=== PATIENT | male | born 1940 | race Caucasian/White ===

== ENCOUNTER 2020-04-22 06:26 | Outpatient (REF) | payer MEDICARE, MEDICAID, SELFPAY ==
[2020-04-22 07:23] LABS: MANUAL DIFF FLAG NO
[2020-04-22 07:26] LABS: Basophils Percent Auto 0.5 % (0-2); Eosinophils Absolute Auto 0.3 X10*3/uL (0.0-0.4); Hematocrit 44.7 % (42-52); Hemoglobin 14.6 g/dl (14.0-18.0); Imm Gran Abs Auto 0.03 X10*3/uL (0.00-0.03); Imm Gran Pct Auto 0.4 % (0.0-0.4); Lymphocytes Absolute Auto 2.4 X10*3/uL (1.2-4.9); Lymphocytes Percent Auto 31.2 % (20-40); Mean Corpuscular HGB Conc 32.7 g/dl (31.0-36.0); Mean Corpuscular Hemoglobin 31.3 pg (27.0-33.0); Mean Corpuscular Volume 95.7 fL (80-98); Mean Platelet Volume 10.3 fL (9.4-12.4); Monocytes Absolute Auto 0.7 X10*3/uL (0.1-1.2); Monocytes Percent Auto 9.5 % (2-11); Neutrophils Absolute Auto 4.3 X10*3/uL (2.0-8.3); Neutrophils Percent Auto 54.4 % (45-73); Platelet Count 259 X10*3/uL (160-400); Red Blood Count 4.67 X10*6/uL (4.60-5.80); Red Cell Distribution Width 13.2 % (11.0-16.0); White Blood Count 7.8 X10*3/uL (4.8-10.8)
[2020-04-22 07:51] LABS: Alanine Aminotransferase 35 U/L (0-40); Albumin Level 4.1 g/dL (3.5-5.0); Alkaline Phosphatase 65 U/L (39-117); Anion Gap 14 (12-20); Aspartate Amino Transferase 19 U/L (5-37); Bilirubin Total 0.2 mg/dL (0.0-1.0); Blood Urea Nitrogen 15 mg/dL (9-16); Carbon Dioxide 27 mmol/L (22-29); Chloride 102 mmol/L (96-108); Cholesterol 149 mg/dL; Estimated Glomerular Filt Rate > 60; Glucose Fasting 139 mg/dL (60-99); HDL Cholesterol 32 mg/dL; LDL Cholesterol Calculated 81 mg/dl; Potassium 4.7 mmol/l (3.3-5.1); Sodium 138 mmol/L (135-145); Total Protein 6.7 g/dL (6.5-8.0); Triglycerides 184 mg/dL
[2020-04-22 08:03] LABS: Estimated Average Glucose 200 mg/dL; Hemoglobin A1c % 8.6 %
== END 2020-04-22 06:27 | disposition home or self-care (01) ==
LOC: HO.LAB 06:26
PROVIDERS: Visit Provider Internal Medicine Medical Oncology
DX: E78.5 Hyperlipidemia, unspecified (principal); E11.9 Type 2 diabetes mellitus without complications
CPT/HCPCS: 36415; 80053; 80061; 83036; 85025

== ENCOUNTER 2020-07-15 07:16 | Outpatient (REF) | payer MEDICARE, MEDICAID, SELFPAY ==
[2020-07-15 07:41] LABS: MANUAL DIFF FLAG NO
[2020-07-15 07:53] LABS: Estimated Average Glucose 189 mg/dL; Hemoglobin A1c % 8.2 %
[2020-07-15 07:56] LABS: Basophils Percent Auto 0.5 % (0-2); Eosinophils Absolute Auto 0.3 X10*3/uL (0.0-0.4); Eosinophils Percent Auto 3.9 % (0-4); Hematocrit 44.5 % (42-52); Hemoglobin 14.6 g/dl (14.0-18.0); Imm Gran Abs Auto 0.02 X10*3/uL (0.00-0.03); Imm Gran Pct Auto 0.3 % (0.0-0.4); Lymphocytes Absolute Auto 2.6 X10*3/uL (1.2-4.9); Lymphocytes Percent Auto 32.3 % (20-40); Mean Corpuscular HGB Conc 32.8 g/dl (31.0-36.0); Mean Corpuscular Hemoglobin 30.7 pg (27.0-33.0); Mean Corpuscular Volume 93.5 fL (80-98); Mean Platelet Volume 10.1 fL (9.4-12.4); Monocytes Absolute Auto 0.8 X10*3/uL (0.1-1.2); Monocytes Percent Auto 9.5 % (2-11); Neutrophils Absolute Auto 4.3 X10*3/uL (2.0-8.3); Neutrophils Percent Auto 53.5 % (45-73); Platelet Count 285 X10*3/uL (160-400); Red Blood Count 4.76 X10*6/uL (4.60-5.80); Red Cell Distribution Width 13.3 % (11.0-16.0)
[2020-07-15 08:20] LABS: Alanine Aminotransferase 30 U/L (0-40); Albumin Level 4.1 g/dL (3.5-5.0); Alkaline Phosphatase 73 U/L (39-117); Anion Gap 14 (12-20); Aspartate Amino Transferase 22 U/L (5-37); Bilirubin Total 0.7 mg/dL (0.0-1.0); Blood Urea Nitrogen 14 mg/dL (9-16); Calcium 8.8 mg/dL (8.4-10.2); Carbon Dioxide 30 mmol/L (22-29); Chloride 101 mmol/L (96-108); Cholesterol 149 mg/dL; Estimated Glomerular Filt Rate > 60; Glucose Fasting 136 mg/dL (60-99); HDL Cholesterol 35 mg/dL; LDL Cholesterol Calculated 89 mg/dl; Potassium 4.6 mmol/L (3.3-5.1); Sodium 140 mmol/L (135-145); Total Protein 6.7 g/dL (6.5-8.0); Triglycerides 125 mg/dL
== END 2020-07-15 07:17 | disposition home or self-care (01) ==
LOC: HO.LAB 07:16
PROVIDERS: Visit Provider Internal Medicine Medical Oncology
DX: E78.5 Hyperlipidemia, unspecified (principal); I10 Essential (primary) hypertension; E11.9 Type 2 diabetes mellitus without complications
CPT/HCPCS: 36415; 80053; 80061; 83036; 85025

== ENCOUNTER 2020-10-14 05:55 | Outpatient (REF) | payer MEDICARE, MEDICAID, SELFPAY ==
[2020-10-14 06:59] LABS: MANUAL DIFF FLAG NO
[2020-10-14 07:05] LABS: Basophils Percent Auto 0.5 % (0-2); Eosinophils Absolute Auto 0.3 X10*3/uL (0.0-0.4); Eosinophils Percent Auto 3.6 % (0-4); Hematocrit 46.3 % (42-52); Imm Gran Abs Auto 0.03 X10*3/uL (0.00-0.03); Imm Gran Pct Auto 0.3 % (0.0-0.4); Lymphocytes Absolute Auto 2.4 X10*3/uL (1.2-4.9); Lymphocytes Percent Auto 28.1 % (20-40); Mean Corpuscular HGB Conc 32.4 g/dl (31.0-36.0); Mean Corpuscular Hemoglobin 30.2 pg (27.0-33.0); Mean Corpuscular Volume 93.3 fL (80-98); Mean Platelet Volume 10.4 fL (9.4-12.4); Monocytes Absolute Auto 0.8 X10*3/uL (0.1-1.2); Monocytes Percent Auto 8.9 % (2-11); Neutrophils Percent Auto 58.6 % (45-73); Platelet Count 249 X10*3/uL (160-400); Red Blood Count 4.96 X10*6/uL (4.60-5.80); Red Cell Distribution Width 13.7 % (11.0-16.0); White Blood Count 8.6 X10*3/uL (4.8-10.8)
[2020-10-14 07:23] LABS: Alanine Aminotransferase 31 U/L (0-40); Albumin Level 4.5 g/dL (3.5-5.0); Alkaline Phosphatase 81 U/L (39-117); Anion Gap 13 (12-20); Aspartate Amino Transferase 20 U/L (5-37); Bilirubin Total 0.5 mg/dL (0.0-1.0); Blood Urea Nitrogen 15 mg/dL (9-16); Calcium 9.3 mg/dL (8.4-10.2); Carbon Dioxide 29 mmol/L (22-29); Chloride 102 mmol/L (96-108); Cholesterol 181 mg/dL; Estimated Glomerular Filt Rate > 60; Glucose Fasting 143 mg/dL (60-99); HDL Cholesterol 37 mg/dL; LDL Cholesterol Calculated 117 mg/dl; Potassium 4.5 mmol/L (3.3-5.1); Sodium 139 mmol/L (135-145); Total Protein 7.1 g/dL (6.5-8.0); Triglycerides 138 mg/dL
[2020-10-14 07:33] LABS: Creatinine Urine 93.02 mg/dL; Microalbum/Creatinine Ratio Ur 374.1 ug/mg cr
[2020-10-14 08:19] LABS: Estimated Average Glucose 180 mg/dL; Hemoglobin A1c % 7.9 %
== END 2020-10-14 05:56 | disposition home or self-care (01) ==
LOC: HO.LAB 05:55
PROVIDERS: PCP Internal Medicine Medical Oncology; Visit Provider Internal Medicine Medical Oncology
DX: E11.9 Type 2 diabetes mellitus without complications (principal); E78.5 Hyperlipidemia, unspecified; I10 Essential (primary) hypertension
CPT/HCPCS: 36415; 80053; 80061; 82043; 83036; 85025

== ENCOUNTER 2021-01-13 06:06 | Outpatient (REF) | payer MEDICARE, MEDICAID, SELFPAY ==
[2021-01-13 06:40] LABS: MANUAL DIFF FLAG NO
[2021-01-13 06:51] LABS: Estimated Average Glucose 192 mg/dL; Hemoglobin A1c % 8.3 %
[2021-01-13 06:53] LABS: Basophils Percent Auto 0.4 % (0-2); Eosinophils Absolute Auto 0.4 X10*3/uL (0.0-0.4); Eosinophils Percent Auto 4.5 % (0-4); Hematocrit 43.3 % (42-52); Hemoglobin 14.2 g/dl (14.0-18.0); Imm Gran Abs Auto 0.06 X10*3/uL (0.00-0.03); Imm Gran Pct Auto 0.7 % (0.0-0.4); Lymphocytes Absolute Auto 2.6 X10*3/uL (1.2-4.9); Lymphocytes Percent Auto 28.4 % (20-40); Mean Corpuscular HGB Conc 32.8 g/dl (31.0-36.0); Mean Corpuscular Volume 94.5 fL (80-98); Mean Platelet Volume 10.2 fL (9.4-12.4); Monocytes Absolute Auto 0.9 X10*3/uL (0.1-1.2); Monocytes Percent Auto 9.4 % (2-11); Neutrophils Absolute Auto 5.2 X10*3/uL (2.0-8.3); Neutrophils Percent Auto 56.6 % (45-73); Platelet Count 252 X10*3/uL (160-400); Red Blood Count 4.58 X10*6/uL (4.60-5.80); Red Cell Distribution Width 13.9 % (11.0-16.0); White Blood Count 9.1 X10*3/uL (4.8-10.8)
[2021-01-13 06:58] LABS: Alanine Aminotransferase 38 U/L (0-40); Albumin Level 4.4 g/dL (3.5-5.0); Alkaline Phosphatase 70 U/L (39-117); Anion Gap 14 (12-20); Aspartate Amino Transferase 20 U/L (5-37); Bilirubin Total 0.3 mg/dL (0.0-1.0); Blood Urea Nitrogen 19 mg/dL (9-16); Calcium 9.5 mg/dL (8.4-10.2); Carbon Dioxide 27 mmol/L (22-29); Chloride 104 mmol/L (96-108); Cholesterol 182 mg/dL; Estimated Glomerular Filt Rate > 60; Glucose Fasting 191 mg/dL (60-99); HDL Cholesterol 38 mg/dL; LDL Cholesterol Calculated 105 mg/dl; Potassium 4.9 mmol/L (3.3-5.1); Sodium 140 mmol/L (135-145); Triglycerides 197 mg/dL
[2021-01-13 09:33] LABS: Creatinine Urine 97.21 mg/dL; Microalbum/Creatinine Ratio Ur 347.7 ug/mg cr
== END 2021-01-13 06:07 | disposition home or self-care (01) ==
LOC: HO.LAB 06:06
PROVIDERS: PCP Internal Medicine Medical Oncology; Visit Provider Internal Medicine Medical Oncology
DX: E78.5 Hyperlipidemia, unspecified (principal); E11.9 Type 2 diabetes mellitus without complications; I10 Essential (primary) hypertension
CPT/HCPCS: 36415; 80053; 80061; 82043; 83036; 85025

== ENCOUNTER 2021-03-10 07:41 | Outpatient (REF) | payer MEDICARE, MEDICAID, SELFPAY ==
[2021-03-10 08:03] LABS: MANUAL DIFF FLAG NO
[2021-03-10 08:17] LABS: Basophils Percent Auto 0.4 % (0-2); Eosinophils Absolute Auto 0.4 X10*3/uL (0.0-0.4); Eosinophils Percent Auto 3.9 % (0-4); Hematocrit 42.4 % (42-52); Hemoglobin 14.2 g/dl (14.0-18.0); Imm Gran Abs Auto 0.04 X10*3/uL (0.00-0.03); Imm Gran Pct Auto 0.4 % (0.0-0.4); Lymphocytes Absolute Auto 2.7 X10*3/uL (1.2-4.9); Lymphocytes Percent Auto 27.8 % (20-40); Mean Corpuscular HGB Conc 33.5 g/dl (31.0-36.0); Mean Corpuscular Hemoglobin 31.4 pg (27.0-33.0); Mean Corpuscular Volume 93.8 fL (80-98); Mean Platelet Volume 9.9 fL (9.4-12.4); Monocytes Absolute Auto 0.9 X10*3/uL (0.1-1.2); Monocytes Percent Auto 9.1 % (2-11); Neutrophils Absolute Auto 5.6 X10*3/uL (2.0-8.3); Neutrophils Percent Auto 58.4 % (45-73); Platelet Count 238 X10*3/uL (160-400); Red Blood Count 4.52 X10*6/uL (4.60-5.80); Red Cell Distribution Width 13.4 % (11.0-16.0); White Blood Count 9.6 X10*3/uL (4.8-10.8)
[2021-03-10 08:29] LABS: Estimated Average Glucose 192 mg/dL; Hemoglobin A1c % 8.3 %
[2021-03-10 08:47] LABS: Alanine Aminotransferase 29 U/L (0-40); Albumin Level 4.3 g/dL (3.5-5.0); Alkaline Phosphatase 76 U/L (39-117); Anion Gap 14 (12-20); Aspartate Amino Transferase 18 U/L (5-37); Bilirubin Total 0.6 mg/dL (0.0-1.0); Blood Urea Nitrogen 14 mg/dL (9-16); Calcium 9.3 mg/dL (8.4-10.2); Carbon Dioxide 28 mmol/L (22-29); Chloride 103 mmol/L (96-108); Estimated Glomerular Filt Rate > 60; Glucose Random 197 mg/dL (60-115); Potassium 4.9 mmol/L (3.3-5.1); Sodium 140 mmol/L (135-145); Total Protein 6.9 g/dL (6.5-8.0)
[2021-03-10 10:05] LABS: Prostate Specific Antigen 1.37 ng/mL (<0.05-4.0)
== END 2021-03-10 07:42 | disposition home or self-care (01) ==
LOC: HO.LAB 07:41
PROVIDERS: PCP Internal Medicine Medical Oncology; Visit Provider Internal Medicine Medical Oncology
DX: Z12.5 Encounter for screening for malignant neoplasm of prostate (principal); E11.9 Type 2 diabetes mellitus without complications; I10 Essential (primary) hypertension; N40.0 Benign prostatic hyperplasia without lower urinary tract symptoms; E78.5 Hyperlipidemia, unspecified
CPT/HCPCS: 36415; 80053; 83036; 84153; 85025

== ENCOUNTER 2021-06-17 06:54 | Outpatient (REF) | payer MEDICARE, MEDICAID, SELFPAY ==
[2021-06-17 07:05] LABS: MANUAL DIFF FLAG NO
[2021-06-17 07:10] LABS: Basophils Percent Auto 0.3 % (0-2); Eosinophils Absolute Auto 0.5 X10*3/uL (0.0-0.4); Eosinophils Percent Auto 5.2 % (0-4); Hematocrit 46.1 % (42.0-52.0); Hemoglobin 15.1 g/dl (14.0-18.0); Imm Gran Abs Auto 0.03 X10*3/uL (0.00-0.03); Imm Gran Pct Auto 0.3 % (0.0-0.4); Lymphocytes Absolute Auto 2.9 X10*3/uL (1.2-4.9); Lymphocytes Percent Auto 30.7 % (20-40); Mean Corpuscular HGB Conc 32.8 g/dl (31.0-36.0); Mean Corpuscular Hemoglobin 31.1 pg (27.0-33.0); Mean Corpuscular Volume 94.9 fL (80.0-98.0); Mean Platelet Volume 9.7 fL (9.4-12.4); Monocytes Absolute Auto 0.9 X10*3/uL (0.1-1.2); Monocytes Percent Auto 9.2 % (2-11); Neutrophils Percent Auto 54.3 % (45-73); Platelet Count 260 X10*3/uL (160-400); Red Blood Count 4.86 X10*6/uL (4.60-5.80); Red Cell Distribution Width 13.9 % (11.0-16.0); White Blood Count 9.3 X10*3/uL (4.8-10.8)
[2021-06-17 07:20] LABS: Estimated Average Glucose 180 mg/dL; Hemoglobin A1c % 7.9 %
[2021-06-17 07:33] LABS: Alanine Aminotransferase 25 U/L (0-40); Albumin Level 4.3 g/dL (3.5-5.0); Alkaline Phosphatase 72 U/L (39-117); Anion Gap 12 (12-20); Aspartate Amino Transferase 19 U/L (5-37); Bilirubin Total 0.4 mg/dL (0.0-1.0); Blood Urea Nitrogen 17 mg/dL (9-16); Calcium 9.6 mg/dL (8.4-10.2); Carbon Dioxide 28 mmol/L (22-29); Chloride 105 mmol/L (96-108); Cholesterol 185 mg/dL; Estimated Glomerular Filt Rate > 60; Glucose Fasting 162 mg/dL (60-99); HDL Cholesterol 32 mg/dL; LDL Cholesterol Calculated 93 mg/dl; Potassium 4.9 mmol/L (3.3-5.1); Sodium 140 mmol/L (135-145); Total Protein 7.1 g/dL (6.5-8.0); Triglycerides 303 mg/dL
== END 2021-06-17 06:55 | disposition home or self-care (01) ==
LOC: HO.LAB 06:54
PROVIDERS: PCP Internal Medicine Medical Oncology; Visit Provider Internal Medicine Medical Oncology
DX: E11.9 Type 2 diabetes mellitus without complications (principal); I10 Essential (primary) hypertension
CPT/HCPCS: 36415; 80053; 80061; 83036; 85025

== ENCOUNTER 2021-09-24 06:38 | Outpatient (REF) | payer MEDICARE, MEDICAID, SELFPAY ==
[2021-09-24 07:44] LABS: Blood Urea Nitrogen 18 mg/dL (9-16); Estimated Glomerular Filt Rate > 60
== END 2021-09-24 06:39 | disposition home or self-care (01) ==
LOC: HO.LAB 06:38
PROVIDERS: PCP Internal Medicine Medical Oncology; Visit Provider Surgery
DX: I73.9 Peripheral vascular disease, unspecified (principal)
CPT/HCPCS: 36415; 82565; 84520

== ENCOUNTER 2021-10-08 09:02 | Outpatient (REF) | payer MEDICARE, MEDICAID, SELFPAY ==
--- NOTE | ~2021-10-08 | CT_ITS ---
STUDY PERFORMED: CT ANGIOGRAM ABDOMEN, PELVIS AND LOWER EXTREMITY RUNOFF WITH CONTRAST HISTORY: Atherosclerosis of [place] arteries. DESCRIPTION: Routine abdominal aorta and lower extremity runoff CTA protocol with contrast was performed. 100 mL of Omnipaque 350 was administered. 3D POSTPROCESSING: Multiple 3-D angiographic images were processed from the initial data set by the [facility] under concurrent physician supervision. This CT examination was performed using dose optimization techniques as appropriate, variously including the following: *Automated exposure control *Adjustment of mA and/or kV according to patient size (this includes techniques or standardized protocols for targeted exams where dose is matched to indication/reason for exam; i.e. extremities or head) *Use of iterative reconstruction technique DLP: 407 mGy-cm. COMPARISON: CT abdomen and pelvis 07/15/2017, ultrasound abdomen 07/08/2017. FINDINGS: VASCULAR: ABDOMINAL AORTA: Calcific and noncalcific atherosclerotic changes with one area of mild narrowing just above the level of the DOC with moderate noncalcified plaque/thrombus filling the lumen on the right. No aortic aneurysm. No dissection. RIGHT LOWER EXTREMITY: - Common Iliac Artery: Atherosclerotic changes without stenosis. - Internal Iliac Artery: Origin stenosis. - External Iliac Artery: Wfyz-[id number]-qaqrvlca stenosis. - Common Femoral Artery: No stenosis. - Profunda Femoral Artery: Patent. - Superficial Femoral Artery: Multiple areas of severe stenoses in the mid SFA at and above the level of the adductor canal. - Popliteal Artery: No stenosis. - Tibioperoneal Trunk: Patent - Posterior Tibial Artery: Patent. - Peroneal Artery: Patent. - Anterior Tibial Artery: Patent. LEFT LOWER EXTREMITY: - Common Iliac Artery: Atherosclerotic changes without significant stenosis. - Internal Iliac Artery: Origin stenosis. - External Iliac Artery: Uuhy-ui-wdslpdfb disease. - Common Femoral Artery: No stenosis. - Profunda Femoral Artery: Patent. - Superficial Femoral Artery: Severe disease/occlusion of the adductor canal. - Popliteal Artery: Patent. - Tibioperoneal Trunk: Patent - Posterior Tibial Artery: Patent. - Peroneal Artery: Patent. - Anterior Tibial Artery: Patent. CELIOMESENTERIC ARTERIES: All patent with some mild ostial disease involving the SMA and DOC. RENAL ARTERIES: Single renal arteries bilaterally are patent. NONVASCULAR: Lung Bases: The visualized lung bases are unremarkable. There is reflux of IV contrast into the IVC. Liver, Gallbladder and Biliary Tree: The visualized liver is most likely enlarged although the entire liver is not included on the study. There is decreased attenuation consistent with hepatic steatosis. The gallbladder has small high-density layering densities consistent with gallstones seen on prior imaging studies better. The gallbladder is otherwise unremarkable with no evidence of gallbladder wall thickening, or obvious pericholecystic inflammatory changes. Pancreas: Unremarkable. Spleen: Unremarkable. Adrenal Glands: Unremarkable. Kidneys and Ureters: The kidneys are normal in size, shape, and attenuation. Bilateral Bosniak class I renal cysts are present which need no further imaging or follow up. No hydronephrosis, hydroureter, or calculi seen. No perinephric stranding. Bladder: Unremarkable. Gastrointestinal Tract: The small and large bowel are unremarkable. The appendix is not seen but there is no evidence of appendicitis. Abdominal Wall: Small inguinal hernias are seen containing only fat. Lymph Nodes: No retroperitoneal lymphadenopathy. Pelvic Viscera: There is BPH. Seminal vesicles appear normal. Osseous Structures: Degenerative changes are present in the spine. No bony destructive lesions. CT/CT angio abd aorta runoff IMPRESSION: 1. Mddx-cq-emcuolej atherosclerotic changes in the aorta. 2. Right runoff with mild iliac disease and multiple tight stenoses in the SFA with good 3-vessel peripheral runoff. 3. Left runoff with mild iliac disease and severe mid SFA stenoses/occlusive disease with good 3-vessel runoff. 4. Nonvascular findings significant for enlarged fatty liver and BPH among other findings described above.
[2021-10-08] MEDS: iohexoL 350 MG/ML 100 ML INFUS..BTL IV (10:40)
== END 2021-10-08 09:03 | disposition home or self-care (01) ==
LOC: HO.CT 09:02
PROVIDERS: PCP Internal Medicine Medical Oncology; Visit Provider Physician Assistant
DX: I70.213 Atherosclerosis of native arteries of extremities with intermittent claudication, bilateral legs (principal)
CPT/HCPCS: 75635; Q9967

== ENCOUNTER 2021-12-08 05:58 | Outpatient (REF) | payer MEDICARE, MEDICAID, SELFPAY ==
[2021-12-08 06:03] LABS: MANUAL DIFF FLAG NO
[2021-12-08 08:05] LABS: Basophils Percent Auto 0.3 % (0-2); Eosinophils Absolute Auto 0.4 X10*3/uL (0.0-0.4); Eosinophils Percent Auto 4.2 % (0-4); Hematocrit 43.8 % (42.0-52.0); Hemoglobin 14.2 g/dl (14.0-18.0); Imm Gran Abs Auto 0.04 X10*3/uL (0.00-0.03); Imm Gran Pct Auto 0.4 % (0.0-0.4); Lymphocytes Percent Auto 30.3 % (20-40); Mean Corpuscular HGB Conc 32.4 g/dl (31.0-36.0); Mean Corpuscular Hemoglobin 30.5 pg (27.0-33.0); Mean Corpuscular Volume 94.2 fL (80.0-98.0); Mean Platelet Volume 10.3 fL (9.4-12.4); Monocytes Absolute Auto 0.9 X10*3/uL (0.1-1.2); Monocytes Percent Auto 9.4 % (2-11); Neutrophils Absolute Auto 5.5 x10*3/uL (2.0-8.3); Neutrophils Percent Auto 55.4 % (45-73); Platelet Count 305 X10*3/uL (160-400); Red Blood Count 4.65 X10*6/uL (4.60-5.80); Red Cell Distribution Width 13.7 % (11.0-16.0); White Blood Count 9.9 X10*3/uL (4.8-10.8)
[2021-12-08 08:34] LABS: Alanine Aminotransferase 40 U/L (0-40); Albumin Level 4.4 g/dL (3.5-5.0); Alkaline Phosphatase 81 U/L (39-117); Anion Gap 14 (12-20); Aspartate Amino Transferase 27 U/L (5-37); Bilirubin Total 0.4 mg/dL (0.0-1.0); Blood Urea Nitrogen 17 mg/dL (9-16); Calcium 9.2 mg/dL (8.4-10.2); Carbon Dioxide 26 mmol/L (22-29); Chloride 102 mmol/L (96-108); Cholesterol 108 mg/dL; Estimated Glomerular Filt Rate > 60; Glucose Fasting 164 mg/dL (60-99); HDL Cholesterol 36 mg/dL; LDL Cholesterol Calculated 46 mg/dl; Potassium 5.3 mmol/L (3.3-5.1); Sodium 137 mmol/L (135-145); Total Protein 7.1 g/dL (6.5-8.0); Triglycerides 133 mg/dL
== END 2021-12-08 05:59 | disposition home or self-care (01) ==
LOC: HO.LAB 05:58
PROVIDERS: PCP Internal Medicine Medical Oncology; Visit Provider Internal Medicine Medical Oncology
DX: I10 Essential (primary) hypertension (principal); E11.9 Type 2 diabetes mellitus without complications; R91.1 Solitary pulmonary nodule; J44.9 Chronic obstructive pulmonary disease, unspecified; E78.5 Hyperlipidemia, unspecified
CPT/HCPCS: 36415; 80053; 80061; 82550; 85025

== ENCOUNTER 2021-12-22 06:22 | Outpatient (REF) | payer MEDICARE, MEDICAID, SELFPAY ==
[2021-12-22 08:00] LABS: Estimated Average Glucose 206 mg/dL; Hemoglobin A1c % 8.8 %
[2021-12-22 08:46] LABS: Prostate Specific Antigen 0.74 ng/mL (<0.05-4.0)
== END 2021-12-22 06:23 | disposition home or self-care (01) ==
LOC: HO.LAB 06:22
PROVIDERS: PCP Internal Medicine Medical Oncology; Visit Provider Internal Medicine Medical Oncology
DX: Z12.5 Encounter for screening for malignant neoplasm of prostate (principal); E11.9 Type 2 diabetes mellitus without complications; N40.0 Benign prostatic hyperplasia without lower urinary tract symptoms; E78.5 Hyperlipidemia, unspecified
CPT/HCPCS: 36415; 83036; 84153

== ENCOUNTER 2022-02-10 08:05 | Outpatient (REF) | payer MEDICARE, MEDICAID, SELFPAY ==
--- NOTE | ~2022-02-10 | US_ITS ---
EXAMINATION: US RETROPERITONEAL LIMITED (RENAL ONLY) CLINICAL INFORMATION: Kidney cyst. COMPARISON: CTA 10/08/2021. TECHNIQUE: Real-time imaging of the kidneys. FINDINGS: RIGHT KIDNEY: 11.7 x 4.9 x 5.2 cm (SAG x AP x TRV). The kidney is normal in size, contour, and echogenicity. Renal cortical thickness is normal. No renal calculi or hydronephrosis. Multiple anechoic right renal cysts are present the largest measuring 1.3 cm in the upper pole of the right kidney. LEFT KIDNEY: 11.9 x 4.9 x 5.0 cm (SAG x AP x TRV). The kidney is normal in size, contour, and echogenicity. Renal cortical thickness is normal. There is mild left hydronephrosis. Several calculi are seen, the largest 2.4 cm in the left mid kidney with a 7 mm left lower pole calculus. There is a 5.8 cm anechoic cyst exophytic from the lateral cortex of left mid kidney. US/US renal BI IMPRESSION: Mild left hydronephrosis with left-sided renal calculi up to 2.4 cm. Bilateral simple renal cysts for which no imaging follow-up is recommended.
== END 2022-02-10 08:06 | disposition home or self-care (01) ==
LOC: HO.US 08:05
PROVIDERS: Visit Provider Internal Medicine Medical Oncology
DX: N28.1 Cyst of kidney, acquired (principal); N28.89 Other specified disorders of kidney and ureter
CPT/HCPCS: 76775

== ENCOUNTER → 2022-02-17 11:56 | Outpatient (BNVA) | payer MEDICARE, MEDICAID, SELFPAY | PROVIDERS: PCP Internal Medicine Medical Oncology; Visit Provider Urology | DX: N20.0 Calculus of kidney (principal); N40.0 Benign prostatic hyperplasia without lower urinary tract symptoms | CPT/HCPCS: Q3014 ==

== ENCOUNTER 2022-03-23 06:41 | Outpatient (REF) | payer MEDICARE, MEDICAID, SELFPAY ==
[2022-03-23 06:56] LABS: MANUAL DIFF FLAG NO
[2022-03-23 07:57] LABS: Basophils Absolute Auto 0.1 X10*3/uL (0.0-0.2); Basophils Percent Auto 0.5 % (0-2); Eosinophils Absolute Auto 0.4 X10*3/uL (0.0-0.4); Eosinophils Percent Auto 4.5 % (0-4); Hematocrit 43.7 % (42.0-52.0); Hemoglobin 14.3 g/dl (14.0-18.0); Imm Gran Abs Auto 0.04 X10*3/uL (0.00-0.03); Imm Gran Pct Auto 0.4 % (0.0-0.4); Lymphocytes Absolute Auto 3.1 X10*3/uL (1.2-4.9); Lymphocytes Percent Auto 32.4 % (20-40); Mean Corpuscular HGB Conc 32.7 g/dl (31.0-36.0); Mean Corpuscular Volume 94.8 fL (80.0-98.0); Mean Platelet Volume 9.9 fL (9.4-12.4); Monocytes Absolute Auto 0.9 X10*3/uL (0.1-1.2); Monocytes Percent Auto 9.4 % (2-11); Neutrophils Percent Auto 52.8 % (45-73); Platelet Count 299 X10*3/uL (160-400); Red Blood Count 4.61 X10*6/uL (4.60-5.80); Red Cell Distribution Width 14.2 % (11.0-16.0); White Blood Count 9.5 X10*3/uL (4.8-10.8)
[2022-03-23 08:21] LABS: Alanine Aminotransferase 20 U/L (0-40); Albumin Level 4.4 g/dL (3.5-5.0); Alkaline Phosphatase 80 U/L (39-117); Anion Gap 16 (12-20); Aspartate Amino Transferase 15 U/L (5-37); Bilirubin Total 0.3 mg/dL (0.0-1.0); Blood Urea Nitrogen 15 mg/dL (9-16); Calcium 9.4 mg/dL (8.4-10.2); Carbon Dioxide 26 mmol/L (22-29); Chloride 104 mmol/L (96-108); Cholesterol 171 mg/dL; Estimated Glomerular Filt Rate > 60; Glucose Fasting 122 mg/dL (60-99); HDL Cholesterol 34 mg/dL; LDL Cholesterol Calculated 94 mg/dl; Potassium 4.4 mmol/L (3.3-5.1); Sodium 142 mmol/L (135-145); Triglycerides 215 mg/dL
[2022-03-23 08:40] LABS: Prostate Specific Antigen 0.77 ng/mL (<0.05-4.0)
[2022-03-23 08:54] LABS: Estimated Average Glucose 180 mg/dL; Hemoglobin A1c % 7.9 %
== END 2022-03-23 06:42 | disposition home or self-care (01) ==
LOC: HO.LAB 06:41
PROVIDERS: PCP Internal Medicine Medical Oncology; Visit Provider Internal Medicine Medical Oncology
DX: Z12.5 Encounter for screening for malignant neoplasm of prostate (principal); I10 Essential (primary) hypertension; E11.9 Type 2 diabetes mellitus without complications; J44.9 Chronic obstructive pulmonary disease, unspecified; N40.0 Benign prostatic hyperplasia without lower urinary tract symptoms; E78.5 Hyperlipidemia, unspecified
CPT/HCPCS: 36415; 80053; 80061; 83036; 84153; 85025

== ENCOUNTER 2022-06-05 13:36 | Outpatient (REF) | payer MEDICARE, MEDICAID, SELFPAY ==
--- NOTE | ~2022-06-05 | CT_ITS ---
EXAMINATION: CT KIDNEY STONE CLINICAL INFORMATION: Calculus of kidney. COMPARISON: Ultrasound abdomen 02/10/2022 and CTA 09/28/2021. TECHNIQUE: 5 mm thin axial and 2 mm thin sagittal and coronal reconstruction images of brain were obtained. DLP: 281 mGy-cm. This CT examination was performed using dose optimization technique as appropriate, variously including the following: Automated exposure control Adjustment of MA and/or KV according to patient size(this includes techniques or standardized protocols for targeted exams where dose is matched to indication/reason for exam; extremities or head. Use of iterative reconstruction techniques. FINDINGS: The lung bases are clear. Heart size is normal. The liver is mildly enlarged in size measuring 17 cm. It has normal contour and density. No focal lesions or intrahepatic ductal dilatation seen. The gallbladder is contracted with hyperdense material within question stone versus sludge on axial image 30/3. The spleen is unremarkable. The pancreas is unremarkable. Bilateral adrenal glands are symmetrical and normal. Both kidneys are normal size, shape and position. There is an exophytic 3.6 x 2.7 x 5.7 cm exophytic cyst along the lateral cortex of left kidney. Several of radiopaque calculi seen in lower pole left kidney with the largest measuring 8mm. There is a large partially obstructive 2.7 x 2.0 cm calculi left renal pelvis with mild hydronephrosis. No renal calculi seen in the right kidney. There is no right-sided hydronephrosis. There is bilateral perinephric stranding. The abdominal aorta appears atherosclerotic and nondilated. There is a left common iliac stent in place. No abnormal size lymph nodes seen. There is scattered stool and gas seen throughout the colon without distention. The small bowel loops are normal caliber. Appendix is not seen. No free air or free fluid seen. The abdominal wall is unremarkable. The prostate gland is normal size. The bladder is unremarkable. No abnormal-sized mediastinal or hilar lymph nodes seen. Bone windows reveal moderate ventral spondylosis. No aggressive lytic or sclerotic process seen. CT/CT kidney stone IMPRESSION: Multiple radiopaque left renal urolith. Mild partially obstructive hydronephrosis. The right kidney is unremarkable. There is a left common iliac stent. Mild hepatomegaly. Suspect small gallstone or debris.
== END 2022-06-05 13:37 | disposition home or self-care (01) ==
LOC: HO.CT 13:36
PROVIDERS: PCP Internal Medicine Medical Oncology; Visit Provider Urology
DX: N20.0 Calculus of kidney (principal)
CPT/HCPCS: 74176

== ENCOUNTER 2022-06-24 07:49 | Outpatient (REF) | payer MEDICARE, MEDICAID, SELFPAY ==
[2022-06-24 08:05] LABS: MANUAL DIFF FLAG NO
[2022-06-24 08:30] LABS: Hematocrit 44.4 % (42.0-52.0); Hemoglobin 14.6 g/dl (14.0-18.0); Imm Gran Pct Auto 0.3 % (0.0-0.4); Mean Corpuscular HGB Conc 32.9 g/dl (31.0-36.0); Mean Corpuscular Hemoglobin 30.8 pg (27.0-33.0); Mean Corpuscular Volume 93.7 fL (80.0-98.0); Mean Platelet Volume 10.1 fL (9.4-12.4); Neutrophils Percent Auto 53.9 % (45-73); Platelet Count 282 X10*3/uL (160-400); Red Blood Count 4.74 X10*6/uL (4.60-5.80); Red Cell Distribution Width 13.8 % (11.0-16.0)
[2022-06-24 08:31] LABS: Basophils Absolute Auto 0.1 X10*3/uL (0.0-0.2); Basophils Percent Auto 0.6 % (0-2); Eosinophils Absolute Auto 0.4 X10*3/uL (0.0-0.4); Eosinophils Percent Auto 4.7 % (0-4); Imm Gran Abs Auto 0.03 X10*3/uL (0.00-0.03); Lymphocytes Absolute Auto 2.9 X10*3/uL (1.2-4.9); Lymphocytes Percent Auto 32.3 % (20-40); Monocytes Absolute Auto 0.7 X10*3/uL (0.1-1.2); Monocytes Percent Auto 8.2 % (2-11); Neutrophils Absolute Auto 4.9 x10*3/uL (2.0-8.3)
[2022-06-24 09:00] LABS: Estimated Average Glucose 174 mg/dL; Hemoglobin A1c % 7.7 %
[2022-06-24 09:08] LABS: Alanine Aminotransferase 21 U/L (0-40); Albumin Level 4.4 g/dL (3.5-5.0); Alkaline Phosphatase 88 U/L (39-117); Anion Gap 15 (12-20); Aspartate Amino Transferase 18 U/L (5-37); Bilirubin Total 0.4 mg/dL (0.0-1.0); Blood Urea Nitrogen 19 mg/dL (9-16); Calcium 9.7 mg/dL (8.4-10.2); Carbon Dioxide 25 mmol/L (22-29); Chloride 105 mmol/L (96-108); Cholesterol 168 mg/dL; Estimated Glomerular Filt Rate > 60; Glucose Fasting 113 mg/dL (60-99); HDL Cholesterol 35 mg/dL; LDL Cholesterol Calculated 101 mg/dl; Potassium 4.9 mmol/L (3.3-5.1); Sodium 140 mmol/L (135-145); Triglycerides 161 mg/dL
[2022-06-24 09:30] LABS: Prostate Specific Antigen 0.81 ng/mL (<0.05-4.0)
[2022-06-24 09:56] LABS: Creatinine Urine 82.41 mg/dL
== END 2022-06-24 07:50 | disposition home or self-care (01) ==
LOC: HO.LAB 07:49
PROVIDERS: PCP Internal Medicine Medical Oncology; Visit Provider Internal Medicine Medical Oncology
DX: Z12.5 Encounter for screening for malignant neoplasm of prostate (principal); J44.9 Chronic obstructive pulmonary disease, unspecified; E11.9 Type 2 diabetes mellitus without complications; I10 Essential (primary) hypertension
CPT/HCPCS: 36415; 80053; 80061; 82043; 83036; 84153; 85025

== ENCOUNTER → 2022-08-18 10:56 | Outpatient (BNVA) | payer MEDICARE, MEDICAID, SELFPAY | PROVIDERS: PCP Internal Medicine Medical Oncology; Visit Provider Urology | DX: N20.0 Calculus of kidney (principal) | CPT/HCPCS: 99212 ==

== ENCOUNTER 2022-09-16 06:43 | Outpatient (REF) | payer MEDICARE, MEDICAID, SELFPAY ==
[2022-09-16 06:51] LABS: MANUAL DIFF FLAG NO
[2022-09-16 07:11] LABS: Basophils Absolute Auto 0.1 X10*3/uL (0.0-0.2); Basophils Percent Auto 0.5 % (0-2); Eosinophils Absolute Auto 0.4 X10*3/uL (0.0-0.4); Eosinophils Percent Auto 3.9 % (0-4); Hemoglobin 14.6 g/dl (14.0-18.0); Imm Gran Abs Auto 0.03 X10*3/uL (0.00-0.03); Imm Gran Pct Auto 0.3 % (0.0-0.4); Lymphocytes Absolute Auto 3.4 X10*3/uL (1.2-4.9); Lymphocytes Percent Auto 32.6 % (20-40); Mean Corpuscular HGB Conc 32.4 g/dl (31.0-36.0); Mean Corpuscular Hemoglobin 30.9 pg (27.0-33.0); Mean Corpuscular Volume 95.3 fL (80.0-98.0); Mean Platelet Volume 10.2 fL (9.4-12.4); Monocytes Percent Auto 9.3 % (2-11); Neutrophils Absolute Auto 5.5 x10*3/uL (2.0-8.3); Neutrophils Percent Auto 53.4 % (45-73); Platelet Count 293 X10*3/uL (160-400); Red Blood Count 4.72 X10*6/uL (4.60-5.80); Red Cell Distribution Width 13.8 % (11.0-16.0); White Blood Count 10.3 X10*3/uL (4.8-10.8)
[2022-09-16 07:26] LABS: Estimated Average Glucose 183 mg/dL
[2022-09-16 07:48] LABS: Alanine Aminotransferase 22 U/L (0-40); Albumin Level 4.3 g/dL (3.5-5.0); Alkaline Phosphatase 77 U/L (39-117); Anion Gap 17 (12-20); Aspartate Amino Transferase 15 U/L (5-37); Bilirubin Total 0.5 mg/dL (0.0-1.0); Blood Urea Nitrogen 23 mg/dL (9-16); Calcium 9.4 mg/dL (8.4-10.2); Carbon Dioxide 25 mmol/L (22-29); Chloride 103 mmol/L (96-108); Cholesterol 186 mg/dL; Estimated Glomerular Filt Rate > 60; Glucose Fasting 190 mg/dL (60-99); HDL Cholesterol 36 mg/dL; LDL Cholesterol Calculated 113 mg/dl; Potassium 5.1 mmol/L (3.3-5.1); Sodium 140 mmol/L (135-145); Total Protein 6.7 g/dL (6.5-8.0); Triglycerides 186 mg/dL
== END 2022-09-16 06:44 | disposition home or self-care (01) ==
LOC: HO.LAB 06:43
PROVIDERS: PCP Internal Medicine Medical Oncology; Visit Provider Internal Medicine Medical Oncology
DX: Z00.00 Encounter for general adult medical examination without abnormal findings (principal); E11.9 Type 2 diabetes mellitus without complications; I10 Essential (primary) hypertension; E78.5 Hyperlipidemia, unspecified
CPT/HCPCS: 36415; 80053; 80061; 83036; 85025

== ENCOUNTER → 2022-09-28 08:39 | Day surgery (SDC) | payer MEDICARE, MEDICAID, SELFPAY ==
[2022-09-24 10:58] VITALS: BMI 21.1
--- NOTE | 2022-09-25 10:10 | P.CONAN_ITS ---
Documented by User: Edel Mitchell NP 09/25/22 10:47 HPI - Anesthesia Eval Consult details Narrative: 82yo M Left Cystoscopy, Ureteroroscopy, Retro, Laserwith stent,flexible scope PCP eval 08/2022 - stable Vascular eval 08/2022 - PAD with LE stents. Plavix on hold d/t hematuria r/t reanal stones. Vascular provider aware. Rec's treating stones so can resume Plavix. PMFSH Active Problems Active Problems: All Active Problems (Updated 09/24/22 @ 11:00 by Charo Zhang RN) Nephrolithiasis (Acute) Staghorn calculus (Acute) Enlarged prostate (Acute) Past Medical History Medical History COPD (chronic obstructive pulmonary disease) Diabetes mellitus, type II Elevated cholesterol Enlarged prostate Hearing loss History of kidney stones HTN (hypertension) Peripheral arterial disease Renal cysts, acquired, bilateral Rotator cuff impingement syndrome TIA (transient ischemic attack) Surgical History Surgical History History of left-sided carotid endarterectomy History of surgery Hx of cataract surgery Hx of lithotripsy Social History Social History (Updated 09/28/22 @ 11:39 by Mariela Overton MD) Are you a primary career development manager to a significant other at home: No Do you presently have visiting nurse or other home services: No Patient Tobacco Use Status: Current everyday Tobacco user Tobacco use type: Cigarette Cigarettes Per Day: 30 Smoked in Last 30 Days: Yes Use of substances other than those prescribed or required for medical reasons: No Have you been hit, kicked, punched, or otherwise hurt by someone within the past year? If so, by whom?: No Are you DNR?: No Advance Directives: No Advance Directives Information Provided: Yes (brochure mailed) Advance Directives on File: No Recently lost weight without trying: No Eating poorly because of decreased appetite: No Nutrition Risks: Surgical patient >75years Poor oral hygiene: No (upper & lower denture) Meds Allergies Allergy/AdvReac Type Severity Reaction Status Date / Time No Known Allergies Allergy Verified 09/28/22 09:42 [No Known Allergies*] Home Medications Medication Instructions Recorded Confirmed Last Taken Type glyburide 5 mg tablet 5 mg PO BID 02/17/22 09/24/22 Unknown History metformin 500 mg tablet 500 mg PO BID 02/17/22 09/24/22 Unknown History aspirin 81 mg tablet,delayed 81 mg PO DAILY 09/24/22 09/24/22 09/27/22 History release Exam Exam Date and Time: September 25, 2022 1010 Height,Weight and Vital Signs: Height 5 ft 5 in Weight 57.606 kg Pertinent Lab Results Pertinent Lab Results: Laboratory Tests 09/16/22 09/16/22 06:51 06:51 WBC 10.3 Hgb 14.6 Hct 45.0 Plt Count 293 Sodium 140 Potassium 5.1 Chloride 103 Carbon Dioxide 25 BUN 23 H Creatinine 1.04 Assessment and Plan Assessment Anesthesia Assessment: Chart Reviewed Documented by User: Mariela Overton MD 09/28/22 11:56 HPI - Anesthesia Eval Consult details Narrative: 82yo M Left Cystoscopy, Ureteroroscopy, Retro, Laserwith stent,flexible scope PCP eval 08/2022 - stable Vascular eval 08/2022 - PAD with LE stents. Plavix on hold d/t hematuria r/t reanal stones. Vascular provider aware. Rec's treating stones so can resume Plavix. Spoke with PCP, patient's BP has been 130-140's systolic. Agrees with plan for anxiolytic PMFSH Active Problems Active Problems: All Active Problems (Updated 09/24/22 @ 11:00 by Charo Zhang RN) Nephrolithiasis (Acute) Staghorn calculus (Acute) Enlarged prostate (Acute) Treated for HTN many years ago- patient states over 20yrs. [place] [facility] SBP 194. Symptoms of TIA. 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 States no issues with BP since. BP in PCPs offuce reportedly high( per patient- does not know numbers) but repeat by PCP 140/70. Will give some anxiolytic and see if BP improves. Past Medical History Medical History COPD (chronic obstructive pulmonary disease) Diabetes mellitus, type II Elevated cholesterol Enlarged prostate Hearing loss History of kidney stones HTN (hypertension) Peripheral arterial disease Renal cysts, acquired, bilateral Rotator cuff impingement syndrome TIA (transient ischemic attack) Family History Family history of problems with anesthesia: Yes (Father arrested twice srini-op. Was resuscitated but patient a little worried ) Surgical History Surgical History History of left-sided carotid endarterectomy History of surgery Hx of cataract surgery Hx of lithotripsy History of Problems with Anesthesia: No Social History Social History (Updated 09/28/22 @ 11:39 by Mariela Overton MD) Are you a primary career development manager to a significant other at home: No Do you presently have visiting nurse or other home services: No Patient Tobacco Use Status: Current everyday Tobacco user Tobacco use type: Cigarette Cigarettes Per Day: 30 Smoked in Last 30 Days: Yes Use of substances other than those prescribed or required for medical reasons: No Have you been hit, kicked, punched, or otherwise hurt by someone within the past year? If so, by whom?: No Are you DNR?: No Advance Directives: No Advance Directives Information Provided: Yes (brochure mailed) Advance Directives on File: No Recently lost weight without trying: No Eating poorly because of decreased appetite: No Nutrition Risks: Surgical patient >75years Poor oral hygiene: No (upper & lower denture) Meds Allergies Allergy/AdvReac Type Severity Reaction Status Date / Time No Known Allergies Allergy Verified 09/28/22 09:42 [No Known Allergies*] Home Medications Medication Instructions Recorded Confirmed Last Taken Type glyburide 5 mg tablet 5 mg PO BID 02/17/22 09/24/22 Unknown History metformin 500 mg tablet 500 mg PO BID 02/17/22 09/24/22 Unknown History aspirin 81 mg tablet,delayed 81 mg PO DAILY 09/24/22 09/24/22 09/27/22 History release Exam Height,Weight and Vital Signs: Height 5 ft 5 in Weight 57.606 kg Vital Signs Temp Pulse Resp BP Pulse Ox O2 Del Method 09/28/22 10:57 72 17 09/28/22 10:02 97.6 F 73 17 196/78 H 98 Room Air BP left 170/60 BP RUE as high as 214/78 Pertinent Lab Results Pertinent Lab Results: Laboratory Tests 09/16/22 09/16/22 06:51 06:51 WBC 10.3 Hgb 14.6 Hct 45.0 Plt Count 293 Sodium 140 Potassium 5.1 Chloride 103 Carbon Dioxide 25 BUN 23 H Creatinine 1.04 Lab Results 09/28/22 Range/Units 10:51 POC Glucose 154 H (60-115) mg/dL Narrative Narrative: Post small dose of versed BP 140-150/50-60s. Patient calmer Airway Mallampati Class: II TM Dist: >3cm Neck ROM: Full Denture: Upper and Lower Loose/Missing/Broken Teeth: Yes (No teeth in) Heart: RRR Lungs: CTAB. S/p respiratory treatment Assessment and Plan Assessment Anesthesia Assessment: Anesthesia Plan Discussed Final Anesthetic Review Family History of Problems with Anesthesia: Yes (Father arrested twice srini-op. Was resuscitated but patient a little worried ) History of Problems with Anesthesia: No NPO: Yes ASA Class: IV Final Preanesthetic Review: No Changes in Pt Med Stat, Meds/Allgs Chart Reviewed, Consent Obtained/Reviewed and Anes Risks/Benef Reviewed Patient Risk: High Procedure Risk: Low Assessment/Block/Sedation in SS: Assess/Block/Sedation-SS Anesthetic Plan Anesthetic Plan: GA Disposition: Standard PACU Documented by User: Юлия Beard MD 09/28/22 11:56 PMFSH Past Medical History Medical History COPD (chronic obstructive pulmonary disease) Diabetes mellitus, type II Elevated cholesterol Enlarged prostate Hearing loss History of kidney stones HTN (hypertension) Peripheral arterial disease Renal cysts, acquired, bilateral Rotator cuff impingement syndrome TIA (transient ischemic attack) Surgical History Surgical History History of left-sided carotid endarterectomy History of surgery Hx of cataract surgery Hx of lithotripsy Social History Social History (Updated 09/28/22 @ 11:39 by Mariela Overton MD) Are you a primary career development manager to a significant other at home: No Do you presently have visiting nurse or other home services: No Patient Tobacco Use Status: Current everyday Tobacco user Tobacco use type: Cigarette Cigarettes Per Day: 30 Smoked in Last 30 Days: Yes Use of substances other than those prescribed or required for medical reasons: No Have you been hit, kicked, punched, or otherwise hurt by someone within the past year? If so, by whom?: No Are you DNR?: No Advance Directives: No Advance Directives Information Provided: Yes (brochure mailed) Advance Directives on File: No Recently lost weight without trying: No Eating poorly because of decreased appetite: No Nutrition Risks: Surgical patient >75years Poor oral hygiene: No (upper & lower denture) Meds Allergies Allergy/AdvReac Type Severity Reaction Status Date / Time No Known Allergies Allergy Verified 09/28/22 09:42 [No Known Allergies*] Home Medications Medication Instructions Recorded Confirmed Last Taken Type glyburide 5 mg tablet 5 mg PO BID 02/17/22 09/24/22 Unknown History metformin 500 mg tablet 500 mg PO BID 02/17/22 09/24/22 Unknown History aspirin 81 mg tablet,delayed 81 mg PO DAILY 09/24/22 09/24/22 09/27/22 History release Exam Airway Mallampati Class: I
[2022-09-28] VITALS (12 sets, daily range): BP systolic 178–206; BP diastolic 43–84; PULSE 62–75; RESP 16–20; TEMP 36.4–36.6; O2SAT 96–100
--- NOTE | 2022-09-28 | ECG_ITS ---
Test Reason : pre op Blood Pressure : / mmHG Vent. Rate : 069 BPM Atrial Rate : 069 BPM P-R Int : 154 ms QRS Dur : 112 ms QT Int : 410 ms P-R-T Axes : 067 -61 064 degrees QTc Int : 439 ms Normal sinus rhythm Left anterior fascicular block Minimal voltage criteria for LVH, may be normal variant ( [place] product ) Cannot rule out Anterior infarct , age undetermined Abnormal ECG When compared with ECG of 17-SEP-2017 10:51, No significant change was found Referred By: Edel Mitchell Electronically Signed By:BISHNU DE LA CRUZ MD
--- NOTE | ~2022-09-28 | FL_ITS ---
EXAMINATION: XR FLUOROSCOPY WITH IMAGES CLINICAL INFORMATION: Urinary tract calculi. Cystoscopy with retrograde COMPARISON: CT stone study 06/05/2022 TECHNIQUE: Fluoroscopy Supervised By: Dr. Les Alcantar. Fluoroscopy Time: 52 seconds. Cumulative Dose: 10.44 mGy. Images: 2. FINDINGS: There are left urinary tract calculi. Guidewire seen in the left urinary tract. No extravasation of contrast. Final image shows left ureteral stent with proximal end overlying left renal fossa. FL/FL guidance in OR IMPRESSION: Fluoroscopy for urologic procedures.
--- NOTE | 2022-09-28 10:14 | MHC.SHP ---
Pre-Procedural Eval Section A Date of Service: 09/28/22 The patient is an INPATIENT: No Changes since office visit: No Cold of Flu in the past 2 weeks, No New Medical Problems, No Changes in Medication and No Patient answered all questions The History & Physical has been completed within 30 days and I have reviewed it.: No Section B Chief Complaint: Calculus of kidney Details of Present Illness: left staghorn calculus Relevant Family History (Specify if Yes): No Relevant Social History: None Present Medications: see Short Stay Collaborative assessment Medical History: Significant History History of Previous Operations: No relevant previous surgery Allergies: Allergies Allergy/AdvReac Type Severity Reaction Status Date / Time No Known Allergies Allergy Verified 09/28/22 09:42 [No Known Allergies*] Review of Systems Sugical H&P ROS: Negative: Constitution, Cardiovascular, Respiratory, Neurological, Psychiatric, Hem-Onc, Allergic/Immunologic, Gastrointestinal, Genitourinary, Musculoskeletal, Integumentary, Endocrine and Eyes/Ears/Nose/Throat Exam Surgical H&P Exam: Normal: HEENT, Normal: Heart, Normal: Lungs, Normal: Extremities, Normal: Abdomen, Normal: Skin and Normal: Neurological Plan Diagnosis/Plan: Unchanged (left cystocopy laser lithotripsy and stent) I have reviewed the history and physical and performed a pertinent physical examination on my patient. No changes have occurred unless specified. Time Spent With Patient Time: Total time managing care of this patient today ____ minutes.
[2022-09-28] MEDS: Lactated Ringers 1,000 ML 100 ML IVCONT (10:46)
[2022-09-28] MEDS: Albuterol Sulfate (0.083%) 2.5 MG/3 ML VIAL.NEB INHALE (10:56)
[2022-09-28 11:12] LABS: Glucose, Whole Blood 154 mg/dL (60-115)
--- NOTE | 2022-09-28 14:11 | W.PM.OPN ---
Operative Note Operative Note Date of Service: 09/28/22 Narrative: PreOperative Diagnosis: Left staghorn calculus Post Operative Diagnosis: Left staghorn calculus Procedure: - cystoscopy, left retrograde - left dilatation of ureteric orifice under fluoroscopy - left ureteroscopy, laser lithotripsy, stone basketing - 100% longer than typical modified 22 - left stent placement Surgeon: Dr Les Alcantar Anesthesia: General Indications for procedure: Large staghorn calculus, 2.5 cm, left kidney. Elderly status with concurrent cardiac issues. Recommend ureteroscopy with laser lithotripsy. Understands this may take more than 1 treatment due to total stone burden at over 10 cubic cm Procedure: After informed consent was verified patient was brought to the operating placed in supine position. Anesthesia was administered per protocol. Patient was placed in modified dorsal lithotomy position and prepped and draped in a sterile fashion. Safety pause time-out and side of surgery confirmed. Antibiotics confirmed. 22 [place] cystoscope was inserted per urethra. Bladder was normal in its entirety. Both ureteric orifices were in normal position. The left ureteric orifice was cannulated and a retrograde examination was performed. Large filling defect left renal pelvis consistent with large staghorn calculus. A Sensor guidewire was placed up to the level of the renal pelvis under fluoroscopy. The rigid cystoscope was removed and the inner cannula of ureteric access sheath was used under fluoroscopy to dilate the ureteric orifice. The ureteric access sheath was placed and the inner cannula with access wire removed - suction catheter used for access.. The digital flexible ureteral scope was placed. The stone was encountered. Using a holmium laser 365 fiber the stone was broken into small pieces using combination of hammer and dusting technique. Due to the large size the stones took approximately 80 minutes. This is 100% longer than typical. Fragments were also obtained and will be sent for analysis. There were many small fragments left when we made a decision to complete the procedure. At the completion of the stone procedure a Sensor wire was placed back into the renal pelvis. The rigid cystoscope was backloaded over the wire and advanced into the bladder. A 7 [place] by 26 cm double-J stent was placed into the renal pelvis and bladder under a combination of fluoroscopy and direct visualization. The bladder was emptied. The patient tolerated the procedure well and was extubated in the operating room, and transferred in stable condition to the recovery area. Pathology: Stones Drains: Stent as above
[2022-09-28] MEDS: Phenazopyridine HCL 100 MG TABLET PO (15:43)
[2022-09-28] MEDS: traMADoL HCL 50 MG TABLET PO (15:50)
[2022-09-28] MEDS: fentaNYL citrate/PF 100 MCG/2 ML VIAL 25 MCG IVPUSH ×2 (16:30→16:40)
--- NOTE | 2022-09-28 16:48 | PC.NURSE ---
patient in d/c lounge as per report from [facility] patient with flank pain, returned to pacu see md. Alcantar to bedside, see pyridium and tramadol as per orders see discussion with anesthesia for fentanyl and iv juna placed right a/c andfentanyl provided with effect oxybutinin as per md Alcantar provided continuing to monitor
[2022-09-28] MEDS: oxyBUTYnin chloride ER 5 MG TAB.ER.24 PO (17:03)
--- NOTE | 2022-09-28 17:32 | PC.NURSE ---
patient discharging as per md. Alcantar at this time to home.
--- NOTE | 2022-09-28 17:35 | PC.NURSE ---
as discussed with md. Palomo patient ordere for p.o. antiemetic prior to d/c, and patient instructed to and agreed to followup with pcp for hypertension.
[2022-09-28] MEDS: Ondansetron ODT 4 MG TAB.RAPDIS TRANSLINGU (17:39)
[2022-10-06 20:20] LABS: Stone Source KIDNEY STONE
== END ==
PROVIDERS: PCP Internal Medicine Medical Oncology; Visit Provider Urology
PROC: (CPT 52356; principal; 2022-09-28 10:30)
DX: N20.0 Calculus of kidney (principal); E11.9 Type 2 diabetes mellitus without complications
CPT/HCPCS: 52356; 82365; 82947; 88300; 93005; 94640; C1758; C1769; C2617; J0131; J1956; J2250; J3010; Q9967

== ENCOUNTER 2022-09-28 20:26 | Inpatient (IN) | payer MEDICARE, MEDICAID, SELFPAY ==
--- NOTE | ~2022-09-28 | CT_ITS ---
EXAMINATION: CT ABDOMEN AND PELVIS WITHOUT CONTRAST CLINICAL INFORMATION: Status post lithotripsy, stent placement, increased pain left side COMPARISON: 06/05/2022 TECHNIQUE: Multidetector volumetric imaging was performed from the superior aspect of the liver through the pubic symphysis. Sagittal and coronal reformatted images were obtained on the technologist's workstation. This CT examination was performed using dose optimization techniques as appropriate, variously including the following: *Automated exposure control *Adjustment of mA and/or kV according to patient size (this includes techniques or standardized protocols for targeted exams where dose is matched to indication/reason for exam; i.e. extremities or head) *Use of iterative reconstruction technique DLP: 307 mGy-cm FINDINGS: LUNG BASES: The visualized lung bases are unremarkable. LIVER, GALLBLADDER, AND BILIARY TREE: The liver is normal in size, shape, and attenuation. No focal hepatic lesion or biliary ductal dilatation is identified. Cholelithiasis is noted. PANCREAS: No peripancreatic inflammation. Redemonstrated small calcification at the pancreatic head. SPLEEN: Unremarkable. ADRENAL GLANDS: Unremarkable. KIDNEYS AND URETERS: A left-sided ureteral stent is present; the proximal end is in the upper pole calyces, while the distal end is in the bladder. No significant left-sided hydronephrosis. There is extensive calcification throughout the left renal calyces and pelvis, in keeping with sequelae of lithotripsy. No appreciable calculus in the left ureter. Left perinephric stranding is noted. There is an exophytic left renal cyst measuring up to approximately 3.8 cm in the axial plane; no follow-up recommended. No right-sided hydronephrosis or obstructing calculus. A few scattered tiny calculi are present in the right kidney. Small right renal cysts are noted; no follow-up recommended. BLADDER: Partially distended. Left ureteral stent remains in the bladder. Small amount of gas is noted. GASTROINTESTINAL TRACT: No evidence of bowel obstruction or significant wall thickening. No free fluid or free air is seen. ABDOMINAL WALL: Small fat-containing inguinal hernias. LYMPH NODES: Normal. VASCULAR: Moderate atherosclerotic calcifications. Left external iliac artery stent is present, with patency not assessed on this noncontrast exam. PELVIC VISCERA: Prostate gland appears mildly prominent. OSSEOUS STRUCTURES: Multilevel endplate osteophytes noted in the spine. CT/CT abdomen pelvis wo IV con IMPRESSION: 1. Left ureteral stent in place. No significant left-sided hydronephrosis. Extensive calcification throughout the left renal calyces and pelvis, in keeping with sequelae of lithotripsy. 2. Cholelithiasis.
[2022-09-28 20:39] VITALS: BP 175/61; PULSE 88; RESP 18; TEMP 36.7; O2SAT 96; BMI 21.1
--- NOTE | 2022-09-28 20:39 | ED.MALEGU ---
HPI - Male Genitourinary General Chief complaint: Urogenital-Male <TERRY Giordano - Last Filed: 09/28/22 20:43> Stated complaint: had surgery yesterday/ pain w/urination <TERRY Giordano - Last Filed: 09/28/22 20:43> Time Seen by Provider: 09/29/22 01:59 <TERRY Giordano - Last Filed: 09/28/22 20:43> Source: patient <Olayinka Villa MD - Last Filed: 09/29/22 07:06> Mode of arrival: ambulatory <Olayinka Villa MD - Last Filed: 09/29/22 07:06> Limitations: no limitations <Olayinka Villa MD - Last Filed: 09/29/22 07:06> History of Present Illness HPI Narrative: Patient is status post lithotripsy and stent placement for staghorn calculus left kidney earlier yesterday started on Bactrim with complaining of increased pain whenever he urinates with chills no fever no nausea no vomiting no significant abdominal pain or flank pain <Olayinka Villa MD - Last Filed: 09/29/22 07:06> Related Data Home medications: Home Medications Medication Instructions Recorded Confirmed glyburide 5 mg tablet 5 mg PO BID 02/17/22 09/29/22 metformin 500 mg tablet 500 mg PO BID 02/17/22 09/29/22 aspirin 81 mg tablet,delayed 81 mg PO DAILY 09/24/22 09/29/22 release Previous Rx's Medication Instructions Recorded phenazopyridine 100 mg tablet 100 mg PO TID PRN Spasm 4 days #12 09/28/22 (Pyridium) tabs sulfamethoxazole 400 1 tab PO DAILY 5 days #5 tabs 09/28/22 mg-trimethoprim 80 mg tablet (Bactrim) tamsulosin 0.4 mg capsule 0.4 mg PO BEDTIME 14 days #14 caps 09/28/22 tramadol 50 mg tablet 50 mg PO Q6H PRN pain (scale score 09/28/22 1-3) #8 tabs <TERRY Giordano - Last Filed: 09/28/22 20:43> Allergies/Adverse reactions: Allergies Allergy/AdvReac Type Severity Reaction Status Date / Time No Known Allergies Allergy Verified 09/28/22 20:39 [No Known Allergies*] <TERRY Giordano - Last Filed: 09/28/22 20:43> Review of Systems Review of Systems: Yes all other systems are reviewed and are negative <Olayinka Villa MD - Last Filed: 09/29/22 07:06> [facility] Past Medical History Medical History: Medical History COPD (chronic obstructive pulmonary disease) Diabetes mellitus, type II Elevated cholesterol Enlarged prostate Hearing loss History of kidney stones HTN (hypertension) Peripheral arterial disease Renal cysts, acquired, bilateral Rotator cuff impingement syndrome TIA (transient ischemic attack) <TERRY Giordano - Last Filed: 09/28/22 20:43> Surgical History: Surgical History History of left-sided carotid endarterectomy History of surgery Hx of cataract surgery Hx of lithotripsy <TERRY Giordano - Last Filed: 09/28/22 20:43> Social History Social History: Social History Are you a primary personal care attendant to a significant other at home: No Do you presently have visiting nurse or other home services: No Patient Tobacco Use Status: Current everyday Tobacco user Tobacco use type: Cigarette Cigarettes Per Day: 30 Advance Directives: No Advance Directives Information Provided: Yes <TERRY Giordano - Last Filed: 09/28/22 20:43> Physical Exam Vital Signs: Vital Signs: Last Vital Signs Temp 98.4 F 09/29/22 06:37 Pulse 88 09/29/22 06:37 Resp 14 09/29/22 06:37 BP 183/65 H 09/29/22 06:37 Pulse Ox 97 09/29/22 06:37 O2 Del Method Room Air 09/29/22 06:37 BMI result Body Mass Index 21.1 <TERRY Giordano - Last Filed: 09/28/22 20:43> Vital Signs: Last Vital Signs Temp 98.4 F 09/29/22 06:37 Pulse 88 09/29/22 06:37 Resp 14 09/29/22 06:37 BP 183/65 H 09/29/22 06:37 Pulse Ox 97 09/29/22 06:37 O2 Del Method Room Air 09/29/22 06:37 BMI result Body Mass Index 21.1 <Olayinka Villa MD - Last Filed: 09/29/22 07:06> Appearance: Alert. Oriented X3. No acute distress. Eyes: No pallor or icterus ENT: Pharynx normal. Oral Mucosa moist Neck: Normal inspection. Neck supple. CVS: Normal heart rate and rhythm. Pulses normal. Respiratory: No respiratory distress. Equal air entry bilateral, no wheezing/rales/rhonchi Abdomen: Soft and nontender. Bowel sounds are present, no mass palpable, no CVA tenderness Skin: Skin warm and dry. Normal skin color. Normal skin turgor. Extremities: No lower extremity edema. No calf tenderness Neuro: Oriented X 3. No motor deficit. <Olayinka Villa MD - Last Filed: 09/29/22 07:06> Course Course Course Narrative: RME - 82 yo male with left staghorn calculus s/p lithotripsy and left ureteral stent placement today by Dr. Alcantar who presents to the ER for evaluation of severe left sided flank pain and hematuria after the procedure today. He states he can feel kidney stone moving down. He reports severe pain with urination. He was sent home with Bactrim Plan: question ureteral spasm from the stent? will need to d/w Dr. Alcantar. basic labs and UA ordered. <TERRY Giordano - Last Filed: 09/28/22 20:43> Medications Administered Generic Name Dose Route Start Last Admin Trade Name Freq PRN Reason Stop Dose Admin Lactated Ringer's 1,000 mls @ 100 mls/hr 09/29/22 05:15 09/29/22 05:28 Lr IVCONT 100 mls/hr .Q10H NAYAN Administration Discontinued Medications Generic Name Dose Route Start Last Admin Trade Name Freq PRN Reason Stop Dose Admin Sodium Chloride 1,000 mls @ 999 mls/hr 09/29/22 02:25 09/29/22 04:26 Ns IV 09/29/22 03:25 Infused .Q1H1M ONE Infusion Ceftriaxone Sodium 1 gm/ 50 mls @ 100 mls/hr 09/29/22 02:25 09/29/22 03:42 Sodium Chloride IV 09/29/22 02:54 Infused ONCE ONE Infusion Sodium Chloride 1,000 mls @ 999 mls/hr 09/29/22 03:23 09/29/22 03:42 Ns IV 09/29/22 04:23 999 mls/hr .Q1H1M ONE Administration Morphine Sulfate 4 mg 09/29/22 03:59 09/29/22 04:23 Morphine Sulfate 2 Mg/Ml Cartridge IVPUSH 09/29/22 04:00 4 mg ONCE ONE Administration Protocol Ondansetron HCl 4 mg 09/29/22 03:59 09/29/22 04:23 Ondansetron Hcl 4 Mg/2 Ml Vial IVPUSH 09/29/22 04:00 4 mg ONCE ONE Administration Sodium Zirconium Cyclosilicate 10 gm 09/29/22 03:25 09/29/22 03:42 Sodium Zirconium Cyclosilicate 10 Gm Powd.Pack PO 09/29/22 03:26 10 gm ONCE ONE Administration <TERRY Giordano - Last Filed: 09/28/22 20:43> Medications Administered Generic Name Dose Route Start Last Admin Trade Name Freq PRN Reason Stop Dose Admin Lactated Ringer's 1,000 mls @ 100 mls/hr 09/29/22 05:15 09/29/22 05:28 Lr IVCONT 100 mls/hr .Q10H NAYAN Administration Discontinued Medications Generic Name Dose Route Start Last Admin Trade Name Freq PRN Reason Stop Dose Admin Sodium Chloride 1,000 mls @ 999 mls/hr 09/29/22 02:25 09/29/22 04:26 Ns IV 09/29/22 03:25 Infused .Q1H1M ONE Infusion Ceftriaxone Sodium 1 gm/ 50 mls @ 100 mls/hr 09/29/22 02:25 09/29/22 03:42 Sodium Chloride IV 09/29/22 02:54 Infused ONCE ONE Infusion Sodium Chloride 1,000 mls @ 999 mls/hr 09/29/22 03:23 09/29/22 03:42 Ns IV 09/29/22 04:23 999 mls/hr .Q1H1M ONE Administration Morphine Sulfate 4 mg 09/29/22 03:59 09/29/22 04:23 Morphine Sulfate 2 Mg/Ml Cartridge IVPUSH 09/29/22 04:00 4 mg ONCE ONE Administration Protocol Ondansetron HCl 4 mg 09/29/22 03:59 09/29/22 04:23 Ondansetron Hcl 4 Mg/2 Ml Vial IVPUSH 09/29/22 04:00 4 mg ONCE ONE Administration Sodium Zirconium Cyclosilicate 10 gm 09/29/22 03:25 09/29/22 03:42 Sodium Zirconium Cyclosilicate 10 Gm Powd.Pack PO 09/29/22 03:26 10 gm ONCE ONE Administration <Olayinka Villa MD - Last Filed: 09/29/22 07:06> Medical Decision Making Medical Decision Making MDM Narrative: Patient with dysuria CT scan negative for any acute pathology stent in place with leukocytosis and lactic acidosis meeting criteria for sepsis give IV fluids more than 30 cc/kilogram and IV antibiotic Rocephin pending urine culture will admit patient for IV antibiotics and hydration <Olayinka Villa MD - Last Filed: 09/29/22 07:06> Consult Healthcare Provider Management of the patient was discussed with: Hospitalist <Olayinka Villa MD - Last Filed: 09/29/22 07:06> Lab Data MDM Lab Attestation statement: I reviewed the patient's lab results. <Olayinka Villa MD - Last Filed: 09/29/22 07:06> Result Diagrams: 09/28/22 20:53 09/28/22 20:53 <TERRY Giordano - Last Filed: 09/28/22 20:43> Labs: Lab Results 09/28/22 09/28/22 09/28/22 Range/Units 20:53 20:53 22:58 WBC 22.0 H (4.8-10.8) X10*3/uL RBC 4.63 (4.60-5.80) X10*6/uL Hgb 14.4 (14.0-18.0) g/dl Hct 44.4 (42.0-52.0) % MCV 95.9 (80.0-98.0) fL MCH 31.1 (27.0-33.0) pg MCHC 32.4 (31.0-36.0) g/dl RDW 13.9 (11.0-16.0) % Plt Count 289 (160-400) X10*3/uL MPV 10.0 (9.4-12.4) fL Immature Gran % (Auto) 0.6 H (0.0-0.4) % Neut % (Auto) 87.7 H (45-73) % Lymph % (Auto) 3.5 L (20-40) % Meeker % (Auto) 7.9 (2-11) % Eos % (Auto) 0.0 (0-4) % Baso % (Auto) 0.3 (0-2) % Lymph # (Auto) 0.8 L (1.2-4.9) X10*3/uL Meeker # (Auto) 1.7 H (0.1-1.2) X10*3/uL Eos # (Auto) 0.0 (0.0-0.4) X10*3/uL Baso # (Auto) 0.1 (0.0-0.2) X10*3/uL Abs Immat Gran (auto) 0.14 H (0.00-0.03) X10*3/uL Absolute Neuts (auto) 19.3 H (2.0-8.3) x10*3/uL Absolute Nucleated RBC 0.000 (0.0-0.012) X10*3/uL Nucleated RBC % (auto) 0.0 (0.0-0.2) /100WBC Smear Tech's Comments VERIFIED Sodium 136 (135-145) mmol/L Potassium 5.8 H (3.3-5.1) mmol/L Chloride 102 (96-108) mmol/L Carbon Dioxide 17 L (22-29) mmol/L Anion Gap 23 H (12-20) BUN 23 H (9-16) mg/dL Creatinine 1.13 (0.5-1.4) mg/dL Estim Creat Clear Calc 39.6 Estimated GFR > 60 Random Glucose 327 H (60-115) mg/dL Lactic Acid (0.5-2.0) mmol/L Lactic Acid F/U @ 2Hr (0.5-2.0) mmol/L Calcium 9.2 (8.4-10.2) mg/dL Urine Color BROWN Urine Appearance Turbid Urine pH 6.0 (5.0-9.0) Ur Specific Clement[place] 1.025 (1.005-1.025) Urine Protein 100 (2+) H (Neg-Trace) mg/dL Urine Glucose (UA) 500 H (Negative) mg/dL Urine Ketones 15 (Negative) mg/dL Urine Blood Large (3+) H (Negative) Urine Nitrite Positive H (Negative) Ur Leukocyte Esterase Negative (Negative) Urine RBC >20 H (0-2) /HPF Urine WBC 11-20 H (0-5) /HPF Ur Squamous Epith Cells 0-2 (0-2) /HPF Urine Bacteria 2+ (None Seen) Hyaline Casts 0-2 (0-2) /LPF 09/29/22 09/29/22 Range/Units 02:34 04:50 WBC (4.8-10.8) X10*3/uL RBC (4.60-5.80) X10*6/uL Hgb (14.0-18.0) g/dl Hct (42.0-52.0) % MCV (80.0-98.0) fL MCH (27.0-33.0) pg MCHC (31.0-36.0) g/dl RDW (11.0-16.0) % Plt Count (160-400) X10*3/uL MPV (9.4-12.4) fL Immature Gran % (Auto) (0.0-0.4) % Neut % (Auto) (45-73) % Lymph % (Auto) (20-40) % Meeker % (Auto) (2-11) % Eos % (Auto) (0-4) % Baso % (Auto) (0-2) % Lymph # (Auto) (1.2-4.9) X10*3/uL Meeker # (Auto) (0.1-1.2) X10*3/uL Eos # (Auto) (0.0-0.4) X10*3/uL Baso # (Auto) (0.0-0.2) X10*3/uL Abs Immat Gran (auto) (0.00-0.03) X10*3/uL Absolute Neuts (auto) (2.0-8.3) x10*3/uL Absolute Nucleated RBC (0.0-0.012) X10*3/uL Nucleated RBC % (auto) (0.0-0.2) /100WBC Smear Tech's Comments Sodium (135-145) mmol/L Potassium (3.3-5.1) mmol/L Chloride (96-108) mmol/L Carbon Dioxide (22-29) mmol/L Anion Gap (12-20) BUN (9-16) mg/dL Creatinine (0.5-1.4) mg/dL Estim Creat Clear Calc Estimated GFR Random Glucose (60-115) mg/dL Lactic Acid 4.7 H* (0.5-2.0) mmol/L Lactic Acid F/U @ 2Hr 3.9 H* (0.5-2.0) mmol/L Calcium (8.4-10.2) mg/dL Urine Color Urine Appearance Urine pH (5.0-9.0) Ur Specific Clementon (1.005-1.025) Urine Protein (Neg-Trace) mg/dL Urine Glucose (UA) (Negative) mg/dL Urine Ketones (Negative) mg/dL Urine Blood (Negative) Urine Nitrite (Negative) Ur Leukocyte Esterase (Negative) Urine RBC (0-2) /HPF Urine WBC (0-5) /HPF Ur Squamous Epith Cells (0-2) /HPF Urine Bacteria (None Seen) Hyaline Casts (0-2) /LPF <TERRY Giordano - Last Filed: 09/28/22 20:43> Lab Results 09/28/22 09/28/22 09/28/22 Range/Units 20:53 20:53 22:58 WBC 22.0 H (4.8-10.8) X10*3/uL RBC 4.63 (4.60-5.80) X10*6/uL Hgb 14.4 (14.0-18.0) g/dl Hct 44.4 (42.0-52.0) % MCV 95.9 (80.0-98.0) fL MCH 31.1 (27.0-33.0) pg MCHC 32.4 (31.0-36.0) g/dl RDW 13.9 (11.0-16.0) % Plt Count 289 (160-400) X10*3/uL MPV 10.0 (9.4-12.4) fL Immature Gran % (Auto) 0.6 H (0.0-0.4) % Neut % (Auto) 87.7 H (45-73) % Lymph % (Auto) 3.5 L (20-40) % Meeker % (Auto) 7.9 (2-11) % Eos % (Auto) 0.0 (0-4) % Baso % (Auto) 0.3 (0-2) % Lymph # (Auto) 0.8 L (1.2-4.9) X10*3/uL Meeker # (Auto) 1.7 H (0.1-1.2) X10*3/uL Eos # (Auto) 0.0 (0.0-0.4) X10*3/uL Baso # (Auto) 0.1 (0.0-0.2) X10*3/uL Abs Immat Gran (auto) 0.14 H (0.00-0.03) X10*3/uL Absolute Neuts (auto) 19.3 H (2.0-8.3) x10*3/uL Absolute Nucleated RBC 0.000 (0.0-0.012) X10*3/uL Nucleated RBC % (auto) 0.0 (0.0-0.2) /100WBC Smear Tech's Comments VERIFIED Sodium 136 (135-145) mmol/L Potassium 5.8 H (3.3-5.1) mmol/L Chloride 102 (96-108) mmol/L Carbon Dioxide 17 L (22-29) mmol/L Anion Gap 23 H (12-20) BUN 23 H (9-16) mg/dL Creatinine 1.13 (0.5-1.4) mg/dL Estim Creat Clear Calc 39.6 Estimated GFR > 60 Random Glucose 327 H (60-115) mg/dL Lactic Acid (0.5-2.0) mmol/L Lactic Acid F/U @ 2Hr (0.5-2.0) mmol/L Calcium 9.2 (8.4-10.2) mg/dL Urine Color BROWN Urine Appearance Turbid Urine pH 6.0 (5.0-9.0) Ur Specific Clementon 1.025 (1.005-1.025) Urine Protein 100 (2+) H (Neg-Trace) mg/dL Urine Glucose (UA) 500 H (Negative) mg/dL Urine Ketones 15 (Negative) mg/dL Urine Blood Large (3+) H (Negative) Urine Nitrite Positive H (Negative) Ur Leukocyte Esterase Negative (Negative) Urine RBC >20 H (0-2) /HPF Urine WBC 11-20 H (0-5) /HPF Ur Squamous Epith Cells 0-2 (0-2) /HPF Urine Bacteria 2+ (None Seen) Hyaline Casts 0-2 (0-2) /LPF 09/29/22 09/29/22 Range/Units 02:34 04:50 WBC (4.8-10.8) X10*3/uL RBC (4.60-5.80) X10*6/uL Hgb (14.0-18.0) g/dl Hct (42.0-52.0) % MCV (80.0-98.0) fL MCH (27.0-33.0) pg MCHC (31.0-36.0) g/dl RDW (11.0-16.0) % Plt Count (160-400) X10*3/uL MPV (9.4-12.4) fL Immature Gran % (Auto) (0.0-0.4) % Neut % (Auto) (45-73) % Lymph % (Auto) (20-40) % Meeker % (Auto) (2-11) % Eos % (Auto) (0-4) % Baso % (Auto) (0-2) % Lymph # (Auto) (1.2-4.9) X10*3/uL Meeker # (Auto) (0.1-1.2) X10*3/uL Eos # (Auto) (0.0-0.4) X10*3/uL Baso # (Auto) (0.0-0.2) X10*3/uL Abs Immat Gran (auto) (0.00-0.03) X10*3/uL Absolute Neuts (auto) (2.0-8.3) x10*3/uL Absolute Nucleated RBC (0.0-0.012) X10*3/uL Nucleated RBC % (auto) (0.0-0.2) /100WBC Smear Tech's Comments Sodium (135-145) mmol/L Potassium (3.3-5.1) mmol/L Chloride (96-108) mmol/L Carbon Dioxide (22-29) mmol/L Anion Gap (12-20) BUN (9-16) mg/dL Creatinine (0.5-1.4) mg/dL Estim Creat Clear Calc Estimated GFR Random Glucose (60-115) mg/dL Lactic Acid 4.7 H* (0.5-2.0) mmol/L Lactic Acid F/U @ 2Hr 3.9 H* (0.5-2.0) mmol/L Calcium (8.4-10.2) mg/dL Urine Color Urine Appearance Urine pH (5.0-9.0) Ur Specific Clementon (1.005-1.025) Urine Protein (Neg-Trace) mg/dL Urine Glucose (UA) (Negative) mg/dL Urine Ketones (Negative) mg/dL Urine Blood (Negative) Urine Nitrite (Negative) Ur Leukocyte Esterase (Negative) Urine RBC (0-2) /HPF Urine WBC (0-5) /HPF Ur Squamous Epith Cells (0-2) /HPF Urine Bacteria (None Seen) Hyaline Casts (0-2) /LPF <Olayinka Villa MD - Last Filed: 09/29/22 07:06> Radiology Impression Discussion of test interpretation with radiology: I have reviewed the radiologist's reading. <Olayinka Villa MD - Last Filed: 09/29/22 07:06> Radiologist Impression: CT/CT abdomen pelvis wo IV con IMPRESSION: 1.? Left ureteral stent in place. No significant left-sided hydronephrosis. Extensive calcification throughout the left renal calyces and pelvis, in keeping with sequelae of lithotripsy. 2.? Cholelithiasis. ? <Olayinka Villa MD - Last Filed: 09/29/22 07:06> Discharge Plan Discharge Clinical Impression: Acute UTI, Status post cystoscopy with ureteral stent placement, Staghorn calculus, Sepsis <TERRY Giordano - Last Filed: 09/28/22 20:43> Patient Disposition: Admitted As Inpatient <TERRY Giordaon - Last Filed: 09/28/22 20:43>
[2022-09-28 21:11] LABS: Basophils Absolute Auto 0.1 X10*3/uL (0.0-0.2); Basophils Percent Auto 0.3 % (0-2); Hematocrit 44.4 % (42.0-52.0); Hemoglobin 14.4 g/dl (14.0-18.0); Imm Gran Abs Auto 0.14 X10*3/uL (0.00-0.03); Imm Gran Pct Auto 0.6 % (0.0-0.4); Lymphocytes Absolute Auto 0.8 X10*3/uL (1.2-4.9); Lymphocytes Percent Auto 3.5 % (20-40); MANUAL DIFF FLAG SCAN; Mean Corpuscular HGB Conc 32.4 g/dl (31.0-36.0); Mean Corpuscular Hemoglobin 31.1 pg (27.0-33.0); Mean Corpuscular Volume 95.9 fL (80.0-98.0); Monocytes Absolute Auto 1.7 X10*3/uL (0.1-1.2); Monocytes Percent Auto 7.9 % (2-11); Neutrophils Absolute Auto 19.3 x10*3/uL (2.0-8.3); Neutrophils Percent Auto 87.7 % (45-73); Platelet Count 289 X10*3/uL (160-400); Red Blood Count 4.63 X10*6/uL (4.60-5.80); Red Cell Distribution Width 13.9 % (11.0-16.0); SCAN SMEAR FLAG 1
[2022-09-28 21:23] LABS: Anion Gap 23 (12-20); Blood Urea Nitrogen 23 mg/dL (9-16); Calcium 9.2 mg/dL (8.4-10.2); Carbon Dioxide 17 mmol/L (22-29); Chloride 102 mmol/L (96-108); Creatinine Clr Calc Pharmacy 39.6; Estimated Glomerular Filt Rate > 60; Glucose Random 327 mg/dL (60-115); Potassium 5.8 mmol/L (3.3-5.1); Sodium 136 mmol/L (135-145)
[2022-09-28 21:31] LABS: SLIDE REVIEW VERIFIED
[2022-09-28 23:12] LABS: Appearance Urine Turbid; Color Urine BROWN; Glucose Urine UA 500 mg/dL (Negative); Leukocyte Esterase Urine Negative (Negative); Nitrite Urine Positive (Negative); Specific Gravity - Urine 1.025 (1.005-1.025); UMIC TRIGGER UACC YES; Urine Blood Large (3+) (Negative); Urine Ketones 15 mg/dL (Negative); Urine Protein 100 (2+) mg/dL (Neg-Trace)
[2022-09-28 23:17] LABS: Bacteria Urine 2+ (None Seen); Hyaline Casts Urine 0-2 /LPF (0-2); RBC Urine >20 /HPF (0-2); Squamous Epithelial Cell Urine 0-2 /HPF (0-2); UACC Culture Trigger YES
[2022-09-29] VITALS (12 sets, daily range): BP systolic 156–198; BP diastolic 55–75; PULSE 76–91; RESP 14–22; TEMP 36.6–37.2; O2SAT 91–97; BMI 21.5
[2022-09-29] MEDS: 0.9 % Sodium Chloride 1,000 ML 999 ML IV ×2 (02:36→03:42)
[2022-09-29] MEDS: cefTRIAXone sodium 1 GM in 0.9 % Sodium Chloride 50 ML IV (02:57)
[2022-09-29 02:59] LABS: Lactic Acid 4.7 mmol/L (0.5-2.0)
--- NOTE | 2022-09-29 03:25 | ECG_ITS ---
Test Reason : HYPERKALEMIA Blood Pressure : / mmHG Vent. Rate : 097 BPM Atrial Rate : 097 BPM P-R Int : 136 ms QRS Dur : 090 ms QT Int : 384 ms P-R-T Axes : 049 -62 052 degrees QTc Int : 487 ms Poor data quality Normal sinus rhythm Left anterior fascicular block Nonspecific ST and T wave abnormality Prolonged QT Abnormal ECG When compared with ECG of 28-SEP-2022 09:47, Poor data quality in current ECG precludes serial comparison Referred By: Olayinka Villa Electronically Signed By:BISHNU DE LA CRUZ MD
[2022-09-29] MEDS: Sodium Zirconium Cyclosilicate 10 GM POWD.PACK PO (03:42)
[2022-09-29] MEDS: Morphine Sulfate 2 MG/ML CARTRIDGE 4 MG IVPUSH (04:23)
[2022-09-29] MEDS: ondansetron HCL 4 MG/2 ML VIAL IVPUSH (04:23)
[2022-09-29 04:37] LABS: Reflex Lactate? Lactic Acid Added
--- NOTE | 2022-09-29 04:57 | PC.NURSE ---
late entry- this rn assumed care of pt @ 0200 from waiting room . pt son at bedside. iv line placed by this rn. additional blood cultures and LA drawn and sent down to [place]. pt medicated according to jul.
[2022-09-29 05:11] LABS: ~Lactic Acid-LAB USE ONLY 3.9 mmol/L (0.5-2.0)
[2022-09-29] MEDS: Lactated Ringers 1,000 ML 100 ML IVCONT ×2 (05:28→15:31)
[2022-09-29 06:29] LABS: MANUAL DIFF FLAG NO
[2022-09-29 06:38] LABS: Basophils Percent Auto 0.2 % (0-2); Hematocrit 36.8 % (42.0-52.0); Hemoglobin 12.4 g/dl (14.0-18.0); Imm Gran Abs Auto 0.09 X10*3/uL (0.00-0.03); Imm Gran Pct Auto 0.5 % (0.0-0.4); Lymphocytes Percent Auto 5.4 % (20-40); Mean Corpuscular HGB Conc 33.7 g/dl (31.0-36.0); Mean Corpuscular Hemoglobin 31.2 pg (27.0-33.0); Mean Corpuscular Volume 92.7 fL (80.0-98.0); Monocytes Absolute Auto 1.4 X10*3/uL (0.1-1.2); Neutrophils Absolute Auto 15.1 x10*3/uL (2.0-8.3); Neutrophils Percent Auto 85.9 % (45-73); Platelet Count 233 X10*3/uL (160-400); Red Blood Count 3.97 X10*6/uL (4.60-5.80); Red Cell Distribution Width 13.7 % (11.0-16.0); White Blood Count 17.6 X10*3/uL (4.8-10.8)
--- NOTE | 2022-09-29 06:39 | P.HPHOSP_ITS ---
History of Present Illness Date of Service: 09/29/22 Chief Complaint: pain on urination 82-year-old male with past medical history of left staghorn calculus status post ureteral stent placed on 09/28 comes into the hospital several hours post procedure with complaints of severe pain on urination. Patient is also complaining of pain on the left upper quadrant and flank area radiating down to the groin. Patient reports that he had the stent placed for blocking stone, with no complications, but several hours later developed significant pain but he could not tolerate came to the hospital. He denies any fever, no chills, no shortness of breath chest pain, no nausea or vomiting, no lower extremity edema otherwise. On review of operative note from 5 1 patient appears to have a large staghorn calculus in the left kidney, status post cystoscopy, left dilation of the ureteric orifice , left ureteroscopy and left stent placement on arrival to the ED vitals stable with slightly Elevated blood pressure Labs are significant for WBC count of 22, potassium 5.8, lactic acid of 4.7 improved after IV fluids, UA positive for nitrites, WBC, and bacteria patient started on antibiotics and will be admitted for further management Review of Systems Review of Systems: Yes all other systems are reviewed and are negative [facility] Medical History COPD (chronic obstructive pulmonary disease) Diabetes mellitus, type II Elevated cholesterol Enlarged prostate Hearing loss History of kidney stones HTN (hypertension) Peripheral arterial disease Renal cysts, acquired, bilateral Rotator cuff impingement syndrome TIA (transient ischemic attack) Surgical History History of left-sided carotid endarterectomy History of surgery Hx of cataract surgery Hx of lithotripsy Social History Are you a primary personal care aide to a significant other at home: No Do you presently have visiting nurse or other home services: No Patient Tobacco Use Status: Current everyday Tobacco user Tobacco use type: Cigarette Cigarettes Per Day: 30 Advance Directives: No Advance Directives Information Provided: Yes Meds Allergies Allergy/AdvReac Type Severity Reaction Status Date / Time No Known Allergies Allergy Verified 09/28/22 20:39 [No Known Allergies*] Active Medications: Current Medications Acetaminophen (Acetaminophen 325 Mg Tablet) 650 mg PO Q6H PRN PRN Reason: Pain, Mild (Pain Scale 1-3) Docusate Sodium (Docusate Sodium 100 Mg Capsule) 100 mg PO DAILY PRN PRN Reason: Constipation Enoxaparin Sodium (Enoxaparin Sodium 40 Mg/0.4 Ml Syringe) 40 mg SUBCUT Q24H [facility] Lactated Ringer's (Lr) 1,000 mls @ 100 mls/hr IVCONT .Q10H [facility] Last Admin: 09/29/22 05:28 Dose: 100 mls/hr Ceftriaxone Sodium 1 gm/ (Sodium Chloride) 50 mls @ 100 mls/hr IV Q24H [facility] Ondansetron HCl (Ondansetron Hcl 4 Mg/2 Ml Vial) 4 mg IVPUSH Q8H PRN PRN Reason: Nausea and Vomiting Sodium Chloride (0.9 % Sodium Chloride Flush 3 Ml Syringe) 3 ml IVFLUSH QSHIFT [facility] Home Medications Medication Instructions Recorded Confirmed Last Taken Type glyburide 5 mg tablet 5 mg PO BID 02/17/22 09/29/22 Unknown History metformin 500 mg tablet 500 mg PO BID 02/17/22 09/29/22 Unknown History aspirin 81 mg tablet,delayed 81 mg PO DAILY 09/24/22 09/29/22 09/27/22 History release Physical Exam Vital Signs and Narrative: Vital Signs: Last Vital Signs Temp 98.4 F 09/29/22 06:37 Pulse 88 09/29/22 06:37 Resp 14 09/29/22 06:37 BP 183/65 H 09/29/22 06:37 Pulse Ox 97 09/29/22 06:37 O2 Del Method Room Air 09/29/22 06:37 BMI result Body Mass Index 21.1 Const: General: cooperative and no acute distress Orientation/cons ciousness: patient oriented x3 Eyes: General: appearance normal, both eyes and all related structures Resp: Effort & Inspection: normal respiratory effort Auscultation: clear to auscultation bilaterally Cardio: Rate: regular rate Rhythm: regular rhythm GI: Other: suprapubic tenderness Palpation (GI): Soft to palpation Auscultation: normal bowel sounds : Other: left CVA tenderness Skin: General skin exam: no rashes or lesions noted Neuro: General: patient oriented x3 Cognition (Neuro): normal cognition Extrem: General: Yes normal to inspection and Yes no pedal edema Results Labs 09/29/22 06:25 09/28/22 20:53 Labs: Laboratory Results - last 24 hr 09/28/22 09/28/22 09/28/22 20:53 20:53 22:58 MCV 95.9 MCH 31.1 MCHC 32.4 RDW 13.9 Plt Count 289 MPV 10.0 Immature Gran % (Auto) 0.6 H Neut % (Auto) 87.7 H Lymph % (Auto) 3.5 L [place] % (Auto) 7.9 Eos % (Auto) 0.0 Baso % (Auto) 0.3 Lymph # (Auto) 0.8 L [place] # (Auto) 1.7 H Eos # (Auto) 0.0 Baso # (Auto) 0.1 Abs Immat Gran (auto) 0.14 H Absolute Neuts (auto) 19.3 H Absolute Nucleated RBC 0.000 Nucleated RBC % (auto) 0.0 Smear Tech's Comments VERIFIED Anion Gap 23 H Estim Creat Clear Calc 39.6 Estimated GFR > 60 Random Glucose 327 H Lactic Acid Lactic Acid F/U @ 2Hr Calcium 9.2 Urine Color BROWN Urine Appearance Turbid Urine pH 6.0 Ur Specific [place] 1.025 Urine Protein 100 (2+) H Urine Glucose (UA) 500 H Urine Ketones 15 Urine Blood Large (3+) H Urine Nitrite Positive H Ur Leukocyte Esterase Negative Urine RBC >20 H Urine WBC 11-20 H Ur Squamous Epith Cells 0-2 Urine Bacteria 2+ Hyaline Casts 0-2 09/29/22 09/29/22 09/29/22 02:34 04:50 06:25 MCV 92.7 MCH 31.2 MCHC 33.7 RDW 13.7 Plt Count 233 MPV 10.0 Immature Gran % (Auto) 0.5 H Neut % (Auto) 85.9 H Lymph % (Auto) 5.4 L [place] % (Auto) 8.0 Eos % (Auto) 0.0 Baso % (Auto) 0.2 Lymph # (Auto) 1.0 L [place] # (Auto) 1.4 H Eos # (Auto) 0.0 Baso # (Auto) 0.0 Abs Immat Gran (auto) 0.09 H Absolute Neuts (auto) 15.1 H Absolute Nucleated RBC 0.000 Nucleated RBC % (auto) 0.0 Smear Tech's Comments Anion Gap Estim Creat Clear Calc Estimated GFR Random Glucose Lactic Acid 4.7 H* Lactic Acid F/U @ 2Hr 3.9 H* Calcium Urine Color Urine Appearance Urine pH Ur Specific [place] Urine Protein Urine Glucose (UA) Urine Ketones Urine Blood Urine Nitrite Ur Leukocyte Esterase Urine RBC Urine WBC Ur Squamous Epith Cells Urine Bacteria Hyaline Casts Imaging Radiologist's Impressions: Impressions Abdomen/Pelvis CT 09/29/22 02:20 IMPRESSION: 1. Left ureteral stent in place. No significant left-sided hydronephrosis. Extensive calcification throughout the left renal calyces and pelvis, in keeping with sequelae of lithotripsy. 2. Cholelithiasis. Assessment and Plan (1) Acute UTI: Status: Acute (2) Pyelonephritis: Status: Acute (3) Staghorn calculus: Status: Acute (4) Nephrolithiasis: Status: Acute (5) Status post cystoscopy with ureteral stent placement: Status: Acute Plan 82-year-old male with history of staghorn calculus presents to the hospital after stent placement with urinary symptoms found to have acute UTI # acute UTI /pyelo - status post stent placement - likely with pyelonephritis given CVA tenderness as well as positive UA and leukocytosis - will treat with IV antibiotics - follow cultures # nephrolithiasis/ staghorn calculus status post ureteral stent - will consult Urology - continue tamsulosin, # Lactic acidosis - likely secondary to acute infection, no hypoxia, no hypotension - will treat with IV fluids - trend # diabetes - hold oral antihyperglycemics - will add low-dose sliding scale insulin DVT prophylaxis: Lovenox given acute UTI requiring IV antibiotics patient will require minimum 2 night inpatient hospital stay for further management and monitoring Time Spent With Patient Time: Total time managing care of this patient today ____ minutes. Quality Stroke Does the patient have a stroke diagnosis?: No VTE Prior VTE?: No VTE Risk Level:: Medical - moderate - high VTE Device Contraindication: Treatment Not Indicated VTE Drug Contraindication: N/A - Med Ordered
[2022-09-29 06:53] LABS: Reflex Lactate? 2 Y
[2022-09-29 07:09] LABS: Glucose, Whole Blood 226 mg/dL (60-115)
--- NOTE | 2022-09-29 07:17 | PC.NURSE ---
late entry- med rec performed dr rodriguez made aware
[2022-09-29] MEDS: Enoxaparin Sodium 40 MG/0.4 ML SYRINGE SUBCUT (07:18)
[2022-09-29] MEDS: Tamsulosin HCL 0.4 MG CAPSULE PO ×2 (07:18→20:36)
[2022-09-29] MEDS: Insulin Lispro 100 UNIT/ML 3 ML VIAL SUBCUT ×3 (07:19→20:36)
[2022-09-29 07:27] LABS: Anion Gap 11 (12-20); Blood Urea Nitrogen 22 mg/dL (9-16); Creatinine Clr Calc Pharmacy 48.1; Estimated Glomerular Filt Rate > 60; Glucose Random 227 mg/dL (60-115)
--- NOTE | 2022-09-29 07:27 | PC.NURSE ---
Pt on stretcher, airway open and patent, no difficulty/labored breathing. Pt a&ox4, skin normal for ethnicity, warm, and dry. Lung sounds reveal wheezing in both right and left lower lungs. Heart sounds normal. Bowel sounds present all schultz. No edema noted. Pt has 300ml urine in urinal at bedside, urine bright red. Pt complaining of left sided flank pain rated 4/10.
[2022-09-29] MEDS: 0.9 % Sodium Chloride Flush 3 ML SYRINGE IVFLUSH ×3 (07:31→22:53)
[2022-09-29 07:41] LABS: Calcium 7.8 mg/dL (8.4-10.2); Carbon Dioxide 21 mmol/L (22-29); Chloride 109 mmol/L (96-108); Potassium 4.7 mmol/L (3.3-5.1); Sodium 137 mmol/L (135-145)
[2022-09-29 08:01] LABS: Lactic Acid 2.3 mmol/L (0.5-2.0)
[2022-09-29] MEDS: Aspirin Enteric Coated 81 MG TABLET.DR PO (08:53)
[2022-09-29 09:45] LABS: Reflex Lactate? Lactic Acid Added
[2022-09-29 10:20] LABS: ~Lactic Acid-LAB USE ONLY 2.3 mmol/L (0.5-2.0)
--- NOTE | 2022-09-29 11:37 | HO.PM.IMPN ---
Subjective Subjective Date of Service: 09/29/22 Review of Systems Follow up UTI/Pyelo still with LLQ pain no nausea or vomiting Physical Exam Vital Signs: Vital Signs: Last Vital Signs Temp 98.4 F 09/29/22 10:17 Pulse 85 09/29/22 10:17 Resp 14 09/29/22 10:17 BP 156/55 H 09/29/22 10:17 Pulse Ox 93 09/29/22 10:17 O2 Del Method Room Air 09/29/22 10:17 BMI result Body Mass Index 21.1 Appearing in no acute distress lung sounds are clear to auscultation heart regular rate rhythm, clear S1, S2 positive bowel sounds, abdomen is soft, nontender neuro patient is alert x3, no focal deficits Objective Data Active Medications Acetaminophen (Acetaminophen 325 Mg Tablet) 650 mg PO Q6H PRN PRN Reason: Pain, Mild (Pain Scale 1-3) Aspirin (Aspirin Enteric Coated 81 Mg Tablet.Dr) 81 mg PO DAILY [facility] Last Admin: 09/29/22 08:53 Dose: 81 mg Documented By: ALIRIO Docusate Sodium (Docusate Sodium 100 Mg Capsule) 100 mg PO DAILY PRN PRN Reason: Constipation Enoxaparin Sodium (Enoxaparin Sodium 40 Mg/0.4 Ml Syringe) 40 mg SUBCUT Q24H [facility] Last Admin: 09/29/22 07:18 Dose: 40 mg Documented By: ALIRIO Glucose (Glucose Gel 15 Gm Gel..Gram.) 15 gm PO Q15M PRN; Protocol PRN Reason: per Hypoglycemia Standing Ord. Lactated Ringer's (Lr) 1,000 mls @ 100 mls/hr IVCONT .Q10H [facility] Last Admin: 09/29/22 05:28 Dose: 100 mls/hr Documented By: ROBBIE Ceftriaxone Sodium 1 gm/ (Sodium Chloride) 50 mls @ 100 mls/hr IV Q24H [facility] Dextrose (D10) 250 mls @ 750 mls/hr IV Q15M PRN; Protocol PRN Reason: per Hypoglycemia Standing Ord. Insulin Human Lispro (Insulin Lispro 100 Unit/Ml 3 Ml Vial) 0 unit SUBCUT QIDACHS [facility]; Protocol Last Admin: 09/29/22 07:19 Dose: 4 unit Documented By: ALIRIO Ondansetron HCl (Ondansetron Hcl 4 Mg/2 Ml Vial) 4 mg IVPUSH Q8H PRN PRN Reason: Nausea and Vomiting Phenazopyridine HCl (Phenazopyridine Hcl 100 Mg Tablet) 100 mg PO TID PRN PRN Reason: Spasm Sodium Chloride (0.9 % Sodium Chloride Flush 3 Ml Syringe) 3 ml IVFLUSH QSHIFT [facility] Last Admin: 09/29/22 07:31 Dose: 3 ml Documented By: ALIRIO Tamsulosin HCl (Tamsulosin Hcl 0.4 Mg Capsule) 0.4 mg PO BEDTIME [facility] Last Admin: 09/29/22 07:18 Dose: 0.4 mg Documented By: ALIRIO Tramadol HCl (Tramadol Hcl 50 Mg Tablet) 50 mg PO Q6H PRN PRN Reason: pain (scale score 1-3) Labs 09/29/22 06:25 09/29/22 06:25 Labs: Laboratory Results - last 24 hr 09/28/22 09/28/22 09/28/22 20:53 20:53 22:58 MCV 95.9 MCH 31.1 MCHC 32.4 RDW 13.9 Plt Count 289 MPV 10.0 Immature Gran % (Auto) 0.6 H Neut % (Auto) 87.7 H Lymph % (Auto) 3.5 L [place] % (Auto) 7.9 Eos % (Auto) 0.0 Baso % (Auto) 0.3 Lymph # (Auto) 0.8 L [place] # (Auto) 1.7 H Eos # (Auto) 0.0 Baso # (Auto) 0.1 Abs Immat Gran (auto) 0.14 H Absolute Neuts (auto) 19.3 H Absolute Nucleated RBC 0.000 Nucleated RBC % (auto) 0.0 Smear Tech's Comments VERIFIED Anion Gap 23 H Estim Creat Clear Calc 39.6 Estimated GFR > 60 POC Glucose Random Glucose 327 H Lactic Acid Lactic Acid F/U @ 2Hr Lactic Acid F/U @ 4Hr Calcium 9.2 Urine Color BROWN Urine Appearance Turbid Urine pH 6.0 Ur Specific [place] 1.025 Urine Protein 100 (2+) H Urine Glucose (UA) 500 H Urine Ketones 15 Urine Blood Large (3+) H Urine Nitrite Positive H Ur Leukocyte Esterase Negative Urine RBC >20 H Urine WBC 11-20 H Ur Squamous Epith Cells 0-2 Urine Bacteria 2+ Hyaline Casts 0-2 09/29/22 09/29/22 09/29/22 02:34 04:50 06:25 MCV 92.7 MCH 31.2 MCHC 33.7 RDW 13.7 Plt Count 233 MPV 10.0 Immature Gran % (Auto) 0.5 H Neut % (Auto) 85.9 H Lymph % (Auto) 5.4 L [place] % (Auto) 8.0 Eos % (Auto) 0.0 Baso % (Auto) 0.2 Lymph # (Auto) 1.0 L [place] # (Auto) 1.4 H Eos # (Auto) 0.0 Baso # (Auto) 0.0 Abs Immat Gran (auto) 0.09 H Absolute Neuts (auto) 15.1 H Absolute Nucleated RBC 0.000 Nucleated RBC % (auto) 0.0 Smear Tech's Comments Anion Gap Estim Creat Clear Calc Estimated GFR POC Glucose Random Glucose Lactic Acid 4.7 H* Lactic Acid F/U @ 2Hr 3.9 H* Lactic Acid F/U @ 4Hr Calcium Urine Color Urine Appearance Urine pH Ur Specific [place] Urine Protein Urine Glucose (UA) Urine Ketones Urine Blood Urine Nitrite Ur Leukocyte Esterase Urine RBC Urine WBC Ur Squamous Epith Cells Urine Bacteria Hyaline Casts 09/29/22 09/29/22 09/29/22 06:25 07:06 07:13 MCV MCH MCHC RDW Plt Count MPV Immature Gran % (Auto) Neut % (Auto) Lymph % (Auto) [place] % (Auto) Eos % (Auto) Baso % (Auto) Lymph # (Auto) [place] # (Auto) Eos # (Auto) Baso # (Auto) Abs Immat Gran (auto) Absolute Neuts (auto) Absolute Nucleated RBC Nucleated RBC % (auto) Smear Tech's Comments Anion Gap 11 L Estim Creat Clear Calc 48.1 Estimated GFR > 60 POC Glucose 226 H Random Glucose 227 H Lactic Acid 2.3 H* Lactic Acid F/U @ 2Hr Lactic Acid F/U @ 4Hr Calcium 7.8 L D Urine Color Urine Appearance Urine pH Ur Specific [place] Urine Protein Urine Glucose (UA) Urine Ketones Urine Blood Urine Nitrite Ur Leukocyte Esterase Urine RBC Urine WBC Ur Squamous Epith Cells Urine Bacteria Hyaline Casts 09/29/22 09/29/22 07:13 09:52 MCV MCH MCHC RDW Plt Count MPV Immature Gran % (Auto) Neut % (Auto) Lymph % (Auto) [place] % (Auto) Eos % (Auto) Baso % (Auto) Lymph # (Auto) [place] # (Auto) Eos # (Auto) Baso # (Auto) Abs Immat Gran (auto) Absolute Neuts (auto) Absolute Nucleated RBC Nucleated RBC % (auto) Smear Tech's Comments Anion Gap Estim Creat Clear Calc Estimated GFR POC Glucose Random Glucose Lactic Acid Lactic Acid F/U @ 2Hr 2.3 H* Lactic Acid F/U @ 4Hr Cancelled Calcium Urine Color Urine Appearance Urine pH Ur Specific [place] Urine Protein Urine Glucose (UA) Urine Ketones Urine Blood Urine Nitrite Ur Leukocyte Esterase Urine RBC Urine WBC Ur Squamous Epith Cells Urine Bacteria Hyaline Casts Assessment and Plan (1) Status post cystoscopy with ureteral stent placement: Status: Acute Plan 82-year-old male with history of staghorn calculus presents to the hospital after stent placement with urinary symptoms found to have acute UTI Acute UTI /pyelo status post stent placement 09/28/22 likely with pyelonephritis given CVA tenderness? as well as positive UA?and leukocytosis continue Rocephin follow cultures nephrolithiasis/ staghorn calculus status post ureteral stent continue tamsulosin urology rec treating pain from stent spasm Lactic acidosis likely secondary to acute infection,? no hypoxia, no hypotension will treat with IV fluids trend diabetes hold oral antihyperglycemics will add low-dose sliding scale insulin DVT prophylaxis:? Lovenox Attending Dr. Almazan continued hospital stay for further management and monitoring Time Spent With Patient Time: Total time managing care of this patient today ____ minutes. Quality Stroke Does the patient have a stroke diagnosis?: No VTE Prior VTE?: No VTE Risk Level:: Medical - moderate - high VTE Device Contraindication: Treatment Not Indicated VTE Drug Contraindication: N/A - Med Ordered
[2022-09-29 11:59] LABS: Reflex Lactate? 2 Y
[2022-09-29] MEDS: traMADoL HCL 50 MG TABLET PO (12:06)
[2022-09-29 12:55] LABS: ~Lactic Acid-LAB USE ONLY 2.2 mmol/L (0.5-2.0)
[2022-09-29 13:07] LABS: Glucose, Whole Blood 197 mg/dL (60-115)
--- NOTE | 2022-09-29 15:36 | PC.NURSE ---
pt is resting comfortably on stretcher at this time, denies pain, new bag of fluids hung. Pts family member states they would like to have Dr. Flynn come speak with the patient. This RN explained to the patient and family member that the current plan is for admission and then Dr. Flynn will see the patient. Pts blood pressure is also high, kedar texted the hospitalist but no answer at this time
[2022-09-29] MEDS: Morphine Sulfate 2 MG/ML CARTRIDGE IVPUSH (16:18)
--- NOTE | 2022-09-29 16:19 | PC.NURSE ---
assumed care of patient. given PRN morphine for 9/10 pain. patient is able to make needs known. call rios placed within reach
[2022-09-29] MEDS: Ketorolac Tromethamine 15 MG/ML VIAL IVPUSH ×2 (17:34→22:53)
--- NOTE | 2022-09-29 18:22 | PC.NURSE ---
nurse to nurse report called to floor nurse at [phone]
--- NOTE | 2022-09-29 18:47 | PC.NURSE ---
Arrived at the unit at 6;40pm. A&O x 3, no resp distress, lungs clear, dim. No chest pain. No c/o N/V. C/O LLQ Pain, Hematuria. States he has no wounds on his body. hand off to night nurse for admin.
[2022-09-29 20:22] LABS: Glucose, Whole Blood 248 mg/dL (60-115)
[2022-09-30] MEDS: Lactated Ringers 1,000 ML 100 ML IVCONT ×3 (01:43→21:23)
[2022-09-30 03:35] VITALS: BP 170/62; PULSE 77; RESP 18; TEMP 36.6; O2SAT 94
[2022-09-30] MEDS: Ketorolac Tromethamine 15 MG/ML VIAL IVPUSH ×4 (05:20→22:07)
[2022-09-30] MEDS: cefTRIAXone sodium 1 GM in 0.9 % Sodium Chloride 50 ML IV (05:21)
[2022-09-30] MEDS: Enoxaparin Sodium 40 MG/0.4 ML SYRINGE SUBCUT (05:21)
[2022-09-30 07:32] VITALS: BP 177/74; PULSE 78; RESP 18; TEMP 36.9; O2SAT 95
[2022-09-30 07:34] LABS: Glucose, Whole Blood 191 mg/dL (60-115)
[2022-09-30] MEDS: Insulin Lispro 100 UNIT/ML 3 ML VIAL SUBCUT ×3 (08:04→21:22)
[2022-09-30] MEDS: Aspirin Enteric Coated 81 MG TABLET.DR PO (08:04)
--- NOTE | 2022-09-30 09:06 | HO.PM.IMPN ---
Subjective Subjective Date of Service: 09/30/22 Review of Systems Follow up UTI/Pyelo still with LLQ pain hematuria no nausea or vomiting Physical Exam Vital Signs: Vital Signs: Last Vital Signs Temp 98.4 F 09/30/22 07:32 Pulse 78 09/30/22 07:32 Resp 18 09/30/22 07:32 BP 177/74 H 09/30/22 07:32 Pulse Ox 95 09/30/22 07:32 O2 Del Method Room Air 09/30/22 07:32 BMI result Body Mass Index 21.5 Appearing in no acute distress lung sounds are clear to auscultation heart regular rate rhythm, clear S1, S2 positive bowel sounds, abdomen is soft, nontender neuro patient is alert x3, no focal deficits Objective Data Active Medications Acetaminophen (Acetaminophen 325 Mg Tablet) 650 mg PO Q6H PRN PRN Reason: Pain, Mild (Pain Scale 1-3) Aspirin (Aspirin Enteric Coated 81 Mg Tablet.) 81 mg PO DAILY [facility] Last Admin: 09/30/22 08:04 Dose: 81 mg Documented By: THOMAS Docusate Sodium (Docusate Sodium 100 Mg Capsule) 100 mg PO DAILY PRN PRN Reason: Constipation Enoxaparin Sodium (Enoxaparin Sodium 40 Mg/0.4 Ml Syringe) 40 mg SUBCUT Q24H [facility] Last Admin: 09/30/22 05:21 Dose: 40 mg Documented By: KYRA Glucose (Glucose Gel 15 Gm Gel..Gram.) 15 gm PO Q15M PRN; Protocol PRN Reason: per Hypoglycemia Standing Ord. Lactated Ringer's (Lr) 1,000 mls @ 100 mls/hr IVCONT .Q10H [facility] Last Admin: 09/30/22 01:43 Dose: 100 mls/hr Documented By: KYRA Ceftriaxone Sodium 1 gm/ (Sodium Chloride) 50 mls @ 100 mls/hr IV Q24H [facility] Last Infusion: 09/30/22 06:00 Dose: 0 mls/hr Documented By: KYRA Dextrose (D10) 250 mls @ 750 mls/hr IV Q15M PRN; Protocol PRN Reason: per Hypoglycemia Standing Ord. Insulin Human Lispro (Insulin Lispro 100 Unit/Ml 3 Ml Vial) 0 unit SUBCUT QIDACHS [facility]; Protocol Last Admin: 09/30/22 08:04 Dose: 2 unit Documented By: THOMAS Ketorolac Tromethamine (Ketorolac Tromethamine 15 Mg/Ml Vial) 15 mg IVPUSH Q6H [facility] Last Admin: 09/30/22 05:20 Dose: 15 mg Documented By: KYRA Morphine Sulfate (Morphine Sulfate 2 Mg/Ml Cartridge) 2 mg IVPUSH Q4H PRN; Protocol PRN Reason: Pain, Mild (Pain Scale 1-3) Last Admin: 09/29/22 16:18 Dose: 2 mg Documented By: JASPER Ondansetron HCl (Ondansetron Hcl 4 Mg/2 Ml Vial) 4 mg IVPUSH Q8H PRN PRN Reason: Nausea and Vomiting Phenazopyridine HCl (Phenazopyridine Hcl 100 Mg Tablet) 100 mg PO TID PRN PRN Reason: Spasm Sodium Chloride (0.9 % Sodium Chloride Flush 3 Ml Syringe) 3 ml IVFLUSH QSHIFT [facility] Last Admin: 09/30/22 07:39 Dose: Not Given Documented By: THOMAS Non-Admin Reason: IV Running Tamsulosin HCl (Tamsulosin Hcl 0.4 Mg Capsule) 0.4 mg PO BEDTIME [facility] Last Admin: 09/29/22 20:36 Dose: 0.4 mg Documented By: KYRA Tramadol HCl (Tramadol Hcl 50 Mg Tablet) 50 mg PO Q6H PRN PRN Reason: pain (scale score 1-3) Last Admin: 09/29/22 12:06 Dose: 50 mg Documented By: EMILIA Labs 09/29/22 06:25 09/29/22 06:25 Labs: Laboratory Results - last 24 hr 09/29/22 09/29/22 09/29/22 07:13 09:52 12:16 POC Glucose Lactic Acid F/U @ 2Hr 2.3 H* Lactic Acid F/U @ 4Hr Cancelled 2.2 H* 09/29/22 09/29/22 09/30/22 13:04 20:14 07:29 POC Glucose 197 H 248 H 191 H Lactic Acid F/U @ 2Hr Lactic Acid F/U @ 4Hr Microbiology Microbiology Results: Microbiology 09/29/22 04:50 Urine Culture - Final Urine clean catch - Urine porter top 09/29/22 02:34 Blood Culture - Preliminary Blood - Venous No growth after 24 hours. 09/29/22 02:34 Blood Culture - Preliminary Blood - Venous No growth after 24 hours. Assessment and Plan (1) Status post cystoscopy with ureteral stent placement: Status: Acute Plan 82-year-old male with history of staghorn calculus presents to the hospital after stent placement with urinary symptoms found to have acute UTI Acute UTI /pyelo Left flank pain with urination, urology aware status post stent placement 09/28/22 pyelonephritis given CVA tenderness? as well as positive UA?and leukocytosis continue Rocephin follow cultures hematuria s/p stent placement HH stable nephrolithiasis/ staghorn calculus status post ureteral stent continue tamsulosin urology rec treating pain from stent spasm Lactic acidosis secondary to acute infection,? no hypoxia, no hypotension IV fluids diabetes ss, ada diet DVT prophylaxis:? SCD boots due to hematuria Attending Dr. Almazan continued hospital stay for further management and monitoring of hematuria and flank pain Time Spent With Patient Time: Total time managing care of this patient today ____ minutes. Quality Stroke Does the patient have a stroke diagnosis?: No VTE Prior VTE?: No VTE Risk Level:: Medical - moderate - high VTE Device Contraindication: Treatment Not Indicated VTE Drug Contraindication: N/A - Med Ordered
--- NOTE | 2022-09-30 10:45 | P.CNUR_ITS ---
History of Present Illness Consult details Consult date: 09/30/22 Narrative: Consulting complaint left ureteric spasm 82-year-old male Underwent ureteroscopy with laser lithotripsy on Thursday 09/28 Re-presented through emergency room for severe pain on the left side Pain with urination Has been managed with pain medications and this is slowly resolving pain Has indwelling stent Notable labs include WBC 22, lactate 4.7 which improved after hydration Bacteria and nitrites within urine likely from stone debris Has been treated with antibiotics Would suggest transition to oral antibiotics and discharge when pain under control Review of Systems Constitutional: Constitutional: Denies chills and Denies fever(s) Cardiovascular: Cardiovascular: Reports no additional cardiovascular complaints and Denies syncope Respiratory: Respiratory: Denies cough Gastrointestinal: Gastrointestinal: Denies abdominal pain and Denies heartburn Genitourinary: Genitourinary: Reports as per HPI and Denies change in libido Neurologic: Denies syncope Psychiatric: Psychiatric: Denies change in libido Endocrine: Endocrine: Denies change in libido [facility] Past Medical History Medical History COPD (chronic obstructive pulmonary disease) Diabetes mellitus, type II Elevated cholesterol Enlarged prostate Hearing loss History of kidney stones HTN (hypertension) Peripheral arterial disease Renal cysts, acquired, bilateral Rotator cuff impingement syndrome TIA (transient ischemic attack) Surgical History Surgical History History of left-sided carotid endarterectomy History of surgery Hx of cataract surgery Hx of lithotripsy Social History Social History Household Members: None Household Members Other:: 0 Housing: House Are you a primary vp care management to a significant other at home: No Do you presently have visiting nurse or other home services: Yes Patient Tobacco Use Status: Current everyday Tobacco user Tobacco use type: Cigarette Cigarette Packs Per Day: 1 Cigarettes Per Day: 20.0 Years Smoked: 60 e-Cigarette/Vaping Use: Never Used Meds Allergies Allergy/AdvReac Type Severity Reaction Status Date / Time No Known Allergies Allergy Verified 09/28/22 20:39 [No Known Allergies*] Active Medications: Current Medications Acetaminophen (Acetaminophen 325 Mg Tablet) 650 mg PO Q6H PRN PRN Reason: Pain, Mild (Pain Scale 1-3) Aspirin (Aspirin Enteric Coated 81 Mg Tablet.Dr) 81 mg PO DAILY [facility] Last Admin: 09/30/22 08:04 Dose: 81 mg Docusate Sodium (Docusate Sodium 100 Mg Capsule) 100 mg PO DAILY PRN PRN Reason: Constipation Glucose (Glucose Gel 15 Gm Gel..Gram.) 15 gm PO Q15M PRN; Protocol PRN Reason: per Hypoglycemia Standing Ord. Lactated Ringer's (Lr) 1,000 mls @ 100 mls/hr IVCONT .Q10H [facility] Last Admin: 09/30/22 01:43 Dose: 100 mls/hr Ceftriaxone Sodium 1 gm/ (Sodium Chloride) 50 mls @ 100 mls/hr IV Q24H [facility] Last Infusion: 09/30/22 06:00 Dose: Infused Dextrose (D10) 250 mls @ 750 mls/hr IV Q15M PRN; Protocol PRN Reason: per Hypoglycemia Standing Ord. Insulin Human Lispro (Insulin Lispro 100 Unit/Ml 3 Ml Vial) 0 unit SUBCUT QIDACHS [facility]; Protocol Last Admin: 09/30/22 08:04 Dose: 2 unit Ketorolac Tromethamine (Ketorolac Tromethamine 15 Mg/Ml Vial) 15 mg IVPUSH Q6H [facility] Last Admin: 09/30/22 05:20 Dose: 15 mg Morphine Sulfate (Morphine Sulfate 2 Mg/Ml Cartridge) 2 mg IVPUSH Q4H PRN; Protocol PRN Reason: Pain, Mild (Pain Scale 1-3) Last Admin: 09/29/22 16:18 Dose: 2 mg Ondansetron HCl (Ondansetron Hcl 4 Mg/2 Ml Vial) 4 mg IVPUSH Q8H PRN PRN Reason: Nausea and Vomiting Phenazopyridine HCl (Phenazopyridine Hcl 100 Mg Tablet) 100 mg PO TID PRN PRN Reason: Spasm Sodium Chloride (0.9 % Sodium Chloride Flush 3 Ml Syringe) [facility] Admin: 09/30/22 07:39 Dose: Not Given Tamsulosin HCl (Tamsulosin Hcl 0.4 Mg Capsule) 0.4 mg PO BEDTIME [facility] Last Admin: 09/29/22 20:36 Dose: 0.4 mg Tramadol HCl (Tramadol Hcl 50 Mg Tablet) 50 mg PO Q6H PRN PRN Reason: pain (scale score 1-3) Last Admin: 09/29/22 12:06 Dose: 50 mg Home Medications Medication Instructions Recorded Confirmed Last Taken Type glyburide 5 mg tablet 5 mg PO BID 02/17/22 09/29/22 Unknown History metformin 500 mg tablet 500 mg PO BID 02/17/22 09/29/22 Unknown History aspirin 81 mg tablet,delayed 81 mg PO DAILY 09/24/22 09/29/22 09/27/22 History release Physical Exam Vital Signs: Vital Signs: Last Vital Signs Temp 98.4 F 09/30/22 07:32 Pulse 78 09/30/22 07:32 Resp 18 09/30/22 07:32 BP 177/74 H 09/30/22 07:32 Pulse Ox 95 09/30/22 07:32 O2 Del Method Room Air 09/30/22 07:32 BMI result Body Mass Index 21.5 Const: General: cooperative, healthy appearing, comfortable and no acute distress Orientation/consciousness: patient oriented x3 HEENT: Face and sinus: Yes normal facial exam Mouth: moist mucous membranes Neck: Neck: Yes normal visual inspection, Yes full ROM and Yes trachea midline Chest: Chest palpation & inspection: normal inspection of the chest Resp: Effort & Inspection: normal respiratory effort, able to speak in complete sentences and no respiratory distress GI: Inspection: Yes normal to inspection Back/Spine/Pelvis: Cervical Spine: normal cervical lordosis Thoracic/Lumbar Spine: thoracic and lumbar spine normal to inspection Skin: General skin exam: no rashes or lesions noted Neuro: General: patient oriented x3, gait normal, tone normal and moves all extremities Extrem: General: Yes normal to inspection and Yes capillary refill normal Results Labs 09/29/22 06:25 09/29/22 06:25 Labs: Abnormal lab results 09/29/22 09/29/22 09/29/22 Range/Units 12:16 13:04 20:14 POC Glucose 197 H 248 H (60-115) mg/dL Lactic Acid F/U @ 4Hr 2.2 H* (0.5-2.0) mmol/L 09/30/22 Range/Units 07:29 POC Glucose 191 H (60-115) mg/dL Lactic Acid F/U @ 4Hr (0.5-2.0) mmol/L Urine 09/28/22 Range/Units 22:58 Urine Color BROWN Urine Appearance Turbid Urine pH 6.0 (5.0-9.0) Ur Specific [place] 1.025 (1.005-1.025) Urine Protein 100 (2+) H (Neg-Trace) mg/dL Urine Glucose (UA) 500 H (Negative) mg/dL All other labs normal. Assessment and Plan (1) Nephrolithiasis: Status: Acute (2) Status post cystoscopy with ureteral stent placement: Status: Acute Plan Antibiotics for pain management Time Spent With Patient Time: Total time managing care of this patient today ____ minutes. Procedures Date of Service Date of Service: 09/30/22
--- NOTE | 2022-09-30 10:57 | MHC.CM.PN ---
PATIENT LIVES ALONE FULLY INDEPENDENT NO DME OR VNA SERVICES HCP IS SON, ILEANA, AND COPY IS REQUESTED. HE HOPES TO DC HOME WITH NO NEED FOR SERVICES PATIENT STILL WITH PAIN AND SPASMS. IMM 5 IN CHART
[2022-09-30 11:26] LABS: Glucose, Whole Blood 258 mg/dL (60-115)
[2022-09-30 15:21] VITALS: BP 160/62; PULSE 79; RESP 17; TEMP 36.9; O2SAT 93
[2022-09-30] MEDS: ondansetron HCL 4 MG/2 ML VIAL IVPUSH (16:07)
[2022-09-30 16:19] LABS: Glucose, Whole Blood 102 mg/dL (60-115)
--- NOTE | 2022-09-30 17:44 | P.CDIM_ITS ---
PROVIDER RESPONSE TEXT: To clarify, the appropriate diagnosis supported by the clinical indicators: Other (explain): acute infection QUERY TEXT: PHYSICIAN'S DOCUMENTATION REQUEST Date of Query: 09/30/2022 08:40 AM EDT Patient Name: Antolin Perdomo Admit Date: 09/29/2022 Dear Angela Martínez, A review of the medical record indicates additional documentation may be needed. Please review below and update the documentation accordingly. Clinical Indicators: PN: Assessment and plan - Lactic acidosis, likely secondary to acute infection. Will treat with IV fluids. Clarify which of the following accurately represents the acuity of the metabolic acidosis: Acute metabolic acidosis Other Unable to determine Other (explain) Clinically unable to determine (explain) Thank you, Marina Mccoy, CCS, CDIS Use of terms such as suspected, likely, concern for, or probable (associated with a specific diagnosi s that is being evaluated, monitored, or treated as if it exists) are acceptable and can be coded in the inpatient se tting, when documented at the time of discharge. Please use your independent medical judgment in providing your response. THIS QUERY IS PART OF THE PERMANENT MEDICAL RECORD
--- NOTE | 2022-09-30 17:47 | P.CDIM_ITS ---
PROVIDER RESPONSE TEXT: To clarify, the appropriate diagnosis supported by the clinical indicators: Hyperkalemia present on arrival, resolved QUERY TEXT: PHYSICIAN'S DOCUMENTATION REQUEST Date of Query: 09/30/2022 10:11 AM EDT Patient Name: Antolin Perdomo Admit Date: 09/29/2022 Dear Angela Martínez, A review of the medical record indicates additional documentation may be needed. Please review below and update the documentation accordingly. Clinical Indicators: LAB FINDINGS: potassium level 5/1 - 5.8 H Is there a diagnosis that correlates with the above labs: Hyperkalemia present on arrival, resolved Other if known Other (explain) Clinically unable to determine (explain) Thank you, Marina Mccoy, CCS, CDIS Use of terms such as suspected, likely, concern for, or probable (associated with a specific diagnosi s that is being evaluated, monitored, or treated as if it exists) are acceptable and can be coded in the inpatient se tting, when documented at the time of discharge. Please use your independent medical judgment in providing your response. THIS QUERY IS PART OF THE PERMANENT MEDICAL RECORD
[2022-09-30 19:52] VITALS: BP 188/68; PULSE 78; RESP 16; TEMP 37; O2SAT 93
[2022-09-30 20:29] LABS: Glucose, Whole Blood 281 mg/dL (60-115)
[2022-09-30] MEDS: Tamsulosin HCL 0.4 MG CAPSULE PO (21:21)
[2022-09-30] MEDS: Morphine Sulfate 2 MG/ML CARTRIDGE IVPUSH (22:45)
[2022-09-30 22:56] VITALS: BP 168/70
[2022-10-01] VITALS (9 sets, daily range): BP systolic 150–215; BP diastolic 60–89; PULSE 74–91; RESP 16–22; TEMP 36.4–37.2; O2SAT 93–94
[2022-10-01] MEDS: Docusate Sodium 100 MG CAPSULE PO (01:08)
[2022-10-01] MEDS: Ketorolac Tromethamine 15 MG/ML VIAL IVPUSH ×2 (05:04→11:05)
[2022-10-01] MEDS: cefTRIAXone sodium 1 GM in 0.9 % Sodium Chloride 50 ML IV (05:05)
[2022-10-01] MEDS: hydrALAZINE HCl 20 MG/ML VIAL 5 MG IVPUSH (05:05)
[2022-10-01 07:32] LABS: Glucose, Whole Blood 211 mg/dL (60-115)
[2022-10-01] MEDS: traMADoL HCL 50 MG TABLET PO (08:26)
[2022-10-01] MEDS: Phenazopyridine HCL 100 MG TABLET PO (08:27)
[2022-10-01] MEDS: Aspirin Enteric Coated 81 MG TABLET.DR PO (08:27)
[2022-10-01] MEDS: Insulin Lispro 100 UNIT/ML 3 ML VIAL SUBCUT ×2 (08:27→11:51)
[2022-10-01] MEDS: amLODIPine Besylate 5 MG TABLET PO (11:06)
[2022-10-01 11:35] LABS: Glucose, Whole Blood 274 mg/dL (60-115)
--- NOTE | 2022-10-01 12:33 | PM.DS ---
DS: Providers Provider Date of Service: 10/01/22 Date of admission: 09/29/22 05:14 Date of discharge: 10/01/22 Primary care physician: Jemal Bustillos MD Consults: 09/29/22 06:38 Consult to Urology Routine Consulting Provider: Les Alcantar Reason for consultation: UTI, Pyelo ? post Stent placement Has provider been notified: No Attending physician on discharge: Herson Almazan Discharging clinician: Jing Pope DS: Diagnosis Discharge Diagnosis (1) Nephrolithiasis: Status: Acute (2) Status post cystoscopy with ureteral stent placement: Status: Acute DS: Summary Hospital Course Hospital Course: From H&P on day of admission ?82-year-old male with past medical history of left staghorn calculus status post ureteral stent placed on 09/28 comes into the hospital several hours post procedure with complaints of severe pain on urination.? Patient is also complaining of pain on the left upper quadrant and flank area radiating down to the groin.? Patient reports that he had the stent placed for blocking stone, with no complications, but several hours later developed significant pain but he could not tolerate came to the hospital.? He denies any fever, no chills, no shortness of breath chest pain,? no nausea or vomiting, no lower extremity edema otherwise.? On review of operative note from 5 1 patient appears to have a large staghorn calculus in the left kidney, status post cystoscopy, left dilation of the? ureteric orifice , left? ureteroscopy and left stent placement on arrival to the ED vitals stable with slightly Elevated blood pressure Labs are significant for WBC count of? 22, potassium 5.8, lactic acid of 4.7 improved after IV fluids, UA positive for nitrites, WBC, and bacteria patient started on antibiotics and will be admitted for further management UTI. Left flank pain with urination status post stent placement 09/28/22 Was initially treated with IV Rocephin. urine culture returned 10-50 CFU mixed bacterial mayank likely urogential contamination. seen by urology - bacteria and nitrites within urine likely from stone debris. will send home to complete course of ceftin given recent procedure. blood cultures have remained negative hematuria s/p stent placement. resolved nephrolithiasis/ staghorn calculus status post ureteral stent continue tamsulosin urology rec treating pain from stent spasm. prn pyridium Acute Lactic acidosis secondary to acute infection and also likely contributed by baseline metformin. improved with IVF HTN blood pressure elevated. started on norvasc with improvement. recommend outpatient follow up with PCP for close blood pressure monitoring Time Spent with Patient Time attestation: Total time managing care of this patient today ____ minutes. Discharge coordination time: Greater than 30 minutes Quality: Safe Use of Opioids Does Pt have an Active Cancer Diagnosis on the Problem List?: No Quality: Stroke Does the patient have a stroke diagnosis?: No Physical Exam Vital Signs: Vital Signs: Last Vital Signs Temp 97.6 F 10/01/22 11:28 Pulse 74 10/01/22 11:28 Resp 20 10/01/22 11:28 BP 150/60 H 10/01/22 11:28 Pulse Ox 94 10/01/22 11:28 O2 Del Method Room Air 10/01/22 11:28 BMI result Body Mass Index 21.5 Const: General: cooperative, comfortable, alert and awake Nutritional Appearance: average body habitus Orientation/consciousness: patient oriented x3 Resp: Effort & Inspection: normal respiratory effort, no respiratory distress and no use of accessory muscles Cardio: Rate: regular rate GI: Other: left side flank pain during urination only; no CVAT Inspection: No distended Palpation (GI): Soft to palpation Neuro: General: patient oriented x3 and CN's II-XI intact bilaterally Extrem: General: Yes no pedal edema DS: Data Data Completed and Pending Labs on day of discharge: Laboratory Results - last 24 hr 09/30/22 09/30/22 10/01/22 16:09 19:59 07:21 POC Glucose 102 281 H 211 H 10/01/22 11:32 POC Glucose 274 H Preliminary micro results at discharge 09/29/22 02:34 Blood Culture - Preliminary Blood - Venous No growth after 48 hours. 09/29/22 02:34 Blood Culture - Preliminary Blood - Venous No growth after 48 hours. Discharge Plan Discharge Anticipated Discharge Date/Time: 10/01/22 12:15 Patient Disposition: Home, Self-Care Discharge Diagnosis: left flank pain UTI Referrals: Les Alcantar MD [Physician] - 1 Week Jemal Bustillos MD [Primary Care Provider] - 1 Week Discharge Medications: New amlodipine 5 mg Tablet 5 mg PO DAILY 30 Days Qty: 30 0RF Protocol: Hold for SBP< HOLD for SBP < : 90 cefuroxime axetil 250 mg tablet 250 mg PO BID 5 Days Qty: 10 0RF Continued aspirin 81 mg Tablet,Delayed Release (Dr/Ec) 81 mg PO DAILY tramadol 50 mg tablet 50 mg PO Q6H PRN (Reason: pain (scale score 1-3)) Qty: 8 0RF tamsulosin 0.4 mg capsule 0.4 mg PO BEDTIME 14 Days Qty: 14 0RF phenazopyridine [Pyridium] 100 mg tablet 100 mg PO TID PRN (Reason: Spasm) 4 Days Qty: 12 0RF glyburide 5 mg tablet 5 mg PO BID metformin 500 mg tablet 500 mg PO BID Discontinued sulfamethoxazole-trimethoprim [Bactrim] 400-80 mg tablet 1 tab PO DAILY 5 Days Qty: 5 0RF Discharge Orders: Discharge Order (Routine); Ordered 10/01/22 Ordered By: Jing Pope Activity on Discharge: As tolerated Stand Alone Forms: Patient Portal Discharge page Care Plan Goals: resolution of flank pain Health Concerns: left side flank pain - related to recent stent placement elevated blood pressure Plan of Treatment: pyridium prn for spasm related to flank pain call to schedule follow up appointment with urology complete course of antibiotics as prescribed blood pressure has been high - started on Norvasc. call to schedule follow up with PCP for blood pressure monitoring Assessment: see discharge summary
--- NOTE | 2022-10-01 13:18 | MHC.CM.PN ---
PATIENT IS DC HOME - SELF CARE. RN AWARE OF PLAN. IMM / PREVIOUSLY COMPLETED
[2022-10-02 06:56] LABS: Glucose, Whole Blood 246 mg/dL (60-115)
== END 2022-10-01 14:48 | disposition home or self-care (01) | DRG 921 ==
LOC: HO.ED 09-29 01:59 → HO.EDOVER 09-29 05:23 → HO.S3 09-29 18:01
PROVIDERS: Nurse Practitioner Acute Care; Physician Assistant; Admitting Provider Internal Medicine; Emergency Provider Internal Medicine; PCP Internal Medicine Medical Oncology; Visit Provider Physician Assistant Medical
DX: N99.820 Postprocedural hemorrhage of a genitourinary system organ or structure following a genitourinary system procedure (principal); Y84.8 Other medical procedures as the cause of abnormal reaction of the patient, or of later complication, without mention of misadventure at the time of the procedure; J44.9 Chronic obstructive pulmonary disease, unspecified; E87.5 Hyperkalemia; E11.51 Type 2 diabetes mellitus with diabetic peripheral angiopathy without gangrene; Z87.442 Personal history of urinary calculi; F17.210 Nicotine dependence, cigarettes, uncomplicated; Z71.6 Tobacco abuse counseling; Z79.82 Long term (current) use of aspirin; Z79.84 Long term (current) use of oral hypoglycemic drugs; Z79.899 Other long term (current) drug therapy
CPT/HCPCS: 36415; 74176; 80048; 81001; 82947; 83605; 85025; 87040; 87086; 93005; 99285; J0696; J1650; J1885; J2270; J2405

== ENCOUNTER 2022-10-12 06:54 | Day surgery (SDC) | payer MEDICARE, MEDICAID, SELFPAY ==
[2022-10-12] VITALS (8 sets, daily range): BP systolic 134–169; BP diastolic 55–68; PULSE 64–78; RESP 16–20; TEMP 36.1–36.6; O2SAT 93–100; BMI 21.1
--- NOTE | ~2022-10-12 | FL_ITS ---
EXAMINATION: XR FLUOROSCOPY WITH IMAGES CLINICAL INFORMATION: Urinary tract calculi. COMPARISON: CT abdomen and pelvis 09/29/2022 TECHNIQUE: Fluoroscopy Supervised By: Dr. Les Alcantar. Fluoroscopy Time: 19 seconds. Cumulative Dose: 4.04 mGy. Images: 3. FINDINGS: Initial spot image shows contrast left collecting system and left catheter. Subtle filling defects in the collecting system are consistent with the calculi noted on CT. No extravasation of contrast. Final image pelvis shows no ureteral stent. There is an intravascular stent again seen left iliac artery. FL/FL guidance in OR IMPRESSION: Fluoroscopy for urologic procedure.
[2022-10-12 07:32] LABS: Glucose, Whole Blood 143 mg/dL (60-115)
[2022-10-12] MEDS: Lactated Ringers 1,000 ML 50 ML IVCONT (07:34)
--- NOTE | 2022-10-12 08:06 | PC.NURSE ---
Dr. Desai updated that patient stated that he fell from the couch late Wednesday night and hit his head on the corner of the radiator patient states he did not lose conciousness, but he knows it happened between 11:45-12:15. Patient states he did not go to hospital. Denies n/v. Afebrile today. c/o pain to head as 08/07.
--- NOTE | 2022-10-12 08:24 | MHC.SHP ---
Pre-Procedural Eval Section A Date of Service: 10/12/22 The patient is an INPATIENT: No Changes since office visit: No Cold of Flu in the past 2 weeks, No New Medical Problems, No Changes in Medication and No Patient answered all questions The History & Physical has been completed within 30 days and I have reviewed it.: Yes Section B Chief Complaint: Calculus of kidney Details of Present Illness: Left kidney stone. Here for cystoscopy, left stent removal, repeat ureteroscopy with laser lithotripsy Relevant Family History (Specify if Yes): No Relevant Social History: None Present Medications: see Short Stay Collaborative assessment Medical History: No relevant PMH History of Previous Operations: Relevant previous surgery/procedure and date(s) Allergies: Allergies Allergy/AdvReac Type Severity Reaction Status Date / Time No Known Allergies Allergy Verified 10/12/22 08:16 [No Known Allergies*] Review of Systems Sugical H&P ROS: Negative: Constitution, Cardiovascular, Respiratory, Neurological, Psychiatric, Hem-Onc, Allergic/Immunologic, Gastrointestinal, Genitourinary, Musculoskeletal, Integumentary, Endocrine and Eyes/Ears/Nose/Throat Exam Surgical H&P Exam: Normal: HEENT, Normal: Heart, Normal: Lungs, Normal: Extremities, Normal: Abdomen, Normal: Skin and Normal: Neurological Plan Diagnosis/Plan: Unchanged ( repeat left ureteroscopy) I have reviewed the history and physical and performed a pertinent physical examination on my patient. No changes have occurred unless specified. Time Spent With Patient Time: Total time managing care of this patient today ____ minutes.
--- NOTE | 2022-10-12 09:07 | P.CONAN_ITS ---
HPI - Anesthesia Eval Consult details Narrative: for cysto, stent change PMFSH Active Problems Active Problems: All Active Problems (Updated 10/09/22 @ 00:34 by Chelsi Johnston) Status post cystoscopy with ureteral stent placement (Acute) Acute UTI (Acute) Enlarged prostate (Acute) Past Medical History Medical History COPD (chronic obstructive pulmonary disease) Diabetes mellitus, type II Elevated cholesterol Enlarged prostate Hearing loss History of kidney stones HTN (hypertension) Peripheral arterial disease Renal cysts, acquired, bilateral Rotator cuff impingement syndrome TIA (transient ischemic attack) Family History Family history of problems with anesthesia: Yes (Father arrested twice srini-op. Was resuscitated but patient a little worried ) Surgical History Surgical History History of left-sided carotid endarterectomy History of surgery Hx of cataract surgery Hx of lithotripsy History of Problems with Anesthesia: No Social History Social History Household Members: None Household Members Other:: 0 Housing: House Are you a primary laboratory animal care veterinarian to a significant other at home: No Do you presently have visiting nurse or other home services: Yes Patient Tobacco Use Status: Current everyday Tobacco user Tobacco use type: Cigarette Cigarette Packs Per Day: 1 Cigarettes Per Day: 20.0 Years Smoked: 60 e-Cigarette/Vaping Use: Never Used Are you DNR?: No Advance Directives: No Advance Directives Information Provided: Yes Nutrition Risks: No Nutritional Risk service: No Current occupational status: employed Meds Allergies Allergy/AdvReac Type Severity Reaction Status Date / Time No Known Allergies Allergy Verified 10/12/22 08:16 [No Known Allergies*] Active Medications: Current Medications Lactated Ringer's (Lr) 1,000 mls @ 50 mls/hr IVCONT .Q20H [facility] Last Admin: 10/12/22 07:34 Dose: 50 mls/hr Home Medications Medication Instructions Recorded Confirmed Last Taken Type glyburide 5 mg tablet 5 mg PO BID 02/17/22 10/12/22 Unknown History metformin 500 mg tablet 500 mg PO BID 02/17/22 10/12/22 Unknown History aspirin 81 mg tablet,delayed 81 mg PO DAILY 04/10/12/22 09/27/22 History release Exam Exam Date and Time: October 12, 2022 0907 Height,Weight and Vital Signs: Height 5 ft 5 in Weight 57.606 kg Last Vital Signs Temp 97.6 F 10/12/22 07:31 Pulse 78 10/12/22 07:31 Resp 18 10/12/22 07:31 BP 158/68 H 10/12/22 07:31 Pulse Ox 94 10/12/22 07:31 O2 Del Method Room Air 10/12/22 07:31 Pertinent Lab Results Pertinent Lab Results: Laboratory Tests 10/12/22 07:25 POC Glucose 143 H Airway TM Dist: >3cm Neck ROM: Full Denture: Upper and Lower Heart: ok Lungs: ok Assessment and Plan Assessment Anesthesia Assessment: Anesthesia Plan Discussed and Chart Reviewed Final Anesthetic Review Family History of Problems with Anesthesia: Yes (Father arrested twice srini-op. Was resuscitated but patient a little worried ) History of Problems with Anesthesia: No NPO: Yes ASA Class: III Final Preanesthetic Review: No Changes in Pt Med Stat, Meds/Allgs Chart Reviewed, Consent Obtained/Reviewed and Anes Risks/Benef Reviewed Patient Risk: Intermediate Procedure Risk: Low Anesthetic Plan Anesthetic Plan: GA and Agree w/ Assess. and Plan Disposition: Standard PACU
--- NOTE | 2022-10-12 10:20 | P.OP_ITS ---
Operative Note Operative Note Date of Service: 10/12/22 Narrative: PreOperative Diagnosis: Left renal stone with indwelling stent Post Operative Diagnosis: left renal stone with indwelling stent Procedure: - cystoscopy, left retrograde - removal left indwelling stent - left ureteroscopy, laser lithotripsy, stone basketing Surgeon: Dr Les Alcantar Anesthesia: General Indications for procedure: underwent prior ureteroscopy with laser lithotripsy for 2 cm stone. Here for completion procedure. Procedure: After informed consent was verified patient was brought to the operating placed in supine position. Anesthesia was administered per protocol. Patient was placed in modified dorsal lithotomy position and prepped and draped in a sterile fashion. Safety pause time-out and side of surgery confirmed. Antibiotics confirmed. 22 Ukrainian cystoscope was inserted per urethra. Bladder was normal in its entirety. Both ureteric orifices were in normal position. Stent emerging from left ureteric orifice The left ureteric orifice was cannulated and a retrograde examination was performed. A Sensor guidewire was placed up to the level of the renal pelvis under fluoroscopy. The left stent was removed The ureteric access sheath was placed and the inner cannula with access wire removed. The digital flexible ureteral scope was placed. Stone fragments greater than 5 mm were present throughout the lower pole and medium pole of the kidney. The laser was used with a 360mm laser fiber. The stones were fragmented into small size using popcorn technique and power of 1.4 joules. The basket was then used to remove multiple stone fragments for approximately 45 minutes. Irrigation was performed using the 4 Ukrainian open-ended catheter The bladder was emptied. The patient tolerated the procedure well and was extubated in the operating room, and transferred in stable condition to the recovery area. Pathology: stones Drains: none
[2022-10-12] MEDS: Phenazopyridine HCL 100 MG TABLET PO (10:46)
[2022-10-17 22:29] LABS: Stone Source LEFT KIDNEY STONE
== END 2022-10-12 12:20 | disposition home or self-care (01) ==
PROVIDERS: PCP Internal Medicine Medical Oncology; Visit Provider Urology
PROC: (CPT 52353; principal; 2022-10-12 08:40)
DX: N20.0 Calculus of kidney (principal); Z87.442 Personal history of urinary calculi; Z46.6 Encounter for fitting and adjustment of urinary device; Z96.0 Presence of urogenital implants; N40.0 Benign prostatic hyperplasia without lower urinary tract symptoms; N28.1 Cyst of kidney, acquired; J44.9 Chronic obstructive pulmonary disease, unspecified; I10 Essential (primary) hypertension; E78.00 Pure hypercholesterolemia, unspecified; E11.9 Type 2 diabetes mellitus without complications; Z79.82 Long term (current) use of aspirin; Z79.84 Long term (current) use of oral hypoglycemic drugs; Z86.73 Personal history of transient ischemic attack (TIA), and cerebral infarction without residual deficits; F17.210 Nicotine dependence, cigarettes, uncomplicated
CPT/HCPCS: 52353; 82365; 82947; 88300; C1758; C1769; J0131; J1956; J3010; Q9967

== ENCOUNTER 2022-11-18 07:30 | Outpatient (REF) | payer MEDICARE, MEDICAID, SELFPAY | END 2022-11-18 07:31 | disposition home or self-care (01) | LOC: HO.XRAY 07:30 | PROVIDERS: PCP Internal Medicine Medical Oncology; Visit Provider Urology | DX: N40.0 Benign prostatic hyperplasia without lower urinary tract symptoms (principal) | CPT/HCPCS: 74018 ==

== ENCOUNTER → 2022-11-24 09:11 | Outpatient (BNVA) | payer MEDICARE, MEDICAID, SELFPAY | PROVIDERS: Visit Provider Urology | DX: N20.0 Calculus of kidney (principal); N28.1 Cyst of kidney, acquired | CPT/HCPCS: 99212 ==

== ENCOUNTER 2023-02-16 07:13 | Outpatient (REF) | payer MEDICARE, MEDICAID, SELFPAY ==
[2023-02-16 07:22] LABS: MANUAL DIFF FLAG NO
[2023-02-16 08:02] LABS: Estimated Average Glucose 177 mg/dL; Hemoglobin A1c % 7.8 % (<6.0)
[2023-02-16 08:12] LABS: Basophils Percent Auto 0.4 % (0-2); Eosinophils Absolute Auto 0.4 X10*3/uL (0.0-0.4); Eosinophils Percent Auto 3.7 % (0-4); Hematocrit 43.8 % (42.0-52.0); Hemoglobin 14.5 g/dl (14.0-18.0); Imm Gran Abs Auto 0.04 X10*3/uL (0.00-0.03); Imm Gran Pct Auto 0.4 % (0.0-0.4); Lymphocytes Absolute Auto 3.3 X10*3/uL (1.2-4.9); Lymphocytes Percent Auto 33.2 % (20-40); Mean Corpuscular HGB Conc 33.1 g/dl (31.0-36.0); Mean Corpuscular Hemoglobin 31.3 pg (27.0-33.0); Mean Corpuscular Volume 94.4 fL (80.0-98.0); Mean Platelet Volume 10.1 fL (9.4-12.4); Monocytes Percent Auto 9.8 % (2-11); Neutrophils Absolute Auto 5.1 x10*3/uL (2.0-8.3); Neutrophils Percent Auto 52.5 % (45-73); Platelet Count 314 X10*3/uL (160-400); Red Blood Count 4.64 X10*6/uL (4.60-5.80); Red Cell Distribution Width 14.5 % (11.0-16.0); White Blood Count 9.8 X10*3/uL (4.8-10.8)
[2023-02-16 08:18] LABS: Alanine Aminotransferase 29 U/L (0-40); Albumin Level 4.4 g/dL (3.5-5.0); Alkaline Phosphatase 84 U/L (39-117); Anion Gap 13 (12-20); Aspartate Amino Transferase 22 U/L (5-37); Bilirubin Total 0.3 mg/dL (0.0-1.0); Blood Urea Nitrogen 26 mg/dL (9-16); Calcium 9.7 mg/dL (8.4-10.2); Carbon Dioxide 27 mmol/L (22-29); Chloride 104 mmol/L (96-108); Cholesterol 179 mg/dL (<200); Estimated Glomerular Filt Rate > 60; Glucose Fasting 150 mg/dL (60-99); HDL Cholesterol 40 mg/dL (>40); LDL Cholesterol Calculated 101 mg/dL (<100); Potassium 5.1 mmol/L (3.3-5.1); Sodium 139 mmol/L (135-145); Total Protein 7.4 g/dL (6.5-8.0); Triglycerides 193 mg/dL (<150)
== END 2023-02-16 07:14 | disposition home or self-care (01) ==
LOC: HO.LAB 07:13
PROVIDERS: PCP Internal Medicine Medical Oncology; Visit Provider Internal Medicine Medical Oncology
DX: I10 Essential (primary) hypertension (principal); E11.9 Type 2 diabetes mellitus without complications; E78.5 Hyperlipidemia, unspecified
CPT/HCPCS: 36415; 80053; 80061; 83036; 85025

== ENCOUNTER 2023-03-15 07:43 | Outpatient (REF) | payer MEDICARE, MEDICAID, SELFPAY ==
--- NOTE | ~2023-03-15 | US_ITS ---
EXAMINATION: US RETROPERITONEAL LIMITED (RENAL ONLY) CLINICAL INFORMATION: Calculus of kidney. COMPARISON: X-ray abdomen [facility] 11/18/2022. CT abdomen and pelvis without contrast 09/29/2022. Ultrasound retroperitoneal limited (renal only) 02/10/2022 and 08/09/2019. X-ray abdomen [facility] 12/16/2016. TECHNIQUE: Real-time imaging of the kidneys. FINDINGS: RIGHT KIDNEY: 11.8 x 4.4 x 4.6 cm (SAG x AP x TRV). 0.5 cm lower pole calculus. No hydronephrosis. Limited visualization. 2.1 cm upper pole cyst appears simple. There is no indication for followup imaging. Multiple additional smaller renal cysts. Renal cortical thickness is normal. LEFT KIDNEY: 11.6 x 5.2 x 4.9 cm (SAG x AP x TRV). At least 4 renal calculi, largest measured lower pole 0.6 cm. No hydronephrosis. Limited visualization. Renal cortical thickness is normal. 6.3 x 3.1 x 4.8 cm lateral midpole cyst with benign features. There is no indication for followup imaging. US/US renal BI IMPRESSION: Bilateral renal calculi. No hydronephrosis.
== END 2023-03-15 07:44 | disposition home or self-care (01) ==
LOC: HO.US 07:43
PROVIDERS: PCP Internal Medicine Medical Oncology; Visit Provider Urology
DX: N20.0 Calculus of kidney (principal)
CPT/HCPCS: 76775

== ENCOUNTER 2023-03-26 08:36 | Outpatient (AMB) | payer MEDICARE, MEDICAID, SELFPAY ==
--- NOTE | 2023-03-26 08:37 | MHC.OFFVIS ---
Intake Intake Visit Reasons: 4M US(set) Intake Note: Patient is Present for Telephone Follow Up Urology Med: Tamsulosin Antibiotic Allergy: None Blood Thinner: Aspirin Pharamcy: [facility] Allergies No Known Allergies [No Known Allergies*] Allergy (Verified 03/26/23 08:38) HPI HPI Comments History of Present Illness Details Antolin is a pleasant male. He is a patient of Dr. Bustillos. He is seen for the following urologic conditions - renal cysts - lower urinary tract symptoms - nephrolithiasis Telemedicine Evaluation 15 min Consultation Doximity Reddy Video Did not tolerate potassium citrate Switch to vitamin B6 Diabetic Nephrolithiasis Renal imaging with large stones on left side Bilateral cysts CT angiogram with 2 cm stone left renal pelvis - CT 06/22 oz 2 cm stone within left renal pelvis - 03/22 renal ultrasound 4 mm stone bilateral Intervention - 10/20 left USR Composition - 10/20 calcium oxalate monohydrate 80% PFSH Medical History Peripheral arterial disease TIA (transient ischemic attack) COPD (chronic obstructive pulmonary disease) Hearing loss Elevated cholesterol HTN (hypertension) Staghorn calculus Nephrolithiasis Enlarged prostate Diabetes mellitus, type II Renal cysts, acquired, bilateral History of kidney stones Rotator cuff impingement syndrome Surgical History History of left-sided carotid endarterectomy Hx of cataract surgery Hx of lithotripsy History of surgery Social History Household Members: None Household Members Other:: 0 Housing: House Are you a primary career technical education instructor to a significant other at home: No Do you presently have visiting nurse or other home services: Yes Patient Tobacco Use Status: Current everyday Tobacco user Tobacco use type: Cigarette Cigarette Packs Per Day: 1 Cigarettes Per Day: 20.0 Years Smoked: 60 e-Cigarette/Vaping Use: Never Used service: No Current occupational status: employed Review of Systems Const All systems reviewed & are unremarkable except as noted in HPI and below Reports no additional complaints Resp Reports no additional complaints GI Reports no additional complaints Reports as per HPI Musc Reports no additional complaints Physical Exam Telemedicine evaluation Appropriate responses Regular breathing rate and rhythm HEENT Head: Yes normal to inspection Ears: hearing grossly normal bilaterally Eyes General: appearance normal, both eyes and all related structures Neck Neck: Yes normal visual inspection Chest Chest palpation & inspection: normal inspection of the chest Resp Effort & Inspection: normal respiratory effort and able to speak in complete sentences Assessment & Plan Assessment & Plan (1) Calcium oxalate kidney stones: Code(s): N20.0 - Calculus of kidney Plan Change to Vit B6 Orders: Orders US renal BI 6 Months N20.0 - Calculus of kidney Medications: New pyridoxine (vitamin B6) 50 mg PO DAILY 90 tabs 1RF 90 days N20.0 - Calculus of kidney Discontinued potassium citrate ER Discontinued Reason: Doctor's Order 20 mEq (2 x 10 mEq (1,080 mg)) PO BID 360 tabs 1RF 90 days N20.0 - Calculus of kidney Patient Instructions: Imaging studies, laboratory and physical exam results were discussed and reviewed in detail. No major barriers to patient understanding were identified. An opportunity to ask questions regarding the treatment plan was provided. All questions were answered. The patient expressed understanding and agreement with the above treatment plan. The patient is aware they should contact our office by phone for worsening of their current condition or the appearance of new urologic symptoms. Compliance is encouraged with any medications and followup testing that is ordered. It is a privilege to participate in the urologic care of your patient. If you have any questions or concerns regarding treatment for the above conditions, or other urologic issues, please do not hesitate to contact me. The office telephone contact is [phone]. This note is constructed using voice recognition software. While every effort has been made to ensure accuracy contact lens flashing puncher errors may have been included. Yours sincerely, Dr Les Alcantar MD, [facility] - Urology Providers of Expert, Compassionate Care for the Genitourinary System Telehealth Telehealth Location of provider rendering services: practice address Location of patient: address on file Patient Identification confirmed using: Name, : Yes Telehealth method: video Patient verbally consented to treatment: Yes Patient verbally consented to billing insurance company: Yes Patient informed of any privacy concerns related to visit: Yes Coding Level of Care Code Tele Est Pt Level 3 (26607) Diagnoses Calcium oxalate kidney stones N20.0
== END 2023-03-26 09:17 | disposition home or self-care (01) ==
LOC: HO.HUSH 08:36
PROVIDERS: PCP Internal Medicine Medical Oncology; Visit Provider Urology
DX: N20.0 Calculus of kidney (principal)
CPT/HCPCS: 99213

== ENCOUNTER → 2023-03-26 08:36 | Outpatient (BNVA) | payer MEDICARE, MEDICAID, SELFPAY | PROVIDERS: PCP Internal Medicine Medical Oncology; Visit Provider Urology ==

== ENCOUNTER 2023-05-22 15:30 | Inpatient (IN) | payer MEDICARE, MEDICAID, SELFPAY ==
--- NOTE | ~2023-05-22 | XR_ITS ---
EXAMINATION: XR CHEST CLINICAL INFORMATION: Cough. COMPARISON: None available. TECHNIQUE: 2 views of the chest were obtained. FINDINGS: No significant abnormality is noted involving the heart, lungs, mediastinum, bony thorax or soft tissues. XR/XR chest 2V IMPRESSION: Unremarkable chest examination.
[2023-05-22 15:33] VITALS: BP 227/80; PULSE 75; RESP 20; TEMP 36.7; O2SAT 82; BMI 28.4
--- NOTE | 2023-05-22 15:45 | PC.NURSE ---
pt o2 difficult to read as pts hands cold, portable finger monitor reading 82, pt pink and moving good air. brought back to room by Rowan JARAMILLO
[2023-05-22 15:50] VITALS: BP 189/69; PULSE 86; RESP 18; O2SAT 98
--- NOTE | 2023-05-22 15:57 | PC.NURSE ---
patient states he attended a april 02 with [phone] people. patient states he started to feel as if he had a virus and congestion since, patient states he thinks he has a new virus that came out in early March . patient is awake, alert and oriented. patients hands were very cold, warmed with blanket o2 sat is 99% on room air.
--- NOTE | 2023-05-22 17:57 | ECG_ITS ---
Test Reason : DYSPNEA Blood Pressure : / mmHG Vent. Rate : 076 BPM Atrial Rate : 076 BPM P-R Int : 158 ms QRS Dur : 120 ms QT Int : 394 ms P-R-T Axes : 066 -66 052 degrees QTc Int : 443 ms Normal sinus rhythm Right bundle branch block Left anterior fascicular block Bifascicular block Minimal voltage criteria for LVH, may be normal variant ( R in aVL ) Septal infarct , age undetermined Abnormal ECG When compared with ECG of 29-SEP-2022 03:32, Right bundle branch block is now Present Septal infarct is now Present Referred By: Diamond Marx Electronically Signed By:BISHNU DE LA CRUZ MD
--- NOTE | 2023-05-22 18:17 | ED.GENADULT ---
HPI - General Adult General Chief complaint: Dyspnea Stated complaint: sob Time Seen by Provider: 05/22/23 18:09 Source: patient and family Mode of arrival: ambulatory Limitations: no limitations History of Present Illness HPI narrative: 83-year-old male came in with family for a month complaint of shortness of breath, coughing with clear phlegm, sneezing runny nose with clear rhinorrhea, patient had a coughing fit today causing him to have vomiting. No chest pain, no abdominal pain, no diarrhea, no nausea, only vomits when he having coughing fits. No recent travel, no sick contacts. Related Data Home Medications Medication Instructions Recorded Confirmed glyburide 5 mg tablet 5 mg PO BID 02/17/22 10/12/22 metformin 500 mg tablet 500 mg PO BID 02/17/22 10/12/22 aspirin 81 mg tablet,delayed 81 mg PO DAILY 09/24/22 10/12/22 release Previous Rx's Medication Instructions Recorded amlodipine 5 mg tablet 5 mg PO DAILY 30 days #30 tabs 10/01/22 cefuroxime axetil 250 mg tablet 250 mg PO BID 5 days #10 tabs 10/01/22 phenazopyridine 100 mg tablet 100 mg PO TID PRN Spasm 4 days #12 10/19/22 (Pyridium) tabs tamsulosin 0.4 mg capsule 0.4 mg PO BEDTIME 90 days #90 caps 02/02/23 pyridoxine (vitamin B6) 50 mg 50 mg PO DAILY 90 days #90 tabs 03/26/23 tablet Allergies Allergy/AdvReac Type Severity Reaction Status Date / Time No Known Allergies Allergy Verified 03/26/23 08:38 [No Known Allergies*] Review of Systems Review of Systems: All other systems are reviewed and are negative Constitutional: Reports as per HPI and Reports no additional constitutional complaints Eyes: Reports as per HPI and Reports no additional eye complaints Reports system reviewed and no additional complaints, except as documented Cardiovascular: Reports as per HPI and Reports no additional cardiovascular complaints Respiratory: Reports as per HPI and Reports no additional respiratory complaints Gastrointestinal: Reports as per HPI and Reports no additional gastrointestinal complaints Genitourinary: Reports no additional female genitourinary complaints Musculoskeletal: Reports no additional musculoskeletal complaints Skin/Breast: Reports system reviewed and no additional complaints, except as docu Psychiatric: Reports no additional psychiatric complaints Endocrine: Reports no additional endocrine complaints Hematologic/Lymphatic: Reports no additional hematologic/lymphatic complaints Allergic/Immunologic: Reports no additional allergic/immunologic complaints Reports system reviewed and no additional complaints, except as documented and Reports Abnormal speech present [facility] Past Medical History Medical History Peripheral arterial disease TIA (transient ischemic attack) COPD (chronic obstructive pulmonary disease) Hearing loss Elevated cholesterol HTN (hypertension) Staghorn calculus Nephrolithiasis Enlarged prostate Diabetes mellitus, type II Renal cysts, acquired, bilateral History of kidney stones Rotator cuff impingement syndrome Surgical History History of left-sided carotid endarterectomy Hx of cataract surgery Hx of lithotripsy History of surgery Social History Social History Household Members: None Household Members Other:: 0 Housing: House Are you a primary healthcare or medical to a significant other at home: No Do you presently have visiting nurse or other home services: Yes Patient Tobacco Use Status: Current everyday Tobacco user Tobacco use type: Cigarette Cigarette Packs Per Day: 1 Cigarettes Per Day: 20.0 Years Smoked: 60 Smoked in Last 30 Days: Yes e-Cigarette/Vaping Use: Never Used Use of substances other than those prescribed or required for medical reasons: No Advance Directives: Yes Advance Directives on File: Yes Advance Directives Date on File: 09/29/22 service: No Current occupational status: employed Physical Exam ED Vital Signs: Vital Signs - 24 hr 05/22/23 15:33 05/22/23 15:50 05/22/23 19:09 Temperature 98.1 F Pulse Rate 75 86 82 Respiratory Rate 20 18 17 Blood Pressure 227/80 H 189/69 H 197/77 H Pulse Oximetry 82 L 98 97 Oxygen Delivery Method Room Air Room Air Room Air 05/22/23 19:20 05/22/23 19:44 05/22/23 22:20 Temperature Pulse Rate Respiratory Rate 16 Blood Pressure 203/82 H 182/70 H 159/55 H Pulse Oximetry 97 97 Oxygen Delivery Method Room Air Room Air BMI result Body Mass Index 28.4 Vital signs have been reviewed and appear to be correct. Blood pressure elevated. Heart rate normal. Respiratory rate normal. Temperature normal. Oxygen saturation normal. Appearance: Alert. Oriented X3. No acute distress. Head: Normal external exam. Normocephalic. Atraumatic. No Sharpe signs noted. No raccoon eyes noted Eyes: PERRLA. EOMI. Conjunctiva and sclera normal. Eyelids normal. ENT: TM's Normal. Pharynx normal. Uvula midline. Moist mucous membranes. Bilateral frontal/maxillary sinus tenderness with percussion, no nasal discharge. Neck: Normal inspection. Neck supple. FROM. No adenopathy. Thyroid Normal. No meningeal signs. No neck mass noted. CVS: Normal heart rate and rhythm. Heart sound normal. No murmurs noted. Pulses normal throughout. Respiratory: No respiratory distress. Painless inspiration. Breath sounds normal. No wheezes/rales/rhonchi noted. Chest nontender. No accessory muscle usage noted or decreased air movement noted. Abdomen: Soft and nontender. Bowel sounds normal in all 4 quadrants. No distention noted. No organomegaly noted. No visible injury noted. Back: No CVA tenderness. Full range of motion noted. Skin: Skin warm and dry. Normal skin color. Normal skin turgor. No rashes/lesions/lacerations noted. Extremities: No lower extremity edema. Extremities exhibit normal range of motion. Extremities nontender. Neuro: Oriented X 3. Cranial nerve exam: II-XII are grossly intact No motor deficit. No sensory deficit. Reflexes normal. Course Reevaluation(s) Reevaluation #1: [age] year male with on and off cough for over 6 weeks, no chest pain, had nonspecific EKG changes today, 1st troponin was 52 and repeat troponin was doubled to 103, patient still have no chest pain. The case was discussed with Dr. Sifuentes who recommended to start the patient on IV heparin with troponins trend every 6-8 hours. The case discussed with the hospitalist Dr. Mcclellan who accepted the patient to his service Time: 23:36 Medications Administered Discontinued Medications Generic Name Dose Route Start Last Admin Trade Name Freq PRN Reason Stop Dose Admin Amlodipine Besylate 5 mg 05/22/23 19:23 05/22/23 19:29 Amlodipine Besylate 5 Mg Tablet PO 05/22/23 19:24 5 mg ONCE ONE Administration Protocol Aspirin 81 mg 05/22/23 22:59 05/22/23 23:23 Aspirin Enteric Coated 81 [address]Dr KAM 05/22/23 23:00 81 mg ONCE ONE Administration Medical Decision Making Differential Diagnosis Differential Diagnoses: The differential diagnosis associated with the presentation includes (Viral infection, ACS, pneumonia, pneumothorax, electrolyte abnormality, severe anemia.) Admission/Observation Consideration of admission/observation: Escalation of care including admission/observation considered Consult Healthcare Provider Management of the patient was discussed with: Hospitalist (Dr. Mcclellan) and Merchandiser Seasonal (Dr. Sifuentes) Lab Data MDM Lab Attestation statement: I reviewed the patient's lab results. 05/22/23 19:17 05/22/23 19:17 Labs: Lab Results 05/22/23 05/22/23 05/22/23 Range/Units 17:38 19:17 22:12 WBC 8.0 (4.8-10.8) X10*3/uL RBC 4.44 L (4.60-5.80) X10*6/uL Hgb 13.7 L (14.0-18.0) g/dl Hct 41.2 L (42.0-52.0) % MCV 92.8 (80.0-98.0) fL MCH 30.9 (27.0-33.0) pg MCHC 33.3 (31.0-36.0) g/dl RDW 13.8 (11.0-16.0) % Plt Count 286 (160-400) X10*3/uL MPV 9.9 (9.4-12.4) fL Immature Gran % (Auto) 1.2 H (0.0-0.4) % Neut % (Auto) 54.5 (45-73) % Lymph % (Auto) 28.2 (20-40) % [place] % (Auto) 10.5 (2-11) % Eos % (Auto) 5.1 H (0-4) % Baso % (Auto) 0.5 (0-2) % Lymph # (Auto) 2.3 (1.2-4.9) X10*3/uL [place] # (Auto) 0.8 (0.1-1.2) X10*3/uL Eos # (Auto) 0.4 (0.0-0.4) X10*3/uL Baso # (Auto) 0.0 (0.0-0.2) X10*3/uL Abs Immat Gran (auto) 0.10 H (0.00-0.03) X10*3/uL Absolute Neuts (auto) 4.4 (2.0-8.3) x10*3/uL Absolute Nucleated RBC 0.000 (0.0-0.012) X10*3/uL Nucleated RBC % (auto) 0.0 (0.0-0.2) /100WBC Sodium 140 (135-145) mmol/L Potassium 4.9 (3.3-5.1) mmol/L Chloride 106 (96-108) mmol/L Carbon Dioxide 25 (22-29) mmol/L Anion Gap 14 (12-20) BUN 33 H (9-16) mg/dL Creatinine 0.93 (0.5-1.4) mg/dL Estim Creat Clear Calc 55.7 Estimated GFR > 60 Random Glucose 106 (60-115) mg/dL Calcium 9.8 (8.4-10.2) mg/dL Troponin I High Sens 56.0 H 102.7 H* D (<3.5-35.0) ng/L B-Natriuretic Peptide 53 (<100) pg/mL Lipase 36 (8-78) U/L Urine Color Yellow Urine Appearance Clear Urine pH 5.5 (5.0-9.0) Ur Specific [place] 1.020 (1.005-1.025) Urine Protein 30 (1+) H (Neg-Trace) mg/dL Urine Glucose (UA) >=1000 H (Negative) mg/dL Urine Ketones Negative (Negative) mg/dL Urine Blood Negative (Negative) Urine Nitrite Negative (Negative) Ur Leukocyte Esterase Trace H (Negative) Urine RBC 0-2 (0-2) /HPF Urine WBC 6-10 H (0-5) /HPF Ur Squamous Epith Cells 0-2 (0-2) /HPF Urine Bacteria None Seen (None Seen) Hyaline Casts 0-2 (0-2) /LPF Influenza Type A (PCR) NEGATIVE (Negative) Influenza Type B (PCR) NEGATIVE (Negative) RSV RNA Qual (PCR) NEGATIVE (Negative) SARS-CoV-2 RNA (RT-PCR) NEGATIVE (Negative) Independent Interpretation I performed an independent interpretation of an: EKG (Normal sinus rhythm at 76 beats per minutes, RBBB, nonspecific T-wave changes.) and Plain X-Ray (Chest: Unremarkable chest examination) Radiology Impression Discussion of test interpretation with radiology: I have reviewed the radiologist's reading. Chronic Conditions Patient?s care impacted by: Diabetes and Hypertension Critical Care Time Critical Care Time Critical Care Time: Yes Total Critical Care Time: 60 Attestation: I spent 60 minutes providing critical care service to the patient, this including time spent at the bedside to evaluate the patient, reassess the patient, monitoring vital signs, review labs, and radiographic studies, counseling the patient/family, discussing the case with consultants, disposition the patient. Discharge Plan Discharge Clinical Impression: Non-ST elevation [place] (NSTEMI) Patient Disposition: Admitted As Inpatient Prescriptions: No Action phenazopyridine [Pyridium] 100 mg tablet 100 mg PO TID PRN (Reason: Spasm) 4 Days Qty: 12 0RF tamsulosin 0.4 mg capsule 0.4 mg PO BEDTIME 90 Days Qty: 90 1RF aspirin 81 mg Tablet,Delayed Release (Dr/Ec) 81 mg PO DAILY amlodipine 5 mg Tablet 5 mg PO DAILY 30 Days Qty: 30 0RF Protocol: Hold for SBP< HOLD for SBP < : 90 cefuroxime axetil 250 mg tablet 250 mg PO BID 5 Days Qty: 10 0RF glyburide 5 mg tablet 5 mg PO BID metformin 500 mg tablet 500 mg PO BID pyridoxine (vitamin B6) 50 mg tablet 50 mg PO DAILY 90 Days Qty: 90 1RF
[2023-05-22 18:19] LABS: Influenza A PCR NEGATIVE (Negative); Influenza B PCR NEGATIVE (Negative); Resp Syncy Virus RNA Qual PCR NEGATIVE (Negative); SARS COV2 PCR INHOUSE NEGATIVE (Negative)
[2023-05-22 19:09] VITALS: BP 197/77; PULSE 82; RESP 17; O2SAT 97
[2023-05-22 19:20] VITALS: BP 203/82
[2023-05-22 19:22] LABS: MANUAL DIFF FLAG NO
[2023-05-22 19:24] LABS: Appearance Urine Clear; Color Urine Yellow; Glucose Urine UA >=1000 mg/dL (Negative); Leukocyte Esterase Urine Trace (Negative); Nitrite Urine Negative (Negative); PH 5.5 (5.0-9.0); UMIC TRIGGER UACC YES; Urine Blood Negative (Negative); Urine Ketones Negative (Negative); Urine Protein 30 (1+) mg/dL (Neg-Trace)
[2023-05-22 19:27] LABS: Basophils Percent Auto 0.5 % (0-2); Eosinophils Absolute Auto 0.4 X10*3/uL (0.0-0.4); Eosinophils Percent Auto 5.1 % (0-4); Hematocrit 41.2 % (42.0-52.0); Hemoglobin 13.7 g/dl (14.0-18.0); Imm Gran Pct Auto 1.2 % (0.0-0.4); Lymphocytes Absolute Auto 2.3 X10*3/uL (1.2-4.9); Lymphocytes Percent Auto 28.2 % (20-40); Mean Corpuscular HGB Conc 33.3 g/dl (31.0-36.0); Mean Corpuscular Hemoglobin 30.9 pg (27.0-33.0); Mean Corpuscular Volume 92.8 fL (80.0-98.0); Mean Platelet Volume 9.9 fL (9.4-12.4); Monocytes Absolute Auto 0.8 X10*3/uL (0.1-1.2); Monocytes Percent Auto 10.5 % (2-11); Neutrophils Absolute Auto 4.4 x10*3/uL (2.0-8.3); Neutrophils Percent Auto 54.5 % (45-73); Platelet Count 286 X10*3/uL (160-400); Red Blood Count 4.44 X10*6/uL (4.60-5.80); Red Cell Distribution Width 13.8 % (11.0-16.0)
[2023-05-22 19:29] LABS: Bacteria Urine None Seen (None Seen); Hyaline Casts Urine 0-2 /LPF (0-2); RBC Urine 0-2 /HPF (0-2); Squamous Epithelial Cell Urine 0-2 /HPF (0-2); UACC Culture Trigger YES
[2023-05-22] MEDS: amLODIPine Besylate 5 MG TABLET PO (19:29)
[2023-05-22 19:38] LABS: Anion Gap 14 (12-20); Blood Urea Nitrogen 33 mg/dL (9-16); Calcium 9.8 mg/dL (8.4-10.2); Carbon Dioxide 25 mmol/L (22-29); Chloride 106 mmol/L (96-108); Creatinine Clr Calc Pharmacy 55.7; Estimated Glomerular Filt Rate > 60; Glucose Random 106 mg/dL (60-115); Lipase 36 U/L (8-78); Potassium 4.9 mmol/L (3.3-5.1); Sodium 140 mmol/L (135-145)
[2023-05-22 19:43] LABS: B Type Natriuretic Peptide 53 pg/mL (<100)
[2023-05-22 19:44] VITALS: BP 182/70; O2SAT 97
--- NOTE | 2023-05-22 19:44 | PC.NURSE ---
labs drawn. ua sent to lab. bp elevated Dr. Marx notified. pt medicated per jul. bp improving. pt denies cp/sob/n/v/d. pt reports sx resolved. lung sounds cta. resp even and unlabored. son at bedside. call rios within reach.
[2023-05-22 22:20] VITALS: BP 159/55; RESP 16; O2SAT 97
--- NOTE | 2023-05-22 22:21 | PC.NURSE ---
repeat trop drawn. bp improved. pt denies cp/sob/n/v/d. awaiting d/c.
[2023-05-22 22:54] LABS: Troponin-I High Sensitivity 102.7 ng/L (<3.5-35.0)
[2023-05-22] MEDS: Aspirin Enteric Coated 81 MG TABLET.DR PO (23:23)
--- NOTE | 2023-05-22 23:25 | PC.NURSE ---
pt medicated per mar. pt denies cp/sob. nsr on monitor 72 bpm.
--- NOTE | 2023-05-22 23:39 | PM.IMHP ---
History of Present Illness Date of Service: 05/22/23 Chief Complaint: Chest pressure This is a 83-year-old male with pertinent history of essential hypertension, non insulin-dependent diabetes mellitus, TIA, COPD not on home oxygen who presents to the emergency department for evaluation of chest pressure. Patient states he has been having midsternal chest pressure that has been ongoing for the last 6 weeks. It worsens with exertion and takes about 2 hours to subside with rest. No radiation of the pain or association with nausea or sweating. Patient states that sometimes the pain comes from his stomach but no dyspepsia. States he was recently sick with symptoms of upper respiratory infection. No history of CAD/[place] in the past. No fever, chills, palpitations, abdominal pain, changes in urinary or bowel habits. In the emergency department, patient's initial blood pressure found to be elevated. Labs revealed elevated troponin. Cardiology was consulted who recommended heparin drip and admission. Review of Systems Constitutional: Constitutional: Reports fatigue, Reports lethargy and Reports weakness Cardiovascular: Cardiovascular: Reports chest pain and Reports chest pain with activity Respiratory: Respiratory: Reports no additional respiratory complaints Gastrointestinal: Gastrointestinal: Reports no additional gastrointestinal complaints Genitourinary: Genitourinary: Reports no additional male genitourinary complaints Neurologic: Reports weakness Endocrine: Endocrine: Reports fatigue [facility] Medical History Peripheral arterial disease TIA (transient ischemic attack) COPD (chronic obstructive pulmonary disease) Hearing loss Elevated cholesterol HTN (hypertension) Staghorn calculus Nephrolithiasis Enlarged prostate Diabetes mellitus, type II Renal cysts, acquired, bilateral History of kidney stones Rotator cuff impingement syndrome Surgical History History of left-sided carotid endarterectomy Hx of cataract surgery Hx of lithotripsy History of surgery Social History Household Members: None Household Members Other:: 0 Housing: House Are you a primary acute care assistant to a significant other at home: No Do you presently have visiting nurse or other home services: Yes Patient Tobacco Use Status: Current everyday Tobacco user Tobacco use type: Cigarette Cigarette Packs Per Day: 1 Cigarettes Per Day: 20.0 Years Smoked: 60 Smoked in Last 30 Days: Yes e-Cigarette/Vaping Use: Never Used Use of substances other than those prescribed or required for medical reasons: No Advance Directives: Yes Advance Directives on File: Yes Advance Directives Date on File: 09/29/22 service: No Current occupational status: employed Meds Allergies Allergy/AdvReac Type Severity Reaction Status Date / Time No Known Allergies Allergy Verified 03/26/23 08:38 [No Known Allergies*] Active Medications: Current Medications Heparin Sodium (Porcine) (Heparin Sodium,Porcine 5,000 Unit/Ml Vial) 3,100 unit 40 unit/kg (3100 unit) IVPUSH PROTOCOL BOLUS PRN; Protocol PRN Reason: 40 unit/kg - Heparin Protocol Heparin Sodium (Porcine) (Heparin Sodium,Porcine 5,000 Unit/Ml Vial) 6,200 unit 80 unit/kg (6200 unit) IVPUSH PROTOCOL BOLUS PRN; Protocol PRN Reason: 80 unit/kg - Heparin Protocol Heparin Sodium/Sodium Chloride (Heparin Sodium,Porcine/1/2ns) 25,000 unit in 250 mls @ 0 mls/hr IVCONT .Q0M NAYAN; Protocol Home Medications Medication Instructions Recorded Confirmed Last Taken Type glyburide 5 mg tablet 5 mg PO BID 02/17/22 05/22/23 Unknown History metformin 500 mg tablet 500 mg PO BID 02/17/22 05/22/23 Unknown History aspirin 81 mg tablet,delayed 81 mg PO DAILY 09/24/22 05/22/23 09/27/22 History release lisinopril 10 mg tablet 10 mg PO DAILY 05/22/23 05/22/23 Unknown History Physical Exam Vital Signs and Narrative: Vital Signs: Last Vital Signs Temp 98.1 F 05/22/23 15:33 Pulse 82 05/22/23 19:09 Resp 16 05/22/23 22:20 BP 159/55 H 05/22/23 22:20 Pulse Ox 97 05/22/23 22:20 O2 Del Method Room Air 05/22/23 22:20 BMI result Body Mass Index 28.4 Elderly male lying in bed in no distress Neck supple, no JVD Regular rate and rhythm, S1-S2 heard Regular breath sounds bilaterally, no wheezing or crackles appreciated Abdomen soft nontender, no guarding, no rigidity Patient is awake, alert and oriented to self, place, time and person ; no focal motor deficit Psych: Normal mood No pedal edema Results Labs 05/22/23 19:17 05/22/23 19:17 Labs: Laboratory Results - last 24 hr 05/22/23 05/22/23 17:38 19:17 MCV 92.8 MCH 30.9 MCHC 33.3 RDW 13.8 Plt Count 286 MPV 9.9 Immature Gran % (Auto) 1.2 H Neut % (Auto) 54.5 Lymph % (Auto) 28.2 [place] % (Auto) 10.5 Eos % (Auto) 5.1 H Baso % (Auto) 0.5 Lymph # (Auto) 2.3 [place] # (Auto) 0.8 Eos # (Auto) 0.4 Baso # (Auto) 0.0 Abs Immat Gran (auto) 0.10 H Absolute Neuts (auto) 4.4 Absolute Nucleated RBC 0.000 Nucleated RBC % (auto) 0.0 Anion Gap 14 Estim Creat Clear Calc 55.7 Estimated GFR > 60 Random Glucose 106 Calcium 9.8 B-Natriuretic Peptide 53 Lipase 36 Urine Color Yellow Urine Appearance Clear Urine pH 5.5 Ur Specific [place] 1.020 Urine Protein 30 (1+) H Urine Glucose (UA) >=1000 H Urine Ketones Negative Urine Blood Negative Urine Nitrite Negative Ur Leukocyte Esterase Trace H Urine RBC 0-2 Urine WBC 6-10 H Ur Squamous Epith Cells 0-2 Urine Bacteria None Seen Hyaline Casts 0-2 Influenza Type A (PCR) NEGATIVE Influenza Type B (PCR) NEGATIVE RSV RNA Qual (PCR) NEGATIVE SARS-CoV-2 RNA (RT-PCR) NEGATIVE Imaging Radiologist's Impressions: Impressions Chest X-Ray 05/22/23 17:05 IMPRESSION: Unremarkable chest examination. Assessment and Plan (1) Non-ST elevation [place] (NSTEMI): Status: Acute Plan This is a 83-year-old male with pertinent history of essential hypertension, non insulin-dependent diabetes mellitus who presents to the emergency department for evaluation of chest pressure. #. NSTEMI: Will admit patient with cardiac monitoring. Initiated IV heparin. Patient received aspirin in the ER. Consulted Cardiology, appreciate assistance. Obtaining echocardiogram #. Hypertensive emergency: Blood pressure lowered appropriately at the time of my evaluation. Continue to monitor and adjust p.o. antihypertensives. #. Nnf-vdvzhzh-nrxvorahl diabetes mellitus: Initiating Accu-Cheks with sliding scale insulin DVT prophylaxis: Heparin Full code Admit as inpatient and will require two night minimum hospital stay for IV heparin (as above), which is not possible in a lesser acute setting. Specialist consult pending Quality Stroke Does the patient have a stroke diagnosis?: No VTE Prior VTE?: No VTE Risk Level:: Medical - moderate - high VTE Device Contraindication: Treatment Not Indicated VTE Drug Contraindication: N/A - Med Ordered
[2023-05-22 23:59] VITALS: BMI 21.6
[2023-05-23] VITALS (10 sets, daily range): BP systolic 130–184; BP diastolic 54–77; PULSE 63–75; RESP 15–20; TEMP 36.4–36.6; O2SAT 93–98; BMI 21.1
--- NOTE | 2023-05-23 00:35 | PC.NURSE ---
no heparin bolus ordered per protocol. Dr. Mcclellan ordered. Pharmacy notified.
[2023-05-23] MEDS: Heparin Sodium,Porcine 5,000 UNIT/ML VIAL 3500 UNIT IVPUSH (00:52)
[2023-05-23] MEDS: Heparin Sodium,Porcine/1/2NS 25,000 UNIT/250 ML IV.SOLN 7.06 UNIT IVCONT (00:53)
--- NOTE | 2023-05-23 00:55 | PC.NURSE ---
pt/inr lab drawn; ok to start bolus/drip after drawing per Dr. Mcclellan/Pharmacy. results pending. heparin bolus administered and drip initiated with Donna RN as witness. no bruising/petechiae noted of skin. pt educated and verbalizes understanding of plan of care. vss. nsr on monitor. next pt/inr entered to be drawn [phone] (6hours after initiating drip). nad pt resting comfortably. call rios within reach.
[2023-05-23 01:02] LABS: Prothrombin Time 12.2 SEC (11.1-13.3)
[2023-05-23 01:04] LABS: PTT Heparin Drip 33.6 SEC (53-77.9)
--- NOTE | 2023-05-23 07:00 | CA_ITS ---
Transthoracic Echocardiogram Patient (Last, First, Middle): Antolin Perdomo L Gender: Male Date of : 1940 Age: 83 Procedure Date: 05/23/2023 Procedure Type: Transthoracic Echocardiogram Location: [facility] [place] Height: 165.1 cm Weight: 57.15 kg BSA: 1.63 m2 Heart Rate: bpm BP: 174 / 67 mmHg Cab Starter: TO/KEATON Referring MD: Dee Mcclellan MD Obstetrician: Thanh Sifuentes MD Symptoms: NSTEMI Study Quality: Fair/Contrast ECG Rhythm: Sinus Conclusions: - 1. Normal LV ejection fraction 60 65% with impaired relaxation filling pattern with basal inferolateral anterolateral hypokinesis in circumflex territory 2. Normal cardiac valvular Doppler 3. No gross pericardial effusion Findings Procedure Information Contrast agent, definity, is being given per protocol without apparent complications. Left Ventricle Normal left ventricular size, thickness, and systolic function. The visually estimated ejection fraction is between 60-65%. Spectral Doppler is indicative of an impaired relaxation filling pattern. E/E prime ratio is between 8 and 15 consistent with indeterminate filling pressures. There is mild septal asymmetric hypertrophy. Wall Motion Rest Echo Findings The basal anterolateral and basal inferolateral segments are hypokinetic. All other scored wall segments showed normal motion. Right Ventricle Normal right ventricular cavity size and systolic function. Atria Both atria are normal in size. Interatrial shunt cannot be excluded. Aortic Valve The aortic valve structure and function is likely normal. There is no aortic valve stenosis. There is no aortic valve regurgitation. Mitral Valve There is mild anterior mitral leaflet thickening. There is mild mitral annular calcification. There is trace mitral valve regurgitation. There is no mitral valve stenosis. Pulmonic Valve The pulmonic valve is likely normal. Tricuspid Valve Likely normal tricuspid valve structure and function. Tricuspid regurgitation envelope is inadequate for calculation of right ventricular systolic pressure. Normal right atrial pressure. Great Vessels All visible segments of the aorta are normal in size. The pulmonary artery was not well visualized. There is no dilatation of the ascending aorta measuring 3.20 cm. Venous The inferior vena cava is normal in size and collapses greater than 50% with inspiration. Pericardium/Pleural There is no evidence of pericardial effusion. Prior Study Comparison No prior study available for comparison. Measurements 2D Linear Measurements IVSd: 1.39 0.6-0.9/0.6-1.0 cm LVIDd: 3.57 3.9-5.3/4.2-5.9 cm LVIDd Index: 2.19 2.4-3.2/2.2-3.1 cm/m2 LVIDs: 2.62 2.0-3.6 cm LVPWd: 1.05 0.7-1.1 cm LA Diam: 2.70 2.7-3.8/3.0-4.0 cm LAIDs Index: 1.66 1.5-2.3 cm/m2 LV Mass: 178.45 67-162/88-224 g LV Mass Index: 109.48 43-95/49-115 g/m2 LVOT Diam: 2.00 3.0+(-)1.3 cm 2D Systolic Function EF 4C: 63.00 >55% EF 2C: 55.80 >55% EF BiP: 59.80 >55% Mitral Valve MV Pk E: 0.54 MV PK A: 1.01 MV Decel Time: 261.00 E/A: 0.50 E'Lateral: 5.11 E'Medial: 3.70 E/E' Med: 14.50 E/E' Lat: 10.50 PHT: 77.00 MVA PHT: 2.86 Decel [place]: 2.05 Aortic Valve AoV Pk Luis: 1.02 AoV Mn Luis: 0.73 AoV VTI: 0.24 AoV Pk Grad: 4.00 Aov Mn Grad: 2.00 MARY Cont.VTI: 2.34 LVOT LVOT Pk Luis: 0.83 LVOT Mn Luis: 0.51 LVOT VTI: 0.18 LVOT Pk Grad: 3.00 LVOT Mn Grad: 1.00 LVOT Diam: 2.00 LVOT Area: 3.14 Diastolic Function MV Pk E: 0.54 MV Pk A: 1.01 E/A: 0.50 E'Medial: 3.70 E/E' Med: 14.50 E' Laterial: 5.11 E/E' Lat: 10.50 Right Ventricle TAPSE (mm): 19.40 TVS' Luis: 8.81 Tricuspid Valve RA Press: 3.00 Great Vessels Aorta Sinus of Valsalva: 3.16 2.0-3.5 cm Ao Asc: 3.20 2.1-3.4 cm Updated in Other Vendor System with Status of Final Thanh Sifuentes MD electronically signed on 05/23/2023 11:38:58 AM with status of Final
[2023-05-23 07:19] LABS: Hematocrit 39.4 % (42.0-52.0); Hemoglobin 13.1 g/dl (14.0-18.0); Mean Corpuscular HGB Conc 33.2 g/dl (31.0-36.0); Mean Corpuscular Volume 93.1 fL (80.0-98.0); Mean Platelet Volume 9.7 fL (9.4-12.4); Platelet Count 261 X10*3/uL (160-400); Red Blood Count 4.23 X10*6/uL (4.60-5.80); Red Cell Distribution Width 14.1 % (11.0-16.0); White Blood Count 8.6 X10*3/uL (4.8-10.8)
[2023-05-23 07:29] LABS: PTT Heparin Drip 80.7 SEC (53-77.9)
[2023-05-23 07:41] LABS: Anion Gap 13 (12-20); Blood Urea Nitrogen 31 mg/dL (9-16); Calcium 9.2 mg/dL (8.4-10.2); Carbon Dioxide 25 mmol/L (22-29); Chloride 106 mmol/L (96-108); Creatinine Clr Calc Pharmacy 50.9; Estimated Glomerular Filt Rate > 60; Glucose Random 131 mg/dL (60-115); Potassium 4.8 mmol/L (3.3-5.1); Sodium 139 mmol/L (135-145)
[2023-05-23 07:49] LABS: Glucose, Whole Blood 135 mg/dL (60-115)
[2023-05-23 08:04] LABS: Troponin-I High Sensitivity 144.1 ng/L (<3.5-35.0)
--- NOTE | 2023-05-23 08:07 | PHA.MEDREC ---
Pharmacy Consult ? Medication Reconciliation Pharmacy has completed the medication reconciliation. Spoke with patient to confirm medications. He reports trying OTC benadryl, nyquil, and allergy relief medications to try to relieve his symptoms but they did not work for him.
[2023-05-23] MEDS: 0.9 % Sodium Chloride Flush 3 ML SYRINGE IVFLUSH ×2 (08:09→15:10)
[2023-05-23] MEDS: Atorvastatin Calcium 80 MG TABLET PO (08:09)
[2023-05-23] MEDS: lisinopriL 10 MG TABLET PO (08:09)
[2023-05-23] MEDS: Aspirin Enteric Coated 81 MG TABLET.DR PO (08:09)
[2023-05-23] MEDS: Metoprolol Tartrate 12.5 MG HALFTAB PO (08:09)
[2023-05-23 08:13] LABS: Estimated Average Glucose 177 mg/dL; Hemoglobin A1c % 7.8 % (<6.0)
--- NOTE | 2023-05-23 08:24 | MHC.CM.PN ---
CM met with Patient at bedside and addressed IMM with him (original was given to Patient and a copy has been placed on the chart). 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 Home/self care is the goal and CM has initiated and will follow for dc planning. Patient's Son/Jemal is the HCP and the PCP is Dr. Jemal Bustillos.
--- NOTE | 2023-05-23 10:22 | P.DS_ITS ---
DS: Providers Provider Date of Service: 05/23/23 Date of admission: 05/22/23 23:38 Date of discharge: 05/23/23 Primary care physician: Jemal Bustillos MD Consults: 05/22/23 23:37 Consult to Cardiology Routine Consulting Provider: [facility] [place] Cardiovascular Services Reason for consultation: NSTEMI DS: Diagnosis Discharge Diagnosis (1) Non-ST elevation [place] (NSTEMI): Status: Acute DS: Summary Hospital Course Hospital Course: From the history and physical by the admitting hospitalist, Amelia Mcclellan MD, 05/22/23: This is a 83-year-old male with pertinent history of essential hypertension, non insulin-dependent diabetes mellitus, TIA, COPD not on home oxygen who presents to the emergency department for evaluation of chest pressure. Patient states he has been having midsternal chest pressure that has been ongoing for the last 6 weeks. It worsens with exertion and takes about 2 hours to subside with rest. No radiation of the pain or association with nausea or sweating. Patient states that sometimes the pain comes from his stomach but no dyspepsia. States he was recently sick with symptoms of upper respiratory infection. No history of CAD/NE in the past. No fever, chills, palpitations, abdominal pain, changes in urinary or bowel habits. In the emergency department, patient's initial blood pressure found to be elevated. Labs revealed elevated troponin. Cardiology was consulted who recommended heparin drip and admission. Mr Perdomo was admitted with exertional chest pressure suspicious for unstable angina. HsTn-I went from 56 to 103 to 144 ng/L. He was heparinized and given aspirin + atorvastatin + metoprolol + nitroglycerin. Echocardiography showed normal LVEF 60-60% with basal inferolateral anterolateral hypokinesis in the LCX territory. Cardiology was consulted and he was transferred to [facility] for cardiac catheterization. Time Attestation Discharge coordination time: Greater than 30 minutes Quality: Safe Use of Opioids Does Pt have an Active Cancer Diagnosis on the Problem List?: No Quality: Stroke Does the patient have a stroke diagnosis?: No Physical Exam Vital Signs: Vital Signs: Temp Pulse Resp BP Pulse Ox O2 Del Method 97.6 F 70 18 136/59 L 97 Room Air 05/24/23 07:04 05/24/23 07:04 05/24/23 07:04 05/24/23 07:04 05/24/23 07:04 05/24/23 07:04 Body Mass Index 21.1 Gen: in no acute distress HEENT: sclera anicteric, moist mucus membranes Neck: supple Lungs: clear to auscultation bilaterally Heart: regular rate and rhythm, no murmurs Abd: soft, non-tender, non-distended Ext: no edema Skin: warm/well-perfused Neuro: alert and oriented x3, no focal findings Psych: appropriate affect DS: Data Data Completed and Pending Completed studies during hospitalization [Text1]: Laboratory Results WBC 8.6 X10*3/uL (4.8-10.8) 05/23/23 07:04 RBC 4.23 X10*6/uL (4.60-5.80) L 05/23/23 07:04 Hgb 13.1 g/dl (14.0-18.0) L 05/23/23 07:04 Hct 39.4 % (42.0-52.0) L 05/23/23 07:04 MCV 93.1 fL (80.0-98.0) 05/23/23 07:04 MCH 31.0 pg (27.0-33.0) 05/23/23 07:04 MCHC 33.2 g/dl (31.0-36.0) 05/23/23 07:04 RDW 14.1 % (11.0-16.0) 05/23/23 07:04 Plt Count 261 X10*3/uL (160-400) 05/23/23 07:04 MPV 9.7 fL (9.4-12.4) 05/23/23 07:04 Immature Gran % (Auto) 1.2 % (0.0-0.4) H 05/22/23 19:17 Neut % (Auto) 54.5 % (45-73) 05/22/23 19:17 Lymph % (Auto) 28.2 % (20-40) 05/22/23 19:17 [place] % (Auto) 10.5 % (2-11) 05/22/23 19:17 Eos % (Auto) 5.1 % (0-4) H 05/22/23 19:17 Baso % (Auto) 0.5 % (0-2) 05/22/23 19:17 Lymph # (Auto) 2.3 X10*3/uL (1.2-4.9) 05/22/23 19:17 [place] # (Auto) 0.8 X10*3/uL (0.1-1.2) 05/22/23 19:17 Eos # (Auto) 0.4 X10*3/uL (0.0-0.4) 05/22/23 19:17 Baso # (Auto) 0.0 X10*3/uL (0.0-0.2) 05/22/23 19:17 Abs Immat Gran (auto) 0.10 X10*3/uL (0.00-0.03) H 05/22/23 19:17 Absolute Neuts (auto) 4.4 x10*3/uL (2.0-8.3) 05/22/23 19:17 Absolute Nucleated RBC 0.000 X10*3/uL (0.0-0.012) 05/23/23 07:04 Nucleated RBC % (auto) 0.0 /100WBC (0.0-0.2) 05/23/23 07:04 PT 12.1 SEC (11.1-13.3) 05/24/23 06:40 INR 1.0 (0.9-1.1) 05/24/23 06:40 aPTT Heparin Protocol 39.0 SEC (53-77.9) L D 05/24/23 04:47 Sodium 139 mmol/L (135-145) 05/23/23 07:04 Potassium 4.8 mmol/L (3.3-5.1) 05/23/23 07:04 Chloride 106 mmol/L (96-108) 05/23/23 07:04 Carbon Dioxide 25 mmol/L (22-29) 05/23/23 07:04 Anion Gap 13 (12-20) 05/23/23 07:04 BUN 31 mg/dL (9-16) H 05/23/23 07:04 Creatinine 0.86 mg/dL (0.5-1.4) 05/23/23 07:04 Estim Creat Clear Calc 50.9 05/23/23 07:04 Estimated GFR > 60 05/23/23 07:04 POC Glucose 145 mg/dL (60-115) H 05/24/23 07:28 Random Glucose 131 mg/dL (60-115) H 05/23/23 07:04 Estimat Average Glucose 177 mg/dL 05/23/23 07:04 Hemoglobin A1c % 7.8 % (<6.0) H 05/23/23 07:04 Calcium 9.2 mg/dL (8.4-10.2) D 05/23/23 07:04 Troponin I High Sens 144.1 ng/L (<3.5-35.0) H* 05/23/23 07:04 B-Natriuretic Peptide 53 pg/mL (<100) 05/22/23 19:17 Lipase 36 U/L (8-78) 05/22/23 19:17 Urine Color Yellow 05/22/23 19:17 Urine Appearance Clear 05/22/23 19:17 Urine pH 5.5 (5.0-9.0) 05/22/23 19:17 Ur Specific [place] 1.020 (1.005-1.025) 05/22/23 19:17 Urine Protein 30 (1+) mg/dL (Neg-Trace) H 05/22/23 19:17 Urine Glucose (UA) >=1000 mg/dL (Negative) H 05/22/23 19:17 Urine Ketones Negative mg/dL (Negative) 05/22/23 19:17 Urine Blood Negative (Negative) 05/22/23 19:17 Urine Nitrite Negative (Negative) 05/22/23 19:17 Ur Leukocyte Esterase Trace (Negative) H 05/22/23 19:17 Urine RBC 0-2 /HPF (0-2) 05/22/23 19:17 Urine WBC 6-10 /HPF (0-5) H 05/22/23 19:17 Ur Squamous Epith Cells 0-2 /HPF (0-2) 05/22/23 19:17 Urine Bacteria None Seen (None Seen) 05/22/23 19:17 Hyaline Casts 0-2 /LPF (0-2) 05/22/23 19:17 Influenza Type A (PCR) NEGATIVE (Negative) 05/22/23 17:38 Influenza Type B (PCR) NEGATIVE (Negative) 05/22/23 17:38 RSV RNA Qual (PCR) NEGATIVE (Negative) 05/22/23 17:38 SARS-CoV-2 RNA (RT-PCR) NEGATIVE (Negative) 05/22/23 17:38 Impressions Chest X-Ray 05/22/23 17:05 IMPRESSION: Unremarkable chest examination. Discharge Plan Discharge Anticipated Discharge Date/Time: 05/24/23 06:00 Patient Disposition: [facility] Hospital Discharge Diagnosis: NSTEMI Referrals: Jemal Bustillos MD [Primary Care Provider] - 1 Week Discharge Medications: New heparin (porcine) 5,000 unit/mL Solution 2,400 unit IVPUSH PROTOCOL BOLUS PRN (Reason: 40 Unit/Kg - Heparin Protocol) Qty: 1 0RF heparin(porcine) in 0.45% NaCl 25,000 unit/250 mL Parenteral Solution 25,000 unit continuous IV infusion .Q0M Qty: 1 0RF atorvastatin 80 mg Tablet 80 mg PO DAILY Qty: 1 0RF insulin lispro [Admelog U-100 Insulin lispro] 100 unit/mL Solution See Protocol subcut QIDACHS Qty: 1 0RF Protocol: Insulin Correction Scale Less than or equal to 110 ---- Give (units): 0 111 to 150 Give (units): 0 151 to 200 Give (units): 2 201 to 250 Give (units): 4 251 to 300 Give (units): 6 301 to 350 Give (units): 8 Greater than 350 Give (units): 10 Call if Blood Glucose > : 350 heparin (porcine) 5,000 unit/mL Solution 4,700 unit IVPUSH PROTOCOL BOLUS PRN (Reason: 80 Unit/Kg - Heparin Protocol) Qty: 1 0RF metoprolol tartrate 50 mg Tablet 50 mg PO Q12H Qty: 1 0RF Protocol: Hold for SBP/HR < HOLD for SBP < : 90 HOLD for HR < : 60 Nitro-Bid 2 % Ointment 0.5 inch transdermal RQ6H WHILE AWAKE Qty: 1 0RF Continued aspirin 81 mg Tablet,Delayed Release (Dr/Ec) 81 mg PO DAILY lisinopril 10 mg tablet 10 mg PO DAILY Discontinued metformin 1,000 mg tablet 1,000 mg PO BID glyburide 5 mg tablet 10 mg PO DAILY Discharge Orders: Discharge Order (Routine); Ordered 05/24/23 Ordered By: Yamilet Casanova Diet: Diabetic diet Activity on Discharge: As tolerated Stand Alone Forms: Patient Portal Discharge page Care Plan Goals: diagnosis/management of [facility] Health Concerns: NSTEMI Plan of Treatment: transfer to [facility] [place] for cardiac catheterization Assessment: See Discharge Summary.
--- NOTE | 2023-05-23 11:15 | HO.PM.IMPN ---
Subjective Subjective Date of Service: 05/23/23 Interval History: no chest pressure but he hasn't been getting out of bed and the pressure he was having over the last 6 wk was clearly exertional no cough no dyspnea Review of Systems Review of Systems: Yes all other systems are reviewed and are negative Physical Exam Vital Signs: Vital Signs: Last Vital Signs Temp 97.6 F 05/23/23 11:09 Pulse 71 05/23/23 11:09 Resp 18 05/23/23 11:09 BP 176/72 H 05/23/23 11:09 Pulse Ox 95 05/23/23 11:09 O2 Del Method Room Air 05/23/23 11:09 BMI result Body Mass Index 21.1 Gen: in no acute distress HEENT: sclera anicteric, moist mucus membranes Neck: supple Lungs: clear to auscultation bilaterally Heart: regular rate and rhythm, no murmurs Abd: soft, non-tender, non-distended Ext: no edema Skin: warm/well-perfused Neuro: alert and oriented x3, no focal findings Psych: appropriate affect Objective Data Active Medications Acetaminophen (Acetaminophen 325 Mg Tablet) 650 mg PO Q6H PRN PRN Reason: Pain, Mild (Pain Scale 1-3) Aspirin (Aspirin Enteric Coated 81 Mg Tablet.) 81 mg PO DAILY [facility] [place] Last Admin: 05/23/23 08:09 Dose: 81 mg Documented By: BARNEY Atorvastatin Calcium (Atorvastatin Calcium 80 Mg Tablet) 80 mg PO DAILY [facility] [place] Last Admin: 05/23/23 08:09 Dose: 80 mg Documented By: BARNEY Dextrose (Dextrose 50 % 25 Gm/50 Ml Syringe) 25 gm IVPUSH Q15M PRN; Protocol PRN Reason: per Hypoglycemia Standing Ord. Glucose (Glucose Gel 15 Gm Gel..Gram.) 15 gm PO Q15M PRN; Protocol PRN Reason: per Hypoglycemia Standing Ord. Heparin Sodium (Porcine) (Heparin Sodium,Porcine 5,000 Unit/Ml Vial) 2,400 unit 40 unit/kg (2400 unit) IVPUSH PROTOCOL BOLUS PRN; Protocol PRN Reason: 40 unit/kg - Heparin Protocol Heparin Sodium (Porcine) (Heparin Sodium,Porcine 5,000 Unit/Ml Vial) 4,700 unit 80 unit/kg (4700 unit) IVPUSH PROTOCOL BOLUS PRN; Protocol PRN Reason: 80 unit/kg - Heparin Protocol Heparin Sodium/Sodium Chloride (Heparin Sodium,Porcine/1/2ns) 25,000 unit in 250 mls @ 0 mls/hr IVCONT .Q0M [facility]; Protocol Last Titration: 05/23/23 08:06 Dose: 10 units/kg/hr, 5.88 mls/hr Documented By: BARNEY Co-signed By: GENO Insulin Human Lispro (Insulin Lispro 100 Unit/Ml 3 Ml Vial) 0 unit SUBCUT QIDACHS [facility] [place]; Protocol Last Admin: 05/23/23 07:49 Dose: Not Given Documented By: BARNEY Non-Admin Reason: No Insulin Coverage Lisinopril (Lisinopril 10 Mg Tablet) 10 mg PO DAILY [facility] [place]; Protocol Last Admin: 05/23/23 08:09 Dose: 10 mg Documented By: BARNEY Melatonin (Melatonin 3 Mg Tablet) 6 mg PO BEDTIME PRN PRN Reason: Insomnia Metoprolol Tartrate (Metoprolol Tartrate 12.5 Mg Halftab) 12.5 mg PO TID [facility] [place]; Protocol Last Admin: 05/23/23 08:09 Dose: 12.5 mg Documented By: BARNEY Ondansetron HCl (Ondansetron Hcl 4 Mg/2 Ml Vial) 4 mg IVPUSH Q8H PRN PRN Reason: Nausea and Vomiting Sodium Chloride (0.9 % Sodium Chloride Flush 3 Ml Syringe) 3 ml IVFLUSH QSHIFT [facility] [place] Last Admin: 05/23/23 08:09 Dose: 3 ml Documented By: BARNEY Labs 05/23/23 07:04 05/23/23 07:04 Labs: Laboratory Results - last 24 hr 05/22/23 05/22/23 05/23/23 17:38 19:17 00:51 MCV 92.8 MCH 30.9 MCHC 33.3 RDW 13.8 Plt Count 286 MPV 9.9 Immature Gran % (Auto) 1.2 H Neut % (Auto) 54.5 Lymph % (Auto) 28.2 [place] % (Auto) 10.5 Eos % (Auto) 5.1 H Baso % (Auto) 0.5 Lymph # (Auto) 2.3 [place] # (Auto) 0.8 Eos # (Auto) 0.4 Baso # (Auto) 0.0 Abs Immat Gran (auto) 0.10 H Absolute Neuts (auto) 4.4 Absolute Nucleated RBC 0.000 Nucleated RBC % (auto) 0.0 PT 12.2 INR 1.0 aPTT Heparin Protocol 33.6 L Anion Gap 14 Estim Creat Clear Calc 55.7 Estimated GFR > 60 POC Glucose Random Glucose 106 Estimat Average Glucose Hemoglobin A1c % Calcium 9.8 B-Natriuretic Peptide 53 Lipase 36 Urine Color Yellow Urine Appearance Clear Urine pH 5.5 Ur Specific [place] 1.020 Urine Protein 30 (1+) H Urine Glucose (UA) >=1000 H Urine Ketones Negative Urine Blood Negative Urine Nitrite Negative Ur Leukocyte Esterase Trace H Urine RBC 0-2 Urine WBC 6-10 H Ur Squamous Epith Cells 0-2 Urine Bacteria None Seen Hyaline Casts 0-2 Influenza Type A (PCR) NEGATIVE Influenza Type B (PCR) NEGATIVE RSV RNA Qual (PCR) NEGATIVE SARS-CoV-2 RNA (RT-PCR) NEGATIVE 05/23/23 05/23/23 07:04 07:41 MCV 93.1 MCH 31.0 MCHC 33.2 RDW 14.1 Plt Count 261 MPV 9.7 Immature Gran % (Auto) Neut % (Auto) Lymph % (Auto) [place] % (Auto) Eos % (Auto) Baso % (Auto) Lymph # (Auto) [place] # (Auto) Eos # (Auto) Baso # (Auto) Abs Immat Gran (auto) Absolute Neuts (auto) Absolute Nucleated RBC 0.000 Nucleated RBC % (auto) 0.0 PT INR aPTT Heparin Protocol 80.7 H D Anion Gap 13 Estim Creat Clear Calc 50.9 Estimated GFR > 60 POC Glucose 135 H Random Glucose 131 H Estimat Average Glucose 177 Hemoglobin A1c % 7.8 H Calcium 9.2 D B-Natriuretic Peptide Lipase Urine Color Urine Appearance Urine pH Ur Specific [place] Urine Protein Urine Glucose (UA) Urine Ketones Urine Blood Urine Nitrite Ur Leukocyte Esterase Urine RBC Urine WBC Ur Squamous Epith Cells Urine Bacteria Hyaline Casts Influenza Type A (PCR) Influenza Type B (PCR) RSV RNA Qual (PCR) SARS-CoV-2 RNA (RT-PCR) Assessment and Plan (1) Non-ST elevation [place] (NSTEMI): Status: Acute Plan d2 83yo M with HTN, DM2, tobacco abuse presenting with 6 wk of exertional chest pressure, found to have troponin leak NSTEMI - heparin gtt, ASA, atorvastatin, metoprolol tartrate, lisinopril, Cardiology consulted, plan transfer to [facility] [place] for cardiac catheterization tomorrow, TTE pending HTN - lisinopril, metoprolol DM2, A1c 7.8 - cecilia-dose lispro VTE ppx - UFH dispo - plan transfer to [facility] tomorrow In my clinical judgment, the patient requires continued inpatient hospitalization for the following reasons: IV heparin, early invasive strategy Total time managing care of this patient today: 45 minutes. Quality Stroke Does the patient have a stroke diagnosis?: No VTE Prior VTE?: No VTE Risk Level:: Medical - moderate - high VTE Device Contraindication: Treatment Not Indicated VTE Drug Contraindication: N/A - Med Ordered
[2023-05-23 11:41] LABS: Glucose, Whole Blood 207 mg/dL (60-115)
--- NOTE | 2023-05-23 12:08 | PM.CNCAR ---
History of Present Illness History of Present Illness Date of Service: 05/23/23 Requesting physician: Yamilet Casanova Consult reason: other (Acute coronary syndrome) Chief complaint: Weakness Narrative: I was consulted to see Antolin in cardiology consultation today for acute coronary syndrome. Patient is 83-year-old male with prior history of hypertension, diabetes generally in good shape living at home independently. Patient says he suffered from some kind of respiratory illness and was given antibiotics. Subsequently few weeks ago started having intermittent episodes of retrosternal chest pressure starting in the epigastrium radiating up to the retrosternal, felt like pressure in his chest which will last for about 30 minutes. This will be associated with some labored breathing. Symptoms with subside. Then symptoms will happen randomly. Not always with exertion. Patient came to the hospital yesterday because he had more severe chest pressure yesterday which was not relieved and came to the emergency room. When he came to the emergency room with EKG did not show any significant changes except for right bundle-branch block and left anterior fascicular block. There tall R-waves which could represent posterior ischemia or infarct. Patient was then treated and his chest pain resolved. Currently on IV heparin. Troponin have elevated consistent with acute coronary syndrome. Review of Systems Constitutional: Constitutional: Reports no additional constitutional complaints Eyes: Eyes: Reports no additional eye complaints Cardiovascular: Cardiovascular: Reports chest pain at rest, Reports chest pain with activity, Denies leg edema, Denies lightheadedness, Denies Loss of Consciousness, Denies palpitations, Reports dyspnea and Denies orthopnea Respiratory: Respiratory: Reports no additional respiratory complaints and Reports dyspnea Genitourinary: Genitourinary: Reports no additional male genitourinary complaints Musculoskeletal: Musculoskeletal: Reports no additional musculoskeletal complaints Integumentary/Breasts: Skin/Breast: Reports system reviewed and no additional complaints, except as docu Neurologic: Reports system reviewed and no additional complaints, except as documented Psychiatric: Psychiatric: Reports no additional psychiatric complaints Endocrine: Endocrine: Reports no additional endocrine complaints and Denies palpitations PMFSH Past Medical History Medical History Peripheral arterial disease TIA (transient ischemic attack) COPD (chronic obstructive pulmonary disease) Hearing loss Elevated cholesterol HTN (hypertension) Staghorn calculus Nephrolithiasis Enlarged prostate Diabetes mellitus, type II Renal cysts, acquired, bilateral History of kidney stones Rotator cuff impingement syndrome Surgical History Surgical History History of left-sided carotid endarterectomy Hx of cataract surgery Hx of lithotripsy History of surgery Social History Social History Household Members: None Household Members Other:: 0 Housing: House Are you a primary patient care provider to a significant other at home: No Do you presently have visiting nurse or other home services: Yes (pt states occ VNA) Patient Tobacco Use Status: Current everyday Tobacco user Tobacco use type: Cigarette Cigarette Packs Per Day: 1 Cigarettes Per Day: 20.0 Years Smoked: 60 e-Cigarette/Vaping Use: Never Used Advance Directives Date on File: 09/29/22 service: Yes Current occupational status: employed Meds Allergies Allergy/AdvReac Type Severity Reaction Status Date / Time No Known Allergies Allergy Verified 03/26/23 08:38 [No Known Allergies*] Active Medications: Current Medications Acetaminophen (Acetaminophen 325 Mg Tablet) 650 mg PO Q6H PRN PRN Reason: Pain, Mild (Pain Scale 1-3) Aspirin (Aspirin Enteric Coated 81 Mg Tablet.) 81 mg PO DAILY [facility] Last Admin: 05/23/23 08:09 Dose: 81 mg Atorvastatin Calcium (Atorvastatin Calcium 80 Mg Tablet) 80 mg PO DAILY [facility] Last Admin: 05/23/23 08:09 Dose: 80 mg Dextrose (Dextrose 50 % 25 Gm/50 Ml Syringe) 25 gm IVPUSH Q15M PRN; Protocol PRN Reason: per Hypoglycemia Standing Ord. Glucose (Glucose Gel 15 Gm Gel..Gram.) 15 gm PO Q15M PRN; Protocol PRN Reason: per Hypoglycemia Standing Ord. Heparin Sodium (Porcine) (Heparin Sodium,Porcine 5,000 Unit/Ml Vial) 2,400 unit 40 unit/kg (2400 unit) IVPUSH PROTOCOL BOLUS PRN; Protocol PRN Reason: 40 unit/kg - Heparin Protocol Heparin Sodium (Porcine) (Heparin Sodium,Porcine 5,000 Unit/Ml Vial) 4,700 unit 80 unit/kg (4700 unit) IVPUSH PROTOCOL BOLUS PRN; Protocol PRN Reason: 80 unit/kg - Heparin Protocol Heparin Sodium/Sodium Chloride (Heparin Sodium,Porcine/1/2ns) 25,000 unit in 250 mls @ 0 mls/hr IVCONT .Q0M [facility]; Protocol Last Titration: 05/23/23 08:06 Dose: 10 units/kg/hr, 5.88 mls/hr Insulin Human Lispro (Insulin Lispro 100 Unit/Ml 3 Ml Vial) 0 unit SUBCUT QIDACHS [facility]; Protocol Last Admin: 05/23/23 07:49 Dose: Not Given Lisinopril (Lisinopril 10 Mg Tablet) 10 mg PO DAILY [facility]; Protocol Last Admin: 05/23/23 08:09 Dose: 10 mg Melatonin (Melatonin 3 Mg Tablet) 6 mg PO BEDTIME PRN PRN Reason: Insomnia Metoprolol Tartrate (Metoprolol Tartrate 25 Mg Tablet) 25 mg PO Q8H [facility]; Protocol Ondansetron HCl (Ondansetron Hcl 4 Mg/2 Ml Vial) 4 mg IVPUSH Q8H PRN PRN Reason: Nausea and Vomiting Sodium Chloride (0.9 % Sodium Chloride Flush 3 Ml Syringe) [address] [facility] Last Admin: 05/23/23 08:09 Dose: 3 ml Home Medications Medication Instructions Recorded Confirmed Last Taken Type glyburide 5 mg tablet 10 mg PO DAILY 02/17/22 05/23/23 Unknown History aspirin 81 mg tablet,delayed 81 mg PO DAILY 09/24/22 05/22/23 09/27/22 History release lisinopril 10 mg tablet 10 mg PO DAILY 05/22/23 05/22/23 Unknown History metformin 1,000 mg tablet 1,000 mg PO BID 05/23/23 05/23/23 Unknown History Physical Exam Vital Signs: Vital Signs: Last Vital Signs Temp 97.6 F 05/23/23 11:09 Pulse 71 05/23/23 11:09 Resp 18 05/23/23 11:09 BP 168/60 H 05/23/23 11:25 Pulse Ox 95 05/23/23 11:09 O2 Del Method Room Air 05/23/23 11:09 BMI result Body Mass Index 21.1 Const: General: cooperative, comfortable, no acute distress, alert and awake Nutritional Appearance: thin Orientation/consciousness: patient oriented x3 HEENT: Head: Yes normocephalic and Yes atraumatic Neck: Neck: Yes trachea midline, Yes supple and Yes no JVD Resp: Effort & Inspection: normal respiratory effort Auscultation: clear to auscultation bilaterally Cardio: Jugular venous distension: no JVD Palpation: normal PMI Rate: regular rate Rhythm: regular rhythm Heart sounds: S1 normal heart sound present, S2 normal heart sound present, no click, no gallops, no murmurs and no rubs GI: Auscultation: normal bowel sounds Skin: General skin exam: no rashes or lesions noted Neuro: General: patient oriented x3 and no focal motor deficits Extrem: General: Yes no clubbing, cyanosis or edema Psych: Appearance: grossly normal Objective Labs and Meds 05/23/23 07:04 05/23/23 07:04 Lab results: Laboratory Results - last 24 hr 05/22/23 05/22/23 05/22/23 17:38 19:17 22:12 WBC 8.0 RBC 4.44 L Hgb 13.7 L Hct 41.2 L MCV 92.8 MCH 30.9 MCHC 33.3 RDW 13.8 Plt Count 286 MPV 9.9 Immature Gran % (Auto) 1.2 H Neut % (Auto) 54.5 Lymph % (Auto) 28.2 [place] % (Auto) 10.5 Eos % (Auto) 5.1 H Baso % (Auto) 0.5 Lymph # (Auto) 2.3 [place] # (Auto) 0.8 Eos # (Auto) 0.4 Baso # (Auto) 0.0 Abs Immat Gran (auto) 0.10 H Absolute Neuts (auto) 4.4 Absolute Nucleated RBC 0.000 Nucleated RBC % (auto) 0.0 PT INR aPTT Heparin Protocol Sodium 140 Potassium 4.9 Chloride 106 Carbon Dioxide 25 Anion Gap 14 BUN 33 H Creatinine 0.93 Estim Creat Clear Calc 55.7 Estimated GFR > 60 POC Glucose Random Glucose 106 Estimat Average Glucose Hemoglobin A1c % Calcium 9.8 Troponin I High Sens 56.0 H 102.7 H* D B-Natriuretic Peptide 53 Lipase 36 Urine Color Yellow Urine Appearance Clear Urine pH 5.5 Ur Specific [place] 1.020 Urine Protein 30 (1+) H Urine Glucose (UA) >=1000 H Urine Ketones Negative Urine Blood Negative Urine Nitrite Negative Ur Leukocyte Esterase Trace H Urine RBC 0-2 Urine WBC 6-10 H Ur Squamous Epith Cells 0-2 Urine Bacteria None Seen Hyaline Casts 0-2 Influenza Type A (PCR) NEGATIVE Influenza Type B (PCR) NEGATIVE RSV RNA Qual (PCR) NEGATIVE SARS-CoV-2 RNA (RT-PCR) NEGATIVE 05/23/23 05/23/23 05/23/23 00:51 07:04 07:41 WBC 8.6 RBC 4.23 L Hgb 13.1 L Hct 39.4 L MCV 93.1 MCH 31.0 MCHC 33.2 RDW 14.1 Plt Count 261 MPV 9.7 Immature Gran % (Auto) Neut % (Auto) Lymph % (Auto) [place] % (Auto) Eos % (Auto) Baso % (Auto) Lymph # (Auto) [place] # (Auto) Eos # (Auto) Baso # (Auto) Abs Immat Gran (auto) Absolute Neuts (auto) Absolute Nucleated RBC 0.000 Nucleated RBC % (auto) 0.0 PT 12.2 INR 1.0 aPTT Heparin Protocol 33.6 L 80.7 H D Sodium 139 Potassium 4.8 Chloride 106 Carbon Dioxide 25 Anion Gap 13 BUN 31 H Creatinine 0.86 Estim Creat Clear Calc 50.9 Estimated GFR > 60 POC Glucose 135 H Random Glucose 131 H Estimat Average Glucose 177 Hemoglobin A1c % 7.8 H Calcium 9.2 D Troponin I High Sens 144.1 H* B-Natriuretic Peptide Lipase Urine Color Urine Appearance Urine pH Ur Specific [place] Urine Protein Urine Glucose (UA) Urine Ketones Urine Blood Urine Nitrite Ur Leukocyte Esterase Urine RBC Urine WBC Ur Squamous Epith Cells Urine Bacteria Hyaline Casts Influenza Type A (PCR) Influenza Type B (PCR) RSV RNA Qual (PCR) SARS-CoV-2 RNA (RT-PCR) 05/23/23 11:33 WBC RBC Hgb Hct MCV MCH MCHC RDW Plt Count MPV Immature Gran % (Auto) Neut % (Auto) Lymph % (Auto) [place] % (Auto) Eos % (Auto) Baso % (Auto) Lymph # (Auto) [place] # (Auto) Eos # (Auto) Baso # (Auto) Abs Immat Gran (auto) Absolute Neuts (auto) Absolute Nucleated RBC Nucleated RBC % (auto) PT INR aPTT Heparin Protocol Sodium Potassium Chloride Carbon Dioxide Anion Gap BUN Creatinine Estim Creat Clear Calc Estimated GFR POC Glucose 207 H Random Glucose Estimat Average Glucose Hemoglobin A1c % Calcium Troponin I High Sens B-Natriuretic Peptide Lipase Urine Color Urine Appearance Urine pH Ur Specific [place] Urine Protein Urine Glucose (UA) Urine Ketones Urine Blood Urine Nitrite Ur Leukocyte Esterase Urine RBC Urine WBC Ur Squamous Epith Cells Urine Bacteria Hyaline Casts Influenza Type A (PCR) Influenza Type B (PCR) RSV RNA Qual (PCR) SARS-CoV-2 RNA (RT-PCR) EKG as above Imaging Radiologist's impression: Impressions Chest X-Ray 05/22/23 17:05 IMPRESSION: Unremarkable chest examination. Assessment and Plan (1) Non-ST elevation [place] (NSTEMI): Status: Acute Patient present with symptoms highly consistent with myocardial ischemia along with elevated troponins. EKG suggestive of tall R-waves in V1 V2 which could represent posterior ischemia/infarction. Echocardiogram shows preserved LV systolic function. Patient is currently chest pain-free. Blood pressure is not controlled. Agree with management with IV heparin. Continue amlodipine another blood pressure medication. Would add nitropaste 1/2 inch q.6 hours to his regimen and increase metoprolol to 50 mg b.i.d. to reduce myocardial ischemia. Continue high-intensity statin therapy. Continue aspirin therapy. Discussed with patient given his overall good functional status and no other major comorbidities to pursue cardiac catheterization. He is upset that he has to stay in the hospital but kind of agrees. We discussed management plan. If he remains symptom-free will plan for transfer tomorrow to [facility]. Will follow with you Procedures Date of Service Date of Service: 05/23/23
[2023-05-23] MEDS: Metoprolol Tartrate 25 MG TABLET PO ×2 (12:09→18:09)
[2023-05-23] MEDS: Insulin Lispro 100 UNIT/ML 3 ML VIAL SUBCUT ×3 (12:09→21:38)
[2023-05-23 14:38] LABS: PTT Heparin Drip 49.7 SEC (53-77.9)
[2023-05-23] MEDS: Nitroglycerin 2 % Oint 1 GM Packet 0.5 INCH TRANSDERMA ×2 (15:00→21:38)
[2023-05-23] MEDS: Heparin Sodium,Porcine 5,000 UNIT/ML VIAL 2400 UNIT IVPUSH (15:04)
[2023-05-23 15:32] LABS: Glucose, Whole Blood 175 mg/dL (60-115)
[2023-05-23 20:39] LABS: Glucose, Whole Blood 209 mg/dL (60-115)
[2023-05-23 21:25] LABS: PTT Heparin Drip 82.7 SEC (53-77.9)
[2023-05-24] VITALS: BP 150/66; PULSE 64; RESP 18; TEMP 36.2; O2SAT 93
[2023-05-24] MEDS: Metoprolol Tartrate 25 MG TABLET PO ×2 (00:56→06:46)
[2023-05-24] MEDS: 0.9 % Sodium Chloride Flush 3 ML SYRINGE IVFLUSH ×2 (00:56→08:26)
[2023-05-24] MEDS: Heparin Sodium,Porcine/1/2NS 25,000 UNIT/250 ML IV.SOLN 5.88 UNIT IVCONT (00:59)
[2023-05-24 02:56] VITALS: BP 153/69; PULSE 65; RESP 20; TEMP 36.1; O2SAT 92
--- NOTE | 2023-05-24 05:56 | PC.NURSE ---
Pt noted to be having frequent small urinations of 50-75cc overnight. He was bladder scanned post void this AM for 538cc. MD Mcclellan aware and straight cath attempted per Dr. Mcclellan. Pt did not tolerate the cath. No resistance met but pt tensing and clamping down was stopping progress of catheter at the area of the prostate. Pt reporting significant pain even with just the tip of catheter inserted making him unable to cooperate. Unable to drain urine despite gentle thorough attempt. Dr. Mcclellan aware of situation and concern for pt on heparin drip. Plan to defer to primary team for plan as pt otherwise asymptomatic at this time.
[2023-05-24] MEDS: Heparin Sodium,Porcine 5,000 UNIT/ML VIAL 2400 UNIT IVPUSH ×2 (06:14→14:02)
[2023-05-24 07:01] LABS: Prothrombin Time 12.1 SEC (11.1-13.3)
[2023-05-24 07:04] VITALS: BP 136/59; PULSE 70; RESP 18; TEMP 36.4; O2SAT 97
[2023-05-24 07:36] LABS: Glucose, Whole Blood 145 mg/dL (60-115)
[2023-05-24] MEDS: lisinopriL 10 MG TABLET PO (08:25)
[2023-05-24] MEDS: Aspirin Enteric Coated 81 MG TABLET.DR PO (08:25)
[2023-05-24] MEDS: Atorvastatin Calcium 80 MG TABLET PO (08:25)
[2023-05-24] MEDS: Nitroglycerin 2 % Oint 1 GM Packet 0.5 INCH TRANSDERMA (08:26)
[2023-05-24] MEDS: Metoprolol Tartrate 50 MG TABLET PO (08:30)
--- NOTE | 2023-05-24 09:07 | MHC.CM.PN ---
Patient will be transferred to [facility] today.
--- NOTE | 2023-05-24 10:17 | PM.PNCARD ---
Subjective Subjective Date of Service: 05/24/23 Principal diagnosis: Acute coronary syndrome Interval history: Patient has not had any overnight chest pain. No shortness of breath. No significant arrhythmias Review of Systems Constitutional: Reports no additional constitutional complaints Reports system reviewed and no additional complaints, except as documented Cardiovascular: Reports no additional cardiovascular complaints Gastrointestinal: Reports no additional gastrointestinal complaints Genitourinary: Reports no additional male genitourinary complaints Musculoskeletal: Reports no additional musculoskeletal complaints Reports system reviewed and no additional complaints, except as documented Physical Exam Vital Signs: Last Vital Signs Temp 97.6 F 05/24/23 07:04 Pulse 70 05/24/23 07:04 Resp 18 05/24/23 07:04 BP 136/59 L 05/24/23 07:04 Pulse Ox 97 05/24/23 07:04 O2 Del Method Room Air 05/24/23 07:04 BMI result Body Mass Index 21.1 Const General: cooperative, comfortable, no acute distress, alert and awake Nutritional Appearance: thin Orientation/consciousness: patient oriented x3 HEENT Head: Yes normocephalic and Yes atraumatic Neck Neck: Yes trachea midline, Yes supple and Yes no JVD Resp Effort & Inspection: normal respiratory effort Auscultation: clear to auscultation bilaterally Cardio Jugular venous distension: no JVD Palpation: normal PMI Rate: regular rate Rhythm: regular rhythm Heart sounds: S1 normal heart sound present, S2 normal heart sound present, no click, no gallops, no murmurs and no rubs GI Auscultation: normal bowel sounds Skin General skin exam: no rashes or lesions noted Neuro General: patient oriented x3 and no focal motor deficits Extrem General: Yes no clubbing, cyanosis or edema Psych Appearance: grossly normal Objective Labs and Meds 05/23/23 07:04 05/23/23 07:04 Lab results: Laboratory Results - last 24 hr 05/23/23 05/23/23 05/23/23 11:33 14:13 15:27 PT INR aPTT Heparin Protocol 49.7 L D POC Glucose 207 H 175 H 05/23/23 05/23/23 05/24/23 20:33 21:00 04:47 PT INR aPTT Heparin Protocol 82.7 H D 39.0 L D POC Glucose 209 H 05/24/23 05/24/23 06:40 07:28 PT 12.1 INR 1.0 aPTT Heparin Protocol POC Glucose 145 H Progress Note: A&P Assessment and plan (1) Non-ST elevation [place] (NSTEMI): Status: Acute Assessment and Plan: Patient with acute coronary syndrome with high risk features elevated troponins, prolonged chest pain. Patient is currently chest pain-free. Will transfer to [facility] for cardiac catheterization. Patient is agreeable. Discussed with him the risks, benefits, alternatives. Continue IV heparin. Continue metoprolol, amlodipine, nitropaste. Continue high intensity statin therapy and aspirin therapy. Will follow with him as outpatient Time Spent With Patient Time: Total time managing care of this patient today ____ minutes. Progress Note: Quality Stroke Does the patient have a stroke diagnosis?: No Procedures Date of Service Date of Service: 05/24/23
[2023-05-24 11:11] VITALS: BP 130/57; PULSE 64; RESP 18; TEMP 36.3; O2SAT 96
[2023-05-24 11:30] LABS: Glucose, Whole Blood 215 mg/dL (60-115)
--- NOTE | 2023-05-24 11:54 | P.PNIM_ITS ---
Subjective Subjective Date of Service: 05/24/23 Interval History: no chest pain awaiting bed at [facility] Review of Systems Review of Systems: Yes all other systems are reviewed and are negative Physical Exam 2 Vital Signs: Vital Signs: Last Vital Signs Temp 97.3 F 05/24/23 11:11 Pulse 64 05/24/23 11:11 Resp 18 05/24/23 11:11 BP 130/57 L 05/24/23 11:11 Pulse Ox 96 05/24/23 11:11 O2 Del Method Room Air 05/24/23 11:11 BMI result Body Mass Index 21.1 Gen: in no acute distress HEENT: sclera anicteric, moist mucus membranes Neck: supple Lungs: clear to auscultation bilaterally Heart: regular rate and rhythm, no murmurs Abd: soft, non-tender, non-distended Ext: no edema Skin: warm/well-perfused Neuro: alert and oriented x3, no focal findings Psych: appropriate affect Objective Data Active Medications Acetaminophen (Acetaminophen 325 Mg Tablet) 650 mg PO Q6H PRN PRN Reason: Pain, Mild (Pain Scale 1-3) Aspirin (Aspirin Enteric Coated 81 Mg Tablet.) 81 mg PO DAILY [facility] Last Admin: 05/24/23 08:25 Dose: 81 mg Documented By: CORRIE Atorvastatin Calcium (Atorvastatin Calcium 80 Mg Tablet) 80 mg PO DAILY [facility] Last Admin: 05/24/23 08:25 Dose: 80 mg Documented By: CORRIE Dextrose (Dextrose 50 % 25 Gm/50 Ml Syringe) 25 gm IVPUSH Q15M PRN; Protocol PRN Reason: per Hypoglycemia Standing Ord. Glucose (Glucose Gel 15 Gm Gel..Gram.) 15 gm PO Q15M PRN; Protocol PRN Reason: per Hypoglycemia Standing Ord. Heparin Sodium (Porcine) (Heparin Sodium,Porcine 5,000 Unit/Ml Vial) 2,400 unit 40 unit/kg (2400 unit) IVPUSH PROTOCOL BOLUS PRN; Protocol PRN Reason: 40 unit/kg - Heparin Protocol Last Admin: 05/24/23 06:14 Dose: 2,400 unit Documented By: VANESSA Heparin Sodium (Porcine) (Heparin Sodium,Porcine 5,000 Unit/Ml Vial) 4,700 unit 80 unit/kg (4700 unit) IVPUSH PROTOCOL BOLUS PRN; Protocol PRN Reason: 80 unit/kg - Heparin Protocol Heparin Sodium/Sodium Chloride (Heparin Sodium,Porcine/1/2ns) 25,000 unit in 250 mls @ 0 mls/hr IVCONT .Q0M [facility]; Protocol Last Titration: 05/24/23 06:15 Dose: 12 units/kg/hr, 7.06 mls/hr Documented By: VANESSA Co-signed By: VISHNU Insulin Human Lispro (Insulin Lispro 100 Unit/Ml 3 Ml Vial) 0 unit SUBCUT QIDACHS [facility]; Protocol Last Admin: 05/24/23 08:11 Dose: Not Given Documented By: CORRIE Non-Admin Reason: No Insulin Coverage Lisinopril (Lisinopril 10 Mg Tablet) 10 mg PO DAILY [facility]; Protocol Last Admin: 05/24/23 08:25 Dose: 10 mg Documented By: CORRIE Melatonin (Melatonin 3 Mg Tablet) 6 mg PO BEDTIME PRN PRN Reason: Insomnia Metoprolol Tartrate (Metoprolol Tartrate 50 Mg Tablet) 50 mg PO Q12H [facility]; Protocol Last Admin: 05/24/23 08:30 Dose: 50 mg Documented By: CORRIE Nitroglycerin (Nitroglycerin 2 % Oint 1 Gm Packet) 0.5 inch TRANSDERMA RQ6H WHILE AWAKE [facility] Last Admin: 05/24/23 08:26 Dose: 0.5 inch Documented By: CORRIE Ondansetron HCl (Ondansetron Hcl 4 Mg/2 Ml Vial) 4 mg IVPUSH Q8H PRN PRN Reason: Nausea and Vomiting Sodium Chloride (0.9 % Sodium Chloride Flush 3 Ml Syringe) 3 ml IVFLUSH QSHIFT [facility] Last Admin: 05/24/23 08:26 Dose: 3 ml Documented By: CORRIE Labs 05/23/23 07:04 05/23/23 07:04 Labs: Laboratory Results - last 24 hr 05/23/23 05/23/23 05/23/23 14:13 15:27 20:33 PT INR aPTT Heparin Protocol 49.7 L D POC Glucose 175 H 209 H 05/23/23 05/24/23 05/24/23 21:00 04:47 06:40 PT 12.1 INR 1.0 aPTT Heparin Protocol 82.7 H D 39.0 L D POC Glucose 05/24/23 05/24/23 07:28 11:27 PT INR aPTT Heparin Protocol POC Glucose 145 H 215 H Microbiology Microbiology Results: Microbiology 05/22/23 19:17 Urine Culture - Preliminary Urine clean catch - Urine porter top Gram positive cocci Assessment and Plan (1) Non-ST elevation [place] (NSTEMI): Status: Acute Plan d3 83yo M with HTN, DM2, tobacco abuse presenting with 6 wk of exertional chest pressure, found to have troponin leak NSTEMI - heparin gtt, ASA, atorvastatin, metoprolol tartrate, lisinopril, Cardiology consulted, plan transfer to [facility] for cardiac catheterization today, TTE 05/23 showed: 1. Normal LV ejection fraction 60 65% with impaired relaxation filling pattern with basal inferolateral anterolateral hypokinesis in circumflex territory 2. Normal cardiac valvular Doppler 3. No gross pericardial effusion a HTN - lisinopril, metoprolol DM2, A1c 7.8 - cecilia-dose lispro VTE ppx - UFH dispo - plan transfer to [facility] In my clinical judgment, the patient requires continued inpatient hospitalization for the following reasons: IV heparin, early invasive strategy Total time managing care of this patient today: 45 minutes. Quality Stroke Does the patient have a stroke diagnosis?: No VTE Prior VTE?: No VTE Risk Level:: Medical - moderate - high VTE Device Contraindication: Treatment Not Indicated VTE Drug Contraindication: N/A - Med Ordered
[2023-05-24 12:32] LABS: PTT Heparin Drip 38.7 SEC (53-77.9)
[2023-05-24] MEDS: Insulin Lispro 100 UNIT/ML 3 ML VIAL SUBCUT (14:04)
[2023-05-24 14:57] VITALS: BP 130/51; PULSE 69; RESP 18; TEMP 36.4; O2SAT 96
[2023-05-24 15:40] LABS: Glucose, Whole Blood 109 mg/dL (60-115)
== END 2023-05-24 18:27 | disposition short-term general hospital (02) | DRG 281 ==
LOC: HO.ED 23:53 → HO.EDOVER 05-23 00:24 → HO.IMC 05-23 03:52
PROVIDERS: Physician Assistant Medical; Admitting Provider Student in an Organized Health Care Education/Training Program; Emergency Provider Emergency Medicine; PCP Internal Medicine Medical Oncology; Visit Provider Family Medicine
DX: I21.4 Non-ST elevation (NSTEMI) myocardial infarction (principal); I16.1 Hypertensive emergency; F17.210 Nicotine dependence, cigarettes, uncomplicated; I10 Essential (primary) hypertension; E11.9 Type 2 diabetes mellitus without complications; J44.9 Chronic obstructive pulmonary disease, unspecified; Z86.73 Personal history of transient ischemic attack (TIA), and cerebral infarction without residual deficits; Z20.822 Contact with and (suspected) exposure to COVID-19; Z71.6 Tobacco abuse counseling; Z79.4 Long term (current) use of insulin; Z79.82 Long term (current) use of aspirin; Z79.899 Other long term (current) drug therapy
CPT/HCPCS: 0241U; 36415; 71046; 80048; 81001; 82947; 83036; 83690; 83880; 84484; 85025; 85027; 85610; 85730; 87086; 87088; 87186; 93005; 93306; 99285; J1644; Q9957

== ENCOUNTER → 2023-05-22 17:57 | Outpatient (BNV) | payer MEDICARE, MEDICAID, SELFPAY | PROVIDERS: Admitting Provider Student in an Organized Health Care Education/Training Program; Emergency Provider Emergency Medicine; PCP Internal Medicine Medical Oncology; Visit Provider Internal Medicine Cardiovascular Disease | DX: I45.2 Bifascicular block (principal); R94.31 Abnormal electrocardiogram [ECG] [EKG] | CPT/HCPCS: 93010 ==

== ENCOUNTER 2023-05-22 23:38 | Outpatient (BNV) | payer MEDICARE, MEDICAID, SELFPAY | END 2023-05-23 07:00 | PROVIDERS: Admitting Provider Student in an Organized Health Care Education/Training Program; Emergency Provider Emergency Medicine; PCP Internal Medicine Medical Oncology; Visit Provider Internal Medicine Cardiovascular Disease | DX: I21.4 Non-ST elevation (NSTEMI) myocardial infarction (principal) | CPT/HCPCS: 93306 ==

== ENCOUNTER → 2023-05-22 23:38 | Outpatient (BNV) | payer MEDICARE, MEDICAID, SELFPAY | PROVIDERS: Admitting Provider Student in an Organized Health Care Education/Training Program; Emergency Provider Emergency Medicine; PCP Internal Medicine Medical Oncology; Visit Provider Student in an Organized Health Care Education/Training Program | DX: I21.4 Non-ST elevation (NSTEMI) myocardial infarction (principal) | CPT/HCPCS: 99222; 99232; 99239 ==

== ENCOUNTER → 2023-05-22 23:38 | Outpatient (BNV) | payer MEDICARE, MEDICAID, SELFPAY | PROVIDERS: Admitting Provider Student in an Organized Health Care Education/Training Program; Emergency Provider Emergency Medicine; PCP Internal Medicine Medical Oncology; Visit Provider Internal Medicine Cardiovascular Disease | DX: I21.4 Non-ST elevation (NSTEMI) myocardial infarction (principal) | CPT/HCPCS: 99222; 99233 ==

== ENCOUNTER 2023-06-10 09:00 | Outpatient (AMB) | payer MEDICARE, MEDICAID, SELFPAY ==
[2023-06-10 09:16] VITALS: BP 160/60; BMI 21.3
--- NOTE | 2023-06-10 09:16 | A.OFFVIS_ITS ---
Intake Vital Signs 06/10/23 09:16 Height 5 ft 5 in Weight 128 lb 4.944 oz BMI 21.3 BP 160/60 H Blood Pressure Location Lt brachial Position Sitting Intake Visit Reasons: 2 wk s/p cath NS Allergies No Known Allergies [No Known Allergies*] Allergy (Verified 06/10/23 09:19) Medication List - Last Reconciled 06/10/23 by Yeimi Ruelas, PREMA-C aspirin 81 mg PO DAILY lisinopril 10 mg PO DAILY ticagrelor (Brilinta) 90 mg PO BID HPI 2 wk s/p cath NS HPI Details Antolin is an 83-year-old male past medical history of hypertension, hyperlipidemia, diabetes, peripheral vascular disease, COPD, smoking who was recently admitted to [facility] with chest discomfort and ruled in for ACS. He was transported to [facility] and underwent cardiac catheterization showing severe 2 vessel CAD and had PCI. Post PCI was started on aspirin, Brilinta and metoprolol. He now presents for follow-up. Today he reports that he had to stop metoprolol as it was upsetting his stomach. He believes it causes bleeding and increased gas production. He has not had any visual signs of bleeding, he describes his stomach as bloating after the medication. His blood pressure had been elevated and he was recently started on lisinopril by his PCP. He has not had any recurrent chest discomfort. He tells me that prior to presenting to the hospital last month he had been getting discomfort in his mid chest region for a few months and it was worse on the day of his arrival. Currently no chest discomfort at rest or with activity. No shortness of breath, palpitations, presyncope, syncope, PND, orthopnea or edema. His right radial catheterization site is well healed and feels good. His right groin also is reported as feeling good. He takes all his meds as directed. [facility] Medical History (Updated 06/10/23 @ 11:03 by Yeimi Ruelas NP-C) Peripheral arterial disease TIA (transient ischemic attack) COPD (chronic obstructive pulmonary disease) Hearing loss Elevated cholesterol HTN (hypertension) Staghorn calculus Nephrolithiasis Enlarged prostate Diabetes mellitus, type II Renal cysts, acquired, bilateral History of kidney stones Rotator cuff impingement syndrome Surgical History (Updated 06/10/23 @ 11:54 by Yeimi Ruelas NP-C) History of left-sided carotid endarterectomy Hx of cataract surgery Hx of lithotripsy History of surgery Social History Household Members: None Household Members Other:: 0 Housing: House Are you a primary resident care manager to a significant other at home: No Do you presently have visiting nurse or other home services: Yes (pt states occ VNA) Patient Tobacco Use Status: Current everyday Tobacco user Tobacco use type: Cigarette Cigarette Packs Per Day: 1 Cigarettes Per Day: 20.0 Years Smoked: 60 e-Cigarette/Vaping Use: Never Used Advance Directives Date on File: 09/29/22 service: Yes Current occupational status: employed Review of Systems Const All systems reviewed & are unremarkable except as noted in HPI and below ENT Denies dizziness Card Denies chest pain, Denies chest pain at rest, Denies chest pain with activity, Denies rapid heart rate, Denies pedal edema, Denies edema, Denies leg edema, Denies lightheadedness, Denies palpitations, Denies dyspnea, Denies dyspnea on exertion and Denies orthopnea Resp Denies cough, Denies dyspnea and Denies dyspnea on exertion GI Denies hematochezia and Denies change in stool character Musc Details: right radial and right groin cath sites feeling good Denies abnormal gait, Denies limited range of motion, Denies muscle cramps, Denies muscle weakness, Denies numbness, Denies radiating pain into limb, Denies stiffness and Denies tingling Neuro Denies abnormal gait, Denies dizziness, Denies numbness and Denies tingling Endo Denies palpitations Physical Exam Vital Signs: Last Vital Signs BP 160/60 H 06/10/23 09:16 BMI result Body Mass Index 21.3 Const General: cooperative, healthy appearing, comfortable and no acute distress Orientation/consciousness: patient oriented x3 Neck Neck: Yes normal visual inspection and Yes no JVD Resp Effort & Inspection: normal respiratory effort Auscultation: clear to auscultation bilaterally, no crackles, no rales, no rhonchi and no wheezes Cardio Jugular venous distension: no JVD Rate: regular rate Rhythm: regular rhythm Heart sounds: S1 normal heart sound present, S2 normal heart sound present, no murmurs and no rubs Neuro General: patient oriented x3 Extrem Other: right radial cath site well healed - easily palpable right radial pulse, hand assessment normal. Right groin site well healed, easily palpable right femoral pulse, no bruit, right leg assessment normal General: Yes normal to inspection and No no pedal edema Psych Appearance: grossly normal Mental Status: mental status grossly normal Speech and movement: Normal speech and movement present Assessment & Plan Assessment & Plan (1) Non-ST elevation MT (NSTEMI): Code(s): I21.4 - Non-ST elevation (NSTEMI) myocardial infarction Plan: Patient presented to [facility] on 05/22/2023 with chest discomfort. He ruled in for ACS and was started on appropriate medications. Echocardiogram showed EF 60-65%, basal inferior lateral and anterior lateral hypokinesis, circumflex territory. He was transferred to [facility] and underwent cardiac catheterization on 05/25/2023 showing severe two-vessel CAD. He had 2 stents placed to the proximal left circumflex and had balloon angioplasty to the proximal RCA. He had catheterization access sites in the right radial and right femoral arteries both of which are healing well without noted complications. Since that time he has had no recurrent chest discomfort. He describes side effect from metoprolol and has since stopped that medication. He declines restart as he believes it makes his stomach have gas and bleed . He denies having any hemoptysis, hematemesis, or visible blood in stool. He is taking aspirin indefinitely. He is on Brilinta 90 mg b.i.d. and reports strict compliance. Atorvastatin had been on his list, currently off. Will recent to his pharmacy. His blood pressure today is elevated at 160/60, recheck done by me was actually 160/80. He is on lisinopril 10 mg daily. Will increase his lisinopril up to 20 mg daily. He has PCP visit on 06/14/2022. Blood pressure will be rechecked at that time. Orders placed for blood work, CMP and lipids. Should be obtained within 1-2 weeks. Signs and symptoms of angina reviewed. He declines cardiac rehab. Cardiology follow-up in 3 months, sooner if needed (2) CAD (coronary artery disease): Code(s): I25.10 - Atherosclerotic heart disease of [place] coronary artery without angina pectoris Plan: As above (3) S/P cardiac cath: Comment: 05/25/2023, lad proximal 60% stenosis, mid 50% stenosis, D1 70% stenosis, left circumflex proximal 90% stenosis, to ALVAREZ placed with residual 0% stenosis, OM1 50% stenosis RCA proximal 90% stenosis, balloon angioplasty done with residual 0% stenosi Code(s): Z98.890 - Other specified postprocedural states Plan: As above (4) Stented coronary artery: Code(s): Z95.5 - Presence of coronary angioplasty implant and graft Plan: 2 ALVAREZ to the left circumflex (5) Hyperlipidemia: Code(s): E78.5 - Hyperlipidemia, unspecified Plan: [place] LDL goal less than 70. Patient was on atorvastatin 80 mg daily. He does not have this med active on his list today. Will recent to the pharmacy. Fasting lipids ordered, to be done in 2-3 months. (6) HTN (hypertension): Code(s): I10 - Essential (primary) hypertension Plan: As above (7) Hospital discharge follow-up: Code(s): Z09 - Encounter for follow-up examination after completed treatment for conditions other than malignant neoplasm Plan: NSTEMI admission Plan Time spent on chart review, documentation, interview and assessment Orders: Orders Lipid Panel 2 Months I25.10 - Atherosclerotic heart disease of [place] coronary artery without angina pectoris Comprehensive Met. Panel Today I10 - Essential (primary) hypertension Medications: New lisinopril 20 mg PO DAILY 30 tabs 5RF atorvastatin Cholesterol-lowering medication 80 mg PO BEDTIME 30 tabs 5RF Coding Level of Care Code Est Pt Level 4 (05695) Diagnoses Non-ST elevation MT (NSTEMI) I21.4 CAD (coronary artery disease) I25.10 S/P cardiac cath Z98.890 Stented coronary artery Z95.5 Hyperlipidemia E78.5 HTN (hypertension) I10 Hospital discharge follow-up Z09 Time Spent (min) 30
== END 2023-06-10 09:55 | disposition home or self-care (01) ==
PROVIDERS: PCP Internal Medicine Medical Oncology; Visit Provider Nurse Practitioner Family
DX: I21.4 Non-ST elevation (NSTEMI) myocardial infarction (principal); I25.10 Atherosclerotic heart disease of native coronary artery without angina pectoris; Z98.890 Other specified postprocedural states; Z95.5 Presence of coronary angioplasty implant and graft; E78.5 Hyperlipidemia, unspecified; I10 Essential (primary) hypertension; Z09 Encounter for follow-up examination after completed treatment for conditions other than malignant neoplasm
CPT/HCPCS: 99214

== ENCOUNTER → 2023-06-10 09:00 | Outpatient (BNVA) | payer MEDICARE, MEDICAID, SELFPAY | PROVIDERS: PCP Internal Medicine Medical Oncology; Visit Provider Nurse Practitioner Family | DX: Z09 Encounter for follow-up examination after completed treatment for conditions other than malignant neoplasm (principal); I21.4 Non-ST elevation (NSTEMI) myocardial infarction; I25.10 Atherosclerotic heart disease of native coronary artery without angina pectoris; I10 Essential (primary) hypertension; E78.5 Hyperlipidemia, unspecified; Z95.5 Presence of coronary angioplasty implant and graft; Z98.890 Other specified postprocedural states | CPT/HCPCS: 99212 ==

== ENCOUNTER 2023-06-22 10:19 | Outpatient (REF) | payer MEDICARE, MEDICAID, SELFPAY ==
[2023-06-22 10:47] LABS: MANUAL DIFF FLAG NO
[2023-06-22 11:17] LABS: Basophils Percent Auto 0.4 % (0-2); Eosinophils Absolute Auto 0.1 X10*3/uL (0.0-0.4); Eosinophils Percent Auto 1.7 % (0-4); Hematocrit 36.8 % (42.0-52.0); Imm Gran Abs Auto 0.03 X10*3/uL (0.00-0.03); Imm Gran Pct Auto 0.4 % (0.0-0.4); Lymphocytes Percent Auto 24.2 % (20-40); Mean Corpuscular HGB Conc 32.6 g/dl (31.0-36.0); Mean Corpuscular Hemoglobin 31.5 pg (27.0-33.0); Mean Corpuscular Volume 96.6 fL (80.0-98.0); Mean Platelet Volume 10.1 fL (9.4-12.4); Monocytes Absolute Auto 0.7 X10*3/uL (0.1-1.2); Monocytes Percent Auto 9.1 % (2-11); Neutrophils Absolute Auto 5.2 x10*3/uL (2.0-8.3); Neutrophils Percent Auto 64.2 % (45-73); Platelet Count 315 X10*3/uL (160-400); Red Blood Count 3.81 X10*6/uL (4.60-5.80); Red Cell Distribution Width 13.9 % (11.0-16.0); White Blood Count 8.1 X10*3/uL (4.8-10.8)
[2023-06-22 11:54] LABS: Erythrocyte Sedimentation Rate 38 MM/HR (0-15)
[2023-06-22 12:34] LABS: Alanine Aminotransferase 22 U/L (0-40); Albumin Level 3.9 g/dL (3.5-5.0); Alkaline Phosphatase 73 U/L (39-117); Amylase 22 U/L (28-100); Anion Gap 14 (12-20); Aspartate Amino Transferase 20 U/L (5-37); Bilirubin Total 0.2 mg/dL (0.0-1.0); Blood Urea Nitrogen 25 mg/dL (9-16); Carbon Dioxide 22 mmol/L (22-29); Chloride 109 mmol/L (96-108); Estimated Glomerular Filt Rate > 60; Glucose Random 204 mg/dL (60-115); Lipase 13 U/L (8-78); Potassium 5.7 mmol/L (3.3-5.1); Sodium 139 mmol/L (135-145); Total Protein 6.9 g/dL (6.5-8.0)
== END 2023-06-22 10:20 | disposition home or self-care (01) ==
LOC: HO.LAB 10:19
PROVIDERS: PCP Internal Medicine Medical Oncology; Visit Provider Internal Medicine Medical Oncology
DX: E11.9 Type 2 diabetes mellitus without complications (principal); E78.5 Hyperlipidemia, unspecified; I25.10 Atherosclerotic heart disease of native coronary artery without angina pectoris; R10.31 Right lower quadrant pain
CPT/HCPCS: 36415; 80053; 82150; 83690; 85025; 85652

== ENCOUNTER 2023-06-24 09:57 | Outpatient (REF) | payer MEDICARE, MEDICAID, SELFPAY ==
--- NOTE | ~2023-06-24 | FL_ITS ---
EXAMINATION: XR FLUOROSCOPY UPPER GI WITH AIR CLINICAL INFORMATION: Nausea, early satiety. COMPARISON: None TECHNIQUE: Fluoroscopic air contrast upper GI examination was performed utilizing standard techniques with thin and thick barium and effervescent granules. Numerous spot images were obtained. FINDINGS: Images of the oropharynx and hypopharynx demonstrate normal swallow mechanism with normal epiglottic inversion and soft palate elevation. No tracheal penetration, glottic or subglottic aspiration identified. No nasopharyngeal reflux present. Hypopharyngeal structures appear normal without evidence of mass or diverticulum. There is ballooning of hypopharynx with associated mild cricopharyngeal achalasia. Dual and single contrast images of the esophagus demonstrate normal caliber, contour, and mucosal pattern. The GE junction is somewhat narrowed, without irregularity, most likely representing a mild component of achalasia. There is a tiny traction type diverticulum in the upper one third, likely not clinically significant. There is to and fro motion of the barium column. Extensive nonpropulsive tertiary contractions are noted throughout the esophagus. A small type I hiatal hernia is present. No significant gastroesophageal reflux was seen during the course of the examination and on reflux views. Dual contrast and single contrast images of the stomach demonstrated a normal contour. The gastric mucosal folds have a thickened appearance, likely representing gastritis. No evidence of mass, or ulceration. Contrast freely passed into the gastric antrum and duodenal bulb without delay. Single and air-contrast images of the duodenal bulb demonstrate no abnormality. The duodenal sweep has a normal appearance, course, and mucosal fold appearance. The imaged proximal jejunum has a thickened fold pattern. FLUOROSCOPY TIME: 6.0 minutes Number of Spot Images: 7 Number of Cine: 13 DOSE AREA PRODUCT: 2069 uGy-m2 (microgray-meter squared) FL/FL upper GI w air IMPRESSION: 1. Ballooning of the hypopharynx with associated mild cricopharyngeal achalasia. 2. Esophageal dysmotility. 3. Narrowed GE junction, query a mild degree of achalasia. 4. Thickened gastric mucosal folds likely representing gastritis. 5. Small type I hiatal hernia. 6. Abnormal appearing proximal small bowel/jejunum, with apparent thickening of the folds. Correlate for proximal enteritis. This procedure was performed by Eben Young PA-C, and supervised by Dr. Go
== END 2023-06-24 09:58 | disposition home or self-care (01) ==
LOC: HO.XRAY 09:57
PROVIDERS: PCP Internal Medicine Medical Oncology; Visit Provider Internal Medicine Medical Oncology
DX: R68.81 Early satiety (principal); R11.0 Nausea; R04.2 Hemoptysis; I25.10 Atherosclerotic heart disease of native coronary artery without angina pectoris; F17.200 Nicotine dependence, unspecified, uncomplicated
CPT/HCPCS: 74246

== ENCOUNTER → 2023-06-24 10:00 | Outpatient (BNV) | payer MEDICARE, MEDICAID, SELFPAY | PROVIDERS: PCP Internal Medicine Medical Oncology; Visit Provider Radiology Diagnostic Radiology | DX: R11.0 Nausea (principal) | CPT/HCPCS: 74246 ==

== ENCOUNTER 2023-07-06 07:15 | Outpatient (REF) | payer MEDICARE, MEDICAID, SELFPAY ==
[2023-07-06 07:36] LABS: MANUAL DIFF FLAG NO
[2023-07-06 08:17] LABS: Basophils Percent Auto 0.3 % (0-2); Eosinophils Absolute Auto 0.3 X10*3/uL (0.0-0.4); Eosinophils Percent Auto 3.3 % (0-4); Hematocrit 37.7 % (42.0-52.0); Hemoglobin 12.4 g/dl (14.0-18.0); Imm Gran Abs Auto 0.05 X10*3/uL (0.00-0.03); Imm Gran Pct Auto 0.5 % (0.0-0.4); Lymphocytes Absolute Auto 2.4 X10*3/uL (1.2-4.9); Lymphocytes Percent Auto 24.3 % (20-40); Mean Corpuscular HGB Conc 32.9 g/dl (31.0-36.0); Mean Corpuscular Hemoglobin 31.2 pg (27.0-33.0); Mean Platelet Volume 10.4 fL (9.4-12.4); Monocytes Absolute Auto 0.8 X10*3/uL (0.1-1.2); Monocytes Percent Auto 7.7 % (2-11); Neutrophils Absolute Auto 6.2 x10*3/uL (2.0-8.3); Neutrophils Percent Auto 63.9 % (45-73); Platelet Count 357 X10*3/uL (160-400); Red Blood Count 3.97 X10*6/uL (4.60-5.80); Red Cell Distribution Width 13.5 % (11.0-16.0); White Blood Count 9.7 X10*3/uL (4.8-10.8)
[2023-07-06 08:21] LABS: Estimated Average Glucose 177 mg/dL; Hemoglobin A1c % 7.8 % (<6.0)
[2023-07-06 08:37] LABS: Alanine Aminotransferase 21 U/L (0-40); Alkaline Phosphatase 92 U/L (39-117); Anion Gap 15 (12-20); Aspartate Amino Transferase 17 U/L (5-37); Bilirubin Total 0.2 mg/dL (0.0-1.0); Blood Urea Nitrogen 24 mg/dL (9-16); Calcium 9.4 mg/dL (8.4-10.2); Carbon Dioxide 27 mmol/L (22-29); Chloride 100 mmol/L (96-108); Cholesterol 117 mg/dL (<200); Estimated Glomerular Filt Rate > 60; Glucose Fasting 171 mg/dL (60-99); HDL Cholesterol 37 mg/dL (>40); LDL Cholesterol Calculated 61 mg/dL (<100); Potassium 5.3 mmol/L (3.3-5.1); Sodium 137 mmol/L (135-145); Total Protein 7.2 g/dL (6.5-8.0); Triglycerides 98 mg/dL (<150)
== END 2023-07-06 07:16 | disposition home or self-care (01) ==
LOC: HO.LAB 07:15
PROVIDERS: PCP Internal Medicine Medical Oncology; Visit Provider Internal Medicine Medical Oncology
DX: E78.5 Hyperlipidemia, unspecified (principal); E11.9 Type 2 diabetes mellitus without complications
CPT/HCPCS: 36415; 80053; 80061; 83036; 85025

== ENCOUNTER 2023-09-03 10:02 | Emergency (ER) | payer MEDICARE, MEDICAID, SELFPAY ==
--- NOTE | ~2023-09-03 | US_ITS ---
EXAMINATION: US ABDOMEN LIMITED CLINICAL INFORMATION: Right upper quadrant pain. COMPARISON: None available. TECHNIQUE: Real-time imaging of the right upper quadrant abdominal viscera. FINDINGS: PANCREAS: Pancreatic head and body are normal. The tail is obscured by bowel gas. LIVER: The liver is normal in size. The liver contour is normal. Diffuse increased echogenicity of liver parenchyma consistent with fatty change. Focal sparing adjacent to gallbladder fossa. No suspicious focal hepatic lesion. There is no intrahepatic biliary duct dilatation seen. GALLBLADDER: Gallbladder is contracted with mild thickening of the wall. Gallbladder wall measures 0.6 cm. No pericholecystic fluid. Nonshadowing lobular structure in the lumen of the gallbladder measuring 1.2 x 0.4 x 0.9 cm. This does not demonstrate vascular flow, Doppler. This could be tumefactive sludge. A mass is less likely. On the CAT scan of September 29, 2022 small calcified gallstones are present in the gallbladder. No gallstones identified on today's exam. Positive ultrasound Carter's sign. COMMON BILE DUCT: Normal in caliber measuring 0.3 cm in diameter. RIGHT KIDNEY: Normal. No hydronephrosis. No renal calculi or suspicious focal parenchymal lesions. The kidney measures 11.4 cm in maximum dimension. There is an anechoic cyst measuring 1.7 cm in the upper pole. 0.8 cm anechoic cyst lower pole. No follow-up imaging is recommended for simple renal cyst. FREE FLUID: None. US/US abdomen limited IMPRESSION: 1. Diffuse fatty change of liver. 2. Gallbladder is contracted with mild thickening of the wall. No pericholecystic fluid. There is a positive ultrasound Carter's sign. Findings are equivocal for acute cholecystitis. There is a nonshadowing lobular structure in the lumen of the gallbladder. This could be tumefactive sludge. A mass is less likely. On CAT scan of September 29, 2022, small calcified gallstones are present in the gallbladder. No gallstones identified today. 3. Positive ultrasound Carter's sign. 4. No bile duct dilatation.
[2023-09-03 11:15] VITALS: BP 191/66; PULSE 79; RESP 18; TEMP 36.6; O2SAT 98; BMI 21.6
--- NOTE | 2023-09-03 11:15 | ED_ITS ---
HPI - General Adult General Chief complaint: Abdominal Pain Stated complaint: R Side Pain Bloated Gas Time Seen by Provider: 09/03/23 15:16 Source: patient Mode of arrival: ambulatory Limitations: no limitations History of Present Illness HPI narrative: 83-year-old male past medical history of achalasia esophagitis acute coronary syndrome followed by Dr. Sifuentes kidney stones with previous staghorn calculus resulting in UTI complications hyperlipidemia. Who presents emergency department with recurrent epigastric pain he states send the right side he still has a gallbladder is worried that that is the cause he states he has fullness. Patient has had an upper GI and multiple evaluations with GI over the past few months. Patient has any falls or injuries chest pain nausea vomiting diarrhea he has no shortness a breath it has not feel like when he had his ACS in the past. Onset (ago): month(s) Related Data Home Medications ?Medication ?Instructions ?Recorded ?Confirmed aspirin 81 mg tablet,delayed 81 mg PO DAILY 09/24/22 06/10/23 release ticagrelor 90 mg tablet (Brilinta) 90 mg PO BID 06/10/23 06/10/23 Previous Rx's ?Medication ?Instructions ?Recorded atorvastatin 80 mg tablet 80 mg PO BEDTIME #30 tabs 06/10/23 lisinopril 20 mg tablet 20 mg PO DAILY #30 tabs 06/10/23 Allergies Allergy/AdvReac Type Severity Reaction Status Date / Time No Known Allergies Allergy Verified 09/03/23 11:17 [No Known Allergies*] [facility] Past Medical History Medical History (Updated 09/03/23 @ 17:48 by Tank eH DO) Peripheral arterial disease TIA (transient ischemic attack) COPD (chronic obstructive pulmonary disease) Hearing loss Elevated cholesterol HTN (hypertension) Staghorn calculus Nephrolithiasis Enlarged prostate Diabetes mellitus, type II Renal cysts, acquired, bilateral History of kidney stones Rotator cuff impingement syndrome Surgical History (Updated 06/10/23 @ 11:54 by DIONICIO Pulido) History of left-sided carotid endarterectomy Hx of cataract surgery Hx of lithotripsy History of surgery Social History Social History Household Members: None Household Members Other:: 0 Housing: House Are you a primary director critical care to a significant other at home: No Do you presently have visiting nurse or other home services: Yes (pt states occ VNA) Patient Tobacco Use Status: Current everyday Tobacco user Tobacco use type: Cigarette Cigarette Packs Per Day: 1 Cigarettes Per Day: 20.0 Years Smoked: 60 e-Cigarette/Vaping Use: Never Used Advance Directives: Yes Advance Directives on File: Yes Advance Directives Date on File: 09/29/22 service: Yes Current occupational status: employed Physical Exam ED Vital Signs: Vital Signs - 24 hr 09/03/23 11:15 09/03/23 14:59 09/03/23 15:32 Temperature 97.9 F 98.1 F Pulse Rate 79 80 77 Respiratory Rate 18 18 18 Blood Pressure 191/66 H 154/54 H 174/59 H Pulse Oximetry 98 96 99 Oxygen Delivery Method Room Air Room Air Room Air BMI result Body Mass Index 21.6 Course Course Course Narrative: RME performed by Diane Shrestha PA-C. Patient is an 83 year old assigned male at presenting to the emergency department with nausea and right sided pain. Detailed physical exam and review of systems are deferred to the mirror machine feeder. Labs, imaging, and swabs ordered. Patient placed back in the waiting room pending room availability and results. Reevaluation(s) Reevaluation #1: Patient has normal labs normal x-ray looks well I do think this is esophagitis with the patient looks and Pepcid Reevaluation #2: [id number] also called the patient's bedside he is demanding to have his ultrasound and slitting go home states he has not eaten since this morning explained that I do not feed him if he has an issue with his gallbladder that required surgery. I did review the read from the hospice administrator states he has some echogenicity roughly lobulated contour the wall is slightly thickened and there is an echogenic nonvascular now mobile lesion seen within the gallbladder that measures 1 x 0.4 x 0.4 cm questionable mass and that it was tender in that area. Patient was also noted to have a cyst I still do not have the official reading from Radiology I explained the need for the patient follow-up for repeat ultrasounds. Medications Administered Discontinued Medications Generic Name Dose Route Start Last Admin Trade Name Freq PRN Reason Stop Dose Admin Al Hydroxide/Mg Hydroxide 30 ml 09/03/23 15:22 09/03/23 15:50 Magnesium Hydrox/Alum Hydrox 30 Ml Oral.Susp PO 09/03/23 15:23 30 ml ONCE ONE Administration Famotidine 20 mg 09/03/23 15:22 09/03/23 15:50 Famotidine 20 Mg Tablet PO 09/03/23 15:23 20 mg ONCE ONE Administration Medical Decision Making Medical Decision Making [facility] Narrative: Will check labs including LFTs lipase and get a troponin which were all done in triage I will send the patient for a formal ultrasound to make sure his gallbladder is okay. Differential Diagnosis Differential Diagnoses: The differential diagnosis associated with the presentation includes Esophagitis ACS is on the differential since going for several months less likely Admission/Observation Consideration of admission/observation: Escalation of care including admission/observation considered Lab Data MDM Lab Attestation statement: I reviewed the patient's lab results. 09/03/23 12:03 09/03/23 12:03 Labs: Lab Results 09/03/23 09/03/23 09/03/23 Range/Units 12:03 13:20 16:19 WBC 8.4 (4.8-10.8) X10*3/uL RBC 3.87 L (4.60-5.80) X10*6/uL Hgb 11.9 L (14.0-18.0) g/dl Hct 36.1 L (42.0-52.0) % MCV 93.3 (80.0-98.0) fL MCH 30.7 (27.0-33.0) pg MCHC 33.0 (31.0-36.0) g/dl RDW 14.2 (11.0-16.0) % Plt Count 291 (160-400) X10*3/uL MPV 9.9 (9.4-12.4) fL Immature Gran % (Auto) 0.5 H (0.0-0.4) % Neut % (Auto) 62.6 (45-73) % Lymph % (Auto) 26.2 (20-40) % [place] % (Auto) 7.2 (2-11) % Eos % (Auto) 3.1 (0-4) % Baso % (Auto) 0.4 (0-2) % Lymph # (Auto) 2.2 (1.2-4.9) X10*3/uL [place] # (Auto) 0.6 (0.1-1.2) X10*3/uL Eos # (Auto) 0.3 (0.0-0.4) X10*3/uL Baso # (Auto) 0.0 (0.0-0.2) X10*3/uL Abs Immat Gran (auto) 0.04 H (0.00-0.03) X10*3/uL Absolute Neuts (auto) 5.3 (2.0-8.3) x10*3/uL Absolute Nucleated RBC 0.000 (0.0-0.012) X10*3/uL Nucleated RBC % (auto) 0.0 (0.0-0.2) /100WBC PT 13.0 (11.1-13.3) SEC INR 1.1 (0.9-1.1) APTT 35.2 (26.0-36.8) SEC Sodium 138 (135-145) mmol/L Potassium 5.2 H (3.3-5.1) mmol/L Chloride 107 (96-108) mmol/L Carbon Dioxide 22 (22-29) mmol/L Anion Gap 14 (12-20) BUN 30 H (9-16) mg/dL Creatinine 0.98 (0.5-1.4) mg/dL Estim Creat Clear Calc 45.9 Estimated GFR > 60 Random Glucose 176 H (60-115) mg/dL Calcium 9.6 (8.4-10.2) mg/dL Magnesium 2.1 (1.6-2.6) mg/dL Total Bilirubin 0.2 (0.0-1.0) mg/dL AST 23 (5-37) U/L ALT 33 (0-40) U/L Alkaline Phosphatase 78 (39-117) U/L Troponin I High Sens 15.7 D 22.1 (<3.5-35.0) ng/L Total Protein 7.1 (6.5-8.0) g/dL Albumin 4.4 (3.5-5.0) g/dL Urine Color Yellow Urine Appearance Clear Urine pH 5.0 (5.0-9.0) Ur Specific [place] 1.015 (1.005-1.025) Urine Protein Trace (Neg-Trace) mg/dL Urine Glucose (UA) Negative (Negative) mg/dL Urine Ketones Negative (Negative) mg/dL Urine Blood Negative (Negative) Urine Nitrite Negative (Negative) Ur Leukocyte Esterase Negative (Negative) Influenza Type A (PCR) NEGATIVE (Negative) Influenza Type B (PCR) NEGATIVE (Negative) RSV RNA Qual (PCR) NEGATIVE (Negative) SARS-CoV-2 RNA (RT-PCR) NEGATIVE (Negative) Independent Interpretation I performed an independent interpretation of an: EKG and Plain X-Ray Interpretation: Rate 79 normal sinus rhythm left anterior fascicular block no signs of ischemia no change from previous interpreted by me External Record Review External record reviewed: Inpatient record, Office record and Outpatient record Chronic Conditions achalasia esophagitis acute coronary syndrome followed by Dr. Sifuentes kidney stones with previous staghorn calculus resulting in UTI complications hyperlipidemia Discharge Plan Discharge Clinical Impression: Abdominal pain Patient Disposition: Left Against Medical Advice Instructions: Abdominal Pain (ED) Additional Instructions: You were seen today for abdominal pain. You had an ultrasound labs done which were all normal. Ultrasound was not readily time that you decided he wanted to leave the emergency department. The unofficial read shows there might be a mass within the gallbladder that he need follow up with her doctor. If you have any other concerns please return to the emergency department. Prescriptions: No Action aspirin 81 mg Tablet,Delayed Release (Dr/Ec) 81 mg PO DAILY Brilinta 90 mg tablet 90 mg PO BID lisinopril 20 mg tablet 20 mg PO DAILY Qty: 30 5RF atorvastatin 80 mg tablet 80 mg PO BEDTIME Qty: 30 5RF Rx Instructions: Cholesterol-lowering medication Print Language: Burmese
--- NOTE | 2023-09-03 11:16 | ECG_ITS ---
Test Reason : R SIDED CP Blood Pressure : / mmHG Vent. Rate : 079 BPM Atrial Rate : 079 BPM P-R Int : 152 ms QRS Dur : 116 ms QT Int : 380 ms P-R-T Axes : 061 -59 034 degrees QTc Int : 435 ms Normal sinus rhythm Right bundle branch block Left anterior fascicular block Bifascicular block Septal infarct (cited on or before 22-MAY-2023) Abnormal ECG When compared with ECG of 22-MAY-2023 19:26, No significant change was found Referred By: Diane Shrestha Electronically Signed By:BISHNU DE LA CRUZ MD
[2023-09-03 12:15] LABS: MANUAL DIFF FLAG NO
[2023-09-03 12:22] LABS: Basophils Percent Auto 0.4 % (0-2); Eosinophils Absolute Auto 0.3 X10*3/uL (0.0-0.4); Eosinophils Percent Auto 3.1 % (0-4); Hematocrit 36.1 % (42.0-52.0); Hemoglobin 11.9 g/dl (14.0-18.0); Imm Gran Abs Auto 0.04 X10*3/uL (0.00-0.03); Imm Gran Pct Auto 0.5 % (0.0-0.4); Lymphocytes Absolute Auto 2.2 X10*3/uL (1.2-4.9); Lymphocytes Percent Auto 26.2 % (20-40); Mean Corpuscular Hemoglobin 30.7 pg (27.0-33.0); Mean Corpuscular Volume 93.3 fL (80.0-98.0); Mean Platelet Volume 9.9 fL (9.4-12.4); Monocytes Absolute Auto 0.6 X10*3/uL (0.1-1.2); Monocytes Percent Auto 7.2 % (2-11); Neutrophils Absolute Auto 5.3 x10*3/uL (2.0-8.3); Neutrophils Percent Auto 62.6 % (45-73); Platelet Count 291 X10*3/uL (160-400); Red Blood Count 3.87 X10*6/uL (4.60-5.80); Red Cell Distribution Width 14.2 % (11.0-16.0); White Blood Count 8.4 X10*3/uL (4.8-10.8)
[2023-09-03 12:31] LABS: Alanine Aminotransferase 33 U/L (0-40); Albumin Level 4.4 g/dL (3.5-5.0); Alkaline Phosphatase 78 U/L (39-117); Anion Gap 14 (12-20); Aspartate Amino Transferase 23 U/L (5-37); Bilirubin Total 0.2 mg/dL (0.0-1.0); Blood Urea Nitrogen 30 mg/dL (9-16); Calcium 9.6 mg/dL (8.4-10.2); Carbon Dioxide 22 mmol/L (22-29); Chloride 107 mmol/L (96-108); Creatinine Clr Calc Pharmacy 45.9; Estimated Glomerular Filt Rate > 60; Glucose Random 176 mg/dL (60-115); Magnesium 2.1 mg/dL (1.6-2.6); Potassium 5.2 mmol/L (3.3-5.1); Sodium 138 mmol/L (135-145); Total Protein 7.1 g/dL (6.5-8.0)
[2023-09-03 12:35] LABS: INTERNATIONAL NORM RATIO 1.1 (0.9-1.1)
[2023-09-03 12:37] LABS: Partial Thromboplastin Time 35.2 SEC (26.0-36.8)
[2023-09-03 12:39] LABS: Troponin-I High Sensitivity 15.7 ng/L (<3.5-35.0)
[2023-09-03 13:44] LABS: Troponin-I High Sensitivity 22.1 ng/L (<3.5-35.0)
[2023-09-03 14:19] LABS: Influenza A PCR NEGATIVE (Negative); Influenza B PCR NEGATIVE (Negative); Resp Syncy Virus RNA Qual PCR NEGATIVE (Negative); SARS COV2 PCR INHOUSE NEGATIVE (Negative)
[2023-09-03 14:59] VITALS: BP 154/54; PULSE 80; RESP 18; TEMP 36.7; O2SAT 96
[2023-09-03 15:32] VITALS: BP 174/59; PULSE 77; RESP 18; O2SAT 99
--- NOTE | 2023-09-03 15:33 | PC.NURSE ---
Pt brought in from waiting room with concerns from PA, pt placed in room, placed on monitor, vitals stable, MD at bedside, performing US, MD verbalized to not redraw repeat trop ordered, order canceled
[2023-09-03] MEDS: Famotidine 20 MG TABLET PO (15:50)
[2023-09-03] MEDS: Magnesium Hydrox/Alum Hydrox 30 ML ORAL.SUSP PO (15:50)
[2023-09-03 16:27] LABS: Appearance Urine Clear; Color Urine Yellow; Glucose Urine UA Negative (Negative); Leukocyte Esterase Urine Negative (Negative); Nitrite Urine Negative (Negative); Specific Gravity - Urine 1.015 (1.005-1.025); Urine Blood Negative (Negative); Urine Ketones Negative (Negative); Urine Protein Trace mg/dL (Neg-Trace)
[2023-09-03 18:05] VITALS: BP 0/0; PULSE 0; RESP 0; TEMP -17.7; TEMP 0; O2SAT 0
== END 2023-09-03 18:14 | disposition left against medical advice (07) ==
PROVIDERS: Physician Assistant Medical; Emergency Provider Student in an Organized Health Care Education/Training Program; PCP Internal Medicine Medical Oncology
DX: R10.13 Epigastric pain (principal); I10 Essential (primary) hypertension; E11.9 Type 2 diabetes mellitus without complications; J44.9 Chronic obstructive pulmonary disease, unspecified; Z87.442 Personal history of urinary calculi; Z86.73 Personal history of transient ischemic attack (TIA), and cerebral infarction without residual deficits; Z03.818 Encounter for observation for suspected exposure to other biological agents ruled out
CPT/HCPCS: 0241U; 36415; 76705; 80053; 81003; 83735; 84484; 85025; 85610; 85730; 93005; 99284; 99285

== ENCOUNTER → 2023-09-03 11:16 | Outpatient (BNV) | payer MEDICARE, MEDICAID, SELFPAY | PROVIDERS: PCP Internal Medicine Medical Oncology; Visit Provider Internal Medicine Cardiovascular Disease | DX: I45.10 Unspecified right bundle-branch block (principal); I44.4 Left anterior fascicular block; I45.2 Bifascicular block | CPT/HCPCS: 93010 ==

== ENCOUNTER 2023-09-08 09:43 | Emergency (ER) | payer MEDICARE, MEDICAID, SELFPAY ==
--- NOTE | ~2023-09-08 | CT_ITS ---
EXAMINATION: CT ABDOMEN AND PELVIS WITH CONTRAST CLINICAL INFORMATION: Right upper quadrant pain COMPARISON: None available. TECHNIQUE: Multidetector volumetric images were obtained from the superior aspect of the liver through the pubic symphysis following administration 85 mL of Omnipaque 350 intravenous contrast. Sagittal and coronal reformatted images were obtained on the technologist's workstation. Oral contrast: No This CT examination was performed using dose optimization techniques as appropriate, variously including the following: *Automated exposure control *Adjustment of mA and/or kV according to patient size (this includes techniques or standardized protocols for targeted exams where dose is matched to indication/reason for exam; i.e. extremities or head) *Use of iterative reconstruction technique DLP: 359 mGy-cm FINDINGS: LUNG BASES: The visualized lung bases are unremarkable. LIVER, GALLBLADDER, AND BILIARY TREE: The liver is normal in size, shape, and attenuation. No focal hepatic lesion or biliary ductal dilatation is present. The gallbladder is contracted and contains small layering calculi without obvious pericholecystic inflammatory changes. PANCREAS: Unremarkable. SPLEEN: Unremarkable. ADRENAL GLANDS: Unremarkable. KIDNEYS AND URETERS: The kidneys are normal in size, shape, and attenuation. There is a single lower pole renal calculus in the right kidney measuring 5 x 3 mm with 2 stones on the left with largest measuring 9 x 4 mm at the lower pole. No hydronephrosis, hydroureter, or calculi seen. No perinephric stranding. Multiple bilateral benign Bosniak class I renal cysts are noted which require no additional imaging or follow-up. No solid renal masses are seen. BLADDER: Unremarkable. GASTROINTESTINAL TRACT: The small and large bowel are unremarkable. The appendix is not seen but there is no evidence of appendicitis evidence of appendicitis. ABDOMINAL WALL: No significant hernia is appreciated. LYMPH NODES: No retroperitoneal disease. VASCULAR: There are atherosclerotic changes are seen in the aorta and iliofemoral vessels. A left external iliac artery stent is present and patent. A tight stenosis is noted at the origin of the right SFA and the left SFA is occluded. The celiac, SMA, renal arteries and DOC all have mild atherosclerotic disease but are widely patent. PELVIC VISCERA: There is mild to moderate BPH present. The seminal vesicles appear normal. OSSEOUS STRUCTURES: Moderate degenerative changes are present most marked at L4-L5. No bony destructive lesions are seen. CT/CT abdomen pelvis w IV con IMPRESSION: 1. A cause for the patient's right upper quadrant pain has not been found. 2. Cholelithiasis without cholecystitis. 3. Bilateral nonobstructing renal calculi. 4. Atherosclerotic changes with occlusion of the left SFA and tight stenosis at the origin of the right SFA. 5. Mild to moderate BPH. 6. Degenerative changes in the spine. Fleischner guidelines were followed.
[2023-09-08 10:13] VITALS: BP 181/85; PULSE 82; RESP 18; TEMP 36.2; O2SAT 97; BMI 21.1
[2023-09-08 11:50] LABS: MANUAL DIFF FLAG NO
[2023-09-08 11:52] LABS: Basophils Percent Auto 0.3 % (0-2); Eosinophils Absolute Auto 0.4 X10*3/uL (0.0-0.4); Eosinophils Percent Auto 4.6 % (0-4); Hematocrit 37.5 % (42.0-52.0); Hemoglobin 12.2 g/dl (14.0-18.0); Imm Gran Abs Auto 0.04 X10*3/uL (0.00-0.03); Imm Gran Pct Auto 0.5 % (0.0-0.4); Lymphocytes Absolute Auto 2.6 X10*3/uL (1.2-4.9); Lymphocytes Percent Auto 30.1 % (20-40); Mean Corpuscular HGB Conc 32.5 g/dl (31.0-36.0); Mean Corpuscular Hemoglobin 30.7 pg (27.0-33.0); Mean Corpuscular Volume 94.2 fL (80.0-98.0); Mean Platelet Volume 9.7 fL (9.4-12.4); Monocytes Absolute Auto 0.7 X10*3/uL (0.1-1.2); Monocytes Percent Auto 8.2 % (2-11); Neutrophils Percent Auto 56.3 % (45-73); Platelet Count 288 X10*3/uL (160-400); Red Blood Count 3.98 X10*6/uL (4.60-5.80); Red Cell Distribution Width 14.1 % (11.0-16.0); White Blood Count 8.8 X10*3/uL (4.8-10.8)
[2023-09-08 12:16] LABS: Alanine Aminotransferase 30 U/L (0-40); Albumin Level 4.3 g/dL (3.5-5.0); Alkaline Phosphatase 79 U/L (39-117); Anion Gap 11 (12-20); Aspartate Amino Transferase 20 U/L (5-37); Bilirubin Direct 0.1 mg/dL (0.0-0.5); Bilirubin Total 0.3 mg/dL (0.0-1.0); Blood Urea Nitrogen 25 mg/dL (9-16); Calcium 8.9 mg/dL (8.4-10.2); Carbon Dioxide 20 mmol/L (22-29); Chloride 109 mmol/L (96-108); Creatinine Clr Calc Pharmacy 45.8; Estimated Glomerular Filt Rate > 60; Glucose Random 172 mg/dL (60-115); Lipase 21 U/L (8-78); Potassium 5.1 mmol/L (3.3-5.1); Sodium 135 mmol/L (135-145); Total Protein 7.1 g/dL (6.5-8.0)
[2023-09-08 15:54] VITALS: BP 151/50; PULSE 80; RESP 18; TEMP 36.6; O2SAT 97
[2023-09-08 16:18] LABS: Appearance Urine Clear; Color Urine Yellow; Glucose Urine UA Negative (Negative); Leukocyte Esterase Urine Negative (Negative); Nitrite Urine Negative (Negative); Specific Gravity - Urine 1.015 (1.005-1.025); UMIC TRIGGER UACC YES; Urine Blood Negative (Negative); Urine Ketones Negative (Negative); Urine Protein 30 (1+) mg/dL (Neg-Trace)
[2023-09-08 16:21] LABS: Bacteria Urine None Seen (None Seen); Hyaline Casts Urine 0-2 /LPF (0-2); RBC Urine 0-2 /HPF (0-2); Squamous Epithelial Cell Urine 0-2 /HPF (0-2); WBC Urine 0-5 /HPF (0-5)
[2023-09-08 20:39] VITALS: BP 146/48; PULSE 78; RESP 18; TEMP 36; O2SAT 98
--- NOTE | 2023-09-08 20:49 | ED_ITS ---
HPI - Abdominal Pain General Chief Complaint: Abdominal Pain Stated Complaint: Abdominal Pain Time Seen by Provider: 09/08/23 20:40 Source: patient Mode of arrival: ambulatory Limitations: no limitations History of Present Illness HPI narrative: Patient with right upper quadrant discomfort for last 1 month with slight nausea and gaseous feeling had ultrasound done on 09/02 as outpatient showed slight gallbladder wall thickening without any gallstones patient is sent by his PCP for further evaluation no fever no chills patient had a CT scan done 10/20 at that time was positive for questionable gallstone Related Data Home Medications ?Medication ?Instructions ?Recorded ?Confirmed aspirin 81 mg tablet,delayed 81 mg PO DAILY 09/24/22 06/10/23 release ticagrelor 90 mg tablet (Brilinta) 90 mg PO BID 06/10/23 06/10/23 Previous Rx's ?Medication ?Instructions ?Recorded atorvastatin 80 mg tablet 80 mg PO BEDTIME #30 tabs 06/10/23 lisinopril 20 mg tablet 20 mg PO DAILY #30 tabs 06/10/23 Allergies Allergy/AdvReac Type Severity Reaction Status Date / Time No Known Allergies Allergy Verified 09/08/23 10:14 [No Known Allergies*] Review of Systems Review of Systems Yes all other systems are reviewed and are negative PMFSH Past Medical History Medical History Peripheral arterial disease TIA (transient ischemic attack) COPD (chronic obstructive pulmonary disease) Hearing loss Elevated cholesterol HTN (hypertension) Staghorn calculus Nephrolithiasis Enlarged prostate Diabetes mellitus, type II Renal cysts, acquired, bilateral History of kidney stones Rotator cuff impingement syndrome Surgical History History of left-sided carotid endarterectomy Hx of cataract surgery Hx of lithotripsy History of surgery Social History Social History Household Members: None Household Members Other:: 0 Housing: House Are you a primary healthcare associate to a significant other at home: No Do you presently have visiting nurse or other home services: Yes (pt states occ VNA) Patient Tobacco Use Status: Current everyday Tobacco user Tobacco use type: Cigarette Cigarette Packs Per Day: 1 Cigarettes Per Day: 20.0 Years Smoked: 60 Smoked in Last 30 Days: Yes e-Cigarette/Vaping Use: Never Used Use of substances other than those prescribed or required for medical reasons: No Advance Directives: Yes Advance Directives on File: Yes Advance Directives Date on File: 09/29/22 service: Yes Current occupational status: employed Physical Exam ED Vital Signs: Vital Signs - 24 hr 09/08/23 10:13 09/08/23 15:54 09/08/23 20:39 Temperature 97.2 F 97.8 F 96.8 F Pulse Rate 82 80 78 Respiratory Rate 18 18 18 Blood Pressure 181/85 H 151/50 H 146/48 H Pulse Oximetry 97 97 98 Oxygen Delivery Method Room Air Room Air Room Air 09/08/23 22:40 Temperature 96.8 F Pulse Rate 80 Respiratory Rate 20 Blood Pressure 133/49 L Pulse Oximetry 98 Oxygen Delivery Method Room Air BMI result Body Mass Index 21.1 Appearance: Alert. Oriented X3. No acute distress. Eyes: No pallor or icterus ENT: Pharynx normal. Oral Mucosa moist Neck: Normal inspection. Neck supple. CVS: Normal heart rate and rhythm. Pulses normal. Respiratory: No respiratory distress. Equal air entry bilateral, no wheezing/rales/rhonchi Abdomen: Soft , slight deep tenderness right upper quadrant area no rebound tenderness or guard Bowel sounds are present, no mass palpable, no CVA tenderness Skin: Skin warm and dry. Normal skin color. Normal skin turgor. Extremities: No lower extremity edema. No calf tenderness Neuro: Oriented X 3. No motor deficit. No sensory deficit.No cerebellar signs , cranial nerves II-XII intact Medical Decision Making Medical Decision Making MDM Narrative: Patient with nonobstructive gallstones no signs of malignancy WBC count normal liver functions normal patient feeling much better will discharge patient home advised to follow with surgeon Differential Diagnosis Differential Diagnoses: The differential diagnosis associated with the presentation includes Biliary colic/gallbladder cancer/polyp Lab Data [facility] Lab Attestation statement: I reviewed the patient's lab results. 09/08/23 11:45 09/08/23 11:45 Labs: Lab Results 09/08/23 09/08/23 Range/Units 11:45 16:00 WBC 8.8 (4.8-10.8) X10*3/uL RBC 3.98 L (4.60-5.80) X10*6/uL Hgb 12.2 L (14.0-18.0) g/dl Hct 37.5 L (42.0-52.0) % MCV 94.2 (80.0-98.0) fL MCH 30.7 (27.0-33.0) pg MCHC 32.5 (31.0-36.0) g/dl RDW 14.1 (11.0-16.0) % Plt Count 288 (160-400) X10*3/uL MPV 9.7 (9.4-12.4) fL Immature Gran % (Auto) 0.5 H (0.0-0.4) % Neut % (Auto) 56.3 (45-73) % Lymph % (Auto) 30.1 (20-40) % [place] % (Auto) 8.2 (2-11) % Eos % (Auto) 4.6 H (0-4) % Baso % (Auto) 0.3 (0-2) % Lymph # (Auto) 2.6 (1.2-4.9) X10*3/uL [place] # (Auto) 0.7 (0.1-1.2) X10*3/uL Eos # (Auto) 0.4 (0.0-0.4) X10*3/uL Baso # (Auto) 0.0 (0.0-0.2) X10*3/uL Abs Immat Gran (auto) 0.04 H (0.00-0.03) X10*3/uL Absolute Neuts (auto) 5.0 (2.0-8.3) x10*3/uL Absolute Nucleated RBC 0.000 (0.0-0.012) X10*3/uL Nucleated RBC % (auto) 0.0 (0.0-0.2) /100WBC Sodium 135 (135-145) mmol/L Potassium 5.1 (3.3-5.1) mmol/L Chloride 109 H (96-108) mmol/L Carbon Dioxide 20 L (22-29) mmol/L Anion Gap 11 L (12-20) BUN 25 H (9-16) mg/dL Creatinine 0.96 (0.5-1.4) mg/dL Estim Creat Clear Calc 45.8 Estimated GFR > 60 Random Glucose 172 H (60-115) mg/dL Calcium 8.9 D (8.4-10.2) mg/dL Total Bilirubin 0.3 (0.0-1.0) mg/dL Direct Bilirubin 0.1 (0.0-0.5) mg/dL AST 20 (5-37) U/L ALT 30 (0-40) U/L Alkaline Phosphatase 79 (39-117) U/L Total Protein 7.1 (6.5-8.0) g/dL Albumin 4.3 (3.5-5.0) g/dL Lipase 21 (8-78) U/L Urine Color Yellow Urine Appearance Clear Urine pH 5.0 (5.0-9.0) Ur Specific [place] 1.015 (1.005-1.025) Urine Protein 30 (1+) H (Neg-Trace) mg/dL Urine Glucose (UA) Negative (Negative) mg/dL Urine Ketones Negative (Negative) mg/dL Urine Blood Negative (Negative) Urine Nitrite Negative (Negative) Ur Leukocyte Esterase Negative (Negative) Urine RBC 0-2 (0-2) /HPF Urine WBC 0-5 (0-5) /HPF Ur Squamous Epith Cells 0-2 (0-2) /HPF Urine Bacteria None Seen (None Seen) Hyaline Casts 0-2 (0-2) /LPF Independent Interpretation I performed an independent interpretation of an: Ultrasound and CT Scan Radiology Impression Discussion of test interpretation with radiology: I have reviewed the radiologist's reading. Medications Administered Discontinued Medications Generic Name Dose Route Start Last Admin Trade Name Freq PRN Reason Stop Dose Admin Sodium Chloride 1,000 mls @ 999 mls/hr 09/08/23 20:56 09/08/23 23:20 Ns IV 09/08/23 21:56 Infused .Q1H1M ONE Infusion Iohexol 85 ml 09/08/23 21:28 09/08/23 21:29 Iohexol 350 Mg/Ml 100 Ml Infus..Btl IV 09/08/23 21:29 85 ml ONCE ONE Administration Ondansetron HCl 4 mg 09/08/23 23:32 09/08/23 23:39 Ondansetron Hcl 4 Mg/2 Ml Vial IVPUSH 09/08/23 23:33 4 mg ONCE ONE Administration Discharge Plan Discharge Clinical Impression: Cholelithiasis Patient Disposition: Home, Self-Care Instructions: Gallstones (ED) Additional Instructions: Drink plenty of fluids Avoid fried food Follow with surgeon for further management Report to the ER if pain in right upper quadrant/vomiting/fever Prescriptions: No Action aspirin 81 mg Tablet,Delayed Release (Dr/Ec) 81 mg PO DAILY Brilinta 90 mg tablet 90 mg PO BID lisinopril 20 mg tablet 20 mg PO DAILY Qty: 30 5RF atorvastatin 80 mg tablet 80 mg PO BEDTIME Qty: 30 5RF Rx Instructions: Cholesterol-lowering medication Print Language: Frisian
[2023-09-08] MEDS: 0.9 % Sodium Chloride 1,000 ML 999 ML IV (21:09)
[2023-09-08] MEDS: iohexoL 350 MG/ML 100 ML INFUS..BTL 85 ML IV (21:29)
--- NOTE | 2023-09-08 21:36 | PC.NURSE ---
this rn assumed care of pt. pt a&ox4 and ambulatory. pt reporting nausea vomiting and diarrhea x1 month, reports right sided abdominal discomfort x1 month. reports being seen by PCP and reports there is no cause of pain. pt reports after PO intake that the pain increases. 20G placed in right AC, fluids hanging.
[2023-09-08 22:40] VITALS: BP 133/49; PULSE 80; RESP 20; TEMP 36; O2SAT 98
[2023-09-08] MEDS: ondansetron HCL 4 MG/2 ML VIAL IVPUSH (23:39)
[2023-09-09 00:40] VITALS: BP 144/67; PULSE 85; RESP 16; TEMP 37; O2SAT 96
== END 2023-09-09 00:40 | disposition home or self-care (01) ==
PROVIDERS: Emergency Provider Internal Medicine; PCP Internal Medicine Medical Oncology
DX: K80.20 Calculus of gallbladder without cholecystitis without obstruction (principal); R10.11 Right upper quadrant pain; R11.2 Nausea with vomiting, unspecified; Z79.899 Other long term (current) drug therapy
CPT/HCPCS: 36415; 74177; 80048; 80076; 81001; 83690; 85025; 96361; 96374; 99285; J2405; Q9967

== ENCOUNTER 2023-09-14 05:59 | Inpatient (IN) | payer MEDICARE, MEDICAID, SELFPAY ==
[2023-09-14] VITALS (7 sets, daily range): BP systolic 142–168; BP diastolic 47–60; PULSE 63–88; RESP 14–20; TEMP 36.2–37; O2SAT 97–99; BMI 20.9
--- NOTE | ~2023-09-14 | US_ITS ---
EXAMINATION: US ABDOMEN LIMITED CLINICAL INFORMATION: Right upper quadrant pain. COMPARISON: None available. TECHNIQUE: Real-time imaging of the gallbladder and common bile duct only. FINDINGS: GALLBLADDER: The gallbladder wall is thickened at 5 mm and contains a small amount of fluid. Multiple mobile gallstones are present in the gallbladder. No pericholecystic fluid collections are seen. COMMON BILE DUCT: Normal in caliber measuring 0.3 cm in diameter. US/US abdomen limited IMPRESSION: Cholelithiasis with thickened gallbladder wall and small amount of pericholecystic fluid. Findings are suggestive of acute cholecystitis.
--- NOTE | ~2023-09-14 | NM_ITS ---
EXAMINATION: BILIARY TRACT IMAGING STUDY WITH CCK CLINICAL INFORMATION: Rule out acute cholecystitis.. COMPARISON: No previous biliary scan is available for comparison. Abdominal ultrasound dated 09/14/[address] scan of the abdomen and pelvis dated 09/08/2023 are available for comparison.. TECHNIQUE: Serial gamma scintillation camera images were obtained over the abdomen for a total observation period of 93 minutes following the intravenous administration of 5.0 mCi Tc-99m Mebrofenin. FINDINGS: There is good concentration of activity in the liver by 5 minutes post injection. Biliary activity is visualized by 10 minutes. The gallbladder is well visualized by 20 minutes. Small bowel is well visualized by 60 minutes. At 60 minutes post radiopharmaceutical injection, a 30-minute infusion of 1.1 micrograms Sincalide was then begun and an additional 40 minutes of images were obtained. There is good emptying of the gallbladder. By the end of the study there is good clearance of activity from the liver and visualization of diffuse small bowel activity. The calculated gallbladder ejection fraction is 42% (normal gallbladder ejection fraction is greater than 35%). NM/NM hepatobiliary w pharm IMPRESSION: Visualization of the gallbladder is evidence of a patent cystic duct and strong evidence against the diagnosis of acute cholecystitis. The common bile duct is patent. Gallbladder emptying and ejection fraction are normal. Liver function appears normal.
[2023-09-14 06:31] LABS: MANUAL DIFF FLAG NO
[2023-09-14 06:34] LABS: Basophils Absolute Auto 0.1 X10*3/uL (0.0-0.2); Basophils Percent Auto 0.4 % (0-2); Eosinophils Absolute Auto 0.3 X10*3/uL (0.0-0.4); Eosinophils Percent Auto 2.7 % (0-4); Hematocrit 38.9 % (42.0-52.0); Hemoglobin 12.8 g/dl (14.0-18.0); Imm Gran Abs Auto 0.03 X10*3/uL (0.00-0.03); Imm Gran Pct Auto 0.3 % (0.0-0.4); Lymphocytes Absolute Auto 2.8 X10*3/uL (1.2-4.9); Mean Corpuscular HGB Conc 32.9 g/dl (31.0-36.0); Mean Corpuscular Volume 94.2 fL (80.0-98.0); Mean Platelet Volume 9.7 fL (9.4-12.4); Monocytes Percent Auto 8.5 % (2-11); Neutrophils Absolute Auto 7.2 x10*3/uL (2.0-8.3); Neutrophils Percent Auto 63.1 % (45-73); Platelet Count 336 X10*3/uL (160-400); Red Blood Count 4.13 X10*6/uL (4.60-5.80); Red Cell Distribution Width 14.3 % (11.0-16.0); White Blood Count 11.4 X10*3/uL (4.8-10.8)
[2023-09-14 06:45] LABS: COVID-19 Test Negative (Negative); IDNOW Serial# 152EDE1D
[2023-09-14 06:48] LABS: IDNOW Serial# 08D9AD1C; Influenza A Negative (Negative); Influenza B2 Negative (Negative)
[2023-09-14 06:50] LABS: Alanine Aminotransferase 42 U/L (0-40); Albumin Level 4.3 g/dL (3.5-5.0); Alkaline Phosphatase 83 U/L (39-117); Anion Gap 14 (12-20); Aspartate Amino Transferase 31 U/L (5-37); Bilirubin Total 0.4 mg/dL (0.0-1.0); Blood Urea Nitrogen 21 mg/dL (9-16); Calcium 9.5 mg/dL (8.4-10.2); Carbon Dioxide 17 mmol/L (22-29); Chloride 109 mmol/L (96-108); Creatinine Clr Calc Pharmacy 42.3; Estimated Glomerular Filt Rate > 60; Glucose Random 101 mg/dL (60-115); Lipase 19 U/L (8-78); Potassium 5.3 mmol/L (3.3-5.1); Sodium 135 mmol/L (135-145); Total Protein 7.2 g/dL (6.5-8.0)
--- NOTE | 2023-09-14 08:33 | ED.ABDPAIN ---
HPI - Abdominal Pain General Chief Complaint: Abdominal Pain Stated Complaint: Abd pain Time Seen by Provider: 09/14/23 08:32 Source: patient and old records reviewed Mode of arrival: ambulatory Limitations: no limitations History of Present Illness HPI narrative: 83 yo male with history of HTN, DM2, CAD s/p stent, kidney stones s/p left sided stent, PVD s/p stent, TIA, COPD, HLD, achalasia, esophagitis, hiatial hernia, and gallstones who presents to the ER for the 3rd time this month for evaluation of right sided abdominal pain. He reports the pain has been present for a month, waxing and waning but worse today. He woke up at 4am with severe pain, 8/10 stabbing pain along his entire right side of his abdomen, worse in the upper portion. He had 3 episodes of nonbloody vomiting and diarrhea. No fevers. He has not been able to tolerate much PO as eating makes the pain worse. He feels very weak. His PCP Dr. Foss tried to get him in with Gen Surg yesterday but it was a holiday and the office was closed. He was seen here on 09/02 - left AMA pending U/S reading which showed findings equivocal to acute cholecystitis w/ wall thicking and +Carter's sign. He was also seen on 09/07, CT scan showed gallstones without signs of acute cholecystitis. He was discharged after feeling better and told to f/u with Surgery. MD elicited complaint: abdominal pain Pertinent past history: kidney stones and other (gallstones) Onset (ago): month(s) (1) Pain Consistency: constant Location: RUQ Severity: severe Pain scale (0-10): 8 Quality: stabbing Radiation: R flank Migration to: no migration Exacerbating factors: eating Relieving factors: nothing Context: history of similar episodes Associated symptoms: nausea, vomiting, diarrhea and other (weakness) Related Data Home Medications ?Medication ?Instructions ?Recorded ?Confirmed aspirin 81 mg tablet,delayed 81 mg PO DAILY 09/24/22 06/10/23 release ticagrelor 90 mg tablet (Brilinta) 90 mg PO BID 06/10/23 06/10/23 Previous Rx's ?Medication ?Instructions ?Recorded atorvastatin 80 mg tablet 80 mg PO BEDTIME #30 tabs 06/10/23 lisinopril 20 mg tablet 20 mg PO DAILY #30 tabs 06/10/23 Allergies Allergy/AdvReac Type Severity Reaction Status Date / Time No Known Allergies Allergy Verified 09/14/23 06:03 [No Known Allergies*] Review of Systems Review of Systems Yes all other systems are reviewed and are negative [facility] Past Medical History Medical History Peripheral arterial disease TIA (transient ischemic attack) COPD (chronic obstructive pulmonary disease) Hearing loss Elevated cholesterol HTN (hypertension) Staghorn calculus Nephrolithiasis Enlarged prostate Diabetes mellitus, type II Renal cysts, acquired, bilateral History of kidney stones Rotator cuff impingement syndrome Surgical History History of left-sided carotid endarterectomy Hx of cataract surgery Hx of lithotripsy History of surgery Social History Social History Household Members: None Household Members Other:: 0 Housing: House Are you a primary multi care technician to a significant other at home: No Do you presently have visiting nurse or other home services: Yes (pt states occ VNA) Patient Tobacco Use Status: Current everyday Tobacco user Tobacco use type: Cigarette Cigarette Packs Per Day: 1 Cigarettes Per Day: 20.0 Years Smoked: 60 e-Cigarette/Vaping Use: Never Used Advance Directives: Yes Advance Directives on File: Yes Advance Directives Date on File: 09/29/22 service: Yes Current occupational status: employed Physical Exam ED Vital Signs: Vital Signs - 24 hr 09/14/23 06:02 Temperature 97.9 F Pulse Rate 88 Respiratory Rate 16 Blood Pressure 142/49 H Pulse Oximetry 97 Oxygen Delivery Method Room Air BMI result Body Mass Index 20.9 Appearance: Alert elderly male, Oriented X3. Appears uncomfortable Head: normocephalic, atraumatic. Eyes: Pupils equal, round and reactive to light. ENT: Pharynx normal. No tonsillar swelling or exudate. Neck: Normal inspection. Neck supple. CVS: Normal heart rate and rhythm. Pulses normal. Respiratory: No respiratory distress. Breath sounds normal. Abdomen: RUQ tenderness w/ guarding, +Carter's sign. normal active +BS x4 Skin: Skin warm and dry. Normal skin color. Normal skin turgor. No rashes. Extremities: No lower extremity edema. No joint swelling. Neuro/psych: Oriented X 3. No motor deficit. No sensory deficit. CN II-XII intact. Normal speech and cognition. Medical Decision Making Medical Decision Making [facility] Narrative: 83 yo male with multiple medical problems presents to the ER for evaluation for the 3rd time this month for right upper quadrant pain. Developed acute onset nausea, vomiting, diarrhea this morning at 04:00. Pain increased 8/10. No fevers. Arrives to the ER he is uncomfortable, holding his right abdomen. No vomiting here. No fevers. Lab workup showing mild leukocytosis with a white blood cell count while 11.4. LFTs are largely within normal limits. Lipase is normal. Concern for acute vs chronic cholecystitis. Ultrasound of the gallbladder today is showing gallstones with pericholecystic fluid and wall thickening. Findings are consistent with acute cholecystitis. Patient does not meet sepsis criteria at this time. IV Zosyn was ordered for brought intra-abdominal coverage. Surgery was consulted who recommends medicine admission with surgery consult. Given his comorbidities he may end up getting a percutaneous cholecystostomy tube rather than cholecystectomy. Patient updated on findings and plan. Plan to admit to the hospital for further management. Differential Diagnosis Differential Diagnoses: The differential diagnosis associated with the presentation includes acute vs chronic cholecystitis, choledocholithiasis, ascending cholangitis, biliary colic, renal colic, gastroenteritis Admission/Observation Consideration of admission/observation: Escalation of care including admission/observation considered Consult Healthcare Provider Management of the patient was discussed with: Hospitalist and Horizontal Drill Operator Dr. Garcia General Surgery - recommending admission to medicine service with surgery consult, may end up getting a percutaneous cholec Lab Data [facility] Lab Attestation statement: I reviewed the patient's lab results. mild leukocytosis, mild anemia, mild hyperkalemia, normal renal function, LFTs and lipase are not consistent with biliary obstruction 09/14/23 06:25 09/14/23 06:25 Labs: Lab Results 09/14/23 Range/Units 06:25 WBC 11.4 H (4.8-10.8) X10*3/uL RBC 4.13 L (4.60-5.80) X10*6/uL Hgb 12.8 L (14.0-18.0) g/dl Hct 38.9 L (42.0-52.0) % MCV 94.2 (80.0-98.0) fL MCH 31.0 (27.0-33.0) pg MCHC 32.9 (31.0-36.0) g/dl RDW 14.3 (11.0-16.0) % Plt Count 336 (160-400) X10*3/uL MPV 9.7 (9.4-12.4) fL Immature Gran % (Auto) 0.3 (0.0-0.4) % Neut % (Auto) 63.1 (45-73) % Lymph % (Auto) 25.0 (20-40) % [place] % (Auto) 8.5 (2-11) % Eos % (Auto) 2.7 (0-4) % Baso % (Auto) 0.4 (0-2) % Lymph # (Auto) 2.8 (1.2-4.9) X10*3/uL [place] # (Auto) 1.0 (0.1-1.2) X10*3/uL Eos # (Auto) 0.3 (0.0-0.4) X10*3/uL Baso # (Auto) 0.1 (0.0-0.2) X10*3/uL Abs Immat Gran (auto) 0.03 (0.00-0.03) X10*3/uL Absolute Neuts (auto) 7.2 (2.0-8.3) x10*3/uL Absolute Nucleated RBC 0.000 (0.0-0.012) X10*3/uL Nucleated RBC % (auto) 0.0 (0.0-0.2) /100WBC Sodium 135 (135-145) mmol/L Potassium 5.3 H (3.3-5.1) mmol/L Chloride 109 H (96-108) mmol/L Carbon Dioxide 17 L (22-29) mmol/L Anion Gap 14 (12-20) BUN 21 H (9-16) mg/dL Creatinine 1.03 (0.5-1.4) mg/dL Estim Creat Clear Calc 42.3 Estimated GFR > 60 Random Glucose 101 (60-115) mg/dL Calcium 9.5 D (8.4-10.2) mg/dL Total Bilirubin 0.4 (0.0-1.0) mg/dL AST 31 (5-37) U/L ALT 42 H (0-40) U/L Alkaline Phosphatase 83 (39-117) U/L Total Protein 7.2 (6.5-8.0) g/dL Albumin 4.3 (3.5-5.0) g/dL Lipase 19 (8-78) U/L COVID-19 (OCTAVIA) Negative (Negative) COVID-19 Clin Com See Note Influenza Type A (DIANE) Negative (Negative) Influenza Type B (DIANE) Negative (Negative) Influenza A & B Note See Note Independent Interpretation I performed an independent interpretation of an: Ultrasound Interpretation: Mild wall thickening, stones in the gallbladder. Agree with radiology read Radiology Impression Discussion of test interpretation with radiology: I have reviewed the radiologist's reading. Radiologist Impression: CLINICAL INFORMATION: Right upper quadrant pain. COMPARISON: None available. TECHNIQUE: Real-time imaging of the gallbladder and common bile duct only. FINDINGS: GALLBLADDER: The gallbladder wall is thickened at 5 mm and contains a small amount of fluid. Multiple mobile gallstones are present in the gallbladder. No pericholecystic fluid collections are seen. COMMON BILE DUCT: Normal in caliber measuring 0.3 cm in diameter. US/US abdomen limited IMPRESSION: Cholelithiasis with thickened gallbladder wall and small amount of pericholecystic fluid. Findings are suggestive of acute cholecystitis. External Record Review External record reviewed: Outpatient record, Prior outpatient labs and Prior outpatient radiology Prescription Management I considered prescription management with: Pain Medication and Antibiotic Chronic Conditions Patient?s care impacted by: Hypertension and Other (gallstones, achalasia, esophagitis) Medications Administered Discontinued Medications Generic Name Dose Route Start Last Admin Trade Name Freq PRN Reason Stop Dose Admin Morphine Sulfate 4 mg 09/14/23 08:36 09/14/23 08:55 Morphine Sulfate 4 Mg/Ml Cartridge IVPUSH 09/14/23 08:37 4 mg ONCE ONE Administration Protocol Ondansetron HCl 4 mg 09/14/23 08:36 09/14/23 08:55 Ondansetron Hcl 4 Mg/2 Ml Vial IVPUSH 09/14/23 08:37 4 mg ONCE ONE Administration Critical Care Time Critical Care Time Critical Care Time: Yes Total Critical Care Time: 48 Attestation: I have personally provided critical care time exclusive of time spent on separately billable procedures. Time includes review of lab data, radiology results, discussion with consultants, and monitoring for potential decompensation. Intervention performed as documented. Discharge Plan Discharge Clinical Impression: Acute cholecystitis Patient Disposition: Admitted As Inpatient Print Language: Yi
[2023-09-14] MEDS: Morphine Sulfate 4 MG/ML CARTRIDGE IVPUSH (08:55)
[2023-09-14] MEDS: ondansetron HCL 4 MG/2 ML VIAL IVPUSH (08:55)
--- NOTE | 2023-09-14 09:11 | ECG_ITS ---
Test Reason : NAUSEA Blood Pressure : / mmHG Vent. Rate : 069 BPM Atrial Rate : 069 BPM P-R Int : 156 ms QRS Dur : 112 ms QT Int : 418 ms P-R-T Axes : 070 -60 030 degrees QTc Int : 447 ms Normal sinus rhythm Right bundle branch block Left anterior fascicular block Bifascicular block Septal infarct (cited on or before 22-MAY-2023) Abnormal ECG When compared with ECG of 03-SEP-2023 11:53, Questionable change in initial forces of Septal leads Referred By: Tesha Wahl Electronically Signed By:SAIMA JARA
[2023-09-14] MEDS: Piperacillin Sodium/Tazobactam 3.375 GM in 0.9 % Sodium Chloride 50 ML IV (11:31)
[2023-09-14 11:45] LABS: Lactic Acid 1.2 mmol/L (0.5-2.0)
--- NOTE | 2023-09-14 11:58 | P.HPHOSP_ITS ---
History of Present Illness Date of Service: 09/14/23 Attending physician on admission: Nick Adams Chief Complaint: ruq pain 83-year-old male with history of CAD s/p ALVAREZ 04/2023, hyperlipidemia, BPH, peripheral artery disease, history TIA, hypertension, [id number] type 2 diabetes presented to the ED earlier today for evaluation of right upper quadrant discomfort which has been ongoing for 3 weeks and has been worsening. He states the pain is constant and nonradiating but worsens with food intake. He has been trying to limit fatty foods and dairy but reports the pain persists. Last night did have episodes of nausea and vomiting as well as 3 episodes of diarrhea. He denies any fevers or chills. No melena or hematochezia. No hematemesis. He does endorse some heartburn. No shortness of breath, lightheadedness, palpitations, chest pain. On arrival, vital signs stable though slightly hypertensive at 142/49. Mild leukocytosis of 11.4. Has a stable normocytic anemia with H/H 12.8/38.9%. Renal function is baseline. Electrolyte levels significant for mild hyperkalemia 5.3, chloride 109, CO2 17. Lactic acid 1.2. Hepatic function normal. Negative for COVID-19, influenza. Abdominal ultrasound shows cholelithiasis with thickened gallbladder wall and small amount of pericholecystic fluid suggestive of acute cholecystitis. This is his 3rd visit to the ER in the last month for the same. ED discussed case with general surgery recommending admission to hospitalist service with surgical consult. He will be managed conservatively with IV Zosyn at this time with plan for possible IR cholecystostomy. In the ED, started on IV Zosyn and given 4 mg morphine and ondansetron. Review of Systems 2 Review of Systems: General: No fevers, malaise, unintentional weight loss HEENT: No blurred vision, diplopia. No sore throat, nasal congestion, rhinorrhea, sinus pain, ear pain Cardiovascular: No chest pain, palpitations, or leg edema Respiratory: No shortness of breath, wheezing, cough GI: +abdominal pain, +nausea, +vomiting, +diarrhea. No constipation, melena, hematochezia : No dysuria, hematuria, increased urinary frequency, decreased urinary output MSK: No myalgia, back pain Neuro: No headaches, weakness, paresthesias Skin: No rashes or lesions [facility] Medical History (Updated 09/15/23 @ 10:09 by Pema Morgan PA-C) Nausea Peripheral arterial disease TIA (transient ischemic attack) COPD (chronic obstructive pulmonary disease) Hearing loss Elevated cholesterol HTN (hypertension) Staghorn calculus Nephrolithiasis Enlarged prostate Diabetes mellitus, type II Renal cysts, acquired, bilateral History of kidney stones Rotator cuff impingement syndrome Surgical History History of left-sided carotid endarterectomy Hx of cataract surgery Hx of lithotripsy History of surgery Social History Household Members: None Household Members Other:: 0 Housing: House Are you a primary child adolescent care to a significant other at home: No Do you presently have visiting nurse or other home services: No Patient Tobacco Use Status: Never used Tobacco Tobacco use type: Cigarette Cigarette Packs Per Day: 1 Cigarettes Per Day: 20.0 Years Smoked: 60 e-Cigarette/Vaping Use: Never Used Advance Directives Date on File: 09/29/22 service: No Current occupational status: employed Meds Allergies Allergy/AdvReac Type Severity Reaction Status Date / Time No Known Allergies Allergy Verified 09/14/23 06:03 [No Known Allergies*] Active Medications: Current Medications Acetaminophen (Acetaminophen 325 Mg Tablet) 650 mg PO Q6H PRN PRN Reason: Pain, Mild (Pain Scale 1-3) Heparin Sodium (Porcine) (Heparin Sodium,Porcine 5,000 Unit/Ml Vial) 5,000 unit SUBCUT Q12H NAYAN Sodium Chloride (Ns) 1,000 mls @ 100 mls/hr IVCONT .Q10H NAYAN Ondansetron HCl (Ondansetron Hcl 4 Mg/2 Ml Vial) 4 mg IVPUSH Q8H PRN PRN Reason: Nausea and Vomiting Sodium Chloride (0.9 % Sodium Chloride Flush 3 Ml Syringe) 3 ml IVFLUSH QSHIFT [facility] Home Medications ?Medication ?Instructions ?Recorded ?Confirmed ?Last Taken ?Type aspirin 81 mg tablet,delayed 81 mg PO DAILY 09/24/22 09/14/23 09/13/23 History release glyburide 5 mg tablet 10 mg PO DAILY@0900 09/14/23 09/14/23 09/13/23 History metformin 1,000 mg tablet 1,000 mg PO BID 09/14/23 09/14/23 09/13/23 History Physical Exam 2 Vital Signs and Narrative: Vital Signs: Last Vital Signs Temp 97.9 F 09/14/23 06:02 Pulse 88 09/14/23 06:02 Resp 16 09/14/23 06:02 BP 142/49 H 09/14/23 06:02 Pulse Ox 97 09/14/23 06:02 O2 Del Method Room Air 09/14/23 06:02 BMI result Body Mass Index 20.9 Constitutional - Awake and Alert, No apparent distress Eyes - PERRLA, EOMI Cardiovascular - S1S2, RRR, No edema Respiratory - Normal lung expansion, Normal respiratory effort, No respiratory distress, CTA bilaterally Gastrointestinal - NT / ND; +BS; No rebound or guarding Extremities - no calf tenderness bilaterally, no swelling Skin - Warm/Dry Neurological - Alert & oriented x3 Psychological - Appropriate affect Results Labs 09/15/23 05:06 09/15/23 05:06 Labs: Laboratory Results - last 24 hr 09/14/23 09/14/23 06:25 11:27 MCV 94.2 MCH 31.0 MCHC 32.9 RDW 14.3 Plt Count 336 MPV 9.7 Immature Gran % (Auto) 0.3 Neut % (Auto) 63.1 Lymph % (Auto) 25.0 [place] % (Auto) 8.5 Eos % (Auto) 2.7 Baso % (Auto) 0.4 Lymph # (Auto) 2.8 [place] # (Auto) 1.0 Eos # (Auto) 0.3 Baso # (Auto) 0.1 Abs Immat Gran (auto) 0.03 Absolute Neuts (auto) 7.2 Absolute Nucleated RBC 0.000 Nucleated RBC % (auto) 0.0 Anion Gap 14 Estim Creat Clear Calc 42.3 Estimated GFR > 60 Random Glucose 101 Lactic Acid 1.2 Calcium 9.5 D Total Bilirubin 0.4 AST 31 ALT 42 H Alkaline Phosphatase 83 Total Protein 7.2 Albumin 4.3 Lipase 19 COVID-19 (OCTAVIA) Negative COVID-19 Clin Com See Note Influenza Type A (DIANE) Negative Influenza Type B (DIANE) Negative Influenza A & B Note See Note Imaging Radiologist's Impressions: Impressions Abdomen Ultrasound 09/14/23 09:18 IMPRESSION: Cholelithiasis with thickened gallbladder wall and small amount of pericholecystic fluid. Findings are suggestive of acute cholecystitis. Assessment and Plan (1) Acute cholecystitis: Status: Acute Plan 83-year-old male with history of CAD s/p ALVAREZ 04/2023, hyperlipidemia, BPH, peripheral artery disease, history TIA, hypertension, msk-ldnzzda-smpkdojoc type 2 diabetes admitted for further management of acute cholecystitis. # acute cholecystitis -abdominal ultrasound shows gallbladder wall thickening with cholelithiasis and pericholecystic stranding -mild leukocytosis 11.4, no other SIRS criteria. No sepsis -IV Zosyn (initiated 09/13) -keep NPO for now -general surgery consult -per general surgery, plan per surgeon for lap michelle this afternoon -Pt mod-high risk, Class III risk on revised cardiac index. Given urgent/emergent need for surgery, benefits outweight risk and would recommend proceeding with surgery. Discussed with cardiology -Will need platelets pre-opertively -follow cbc, cultures #CAD s/p ALVAREZ 04/2024 -Hold asa given possible surgical procedure. Pt not taking brilinta due to GI issues -continue statin. Intolerant of bb -Pre-op risk stratification as above #HTN -hold lisinopril for now in case of surgery to prevent post-op hypotension. Resume as appropriate # [id number] type 2 diabetes without hyperglycemia -most recent A1c 7.8% -advanced to diabetic diet, POC glucose -add Admelog SSI as diet advances -hold oral antihyperglycemics # PAD -hold asa as above #Cigarette smoker -cessation advised -patches ordered DVT prophyalxis- scps, add heparin post op DNR/DNI Patient requires inpatient stay at least 2 midnights for management of acute cholecystitis on IV antibiotics with plan for lap cholecystectomy with expert consultation Quality Stroke Does the patient have a stroke diagnosis?: No VTE Prior VTE?: No VTE Risk Level:: Medical - moderate - high VTE Device Contraindication: Treatment Not Indicated VTE Drug Contraindication: N/A - Med Ordered
[2023-09-14] MEDS: Dextrose 5 % and 0.45 % NaCl 1,000 ML 100 ML IVCONT ×2 (12:30→21:49)
--- NOTE | 2023-09-14 15:03 | PHA.MEDREC ---
Pharmacy Consult ? Medication Reconciliation Pharmacy has completed the medication reconciliation. Spoke to patient and confirmed medication list. Patient verified that he is not taking Brilinta anymore.
--- NOTE | 2023-09-14 15:23 | PM.CNGS ---
History of Present Illness Consult details Consult date: 09/14/23 Requesting physician: Shweta Mireles Narrative: 83-year-old male with history of CAD s/p ALVAREZ 04/2023, hyperlipidemia, BPH, peripheral artery disease, history TIA, hypertension, djy-ysaqbzs-elmampufa type 2 diabetes presented to the ED earlier today for evaluation of right upper quadrant discomfort which has been ongoing for 3 weeks and has been worsening. He states the pain is constant and nonradiating but worsens with food intake. He has been trying to limit fatty foods and dairy but reports the pain persists. Last night did have episodes of nausea and vomiting as well as 3 episodes of diarrhea. He denies any fevers or chills. No melena or hematochezia. No hematemesis. He does endorse some heartburn. No shortness of breath, lightheadedness, palpitations, chest pain. Today his white count is elevated at 11 an ultrasound of his gallbladder shows thickened gallbladder wall question of some surrounding pericholecystic fluid. Gallstones are present. Since the beginning of the month he has been in 2 other times where there have been other imaging and signs which have shown possible early cholecystitis. He does complain of regurg symptoms as well as this discomfort in the right upper quadrant area. He has not been on any antacid medication and then in April of 2023 had cardiac event. Review of Systems Review of Systems: Yes all other systems are reviewed and are negative Constitutional: Constitutional: Reports as per [facility] Past Medical History Medical History Peripheral arterial disease TIA (transient ischemic attack) COPD (chronic obstructive pulmonary disease) Hearing loss Elevated cholesterol HTN (hypertension) Staghorn calculus Nephrolithiasis Enlarged prostate Diabetes mellitus, type II Renal cysts, acquired, bilateral History of kidney stones Rotator cuff impingement syndrome Surgical History Surgical History History of left-sided carotid endarterectomy Hx of cataract surgery Hx of lithotripsy History of surgery Social History Social History Household Members: None Household Members Other:: 0 Housing: House Are you a primary child care team lead to a significant other at home: No Do you presently have visiting nurse or other home services: Yes (pt states occ VNA) Patient Tobacco Use Status: Current everyday Tobacco user Tobacco use type: Cigarette Cigarette Packs Per Day: 1 Cigarettes Per Day: 20.0 Years Smoked: 60 e-Cigarette/Vaping Use: Never Used Advance Directives: Yes Advance Directives on File: Yes Advance Directives Date on File: 09/29/22 service: Yes Current occupational status: employed Meds Allergies Allergy/AdvReac Type Severity Reaction Status Date / Time No Known Allergies Allergy Verified 09/14/23 06:03 [No Known Allergies*] Active Medications: Current Medications Acetaminophen (Acetaminophen 325 Mg Tablet) 650 mg PO Q6H PRN PRN Reason: Pain, Mild (Pain Scale 1-3) Atorvastatin Calcium (Atorvastatin Calcium 80 Mg Tablet) 80 mg PO BEDTIME NAYAN Glucose (Glucose Gel 15 Gm Gel..Gram.) 15 gm PO Q15M PRN; Protocol PRN Reason: per Hypoglycemia Standing Ord. Piperacillin Sod/Tazobactam (Sod 4.5 gm/ Sodium Chloride) 100 mls @ 200 mls/hr IV Q6H [facility] Dextrose/Sodium Chloride (D51/2ns) 1,000 mls @ 100 mls/hr IVCONT .Q10H NAYAN Last Admin: 09/14/23 12:30 Dose: 100 mls/hr Dextrose (D10) 250 mls @ 750 mls/hr IV Q15M PRN; Protocol PRN Reason: per Hypoglycemia Standing Ord. Ondansetron HCl (Ondansetron Hcl 4 Mg/2 Ml Vial) 4 mg IVPUSH Q8H PRN PRN Reason: Nausea and Vomiting Sodium Chloride (0.9 % Sodium Chloride Flush 3 Ml Syringe) 3 ml IVFLUSH QSHIFT [facility] Home Medications ?Medication ?Instructions ?Recorded ?Confirmed ?Last Taken ?Type aspirin 81 mg tablet,delayed 81 mg PO DAILY 09/24/22 09/14/23 09/13/23 History release glyburide 5 mg tablet 10 mg PO DAILY@0900 09/14/23 09/14/23 09/13/23 History metformin 1,000 mg tablet 1,000 mg PO BID 09/14/23 09/14/23 09/13/23 History Physical Exam Vital Signs: Vital Signs: Last Vital Signs Temp 97.6 F 09/14/23 12:35 Pulse 78 09/14/23 12:35 Resp 18 09/14/23 12:35 BP 163/47 H 09/14/23 12:35 Pulse Ox 97 09/14/23 12:35 O2 Del Method Room Air 09/14/23 12:35 BMI result Body Mass Index 20.9 Const: General: cooperative, healthy appearing, comfortable and no acute distress Orientation/consciousness: patient oriented x3 HEENT: Other: Nonicteric Resp: Effort & Inspection: normal respiratory effort Auscultation: clear to auscultation bilaterally Cardio: Rate: regular rate Rhythm: regular rhythm GI: Other: His abdomen is soft but he does have guarding diffusely but denies tenderness or pain. No rebound or peritoneal signs active bowel sounds no masses no hernias Skin: Other: Nonicteric Neuro: General: patient oriented x3 Cranial nerves: Yes CN's II-XII intact bilaterally Extrem: General: Yes normal to inspection Psych: Appearance: grossly normal Mental Status: mental status grossly normal Speech and movement: Normal speech and movement present Affect: normal affect Attitude: cooperative Thought process: Normal thought process present Thought content: Normal thought content present Insight: Good insight present (Psych) Judgement: Good judgement present (Psych) Results Labs 09/14/23 06:25 09/14/23 06:25 Labs: Abnormal lab results 09/14/23 Range/Units 06:25 WBC 11.4 H (4.8-10.8) X10*3/uL RBC 4.13 L (4.60-5.80) X10*6/uL Hgb 12.8 L (14.0-18.0) g/dl Hct 38.9 L (42.0-52.0) % Potassium 5.3 H (3.3-5.1) mmol/L Chloride 109 H (96-108) mmol/L Carbon Dioxide 17 L (22-29) mmol/L BUN 21 H (9-16) mg/dL ALT 42 H (0-40) U/L Short CBC 09/14/23 Range/Units 06:25 WBC 11.4 H (4.8-10.8) X10*3/uL Hgb 12.8 L (14.0-18.0) g/dl Hct 38.9 L (42.0-52.0) % Plt Count 336 (160-400) X10*3/uL BMP 09/14/23 06:25 Sodium 135 Potassium 5.3 H Chloride 109 H Carbon Dioxide 17 L BUN 21 H Creatinine 1.03 Calcium 9.5 D Liver Function 09/14/23 Range/Units 06:25 Total Bilirubin 0.4 (0.0-1.0) mg/dL AST 31 (5-37) U/L ALT 42 H (0-40) U/L Alkaline Phosphatase 83 (39-117) U/L Albumin 4.3 (3.5-5.0) g/dL All other labs normal. Imaging US - pelvic: report reviewed Assessment and Plan (1) Acute cholecystitis: Status: Acute Plan The patient is an 83-year-old male with multiple medical issues including diabetes and coronary artery disease status post ACS and stenting the end of last year now with right upper quadrant discomfort usually associated after eating with some nausea vomiting and reflux symptoms. He is pretty convinced this is gallbladder and over the last 2 weeks he has been into the emergency room 3 times complaining of the symptoms with findings by imaging showing changes in the gallbladder consistent with probable early acute cholecystitis. He was supposed to have made an appointment with surgery outpatient but has never quite made it to that appointment with out having symptoms requiring him to come to the emergency room. At this point I do think that he is having some degree of biliary pathology and could benefit from laparoscopic cholecystectomy. However his other medical issues are concerning and affect his operative risk. At this point today there is nothing in his exam or imaging or blood work that make me think that he is becoming septic or that his gallbladder issue is emergent. We appreciate the medical team admitting the patient and plan to carry out conservative care with IV fluids low-fat diet IV antibiotics and get cardiac clearance. If he is still deemed high-risk can consider getting a cholecystostomy tube placed until we can mitigate some of his risk for the surgical procedure. I also think that having him on a proton pump inhibitor would be beneficial for some of his regurg symptoms as well. Plan was discussed with anesthesia team who also concur that patient is higher risk as well as medical team. Cardiology will see him tomorrow and make further recommendations as necessary. Procedures Date of Service Date of Service: 09/14/23
--- NOTE | 2023-09-14 15:30 | PC.NURSE ---
Patient will not require Platelets as not having surgery at this time. Will contact blood bank
[2023-09-14] MEDS: Omeprazole 20 MG CAPSULE.DR PO (16:43)
[2023-09-14] MEDS: Piperacillin Sodium/Tazobactam 4.5 GM in 0.9 % Sodium Chloride 100 ML IV (17:36)
[2023-09-14 17:49] LABS: Glucose, Whole Blood 119 mg/dL (60-115)
--- NOTE | 2023-09-14 19:17 | PC.NURSE ---
Assumed care of pt. Pt da avalos, no acute distress at this time. Admit bed available, report to be completed. IVF running with no issues.
[2023-09-14] MEDS: Atorvastatin Calcium 80 MG TABLET PO (21:19)
[2023-09-14 21:43] LABS: Glucose, Whole Blood 297 mg/dL (60-115)
--- NOTE | 2023-09-14 22:20 | PC.NURSE ---
Addendum entered by Betty Posey RN 09/14/23 22:30: IV fluids changed ,will recheck BS in 2 hrs as advised by Dr. Godinez Original Note: patient BS 297,no sliding scale in place,Dr. Godinez notified
[2023-09-14] MEDS: 0.9 % Sodium Chloride 1,000 ML 80 ML IVCONT (22:35)
--- NOTE | 2023-09-14 22:43 | PC.NURSE ---
BP elevated 168/60 pulse 68 patient did not take his Lisinopril today ,Dr. Godinez notified
[2023-09-14] MEDS: amLODIPine Besylate 5 MG TABLET PO (23:17)
[2023-09-15] MEDS: Piperacillin Sodium/Tazobactam 4.5 GM in 0.9 % Sodium Chloride 100 ML IV ×5 (00:16→22:04)
[2023-09-15 01:11] LABS: Glucose, Whole Blood 290 mg/dL (60-115)
[2023-09-15] MEDS: Insulin Lispro 100 UNIT/ML 3 ML VIAL SUBCUT ×3 (01:12→23:56)
[2023-09-15] MEDS: Omeprazole 20 MG CAPSULE.DR PO (05:43)
[2023-09-15 05:55] LABS: MANUAL DIFF FLAG NO
[2023-09-15 06:01] LABS: Basophils Percent Auto 0.5 % (0-2); Eosinophils Absolute Auto 0.3 X10*3/uL (0.0-0.4); Eosinophils Percent Auto 3.3 % (0-4); Hematocrit 35.2 % (42.0-52.0); Hemoglobin 11.4 g/dl (14.0-18.0); Imm Gran Abs Auto 0.03 X10*3/uL (0.00-0.03); Imm Gran Pct Auto 0.4 % (0.0-0.4); Lymphocytes Absolute Auto 2.4 X10*3/uL (1.2-4.9); Lymphocytes Percent Auto 27.8 % (20-40); Mean Corpuscular HGB Conc 32.4 g/dl (31.0-36.0); Mean Corpuscular Hemoglobin 30.5 pg (27.0-33.0); Mean Corpuscular Volume 94.1 fL (80.0-98.0); Mean Platelet Volume 10.1 fL (9.4-12.4); Monocytes Absolute Auto 1.1 X10*3/uL (0.1-1.2); Monocytes Percent Auto 12.8 % (2-11); Neutrophils Absolute Auto 4.7 x10*3/uL (2.0-8.3); Neutrophils Percent Auto 55.2 % (45-73); Platelet Count 260 X10*3/uL (160-400); Red Blood Count 3.74 X10*6/uL (4.60-5.80); White Blood Count 8.5 X10*3/uL (4.8-10.8)
[2023-09-15 06:17] LABS: Anion Gap 11 (12-20); Blood Urea Nitrogen 18 mg/dL (9-16); Calcium 8.2 mg/dL (8.4-10.2); Carbon Dioxide 21 mmol/L (22-29); Chloride 110 mmol/L (96-108); Creatinine Clr Calc Pharmacy 47.4; Estimated Glomerular Filt Rate > 60; Glucose Random 127 mg/dL (60-115); Potassium 4.7 mmol/L (3.3-5.1); Sodium 137 mmol/L (135-145)
[2023-09-15 06:59] VITALS: BP 130/48; PULSE 60; RESP 12; TEMP 36.7; O2SAT 93
[2023-09-15 07:30] LABS: Glucose, Whole Blood 87 mg/dL (60-115)
[2023-09-15 08:39] LABS: Glucose, Whole Blood 90 mg/dL (60-115)
--- NOTE | 2023-09-15 08:43 | MHC.CLN ---
NUTRITION CONSULT FOR WEIGHT LOSS. REVIEW OF WEIGHT HX SHOWS 4#, 3%, WEIGHT LOSS X ONE MONTH. WEIGHT LOSS NOT SIGNIFICANT. PATIENT IS CURRENTLY NPO. MONITOR FOR DIET ADVANCEMENT.
[2023-09-15] MEDS: Pantoprazole Sodium 40 MG/10 ML VIAL IVPUSH ×2 (08:50→17:28)
[2023-09-15] MEDS: Dextrose 5 % and 0.9 % NaCl 1,000 ML 80 ML IVCONT (08:50)
--- NOTE | 2023-09-15 09:46 | P.CONCA_ITS ---
History of Present Illness History of Present Illness Date of Service: 09/15/23 Chief complaint: acute cholecystitis Narrative: This is a cardiology consultation regarding preoperative evaluation for cholecystectomy. Per admission documentation, diagnosis acute cholecystitis and plans for cholecystectomy today. We have been asked to see him as he underwent coronary artery stenting few months back. Per cardiac catheterization data, underwent PCI to circumflex and RCA with drug-eluting stent on 05/25/2023 for NSTEMI. He states that, since that time he is doing actually quite good. He does not have any chest pain or shortness of breath or in fact any cardiac symptoms. He can ambulate on level ground as well as go up and down stairs with no symptoms whatsoever. With regard to medications, he states he is taking aspirin but does not take the Brilinta as apparently that was causing him some problems and he has stopped it by himself. Review of Systems 2 Review of Systems: Yes all other systems are reviewed and are negative Constitutional: Constitutional: Reports as per HPI and Reports no additional constitutional complaints Eyes: Eyes: Reports as per HPI and Denies no additional eye complaints ENT: Denies system reviewed and no additional complaints, except as documented and Reports as per HPI Cardiovascular: Cardiovascular: Reports as per HPI, Reports no additional cardiovascular complaints, Denies acrocyanosis, Denies cool extremities, Denies chest pain, Denies leg edema, Denies lightheadedness, Denies palpitations and Denies dyspnea Respiratory: Respiratory: Reports as per HPI, Denies no additional respiratory complaints and Denies dyspnea Gastrointestinal: Gastrointestinal: Reports as per HPI and Denies no additional gastrointestinal complaints Genitourinary: Genitourinary: Reports no additional male genitourinary complaints and Reports as per HPI Musculoskeletal: Musculoskeletal: Reports no additional musculoskeletal complaints and Reports as per HPI Integumentary/Breasts: Skin/Breast: Reports system reviewed and no additional complaints, except as docu Neurologic: Reports system reviewed and no additional complaints, except as documented and Reports as per HPI Psychiatric: Psychiatric: Reports no additional psychiatric complaints and Reports as per HPI Endocrine: Endocrine: Reports no additional endocrine complaints, Reports as per HPI and Denies palpitations Hematologic/Lymphatic: Hematologic/Lymphatic: Reports no additional hematologic/lymphatic complaints and Reports as per HPI Allergic/Immunologic: Allergic/Immunologic: Reports no additional allergic/immunologic complaints and Reports as per HPI [facility] Past Medical History Medical History Peripheral arterial disease TIA (transient ischemic attack) COPD (chronic obstructive pulmonary disease) Hearing loss Elevated cholesterol HTN (hypertension) Staghorn calculus Nephrolithiasis Enlarged prostate Diabetes mellitus, type II Renal cysts, acquired, bilateral History of kidney stones Rotator cuff impingement syndrome Family History Pertinent family history: No pertinent family history Surgical History Surgical History History of left-sided carotid endarterectomy Hx of cataract surgery Hx of lithotripsy History of surgery Social History Social History Household Members: None Household Members Other:: 0 Housing: House Are you a primary career advisor to a significant other at home: No Do you presently have visiting nurse or other home services: No Patient Tobacco Use Status: Never used Tobacco Tobacco use type: Cigarette Cigarette Packs Per Day: 1 Cigarettes Per Day: 20.0 Years Smoked: 60 e-Cigarette/Vaping Use: Never Used Advance Directives Date on File: 09/29/22 service: No Current occupational status: employed Meds Allergies Allergy/AdvReac Type Severity Reaction Status Date / Time No Known Allergies Allergy Verified 09/14/23 06:03 [No Known Allergies*] Active Medications: Current Medications Acetaminophen (Acetaminophen 325 Mg Tablet) 650 mg PO Q6H PRN PRN Reason: Pain, Mild (Pain Scale 1-3) Amlodipine Besylate (Amlodipine Besylate 5 Mg Tablet) 5 mg PO BEDTIME [facility]; Protocol Last Admin: 09/14/23 23:17 Dose: 5 mg Atorvastatin Calcium (Atorvastatin Calcium 80 Mg Tablet) 80 mg PO BEDTIME [facility] Last Admin: 09/14/23 21:19 Dose: 80 mg Glucose (Glucose Gel 15 Gm Gel..Gram.) 15 gm PO Q15M PRN; Protocol PRN Reason: per Hypoglycemia Standing Ord. Piperacillin Sod/Tazobactam (Sod 4.5 gm/ Sodium Chloride) 100 mls @ 200 mls/hr IV Q6H [facility] Last Infusion: 09/15/23 06:20 Dose: Infused Dextrose (D10) 250 mls @ 750 mls/hr IV Q15M PRN; Protocol PRN Reason: per Hypoglycemia Standing Ord. Dextrose (D10) 250 mls @ 750 mls/hr IV Q15M PRN; Protocol PRN Reason: per Hypoglycemia Standing Ord. Dextrose/Sodium Chloride (D5ns) 1,000 mls @ 80 mls/hr IVCONT .[id number] [facility] Last Admin: 09/15/23 08:50 Dose: 80 mls/hr Insulin Human Lispro (Insulin Lispro 100 Unit/Ml 3 Ml Vial) 0 unit SUBCUT Q6H [facility]; Protocol Last Admin: 09/15/23 07:32 Dose: Not Given Omeprazole (Omeprazole 20 Mg Capsule.Dr) 20 mg PO BID@0630,1630 [facility] Last Admin: 09/15/23 05:43 Dose: 20 mg Pantoprazole Sodium (Pantoprazole Sodium 40 Mg/10 Ml Vial) 40 mg IVPUSH BID@0630,1630 [facility] Last Admin: 09/15/23 08:50 Dose: 40 mg Sodium Chloride (0.9 % Sodium Chloride Flush 3 Ml Syringe) 3 ml IVFLUSH QSHIFT [facility] Last Admin: 09/15/23 07:22 Dose: Not Given Home Medications ?Medication ?Instructions ?Recorded ?Confirmed ?Last Taken ?Type aspirin 81 mg tablet,delayed 81 mg PO DAILY 09/24/22 09/14/23 09/13/23 History release glyburide 5 mg tablet 10 mg PO DAILY@0900 09/14/23 09/14/23 09/13/23 History metformin 1,000 mg tablet 1,000 mg PO BID 09/14/23 09/14/23 09/13/23 History Physical Exam 2 Vital Signs: Vital Signs: Last Vital Signs Temp 98.0 F 09/15/23 06:59 Pulse 60 09/15/23 06:59 Resp 12 09/15/23 06:59 BP 130/48 L 09/15/23 06:59 Pulse Ox 93 09/15/23 06:59 O2 Del Method Room Air 09/15/23 06:59 BMI result Body Mass Index 20.9 Const: General: comfortable and no acute distress O rientation/consciousness: patient oriented x3 HEENT: Other: Unremarkable Head: Yes normal to inspection Neck: Neck: Yes normal visual inspection Chest: Chest palpation & inspection: normal inspection of the chest Resp: Auscultation: clear to auscultation bilaterally Cardio: Palpation: normal PMI Heart sounds: S1 normal heart sound present, S2 normal heart sound present, no gallops, no murmurs and no rubs GI: Palpation (GI): Soft to palpation Back/Spine/Pelvis: Other: unremarkable Skin: General skin exam: no rashes or lesions noted Neuro: General: patient oriented x3 Extrem: General: Yes normal to inspection Psych: Mental Status: mental status grossly normal Objective Labs and Meds 09/15/23 05:06 09/15/23 05:06 Lab results: Laboratory Results - last 24 hr 09/14/23 09/14/23 09/14/23 11:27 13:20 17:46 WBC RBC Hgb Hct MCV MCH MCHC RDW Plt Count MPV Immature Gran % (Auto) Neut % (Auto) Lymph % (Auto) Lea % (Auto) Eos % (Auto) Baso % (Auto) Lymph # (Auto) Lea # (Auto) Eos # (Auto) Baso # (Auto) Abs Immat Gran (auto) Absolute Neuts (auto) Absolute Nucleated RBC Nucleated RBC % (auto) Sodium Potassium Chloride Carbon Dioxide Anion Gap BUN Creatinine Estim Creat Clear Calc Estimated GFR POC Glucose 119 H Random Glucose Lactic Acid 1.2 Calcium Blood Type A Negative Antibody Screen NEGATIVE 09/14/23 09/15/23 09/15/23 21:34 01:06 05:06 WBC 8.5 RBC 3.74 L Hgb 11.4 L Hct 35.2 L MCV 94.1 MCH 30.5 MCHC 32.4 RDW 14.0 Plt Count 260 MPV 10.1 Immature Gran % (Auto) 0.4 Neut % (Auto) 55.2 Lymph % (Auto) 27.8 Lea % (Auto) 12.8 H Eos % (Auto) 3.3 Baso % (Auto) 0.5 Lymph # (Auto) 2.4 Lea # (Auto) 1.1 Eos # (Auto) 0.3 Baso # (Auto) 0.0 Abs Immat Gran (auto) 0.03 Absolute Neuts (auto) 4.7 Absolute Nucleated RBC 0.000 Nucleated RBC % (auto) 0.0 Sodium 137 Potassium 4.7 Chloride 110 H Carbon Dioxide 21 L Anion Gap 11 L BUN 18 H Creatinine 0.92 Estim Creat Clear Calc 47.4 Estimated GFR > 60 POC Glucose 297 H 290 H Random Glucose 127 H Lactic Acid Calcium 8.2 L D Blood Type Antibody Screen 09/15/23 09/15/23 07:09 08:36 WBC RBC Hgb Hct MCV MCH MCHC RDW Plt Count MPV Immature Gran % (Auto) Neut % (Auto) Lymph % (Auto) Lea % (Auto) Eos % (Auto) Baso % (Auto) Lymph # (Auto) Lea # (Auto) Eos # (Auto) Baso # (Auto) Abs Immat Gran (auto) Absolute Neuts (auto) Absolute Nucleated RBC Nucleated RBC % (auto) Sodium Potassium Chloride Carbon Dioxide Anion Gap BUN Creatinine Estim Creat Clear Calc Estimated GFR POC Glucose 87 90 Random Glucose Lactic Acid Calcium Blood Type Antibody Screen ECG Interpretation: EKG shows sinus rhythm at 69/Min; right bundle-branch block with left anterior fascicular block. Overall, similar to prior. Imaging Radiologist's impression: Impressions Abdomen Ultrasound 09/14/23 09:18 IMPRESSION: Cholelithiasis with thickened gallbladder wall and small amount of pericholecystic fluid. Findings are suggestive of acute cholecystitis. Assessment and Plan (1) Preoperative cardiovascular examination: Status: Acute (2) CAD (coronary artery disease): Status: Acute (3) Stented coronary artery: Status: Acute Plan Echocardiogram from April with LVEF of 60-65%. Basal anterolateral/inferolateral hypokinesis. Otherwise unremarkable. Cardiac catheterization 04/2023-status post PCI to proximal circumflex/proximal RCA. Proximal LAD with 60% stenosis and mid LAD with 50% stenosis. Small diagonal with 70% proximal stenosis. Left main with minimal irregularities. Considering the acute cholecystitis and otherwise stable cardiac status, may proceed with planned surgery. Cardiac risk would be intermediate to high, as he has not been on dual antiplatelet therapy post PCI. Post surgery, can resume his aspirin. When otherwise safe, may use Plavix instead of Brilinta as he reports some side effects. No specific cardiac testing is necessary before surgery and will not influence management. Discussed with patient regarding plan and he agrees. Discussed with Dr. Adams. Procedures Date of Service Date of Service: 09/15/23
--- NOTE | 2023-09-15 09:46 | MHC.CM.PN ---
pt lives alone has no services and does not anticipate needing servies when dcd
--- NOTE | 2023-09-15 10:05 | PM.PNGS ---
Subjective Subjective Date of Service: 09/15/23 <Pema Morgan PA-C - Last Filed: 09/15/23 10:18> 09/15/23 <Jaylan Hawley MD - Last Filed: 09/15/23 13:42> Interval history: Adamantly denies any abdominal pain and states pain is not the problem and reports occasional nausea and diarrhea however all EMR notes state RUQ abd pain for the past 3 weeks/month. He denies any nausea during this stay. He feels hungry. He however is stating that he was told his gallbladder is the problem and wants it out. <Pema Morgan PA-C - Last Filed: 09/15/23 10:18> Physical Exam Vital Signs: Vital Signs: Last Vital Signs Temp 98.0 F 09/15/23 06:59 Pulse 60 09/15/23 06:59 Resp 12 09/15/23 06:59 BP 130/48 L 09/15/23 06:59 Pulse Ox 93 09/15/23 06:59 O2 Del Method Room Air 09/15/23 06:59 BMI result Body Mass Index 20.9 <Pema Morgan PA-C - Last Filed: 09/15/23 10:18> Const: General: comfortable, no acute distress and alert <MOSES Martinez Last Filed: 09/15/23 10:18> Orientation/consciousness: patient oriented x3 <Pema Morgan PA-C - Last Filed: 09/15/23 10:18> Resp: Effort & Inspection: normal respiratory effort and no respiratory distress <Pema Morgan PA-C - Last Filed: 09/15/23 10:18> GI: Inspection: No distended <MOSES Martinez Last Filed: 09/15/23 10:18> Palpation (GI): Soft to palpation, nontender, no guarding and not rigid <MOSES Martinez Last Filed: 09/15/23 10:18> Skin: General skin exam: no rashes or lesions noted and no jaundice <MOSES Martinez Last Filed: 09/15/23 10:18> Neuro: General: patient oriented x3 and moves all extremities <Pema Morgan PA-C - Last Filed: 09/15/23 10:18> Objective Data Active Medications Acetaminophen (Acetaminophen 325 Mg Tablet) 650 mg PO Q6H PRN PRN Reason: Pain, Mild (Pain Scale 1-3) Amlodipine Besylate (Amlodipine Besylate 5 Mg Tablet) 5 mg PO BEDTIME [facility]; Protocol Last Admin: 09/14/23 23:17 Dose: 5 mg Documented By: SALLY Atorvastatin Calcium (Atorvastatin Calcium 80 Mg Tablet) 80 mg PO BEDTIME NAYAN Last Admin: 09/14/23 21:19 Dose: 80 mg Documented By: ESTEPHANIA Glucose (Glucose Gel 15 Gm Gel..Gram.) 15 gm PO Q15M PRN; Protocol PRN Reason: per Hypoglycemia Standing Ord. Piperacillin Sod/Tazobactam (Sod 4.5 gm/ Sodium Chloride) 100 mls @ 200 mls/hr IV Q6H [facility] Last Infusion: 09/15/23 06:20 Dose: Infused Documented By: KASHMIR Dextrose (D10) 250 mls @ 750 mls/hr IV Q15M PRN; Protocol PRN Reason: per Hypoglycemia Standing Ord. Dextrose (D10) 250 mls @ 750 mls/hr IV Q15M PRN; Protocol PRN Reason: per Hypoglycemia Standing Ord. Dextrose/Sodium Chloride (D5ns) 1,000 mls @ 80 mls/hr IVCONT .[id number] [facility] Last Admin: 09/15/23 08:50 Dose: 80 mls/hr Documented By: SALOME Insulin Human Lispro (Insulin Lispro 100 Unit/Ml 3 Ml Vial) 0 unit SUBCUT Q6H [facility]; Protocol Last Admin: 09/15/23 07:32 Dose: Not Given Documented By: SALOME Non-Admin Reason: No Insulin Coverage Omeprazole (Omeprazole 20 Mg Gabi.) 20 mg PO BID@0630,1630 [facility] Last Admin: 09/15/23 05:43 Dose: 20 mg Documented By: KASHMIR Pantoprazole Sodium (Pantoprazole Sodium 40 Mg/10 Ml Vial) 40 mg IVPUSH BID@0630,1630 [facility] Last Admin: 09/15/23 08:50 Dose: 40 mg Documented By: HO.COTEMA Sodium Chloride (0.9 % Sodium Chloride Flush 3 Ml Syringe) 3 ml IVFLUSH QSHIFT [facility] Last Admin: 09/15/23 07:22 Dose: Not Given Documented By: SALOME Non-Admin Reason: IV Running <Pema Morgan PA-C - Last Filed: 09/15/23 10:18> Labs CBC & Chem 7: 09/15/23 05:06 09/15/23 05:06 <Pema Morgan PA-C - Last Filed: 09/15/23 10:18> Labs: Laboratory Results - last 24 hr 09/14/23 09/14/23 09/14/23 11:27 13:20 17:46 MCV MCH MCHC RDW Plt Count MPV Immature Gran % (Auto) Neut % (Auto) Lymph % (Auto) Riley % (Auto) Eos % (Auto) Baso % (Auto) Lymph # (Auto) Riley # (Auto) Eos # (Auto) Baso # (Auto) Abs Immat Gran (auto) Absolute Neuts (auto) Absolute Nucleated RBC Nucleated RBC % (auto) Anion Gap Estim Creat Clear Calc Estimated GFR POC Glucose 119 H Random Glucose Lactic Acid 1.2 Calcium Blood Type A Negative Antibody Screen NEGATIVE 09/14/23 09/15/23 09/15/23 21:34 01:06 05:06 MCV 94.1 MCH 30.5 MCHC 32.4 RDW 14.0 Plt Count 260 MPV 10.1 Immature Gran % (Auto) 0.4 Neut % (Auto) 55.2 Lymph % (Auto) 27.8 Riley % (Auto) 12.8 H Eos % (Auto) 3.3 Baso % (Auto) 0.5 Lymph # (Auto) 2.4 Riley # (Auto) 1.1 Eos # (Auto) 0.3 Baso # (Auto) 0.0 Abs Immat Gran (auto) 0.03 Absolute Neuts (auto) 4.7 Absolute Nucleated RBC 0.000 Nucleated RBC % (auto) 0.0 Anion Gap 11 L Estim Creat Clear Calc 47.4 Estimated GFR > 60 POC Glucose 297 H 290 H Random Glucose 127 H Lactic Acid Calcium 8.2 L D Blood Type Antibody Screen 09/15/23 09/15/23 07:09 08:36 MCV MCH MCHC RDW Plt Count MPV Immature Gran % (Auto) Neut % (Auto) Lymph % (Auto) Riley % (Auto) Eos % (Auto) Baso % (Auto) Lymph # (Auto) Riley # (Auto) Eos # (Auto) Baso # (Auto) Abs Immat Gran (auto) Absolute Neuts (auto) Absolute Nucleated RBC Nucleated RBC % (auto) Anion Gap Estim Creat Clear Calc Estimated GFR POC Glucose 87 90 Random Glucose Lactic Acid Calcium Blood Type Antibody Screen <Pema Morgan PA-C - Last Filed: 09/15/23 10:18> Procedures Date of Service Date of Service: 09/15/23 <Pema Morgan PA-C - Last Filed: 09/15/23 10:18> 09/15/23 <Jaylan Hawley MD - Last Filed: 09/15/23 13:42> Progress Note: A&P Assessment and plan (1) Nausea: Status: Acute <Pema Morgan PA-C - Last Filed: 09/15/23 10:18> Assessment and Plan: Denies any abdominal pain Looks well Abdomen soft, benign, nontender, no Carter's sign He describes symptoms of nausea and diarrhea Symptoms are very atypical for gallbladder disease I explained to him that in view of this, it would be best to hold off on gallbladder surgery especially with this background of coronary artery disease HIDA scan order He looks well overall Seen and examined independently <Jaylan Hawley MD - Last Filed: 09/15/23 13:42> Assessment and Plan: 83 year old male with multiple medical problems with nausea, diarrhea, RUQ abd discomfort for weeks with leukocytosis and ABD US showing cholelithiasis, thickened gallbladder wall and small amount of pericholecystic fluid. Admitted to medicine and started on IV zosyn. He is completely nontender this morning. Will obtain HIDA scan with [facility] today given vagueness of symptoms. Cardiology saw the patient and stated he is stable cardiac status and may proceed with planned surgery if needed. <Pema Morgan PA-C - Last Filed: 09/15/23 10:18> Time Spent With Patient Time: Total time managing care of this patient today ____ minutes. <Pema Morgan PA-C - Last Filed: 09/15/23 10:18> Quality Stroke Does the patient have a stroke diagnosis?: No <Pema Morgan PA-C - Last Filed: 09/15/23 10:18> VTE Prior VTE?: No <Pema Morgan PA-C - Last Filed: 09/15/23 10:18> VTE Risk Level:: Medical - moderate - high <Pema Morgan PA-C - Last Filed: 09/15/23 10:18> VTE Device Contraindication: Treatment Not Indicated <Pema Morgan PA-C - Last Filed: 09/15/23 10:18> VTE Drug Contraindication: N/A - Med Ordered <Pema Morgan PA-C - Last Filed: 09/15/23 10:18>
--- NOTE | 2023-09-15 11:14 | P.PNIM_ITS ---
Subjective Subjective Date of Service: 09/15/23 Interval History: possible acute cholecystitis Review of Systems abd pain seems improving denies nausea aor vomiting Physical Exam 2 Vital Signs: Vital Signs: Last Vital Signs Temp 98.0 F 09/15/23 06:59 Pulse 60 09/15/23 06:59 Resp 12 09/15/23 06:59 BP 130/48 L 09/15/23 06:59 Pulse Ox 93 09/15/23 06:59 O2 Del Method Room Air 09/15/23 06:59 BMI result Body Mass Index 20.9 Appearance: Alert.? Oriented X3.? cvs: rrr, [id number]. res: clear to auscultation ,no rhonchii or wheezing abd: no rebound or guarding ,nt, bs present. ext pulses present , no cyanosis . neuro: axo3 , nonfocal. Objective Data Active Medications Acetaminophen (Acetaminophen 325 Mg Tablet) 650 mg PO Q6H PRN PRN Reason: Pain, Mild (Pain Scale 1-3) Amlodipine Besylate (Amlodipine Besylate 5 Mg Tablet) 5 mg PO BEDTIME [facility]; Protocol Last Admin: 09/14/23 23:17 Dose: 5 mg Documented By: SALLY Atorvastatin Calcium (Atorvastatin Calcium 80 Mg Tablet) 80 mg PO BEDTIME [facility] Last Admin: 09/14/23 21:19 Dose: 80 mg Documented By: ESTEPHANIA Glucose (Glucose Gel 15 Gm Gel..Gram.) 15 gm PO Q15M PRN; Protocol PRN Reason: per Hypoglycemia Standing Ord. Piperacillin Sod/Tazobactam (Sod 4.5 gm/ Sodium Chloride) 100 mls @ 200 mls/hr IV Q6H [facility] Last Infusion: 09/15/23 06:20 Dose: Infused Documented By: KASHMIR Dextrose (D10) 250 mls @ 750 mls/hr IV Q15M PRN; Protocol PRN Reason: per Hypoglycemia Standing Ord. Dextrose (D10) 250 mls @ 750 mls/hr IV Q15M PRN; Protocol PRN Reason: per Hypoglycemia Standing Ord. Insulin Human Lispro (Insulin Lispro 100 Unit/Ml 3 Ml Vial) 0 unit SUBCUT Q6H [facility]; Protocol Last Admin: 09/15/23 07:32 Dose: Not Given Documented By: COTEMA Non-Admin Reason: No Insulin Coverage Omeprazole (Omeprazole 20 Mg Capsule.) 20 mg PO BID@0630,1630 [facility] Last Admin: 09/15/23 05:43 Dose: 20 mg Documented By: KASHMIR Pantoprazole Sodium (Pantoprazole Sodium 40 Mg/10 Ml Vial) 40 mg IVPUSH BID@0630,1630 [facility] Last Admin: 09/15/23 08:50 Dose: 40 mg Documented By: SALOME Sodium Chloride (0.9 % Sodium Chloride Flush 3 Ml Syringe) 3 ml IVFLUSH QSHIFT [facility] Last Admin: 09/15/23 07:22 Dose: Not Given Documented By: SALOME Non-Admin Reason: IV Running Labs 09/15/23 05:06 09/15/23 05:06 Labs: Laboratory Results - last 24 hr 09/14/23 09/14/23 09/14/23 11:27 13:20 17:46 MCV MCH MCHC RDW Plt Count MPV Immature Gran % (Auto) Neut % (Auto) Lymph % (Auto) Mccone % (Auto) Eos % (Auto) Baso % (Auto) Lymph # (Auto) [place]ccone # (Auto) Eos # (Auto) Baso # (Auto) Abs Immat Gran (auto) Absolute Neuts (auto) Absolute Nucleated RBC Nucleated RBC % (auto) Anion Gap Estim Creat Clear Calc Estimated GFR POC Glucose 119 H Random Glucose Lactic Acid 1.2 Calcium Blood Type A Negative Antibody Screen NEGATIVE 09/14/23 09/15/23 09/15/23 21:34 01:06 05:06 MCV 94.1 MCH 30.5 MCHC 32.4 RDW 14.0 Plt Count 260 MPV 10.1 Immature Gran % (Auto) 0.4 Neut % (Auto) 55.2 Lymph % (Auto) 27.8 [place]one % (Auto) 12.8 H Eos % (Auto) 3.3 Baso % (Auto) 0.5 Lymph # (Auto) 2.4 [place]one # (Auto) 1.1 Eos # (Auto) 0.3 Baso # (Auto) 0.0 Abs Immat Gran (auto) 0.03 Absolute Neuts (auto) 4.7 Absolute Nucleated RBC 0.000 Nucleated RBC % (auto) 0.0 Anion Gap 11 L Estim Creat Clear Calc 47.4 Estimated GFR > 60 POC Glucose 297 H 290 H Random Glucose 127 H Lactic Acid Calcium 8.2 L D Blood Type Antibody Screen 09/15/23 09/15/23 07:09 08:36 MCV MCH MCHC RDW Plt Count MPV Immature Gran % (Auto) Neut % (Auto) Lymph % (Auto) [place]one % (Auto) Eos % (Auto) Baso % (Auto) Lymph # (Auto) [place] # (Auto) Eos # (Auto) Baso # (Auto) Abs Immat Gran (auto) Absolute Neuts (auto) Absolute Nucleated RBC Nucleated RBC % (auto) Anion Gap Estim Creat Clear Calc Estimated GFR POC Glucose 87 90 Random Glucose Lactic Acid Calcium Blood Type Antibody Screen Assessment and Plan (1) Nausea: Status: Acute (2) Acute cholecystitis: Status: Acute Assessment and Plan: 83-year-old male with history of CAD s/p ALVAREZ 04/2023, hyperlipidemia, BPH, peripheral artery disease, history TIA, hypertension, [id number] type 2 diabetes admitted for further management of acute cholecystitis. acute cholecystitis-abdominal ultrasound shows gallbladder wall thickening with cholelithiasis and pericholecystic stranding abd pain seems improving leukocytosis resolved, plan: npo ,iv hydration,IV Zosyn (initiated 09/13),surgery follow for plan of surgery. CAD s/p ALVAREZ 04/2024-Hold asa given possible surgical procedure. Pt not taking brilinta due to GI issues -continue statin. Intolerant of bb cardiology eval HTN-bp seems fine hold lisinopril . Resume as appropriate fun-ckelync-aissonaay type 2 diabetes without hyperglycemia -most recent A1c 7.8% -advanced to diabetic diet, POC glucose -add Admelog SSI as diet advances -hold oral antihyperglycemics PAD -hold asa as above Cigarette smoker-cessation advised patches ordered DVT prophyalxis- scd DNR/DNI ongoing hospitlisation need for 48hrs -for acute cholecystitis on IV antibiotics with plan for possible lap cholecystectomy with expert consultation Quality Stroke Does the patient have a stroke diagnosis?: No VTE Prior VTE?: No VTE Risk Level:: Medical - moderate - high VTE Device Contraindication: Treatment Not Indicated VTE Drug Contraindication: N/A - Med Ordered
[2023-09-15 11:18] LABS: Glucose, Whole Blood 162 mg/dL (60-115)
[2023-09-15 16:00] VITALS: BP 150/62; PULSE 71; RESP 16; TEMP 36.2; O2SAT 94
[2023-09-15 16:26] LABS: Glucose, Whole Blood 217 mg/dL (60-115)
[2023-09-15] MEDS: 0.9 % Sodium Chloride Flush 3 ML SYRINGE IVFLUSH ×2 (17:28→23:50)
[2023-09-15 19:03] VITALS: BP 161/69; PULSE 72; RESP 16; TEMP 36.8; O2SAT 94
[2023-09-15 19:51] LABS: Glucose, Whole Blood 299 mg/dL (60-115)
[2023-09-15] MEDS: Atorvastatin Calcium 80 MG TABLET PO (22:04)
[2023-09-15 22:05] VITALS: BP 161/69
[2023-09-15] MEDS: amLODIPine Besylate 5 MG TABLET PO (22:05)
[2023-09-15 23:51] VITALS: BP 150/59; PULSE 67; RESP 14; TEMP 37.1; O2SAT 95
[2023-09-16] LABS: Glucose, Whole Blood 229 mg/dL (60-115)
[2023-09-16] MEDS: Omeprazole 20 MG CAPSULE.DR PO (05:48)
[2023-09-16] MEDS: Pantoprazole Sodium 40 MG/10 ML VIAL IVPUSH (05:48)
[2023-09-16] MEDS: Piperacillin Sodium/Tazobactam 4.5 GM in 0.9 % Sodium Chloride 100 ML IV (05:49)
[2023-09-16 07:18] LABS: Glucose, Whole Blood 163 mg/dL (60-115)
[2023-09-16 07:24] VITALS: BP 164/58; PULSE 73; RESP 16; TEMP 36.4; O2SAT 96
--- NOTE | 2023-09-16 07:39 | P.PNGS_ITS ---
Subjective Subjective Date of Service: 09/16/23 <Pema Morgan PA-C - Last Filed: 09/16/23 07:42> 09/16/23 <Jaylan Hawley MD - Last Filed: 09/16/23 08:06> Interval history: HIDA negative yesterday. Tolerating solid diet without nausea or any abd discomfort. Feels great. Wants to go home. <Pema Morgan PA-C - Last Filed: 09/16/23 07:42> Physical Exam 2 Vital Signs: Vital Signs: Last Vital Signs Temp 97.5 F 09/16/23 07:24 Pulse 73 09/16/23 07:24 Resp 16 09/16/23 07:24 BP 150/59 H 09/15/23 23:51 Pulse Ox 96 09/16/23 07:24 O2 Del Method Room Air 09/16/23 07:24 BMI result Body Mass Index 20.9 <MOSES Martinez Last Filed: 09/16/23 07:42> Const: General: comfortable, no acute distress and alert <Pema Morgan PA-C - Last Filed: 09/16/23 07:42> Orientation/consciousness: patient oriented x3 <Pema Morgan PA-C - Last Filed: 09/16/23 07:42> GI: Inspection: No distended <Pema Morgan PA-C - Last Filed: 09/16/23 07:42> Palpation (GI): Soft to palpation, nontender and no guarding <Pema Morgan PA-C - Last Filed: 09/16/23 07:42> Skin: General skin exam: no rashes or lesions noted and no jaundice < Pema Morgan PA-C - Last Filed: 09/16/23 07:42> Neuro: General: patient oriented x3 <MOSES Martinez Last Filed: 09/16/23 07:42> Objective Data Active Medications Acetaminophen (Acetaminophen 325 Mg Tablet) 650 mg PO Q6H PRN PRN Reason: Pain, Mild (Pain Scale 1-3) Amlodipine Besylate (Amlodipine Besylate 5 Mg Tablet) 5 mg PO BEDTIME NAYAN; Protocol Last Admin: 09/15/23 22:05 Dose: 5 mg Documented By: SERAFIN Atorvastatin Calcium (Atorvastatin Calcium 80 Mg Tablet) 80 mg PO BEDTIME [facility] Last Admin: 09/15/23 22:04 Dose: 80 mg Documented By: SERAFIN Glucose (Glucose Gel 15 Gm Gel..Gram.) 15 gm PO Q15M PRN; Protocol PRN Reason: per Hypoglycemia Standing Ord. Piperacillin Sod/Tazobactam (Sod 4.5 gm/ Sodium Chloride) 100 mls @ 200 mls/hr IV Q6H [facility] Last Infusion: 09/16/23 06:23 Dose: Infused Documented By: SERAFIN Dextrose (D10) 250 mls @ 750 mls/hr IV Q15M PRN; Protocol PRN Reason: per Hypoglycemia Standing Ord. Dextrose (D10) 250 mls @ 750 mls/hr IV Q15M PRN; Protocol PRN Reason: per Hypoglycemia Standing Ord. Insulin Human Lispro (Insulin Lispro 100 Unit/Ml 3 Ml Vial) 0 unit SUBCUT Q6H [facility]; Protocol Last Admin: 09/15/23 23:56 Dose: 4 unit Documented By: SERAFIN Omeprazole (Omeprazole 20 Mg Capsule.Dr) 20 mg PO BID@0630,1630 [facility] Last Admin: 09/16/23 05:48 Dose: 20 mg Documented By: SERAFIN Pantoprazole Sodium (Pantoprazole Sodium 40 Mg/10 Ml Vial) 40 mg IVPUSH BID@0630,1630 [facility] Last Admin: 09/16/23 05:48 Dose: 40 mg Documented By: SERAFIN Sodium Chloride (0.9 % Sodium Chloride Flush 3 Ml Syringe) 3 ml IVFLUSH QSHIFT [facility] Last Admin: 09/15/23 23:50 Dose: 3 ml Documented By: SERAFIN <Pema Morgan PA-C - Last Filed: 09/16/23 07:42> Labs CBC & Chem 7: 09/15/23 05:06 09/15/23 05:06 <Pema Morgan PA-C - Last Filed: 09/16/23 07:42> Labs: Laboratory Results - last 24 hr 09/15/23 09/15/23 09/15/23 08:36 11:04 16:19 POC Glucose 90 162 H 217 H 09/15/23 09/15/23 09/16/23 19:05 23:53 07:01 POC Glucose 299 H 229 H 163 H <Pema Morgan PA-C - Last Filed: 09/16/23 07:42> Microbiology Microbiology Results: Microbiology 09/14/23 11:29 Blood Culture - Preliminary Blood - Venous No growth after 24 hours. 09/14/23 11:27 Blood Culture - Preliminary Blood - Venous No growth after 24 hours. <Pema Morgan PA-C - Last Filed: 09/16/23 07:42> Procedures Date of Service Date of Service: 09/16/23 <Pema Morgan PA-C - Last Filed: 09/16/23 07:42> 09/16/23 <Jaylan Hawley MD - Last Filed: 09/16/23 08:06> Progress Note: A&P Assessment and plan (1) Nausea: Status: Acute <Pema Morgan PA-C - Last Filed: 09/16/23 07:42> Assessment and Plan: pt denies abdl pain comfortable tolerating regular diet HIDA scan unremarkable rest of care as per Hospitalist seen and examined independently <Jaylan Hawley MD - Last Filed: 09/16/23 08:06> Assessment and Plan: HIDA negative for acute cholecystitis, biliary dyskinesia. Tolerating solid diet. No acute surgical issues. Stable for dc from surgical standpoint. Patient comfortable with plan. <Pema Morgan PA-C - Last Filed: 09/16/23 07:42> Time Spent With Patient Time: Total time managing care of this patient today ____ minutes. <Pema Morgan PA-C - Last Filed: 09/16/23 07:42> Quality Stroke Does the patient have a stroke diagnosis?: No <Pema Morgan PA-C - Last Filed: 09/16/23 07:42> VTE Prior VTE?: No <MOSES Martinez Last Filed: 09/16/23 07:42> VTE Risk Level:: Medical - moderate - high <Pema Morgan PA-C - Last Filed: 09/16/23 07:42> VTE Device Contraindication: Treatment Not Indicated <Pema Morgan PA-C - Last Filed: 09/16/23 07:42> VTE Drug Contraindication: N/A - Med Ordered <Pema Morgan PA-C - Last Filed: 09/16/23 07:42>
[2023-09-16] MEDS: Insulin Lispro 100 UNIT/ML 3 ML VIAL SUBCUT (07:59)
[2023-09-16] MEDS: 0.9 % Sodium Chloride Flush 3 ML SYRINGE IVFLUSH (08:01)
--- NOTE | 2023-09-16 09:32 | PM.DS ---
DS: Providers Provider Date of Service: 09/16/23 Date of admission: 09/14/23 11:31 Date of discharge: 09/16/23 Primary care physician: Jemal Bustillos MD Consults: 09/14/23 10:34 Consult to General Surgery Stat Consulting Provider: [facility] [facility] Reason for consultation: acute cholecystitis Has provider been notified: Yes 09/14/23 11:35 Consult to General Surgery Routine Consulting Provider: [facility] [place] [facility] Reason for consultation: acute cholecystitis 09/14/23 12:21 Consult to Cardiology Routine Consulting Provider: [facility] [place] [facility] Reason for consultation: pre-op, recent cardiac cath 05/23 Attending physician on discharge: Nick Adams Discharging clinician: Nick Adams DS: Diagnosis Discharge Diagnosis (1) Nausea: Status: Acute DS: Summary Hospital Course Hospital Course: 83-year-old male with history of CAD s/p ALVAREZ 04/2023, hyperlipidemia, BPH, peripheral artery disease, history TIA, hypertension, etm-[id number] type 2 diabetes presented to the ED earlier today for evaluation of right upper quadrant discomfort which has been ongoing for 3 weeks and has been worsening. He states the pain is constant and nonradiating but worsens with food intake. He has been trying to limit fatty foods and dairy but reports the pain persists. Last night did have episodes of nausea and vomiting as well as 3 episodes of diarrhea. He denies any fevers or chills. No melena or hematochezia. No hematemesis. He does endorse some heartburn. No shortness of breath, lightheadedness, palpitations, chest pain. On arrival, vital signs stable though slightly hypertensive at 142/49. Mild leukocytosis of 11.4. Has a stable normocytic anemia with H/H 12.8/38.9%. Renal function is baseline. Electrolyte levels significant for mild hyperkalemia 5.3, chloride 109, CO2 17. Lactic acid 1.2. Hepatic function normal. Negative for COVID-19, influenza. Abdominal ultrasound shows cholelithiasis with thickened gallbladder wall and small amount of pericholecystic fluid suggestive of acute cholecystitis. This is his 3rd visit to the ER in the last month for the same. ED discussed case with general surgery recommending admission to hospitalist service with surgical consult. He will be managed conservatively with IV Zosyn at this time with plan for possible IR cholecystostomy. In the ED, started on IV Zosyn and given 4 mg morphine and ondansetron. Hospital course: Patient was admitted for possible? Question of cholecystitis: CT abdomen showed cholelithiasis without cholecystitis, ultrasound abdomen question of cholecystitis, HIDA scan was done-initially patient was started on bowel rest, on antibiotics-seen by surgery: Patient asymptomatic, leukocytosis resolved, HIDA scan is negative for cholecystitis. Recommended add PPI-we added famotidine since patient will be on Plavix. Currently patient is asymptomatic, leukocytosis resolved, blood culture negative at 24 hours, no fever, HIDA scan is negative for cholecystitis acute, surgeries impression is possible biliary dyskinesia since HIDA scan is negative, will defer antibiotics. plan: Patient has history of coronary artery disease recent stent: Cardiology recommended to add Plavix because patient does not want to take Brilinta. Also added famotidine 20 mg daily as above. Follow-up with PCP and Cardiology outpatient. Above was discussed with the patient in detail length, time spent 40 minute. Time Attestation Total time managing care of this patient today: 40 mintues. Discharge Coordination Time (in mins): 40 min Quality: Safe Use of Opioids Does Pt have an Active Cancer Diagnosis on the Problem List?: No Quality: Stroke Does the patient have a stroke diagnosis?: No Physical Exam Vital Signs: Vital Signs: Last Vital Signs Temp 97.5 F 09/16/23 07:24 Pulse 73 09/16/23 07:24 Resp 16 09/16/23 07:24 BP 164/58 H 09/16/23 07:24 Pulse Ox 96 09/16/23 07:24 O2 Del Method Room Air 09/16/23 07:24 BMI result Body Mass Index 20.9 Appearance: Alert.? Oriented X3.? cvs: rrr, [id number]. res: clear to auscultation ,no rhonchii or wheezing abd: no rebound or guarding ,nt, bs present. ext pulses present , no cyanosis . neuro: axo3 , nonfocal. DS: Data Data Completed and Pending Labs on day of discharge: Laboratory Results - last 24 hr 09/15/23 09/15/23 09/15/23 11:04 16:19 19:05 POC Glucose 162 H 217 H 299 H 09/15/23 09/16/23 23:53 07:01 POC Glucose 229 H 163 H Preliminary micro results at discharge 09/14/23 11:29 Blood Culture - Preliminary Blood - Venous No growth after 24 hours. 09/14/23 11:27 Blood Culture - Preliminary Blood - Venous No growth after 24 hours. Imaging Chest x-ray: Radiologist's impression: ITS Impressions Abdomen Ultrasound 09/14/23 09:18 IMPRESSION: Cholelithiasis with thickened gallbladder wall and small amount of pericholecystic fluid. Findings are suggestive of acute cholecystitis. Hepatobiliary Scan Nuclear Medicine 09/15/23 16:00 IMPRESSION: Visualization of the gallbladder is evidence of a patent cystic duct and strong evidence against the diagnosis of acute cholecystitis. The common bile duct is patent. Gallbladder emptying and ejection fraction are normal. Liver function appears normal. Discharge Plan Discharge Anticipated Discharge Date/Time: 09/16/23 09:12 Patient Disposition: Home, Self-Care Discharge Diagnosis: possible bilary diskinesia Referrals: Jemal Bustillos MD [Primary Care Provider] - 1 Week Discharge Medications: New clopidogrel [Plavix] 75 mg tablet 75 mg PO DAILY Qty: 30 0RF famotidine 20 mg tablet 20 mg PO DAILY Qty: 30 0RF Continued aspirin 81 mg Tablet,Delayed Release (Dr/Ec) 81 mg PO DAILY glyburide 5 mg tablet 10 mg PO DAILY@0900 metformin 1,000 mg tablet 1,000 mg PO BID lisinopril 20 mg tablet 20 mg PO DAILY Qty: 30 5RF atorvastatin 80 mg tablet 80 mg PO BEDTIME Qty: 30 5RF Rx Instructions: Cholesterol-lowering medication Discharge Orders: Discharge Order (Routine); Ordered 09/16/23 Ordered By: Nick Adams Diet: Advance to usual diet Activity on Discharge: As tolerated Stand Alone Forms: Patient Portal Discharge page Print Language: Tajik Care Plan Goals: Patient was admitted for possible? Question of cholecystitis: CT abdomen showed cholelithiasis without cholecystitis, ultrasound abdomen question of cholecystitis, HIDA scan was done-initially patient was started on bowel rest, on antibiotics-seen by surgery: Patient asymptomatic, leukocytosis resolved, HIDA scan is negative for cholecystitis. Recommended add PPI-we added famotidine since patient will be on Plavix. Currently patient is asymptomatic, leukocytosis resolved, blood culture negative at 24 hours, no fever, HIDA scan is negative for cholecystitis acute, surgeries impression is possible biliary dyskinesia since HIDA scan is negative, will defer antibiotics. Above was discussed with the patient in detail length, time spent 40 minute. Health Concerns: Patient has history of coronary artery disease recent stent: Cardiology recommended to add Plavix because patient does not want to take Brilinta. Also added famotidine 20 mg daily as above. Follow-up with PCP and Cardiology outpatient. Plan of Treatment: As above. Assessment: As above. Discharge Date/Time: 09/16/23 10:24
--- NOTE | 2023-09-16 13:40 | MHC.CM.PN ---
IMM 09/15/23 Patient is discharged to home self-care. His son provided transportation home.
== END 2023-09-16 10:24 | disposition home or self-care (01) | DRG 446 ==
LOC: HO.ED 11:02 → HO.EDOVER 11:46 → HO.S3 19:10
PROVIDERS: Physician Assistant; Admitting Provider Physician Assistant; Emergency Provider Emergency Medicine; PCP Internal Medicine Medical Oncology; Visit Provider Internal Medicine
DX: K82.8 Other specified diseases of gallbladder (principal); K80.20 Calculus of gallbladder without cholecystitis without obstruction; I25.10 Atherosclerotic heart disease of native coronary artery without angina pectoris; Z95.5 Presence of coronary angioplasty implant and graft; E78.5 Hyperlipidemia, unspecified; Z66 Do not resuscitate; E11.51 Type 2 diabetes mellitus with diabetic peripheral angiopathy without gangrene; N40.0 Benign prostatic hyperplasia without lower urinary tract symptoms; F17.210 Nicotine dependence, cigarettes, uncomplicated; Z71.6 Tobacco abuse counseling; Z20.822 Contact with and (suspected) exposure to COVID-19; Z79.02 Long term (current) use of antithrombotics/antiplatelets; Z79.82 Long term (current) use of aspirin; Z79.84 Long term (current) use of oral hypoglycemic drugs; Z79.899 Other long term (current) drug therapy
CPT/HCPCS: 36415; 76705; 78227; 80048; 80053; 82947; 83605; 83690; 85025; 86850; 86900; 86901; 87040; 87502; 87635; 93005; 99285; A9537; C9113; J2270; J2405; J2543; J2805

== ENCOUNTER → 2023-09-14 09:11 | Outpatient (BNV) | payer MEDICARE, MEDICAID, SELFPAY | PROVIDERS: Admitting Provider Physician Assistant; Emergency Provider Emergency Medicine; PCP Internal Medicine Medical Oncology; Visit Provider Internal Medicine | DX: I45.10 Unspecified right bundle-branch block (principal); I44.4 Left anterior fascicular block; I45.2 Bifascicular block | CPT/HCPCS: 93010 ==

== ENCOUNTER → 2023-09-14 11:31 | Outpatient (BNV) | payer MEDICARE, MEDICAID, SELFPAY | PROVIDERS: Admitting Provider Physician Assistant; Emergency Provider Emergency Medicine; PCP Internal Medicine Medical Oncology; Visit Provider Physician Assistant | DX: R11.0 Nausea (principal) | CPT/HCPCS: 99223; 99232; 99239 ==

== ENCOUNTER → 2023-09-14 11:31 | Outpatient (BNV) | payer MEDICARE, MEDICAID, SELFPAY | PROVIDERS: Admitting Provider Physician Assistant; Emergency Provider Emergency Medicine; PCP Internal Medicine Medical Oncology; Visit Provider Surgery | DX: R11.0 Nausea (principal) | CPT/HCPCS: 99223; 99232 ==

== ENCOUNTER → 2023-09-14 11:31 | Outpatient (BNV) | payer MEDICARE, MEDICAID, SELFPAY | PROVIDERS: Admitting Provider Physician Assistant; Emergency Provider Emergency Medicine; PCP Internal Medicine Medical Oncology; Visit Provider Internal Medicine | DX: Z01.810 Encounter for preprocedural cardiovascular examination (principal); I25.10 Atherosclerotic heart disease of native coronary artery without angina pectoris; Z95.5 Presence of coronary angioplasty implant and graft | CPT/HCPCS: 99223 ==

== ENCOUNTER 2023-09-21 09:56 | Outpatient (REF) | payer MEDICARE, MEDICAID, SELFPAY ==
--- NOTE | ~2023-09-21 | XR_ITS ---
EXAMINATION: XR CHEST CLINICAL INFORMATION: Tobacco dependence infiltrate, difficulty breathing for one week. COMPARISON: 05/22/2023 TECHNIQUE: 2 views of the chest were obtained. FINDINGS: The lungs are well inflated. Degenerative changes in the thoracic spine. Heart size within normal limits. No new focal consolidation to suggest pneumonia. No pleural effusion. Redemonstration of moderate compression fractures of [id number] thoracic vertebral bodies. XR/XR chest 2V IMPRESSION: No evidence of pneumonia.
== END 2023-09-21 09:57 | disposition home or self-care (01) ==
LOC: HO.XRAY 09:56
PROVIDERS: PCP Internal Medicine Medical Oncology; Visit Provider Internal Medicine Medical Oncology
DX: F17.200 Nicotine dependence, unspecified, uncomplicated (principal)
CPT/HCPCS: 71046

== ENCOUNTER 2023-10-01 16:50 | Inpatient (IN) | payer MEDICARE, MEDICAID, SELFPAY ==
--- NOTE | ~2023-10-01 | CT_ITS ---
EXAMINATION: CT CHEST WITHOUT CONTRAST CLINICAL INFORMATION: Shortness of breath COMPARISON: Chest x-ray October 01, [address] May 01, 2014 TECHNIQUE: Multidetector volumetric CT imaging of the chest was done. Axial MIP volume rendering provided. Sagittal and coronal reformatted images were obtained. This CT examination was performed using dose optimization techniques as appropriate, variously including the following: *Automated exposure control *Adjustment of mA and/or kV according to patient size (this includes techniques or standardized protocols for targeted exams where dose is matched to indication/reason for exam; i.e. extremities or head) *Use of iterative reconstruction technique DLP: 221 mGy-cm FINDINGS: Central airways are patent. Lungs are well aerated. Mild to moderate emphysematous changes are present. There is no lobar consolidation. No pleural effusion or pneumothorax. A few tiny pulmonary micronodules are noted throughout both lungs largest measuring 3 mm, for example within the posterior left lower lobe (image [id number], series 4). The heart is normal in size. Coronary artery calcifications are present. There is no pericardial effusion no gross mediastinal or hilar lymphadenopathy appreciated on today's noncontrast imaging. Normal caliber thoracic aorta. No pathologically enlarged axillary lymph nodes. Visualized portions of the upper abdomen demonstrate diffusely decreased liver attenuation suggesting hepatic steatosis. Bilateral renal cysts are incompletely visualized. Moderate diffuse degenerative changes of the spine. CT/CT chest wo IV con IMPRESSION: 1. Mild to moderate emphysema. 2. A few tiny pulmonary micronodules are noted, largest measuring 3 mm. 3. Hepatic steatosis. Fleischner guidelines were followed.
--- NOTE | ~2023-10-01 | XR_ITS ---
EXAMINATION: XR CHEST CLINICAL INFORMATION: Dyspnea. COMPARISON: Chest radiograph dated 09/21/2023. TECHNIQUE: 2 views of the chest were obtained. FINDINGS: There is a round opacity measuring 7 mm over the right lower lung for which a pulmonary nodule is not excluded. The heart is normal in size. There is no consolidation. No pleural effusion or pneumothorax. No acute osseous abnormality. XR/XR chest 2V IMPRESSION: No acute cardiopulmonary disease. There is a round opacity measuring 7 mm over the right lower lung for which a pulmonary nodule is not excluded. Further evaluation with chest CT is recommended on a nonemergent basis to evaluate this.
--- NOTE | 2023-10-01 16:52 | ECG_ITS ---
Test Reason : CHEST PAIN Blood Pressure : / mmHG Vent. Rate : 100 BPM Atrial Rate : 100 BPM P-R Int : 132 ms QRS Dur : 108 ms QT Int : 352 ms P-R-T Axes : 073 -61 067 degrees QTc Int : 454 ms Normal sinus rhythm Incomplete right bundle branch block Left anterior fascicular block Cannot rule out Anterior infarct (cited on or before 22-MAY-2023) Abnormal ECG When compared with ECG of 14-SEP-2023 11:06, Questionable change in initial forces of Septal leads Referred By: Christina Gray Electronically Signed By:SAIMA JARA
[2023-10-01 17:01] VITALS: BP 143/51; PULSE 98; RESP 18; TEMP 36.4; O2SAT 96; BMI 19.7
--- NOTE | 2023-10-01 17:04 | ED_ITS ---
HPI - General Adult General Chief complaint: Dyspnea Stated complaint: chest congestion pain, trouble breathing Time Seen by Provider: 10/01/23 20:26 Source: patient Mode of arrival: ambulatory Limitations: no limitations History of Present Illness HPI narrative: Patient is an 83 year old assigned male at with a history of HTN, HLD, stents, CAD, NSTEMI, and cigarette smoking resenting to the emergency department today with shortness of breath and chest pain. Patient states that when walking, he is at a 10/10 of chest heaviness and shortness of breath but at rest he is at an 8/10 and can breathe better. Patient denies any dizziness, lightheadedness, abdominal pain, nausea, vomiting, fever, chills, blurry vision, double vision, loss of vision, back pain, night sweats, pain with urination, increased urinary frequency, increased urinary urgency, blood in his urine or stool, syncope or a near syncopal episode, recent trauma or falls, bowel incontinence, bladder incontinence, bowel retention, bladder retention, or any other complaints at this time. Onset (ago): week(s) (1) Location: chest Severity: moderate Severity scale (1-10): 8 Quality: other (heaviness) Pain Consistency: constant Relieving factors: none Exacerbating factors: movement Associated symptoms: chest pain and shortness of breath Treatments prior to arrival: none Related Data Home Medications ?Medication ?Instructions ?Recorded ?Confirmed aspirin 81 mg tablet,delayed 81 mg PO DAILY 09/24/22 10/01/23 release glyburide 5 mg tablet 10 mg PO DAILY@0900 09/14/23 10/01/23 metformin 1,000 mg tablet 1,000 mg PO BID@1200,1700 09/14/23 10/01/23 Previous Rx's ?Medication ?Instructions ?Recorded atorvastatin 80 mg tablet 80 mg PO BEDTIME #30 tabs 06/10/23 lisinopril 20 mg tablet 20 mg PO DAILY #30 tabs 06/10/23 clopidogrel 75 mg tablet (Plavix) 75 mg PO DAILY #30 tabs 09/16/23 famotidine 20 mg tablet 20 mg PO DAILY #30 tabs 09/16/23 Allergies Allergy/AdvReac Type Severity Reaction Status Date / Time No Known Allergies Allergy Verified 10/01/23 17:06 [No Known Allergies*] Review of Systems 2 Constitutional: Constitutional: Reports no additional constitutional complaints, Denies chills, Denies fever(s) and Denies night sweats Eyes: Eyes: Reports no additional eye complaints, Denies blurry vision, Denies change in vision, Denies diplopia, Denies eye discharge, Denies loss of vision and Denies eye pain ENT: Denies dizziness Cardiovascular: Cardiovascular: Reports no additional cardiovascular complaints, Reports chest pain, Denies lightheadedness, Denies Loss of Consciousness and Reports dyspnea Respiratory: Respiratory: Reports no additional respiratory complaints and Reports dyspnea Gastrointestinal: Gastrointestinal: Reports no additional gastrointestinal complaints, Denies abdominal pain, Denies melena, Denies hematochezia, Denies change in bowel habits and Denies change in stool character Genitourinary: Genitourinary: Reports no additional male genitourinary complaints, Denies hematuria, Denies oliguria, Denies difficulty urinating, Denies dysuria, Denies urinary frequency, Denies urinary hesitancy, Denies urinary incontinence and Denies urinary urgency Musculoskeletal: Musculoskeletal: Reports no additional musculoskeletal complaints, Denies numbness and Denies tingling Neurologic: Denies dizziness, Denies loss of vision, Denies numbness and Denies tingling Psychiatric: Psychiatric: Reports no additional psychiatric complaints Endocrine: Endocrine: Reports no additional endocrine complaints Hematologic/Lymphatic: Hematologic/Lymphatic: Reports no additional hematologic/lymphatic complaints Allergic/Immunologic: Allergic/Immunologic: Reports no additional allergic/immunologic complaints [facility] Past Medical History Attestation statement: The following information was validated with the patient. Source: old records reviewed and nursing notes reviewed Medical History Acute cholecystitis Nausea Peripheral arterial disease TIA (transient ischemic attack) COPD (chronic obstructive pulmonary disease) Hearing loss Elevated cholesterol HTN (hypertension) Staghorn calculus Nephrolithiasis Enlarged prostate Diabetes mellitus, type II Renal cysts, acquired, bilateral History of kidney stones Rotator cuff impingement syndrome Surgical History History of left-sided carotid endarterectomy Hx of cataract surgery Hx of lithotripsy History of surgery Social History Social History Household Members: None Household Members Other:: 0 Housing: House Are you a primary healthcare educator to a significant other at home: No Do you presently have visiting nurse or other home services: No Patient Tobacco Use Status: Never used Tobacco Tobacco use type: Cigarette Cigarette Packs Per Day: 1 Cigarettes Per Day: 20.0 Years Smoked: 60 Smoked in Last 30 Days: Yes e-Cigarette/Vaping Use: Never Used Use of substances other than those prescribed or required for medical reasons: No Advance Directives: Yes Advance Directives on File: Yes Advance Directives Date on File: 09/29/22 Do you have a plan to hurt others: No Plan service: No Current occupational status: employed Physical Exam ED Vital Signs: Vital Signs - 24 hr 10/01/23 17:01 10/01/23 20:08 10/01/23 20:48 Temperature 97.5 F 97.8 F Pulse Rate 98 78 80 Respiratory Rate 18 20 20 Blood Pressure 143/51 H 140/55 H Pulse Oximetry 96 96 Oxygen Delivery Method Room Air Room Air 10/01/23 21:24 10/01/23 21:34 Temperature 98.0 F Pulse Rate 90 Respiratory Rate 18 Blood Pressure 152/53 H Pulse Oximetry 95 96 Oxygen Delivery Method Room Air BMI result Body Mass Index 19.7 Const General: cooperative, no acute distress, alert and awake Nutritional Appearance: well nourished Orientation/consciousness: patient oriented x3 Limitations: no limitations HENMT Head: Yes normal to inspection and Yes atraumatic Ears: hearing grossly normal bilaterally and external ears normal General nose exam: Normal external nose present, no nasal discharge noted and no epistaxis Face and sinus: Yes normal facial exam, No abrasion and No laceration Mouth: Normal oral and palatal mucosa present, no drooling and no muffled voice Eyes General: appearance normal, both eyes and all related structures Periorbital: periorbital findings normal Eyelids: Yes eyelids normal Conjunctivae: conjunctivae normal Pupils: Equal, round and reactive pupils present EOM: EOMs intact bilaterally Neck Neck: Yes normal visual inspection, Yes full ROM and Yes no lymphadenopathy Chest Chest palpation & inspection: normal inspection of the chest Resp Other: when ambulating - patient has significant respiratory effort but remains at 95% on RA Effort & Inspection: normal respiratory effort and able to speak in complete sentences Auscultation: diminished lung sounds diffuse GI Inspection: Yes normal to inspection Neuro General: patient oriented x3 and moves all extremities Cranial nerves: Yes Equal, round and reactive pupils present Cognition (Neuro): normal cognition Motor exam (neuro): 5/5 motor strength present throughout Sensory Exam: Normal double simultaneous stimulation for sensation Coordination: [id number] test normal Extrem General: Yes normal to inspection, Yes full ROM and Yes capillary refill normal Psych Appearance: grossly normal Mental Status: mental status grossly normal Affect: normal affect Attitude: cooperative Thought process: Normal thought process present Thought content: Normal thought content present Insight: Good insight present (Psych) Course Course Course Narrative: This is a rapid medical exam performed by Salina Gray NP: Additional HPI, ROS, PE not included below will be deferred to primary provider. Patient is an 83-year-old male with history hyperlipidemia, HTN, coronary artery stents, CAD, NSTEMI presenting to the emergency department with complaint shortness of breath and chest congestion for the past week. Denies fevers. Denies chest pain or palpitations. Smokes half pack per day. No known history of COPD, lung sounds diminished throughout, oxygen 97-100% on room air in triage. Plan: EKG, labs, CXR Medications Administered Generic Name Dose Route Start Last Admin Trade Name Freq PRN Reason Stop Dose Admin Heparin Sodium/Sodium Chloride 25,000 unit in 250 mls @ 0 mls/hr 10/01/23 21:30 10/01/23 22:04 Heparin Sodium,Porcine/1/2ns IVCONT 12 units/kg/hr .Q0M NAYAN 6.43 mls/hr Administration Protocol Per Protocol Discontinued Medications Generic Name Dose Route Start Last Admin Trade Name Freq PRN Reason Stop Dose Admin Albuterol/Ipratropium 3 ml 10/01/23 20:46 10/01/23 20:48 Albuterol/Iprat 2.5/0.5mg 3 Ml Ampul.Neb INHALE 10/01/23 20:47 3 ml ONCE ONE Administration Heparin Sodium (Porcine) 3,200 unit 10/01/23 21:28 10/01/23 22:02 Heparin Sodium,Porcine 5,000 Unit/Ml Vial 60 unit/kg (3200 unit) 10/01/23 21:29 3,200 unit IVPUSH Administration ONCE ONE Morphine Sulfate 4 mg 10/01/23 21:28 10/01/23 22:06 Morphine Sulfate 4 Mg/Ml Cartridge IVPUSH 10/01/23 21:29 Not Given ONCE ONE Protocol Nitroglycerin 0.4 mg 10/01/23 21:28 10/01/23 22:03 Nitroglycerin 0.4 Mg Tab.Subl SUBLINGUAL 10/01/23 21:29 0.4 mg ONCE ONE Administration Ondansetron HCl 4 mg 10/01/23 21:28 10/01/23 22:06 Ondansetron Hcl 4 Mg/2 Ml Vial IVPUSH 10/01/23 21:29 Not Given ONCE ONE Medical Decision Making Medical Decision Making [facility] Narrative: Patient is an 83 year old assigned male at with a history of HTN, HLD, stents, CAD, NSTEMI, and cigarette smoking presenting to the emergency department today with chest pain and shortness of breath. Patient's physical exam was as noted in the physical exam portion of this note. Patient was markedly short of breath with exertion though his oxygen saturation remained >95%. Patient's blood work showed an elevated WBC count of 14.7, initial trop of 14.8 and a repeat trop of 16.9. Patient's BNP was 70. Patient's EKG showed non- specific changes. Patient's chest x-ray showed no acute process but did show a 7mm nodule over the right lower lung that radiology states a nonemergent CT scan can be done to further evaluate. I spoke to the de icer element winder who recommended treating as unstable angina with IV heparin, Morphine, and SL nitro. I spoke to the hospitalist who agreed to admission. I explained my physical exam findings as well as all test results to the patient. I answered all questions asked by the patient. Patient verbalized agreement and understanding with this treatment plan and admission. Differential Diagnosis Differential Diagnoses: The differential diagnosis associated with the presentation includes ACS NSTEMI STEMI Angina Unstable angina Admission/Observation Consideration of admission/observation: Escalation of care including admission/observation considered Patient is admitted. Consult Healthcare Provider Management of the patient was discussed with: Hospitalist (agreed to admission as noted in the MDM Rationale portion of this note.) and Batch Mixer (spoke to the de icer element winder as noted in the MDM Rationale portion of this note.) Lab Data [facility] Lab Attestation statement: I reviewed the patient's lab results. My interpretation of these results are in the MDM Rationale portion of this note. 10/01/23 21:37 10/01/23 17:29 Labs: Lab Results 10/01/23 10/01/23 10/01/23 Range/Units 17:29 20:21 21:37 WBC 11.9 H 14.7 H (4.8-10.8) X10*3/uL RBC 4.04 L 3.79 L (4.60-5.80) X10*6/uL Hgb 12.6 L 11.8 L (14.0-18.0) g/dl Hct 38.0 L 35.6 L (42.0-52.0) % MCV 94.1 93.9 (80.0-98.0) fL MCH 31.2 31.1 (27.0-33.0) pg MCHC 33.2 33.1 (31.0-36.0) g/dl RDW 14.4 14.4 (11.0-16.0) % Plt Count 524 H D 487 H (160-400) X10*3/uL MPV 9.5 9.6 (9.4-12.4) fL Immature Gran % (Auto) 0.7 H (0.0-0.4) % Neut % (Auto) 62.3 (45-73) % Lymph % (Auto) 23.5 (20-40) % Morrow % (Auto) 10.2 (2-11) % Eos % (Auto) 3.0 (0-4) % Baso % (Auto) 0.3 (0-2) % Lymph # (Auto) 2.8 (1.2-4.9) X10*3/uL Morrow # (Auto) 1.2 (0.1-1.2) X10*3/uL Eos # (Auto) 0.4 (0.0-0.4) X10*3/uL Baso # (Auto) 0.0 (0.0-0.2) X10*3/uL Abs Immat Gran (auto) 0.08 H (0.00-0.03) X10*3/uL Absolute Neuts (auto) 7.4 (2.0-8.3) x10*3/uL Absolute Nucleated RBC 0.000 0.000 (0.0-0.012) X10*3/uL Nucleated RBC % (auto) 0.0 0.0 (0.0-0.2) /100WBC PT 13.9 H 14.0 H (11.1-13.3) SEC INR 1.1 1.2 H (0.9-1.1) aPTT Heparin Protocol 31.9 L (53-77.9) SEC Sodium 139 (135-145) mmol/L Potassium 5.0 (3.3-5.1) mmol/L Chloride 102 (96-108) mmol/L Carbon Dioxide 22 (22-29) mmol/L Anion Gap 20 (12-20) BUN 20 H (9-16) mg/dL Creatinine 1.25 (0.5-1.4) mg/dL Estim Creat Clear Calc 32.7 Estimated GFR 55 Random Glucose 159 H (60-115) mg/dL Calcium 9.3 D (8.4-10.2) mg/dL Total Bilirubin 0.2 (0.0-1.0) mg/dL AST 16 (5-37) U/L ALT 28 (0-40) U/L Alkaline Phosphatase 96 (39-117) U/L Troponin I High Sens 14.8 16.9 (<3.5-35.0) ng/L B-Natriuretic Peptide 70 (<100) pg/mL Total Protein 6.9 (6.5-8.0) g/dL Albumin 3.8 (3.5-5.0) g/dL Influenza Type A (PCR) NEGATIVE (Negative) Influenza Type B (PCR) NEGATIVE (Negative) RSV RNA Qual (PCR) NEGATIVE (Negative) SARS-CoV-2 RNA (RT-PCR) NEGATIVE (Negative) Independent Interpretation I performed an independent interpretation of an: EKG and Plain X-Ray Interpretation: My interpretation is in agreement with the radiologist's impression of this imaging study. - EXAMINATION: XR CHEST CLINICAL INFORMATION: Dyspnea. COMPARISON: Chest radiograph dated 09/21/2023. TECHNIQUE: 2 views of the chest were obtained. FINDINGS: There is a round opacity measuring 7 mm over the right lower lung for which a pulmonary nodule is not excluded. The heart is normal in size. There is no consolidation. No pleural effusion or pneumothorax. No acute osseous abnormality. XR/XR chest 2V IMPRESSION: No acute cardiopulmonary disease. There is a round opacity measuring 7 mm over the right lower lung for which a pulmonary nodule is not excluded. Further evaluation with chest CT is recommended on a nonemergent basis to evaluate this. Dictated By: Gavin Shafer Jr, DO Signed By: Electronically signed by Gavin Shafer Jr, DO 10/01/232103 - Vent. Rate: 100 BPM Atrial Rate: 100 BPM P-R Int: 132 ms QRS Dur: 108 ms QT Int: 352 ms P-R-T Axes: 073 -61 067 degrees QTc Int: 454 ms Normal sinus rhythm Incomplete right bundle branch block Left anterior fascicular block Cannot rule out Anterior infarct (cited on or before 22-MAY-2023) Abnormal ECG When compared with ECG of 14-SEP-2023 11:06, Questionable change in initial forces of Septal leads DD/ [id number] Radiology Impression Discussion of test interpretation with radiology: I have reviewed the radiologist's reading. Chronic Conditions Patient?s care impacted by: Hypertension Scores Heart Score History: -1- moderately suspicious ECG: -1- non specific repolarization disturbance Age: -2- > or = 65 Risk factory: -2- 3 or more risk factors or treated atherosclerosis Troponin: -1- >1 - <3x normal limit Score: 7 Risk: 50.1% Critical Care Time Critical Care Time Critical Care Time: Yes Total Critical Care Time: 129 Attestation: I spent 129 minutes of Critical Care Time with this patient. This does not include time spent on separately reported billable procedures. Discharge Plan Discharge Prescriptions: No Action aspirin 81 mg Tablet,Delayed Release (Dr/Ec) 81 mg PO DAILY glyburide 5 mg tablet 10 mg PO DAILY@0900 metformin 1,000 mg tablet 1,000 mg PO BID@1200,1700 clopidogrel [Plavix] 75 mg tablet 75 mg PO DAILY Qty: 30 0RF famotidine 20 mg tablet 20 mg PO DAILY Qty: 30 0RF lisinopril 20 mg tablet 20 mg PO DAILY Qty: 30 5RF atorvastatin 80 mg tablet 80 mg PO BEDTIME Qty: 30 5RF Rx Instructions: Cholesterol-lowering medication Print Language: Swedish
[2023-10-01 17:34] LABS: MANUAL DIFF FLAG NO
[2023-10-01 17:37] LABS: Basophils Percent Auto 0.3 % (0-2); Eosinophils Absolute Auto 0.4 X10*3/uL (0.0-0.4); Hemoglobin 12.6 g/dl (14.0-18.0); Imm Gran Abs Auto 0.08 X10*3/uL (0.00-0.03); Imm Gran Pct Auto 0.7 % (0.0-0.4); Lymphocytes Absolute Auto 2.8 X10*3/uL (1.2-4.9); Lymphocytes Percent Auto 23.5 % (20-40); Mean Corpuscular HGB Conc 33.2 g/dl (31.0-36.0); Mean Corpuscular Hemoglobin 31.2 pg (27.0-33.0); Mean Corpuscular Volume 94.1 fL (80.0-98.0); Mean Platelet Volume 9.5 fL (9.4-12.4); Monocytes Absolute Auto 1.2 X10*3/uL (0.1-1.2); Monocytes Percent Auto 10.2 % (2-11); Neutrophils Absolute Auto 7.4 x10*3/uL (2.0-8.3); Neutrophils Percent Auto 62.3 % (45-73); Platelet Count 524 X10*3/uL (160-400); Red Blood Count 4.04 X10*6/uL (4.60-5.80); Red Cell Distribution Width 14.4 % (11.0-16.0); White Blood Count 11.9 X10*3/uL (4.8-10.8)
[2023-10-01 17:46] LABS: INTERNATIONAL NORM RATIO 1.1 (0.9-1.1); Prothrombin Time 13.9 SEC (11.1-13.3)
[2023-10-01 18:02] LABS: Alanine Aminotransferase 28 U/L (0-40); Albumin Level 3.8 g/dL (3.5-5.0); Alkaline Phosphatase 96 U/L (39-117); Anion Gap 20 (12-20); Aspartate Amino Transferase 16 U/L (5-37); Bilirubin Total 0.2 mg/dL (0.0-1.0); Blood Urea Nitrogen 20 mg/dL (9-16); Calcium 9.3 mg/dL (8.4-10.2); Carbon Dioxide 22 mmol/L (22-29); Chloride 102 mmol/L (96-108); Creatinine Clr Calc Pharmacy 32.7; Estimated Glomerular Filt Rate 55; Glucose Random 159 mg/dL (60-115); Sodium 139 mmol/L (135-145); Total Protein 6.9 g/dL (6.5-8.0)
[2023-10-01 18:07] LABS: B Type Natriuretic Peptide 70 pg/mL (<100)
[2023-10-01 18:08] LABS: Troponin-I High Sensitivity 14.8 ng/L (<3.5-35.0)
[2023-10-01 18:11] LABS: Influenza A PCR NEGATIVE (Negative); Influenza B PCR NEGATIVE (Negative); Resp Syncy Virus RNA Qual PCR NEGATIVE (Negative); SARS COV2 PCR INHOUSE NEGATIVE (Negative)
[2023-10-01 20:08] VITALS: BP 140/55; PULSE 78; RESP 20; TEMP 36.6; O2SAT 96
--- NOTE | 2023-10-01 20:09 | MHC.EDTECH ---
Patient came in from the waiting room,changed into hospital attire,placed on the ekg monitor tech,vitals taken,call rios in reach
[2023-10-01 20:46] LABS: Troponin-I High Sensitivity 16.9 ng/L (<3.5-35.0)
[2023-10-01 20:48] VITALS: PULSE 80; RESP 20; O2SAT 96
[2023-10-01] MEDS: Albuterol/Iprat 2.5/0.5MG 3 ML AMPUL.NEB INHALE (20:48)
[2023-10-01 21:24] VITALS: O2SAT 95
[2023-10-01 21:34] VITALS: BP 152/53; PULSE 90; RESP 18; TEMP 36.7; O2SAT 96
--- NOTE | 2023-10-01 21:35 | MHC.EDTECH ---
Hourly rounds and vitals completed,belongings list completed,patient has 113.00 Crum in wallet refused safe,copy placed in chart.
[2023-10-01 21:44] LABS: Hematocrit 35.6 % (42.0-52.0); Hemoglobin 11.8 g/dl (14.0-18.0); Mean Corpuscular HGB Conc 33.1 g/dl (31.0-36.0); Mean Corpuscular Hemoglobin 31.1 pg (27.0-33.0); Mean Corpuscular Volume 93.9 fL (80.0-98.0); Mean Platelet Volume 9.6 fL (9.4-12.4); Platelet Count 487 X10*3/uL (160-400); Red Blood Count 3.79 X10*6/uL (4.60-5.80); Red Cell Distribution Width 14.4 % (11.0-16.0); White Blood Count 14.7 X10*3/uL (4.8-10.8)
[2023-10-01 21:50] LABS: INTERNATIONAL NORM RATIO 1.2 (0.9-1.1)
[2023-10-01 21:53] LABS: PTT Heparin Drip 31.9 SEC (53-77.9)
[2023-10-01] MEDS: Heparin Sodium,Porcine 5,000 UNIT/ML VIAL 3200 UNIT IVPUSH (22:02)
[2023-10-01] MEDS: Nitroglycerin 0.4 MG TAB.SUBL SUBLINGUAL (22:03)
[2023-10-01] MEDS: Heparin Sodium,Porcine/1/2NS 25,000 UNIT/250 ML IV.SOLN 6.43 UNIT IVCONT (22:04)
--- NOTE | 2023-10-01 22:12 | PHA.MEDREC ---
Pharmacy Consult ? Medication Reconciliation Pharmacy has completed the medication reconciliation. Patient had list of medications that mach claim history. Venus Garrett, CeceliaD
--- NOTE | 2023-10-01 23:35 | PM.IMHP ---
History of Present Illness Date of Service: 10/01/23 Attending physician on admission: Rivera Garner Chief Complaint: Shortness on breath Antolin Perdomo is 83 years old man with past medical history significant for CAD (cardiac cath Apr 2023 --> severe two-vessel CAD, s/p PCI of LCx and RCA) , hyperlipidemia. HFpEF, TIA, PVD and essential hypertension presents to the emergency department complaining of one-week history of worsening shortness of breath associated with cough of clear sputum. He stated that the shortness of breath worse with exertion. He denies chest pain (just chest heaviness with exertion only). Denies associated fevers, chills or chills.. Denies headache, dizziness, palpitations, abdominal pain, nausea, vomiting or diarrhea. Did not report any acute urinary symptoms. He is ongoing tobacco smoker (smokes 8-10 cigarettes daily). Denied alcohol abuse or illicit drug use. In the ED, he was found to have stable vital signs. Blood workup showed leukocytosis of 14.7. Hemoglobin is 11.8 and platelets 487. There are no significant electrolyte imbalances. Creatinine is 1.25. LFTs are normal. Viral testing for influenza, COVID-19 and RSV is negative. ECG showed NSR and bifascicular block (similar to prior). CXR showed no acute cardiopulmonary disease; it did show a 7 mm opacity over the right lower lobe (? Pulmonary nodule). Chart review: JOE Apr 2023 - Normal LV function EF 60-65%, impaired relaxation with basilar inferolateral anterolateral hypokinesis in the circumflex territory. No gross pericardial effusion or significant valve disease. ED tx: Morphine 4 mg IV, Zofran 4 mg IV, Nitrostat 0.4 mg sublingual and DuoNeb 3 ml. Review of Systems Review of Systems: All 12 systems were reviewed and normal except as noted in HPI. [facility] Medical History Acute cholecystitis Nausea Peripheral arterial disease TIA (transient ischemic attack) COPD (chronic obstructive pulmonary disease) Hearing loss Elevated cholesterol HTN (hypertension) Staghorn calculus Nephrolithiasis Enlarged prostate Diabetes mellitus, type II Renal cysts, acquired, bilateral History of kidney stones Rotator cuff impingement syndrome Surgical History History of left-sided carotid endarterectomy Hx of cataract surgery Hx of lithotripsy History of surgery Social History Household Members: None Household Members Other:: 0 Housing: House Are you a primary career counselor to a significant other at home: No Do you presently have visiting nurse or other home services: No Patient Tobacco Use Status: Never used Tobacco Tobacco use type: Cigarette Cigarette Packs Per Day: 1 Cigarettes Per Day: 20.0 Years Smoked: 60 Smoked in Last 30 Days: Yes e-Cigarette/Vaping Use: Never Used Use of substances other than those prescribed or required for medical reasons: No Advance Directives: Yes Advance Directives on File: Yes Advance Directives Date on File: 09/29/22 Do you have a plan to hurt others: No Plan service: No Current occupational status: employed Meds Allergies Allergy/AdvReac Type Severity Reaction Status Date / Time No Known Allergies Allergy Verified 10/01/23 17:06 [No Known Allergies*] Active Medications: Current Medications Aspirin (Aspirin Enteric Coated 81 Mg Tablet.Dr) 81 mg PO DAILY [facility] Atorvastatin Calcium (Atorvastatin Calcium 80 Mg Tablet) 80 mg PO BEDTIME [facility] Clopidogrel Bisulfate (Clopidogrel Bisulfate 75 Mg Tablet) 75 mg PO DAILY [facility] Famotidine (Famotidine 20 Mg Tablet) 20 mg PO DAILY [facility] Glucose (Glucose Gel 15 Gm Gel..Gram.) 15 gm PO Q15M PRN; Protocol PRN Reason: per Hypoglycemia Standing Ord. Glyburide (Glyburide 5 Mg Tablet) 10 mg PO DAILY@0900 [facility] Heparin Sodium (Porcine) (Heparin Sodium,Porcine 5,000 Unit/Ml Vial) 2,100 unit 40 unit/kg (2100 unit) IVPUSH PROTOCOL BOLUS PRN; Protocol PRN Reason: 40 unit/kg - Heparin Protocol Heparin Sodium (Porcine) (Heparin Sodium,Porcine 5,000 Unit/Ml Vial) 4,300 unit 80 unit/kg (4300 unit) IVPUSH PROTOCOL BOLUS PRN; Protocol PRN Reason: 80 unit/kg - Heparin Protocol Heparin Sodium/Sodium Chloride (Heparin Sodium,Porcine/1/2ns) 25,000 unit in 250 mls @ 0 mls/hr IVCONT .Q0M NAYAN; Protocol Last Admin: 10/01/23 22:04 Dose: 12 units/kg/hr, 6.43 mls/hr Dextrose (D10) 250 mls @ 750 mls/hr IV Q15M PRN; Protocol PRN Reason: per Hypoglycemia Standing Ord. Insulin Human Lispro (Insulin Lispro 100 Unit/Ml 3 Ml Vial) 0 unit SUBCUT QIDACHS [facility]; Protocol Levalbuterol HCl (Levalbuterol Hcl 1.25 Mg/3 Ml Vial.Neb) 1.25 mg INHALE Q4H [facility] Last Admin: 10/01/23 23:33 Dose: Not Given Lisinopril (Lisinopril 20 Mg Tablet) 20 mg PO DAILY [facility]; Protocol Methylprednisolone Sodium Succinate (Methylprednisolone Sod Succ 125 Mg/2 Ml Vial) 80 mg IVPUSH ONCE ONE Stop: 10/01/23 23:32 Sodium Chloride (0.9 % Sodium Chloride Flush 3 Ml Syringe) 3 ml IVFLUSH QSHIFT [facility] Home Medications ?Medication ?Instructions ?Recorded ?Confirmed ?Last Taken ?Type aspirin 81 mg tablet,delayed 81 mg PO DAILY 09/24/22 10/01/23 10/01/23 History release glyburide 5 mg tablet 10 mg PO DAILY@0900 09/14/23 10/01/23 10/01/23 History metformin 1,000 mg tablet 1,000 mg PO BID@1200,1700 09/14/23 10/01/23 10/01/23 History Physical Exam Vital Signs and Narrative: Vital Signs: Last Vital Signs Temp 98.0 F 10/01/23 21:34 Pulse 90 10/01/23 21:34 Resp 18 10/01/23 21:34 BP 152/53 H 10/01/23 21:34 Pulse Ox 96 10/01/23 21:34 O2 Del Method Room Air 10/01/23 21:34 BMI result Body Mass Index 19.7 Constitutional - Awake and Alert, No apparent distress. Pleasant and cooperative. Afebrile. Constantly coughing. HEENT - Pupils equally round. Normal sclerae. Heart - Tachycardia. Regular rhythm. No murms. Lungs - Normal lung expansion, Normal respiratory effort, No respiratory distress. Tachypnea. Bilateral rhonchi. No crackles. No wheezing. Abdomen - NT / ND; +BS; No rebound or guarding Extremities - No calf tenderness bilaterally, no swelling Musculoskeletal - Normal inspection, normal ROM Skin - Warm/Dry Neurological - Alert & oriented x3. No gross focal weakness. Normal speech. Psychological - Appropriate affect Results Labs 10/01/23 21:37 10/01/23 17:29 Labs: Laboratory Results - last 24 hr 10/01/23 10/01/23 10/01/23 17:29 20:21 21:37 MCV 94.1 93.9 MCH 31.2 31.1 MCHC 33.2 33.1 RDW 14.4 14.4 Plt Count 524 H D 487 H MPV 9.5 9.6 Immature Gran % (Auto) 0.7 H Neut % (Auto) 62.3 Lymph % (Auto) 23.5 [place] % (Auto) 10.2 Eos % (Auto) 3.0 Baso % (Auto) 0.3 Lymph # (Auto) 2.8 [place] # (Auto) 1.2 Eos # (Auto) 0.4 Baso # (Auto) 0.0 Abs Immat Gran (auto) 0.08 H Absolute Neuts (auto) 7.4 Absolute Nucleated RBC 0.000 0.000 Nucleated RBC % (auto) 0.0 0.0 PT 13.9 H 14.0 H INR 1.1 1.2 H aPTT Heparin Protocol 31.9 L Anion Gap 20 Estim Creat Clear Calc 32.7 Estimated GFR 55 Random Glucose 159 H Calcium 9.3 D Total Bilirubin 0.2 AST 16 ALT 28 Alkaline Phosphatase 96 Troponin I High Sens 14.8 16.9 B-Natriuretic Peptide 70 Total Protein 6.9 Albumin 3.8 Influenza Type A (PCR) NEGATIVE Influenza Type B (PCR) NEGATIVE RSV RNA Qual (PCR) NEGATIVE SARS-CoV-2 RNA (RT-PCR) NEGATIVE Imaging Radiologist's Impressions: Impressions Chest X-Ray 10/01/23 19:04 IMPRESSION: No acute cardiopulmonary disease. There is a round opacity measuring 7 mm over the right lower lung for which a pulmonary nodule is not excluded. Further evaluation with chest CT is recommended on a nonemergent basis to evaluate this. Assessment and Plan (1) Hyperlipidemia: Qualifiers: Hyperlipidemia type: unspecified Qualified Code(s): E78.5 - Hyperlipidemia, unspecified Status: Acute (2) HTN (hypertension): Qualifiers: Hypertension type: primary hypertension Qualified Code(s): I10 - Essential (primary) hypertension Status: Acute (3) CAD (coronary artery disease): Qualifiers: Coronary Disease-Associated Artery/Lesion type: [place] artery [place] vs. transplanted heart: [place] heart Associated angina: unspecified whether angina present Qualified Code(s): I25.10 - Atherosclerotic heart disease of [place] coronary artery without angina pectoris Status: Acute Plan Antolin Perdomo is 83 years old man with past medical history significant for CAD (cardiac cath Apr 2023 --> severe two-vessel CAD, s/p PCI of LCx and RCA) admitted with: Shortness of breath/Dyspnea and productive cough. Likely acute exacerbation of chronic obstructive pulmonary disease/acute bronchitis (unclear if pt has an official diagnosis of COPD). Admit to hospitalist service. Telemetry. Pulse oximetry. Supplemental oxygen to keep O2 sats > 90%. Start bronchodilator therapy and IV steroids. Start treatment with azithromycin 500 mg IV daily. Pulmonology consult. Chest heaviness in the setting of underlying CAD. There is a concern for unstable angina. Continue heparin IV infusion per cardiology recommendations. Continue Plavix, aspirin and statin. Nitro SL q5 min X3. Check TTE. Cardiology consult for further recommendations. Hyperlipidemia. Continue statin. HFpEF. Doubt acute decompensation. CXR showed no pulmonary edema. BNP normal. TIA and PVD. Continue Plavix, aspirin statin. Type 2 diabetes mellitus. Continue glyburide. BG checks before meals at bedtime. Diabetic diet. Essential hypertension. Continue lisinopril. Tobacco smoking. Tobacco cessation education. Code status: Full DVT prophylaxis: Heparin GI prophylaxis: PPI Patient will need hospitalization for at least 2 midnights for shortness of breath and productive cough management with supplemental oxygen as needed, bronchodilator therapy, IV steroids and empiric IV antibiotic therapy. Patient will also need evaluation by subspecialties for further recommendations. Quality Stroke Does the patient have a stroke diagnosis?: No VTE Prior VTE?: No VTE Risk Level:: Medical - moderate - high VTE Device Contraindication: Treatment Not Indicated VTE Drug Contraindication: N/A - Med Ordered
[2023-10-01] MEDS: Azithromycin 500 MG in 0.9 % Sodium Chloride 250 ML 125 MG IV (23:58)
[2023-10-01] MEDS: methylPREDNISolone Sod Succ 125 MG/2 ML VIAL 80 MG IVPUSH (23:59)
[2023-10-02] VITALS (18 sets, daily range): BP systolic 121–176; BP diastolic 47–68; PULSE 61–88; RESP 14–20; TEMP 36.2–36.9; O2SAT 92–98
--- NOTE | 2023-10-02 00:41 | MHC.EDTECH ---
Hourly rounds and vitals completed,patient is resting at this time,call rios in reach
[2023-10-02] MEDS: levalbuterol HCL 1.25 MG/3 ML VIAL.NEB INHALE ×5 (03:38→19:22)
--- NOTE | 2023-10-02 03:59 | MHC.EDTECH ---
Patient urinated 300MLS in urinal,hourly rounds and vitals completed
[2023-10-02 04:26] LABS: Basophils Percent Auto 0.2 % (0-2); Eosinophils Absolute Auto 0.1 X10*3/uL (0.0-0.4); Eosinophils Percent Auto 0.5 % (0-4); Hematocrit 35.1 % (42.0-52.0); Hemoglobin 11.7 g/dl (14.0-18.0); Imm Gran Abs Auto 0.11 X10*3/uL (0.00-0.03); Imm Gran Pct Auto 0.9 % (0.0-0.4); Lymphocytes Absolute Auto 0.7 X10*3/uL (1.2-4.9); MANUAL DIFF FLAG SCAN; Mean Corpuscular HGB Conc 33.3 g/dl (31.0-36.0); Mean Corpuscular Hemoglobin 31.3 pg (27.0-33.0); Mean Corpuscular Volume 93.9 fL (80.0-98.0); Mean Platelet Volume 9.7 fL (9.4-12.4); Monocytes Absolute Auto 0.3 X10*3/uL (0.1-1.2); Monocytes Percent Auto 2.1 % (2-11); Neutrophils Absolute Auto 11.1 x10*3/uL (2.0-8.3); Neutrophils Percent Auto 90.3 % (45-73); Platelet Count 436 X10*3/uL (160-400); Red Blood Count 3.74 X10*6/uL (4.60-5.80); Red Cell Distribution Width 14.5 % (11.0-16.0); SCAN SMEAR FLAG 1; White Blood Count 12.3 X10*3/uL (4.8-10.8)
[2023-10-02 04:34] LABS: PTT Heparin Drip 65.6 SEC (53-77.9)
[2023-10-02 04:42] LABS: Anion Gap 18 (12-20); Blood Urea Nitrogen 24 mg/dL (9-16); Calcium 8.8 mg/dL (8.4-10.2); Carbon Dioxide 21 mmol/L (22-29); Chloride 105 mmol/L (96-108); Creatinine Clr Calc Pharmacy 32.4; Estimated Glomerular Filt Rate 54; Glucose Random 302 mg/dL (60-115); Potassium 5.5 mmol/L (3.3-5.1); Sodium 138 mmol/L (135-145)
[2023-10-02 04:44] LABS: SLIDE REVIEW VERIFIED
[2023-10-02 04:47] LABS: Troponin-I High Sensitivity 13.9 ng/L (<3.5-35.0)
--- NOTE | 2023-10-02 05:06 | PC.NURSE ---
at 0414 PTT 65.6. no bolus, no rate change, and check PTT in 6hrs per instructions in MAR. Heparin continues to run at 12u/kg/hr. PTT to be checked again at 10am. order placed.
--- NOTE | 2023-10-02 05:52 | MHC.EDTECH ---
Hourly rounds and vitals completed,patient urinated 200MLS in urinal,call rios in reach
[2023-10-02] MEDS: Insulin Lispro 100 UNIT/ML 3 ML VIAL SUBCUT ×4 (07:24→20:28)
[2023-10-02] MEDS: Sodium Zirconium Cyclosilicate 10 GM POWD.PACK PO (07:24)
[2023-10-02] MEDS: Famotidine 20 MG TABLET 10 MG PO (07:25)
[2023-10-02] MEDS: Aspirin Enteric Coated 81 MG TABLET.DR PO (07:25)
[2023-10-02] MEDS: Clopidogrel Bisulfate 75 MG TABLET PO (07:26)
[2023-10-02] MEDS: 0.9 % Sodium Chloride Flush 3 ML SYRINGE IVFLUSH ×2 (07:27→16:23)
[2023-10-02 08:24] LABS: Glucose, Whole Blood 308 mg/dL (60-115)
[2023-10-02] MEDS: Omeprazole 20 MG CAPSULE.DR PO ×2 (08:54→16:32)
[2023-10-02] MEDS: glyBURIDE 5 MG TABLET 10 MG PO (08:54)
--- NOTE | 2023-10-02 09:55 | PC.NURSE ---
This RN assumed care @ 0700, Pt resting quietly, reports no pain at all, pt seems confused about why they are here Dr. Adams at bedside and explained the reasoning for admit. Heparin does unchanged, aPTT within normal range x2 per protocol. Meds given per MAR, VSS. Pt resting quietly, Call rios with in reach.
[2023-10-02 10:13] LABS: INTERNATIONAL NORM RATIO 1.2 (0.9-1.1); Prothrombin Time 14.7 SEC (11.1-13.3)
--- NOTE | 2023-10-02 10:13 | PM.CNCAR ---
History of Present Illness History of Present Illness Date of Service: 10/02/23 Chief complaint: Shortness of breath Narrative: This is a cardiology consultation regarding question of angina. Per initial information from the ER provider, presenting complaint was shortness of breath for about a week with some chest heaviness. Nonspecific changes in the EKG. At that time, there was a question of chest pain. However, when I evaluate the patient, he states that main issues rather just cough with expectoration. There is some shortness of breath with activity. On the monitor, he is having sinus tachycardia. With regard to the chest pain, he states that he just feels some pressure in the chest at times but after he coughs that goes away. Not clear if he is in early stages of pneumonia or not. He was admitted as possible unstable angina but doubt that is the case. He was recently seen in consultation few weeks back. At that time, it was preoperative evaluation for cholecystectomy. Cardiac history is that he underwent PCI to circumflex/RCA with drug-eluting stent in April. It was done for NSTEMI. Review of Systems Review of Systems: Yes all other systems are reviewed and are negative Constitutional: Constitutional: Reports as per HPI and Reports no additional constitutional complaints Eyes: Eyes: Reports as per HPI and Denies no additional eye complaints ENT: Denies system reviewed and no additional complaints, except as documented and Reports as per HPI Cardiovascular: Cardiovascular: Reports as per HPI, Reports no additional cardiovascular complaints, Denies acrocyanosis, Denies cool extremities, Denies chest pain, Denies leg edema, Denies lightheadedness, Denies palpitations and Reports dyspnea Respiratory: Respiratory: Reports as per HPI, Denies no additional respiratory complaints, Reports cough and Reports dyspnea Gastrointestinal: Gastrointestinal: Reports as per HPI and Denies no additional gastrointestinal complaints Genitourinary: Genitourinary: Reports no additional male genitourinary complaints and Reports as per HPI Musculoskeletal: Musculoskeletal: Reports no additional musculoskeletal complaints and Reports as per HPI Integumentary/Breasts: Skin/Breast: Reports system reviewed and no additional complaints, except as docu Neurologic: Reports system reviewed and no additional complaints, except as documented and Reports as per HPI Psychiatric: Psychiatric: Reports no additional psychiatric complaints and Reports as per HPI Endocrine: Endocrine: Reports no additional endocrine complaints, Reports as per HPI and Denies palpitations Hematologic/Lymphatic: Hematologic/Lymphatic: Reports no additional hematologic/lymphatic complaints and Reports as per HPI Allergic/Immunologic: Allergic/Immunologic: Reports no additional allergic/immunologic complaints and Reports as per HPI [facility] Past Medical History Medical History Acute cholecystitis Nausea Peripheral arterial disease TIA (transient ischemic attack) COPD (chronic obstructive pulmonary disease) Hearing loss Elevated cholesterol HTN (hypertension) Staghorn calculus Nephrolithiasis Enlarged prostate Diabetes mellitus, type II Renal cysts, acquired, bilateral History of kidney stones Rotator cuff impingement syndrome Family History Pertinent family history: No pertinent family history Surgical History Surgical History History of left-sided carotid endarterectomy Hx of cataract surgery Hx of lithotripsy History of surgery Social History Social History Household Members: None Household Members Other:: 0 Housing: House Are you a primary rn complex care to a significant other at home: No Do you presently have visiting nurse or other home services: No Patient Tobacco Use Status: Never used Tobacco Tobacco use type: Cigarette Cigarette Packs Per Day: 1 Cigarettes Per Day: 20.0 Years Smoked: 60 Smoked in Last 30 Days: Yes e-Cigarette/Vaping Use: Never Used Use of substances other than those prescribed or required for medical reasons: No Advance Directives: Yes Advance Directives on File: Yes Advance Directives Date on File: 09/29/22 Do you have a plan to hurt others: No Plan Nutrition Risks: No Nutritional Risk service: No Current occupational status: employed Meds Allergies Allergy/AdvReac Type Severity Reaction Status Date / Time No Known Allergies Allergy Verified 10/01/23 17:06 [No Known Allergies*] Active Medications: Current Medications Aspirin (Aspirin Enteric Coated 81 Mg Tablet.) 81 mg PO DAILY [facility] Last Admin: 10/02/23 07:25 Dose: 81 mg Atorvastatin Calcium (Atorvastatin Calcium 80 Mg Tablet) 80 mg PO BEDTIME [facility] Last Admin: 10/02/23 00:00 Dose: 80 mg Clopidogrel Bisulfate (Clopidogrel Bisulfate 75 Mg Tablet) 75 mg PO DAILY [facility] Last Admin: 10/02/23 07:26 Dose: 75 mg Famotidine (Famotidine 20 Mg Tablet) 10 mg PO DAILY [facility] Last Admin: 10/02/23 07:25 Dose: 10 mg Glucose (Glucose Gel 15 Gm Gel..Gram.) 15 gm PO Q15M PRN; Protocol PRN Reason: per Hypoglycemia Standing Ord. Glyburide (Glyburide 5 Mg Tablet) 10 mg PO DAILY@0900 [facility] Last Admin: 10/02/23 08:54 Dose: 10 mg Heparin Sodium (Porcine) (Heparin Sodium,Porcine 5,000 Unit/Ml Vial) 2,100 unit 40 unit/kg (2100 unit) IVPUSH PROTOCOL BOLUS PRN; Protocol PRN Reason: 40 unit/kg - Heparin Protocol Heparin Sodium (Porcine) (Heparin Sodium,Porcine 5,000 Unit/Ml Vial) 4,300 unit 80 unit/kg (4300 unit) IVPUSH PROTOCOL BOLUS PRN; Protocol PRN Reason: 80 unit/kg - Heparin Protocol Heparin Sodium/Sodium Chloride (Heparin Sodium,Porcine/1/2ns) 25,000 unit in 250 mls @ 0 mls/hr IVCONT .Q0M [facility]; Protocol Last Titration: 10/02/23 09:53 Dose: 12 units/kg/hr, 6.43 mls/hr Dextrose (D10) 250 mls @ 750 mls/hr IV Q15M PRN; Protocol PRN Reason: per Hypoglycemia Standing Ord. Azithromycin 500 mg/ Sodium (Chloride) 250 mls @ 125 mls/hr IV Q24H [facility] Last Infusion: 10/02/23 01:58 Dose: Infused Insulin Human Lispro (Insulin Lispro 100 Unit/Ml 3 Ml Vial) 0 unit SUBCUT QIDACHS [facility]; Protocol Last Admin: 10/02/23 07:24 Dose: 8 unit Levalbuterol HCl (Levalbuterol Hcl 1.25 Mg/3 Ml Vial.Neb) 1.25 mg INHALE Q4H [facility] Last Admin: 10/02/23 08:16 Dose: 1.25 mg Nitroglycerin (Nitroglycerin 0.4 Mg Tab.Subl) 0.4 mg SUBLINGUAL Q5MX3 PRN PRN Reason: Chest Pain Omeprazole (Omeprazole 20 Mg Capsule.Dr) 20 mg PO BID@0630,1630 [facility] Last Admin: 10/02/23 08:54 Dose: 20 mg Sodium Chloride (0.9 % Sodium Chloride Flush 3 Ml Syringe) 3 ml IVFLUSH QSHIFT [facility] Last Admin: 10/02/23 07:27 Dose: 3 ml Home Medications ?Medication ?Instructions ?Recorded ?Confirmed ?Last Taken ?Type aspirin 81 mg tablet,delayed 81 mg PO DAILY 09/24/22 10/01/23 10/01/23 History release glyburide 5 mg tablet 10 mg PO DAILY@0900 09/14/23 10/01/23 10/01/23 History metformin 1,000 mg tablet 1,000 mg PO BID@1200,1700 09/14/23 10/01/23 10/01/23 History Physical Exam Vital Signs: Vital Signs: Last Vital Signs Temp 98.1 F 10/02/23 07:10 Pulse 84 10/02/23 08:18 Resp 16 10/02/23 08:18 BP 163/47 H 10/02/23 07:10 Pulse Ox 93 10/02/23 07:10 O2 Del Method Room Air 10/02/23 07:10 BMI result Body Mass Index 19.7 Const: General: comfortable and no acute distress Orientation/consciousness: patient oriented x3 HEENT: Other: Unremarkable Head: Yes normal to inspection Neck: Neck: Yes normal visual inspection Chest: Chest palpation & inspection: normal inspection of the chest Resp: Other: Possibly few basal crackles Cardio: Palpation: normal PMI Heart sounds: S1 normal heart sound present, S2 normal heart sound present, no gallops, no murmurs and no rubs GI: Palpation (GI): Soft to palpation Back/Spine/Pelvis: Other: unremarkable Skin: General skin exam: no rashes or lesions noted Neuro: General: patient oriented x3 Extrem: General: Yes normal to inspection Psych: Mental Status: mental status grossly normal Objective Labs and Meds 10/02/23 04:14 10/02/23 04:14 Lab results: Laboratory Results - last 24 hr 10/01/23 10/01/23 10/01/23 17:29 20:21 21:37 WBC 11.9 H 14.7 H RBC 4.04 L 3.79 L Hgb 12.6 L 11.8 L Hct 38.0 L 35.6 L MCV 94.1 93.9 MCH 31.2 31.1 MCHC 33.2 33.1 RDW 14.4 14.4 Plt Count 524 H D 487 H MPV 9.5 9.6 Immature Gran % (Auto) 0.7 H Neut % (Auto) 62.3 Lymph % (Auto) 23.5 [place] % (Auto) 10.2 Eos % (Auto) 3.0 Baso % (Auto) 0.3 Lymph # (Auto) 2.8 [place] # (Auto) 1.2 Eos # (Auto) 0.4 Baso # (Auto) 0.0 Abs Immat Gran (auto) 0.08 H Absolute Neuts (auto) 7.4 Absolute Nucleated RBC 0.000 0.000 Nucleated RBC % (auto) 0.0 0.0 Smear Tech's Comments PT 13.9 H 14.0 H INR 1.1 1.2 H aPTT Heparin Protocol 31.9 L Sodium 139 Potassium 5.0 Chloride 102 Carbon Dioxide 22 Anion Gap 20 BUN 20 H Creatinine 1.25 Estim Creat Clear Calc 32.7 Estimated GFR 55 POC Glucose Random Glucose 159 H Calcium 9.3 D Total Bilirubin 0.2 AST 16 ALT 28 Alkaline Phosphatase 96 Troponin I High Sens 14.8 16.9 B-Natriuretic Peptide 70 Total Protein 6.9 Albumin 3.8 Influenza Type A (PCR) NEGATIVE Influenza Type B (PCR) NEGATIVE RSV RNA Qual (PCR) NEGATIVE SARS-CoV-2 RNA (RT-PCR) NEGATIVE 10/02/23 10/02/23 10/02/23 04:14 07:08 09:01 WBC 12.3 H RBC 3.74 L Hgb 11.7 L Hct 35.1 L MCV 93.9 MCH 31.3 MCHC 33.3 RDW 14.5 Plt Count 436 H MPV 9.7 Immature Gran % (Auto) 0.9 H Neut % (Auto) 90.3 H Lymph % (Auto) 6.0 L [place] % (Auto) 2.1 Eos % (Auto) 0.5 Baso % (Auto) 0.2 Lymph # (Auto) 0.7 L [place] # (Auto) 0.3 Eos # (Auto) 0.1 Baso # (Auto) 0.0 Abs Immat Gran (auto) 0.11 H Absolute Neuts (auto) 11.1 H Absolute Nucleated RBC 0.000 Nucleated RBC % (auto) 0.0 Smear Tech's Comments VERIFIED PT INR aPTT Heparin Protocol 65.6 D 68.0 Sodium 138 Potassium 5.5 H Chloride 105 Carbon Dioxide 21 L Anion Gap 18 BUN 24 H Creatinine 1.26 Estim Creat Clear Calc 32.4 Estimated GFR 54 POC Glucose 308 H Random Glucose 302 H Calcium 8.8 Total Bilirubin AST ALT Alkaline Phosphatase Troponin I High Sens 13.9 B-Natriuretic Peptide Total Protein Albumin Influenza Type A (PCR) Influenza Type B (PCR) RSV RNA Qual (PCR) SARS-CoV-2 RNA (RT-PCR) ECG Interpretation: EKG with sinus tachycardia at 100/Min; incomplete right bundle-branch block and left anterior fascicular block with nonspecific ST-T changes. Imaging Radiologist's impression: Impressions Chest X-Ray 10/01/23 19:04 IMPRESSION: No acute cardiopulmonary disease. There is a round opacity measuring 7 mm over the right lower lung for which a pulmonary nodule is not excluded. Further evaluation with chest CT is recommended on a nonemergent basis to evaluate this. Assessment and Plan (1) Breathlessness on exertion: Status: Acute (2) CAD (coronary artery disease): Qualifiers: Coronary Disease-Associated Artery/Lesion type: [place] artery [place] vs. transplanted heart: [place] heart Associated angina: unspecified whether angina present Qualified Code(s): I25.10 - Atherosclerotic heart disease of [place] coronary artery without angina pectoris Status: Acute Plan Several sets of high sensitivity troponins within normal limits. Cardiac BNP is also within acceptable limits. Chest x-ray is not showing any acute findings. Main symptom is rather cough shortness of breath. No clear chest pain but he does feel some chest pressure that gets better with coughing. Overall, suspect issues or other respiratory or not cardiac. May need further evaluation in that regard and consider chest CT scan. Continue current cardiac medications. He is on dual antiplatelet therapy because of PCI. Otherwise, he is on high-dose statins. Not clear why he he is on beta-blockers. May use it unless there is any clear-cut intolerance in the past. Discussed with Dr. Adams. Procedures Date of Service Date of Service: 10/02/23
[2023-10-02 11:23] LABS: Glucose, Whole Blood 331 mg/dL (60-115)
[2023-10-02] MEDS: Metoprolol Tartrate 25 MG TABLET PO ×2 (11:24→20:28)
[2023-10-02 11:27] LABS: Adenovirus PCR Not Detected (Not Detect.); Bordetella parapertussis PCR Not Detected (Not Detect.); Bordetella pertussis PCR Not Detected (Not Detect.); Chlamydia pneumoniae PCR Not Detected (Not Detect.); Coronavirus 229E PCR Not Detected (Not Detect.); Coronavirus HKU1 PCR Not Detected (Not Detect.); Coronavirus NL63 PCR Not Detected (Not Detect.); Coronavirus OC43 PCR Not Detected (Not Detect.); Human metapneumovirus PCR Not Detected (Not Detect.); Influenza A PCR Not Detected (Not Detect.); Influenza B PCR Not Detected (Not Detect.); Mycoplasma pneumoniae PCR Not Detected (Not Detect.); Parainfluenza 1 PCR Not Detected (Not Detect.); Parainfluenza 2 PCR Not Detected (Not Detect.); Parainfluenza 3 PCR Not Detected (Not Detect.); Parainfluenza 4 PCR Not Detected (Not Detect.); RSV PCR Not Detected (Not Detect.); Rhino/Enterovirus PCR Not Detected (Not Detect.)
--- NOTE | 2023-10-02 11:33 | PC.NURSE ---
Assumed care of this patient at 1100, dc'd heparin gtt per order, patient repostioned in bed, medicated per jul.
--- NOTE | 2023-10-02 12:10 | PM.EVENT ---
Event Note Date of Service: 10/02/23 Time Spent With Patient Time: Total time managing care of this patient today ____ minutes.
--- NOTE | 2023-10-02 12:13 | P.PNIM_ITS ---
Subjective Subjective Date of Service: 10/02/23 Interval History: bronchitis ,chest heaviness Review of Systems chest heavines resolved, has some sob no fever has cough Physical Exam 2 Vital Signs: Vital Signs: Last Vital Signs Temp 97.7 F 10/02/23 11:59 Pulse 72 10/02/23 11:59 Resp 16 10/02/23 11:59 BP 149/51 H 10/02/23 11:59 Pulse Ox 93 10/02/23 11:59 O2 Del Method Room Air 10/02/23 11:59 BMI result Body Mass Index 19.7 Appearance: Alert.? Oriented X3.? cvs: rrr, [id number] . res: air entry seems fair ,has b/l rhonchii abd: no rebound or guarding ,nt, bs present. ext pulses present , no cyanosis . neuro: axo3 , nonfocal. Objective Data Active Medications Aspirin (Aspirin Enteric Coated 81 Mg Tablet.) 81 mg PO DAILY [facility] Last Admin: 10/02/23 07:25 Dose: 81 mg Documented By: DORINDA Comments: aware Atorvastatin Calcium (Atorvastatin Calcium 80 Mg Tablet) 80 mg PO BEDTIME [facility] Last Admin: 10/02/23 00:00 Dose: 80 mg Documented By: ANT Clopidogrel Bisulfate (Clopidogrel Bisulfate 75 Mg Tablet) 75 mg PO DAILY [facility] Last Admin: 10/02/23 07:26 Dose: 75 mg Documented By: DORINDA Famotidine (Famotidine 20 Mg Tablet) 10 mg PO DAILY [facility] Last Admin: 10/02/23 07:25 Dose: 10 mg Documented By: DROINDA Glucose (Glucose Gel 15 Gm Gel..Gram.) 15 gm PO Q15M PRN; Protocol PRN Reason: per Hypoglycemia Standing Ord. Glyburide (Glyburide 5 Mg Tablet) 10 mg PO DAILY@0900 [facility] Last Admin: 10/02/23 08:54 Dose: 10 mg Documented By: DORINDA Dextrose (D10) 250 mls @ 750 mls/hr IV Q15M PRN; Protocol PRN Reason: per Hypoglycemia Standing Ord. Azithromycin 500 mg/ Sodium (Chloride) 250 mls @ 125 mls/hr IV Q24H [facility] Last Infusion: 10/02/23 01:58 Dose: Infused Documented By: ANT Insulin Human Lispro (Insulin Lispro 100 Unit/Ml 3 Ml Vial) 0 unit SUBCUT QIDACHS [facility]; Protocol Last Admin: 10/02/23 11:24 Dose: 8 unit Documented By: BEN Levalbuterol HCl (Levalbuterol Hcl 1.25 Mg/3 Ml Vial.Neb) 1.25 mg INHALE Q4H [facility] Last Admin: 10/02/23 11:38 Dose: 1.25 mg Documented By: [place] Metoprolol Tartrate (Metoprolol Tartrate 25 Mg Tablet) 25 mg PO BID [facility]; Protocol Last Admin: 10/02/23 11:24 Dose: 25 mg Documented By: BEN Nitroglycerin (Nitroglycerin 0.4 Mg Tab.Subl) 0.4 mg SUBLINGUAL Q5MX3 PRN PRN Reason: Chest Pain Omeprazole (Omeprazole 20 Mg Capsule.Dr) 20 mg PO BID@0630,1630 [facility] Last Admin: 10/02/23 08:54 Dose: 20 mg Documented By: DORINDA Sodium Chloride (0.9 % Sodium Chloride Flush 3 Ml Syringe) 3 ml IVFLUSH QSHIFT [facility] Last Admin: 10/02/23 07:27 Dose: 3 ml Documented By: DORINDA Labs 10/02/23 04:14 10/02/23 04:14 Labs: Laboratory Results - last 24 hr 10/01/23 10/01/23 10/01/23 17:29 20:21 21:37 MCV 94.1 93.9 MCH 31.2 31.1 MCHC 33.2 33.1 RDW 14.4 14.4 Plt Count 524 H D 487 H MPV 9.5 9.6 Immature Gran % (Auto) 0.7 H Neut % (Auto) 62.3 Lymph % (Auto) 23.5 [place] % (Auto) 10.2 Eos % (Auto) 3.0 Baso % (Auto) 0.3 Lymph # (Auto) 2.8 [place] # (Auto) 1.2 Eos # (Auto) 0.4 Baso # (Auto) 0.0 Abs Immat Gran (auto) 0.08 H Absolute Neuts (auto) 7.4 Absolute Nucleated RBC 0.000 0.000 Nucleated RBC % (auto) 0.0 0.0 Smear Tech's Comments PT 13.9 H 14.0 H INR 1.1 1.2 H aPTT Heparin Protocol 31.9 L Anion Gap 20 Estim Creat Clear Calc 32.7 Estimated GFR 55 POC Glucose Random Glucose 159 H Calcium 9.3 D Total Bilirubin 0.2 AST 16 ALT 28 Alkaline Phosphatase 96 Troponin I High Sens 14.8 16.9 B-Natriuretic Peptide 70 Total Protein 6.9 Albumin 3.8 Influenza Type A (PCR) NEGATIVE Influenza Type B (PCR) NEGATIVE RSV RNA Qual (PCR) NEGATIVE SARS-CoV-2 RNA (RT-PCR) NEGATIVE 10/02/23 10/02/23 10/02/23 04:14 07:08 09:01 MCV 93.9 MCH 31.3 MCHC 33.3 RDW 14.5 Plt Count 436 H MPV 9.7 Immature Gran % (Auto) 0.9 H Neut % (Auto) 90.3 H Lymph % (Auto) 6.0 L [place] % (Auto) 2.1 Eos % (Auto) 0.5 Baso % (Auto) 0.2 Lymph # (Auto) 0.7 L [place] # (Auto) 0.3 Eos # (Auto) 0.1 Baso # (Auto) 0.0 Abs Immat Gran (auto) 0.11 H Absolute Neuts (auto) 11.1 H Absolute Nucleated RBC 0.000 Nucleated RBC % (auto) 0.0 Smear Tech's Comments VERIFIED PT 14.7 H INR 1.2 H aPTT Heparin Protocol 65.6 D 68.0 Anion Gap 18 Estim Creat Clear Calc 32.4 Estimated GFR 54 POC Glucose 308 H Random Glucose 302 H Calcium 8.8 Total Bilirubin AST ALT Alkaline Phosphatase Troponin I High Sens 13.9 B-Natriuretic Peptide Total Protein Albumin Influenza Type A (PCR) Influenza Type B (PCR) RSV RNA Qual (PCR) SARS-CoV-2 RNA (RT-PCR) 10/02/23 11:19 MCV MCH MCHC RDW Plt Count MPV Immature Gran % (Auto) Neut % (Auto) Lymph % (Auto) [place] % (Auto) Eos % (Auto) Baso % (Auto) Lymph # (Auto) [place] # (Auto) Eos # (Auto) Baso # (Auto) Abs Immat Gran (auto) Absolute Neuts (auto) Absolute Nucleated RBC Nucleated RBC % (auto) Smear Tech's Comments PT INR aPTT Heparin Protocol Anion Gap Estim Creat Clear Calc Estimated GFR POC Glucose 331 H Random Glucose Calcium Total Bilirubin AST ALT Alkaline Phosphatase Troponin I High Sens B-Natriuretic Peptide Total Protein Albumin Influenza Type A (PCR) Influenza Type B (PCR) RSV RNA Qual (PCR) SARS-CoV-2 RNA (RT-PCR) Assessment and Plan (1) Breathlessness on exertion: Status: Acute Assessment and Plan: 83 years old man with past medical history significant for CAD (cardiac cath Apr 2023 --> severe two-vessel CAD, s/p PCI of LCx and RCA) admitted with: Shortness of breath/Dyspnea and productive cough-possible sec acute exacerbation of chronic obstructive pulmonary disease/acute bronchitis (unclear if pt has an official diagnosis of COPD). continue Pulse oximetry. Supplemental oxygen to keep O2 sats > 90%,nebs ,steriods ,cough syrup,loratidine , azithromycin 500 mg IV daily. Pulmonology consult. Chest heaviness in the setting of underlying CAD. : cardiology reviewed and seen the patient: seems atypical pain ,less likely cardiac. trops flat , stop heparin IV infusion per cardiology recommendations. Continue Plavix, aspirin and statin. Nitro SL q5 min X3. Check TTE. Cardiology consult for further recommendations. Hyperlipidemia. Continue statin. HFpEF. Doubt acute decompensation. CXR showed no pulmonary edema. BNP normal. TIA and PVD. Continue Plavix, aspirin statin. Type 2 diabetes mellitus. Continue glyburide. BG checks before meals at bedtime. Diabetic diet. Essential hypertension. Continue lisinopril. Tobacco smoking. Tobacco cessation education. DVT prophylaxis: Heparin. GI prophylaxis: PPI ongoing hospitalization need for shortness of breath and productive cough management with supplemental oxygen as needed, bronchodilator therapy, IV steroids and empiric IV antibiotic therapy. Patient will also need evaluation by subspecialties for further recommendations. Quality Stroke Does the patient have a stroke diagnosis?: No VTE Prior VTE?: No VTE Risk Level:: Medical - moderate - high VTE Device Contraindication: Treatment Not Indicated VTE Drug Contraindication: N/A - Med Ordered
[2023-10-02 12:21] LABS: SARS-CoV-2 PCR Not Detected (Not Detect.)
[2023-10-02 16:13] LABS: Glucose, Whole Blood 332 mg/dL (60-115)
[2023-10-02] MEDS: Loratadine 10 MG TABLET PO (16:22)
[2023-10-02] MEDS: amLODIPine Besylate 2.5 MG TABLET PO (17:42)
[2023-10-02 20:17] LABS: Glucose, Whole Blood 296 mg/dL (60-115)
[2023-10-02] MEDS: guaiFENesin 200 MG/10 ML 10 ML LIQUID PO (20:28)
[2023-10-02] MEDS: Atorvastatin Calcium 80 MG TABLET PO ×2 (20:28)
[2023-10-03] VITALS (10 sets, daily range): BP systolic 131–172; BP diastolic 60–76; PULSE 59–71; RESP 14–20; TEMP 36.1–36.8; O2SAT 93–95
[2023-10-03] MEDS: Azithromycin 500 MG in 0.9 % Sodium Chloride 250 ML 125 MG IV ×2 (01:14→22:18)
[2023-10-03] MEDS: 0.9 % Sodium Chloride Flush 3 ML SYRINGE IVFLUSH ×4 (01:16→22:19)
[2023-10-03] MEDS: levalbuterol HCL 1.25 MG/3 ML VIAL.NEB INHALE ×2 (04:00→07:57)
[2023-10-03 07:18] LABS: Glucose, Whole Blood 197 mg/dL (60-115)
[2023-10-03] MEDS: glyBURIDE 5 MG TABLET 10 MG PO (08:28)
[2023-10-03] MEDS: Omeprazole 20 MG CAPSULE.DR PO ×2 (08:28→16:53)
[2023-10-03] MEDS: Clopidogrel Bisulfate 75 MG TABLET PO (08:28)
[2023-10-03] MEDS: Famotidine 20 MG TABLET 10 MG PO (08:28)
[2023-10-03] MEDS: Loratadine 10 MG TABLET PO (08:28)
[2023-10-03] MEDS: Aspirin Enteric Coated 81 MG TABLET.DR PO (08:28)
[2023-10-03] MEDS: Insulin Lispro 100 UNIT/ML 3 ML VIAL SUBCUT ×4 (08:29→22:18)
[2023-10-03] MEDS: Metoprolol Tartrate 25 MG TABLET PO ×2 (08:29→22:17)
[2023-10-03 08:55] LABS: PTT Heparin Drip 30.3 SEC (53-77.9)
[2023-10-03 09:18] LABS: Anion Gap 19 (12-20); Blood Urea Nitrogen 20 mg/dL (9-16); Calcium 9.8 mg/dL (8.4-10.2); Carbon Dioxide 26 mmol/L (22-29); Chloride 101 mmol/L (96-108); Creatinine Clr Calc Pharmacy 48.4; Estimated Glomerular Filt Rate > 60; Glucose Random 212 mg/dL (60-115); Potassium 4.6 mmol/L (3.3-5.1); Sodium 141 mmol/L (135-145)
[2023-10-03 10:55] LABS: Glucose, Whole Blood 270 mg/dL (60-115)
--- NOTE | 2023-10-03 13:19 | MHC.CM.PN ---
IMM 10/03/23, CM MET W/PT WHO REPORTS HE LIVES ALONE, IS FULLY INDEP W/CARE, DENIES USE OF DME/HOME SERVICES AND REPORTS HIS GOAL IS TO LEAVE TODAY AND CAR IS IN [facility] LOT AND PT WILL SELF TRANSPORT. PT VERIFIES PCP/HCP ARE CORRECT.
--- NOTE | 2023-10-03 14:56 | P.PNIM_ITS ---
Subjective Subjective Date of Service: 10/03/23 Interval History: bronchitis Review of Systems sob somewhat improving ,has cough no fever Physical Exam 2 Vital Signs: Vital Signs: Last Vital Signs Temp 98.3 F 10/03/23 11:00 Pulse 62 10/03/23 11:00 Resp 18 10/03/23 11:00 BP 172/60 H 10/03/23 11:00 Pulse Ox 93 10/03/23 11:00 O2 Del Method Room Air 10/03/23 11:00 BMI result Body Mass Index 20.0 Appearance: Alert.? Oriented X3.? cvs: rrr, [id number] . res: air entry seems fair ,has b/l rhonchii abd: no rebound or guarding ,nt, bs present. ext pulses present , no cyanosis . neuro: axo3 , nonfocal. Objective Data Active Medications Aspirin (Aspirin Enteric Coated 81 Mg Tablet.) 81 mg PO DAILY ON LICENSE OF [facility] Last Admin: 10/03/23 08:28 Dose: 81 mg Documented By: CORRIE Atorvastatin Calcium (Atorvastatin Calcium 80 Mg Tablet) 80 mg PO BEDTIME ON LICENSE OF [facility] Last Admin: 10/02/23 20:28 Dose: 80 mg Documented By: GYPSY Clopidogrel Bisulfate (Clopidogrel Bisulfate 75 Mg Tablet) 75 mg PO DAILY ON LICENSE OF [facility] Last Admin: 10/03/23 08:28 Dose: 75 mg Documented By: CORRIE Famotidine (Famotidine 20 Mg Tablet) 10 mg PO DAILY ON LICENSE OF [facility] Last Admin: 10/03/23 08:28 Dose: 10 mg Documented By: CORRIE Glucose (Glucose Gel 15 Gm Gel..Gram.) 15 gm PO Q15M PRN; Protocol PRN Reason: per Hypoglycemia Standing Ord. Glyburide (Glyburide 5 Mg Tablet) 10 mg PO DAILY@0900 ON LICENSE OF [facility] Last Admin: 10/03/23 08:28 Dose: 10 mg Documented By: CORRIE Guaifenesin (Guaifenesin 200 Mg/10 Ml 10 Ml Liquid) 10 ml PO Q4H PRN PRN Reason: Cough Last Admin: 10/02/23 20:28 Dose: 10 ml Documented By: GYPSY Dextrose (D10) 250 mls @ 750 mls/hr IV Q15M PRN; Protocol PRN Reason: per Hypoglycemia Standing Ord. Azithromycin 500 mg/ Sodium (Chloride) 250 mls @ 125 mls/hr IV Q24H ON LICENSE OF [facility] Last Infusion: 10/03/23 04:11 Dose: Infused Documented By: MICHEL Insulin Human Lispro (Insulin Lispro 100 Unit/Ml 3 Ml Vial) 0 unit SUBCUT QIDACHS ON LICENSE OF [facility]; Protocol Last Admin: 10/03/23 11:57 Dose: 6 unit Documented By: DOBRONarda Levalbuterol HCl (Levalbuterol Hcl 1.25 Mg/3 Ml Vial.Neb) 1.25 mg INHALE Q4H ON LICENSE OF [facility] Last Admin: 10/03/23 11:46 Dose: Not Given Documented By: BROOKLYN Non-Admin Reason: Patient Refused Loratadine (Loratadine 10 Mg Tablet) 10 mg PO DAILY ON LICENSE OF [facility] Last Admin: 10/03/23 08:28 Dose: 10 mg Documented By: CORRIE Metoprolol Tartrate (Metoprolol Tartrate 25 Mg Tablet) 25 mg PO BID ON LICENSE OF [facility]; Protocol Last Admin: 10/03/23 08:29 Dose: 25 mg Documented By: CORRIE Nitroglycerin (Nitroglycerin 0.4 Mg Tab.Subl) 0.4 mg SUBLINGUAL Q5MX3 PRN PRN Reason: Chest Pain Omeprazole (Omeprazole 20 Mg Capsule.Dr) 20 mg PO BID@0630,1630 ON LICENSE OF [facility] Last Admin: 10/03/23 08:28 Dose: 20 mg Documented By: CORRIE Sodium Chloride (0.9 % Sodium Chloride Flush 3 Ml Syringe) 3 ml IVFLUSH QSHIFT ON LICENSE OF [facility] Last Admin: 10/03/23 08:33 Dose: 3 ml Documented By: CORRIE Labs 10/02/23 04:14 10/03/23 08:20 Labs: Laboratory Results - last 24 hr 10/02/23 10/02/23 10/03/23 16:08 20:09 07:14 Hold Purple Top aPTT Heparin Protocol Anion Gap Estim Creat Clear Calc Estimated GFR POC Glucose 332 H 296 H 197 H Random Glucose Calcium 10/03/23 10/03/23 08:20 10:51 Hold Purple Top SEE NOTE aPTT Heparin Protocol 30.3 L D Anion Gap 19 Estim Creat Clear Calc 48.4 Estimated GFR > 60 POC Glucose 270 H Random Glucose 212 H Calcium 9.8 D Assessment and Plan (1) Breathlessness on exertion: Status: Acute Assessment and Plan: 83 years old man with past medical history significant for CAD (cardiac cath Apr 2023 --> severe two-vessel CAD, s/p PCI of LCx and RCA) admitted with: Shortness of breath/Dyspnea and productive cough-possible sec acute exacerbation of chronic obstructive pulmonary disease/acute bronchitis (unclear if pt has an official diagnosis of COPD). continue Pulse oximetry. Supplemental oxygen to keep O2 sats > 90%,nebs ,steriods ,cough syrup,loratidine , azithromycin 500 mg IV daily. Pulmonology consult. Chest heaviness in the setting of underlying CAD. : cardiology reviewed and seen the patient: seems atypical pain ,less likely cardiac. trops flat , stop heparin IV . Continue Plavix, aspirin and statin. Nitro SL q5 min X3. Hyperlipidemia. Continue statin. HFpEF. Doubt acute decompensation. CXR showed no pulmonary edema. BNP normal. TIA and PVD. Continue Plavix, aspirin statin. Type 2 diabetes mellitus. Continue glyburide. BG checks before meals at bedtime. Diabetic diet. Essential hypertension. Continue lisinopril. Tobacco smoking. Tobacco cessation education. DVT prophylaxis: Heparin. GI prophylaxis: PPI ongoing hospitalization need for shortness of breath and productive cough management with supplemental oxygen as needed, bronchodilator therapy, IV steroids and empiric IV antibiotic therapy. Patient will also need evaluation by subspecialties for further recommendations. Quality Stroke Does the patient have a stroke diagnosis?: No VTE Prior VTE?: No VTE Risk Level:: Medical - moderate - high VTE Device Contraindication: Treatment Not Indicated VTE Drug Contraindication: N/A - Med Ordered
[2023-10-03 15:55] LABS: Glucose, Whole Blood 245 mg/dL (60-115)
[2023-10-03 20:43] LABS: Glucose, Whole Blood 223 mg/dL (60-115)
[2023-10-03] MEDS: Atorvastatin Calcium 80 MG TABLET PO (22:16)
[2023-10-04 03:22] VITALS: BP 143/66; PULSE 62; RESP 20; TEMP 36.1; O2SAT 97
[2023-10-04] MEDS: Omeprazole 20 MG CAPSULE.DR PO (05:29)
[2023-10-04 07:25] VITALS: BP 173/72; PULSE 79; RESP 20; TEMP 36.1; O2SAT 96
[2023-10-04 07:31] LABS: Glucose, Whole Blood 266 mg/dL (60-115)
[2023-10-04] MEDS: Insulin Lispro 100 UNIT/ML 3 ML VIAL SUBCUT (08:23)
[2023-10-04] MEDS: Aspirin Enteric Coated 81 MG TABLET.DR PO (08:23)
[2023-10-04] MEDS: Clopidogrel Bisulfate 75 MG TABLET PO (08:23)
[2023-10-04] MEDS: Loratadine 10 MG TABLET PO (08:23)
[2023-10-04] MEDS: glyBURIDE 5 MG TABLET 10 MG PO (08:23)
[2023-10-04] MEDS: Azithromycin 250 MG TABLET PO (08:23)
--- NOTE | 2023-10-04 08:23 | W.MHC.F2F ---
Service Date Service Date: 10/04/23 Encounter Date of encounter: 10/04/23 Encounter: Acute bronchitis, undiagnosed COPD Reasons for Services Signs and symptoms assessed: Shortness of breath or fever Reason for mcfp: medication management, medication treatment and teach disease management Reason for physical therapy: home safety and mobility, therapeutic exercises, restore joint function, gait/transfer training, assess need for DME, ADL training, energy conservation and other MD Overseeing Care: Jemal Bustillos Homebound: Leaving the home is medically contraindicated at this time without the asist of a device and/or another person due th the listed conditions above and below. Reason homebound: weakness related to hospital stay Homebound supporting statement: Patient had multiple comorbidities including acute bronchitis, generalized weak post hospitalization-need help to go to appointments, lab draws, home PT. Certification: Based on the above findings, I certify that this patient is confined to the home and needs intermittent mcfp care, physical therapy and/or speech therapy, or continues to need occupational therapy. The patient is under my care, and I have initiated the establishment of the plan of care. The patient will be followed by a physician who will periodically review the plan of care. Time Spent With Patient Time: Total time managing care of this patient today ____ minutes.
--- NOTE | 2023-10-04 08:24 | P.DS_ITS ---
DS: Providers Provider Date of Service: 10/04/23 Date of admission: 10/01/23 23:26 Date of discharge: 10/04/23 Primary care physician: Jemal Bustillos MD Consults: 10/01/23 23:30 Consult to Cardiology Routine Consulting Provider: [facility] Reason for consultation: Chest haviness Has provider been notified: Yes Attending physician on discharge: Nick Adams Discharging clinician: Nick Adams DS: Diagnosis Discharge Diagnosis (1) Breathlessness on exertion: Status: Acute DS: Summary Hospital Course Hospital Course: 83 years old man with past medical history significant for CAD (cardiac cath Apr 2023 --> severe two-vessel CAD, s/p PCI of LCx and RCA) , hyperlipidemia. HFpEF, TIA, PVD and essential hypertension presents to the emergency department complaining of one-week history of worsening shortness of breath associated with cough of clear sputum. He stated that the shortness of breath worse with exertion. He denies chest pain (just chest heaviness with exertion only). Denies associated fevers, chills or chills.. Denies headache, dizziness, palpitations, abdominal pain, nausea, vomiting or diarrhea. Did not report any acute urinary symptoms. He is ongoing tobacco smoker (smokes 8-10 cigarettes daily). Denied alcohol abuse or illicit drug use. In the ED, he was found to have stable vital signs. Blood workup showed leukocytosis of 14.7. Hemoglobin is 11.8 and platelets 487. There are no significant electrolyte imbalances. Creatinine is 1.25. LFTs are normal. Viral testing for influenza, COVID-19 and RSV is negative. ECG showed NSR and bifascicular block (similar to prior). CXR showed no acute cardiopulmonary disease; it did show a 7 mm opacity over the right lower lobe (? Pulmonary nodule). Chart review: JOE Apr 2023 - Normal LV function EF 60-65%, impaired relaxation with basilar inferolateral anterolateral hypokinesis in the circumflex territory. No gross pericardial effusion or significant valve disease. ED tx: Morphine 4 mg IV, Zofran 4 mg IV, Nitrostat 0.4 mg sublingual and DuoNeb 3 ml. Hospital course: patient came with sob-had leukocytosis ,some wheezing, chest [id number], chest CT Mild to moderate emphysema. A few tiny pulmonary micronodules are noted, largest measuring 3 mm.- patient has possible acute bronchitis and mild copd execerebation contributing : patient treated with nebs,steriods ,azithormycin -seems improved significantly : going home with po prednisone 40 mg daily x3 days ,azithormycin 250 mg x1 day. conisder outpatient follow for lung nodule -outpatient imaging as per pcp. also has chest heaviness : thought to be atypical, troponins negative -seen by cardiology: less likely cardiac related. patient is asymptomatic during whole stay . telemtry also fine. follow up with pcp ,may consider pulm referral outpatient for copd diagnosis , also consider outpatient cardiology follow up outpatient. Pt recomended -Home with PT. plan: Complete po prednisone 40 mg daily x3 days ,azithormycin 250 mg x1 day. outpatient follow for lung nodule -outpatient imaging as per pcp. may consider pulm referral outpatient for copd diagnosis , also consider outpatient cardiology follow up outpatient. Above management discussed with the patient in detail length she understand and in agreement with the above plan, time spent 40 minutes and 50% time spent on counseling. Time Attestation Total time managing care of this patient today: 40 mintues. Discharge Coordination Time (in mins): 40 min Quality: Safe Use of Opioids Does Pt have an Active Cancer Diagnosis on the Problem List?: No Quality: Stroke Does the patient have a stroke diagnosis?: No Physical Exam Vital Signs: Vital Signs: Last Vital Signs Temp 97.0 F 10/04/23 07:25 Pulse 79 10/04/23 07:25 Resp 20 10/04/23 07:25 BP 173/72 H 10/04/23 07:25 Pulse Ox 96 10/04/23 07:25 O2 Del Method Room Air 10/04/23 07:25 BMI result Body Mass Index 20.0 Appearance: Alert.? Oriented X3.? cvs: rrr, [id number] , no murmur res: clear to auscultation ,no rhonchii or wheezing abd: no rebound or guarding ,nt, bs present. ext pulses present , no cyanosis . neuro: axo3 , nonfocal. DS: Data Data Completed and Pending Labs on day of discharge: Laboratory Results - last 24 hr 10/03/23 10/03/23 10/03/23 08:20 10:51 15:52 Hold Purple Top SEE NOTE aPTT Heparin Protocol 30.3 L D Sodium 141 Potassium 4.6 Chloride 101 Carbon Dioxide 26 Anion Gap 19 BUN 20 H Creatinine 0.86 Estim Creat Clear Calc 48.4 Estimated GFR > 60 POC Glucose 270 H 245 H Random Glucose 212 H Calcium 9.8 D 10/03/23 10/04/23 20:39 07:27 Hold Purple Top aPTT Heparin Protocol Sodium Potassium Chloride Carbon Dioxide Anion Gap BUN Creatinine Estim Creat Clear Calc Estimated GFR POC Glucose 223 H 266 H Random Glucose Calcium Imaging Chest x-ray: Radiologist's impression: ITS Impressions Chest X-Ray 10/01/23 19:04 IMPRESSION: No acute cardiopulmonary disease. There is a round opacity measuring 7 mm over the right lower lung for which a pulmonary nodule is not excluded. Further evaluation with chest CT is recommended on a nonemergent basis to evaluate this. Chest CT 10/02/23 12:30 IMPRESSION: 1. Mild to moderate emphysema. 2. A few tiny pulmonary micronodules are noted, largest measuring 3 mm. 3. Hepatic steatosis. Fleischner guidelines were followed. Discharge Plan Discharge Anticipated Discharge Date/Time: 10/04/23 08:09 Patient Disposition: Home Health Service Discharge Diagnosis: possible acute bronchitis , copd excerebation component( ct chest shows emphysema- mild to moderate). Referrals: [facility] [Outside] - 1 Week Jemal Bustillos MD [Primary Care Provider] - 1 Week Discharge Medications: New loratadine 10 mg Tablet 10 mg PO DAILY Qty: 10 0RF prednisone 20 mg tablet 40 mg PO DAILY Qty: 6 0RF azithromycin [Zithromax] 250 mg tablet 250 mg PO DAILY 1 Days Qty: 1 0RF Continued aspirin 81 mg Tablet,Delayed Release (Dr/Ec) 81 mg PO DAILY glyburide 5 mg tablet 10 mg PO DAILY@0900 metformin 1,000 mg tablet 1,000 mg PO BID@1200,1700 clopidogrel [Plavix] 75 mg tablet 75 mg PO DAILY Qty: 30 0RF famotidine 20 mg tablet 20 mg PO DAILY Qty: 30 0RF lisinopril 20 mg tablet 20 mg PO DAILY Qty: 30 5RF atorvastatin 80 mg tablet 80 mg PO BEDTIME Qty: 30 5RF Rx Instructions: Cholesterol-lowering medication Discharge Orders: Discharge Order (Routine); Ordered 10/04/23 Ordered By: Nick Adams Diet: Advance to usual diet Activity on Discharge: As tolerated Stand Alone Forms: Patient Portal Discharge page Print Language: Estonian Care Plan Goals: patient came with sob-had leukocytosis ,some wheezing, chest [id number], chest CT Mild to moderate emphysema. A few tiny pulmonary micronodules are noted, largest measuring 3 mm.- patient has possible acute bronchitis and mild copd execerebation contributing : patient treated with nebs,steriods ,azithormycin -seems improved significantly : going home with po prednisone 40 mg daily x3 days ,azithormycin 250 mg x1 day. conisder outpatient follow for lung nodule -outpatient imaging as per pcp. also has chest heaviness : thought to be atypical, troponins negative -seen by cardiology: less likely cardiac related. patient is asymptomatic during whole stay . telemtry also fine. follow up with pcp ,may consider pulm referral outpatient for copd diagnosis , also consider outpatient cardiology follow up outpatient. Pt recomended -Home with PT. Health Concerns: as above. Plan of Treatment: as above. Assessment: as above.
[2023-10-04 08:25] VITALS: BP 173/72; PULSE 79
[2023-10-04] MEDS: Famotidine 20 MG TABLET 10 MG PO (08:25)
[2023-10-04] MEDS: Metoprolol Tartrate 25 MG TABLET PO (08:25)
[2023-10-04] MEDS: 0.9 % Sodium Chloride Flush 3 ML SYRINGE IVFLUSH (08:31)
[2023-10-04 09:37] VITALS: BP 148/64
[2023-10-04] MEDS: lisinopriL 20 MG TABLET PO (09:37)
--- NOTE | 2023-10-04 09:46 | MHC.CM.PN ---
Patient has been medically cleared for dc to home today, with services. [facility] is aware of today's dc. IMM addressed yesterday.
== END 2023-10-04 11:20 | disposition home health service (06) | DRG 202 ==
LOC: HO.ED 22:32 → HO.EDOVER 22:34 → HO.IMC 10-02 12:00
PROVIDERS: Physician Assistant Medical; Registered Nurse Emergency; Admitting Provider Internal Medicine; Emergency Provider Emergency Medicine Emergency Medical Services; PCP Internal Medicine Medical Oncology; Visit Provider Internal Medicine
DX: J20.9 Acute bronchitis, unspecified (principal); I50.32 Chronic diastolic (congestive) heart failure; J43.9 Emphysema, unspecified; I11.0 Hypertensive heart disease with heart failure; I25.10 Atherosclerotic heart disease of native coronary artery without angina pectoris; E78.5 Hyperlipidemia, unspecified; E11.51 Type 2 diabetes mellitus with diabetic peripheral angiopathy without gangrene; F17.210 Nicotine dependence, cigarettes, uncomplicated; Z71.6 Tobacco abuse counseling; Z20.822 Contact with and (suspected) exposure to COVID-19; Z86.73 Personal history of transient ischemic attack (TIA), and cerebral infarction without residual deficits; Z79.02 Long term (current) use of antithrombotics/antiplatelets; Z79.82 Long term (current) use of aspirin; Z79.84 Long term (current) use of oral hypoglycemic drugs; Z79.899 Other long term (current) drug therapy
CPT/HCPCS: 0241U; 36415; 71046; 71250; 80048; 80053; 82947; 83880; 84484; 85025; 85027; 85610; 85730; 87633; 93005; 94640; 99285; J0456; J1644; J2919

== ENCOUNTER → 2023-10-01 23:26 | Outpatient (BNV) | payer MEDICARE, MEDICAID, SELFPAY | PROVIDERS: Admitting Provider Internal Medicine; Emergency Provider Emergency Medicine Emergency Medical Services; PCP Internal Medicine Medical Oncology; Visit Provider Internal Medicine | DX: I25.10 Atherosclerotic heart disease of native coronary artery without angina pectoris (principal); R06.09 Other forms of dyspnea | CPT/HCPCS: 93010; 99222 ==

== ENCOUNTER → 2023-10-01 23:26 | Outpatient (BNV) | payer MEDICARE, MEDICAID, SELFPAY | PROVIDERS: Admitting Provider Internal Medicine; Emergency Provider Emergency Medicine Emergency Medical Services; PCP Internal Medicine Medical Oncology; Visit Provider Internal Medicine | DX: R06.81 Apnea, not elsewhere classified (principal) | CPT/HCPCS: 99223; 99231; 99232; 99239; G0180 ==

== ENCOUNTER 2023-10-07 09:29 | Outpatient (AMB) | payer MEDICARE, MEDICAID, SELFPAY ==
--- NOTE | 2023-10-07 09:29 | A.OFFVIS_ITS ---
Vital Signs 10/07/23 09:30 Height 5 ft 5 in Weight 121 lb 4.068 oz BMI 20.2 BP 180/62 H Blood Pressure Location Lt brachial Position Sitting Intake Visit Reasons: 3 Month Follow Up Cost And Risk Analysis Manager Required: No Allergies No Known Allergies [No Known Allergies*] Allergy (Verified 10/07/23 09:32) Medication List - Last Reconciled 10/07/23 by Yeimi Ruelas NP-C albuterol sulfate 90 mcg/actuation inhalation aspirin 81 mg PO DAILY atorvastatin 80 mg PO BEDTIME azithromycin (Zithromax) 250 mg PO DAILY 1 day clopidogrel (Plavix) 75 mg PO DAILY famotidine 20 mg PO DAILY glyburide 10 mg PO DAILY@0900 lisinopril 20 mg PO DAILY loratadine 10 mg PO DAILY metformin 1,000 mg PO BID@1200,1700 prednisone 40 mg (2 x 20 mg) PO DAILY HPI HPI 3 Month Follow Up: Details: Antolin is an 83-year-old male past medical history of hypertension, hyperlipidemia, diabetes, peripheral vascular disease, COPD, smoking who was admitted to [facility], April 2023, with chest discomfort and ruled in for ACS. He was transported to [facility] and underwent cardiac catheterization showing severe 2 vessel CAD and had PCI. Post PCI was started on aspirin, Brilinta and metoprolol. He was seen in follow-up on 06/10/2023 and condition was stable at that time. Since then he has had 2 hospital admissions, 1 for possible cholecystitis and 1 for shortness of breath without cardiac findings. Today he reports he has been doing well since his hospital discharge last week. Tells me his breathing is back to normal. He states he was having shortness of breath and chest congestion at the time of his admission but this has since resolved. He denies chest discomfort at rest or with activity. No heart palpitations, lightheadedness, presyncope, syncope, falls. He did have some shortness of breath climbing the stairs up to our office today which is not unusual. Overall he is mostly sedentary but tolerates normal ADLs. He is taking his medications as directed. [facility] Medical History Acute cholecystitis Nausea Peripheral arterial disease TIA (transient ischemic attack) COPD (chronic obstructive pulmonary disease) Hearing loss Elevated cholesterol HTN (hypertension) Staghorn calculus Nephrolithiasis Enlarged prostate Diabetes mellitus, type II Renal cysts, acquired, bilateral History of kidney stones Rotator cuff impingement syndrome Surgical History History of left-sided carotid endarterectomy Hx of cataract surgery Hx of lithotripsy History of surgery Social History Household Members: None Household Members Other:: 0 Housing: House Are you a primary career agent to a significant other at home: No Do you presently have visiting nurse or other home services: No Patient Tobacco Use Status: Never used Tobacco Tobacco use type: Cigarette Cigarette Packs Per Day: 1 Cigarettes Per Day: 20.0 Years Smoked: 60 e-Cigarette/Vaping Use: Never Used Advance Directives Date on File: 09/29/22 service: Yes Current occupational status: employed Review of Systems Const All systems reviewed & are unremarkable except as noted in HPI and below ENT Denies dizziness Card Denies chest pain, Denies chest pain at rest, Denies chest pain with activity, Denies rapid heart rate, Denies pedal edema, Denies edema, Denies leg edema, Denies lightheadedness, Denies palpitations, Denies dyspnea, Denies dyspnea on exertion and Denies orthopnea Resp Denies cough, Denies dyspnea and Denies dyspnea on exertion GI Denies hematochezia and Denies change in stool character Musc Denies abnormal gait, Denies limited range of motion, Denies muscle cramps, Denies muscle weakness, Denies numbness, Denies radiating pain into limb, Denies stiffness and Denies tingling Neuro Denies abnormal gait, Denies dizziness, Denies numbness and Denies tingling Endo Denies palpitations Physical Exam Vital Signs: Last Vital Signs BP 180/62 H 10/07/23 09:30 BMI result Body Mass Index 20.2 Const General: cooperative, healthy appearing, comfortable and no acute distress Orientation/consciousness: patient oriented x3 Neck Neck: Yes normal visual inspection and Yes no JVD Resp Effort & Inspection: normal respiratory effort Auscultation: clear to auscultation bilaterally, no crackles, no rales, no rhonchi and no wheezes Cardio Jugular venous distension: no JVD Rate: regular rate Rhythm: regular rhythm Heart sounds: S1 normal heart sound present, S2 normal heart sound present, no murmurs and no rubs Neuro General: patient oriented x3 Extrem General: Yes normal to inspection, No no pedal edema and No calf tenderness Psych Appearance: grossly normal Mental Status: mental status grossly normal Speech and movement: Normal speech and movement present Assessment & Plan Assessment & Plan (1) Non-ST elevation [place] (NSTEMI): Code(s): I21.4 - Non-ST elevation (NSTEMI) myocardial infarction Category: Medical Plan: Patient presented to [facility] on 05/22/2023 with chest discomfort. He ruled in for ACS and was started on appropriate medications. Echocardiogram showed EF 60-65%, basal inferior lateral and anterior lateral hypokinesis, circumflex territory. He was transferred to [facility] and underwent cardiac catheterization on 05/25/2023 showing severe two-vessel CAD. He had 2 stents placed to the proximal left circumflex and had balloon angioplasty to the proximal RCA. Since that time he has had no recurrent chest discomfort. Initially he was on metoprolol but stopped it due to possible GI side effects. He is taking aspirin, indefinitely. He is on Plavix 75 mg daily, which will be uninterrupted for at least 1 year post stents. He is on high-dose atorvastatin with ideal LDL goal less than 70. He is due for a fasting lipid profile. Will enter order. Blood pressure is not optimally controlled. Initial blood pressure 180/62, recheck done by me later in visit 142/56. Will increase his lisinopril up from 20 mg daily up to 30 mg daily. Labs done on 10/03/2023 had shown potassium 4.6, creatinine 0.86. Recent [facility] admission for shortness of breath. His troponin levels were normal. Signs and symptoms of angina reviewed. He still declines cardiac rehab. Cardiology follow-up in 4 months, sooner if needed (2) CAD (coronary artery disease): Code(s): I25.10 - Atherosclerotic heart disease of [place] coronary artery without angina pectoris Category: Medical Qualifiers: Associated angina: unspecified whether angina present Coronary Disease- Associated Artery/Lesion type: [place] artery [place] vs. transplanted heart: [place] heart Qualified Code(s): I25.10 - Atherosclerotic heart disease of [place] coronary artery without angina pectoris Plan: As above (3) S/P cardiac cath: Comment: 05/25/2023, lad proximal 60% stenosis, mid 50% stenosis, D1 70% stenosis, left circumflex proximal 90% stenosis, to ALVAREZ placed with residual 0% stenosis, OM1 50% stenosis RCA proximal 90% stenosis, balloon angioplasty done with residual 0% stenosi Code(s): Z98.890 - Other specified postprocedural states Category: Surgical Plan: As above (4) Stented coronary artery: Code(s): Z95.5 - Presence of coronary angioplasty implant and graft Category: Surgical Plan: 2 ALVAREZ to the left circumflex (5) Hyperlipidemia: Code(s): E78.5 - Hyperlipidemia, unspecified Category: Medical Qualifiers: Hyperlipidemia type: unspecified Qualified Code(s): E78.5 - Hyperlipidemia, unspecified Plan: [place] LDL goal less than 70. Patient was on atorvastatin 80 mg daily. Fasting lipids ordered. (6) HTN (hypertension): Code(s): I10 - Essential (primary) hypertension Category: Medical Qualifiers: Hypertension type: primary hypertension Qualified Code(s): I10 - Essential (primary) hypertension Plan: As above (7) Hospital discharge follow-up: Code(s): Z09 - Encounter for follow-up examination after completed treatment for conditions other than malignant neoplasm Category: Medical Plan: To admission since last visit, noncardiac. Plan Time spent on chart review, documentation, interview and assessment Medications: New lisinopril dose increased 30 mg PO DAILY 30 tabs 5RF Discontinued lisinopril Discontinued Reason: Doctor's Order 20 mg PO DAILY 30 tabs 5RF Coding Level of Care Code Est Pt Level 4 (07205) Diagnoses Non-ST elevation [place] (NSTEMI) I21.4 Coronary artery disease involving [place] coronary artery of [place] heart, unspecified whether angina present I25.10 Associated angina: unspecified whether angina present Coronary Disease-Associated Artery/Lesion type: [place] artery [place] vs. transplanted heart: [place] heart S/P cardiac cath Z98.890 Stented coronary artery Z95.5 Hyperlipidemia, unspecified hyperlipidemia type E78.5 Hyperlipidemia type: unspecified Primary hypertension I10 Hypertension type: primary hypertension Hospital discharge follow-up Z09 Time Spent (min) 30
[2023-10-07 09:30] VITALS: BP 180/62; BMI 20.2
== END 2023-10-07 10:13 | disposition home or self-care (01) ==
PROVIDERS: PCP Internal Medicine Medical Oncology; Visit Provider Nurse Practitioner Family
DX: I21.4 Non-ST elevation (NSTEMI) myocardial infarction (principal); I25.10 Atherosclerotic heart disease of native coronary artery without angina pectoris; Z98.890 Other specified postprocedural states; Z95.5 Presence of coronary angioplasty implant and graft; E78.5 Hyperlipidemia, unspecified; I10 Essential (primary) hypertension; Z09 Encounter for follow-up examination after completed treatment for conditions other than malignant neoplasm
CPT/HCPCS: 99214

== ENCOUNTER → 2023-10-07 09:29 | Outpatient (BNVA) | payer MEDICARE, MEDICAID, SELFPAY | PROVIDERS: PCP Internal Medicine Medical Oncology; Visit Provider Nurse Practitioner Family | DX: Z09 Encounter for follow-up examination after completed treatment for conditions other than malignant neoplasm (principal); I25.2 Old myocardial infarction; I25.10 Atherosclerotic heart disease of native coronary artery without angina pectoris; I10 Essential (primary) hypertension; E78.5 Hyperlipidemia, unspecified; Z98.890 Other specified postprocedural states; Z95.5 Presence of coronary angioplasty implant and graft | CPT/HCPCS: 99212 ==

== ENCOUNTER 2023-10-13 09:43 | Outpatient (REF) | payer MEDICARE, MEDICAID, SELFPAY ==
[2023-10-13 11:13] LABS: Appearance Urine Clear; Color Urine Yellow; Glucose Urine UA 100 mg/dL (Negative); Leukocyte Esterase Urine Small (1+) (Negative); Nitrite Urine Negative (Negative); Specific Gravity - Urine 1.015 (1.005-1.025); UMIC TRIGGER UA YES; Urine Blood Negative (Negative); Urine Ketones Negative (Negative); Urine Protein 30 (1+) mg/dL (Neg-Trace)
[2023-10-13 11:15] LABS: Bacteria Urine None Seen (None Seen); Hyaline Casts Urine 0-2 /LPF (0-2); RBC Urine 0-2 /HPF (0-2); Squamous Epithelial Cell Urine 0-2 /HPF (0-2); WBC Urine 21-50 /HPF (0-5)
== END 2023-10-13 09:44 | disposition home or self-care (01) ==
LOC: HO.LNP 09:43
PROVIDERS: Visit Provider Internal Medicine Medical Oncology
DX: N40.0 Benign prostatic hyperplasia without lower urinary tract symptoms (principal)
CPT/HCPCS: 81001

== ENCOUNTER 2023-10-21 11:13 | Emergency (ER) | payer MEDICARE, MEDICAID, SELFPAY ==
--- NOTE | ~2023-10-21 | CT_ITS ---
EXAMINATION: CT ABDOMEN AND PELVIS WITH CONTRAST CLINICAL INFORMATION: Abdominal pain, distention and vomiting COMPARISON: Ultrasound abdomen earlier today, CT abdomen pelvis 09/08/2023, CT chest 10/02/2023 TECHNIQUE: Multidetector volumetric images were obtained from the superior aspect of the liver through the pubic symphysis following administration 85 mL of Omnipaque 350 intravenous contrast. Sagittal and coronal reformatted images were obtained on the technologist's workstation. Oral contrast: No This CT examination was performed using dose optimization techniques as appropriate, variously including the following: *Automated exposure control *Adjustment of mA and/or kV according to patient size (this includes techniques or standardized protocols for targeted exams where dose is matched to indication/reason for exam; i.e. extremities or head) *Use of iterative reconstruction technique DLP: 307 mGy-cm FINDINGS: LUNG BASES: Mild emphysematous changes are seen. No worrisome lung mass, infiltrate or effusion is seen. LIVER, GALLBLADDER, AND BILIARY TREE: The liver is prominent in size at 17 mm with a minimally nodular border. No focal hepatic lesion or biliary ductal dilatation is present. At the fundus of the gallbladder, there is a soft tissue density seen which has been seen on prior CT scans as well as the most recent abdominal CT. This could represent tumefactive sludge or possibly polypoid mass. Otherwise, the gallbladder is unremarkable with no evidence of radiopaque or obvious pericholecystic inflammatory changes. PANCREAS: Unremarkable. SPLEEN: Unremarkable. ADRENAL GLANDS: Unremarkable. KIDNEYS AND URETERS: The kidneys are normal in size, shape, and attenuation. Multiple bilateral benign Bosniak class I renal cysts are noted, the largest measuring 4.4 cm on the left which require no additional imaging or follow-up. No solid renal masses are seen. Is bilateral nonobstructing nephrolithiasis present which has been seen in the past. Largest stones measure 4 mm in the mid left kidney and 7 mm at the left lower pole. No hydronephrosis, hydroureter, or ureteral calculi seen. There is bilateral nonspecific perinephric stranding. BLADDER: Unremarkable. GASTROINTESTINAL TRACT: The small and large bowel are unremarkable. The appendix is not seen but there is no evidence of appendicitis evidence of appendicitis. ABDOMINAL WALL: No significant hernia is appreciated. LYMPH NODES: No retroperitoneal lymphadenopathy. VASCULAR: Severe calcific and noncalcific atherosclerotic changes are present in the aorta and iliofemoral vessels. A left external iliac artery stent is present. Significant peripheral vascular disease is present. There is no evidence of an abdominal aortic aneurysm. PELVIC VISCERA: There is moderate BPH. Seminal vesicles appear normal. OSSEOUS STRUCTURES: Mild degenerative changes are present in the spine most marked at L4-L5. No bony destructive lesions. CT/CT abdomen pelvis w IV con IMPRESSION: 1. A cause for the patient's abdominal pain, distention and vomiting has not been found. 2. Mild emphysema. 3. Prominent liver with minimally nodular border. 4. Soft tissue density at the fundus of the gallbladder which could represent tumefactive sludge or possibly polypoid mass unchanged from prior studies. 5. Bilateral nonobstructing nephrolithiasis. 6. Severe atherosclerotic changes in the aorta and iliofemoral vessels with left external iliac artery stent. 7. Moderate BPH. 8. Degenerative changes in the spine. Fleischner guidelines were followed.
--- NOTE | ~2023-10-21 | US_ITS ---
EXAMINATION: US ABDOMEN LIMITED CLINICAL INFORMATION: Cholelithiasis. Query cholecystitis. COMPARISON: Ultrasound dated 09/14/2023. Ultrasound abdomen dated 09/03/2023. TECHNIQUE: Real-time imaging of the right upper quadrant abdominal viscera. FINDINGS: PANCREAS: The visualized pancreas is normal in appearance. LIVER: The liver is normal in size. The liver contour is normal. Parenchymal echogenicity is increased. No focal hepatic lesion. There is no intrahepatic biliary duct dilatation seen. GALLBLADDER: The gallbladder is contracted. Evaluation is markedly limited. There is no pericholecystic fluid. Again seen is an echogenic, avascular lesion measuring 1.4 x 0.9 x 0.8 cm within the fundus of the gallbladder. COMMON BILE DUCT: Normal in caliber measuring 0.3 cm in diameter. FREE FLUID: None. US/US abdomen limited IMPRESSION: The gallbladder is contracted, limiting evaluation. There is no pericholecystic fluid. The sonographic Carter sign is reported as negative. Again seen is an echogenic, avascular lesion measuring up to 1.4 cm within the fundus of the gallbladder. The etiology of this remains uncertain. It could represent tumefactive sludge. The liver is steatotic.
--- NOTE | 2023-10-21 11:45 | ED_ITS ---
HPI - Abdominal Pain General Chief Complaint: General Medical Stated Complaint: Vomiting, abd pain Time Seen by Provider: 10/21/23 15:56 History of Present Illness HPI narrative: The patient is an 83-year-old male who lives on his own [facility]. He has not been feeling well for the last couple of weeks. He went to see his primary care doctor 1 week ago on October 13. He was prescribed sulfamethoxazole trimethoprim, 1 tablet b.i.d. for 10 days. The patient is not sure what his diagnosis was but he was having both urinary and abdominal symptoms at the time. The patient says that since then despite taking the antibiotic he has had occasional episodes of abdominal discomfort and nausea with associated with occasional vomiting. His last emesis was this morning. He has also had some increased urination. He says he does not really have any pain at the moment but feels that he has abdominal discomfort. Related Data Home Medications ?Medication ?Instructions ?Recorded ?Confirmed aspirin 81 mg tablet,delayed 81 mg PO DAILY 09/24/22 10/07/23 release glyburide 5 mg tablet 10 mg PO DAILY@0900 09/14/23 10/07/23 metformin 1,000 mg tablet 1,000 mg PO BID@1200,1700 09/14/23 10/07/23 albuterol sulfate 90 mcg/actuation inhalation 10/07/23 10/07/23 aerosol inhaler Previous Rx's ?Medication ?Instructions ?Recorded atorvastatin 80 mg tablet 80 mg PO BEDTIME #30 tabs 06/10/23 clopidogrel 75 mg tablet (Plavix) 75 mg PO DAILY #30 tabs 09/16/23 famotidine 20 mg tablet 20 mg PO DAILY #30 tabs 09/16/23 azithromycin 250 mg tablet 250 mg PO DAILY 1 day #1 tab 10/04/23 (Zithromax) loratadine 10 mg tablet 10 mg PO DAILY #10 tabs 10/04/23 prednisone 20 mg tablet 40 mg (2 x 20 mg) PO DAILY #6 tabs 10/04/23 lisinopril 30 mg tablet 30 mg PO DAILY #30 tabs 10/07/23 Allergies Allergy/AdvReac Type Severity Reaction Status Date / Time No Known Allergies Allergy Verified 10/21/23 11:48 [No Known Allergies*] Review of Systems Review of Systems Yes all other systems are reviewed and are negative [facility] Past Medical History Medical History Acute cholecystitis Nausea Peripheral arterial disease TIA (transient ischemic attack) COPD (chronic obstructive pulmonary disease) Hearing loss Elevated cholesterol HTN (hypertension) Staghorn calculus Nephrolithiasis Enlarged prostate Diabetes mellitus, type II Renal cysts, acquired, bilateral History of kidney stones Rotator cuff impingement syndrome Surgical History History of left-sided carotid endarterectomy Hx of cataract surgery Hx of lithotripsy History of surgery Social History Social History Household Members: None Household Members Other:: 0 Housing: House Are you a primary care attendant to a significant other at home: No Do you presently have visiting nurse or other home services: No Patient Tobacco Use Status: Never used Tobacco Tobacco use type: Cigarette Cigarette Packs Per Day: 1 Cigarettes Per Day: 20.0 Years Smoked: 60 Smoked in Last 30 Days: Yes e-Cigarette/Vaping Use: Never Used Advance Directives: Yes Advance Directives on File: Yes Advance Directives Date on File: 09/29/22 Do you have a plan to hurt others: No Plan service: Yes Current occupational status: employed Physical Exam ED Vital Signs: Vital Signs - 24 hr 10/21/23 11:46 10/21/23 15:41 10/21/23 18:03 Temperature 98.3 F 97.8 F 97.9 F Pulse Rate 87 62 70 Respiratory Rate 18 16 16 Blood Pressure 142/74 H 155/53 H 175/57 H Pulse Oximetry 94 95 97 Oxygen Delivery Method Room Air Room Air Room Air 10/21/23 19:11 Temperature 99.0 F Pulse Rate 74 Respiratory Rate 18 Blood Pressure 157/62 H Pulse Oximetry 94 Oxygen Delivery Method Room Air BMI result Body Mass Index 19.7 Const Other: The patient is awake and alert. He does not appear in obvious distress. HENMT Other: Face is symmetrical. Mucous membranes moist. Face is unremarkable. Eyes Other: Pupils are round equal, conjunctivae are clear Neck Neck: Yes no JVD Resp Effort & Inspection: normal respiratory effort Auscultation: clear to auscultation bilaterally Cardio Rate: regular rate Rhythm: regular rhythm Heart sounds: S1 normal heart sound present and S2 normal heart sound present GI Other: The abdomen seems protuberant and somewhat distended. No focal tenderness. Skin Other: Skin is pale and dry Neuro Other: The patient is awake, alert, pleasant, cooperative. Speech is clear, face is symmetrical, he moves extremities symmetrically, no focal deficits Extrem Other: No calf swelling or tenderness, no asymmetry, no edema Course Course Course Narrative: This is a Rapid Medical Examination (RME) performed by Sunni Alfaro PA-C in triage. Full HPI, ROS, assessment and treatment plan per primary provider in the Main ED. 83 yo male hx of HTN, HDL, CAD w/ stents, NSTEMI, and tobacco use here for eval of urinary frequency, nausea, vomiting, decreased PO intake and right upper abdominal discomfort. nausea worse after eating. denies fever/chills, diarrhea, constipation. no recent travel. here for acute michelle 1/5 mos ago. was not a surgical candidate at the time. abd ND/NT. no rebound or guarding. well appearing. Plan: labs, abd US, UA Medical Decision Making Medical Decision Making [facility] Narrative: The patient is an 83-year-old man who was prescribed 10 days of trimethoprim/sulfamethoxazole b.i.d. on October 13, 7 days ago. I believe this was intended to treat a UTI. A review of the hospital records show that a urinalysis submitted on 10/13/2023 showed small leukocyte esterase and 21-50 white cells. As far as I can tell there is no urine culture associated with this urinalysis however. The patient drove himself to the emergency room today because he has had nausea and vomiting and a very vague sense of abdominal discomfort over the last few days. Has a normal white count, normal differential, undetectable CRP. His urinalysis today shows trace leukocyte esterase, negative nitrites, 0-5 white cells, no bacteria seen. The patient was given a L of IV normal saline. The patient's potassium today was 5.6. This was associated with a creatinine of 1.2 and a BUN of 20. The patient's baseline creatinine seems to be closer to 1.0. However in the last 2 months he has had his creatinine checked quite frequently and his creatinines have ranged from a low of 0.86 to a high of 1.26. The patient's metabolic panel was repeated after he received a L of fluid. His creatinine came down to 1.0. I was somewhat surprised to see that his potassium went from 5.6 to 5.7. The patient's abdominal and pelvic CT today is negative for any acute process. Overall I suspect that the patient has vague abdominal discomfort and nausea might be a side effect of the trimethoprim/sulfamethoxazole he has been taking. Additionally has mild hyperkalemia might also be a consequence of this antibiotic. Given that the patient's renal function is good I do not think the patient requires significantly more aggressive management or following up his potassium. He will be given a dose of Lokelma. I think he is safe for discharge. He is advised that he should not take any additional antibiotic (he had been prescribed a 10 day course). The patient is very eager to go home. He says that he feels just fine at this point. He was given a dose of Lokelma. He will contact his PCP in the morning to arrange follow up. Lab Data 10/21/23 12:00 10/21/23 19:46 Labs: Lab Results 10/21/23 10/21/23 10/21/23 Range/Units 12:00 18:35 19:46 WBC 8.3 (4.8-10.8) X10*3/uL RBC 3.52 L (4.60-5.80) X10*6/uL Hgb 10.9 L (14.0-18.0) g/dl Hct 33.4 L (42.0-52.0) % MCV 94.9 (80.0-98.0) fL MCH 31.0 (27.0-33.0) pg MCHC 32.6 (31.0-36.0) g/dl RDW 15.4 (11.0-16.0) % Plt Count 344 (160-400) X10*3/uL MPV 9.4 (9.4-12.4) fL Immature Gran % (Auto) 0.4 (0.0-0.4) % Neut % (Auto) 64.3 (45-73) % Lymph % (Auto) 25.2 (20-40) % [place] % (Auto) 7.5 (2-11) % Eos % (Auto) 2.5 (0-4) % Baso % (Auto) 0.1 (0-2) % Lymph # (Auto) 2.1 (1.2-4.9) X10*3/uL [place] # (Auto) 0.6 (0.1-1.2) X10*3/uL Eos # (Auto) 0.2 (0.0-0.4) X10*3/uL Baso # (Auto) 0.0 (0.0-0.2) X10*3/uL Abs Immat Gran (auto) 0.03 (0.00-0.03) X10*3/uL Absolute Neuts (auto) 5.4 (2.0-8.3) x10*3/uL Absolute Nucleated RBC 0.000 (0.0-0.012) X10*3/uL Nucleated RBC % (auto) 0.0 (0.0-0.2) /100WBC Sodium 137 137 (135-145) mmol/L Potassium 5.6 H D 5.7 H (3.3-5.1) mmol/L Chloride 104 106 (96-108) mmol/L Carbon Dioxide 24 23 (22-29) mmol/L Anion Gap 15 14 (12-20) BUN 20 H 19 H (9-16) mg/dL Creatinine 1.20 1.00 (0.5-1.4) mg/dL Estim Creat Clear Calc 34.1 41.0 Estimated GFR 58 > 60 Random Glucose 125 H 90 (60-115) mg/dL Calcium 9.2 D 8.6 D (8.4-10.2) mg/dL Magnesium 1.5 L (1.6-2.6) mg/dL Total Bilirubin 0.2 (0.0-1.0) mg/dL AST 21 (5-37) U/L ALT 22 (0-40) U/L Alkaline Phosphatase 81 (39-117) U/L C-Reactive Protein < 0.10 (< or = 0.50) mg/dL Total Protein 6.6 (6.5-8.0) g/dL Albumin 3.8 (3.5-5.0) g/dL Lipase 12 (8-78) U/L Urine Color Yellow Urine Appearance Cloudy Urine pH 5.5 (5.0-9.0) Ur Specific [place] 1.015 (1.005-1.025) Urine Protein Trace (Neg-Trace) mg/dL Urine Glucose (UA) Negative (Negative) mg/dL Urine Ketones Negative (Negative) mg/dL Urine Blood Negative (Negative) Urine Nitrite Negative (Negative) Ur Leukocyte Esterase Trace H (Negative) Urine RBC 0-2 (0-2) /HPF Urine WBC 0-5 (0-5) /HPF Ur Squamous Epith Cells 0-2 (0-2) /HPF Urine Bacteria None Seen (None Seen) Hyaline Casts 0-2 (0-2) /LPF Independent Interpretation I performed an independent interpretation of an: EKG Interpretation: EKG at 12:58 shows normal sinus rhythm at 73 beats per minute. No definite acute findings. Medications Administered Discontinued Medications Generic Name Dose Route Start Last Admin Trade Name Freq PRN Reason Stop Dose Admin Sodium Chloride 1,000 mls @ 999 mls/hr 10/21/23 16:30 10/21/23 17:52 Ns IV 10/21/23 17:30 Infused .Q1H1M NAYAN Infusion Iohexol 85 ml 10/21/23 18:22 10/21/23 18:23 Iohexol 350 Mg/Ml 100 Ml Infus..Btl IV 10/21/23 18:23 85 ml ONCE ONE Administration Discharge Plan Discharge Clinical Impression: Abdominal discomfort, Vomiting, Hyperkalemia Patient Disposition: Home, Self-Care Additional Instructions: Your testing in the emergency room today is for the most part very reassuring. I think it is possible that your nausea and vomiting might be related to the antibiotic you were taking. Therefore please do not take anymore of the trimethoprim/sulfamethoxazole (also known as Bactrim). Stopped this medication altogether. Additionally your blood testing showed today that you had a slightly high potassium level. This may also have been a side effect of the antibiotic. Again please make sure you do not take any more of this medication. Drink lot of fluids. Please contact your primary care doctor's office in the morning to arrange a follow up appointment next week. Return to the emergency room if you feel significantly worse Prescriptions: No Action aspirin 81 mg Tablet,Delayed Release (Dr/Ec) 81 mg PO DAILY glyburide 5 mg tablet 10 mg PO DAILY@0900 metformin 1,000 mg tablet 1,000 mg PO BID@1200,1700 clopidogrel [Plavix] 75 mg tablet 75 mg PO DAILY Qty: 30 0RF famotidine 20 mg tablet 20 mg PO DAILY Qty: 30 0RF loratadine 10 mg Tablet 10 mg PO DAILY Qty: 10 0RF prednisone 20 mg tablet 40 mg PO DAILY Qty: 6 0RF azithromycin [Zithromax] 250 mg tablet 250 mg PO DAILY 1 Days Qty: 1 0RF albuterol sulfate 90 mcg/actuation HFA aerosol inhaler inhalation lisinopril 30 mg tablet 30 mg PO DAILY Qty: 30 5RF Rx Instructions: dose increased atorvastatin 80 mg tablet 80 mg PO BEDTIME Qty: 30 5RF Rx Instructions: Cholesterol-lowering medication Referrals: Jemal Bustillos MD [Primary Care Provider] - (Vomiting, mild hyperkalemia) Print Language: Uruguayan
[2023-10-21 11:46] VITALS: BP 142/74; PULSE 87; RESP 18; TEMP 36.8; O2SAT 94; BMI 19.7
[2023-10-21 12:04] LABS: MANUAL DIFF FLAG NO
[2023-10-21 12:09] LABS: Basophils Percent Auto 0.1 % (0-2); Eosinophils Absolute Auto 0.2 X10*3/uL (0.0-0.4); Eosinophils Percent Auto 2.5 % (0-4); Hematocrit 33.4 % (42.0-52.0); Hemoglobin 10.9 g/dl (14.0-18.0); Imm Gran Abs Auto 0.03 X10*3/uL (0.00-0.03); Imm Gran Pct Auto 0.4 % (0.0-0.4); Lymphocytes Absolute Auto 2.1 X10*3/uL (1.2-4.9); Lymphocytes Percent Auto 25.2 % (20-40); Mean Corpuscular HGB Conc 32.6 g/dl (31.0-36.0); Mean Corpuscular Volume 94.9 fL (80.0-98.0); Mean Platelet Volume 9.4 fL (9.4-12.4); Monocytes Absolute Auto 0.6 X10*3/uL (0.1-1.2); Monocytes Percent Auto 7.5 % (2-11); Neutrophils Absolute Auto 5.4 x10*3/uL (2.0-8.3); Neutrophils Percent Auto 64.3 % (45-73); Platelet Count 344 X10*3/uL (160-400); Red Blood Count 3.52 X10*6/uL (4.60-5.80); Red Cell Distribution Width 15.4 % (11.0-16.0); White Blood Count 8.3 X10*3/uL (4.8-10.8)
[2023-10-21 12:20] LABS: Alanine Aminotransferase 22 U/L (0-40); Albumin Level 3.8 g/dL (3.5-5.0); Alkaline Phosphatase 81 U/L (39-117); Anion Gap 15 (12-20); Aspartate Amino Transferase 21 U/L (5-37); Bilirubin Total 0.2 mg/dL (0.0-1.0); Blood Urea Nitrogen 20 mg/dL (9-16); Calcium 9.2 mg/dL (8.4-10.2); Carbon Dioxide 24 mmol/L (22-29); Chloride 104 mmol/L (96-108); Creatinine Clr Calc Pharmacy 34.1; Estimated Glomerular Filt Rate 58; Glucose Random 125 mg/dL (60-115); Lipase 12 U/L (8-78); Magnesium 1.5 mg/dL (1.6-2.6); Potassium 5.6 mmol/L (3.3-5.1); Sodium 137 mmol/L (135-145); Total Protein 6.6 g/dL (6.5-8.0)
--- NOTE | 2023-10-21 12:41 | ECG_ITS ---
Test Reason : HYPERKALEMIC Blood Pressure : / mmHG Vent. Rate : 073 BPM Atrial Rate : 073 BPM P-R Int : 146 ms QRS Dur : 108 ms QT Int : 382 ms P-R-T Axes : 069 -56 032 degrees QTc Int : 420 ms Normal sinus rhythm Incomplete right bundle branch block Left anterior fascicular block Abnormal ECG When compared with ECG of 01-OCT-2023 16:53, No significant change was found Referred By: Nasrin Alfaro Electronically Signed By:Richie Brown
[2023-10-21 15:41] VITALS: BP 155/53; PULSE 62; RESP 16; TEMP 36.6; O2SAT 95
--- NOTE | 2023-10-21 16:04 | PC.NURSE ---
pt brought to exam room, changed into hospital attire, 20G IV placed in right hand
[2023-10-21] MEDS: 0.9 % Sodium Chloride 1,000 ML 999 ML IV (16:37)
--- NOTE | 2023-10-21 17:58 | PC.NURSE ---
pt requesting to eat, pt still needs Ct Abdomen w/ IV con -educated pt on why we cannot allow PO intake at this time. call rios within reach
[2023-10-21 18:03] VITALS: BP 175/57; PULSE 70; RESP 16; TEMP 36.6; O2SAT 97
[2023-10-21] MEDS: iohexoL 350 MG/ML 100 ML INFUS..BTL 85 ML IV (18:23)
--- NOTE | 2023-10-21 18:35 | PC.NURSE ---
per MD Andrew mcneil for pt to eat at this time. pt provided w/ ham sandwich and gingerale
[2023-10-21 18:42] LABS: Appearance Urine Cloudy; Color Urine Yellow; Glucose Urine UA Negative (Negative); Leukocyte Esterase Urine Trace (Negative); Nitrite Urine Negative (Negative); PH 5.5 (5.0-9.0); Specific Gravity - Urine 1.015 (1.005-1.025); UMIC TRIGGER UACC YES; Urine Blood Negative (Negative); Urine Ketones Negative (Negative); Urine Protein Trace mg/dL (Neg-Trace)
[2023-10-21 18:45] LABS: Bacteria Urine None Seen (None Seen); Hyaline Casts Urine 0-2 /LPF (0-2); RBC Urine 0-2 /HPF (0-2); Squamous Epithelial Cell Urine 0-2 /HPF (0-2); WBC Urine 0-5 /HPF (0-5)
[2023-10-21 18:52] LABS: C Reactive Protein < 0.10 mg/dL (< or = 0.50)
[2023-10-21 19:11] VITALS: BP 157/62; PULSE 74; RESP 18; TEMP 37.2; O2SAT 94
--- NOTE | 2023-10-21 19:13 | PC.NURSE ---
Assumed care of pt at 1900. PT a/o resting quietly. PT denies pain at this time. skin pwd, vss, belly distended. This RN discussed plan to address elevated potassium. MD Lozano will order repeat labs as PT rec'd fluids which he reports would help in reducing potassium levels PT on Bactrim which can elevate potassium as well. saftey precautions in place, call rios within reach. Plan of care ongoing
[2023-10-21 20:06] LABS: Anion Gap 14 (12-20); Blood Urea Nitrogen 19 mg/dL (9-16); Calcium 8.6 mg/dL (8.4-10.2); Carbon Dioxide 23 mmol/L (22-29); Chloride 106 mmol/L (96-108); Estimated Glomerular Filt Rate > 60; Glucose Random 90 mg/dL (60-115); Potassium 5.7 mmol/L (3.3-5.1); Sodium 137 mmol/L (135-145)
[2023-10-21] MEDS: Sodium Zirconium Cyclosilicate 10 GM POWD.PACK PO (21:19)
[2023-10-21 21:29] VITALS: BP 176/58; PULSE 80; RESP 16; TEMP 37
== END 2023-10-21 21:30 | disposition home or self-care (01) ==
PROVIDERS: Physician Assistant Medical; Emergency Provider Emergency Medicine; PCP Internal Medicine Medical Oncology
DX: E87.5 Hyperkalemia (principal); R11.2 Nausea with vomiting, unspecified; R10.9 Unspecified abdominal pain; I10 Essential (primary) hypertension; E11.9 Type 2 diabetes mellitus without complications
CPT/HCPCS: 36415; 74177; 76705; 80048; 80053; 81001; 83690; 83735; 85025; 86140; 93005; 96360; 99284; 99285; Q9967

== ENCOUNTER → 2023-10-21 12:41 | Outpatient (BNV) | payer MEDICARE, MEDICAID, SELFPAY | PROVIDERS: Emergency Provider Emergency Medicine; PCP Internal Medicine Medical Oncology; Visit Provider Internal Medicine Cardiovascular Disease | DX: R94.31 Abnormal electrocardiogram [ECG] [EKG] (principal) | CPT/HCPCS: 93010 ==

== ENCOUNTER 2024-02-14 08:17 | Outpatient (AMB) | payer MEDICARE, MEDICAID, SELFPAY ==
[2024-02-14 08:21] VITALS: BP 152/60; PULSE 70
--- NOTE | 2024-02-14 08:21 | MHC.OFFVIS ---
Vital Signs 02/14/24 08:21 Height 5 ft 5 in Weight 120 lb 5.958 oz BMI 20.0 BP 152/60 H Blood Pressure Location Lt brachial Position Sitting Pulse 70 Pulse Source Pulse Oximeter Intake Visit Reasons: 4 mth fu Customer Service Technician Required: No Allergies No Known Allergies [No Known Allergies*] Allergy (Verified 02/14/24 08:23) Medication List - Last Reconciled 02/14/24 by Yeimi Ruelas, SOFTWARE SUPPORT ANALYST-C aspirin 81 mg PO DAILY atorvastatin 80 mg PO BEDTIME glyburide 10 mg PO DAILY@0900 lisinopril 30 mg PO DAILY metformin 1,000 mg PO BID@1200,1700 HPI HPI 4 mth fu: Details: Antolin is an 83-year-old male past medical history of hypertension, hyperlipidemia, diabetes, peripheral vascular disease, COPD, smoking who was admitted to [facility] [place], April 2023, with chest discomfort and ruled in for ACS. He was transported to [facility] and underwent cardiac catheterization showing severe 2 vessel CAD and had PCI. Post PCI was started on aspirin, Brilinta and metoprolol. On follow-up visit his condition was stable. He had had reported GI symptoms with Brilinta and was changed to Plavix. Today he reports he has been doing well since his last visit in September. His med list today does not include Plavix for unclear reason. He denies any chest discomfort at rest or with activity. He denies shortness of breath, PND, orthopnea or edema. No lightheadedness, presyncope, syncope, falls. He tolerates normal ADLs and housework without any concerning symptoms. No bleeding issues reported. [facility] Medical History Angina pectoris, unstable Hyperlipidemia CAD (coronary artery disease) Acute cholecystitis Nausea Peripheral arterial disease TIA (transient ischemic attack) COPD (chronic obstructive pulmonary disease) Hearing loss Elevated cholesterol HTN (hypertension) Staghorn calculus Nephrolithiasis Enlarged prostate Diabetes mellitus, type II Renal cysts, acquired, bilateral History of kidney stones Rotator cuff impingement syndrome Surgical History History of left-sided carotid endarterectomy Hx of cataract surgery Hx of lithotripsy History of surgery Social History Household Members: None Household Members Other:: 0 Housing: House Are you a primary career development engineer to a significant other at home: No Do you presently have visiting nurse or other home services: No Patient Tobacco Use Status: Never used Tobacco Tobacco use type: Cigarette Cigarette Packs Per Day: 1 Cigarettes Per Day: 20.0 Years Smoked: 60 e-Cigarette/Vaping Use: Never Used Advance Directives Date on File: 09/29/22 service: Yes Current occupational status: employed Review of Systems Const All systems reviewed & are unremarkable except as noted in HPI and below ENT Denies dizziness Card Denies chest pain, Denies chest pain at rest, Denies chest pain with activity, Denies rapid heart rate, Denies pedal edema, Denies edema, Denies leg edema, Denies lightheadedness, Denies palpitations, Denies dyspnea, Denies dyspnea on exertion and Denies orthopnea Resp Denies cough, Denies dyspnea and Denies dyspnea on exertion GI Denies hematochezia and Denies change in stool character Musc Denies abnormal gait, Reports limited range of motion, Reports muscle cramps, Denies muscle weakness, Denies numbness, Denies radiating pain into limb, Denies stiffness and Denies tingling Neuro Denies abnormal gait, Denies dizziness, Denies numbness and Denies tingling Endo Denies palpitations Physical Exam Vital Signs: Last Vital Signs Pulse 70 02/14/24 08:21 BP 152/60 H 02/14/24 08:21 BMI result Body Mass Index 20.0 Const General: cooperative, healthy appearing, comfortable and no acute distress Orientation/consciousness: patient oriented x3 Neck Neck: Yes normal visual inspection and Yes no JVD Resp Effort & Inspection: normal respiratory effort Auscultation: clear to auscultation bilaterally, no rales, no rhonchi and no wheezes Cardio Jugular venous distension: no JVD Rate: regular rate Rhythm: regular rhythm Heart sounds: S1 normal heart sound present, S2 normal heart sound present, no murmurs and no rubs Neuro General: patient oriented x3 Extrem General: Yes normal to inspection, No no pedal edema and No calf tenderness Psych Appearance: grossly normal Mental Status: mental status grossly normal Speech and movement: Normal speech and movement present Assessment & Plan Assessment & Plan (1) Non-ST elevation UT (NSTEMI): Code(s): I21.4 - Non-ST elevation (NSTEMI) myocardial infarction Category: Medical Plan: [place] [facility] [place] with chest discomfort. He ruled in for ACS and was started on appropriate medications. Echocardiogram showed EF 60-65%, basal inferior lateral and anterior lateral hypokinesis, circumflex territory. He was transferred to [facility] and underwent cardiac catheterization on 05/25/2023 showing severe two-vessel CAD. He had 2 stents placed to the proximal left circumflex and had balloon angioplasty to the proximal RCA. Since that time he has had no recurrent chest discomfort. Initially he was on metoprolol but stopped it due to possible GI side effects. He is taking aspirin, indefinitely. On last visit he was on Plavix 75 mg daily, however today this is no longer on his med list. It seems he did not get refills following last prescription. He is on high-dose atorvastatin with ideal LDL goal less than 70. He is due for a fasting lipid profile. Blood pressure is not optimally controlled. Initial blood pressure today 152/60. Labs done last spring do show elevated potassium. He continues on lisinopril 30 mg daily at this point. Will send him for labs today including CMP, CBC, lipids. He will likely need alternate antihypertensive. Will plan restart of Plavix if CBC shows no concern. Signs and symptoms of angina reviewed. He still declines cardiac rehab. Cardiology follow-up in 4 months, sooner if needed (2) CAD (coronary artery disease): Code(s): I25.10 - Atherosclerotic heart disease of cherokee coronary artery without angina pectoris Category: Medical Qualifiers: Coronary Disease-Associated Artery/Lesion type: [place]rokee artery [place] vs. transplanted heart: cherokee heart Associated angina: unspecified whether angina present Qualified Code(s): I25.10 - Atherosclerotic heart disease of cherokee coronary artery without angina pectoris Plan: As above (3) S/P cardiac cath: Comment: 05/25/2023, lad proximal 60% stenosis, mid 50% stenosis, D1 70% stenosis, left circumflex proximal 90% stenosis, to ALVAREZ placed with residual 0% stenosis, OM1 50% stenosis RCA proximal 90% stenosis, balloon angioplasty done with residual 0% stenosi Code(s): Z98.890 - Other specified postprocedural states Category: Surgical Plan: As above (4) Stented coronary artery: Code(s): Z95.5 - Presence of coronary angioplasty implant and graft Category: Surgical Plan: 2 ALVAREZ to the left circumflex (5) Hyperlipidemia: Code(s): E78.5 - Hyperlipidemia, unspecified Category: Medical Qualifiers: Hyperlipidemia type: unspecified Qualified Code(s): E78.5 - Hyperlipidemia, unspecified Plan: [place] LDL goal less than 70. Patient is on atorvastatin 80 mg daily. Fasting lipids ordered. (6) HTN (hypertension): Code(s): I10 - Essential (primary) hypertension Category: Medical Qualifiers: Hypertension type: primary hypertension Qualified Code(s): I10 - Essential (primary) hypertension Plan: As above Plan Time spent on chart review, documentation, interview and assessment Orders: Orders Complete Blood Count Auto Diff Today Z95.5 - Presence of coronary angioplasty implant and graft Coding Level of Care Code Est Pt Level 4 (82084) Diagnoses Non-ST elevation UT (NSTEMI) I21.4 Coronary artery disease involving cherokee coronary artery of cherokee heart, unspecified whether angina present I25.10 Coronary Disease-Associated Artery/Lesion type: [place] artery [place] vs. transplanted heart: cherokee heart Associated angina: unspecified whether angina present S/P cardiac cath Z98.890 Stented coronary artery Z95.5 Hyperlipidemia, unspecified hyperlipidemia type E78.5 Hyperlipidemia type: unspecified Primary hypertension I10 Hypertension type: primary hypertension Time Spent (min) 28
== END 2024-02-14 08:42 | disposition home or self-care (01) ==
PROVIDERS: PCP Internal Medicine Medical Oncology; Visit Provider Nurse Practitioner Family
DX: I21.4 Non-ST elevation (NSTEMI) myocardial infarction (principal); I25.10 Atherosclerotic heart disease of native coronary artery without angina pectoris; Z98.890 Other specified postprocedural states; Z95.5 Presence of coronary angioplasty implant and graft; E78.5 Hyperlipidemia, unspecified; I10 Essential (primary) hypertension
CPT/HCPCS: 99214

== ENCOUNTER 2024-02-14 08:17 | Outpatient (REF) | payer MEDICARE, SELFPAY ==
[2024-02-14 09:04] LABS: MANUAL DIFF FLAG NO
[2024-02-14 09:49] LABS: Basophils Percent Auto 0.4 % (0-2); Eosinophils Absolute Auto 0.2 X10*3/uL (0.0-0.4); Eosinophils Percent Auto 2.5 % (0-4); Hematocrit 37.2 % (42.0-52.0); Imm Gran Abs Auto 0.05 X10*3/uL (0.00-0.03); Imm Gran Pct Auto 0.5 % (0.0-0.4); Lymphocytes Absolute Auto 2.6 X10*3/uL (1.2-4.9); Lymphocytes Percent Auto 26.6 % (20-40); Mean Corpuscular HGB Conc 32.3 g/dl (31.0-36.0); Mean Corpuscular Hemoglobin 31.2 pg (27.0-33.0); Mean Corpuscular Volume 96.6 fL (80.0-98.0); Mean Platelet Volume 10.2 fL (9.4-12.4); Monocytes Absolute Auto 0.8 X10*3/uL (0.1-1.2); Monocytes Percent Auto 8.5 % (2-11); Neutrophils Percent Auto 61.5 % (45-73); Platelet Count 304 X10*3/uL (160-400); Red Blood Count 3.85 X10*6/uL (4.60-5.80); Red Cell Distribution Width 14.6 % (11.0-16.0); White Blood Count 9.7 X10*3/uL (4.8-10.8)
[2024-02-14 10:39] LABS: Alanine Aminotransferase 70 U/L (0-40); Albumin Level 4.2 g/dL (3.5-5.0); Alkaline Phosphatase 92 U/L (39-117); Anion Gap 14 (12-20); Aspartate Amino Transferase 30 U/L (5-37); Bilirubin Total 0.3 mg/dL (0.0-1.0); Blood Urea Nitrogen 26 mg/dL (9-16); Calcium 9.6 mg/dL (8.4-10.2); Carbon Dioxide 22 mmol/L (22-29); Chloride 109 mmol/L (96-108); Cholesterol 101 mg/dL (<200); Estimated Glomerular Filt Rate > 60; Glucose Random 126 mg/dL (60-115); HDL Cholesterol 29 mg/dL (>40); LDL Cholesterol Calculated 38 mg/dL (<100); Potassium 5.5 mmol/L (3.3-5.1); Sodium 139 mmol/L (135-145); Total Protein 6.9 g/dL (6.5-8.0); Triglycerides 174 mg/dL (<150)
== END 2024-02-14 08:18 | disposition home or self-care (01) ==
LOC: HO.LAB 08:17
PROVIDERS: PCP Internal Medicine Medical Oncology; Visit Provider Nurse Practitioner Family
DX: I25.10 Atherosclerotic heart disease of native coronary artery without angina pectoris (principal); I10 Essential (primary) hypertension; E11.51 Type 2 diabetes mellitus with diabetic peripheral angiopathy without gangrene; E78.5 Hyperlipidemia, unspecified; F17.210 Nicotine dependence, cigarettes, uncomplicated; J44.9 Chronic obstructive pulmonary disease, unspecified; I21.4 Non-ST elevation (NSTEMI) myocardial infarction; Z95.5 Presence of coronary angioplasty implant and graft; Z79.02 Long term (current) use of antithrombotics/antiplatelets; Z98.890 Other specified postprocedural states
CPT/HCPCS: 36415; 80053; 80061; 85025; 99212

== ENCOUNTER 2024-02-25 08:50 | Outpatient (REF) | payer MEDICARE, SELFPAY ==
[2024-02-25 11:24] LABS: Anion Gap 12 (12-20); Blood Urea Nitrogen 29 mg/dL (9-16); Calcium 9.6 mg/dL (8.4-10.2); Carbon Dioxide 24 mmol/L (22-29); Chloride 106 mmol/L (96-108); Estimated Glomerular Filt Rate > 60; Glucose Random 338 mg/dL (60-115); Magnesium 1.9 mg/dL (1.6-2.6); Potassium 5.3 mmol/L (3.3-5.1); Sodium 137 mmol/L (135-145)
== END 2024-02-25 08:51 | disposition home or self-care (01) ==
LOC: HO.LAB 08:50
PROVIDERS: PCP Internal Medicine Medical Oncology; Visit Provider Nurse Practitioner Family
DX: Z95.5 Presence of coronary angioplasty implant and graft (principal)
CPT/HCPCS: 36415; 80048; 83735

== ENCOUNTER 2024-03-30 09:31 | Outpatient (AMB) | payer MEDICARE, MEDICAID, SELFPAY ==
--- NOTE | 2024-03-30 09:48 | MHC.OFFVIS ---
Intake Visit Reasons: CT Follow up(Done in September) Intake Note: Patient is present for CT Follow Up Urology Med: Vitamin B6 Antibiotic Allergy: None Blood Thinner: Aspirin, Plavix Patient reports that for a while he has increased frequency he has to go to urinate every 2 hours No pain reported but has a strong urge to go Public Health Service Officer Required: No Accompanied by: Self / Same As Patient Allergies No Known Allergies [No Known Allergies*] Allergy (Verified 03/30/24 09:48) HPI Comments Details: Antolin is a pleasant male. He is a patient of Dr. Bustillos. He is seen for the following urologic conditions - renal cysts - lower urinary tract symptoms - nephrolithiasis Interval surveillance Urinates every 2 hours with urinary urgency Trial tamsulosin Bladder ultrasound Follow-up cystoscopy Diabetic Nephrolithiasis Renal imaging with large stones on left side Bilateral cysts CT angiogram with 2 cm stone left renal pelvis - CT 06/22 oz 2 cm stone within left renal pelvis - 03/22 renal ultrasound 4 mm stone bilateral Intervention - 10/20 left USR Composition - 10/20 calcium oxalate monohydrate 80% Did not tolerate potassium citrate On vitamin B6 [facility] Medical History Angina pectoris, unstable Hyperlipidemia CAD (coronary artery disease) Acute cholecystitis Nausea Peripheral arterial disease TIA (transient ischemic attack) COPD (chronic obstructive pulmonary disease) Hearing loss Elevated cholesterol HTN (hypertension) Staghorn calculus Nephrolithiasis Enlarged prostate Diabetes mellitus, type II Renal cysts, acquired, bilateral History of kidney stones Rotator cuff impingement syndrome Surgical History History of left-sided carotid endarterectomy Hx of cataract surgery Hx of lithotripsy History of surgery Social History Household Members: None Household Members Other:: 0 Housing: House Are you a primary family day care provider to a significant other at home: No Do you presently have visiting nurse or other home services: No Patient Tobacco Use Status: Never used Tobacco Tobacco use type: Cigarette Cigarette Packs Per Day: 1 Cigarettes Per Day: 20.0 Years Smoked: 60 e-Cigarette/Vaping Use: Never Used Advance Directives Date on File: 09/29/22 service: Yes Current occupational status: employed Review of Systems Const Denies chills and Denies fever(s) Card Reports no additional complaints and Denies syncope Resp Denies cough GI Denies abdominal pain and Denies heartburn Reports as per HPI and Denies change in libido Neuro Denies syncope Psych Denies change in libido Endo Denies change in libido Physical Exam Const General: cooperative, healthy appearing, comfortable and no acute distress Orientation/consciousness: patient oriented x3 HEENT Face and sinus: Yes normal facial exam Mouth: moist mucous membranes Neck Neck: Yes normal visual inspection, Yes full ROM and Yes trachea midline Chest Chest palpation & inspection: normal inspection of the chest Resp Effort & Inspection: normal respiratory effort, able to speak in complete sentences and no respiratory distress GI Inspection: Yes normal to inspection Back/Spine/Pelvis Cervical Spine: normal cervical lordosis Thoracic/Lumbar Spine: thoracic and lumbar spine normal to inspection Skin General skin exam: no rashes or lesions noted Neuro General: patient oriented x3, gait normal, tone normal and moves all extremities Extrem General: Yes normal to inspection and Yes capillary refill normal Assessment & Plan Assessment & Plan (1) Enlarged prostate: Code(s): N40.0 - Benign prostatic hyperplasia without lower urinary tract symptoms Category: Medical (2) Calcium oxalate kidney stones: Code(s): N20.0 - Calculus of kidney Category: Medical Plan Two month follow-up cystoscopy Orders: Orders US bladder Today N40.0 - Benign prostatic hyperplasia without lower urinary tract symptoms Medications: New tamsulosin (Flomax) 0.4 mg PO BEDTIME 30 days 30 tabs 1RF N40.0 - Benign prostatic hyperplasia without lower urinary tract symptoms Patient Instructions: Imaging studies, laboratory and physical exam results were discussed and reviewed in detail. No major barriers to patient understanding were identified. An opportunity to ask questions regarding the treatment plan was provided. All questions were answered. The patient expressed understanding and agreement with the above treatment plan. The patient is aware they should contact our office by phone for worsening of their current condition or the appearance of new urologic symptoms. Compliance is encouraged with any medications and followup testing that is ordered. It is a privilege to participate in the urologic care of your patient. If you have any questions or concerns regarding treatment for the above conditions, or other urologic issues, please do not hesitate to contact me. The office telephone contact is [phone]. This note is constructed using voice recognition software. While every effort has been made to ensure accuracy labor delivery specialist errors may have been included. Yours sincerely, Dr Les Alcantar MD, [facility] - Urology Providers of Expert, Compassionate Care for the Genitourinary System Coding Level of Care Code Est Pt Level 4 (79299) Diagnoses Enlarged prostate N40.0 Calcium oxalate kidney stones N20.0
== END 2024-03-30 10:20 | disposition home or self-care (01) ==
LOC: HO.HUSH 09:31
PROVIDERS: PCP Internal Medicine Medical Oncology; Visit Provider Urology
DX: N40.0 Benign prostatic hyperplasia without lower urinary tract symptoms (principal); N20.0 Calculus of kidney
CPT/HCPCS: 99214

== ENCOUNTER → 2024-03-30 09:31 | Outpatient (BNVA) | payer MEDICARE, MEDICAID, SELFPAY | PROVIDERS: PCP Internal Medicine Medical Oncology; Visit Provider Urology | DX: N20.0 Calculus of kidney (principal); N28.1 Cyst of kidney, acquired; N40.0 Benign prostatic hyperplasia without lower urinary tract symptoms | CPT/HCPCS: 99212 ==

== ENCOUNTER 2024-05-04 09:06 | Emergency (ER) | payer MEDICARE, MEDICAID, SELFPAY ==
--- NOTE | ~2024-05-04 | US_ITS ---
EXAMINATION: US ABDOMEN LIMITED CLINICAL INFORMATION: Right upper quadrant pain. Flank pain.. COMPARISON: Ultrasound limited dated October 21, 2023. TECHNIQUE: Real-time imaging of the right upper quadrant abdominal viscera using grayscale and color Doppler technique. FINDINGS: Limited examination. Multiple layering hyperechoic lesions within the gallbladder lumen with posterior shadowing. Gallbladder wall measures 3 mm. No pericholecystic fluid collection. Common bile duct measures 3 mm. Right kidney measures 11 cm with normal echotexture. No hydronephrosis. There is a 3 cm exophytic lobulated isoechoic lesion without flow on color Doppler interrogation. No gross ascites. US/US abdomen limited IMPRESSION: Cholelithiasis and up to normal limits gallbladder wall. 3 cm exophytic lesion, upper pole right kidney, nonspecific. According to prior CT October 21, 2023 this lesion is cystic. No ascites. Electronically signed by: Polo Riley MD 05/04/2024 02:21 PM EST
--- NOTE | ~2024-05-04 | XR_ITS ---
EXAMINATION: XR CHEST CLINICAL INFORMATION: SOB, congestion COMPARISON: 10/01/2023, 09/21/2023, 05/22/2023. TECHNIQUE: 2 views of the chest were obtained. FINDINGS: There is mild rightward rotation. The cardiac, hilar, and mediastinal contours are normal. The lungs diffusely hyperaerated, and mildly hyperlucent, consistent with COPD. They are otherwise clear. There is no pneumothorax or pleural effusion. There is no focal osseous or soft tissue abnormality. Mild spinal degenerative changes. XR/XR chest 2V IMPRESSION: COPD. No active superimposed disease. Electronically signed by: Danny Go MD 05/04/2024 11:13 AM SUSAN
[2024-05-04 09:19] VITALS: BP 148/53; PULSE 81; RESP 20; TEMP 36.7; O2SAT 98; BMI 27.3
[2024-05-04 09:47] LABS: MANUAL DIFF FLAG NO
[2024-05-04 09:50] LABS: Basophils Percent Auto 0.3 % (0-2); Eosinophils Absolute Auto 0.3 X10*3/uL (0.0-0.4); Eosinophils Percent Auto 2.5 % (0-4); Hematocrit 36.2 % (42.0-52.0); Hemoglobin 12.1 g/dl (14.0-18.0); Imm Gran Abs Auto 0.06 X10*3/uL (0.00-0.03); Imm Gran Pct Auto 0.5 % (0.0-0.4); Lymphocytes Absolute Auto 2.1 X10*3/uL (1.2-4.9); Lymphocytes Percent Auto 17.8 % (20-40); Mean Corpuscular HGB Conc 33.4 g/dl (31.0-36.0); Mean Corpuscular Hemoglobin 31.3 pg (27.0-33.0); Mean Corpuscular Volume 93.8 fL (80.0-98.0); Monocytes Absolute Auto 0.7 X10*3/uL (0.1-1.2); Monocytes Percent Auto 6.1 % (2-11); Neutrophils Absolute Auto 8.5 x10*3/uL (2.0-8.3); Neutrophils Percent Auto 72.8 % (45-73); Platelet Count 328 X10*3/uL (160-400); Red Blood Count 3.86 X10*6/uL (4.60-5.80); Red Cell Distribution Width 14.8 % (11.0-16.0); White Blood Count 11.6 X10*3/uL (4.8-10.8)
[2024-05-04 09:54] LABS: Appearance Urine Clear; Color Urine Yellow; Glucose Urine UA 250 mg/dL (Negative); Leukocyte Esterase Urine Small (1+) (Negative); Nitrite Urine Negative (Negative); Specific Gravity - Urine 1.015 (1.005-1.025); UMIC TRIGGER UACC YES; Urine Blood Negative (Negative); Urine Ketones Negative (Negative); Urine Protein 30 (1+) mg/dL (Neg-Trace)
[2024-05-04 09:56] LABS: Bacteria Urine None Seen (None Seen); Hyaline Casts Urine 0-2 /LPF (0-2); RBC Urine 0-2 /HPF (0-2); Squamous Epithelial Cell Urine 0-2 /HPF (0-2); UACC Culture Trigger YES
[2024-05-04 10:03] LABS: Alanine Aminotransferase 182 U/L (0-40); Albumin Level 3.7 g/dL (3.5-5.0); Alkaline Phosphatase 92 U/L (39-117); Anion Gap 13 (12-20); Aspartate Amino Transferase 67 U/L (5-37); Bilirubin Total 0.4 mg/dL (0.0-1.0); Blood Urea Nitrogen 28 mg/dL (9-16); Calcium 8.8 mg/dL (8.4-10.2); Carbon Dioxide 25 mmol/L (22-29); Chloride 102 mmol/L (96-108); Creatinine Clr Calc Pharmacy 41.4; Estimated Glomerular Filt Rate 56; Glucose Random 309 mg/dL (60-115); Potassium 4.9 mmol/L (3.3-5.1); Sodium 135 mmol/L (135-145); Total Protein 6.4 g/dL (6.5-8.0)
[2024-05-04 10:27] LABS: Influenza A PCR NEGATIVE (Negative); Influenza B PCR NEGATIVE (Negative); Resp Syncy Virus RNA Qual PCR NEGATIVE (Negative); SARS COV2 PCR INHOUSE NEGATIVE (Negative)
[2024-05-04 10:44] VITALS: BP 151/48; PULSE 65; RESP 13; TEMP 36.5; O2SAT 97
--- NOTE | 2024-05-04 11:13 | PC.NURSE ---
pt is alert and oriented, skin pwd, respirations even and unlabored, ls slightly diminished, pt reporting for about three weeks not feeling well, generally weak, headache-pressure, intermittent dry cough, congestion, right sided flank pain but no nausea no urinary symptoms, vs stable
[2024-05-04] MEDS: Ibuprofen 400 MG TABLET PO (11:22)
[2024-05-04] MEDS: Acetaminophen 325 MG TABLET 975 MG PO (11:23)
--- NOTE | 2024-05-04 11:33 | ED.GENADULT ---
[facility] - General Adult General Chief complaint: Abdominal Pain Stated complaint: Congestion Time Seen by Provider: 05/04/24 10:44 Source: patient Mode of arrival: ambulatory History of Present Illness ED Provider: Ag [facility] narrative: 83-year-old male reports that he has had a headache for proximally 1 week with associated nasal congestion and, running nose, and now reports that he has had right flank pain /upper quadrant pain that started 2 days ago and states that he does not feel well but he thinks he may have a kidney stone. He denies any ear pain or throat pain and denies any cough. Related Data Home Medications ?Medication ?Instructions ?Recorded ?Confirmed aspirin 81 mg tablet,delayed 81 mg PO DAILY 09/24/22 02/14/24 release glyburide 5 mg tablet 10 mg PO DAILY@0900 09/14/23 02/14/24 metformin 1,000 mg tablet 1,000 mg PO BID@1200,1700 09/14/23 02/14/24 Previous Rx's ?Medication ?Instructions ?Recorded atorvastatin 80 mg tablet 80 mg PO BEDTIME #90 tabs 12/21/23 clopidogrel 75 mg tablet (Plavix) 75 mg PO DAILY #90 tabs 02/14/24 lisinopril 5 mg tablet 5 mg PO DAILY #90 tabs 02/15/24 amlodipine 10 mg tablet 10 mg PO DAILY 30 days #30 tabs 02/25/24 tamsulosin 0.4 mg capsule (Flomax) 0.4 mg PO BEDTIME 30 days #30 tabs 03/30/24 Allergies Allergy/AdvReac Type Severity Reaction Status Date / Time No Known Allergies Allergy Verified 05/04/24 09:21 [No Known Allergies*] Review of Systems Review of Systems: Pertinent positives and negatives as stated in HPI [facility] Past Medical History Source: nursing notes reviewed Medical History Angina pectoris, unstable Hyperlipidemia CAD (coronary artery disease) Acute cholecystitis Nausea Peripheral arterial disease TIA (transient ischemic attack) COPD (chronic obstructive pulmonary disease) Hearing loss Elevated cholesterol HTN (hypertension) Staghorn calculus Nephrolithiasis Enlarged prostate Diabetes mellitus, type II Renal cysts, acquired, bilateral History of kidney stones Rotator cuff impingement syndrome Surgical History History of left-sided carotid endarterectomy Hx of cataract surgery Hx of lithotripsy History of surgery Social History Social History Household Members: None Household Members Other:: 0 Housing: House Are you a primary personal care assistant to a significant other at home: No Do you presently have visiting nurse or other home services: No Patient Tobacco Use Status: Never used Tobacco Tobacco use type: Cigarette Cigarette Packs Per Day: 1 Cigarettes Per Day: 20.0 Years Smoked: 60 Smoked in Last 30 Days: Yes e-Cigarette/Vaping Use: Never Used Use of substances other than those prescribed or required for medical reasons: No Advance Directives: Yes Advance Directives on File: Yes Advance Directives Date on File: 09/29/22 Do you have a plan to hurt others: No Plan service: Yes Current occupational status: employed Physical Exam ED Vital Signs: Vital Signs - 24 hr 05/04/24 09:19 05/04/24 10:44 Temperature 98.1 F 97.7 F Pulse Rate 81 65 Respiratory Rate 20 13 Blood Pressure 148/53 H 151/48 H Pulse Oximetry 98 97 Oxygen Delivery Method Room Air Room Air BMI result Body Mass Index 27.3 VITAL SIGNS: Reviewed. GENERAL: Well developed, well nourished, in no acute distress. HEAD: Normocephalic/atraumatic EYES: PERRLA, EOMI EARS: Ext canals without abnormality, TMs non-bulging and non-erythematous NOSE: Nares patent bilateral OROPHARYNX: no oral lesions noted, posterior pharynx clear and non-erythematous without noted tonsillar enlargement/erythema/exudates NECK: Supple, no adenopathy LUNGS: Normal breath sounds. No adventitious sounds or accessory muscle use. SpO2<98> CARDIOVASCULAR: Regular rate and rhythm without noted murmurs ABDOMEN: Soft, non-tender, non-distended with bowel sounds. MUSCULOSKELETAL: No tenderness, deformities, or effusions noted on gross inspection. EXTREMITIES: No cyanosis, clubbing or edema. SKIN: Inspection of the skin reveals no rashes NEUROLOGIC: Alert and oriented x 4. Strength and sensation to light touch were grossly intact x 4, no facial asymmetry, no pronator drift, cranial nerves 2-12 are grossly intact.. Medications Administered Discontinued Medications Generic Name Dose Route Start Last Admin Trade Name Freq PRN Reason Stop Dose Admin Acetaminophen 975 mg 05/04/24 11:03 05/04/24 11:23 Acetaminophen 325 Mg Tablet PO 05/04/24 11:04 975 mg ONCE ONE Administration Ibuprofen 400 mg 05/04/24 11:03 05/04/24 11:22 Ibuprofen 400 Mg Tablet PO 05/04/24 11:04 400 mg ONCE ONE Administration Medical Decision Making Medical Decision Making MDM Narrative: 83-year-old male with history of COPD and has a history and clinical presentation, DD DX: Pneumonia, cholecystitis, renal colic, viral illness INTERVENTION: Combination analgesics. I reviewed interpreted all investigations there is a noninfectious elevation of the white count, patient is otherwise afebrile, there is a chronic anemia and no thrombocytopenia. There is no demonstrated DEISY /electrolyte or liver enzyme derangements other than mildly elevated transaminases without elevation of alkaline phosphatase.. Ultrasound is negative for evidence to suggest acute cholecystitis but there is identification of cholelithiasis. Urinalysis negative for UTI or hematuria, chest x-ray is negative for evidence of infiltrate or venous congestion on my interpretation. Viral testing is negative for COVID-19/influenza. 1442: I re-evaluated the patient at bedside and he reports he is feeling much improved and is quite hungry and is eating a tray at this time. He is otherwise discharged with a referral to follow-up for elective gallbladder removal for the cholelithiasis which is suspected to be causing him this intermittent discomfort. Differential Diagnosis Differential Diagnoses: The differential diagnosis associated with the presentation includes see above Admission/Observation Consideration of admission/observation: Escalation of care including admission/observation considered patient does not meet inpatient level of care Lab Data MDM Lab Attestation statement: I reviewed the patient's lab results. see above 05/04/24 09:42 05/04/24 09:42 Labs: Lab Results 05/04/24 Range/Units 09:42 WBC 11.6 H (4.8-10.8) X10*3/uL RBC 3.86 L (4.60-5.80) X10*6/uL Hgb 12.1 L (14.0-18.0) g/dl Hct 36.2 L (42.0-52.0) % MCV 93.8 (80.0-98.0) fL MCH 31.3 (27.0-33.0) pg MCHC 33.4 (31.0-36.0) g/dl RDW 14.8 (11.0-16.0) % Plt Count 328 (160-400) X10*3/uL MPV 10.0 (9.4-12.4) fL Immature Gran % (Auto) 0.5 H (0.0-0.4) % Neut % (Auto) 72.8 (45-73) % Lymph % (Auto) 17.8 L (20-40) % [place] % (Auto) 6.1 (2-11) % Eos % (Auto) 2.5 (0-4) % Baso % (Auto) 0.3 (0-2) % Lymph # (Auto) 2.1 (1.2-4.9) X10*3/uL [place] # (Auto) 0.7 (0.1-1.2) X10*3/uL Eos # (Auto) 0.3 (0.0-0.4) X10*3/uL Baso # (Auto) 0.0 (0.0-0.2) X10*3/uL Abs Immat Gran (auto) 0.06 H (0.00-0.03) X10*3/uL Absolute Neuts (auto) 8.5 H (2.0-8.3) x10*3/uL Absolute Nucleated RBC 0.000 (0.0-0.012) X10*3/uL Nucleated RBC % (auto) 0.0 (0.0-0.2) /100WBC Sodium 135 (135-145) mmol/L Potassium 4.9 (3.3-5.1) mmol/L Chloride 102 (96-108) mmol/L Carbon Dioxide 25 (22-29) mmol/L Anion Gap 13 (12-20) BUN 28 H (9-16) mg/dL Creatinine 1.23 (0.5-1.4) mg/dL Estim Creat Clear Calc 41.4 Estimated GFR 56 Random Glucose 309 H (60-115) mg/dL Calcium 8.8 D (8.4-10.2) mg/dL Total Bilirubin 0.4 (0.0-1.0) mg/dL AST 67 H (5-37) U/L ALT 182 H (0-40) U/L Alkaline Phosphatase 92 (39-117) U/L Total Protein 6.4 L (6.5-8.0) g/dL Albumin 3.7 (3.5-5.0) g/dL Urine Color Yellow Urine Appearance Clear Urine pH 5.0 (5.0-9.0) Ur Specific [place] 1.015 (1.005-1.025) Urine Protein 30 (1+) H (Neg-Trace) mg/dL Urine Glucose (UA) 250 H (Negative) mg/dL Urine Ketones Negative (Negative) mg/dL Urine Blood Negative (Negative) Urine Nitrite Negative (Negative) Ur Leukocyte Esterase Small (1+) H (Negative) Urine RBC 0-2 (0-2) /HPF Urine WBC 11-20 H (0-5) /HPF Ur Squamous Epith Cells 0-2 (0-2) /HPF Urine Bacteria None Seen (None Seen) Hyaline Casts 0-2 (0-2) /LPF Influenza Type A (PCR) NEGATIVE (Negative) Influenza Type B (PCR) NEGATIVE (Negative) RSV RNA Qual (PCR) NEGATIVE (Negative) SARS-CoV-2 RNA (RT-PCR) NEGATIVE (Negative) External Record Review External record reviewed: Prior outpatient labs and Prior outpatient radiology Chronic Conditions Patient?s care impacted by: Diabetes Discharge Plan Discharge Clinical Impression: Right flank pain, Cholelithiasis Patient Disposition: Home, Self-Care Instructions: Flank Pain (ED), Gallstones (ED) Additional Instructions: resume all home medications as prescribed. Follow-up with your primary care doctor and referral has been provided to you for follow-up with general surgery and further evaluation of your gallbladder that has stones inside. Do not hesitate to return to the emergency room for any worsening of symptoms. Prescriptions: No Action atorvastatin 80 mg tablet 80 mg PO BEDTIME Qty: 90 3RF clopidogrel [Plavix] 75 mg tablet 75 mg PO DAILY Qty: 90 1RF Rx Instructions: to help keep heart stent open lisinopril 5 mg tablet 5 mg PO DAILY Qty: 90 1RF amlodipine 10 mg tablet 10 mg PO DAILY 30 Days Qty: 30 5RF Rx Instructions: Dose increase - BP medication aspirin 81 mg Tablet,Delayed Release (Dr/Ec) 81 mg PO DAILY glyburide 5 mg tablet 10 mg PO DAILY@0900 metformin 1,000 mg tablet 1,000 mg PO BID@1200,1700 tamsulosin [Flomax] 0.4 mg capsule 0.4 mg PO BEDTIME 30 Days Qty: 30 1RF Referrals: Jemal Bustillos MD [Primary Care Provider] - Paulino Garcia MD [Physician] - Print Language: Mosotho
[2024-05-04 14:52] VITALS: BP 151/48; PULSE 65; RESP 13; TEMP 36.5; O2SAT 97
== END 2024-05-04 14:53 | disposition home or self-care (01) ==
PROVIDERS: Emergency Provider Student in an Organized Health Care Education/Training Program; PCP Internal Medicine Medical Oncology
DX: K80.20 Calculus of gallbladder without cholecystitis without obstruction (principal); R10.2 Pelvic and perineal pain; R06.02 Shortness of breath; R10.11 Right upper quadrant pain; Z79.899 Other long term (current) drug therapy; Z03.818 Encounter for observation for suspected exposure to other biological agents ruled out
CPT/HCPCS: 0241U; 36415; 71046; 76705; 80053; 81001; 85025; 87086; 99284

== ENCOUNTER → 2024-05-04 10:48 | Outpatient (BNV) | payer MEDICARE, MEDICAID, SELFPAY | PROVIDERS: Emergency Provider Student in an Organized Health Care Education/Training Program; PCP Internal Medicine Medical Oncology; Visit Provider Radiology Diagnostic Radiology | DX: J44.9 Chronic obstructive pulmonary disease, unspecified (principal); K80.80 Other cholelithiasis without obstruction | CPT/HCPCS: 71046; 76705 ==

== ENCOUNTER 2024-05-08 08:09 | Outpatient (AMB) | payer MEDICARE, MEDICAID, SELFPAY ==
--- NOTE | 2024-05-08 08:27 | MHC.OFFVIS ---
Vital Signs 05/08/24 08:35 Height 5 ft 5 in Weight 121 lb BMI 20.1 BP 187/75 H Blood Pressure Location Rt brachial Position Sitting Pulse 84 Intake Visit Reasons: gallstones Intake Note: Patient referred after ER visit on 05-04-24. Patient c/o; abdominal pain. Denies nausea, diarrhea. ABD US: 05-04-2024. Nascar Driver Required: No Accompanied by: Self / Same As Patient Allergies No Known Allergies [No Known Allergies*] Allergy (Verified 05/08/24 08:29) HPI Comments Details: Evaluation of symptomatic cholelithiasis. He has had several bouts of right upper quadrant pain radiating around to his back. He had 1 intact so severe that he presented to the ER for further evaluation and pain control. He has had similar episodes since that visit. Patient otherwise tolerating a diet. He has regular bowel habits. He has never been jaundiced before. He is not sure if he has fatty food intolerance per se. Chart was reviewed and patient evaluated. Patient was had coronary stenting and prepped vascular stenting among other issues. He continues to smoke. He states that he is not on any blood thinners aside from aspirin although he has Plavix listed but he does not take it any longer . [facility] Medical History Angina pectoris, unstable Hyperlipidemia CAD (coronary artery disease) Acute cholecystitis Nausea Peripheral arterial disease TIA (transient ischemic attack) COPD (chronic obstructive pulmonary disease) Hearing loss Elevated cholesterol HTN (hypertension) Staghorn calculus Nephrolithiasis Enlarged prostate Diabetes mellitus, type II Renal cysts, acquired, bilateral History of kidney stones Rotator cuff impingement syndrome Surgical History History of left-sided carotid endarterectomy Hx of cataract surgery Hx of lithotripsy History of surgery Social History Household Members: None Household Members Other:: 0 Housing: House Are you a primary adult live in caregiver to a significant other at home: No Do you presently have visiting nurse or other home services: No Patient Tobacco Use Status: Never used Tobacco Tobacco use type: Cigarette Cigarette Packs Per Day: 1 Cigarettes Per Day: 20.0 Years Smoked: 60 e-Cigarette/Vaping Use: Never Used Advance Directives Date on File: 09/29/22 service: Yes Current occupational status: employed Physical Exam Chest Other: Chest breath sounds bilaterally, consistent with COPD. HS 1 in 2 GI Other: Abdomen is thin, soft, benign Assessment & Plan Assessment & Plan (1) Recurrent biliary colic: Code(s): K80.50 - Calculus of bile duct without cholangitis or cholecystitis without obstruction Category: Surgical Plan Risks, benefits, alternatives laparoscopic possible open cholecystectomy reviewed with the patient included but not limited to bleeding, infection, recurrence of symptoms, numbness, pain, scarring, bowel or bile duct injury or leak and the patient wishes to proceed. He will need cardiac clearance. Arrangements were made for surgery once the above has been undertaken. All questions answered. Coding Level of Care Code New Pt Level 5 (72059) Diagnoses Recurrent biliary colic K80.50
[2024-05-08 08:35] VITALS: BP 187/75; PULSE 84; BMI 20.1
== END 2024-05-08 08:32 | disposition home or self-care (01) ==
PROVIDERS: PCP Internal Medicine Medical Oncology; Visit Provider Surgery
DX: K80.50 Calculus of bile duct without cholangitis or cholecystitis without obstruction (principal)
CPT/HCPCS: 99204

== ENCOUNTER → 2024-05-08 08:09 | Outpatient (BNVA) | payer MEDICARE, MEDICAID, SELFPAY | PROVIDERS: PCP Internal Medicine Medical Oncology; Visit Provider Surgery | DX: K80.50 Calculus of bile duct without cholangitis or cholecystitis without obstruction (principal) | CPT/HCPCS: 99202 ==

== ENCOUNTER 2024-05-12 13:01 | Outpatient (AMB) | payer MEDICARE, MEDICAID, SELFPAY ==
--- NOTE | 2024-05-12 13:13 | MHC.OFFVIS ---
Vital Signs 05/12/24 13:14 Height 5 ft 5 in Weight 127 lb 6.835 oz BMI 21.2 BP 130/52 L Blood Pressure Location Lt brachial Position Sitting Pulse 70 Pulse Source Monitor Intake Visit Reasons: pre op gall bladder per DC Safety Deposit Boxes Custodian Required: No Allergies No Known Allergies [No Known Allergies*] Allergy (Verified 05/12/24 13:15) Medication List - Last Reconciled 05/12/24 by Yeimi Ruelas NP-C amlodipine 10 mg PO DAILY 30 days aspirin 81 mg PO DAILY atorvastatin 80 mg PO BEDTIME clopidogrel 75 mg PO DAILY glyburide 10 mg PO DAILY@0900 lisinopril 5 mg PO DAILY tamsulosin (Flomax) 0.4 mg PO BEDTIME 30 days HPI HPI pre op gall bladder per DC: Details: Antolin is an 83-year-old male past medical history of hypertension, hyperlipidemia, diabetes, peripheral vascular disease, COPD, smoking who had NSTEMI 04/2023 and underwent cardiac catheterization showing severe 2 vessel CAD and had PCI who now presents for preop cardiovascular clearance for cholecystectomy. Today he reports he had an issue with abdominal discomfort and was told he has gallstones. He has seen Dr. Garcia and is planning a laparoscopic cholecystectomy in the near future. He is currently pain-free. He has had no issues with chest discomfort at rest or with activity. He has no shortness of breath, PND, orthopnea or edema. No lightheadedness, presyncope, syncope, falls. He tolerates normal ADLs and housework without any concerning symptoms. He was able to walk from the parking lot into this office without symptoms. Taking all meds as directed. No bleeding issues reported [facility] Medical History Angina pectoris, unstable Hyperlipidemia CAD (coronary artery disease) Acute cholecystitis Nausea Peripheral arterial disease TIA (transient ischemic attack) COPD (chronic obstructive pulmonary disease) Hearing loss Elevated cholesterol HTN (hypertension) Staghorn calculus Nephrolithiasis Enlarged prostate Diabetes mellitus, type II Renal cysts, acquired, bilateral History of kidney stones Rotator cuff impingement syndrome Surgical History History of left-sided carotid endarterectomy Hx of cataract surgery Hx of lithotripsy History of surgery Social History Household Members: None Household Members Other:: 0 Housing: House Are you a primary nonfarm animal caretaker to a significant other at home: No Do you presently have visiting nurse or other home services: No Patient Tobacco Use Status: Never used Tobacco Tobacco use type: Cigarette Cigarette Packs Per Day: 1 Cigarettes Per Day: 20.0 Years Smoked: 60 e-Cigarette/Vaping Use: Never Used Advance Directives Date on File: 09/29/22 service: Yes Current occupational status: employed Review of Systems Const All systems reviewed & are unremarkable except as noted in HPI and below ENT Denies dizziness Card Denies chest pain, Denies chest pain at rest, Denies chest pain with activity, Denies rapid heart rate, Denies pedal edema, Denies edema, Denies leg edema, Denies lightheadedness, Denies palpitations, Denies dyspnea, Denies dyspnea on exertion and Denies orthopnea Resp Denies cough, Denies dyspnea and Denies dyspnea on exertion GI Denies hematochezia and Denies change in stool character Musc Denies abnormal gait, Denies limited range of motion, Denies muscle cramps, Denies muscle weakness, Denies numbness, Denies radiating pain into limb, Denies stiffness and Denies tingling Neuro Denies abnormal gait, Denies dizziness, Denies numbness and Denies tingling Endo Denies palpitations Physical Exam Vital Signs: Last Vital Signs Pulse 70 05/12/24 13:14 BP 130/52 L 05/12/24 13:14 BMI result Body Mass Index 21.2 Const General: cooperative, healthy appearing, comfortable and no acute distress Orientation/consciousness: patient oriented x3 Neck Neck: Yes normal visual inspection and Yes no JVD Chest Chest palpation & inspection: normal inspection of the chest Resp Effort & Inspection: normal respiratory effort Auscultation: clear to auscultation bilaterally, no rales, no rhonchi and no wheezes Cardio Jugular venous distension: no JVD Rate: regular rate Rhythm: regular rhythm Heart sounds: S1 normal heart sound present, S2 normal heart sound present, no murmurs and no rubs Neuro General: patient oriented x3 Extrem General: Yes normal to inspection, No no pedal edema and No calf tenderness Psych Appearance: grossly normal Mental Status: mental status grossly normal Speech and movement: Normal speech and movement present Office Procedures EKG Details: Today, read by me, normal sinus rhythm, right bundle branch block, left anterior fascicular block, minimal voltage criteria for LVH, small septal Q-wave, rate 70, QTC 438 milliseconds, no significant change from prior EKG. [id number], Complete Assessment & Plan Assessment & Plan (1) Non-ST elevation PA (NSTEMI): Code(s): I21.4 - Non-ST elevation (NSTEMI) myocardial infarction Category: Medical Plan: Patient presented to [facility] on 05/22/2023 with chest discomfort. He ruled in for ACS and was started on appropriate medications. Echocardiogram showed EF 60-65%, basal inferior lateral and anterior lateral hypokinesis, circumflex territory. He was transferred to [facility] and underwent cardiac catheterization on 05/25/2023 showing severe two-vessel CAD. He had stents placed to the proximal left circumflex and to the proximal RCA. He was admitted in September 2023 with shortness of breath and chest heaviness. He ruled out for ACS. No recurrent chest discomfort since that time. Initially he was on metoprolol but stopped it due to possible GI side effects. He is taking aspirin, indefinitely, Plavix until 1 year post stents and then it can be stopped. He is on high-dose atorvastatin with ideal LDL goal less than 70. Labs done 02/14/2024 showed LDL 38. Labs done 05/04/2024 show ALT 182, AST 67. This elevation is likely related to his gallstones. Will continue statin at this time. Blood pressure today 130/52. It has been elevated on prior checks. Will retry metoprolol at lower dose as this med will be cardio protective for him. Signs and symptoms of angina reviewed. Cardiology follow-up in 4 months, sooner if needed (2) CAD (coronary artery disease): Code(s): I25.10 - Atherosclerotic heart disease of [place] coronary artery without angina pectoris Category: Medical Qualifiers: Coronary Disease-Associated Artery/Lesion type: [place] artery [place] vs. transplanted heart: [place] heart Associated angina: unspecified whether angina present Qualified Code(s): I25.10 - Atherosclerotic heart disease of [place] coronary artery without angina pectoris Plan: As above (3) S/P cardiac cath: Comment: 05/25/2023, lad proximal 60% stenosis, mid 50% stenosis, D1 70% stenosis, left circumflex proximal 90% stenosis, angioplasty and ALVAREZ placed with residual 0% stenosis, OM1 50% stenosis RCA proximal 90% stenosis, angioplasty and ALVAREZ placed with residual 0% stenosis Code(s): Z98.890 - Other specified postprocedural states Category: Surgical Plan: As above (4) Stented coronary artery: Code(s): Z95.5 - Presence of coronary angioplasty implant and graft Category: Surgical Plan: ALVAREZ to the left circumflex and ALVAREZ to the RCA (5) Hyperlipidemia: Code(s): E78.5 - Hyperlipidemia, unspecified Category: Medical Qualifiers: Hyperlipidemia type: unspecified Qualified Code(s): E78.5 - Hyperlipidemia, unspecified Plan: [place] LDL goal less than 70. Currently well controlled. Continue atorvastatin 80 mg daily. (6) HTN (hypertension): Code(s): I10 - Essential (primary) hypertension Category: Medical Qualifiers: Hypertension type: primary hypertension Qualified Code(s): I10 - Essential (primary) hypertension Plan: As above, starting metoprolol XL 25 mg daily. Continue amlodipine 10 mg daily. Continue lisinopril at 5 mg daily. He did have more elevated potassium when on higher dose lisinopril not long ago. Labs done 05/04/2024 shows potassium 4.9, creatinine 1.23. (7) Preoperative cardiovascular examination: Code(s): Z01.810 - Encounter for preprocedural cardiovascular examination Category: Medical Plan: Preop for laparoscopic cholecystectomy with Dr. Garcia. No date yet. He can proceed with intermediate cardiac risk. Patient is hoping to have it done before 05/24/2024. Continue aspirin if able. Plavix can be stopped 5 days prior to his procedure or stopped indefinitely on 05/25/2024 as it is 1 year post stent. If aspirin needs to be held then it can be held as directed by the surgeon and restarted as soon as cleared to do so. Continue atorvastatin, metoprolol, lisinopril and amlodipine. Call/consult Cardiology if needed. Plan Time spent on chart review, documentation, interview and assessment Medications: New metoprolol succinate ER 25 mg PO DAILY 30 tabs 5RF Coding Level of Care Code Est Pt Level 4 (93988) Complex EM visit Add On G2211 Diagnoses Non-ST elevation PA (NSTEMI) I21.4 Coronary artery disease involving [place] coronary artery of [place] heart, unspecified whether angina present I25.10 Coronary Disease-Associated Artery/Lesion type: [place] artery [place] vs. transplanted heart: [place] heart Associated angina: unspecified whether angina present S/P cardiac cath Z98.890 Stented coronary artery Z95.5 Hyperlipidemia, unspecified hyperlipidemia type E78.5 Hyperlipidemia type: unspecified Primary hypertension I10 Hypertension type: primary hypertension Preoperative cardiovascular examination Z01.810 CPT Codes EKG - CPT: 70204-[id number], Complete ([id number]) Time Spent (min) 36
[2024-05-12 13:14] VITALS: BP 130/52; PULSE 70; BMI 21.2
== END 2024-05-12 13:47 | disposition home or self-care (01) ==
PROVIDERS: PCP Internal Medicine Medical Oncology; Visit Provider Nurse Practitioner Family
DX: I21.4 Non-ST elevation (NSTEMI) myocardial infarction (principal); I25.10 Atherosclerotic heart disease of native coronary artery without angina pectoris; Z98.890 Other specified postprocedural states; Z95.5 Presence of coronary angioplasty implant and graft; E78.5 Hyperlipidemia, unspecified; I10 Essential (primary) hypertension; Z01.810 Encounter for preprocedural cardiovascular examination
CPT/HCPCS: 93010; 99214; G2211

== ENCOUNTER → 2024-05-12 13:01 | Outpatient (BNVA) | payer MEDICARE, MEDICAID, SELFPAY | PROVIDERS: PCP Internal Medicine Medical Oncology; Visit Provider Nurse Practitioner Family | DX: Z01.810 Encounter for preprocedural cardiovascular examination (principal); I25.2 Old myocardial infarction; I25.10 Atherosclerotic heart disease of native coronary artery without angina pectoris; I10 Essential (primary) hypertension; E78.5 Hyperlipidemia, unspecified; Z95.5 Presence of coronary angioplasty implant and graft; Z98.890 Other specified postprocedural states | CPT/HCPCS: 93005; 99212 ==

== ENCOUNTER 2024-05-18 14:09 | Outpatient (REF) | payer MEDICARE, MEDICAID, SELFPAY | END 2024-05-18 14:10 | disposition home or self-care (01) | LOC: HO.US 14:09 | PROVIDERS: PCP Internal Medicine Medical Oncology; Visit Provider Urology | DX: N40.0 Benign prostatic hyperplasia without lower urinary tract symptoms (principal) | CPT/HCPCS: 76857 ==

== ENCOUNTER 2024-05-23 09:46 | Outpatient (AMB) | payer MEDICARE, MEDICAID, SELFPAY ==
--- NOTE | 2024-05-23 09:52 | A.OFFVIS_ITS ---
Intake Visit Reasons: cysto/US(set) Intake Note: Patient is present for Cystoscopy Urology Medication:TAMSULOSIN Antibiotic Allergy:NONE Blood Thinner:ASPIRIN Lot:[id number] Exp:04/03/27 [employer] Draftsperson Required: No Allergies No Known Allergies [No Known Allergies*] Allergy (Verified 05/23/24 09:54) HPI Comments Details: Antolin is a pleasant male. He is a patient of Dr. Bustillos. He is seen for the following urologic conditions - renal cysts - lower urinary tract symptoms - nephrolithiasis Here for cystoscopy Frequent urination Failed tamsulosin Bladder ultrasound 30 cc prostate Cystoscopy with median lobe and tight bladder neck Recommend TURP Diabetic Lower urinary tract symptoms Bladder ultrasound 50 cc residual, 30 cc prostate with calcifications Nephrolithiasis Renal imaging with large stones on left side Bilateral cysts CT angiogram with 2 cm stone left renal pelvis - CT 06/22 oz 2 cm stone within left renal pelvis - 03/22 renal ultrasound 4 mm stone bilateral Intervention - 10/20 left USR Composition - 10/20 calcium oxalate monohydrate 80% Did not tolerate potassium citrate On vitamin B6 PFSH Medical History (Updated 05/17/24 @ 09:48 by Charo Zhang RN) NSTEMI (non-ST elevated myocardial infarction) Nausea Acute cholecystitis Hyperlipidemia CAD (coronary artery disease) Peripheral arterial disease TIA (transient ischemic attack) COPD (chronic obstructive pulmonary disease) Hearing loss Elevated cholesterol HTN (hypertension) Staghorn calculus Nephrolithiasis Enlarged prostate Diabetes mellitus, type II Renal cysts, acquired, bilateral History of kidney stones Rotator cuff impingement syndrome Surgical History (Updated 05/17/24 @ 09:45 by Charo Zhang RN) Hx of cardiac catheterization Hx of cystoscopy History of left-sided carotid endarterectomy Hx of cataract surgery Hx of lithotripsy History of surgery Social History (Updated 05/17/24 @ 09:47 by Charo Zhang RN) Household Members: None Household Members Other:: 0 Housing: House Housing Other:: apt. in duplex Are you a primary career development manager to a significant other at home: No Do you presently have visiting nurse or other home services: No Patient Tobacco Use Status: Current everyday Tobacco user Tobacco use type: Cigarette Cigarette Packs Per Day: 1 Cigarettes Per Day: 20.0 Years Smoked: 60 e-Cigarette/Vaping Use: Never Used Advance Directives Date on File: 09/29/22 service: Yes Current occupational status: employed Review of Systems Const Denies chills and Denies fever(s) Card Reports no additional complaints and Denies syncope Resp Denies cough GI Denies abdominal pain and Denies heartburn Reports as per HPI and Denies change in libido Neuro Denies syncope Psych Denies change in libido Endo Denies change in libido Physical Exam Const General: cooperative, healthy appearing, comfortable and no acute distress Orientation/consciousness: patient oriented x3 HEENT Face and sinus: Yes normal facial exam Mouth: moist mucous membranes Neck Neck: Yes normal visual inspection, Yes full ROM and Yes trachea midline Chest Chest palpation & inspection: normal inspection of the chest Resp Effort & Inspection: normal respiratory effort, able to speak in complete sentences and no respiratory distress GI Inspection: Yes normal to inspection Back/Spine/Pelvis Cervical Spine: normal cervical lordosis Thoracic/Lumbar Spine: thoracic and lumbar spine normal to inspection Skin General skin exam: no rashes or lesions noted Neuro General: patient oriented x3, gait normal, tone normal and moves all extremities Extrem General: Yes normal to inspection and Yes capillary refill normal Office Procedures Cystoscopy Consent Discussed risk and benefit or proposed procedure with the patient. Information consent for procedure given to the patient. Discussed technical aspects, risks, benefits and alternatives in full. Addressed all of the patient's questions and concerns regarding the procedure. The patient demonstrated knowledge and understanding. They wish to proceed with this procedure. Preparation The patient was prepped in the usual manner. A black and white printer operator was present and in the room. Genitalia was prepped with betadine solution in a sterile manner. Lidocaine Jelly 2% was placed into the urethra and 16Fr flexible Olympus cystoscope was inserted into the meatus after adequate lubrication. Procedure Cystoscopy performed using a disposable Urovue digital 16 Lebanese cystoscope. Meatus circumcised Urethra anterior and posterior urethra normal Prostatic Urethra prominent median lobe with tight bladder neck Bladder examination with retroflexion of cystoscope Bladder Orifices normal shape and position Bladder Capacity normal Trabeculations grade 1 Cellule Formation - Diverticulum Formation - Mucosal Erythema - Bladder Tumor - [id number] DISPOSABLE SCOPE URO-G FLEXIBLE SCOPE Procedure code (CPT) selection complete Office Meds lidocaine HCl 2 % mucosal jelly in applicator Performing Provider: Les Alcantar MD Performing [facility] [place] [facility] [place] Administered by: Les Alcantar MD on 05/23/24 10:44 Dose Route Admin Location Dispensed Lot Number Expiration Date NDC Mannequin Decorator 10 mL intra-urethral 10 mL nitrofurantoin monohydrate/macrocrystals 100 mg capsule Performing Provider: Les Alcantar MD Performing Location: [facility] [place] [facility] [place] Administered by: Les Alcantar MD on 05/23/24 10:44 Dose Route Admin Location Dispensed Lot Number Expiration Date NDC Mannequin Decorator 100 mg PO 1 cap Results AMB Urinalysis, Automated UA Leukoctes 0 Panfilo/uL Last Edit by MYRA Jones on 05/23/24 10:03 UA Nitrite Negative Last Edit by MYRA Jones on 05/23/24 10:03 UA Urobilinogen 0.2 mg/dL Last Edit by MYRA Jones on 05/23/24 10:0 3 UA Protein 30 mg/dL Last Edit by MYRA Jones on 05/23/24 10:03 UA pH 6.0 Last Edit by MYRA Jones on 05/23/24 10:03 UA Blood 0 Beka/uL Last Edit by MYRA Jones on 05/23/24 10:03 UA Specific [place] 1.025 Last Edit by MYRA Jones on 05/23/24 10: 03 UA Ketone Negative Last Edit by MYRA Jones on 05/23/24 10:03 UA Bilirubin 0 mg/dL Last Edit by MYRA Jones on 05/23/24 10:03 UA Glucose 0 mg/dL Last Edit by MYRA Jones on 05/23/24 10:03 Results Reviewed Results Reviewed: Laboratory Last Values Urine pH (Auto) 6.0 05/23/24 10:02 Specific [place] (Auto) 1.025 05/23/24 10:02 Urine Protein (Auto) 30 mg/dL 05/23/24 10:02 Glucose (UA)(Auto) 0 mg/dL 05/23/24 10:02 Urine Ketones (Auto) Negative 05/23/24 10:02 Urine Blood (Auto) 0 Beka/uL 05/23/24 10:02 Urine Nitrite (Auto) Negative 05/23/24 10:02 Urine Bilirubin (Auto) 0 mg/dL 05/23/24 10:02 Urine Urobilinogen (Auto) 0.2 mg/dL 05/23/24 10:02 Leukocyte Esterase (Auto) 0 Panfilo/uL 05/23/24 10:02 Assessment & Plan Assessment & Plan (1) Enlarged prostate: Code(s): N40.0 - Benign prostatic hyperplasia without lower urinary tract symptoms Category: Medical Plan We discussed the nature of the decision and reasonable options for performing a prostate intervention. Interventions include TURP, GreenLight laser enucleation of the prostate, GreenLight laser ablation of the prostate, transurethral incision of the prostate, and I-Tend prostate procedure. Options such as medical therapy were discussed. The relative uncertainties and benefits related to each alternate procedure were adequately discussed. General surgical risks including, but not limited to, pain, bleeding, infection, myocardial infarction, pulmonary embolus, deep vein thrombosis and cerebrovascular accident which may result in further hospitalization were discussed. Full disclosure of the procedure as well as all major risks, benefits and complications were discussed including but not limited to damage to the urethra or bladder neck, recurrent BPH, retrograde ejaculation, bladder infection, urge, de lainey frequency, incomplete emptying, dysuria, remote chance of erectile dysfunction, epididymitis, and meatal stenosis. The success rate of the procedure was discussed. Success of the procedure in the short-term does not necessarily guarantee that long-term success will be maintained. Suitable follow up will need to be maintained. The patient showed understanding of discussion. An opportunity was provided for questions to be answered and wishes to proceed with the following procedure. - TURP plasma button Orders: Orders AMB Cystoscopy Today N40.0 - Benign prostatic hyperplasia without lower urinary tract symptoms AMB Urinalysis Automated Today Z13.9 - Encounter for screening, unspecified Medications: New nitrofurantoin monohyd/m-cryst 100 mg 100 mg PO ONCE 1 cap 0RF N40.0 - Benign prostatic hyperplasia without lower urinary tract symptoms lidocaine HCl 2% 10 mL intra-urethral ONCE 10 mL 0RF N40.0 - Benign prostatic hyperplasia without lower urinary tract symptoms Patient Instructions: Imaging studies, laboratory and physical exam results were discussed and reviewed in detail. No major barriers to patient understanding were identified. An opportunity to ask questions regarding the treatment plan was provided. All questions were answered. The patient expressed understanding and agreement with the above treatment plan. The patient is aware they should contact our office by phone for worsening of their current condition or the appearance of new urologic symptoms. Compliance is encouraged with any medications and followup testing that is ordered. It is a privilege to participate in the urologic care of your patient. If you have any questions or concerns regarding treatment for the above conditions, or other urologic issues, please do not hesitate to contact me. The office telephone contact is [phone]. This note is constructed using voice recognition software. While every effort has been made to ensure accuracy bathhouse keeper errors may have been included. Yours sincerely, Dr Les Alcantar MD, [facility] - Urology Providers of Expert, Compassionate Care for the Genitourinary System Coding Level of Care Code Est Pt Level 4 (46990) Diagnoses Enlarged prostate N40.0 CPT Codes Cystoscopy - CPT: [id number] ([id number])
== END 2024-05-23 10:51 | disposition home or self-care (01) ==
PROVIDERS: PCP Internal Medicine Medical Oncology; Visit Provider Urology
DX: N40.0 Benign prostatic hyperplasia without lower urinary tract symptoms (principal); Z13.9 Encounter for screening, unspecified
CPT/HCPCS: 52000; 99214

== ENCOUNTER → 2024-05-23 09:46 | Outpatient (BNVA) | payer MEDICARE, MEDICAID, SELFPAY | PROVIDERS: PCP Internal Medicine Medical Oncology; Visit Provider Urology | DX: N40.0 Benign prostatic hyperplasia without lower urinary tract symptoms (principal); N28.1 Cyst of kidney, acquired; N20.0 Calculus of kidney | CPT/HCPCS: 52000; 81003; 99212 ==

== ENCOUNTER 2024-05-26 06:53 | Day surgery (SDC) | payer MEDICARE, MEDICAID, SELFPAY ==
[2024-05-18 09:13] VITALS: BMI 21.1
--- NOTE | 2024-05-18 14:09 | HO.ANESPROP2 ---
Documented by User: Edel Mitchell NP 05/25/24 09:07 HPI - Anesthesia Eval Consult details Narrative: 84yo M for Cholecystectomy Laparoscopic, possible open Cardiac optimized Follows [facility] [place] Cardiology for hypertension, hyperlipidemia, diabetes, peripheral vascular disease, COPD, smoking who had NSTEMI 04/2023 and underwent cardiac catheterization showing severe 2 vessel CAD and had PCI DNR [facility] Active Problems Active Problems: All Active Problems Recurrent biliary colic (Acute) Breathlessness on exertion (Acute) Preoperative cardiovascular examination (Acute) Hospital discharge follow-up (Acute) Stented coronary artery (Acute) S/P cardiac cath (Acute) Non-ST elevation [place] (NSTEMI) (Acute) Calcium oxalate kidney stones (Acute) Status post cystoscopy with ureteral stent placement (Acute) Acute UTI (Acute) Nausea (Acute) Enlarged prostate (Acute) Past Medical History Medical History (Updated 05/17/24 @ 09:48 by Charo Zhang RN) NSTEMI (non-ST elevated myocardial infarction) Nausea Acute cholecystitis Hyperlipidemia CAD (coronary artery disease) Peripheral arterial disease TIA (transient ischemic attack) COPD (chronic obstructive pulmonary disease) Hearing loss Elevated cholesterol HTN (hypertension) Staghorn calculus Nephrolithiasis Enlarged prostate Diabetes mellitus, type II Renal cysts, acquired, bilateral History of kidney stones Rotator cuff impingement syndrome Family History Family history of problems with anesthesia: Yes Surgical History Surgical History (Updated 05/17/24 @ 09:45 by Charo Zhang RN) Hx of cardiac catheterization Hx of cystoscopy History of left-sided carotid endarterectomy Hx of cataract surgery Hx of lithotripsy History of surgery History of Problems with Anesthesia: No Social History Social History (Updated 05/17/24 @ 09:47 by Charo Zhang RN) Household Members: None Household Members Other:: 0 Housing: House Housing Other:: apt. in duplex Are you a primary career development manager to a significant other at home: No Do you presently have visiting nurse or other home services: No Patient Tobacco Use Status: Current everyday Tobacco user Tobacco use type: Cigarette Cigarette Packs Per Day: 1 Cigarettes Per Day: 20.0 Years Smoked: 60 e-Cigarette/Vaping Use: Never Used Use of substances other than those prescribed or required for medical reasons: No Have you been hit, kicked, punched, or otherwise hurt by someone within the past year? If so, by whom?: No Spiritual Healthcare Practices: none Yarsanism Healthcare Practices: [employer] Cultural Healthcare Practices: none Are you DNR?: Yes Advance Directives: Yes Advance Directives Information Provided: Yes Advance Directives on File: Yes Advance Directives Date on File: 09/29/22 Recently lost weight without trying: No Eating poorly because of decreased appetite: No Nutrition Risks: No Nutritional Risk Poor oral hygiene: No (upper & lower full denture) service: Yes Current occupational status: employed Meds Allergies Allergy/AdvReac Type Severity Reaction Status Date / Time No Known Allergies Allergy Verified 05/23/24 09:54 [No Known Allergies*] Home Medications ?Medication ?Instructions ?Recorded ?Confirmed ?Last Taken ?Type aspirin 81 mg tablet,delayed 81 mg PO DAILY 09/24/22 05/17/24 10/01/23 History release glyburide 5 mg tablet 10 mg PO DAILY@0900 09/14/23 05/17/24 10/01/23 History clopidogrel 75 mg tablet 75 mg PO DAILY 05/12/24 05/17/24 05/20/24 History Exam Height,Weight and Vital Signs: Height 5 ft 5 in Weight 57.606 kg Pertinent Lab Results Pertinent Lab Results: Laboratory Tests 05/04/24 09:42 WBC 11.6 H Hgb 12.1 L Hct 36.2 L Plt Count 328 Sodium 135 Potassium 4.9 Chloride 102 Carbon Dioxide 25 BUN 28 H Creatinine 1.23 Narrative Narrative: EKG 04/2024 normal sinus rhythm, right bundle branch block, left anterior fascicular block, minimal voltage criteria for LVH, small septal Q-wave, rate 70, QTC 438 milliseconds, no significant change from prior EKG S/P cardiac cath: Comment: 05/25/2023, lad proximal 60% stenosis, mid 50% stenosis, D1 70% stenosis, left circumflex proximal 90% stenosis, angioplasty and ALVAREZ placed with residual 0% stenosis, OM1 50% stenosis RCA proximal 90% stenosis, angioplasty and ALVAREZ placed with residual 0% stenosis ECHO 04/2023 Conclusions: - 1. Normal LV ejection fraction 60 65% with impaired relaxation filling pattern with basal inferolateral anterolateral hypokinesis in circumflex territory 2. Normal cardiac valvular Doppler 3. No gross pericardial effusion XR chest 2V 04/2025 IMPRESSION: COPD. No active superimposed disease. Assessment and Plan Assessment Anesthesia Assessment: Chart Reviewed Final Anesthetic Review Family History of Problems with Anesthesia: Yes History of Problems with Anesthesia: No Documented by User: Madhu Rich MD 05/26/24 07:09 [facility] Past Medical History Medical History (Updated 05/17/24 @ 09:48 by Charo Zhang RN) NSTEMI (non-ST elevated myocardial infarction) Nausea Acute cholecystitis Hyperlipidemia CAD (coronary artery disease) Peripheral arterial disease TIA (transient ischemic attack) COPD (chronic obstructive pulmonary disease) Hearing loss Elevated cholesterol HTN (hypertension) Staghorn calculus Nephrolithiasis Enlarged prostate Diabetes mellitus, type II Renal cysts, acquired, bilateral History of kidney stones Rotator cuff impingement syndrome Family History Family history of problems with anesthesia: No Surgical History Surgical History (Updated 05/17/24 @ 09:45 by Charo Zhang RN) Hx of cardiac catheterization Hx of cystoscopy History of left-sided carotid endarterectomy Hx of cataract surgery Hx of lithotripsy History of surgery Social History Social History (Updated 05/17/24 @ 09:47 by Charo Zhang RN) Household Members: None Household Members Other:: 0 Housing: House Housing Other:: apt. in duplex Are you a primary career development manager to a significant other at home: No Do you presently have visiting nurse or other home services: No Patient Tobacco Use Status: Current everyday Tobacco user Tobacco use type: Cigarette Cigarette Packs Per Day: 1 Cigarettes Per Day: 20.0 Years Smoked: 60 e-Cigarette/Vaping Use: Never Used Use of substances other than those prescribed or required for medical reasons: No Have you been hit, kicked, punched, or otherwise hurt by someone within the past year? If so, by whom?: No Spiritual Healthcare Practices: none Yarsanism Healthcare Practices: [employer] Cultural Healthcare Practices: none Are you DNR?: Yes Advance Directives: Yes Advance Directives Information Provided: Yes Advance Directives on File: Yes Advance Directives Date on File: 09/29/22 Recently lost weight without trying: No Eating poorly because of decreased appetite: No Nutrition Risks: No Nutritional Risk Poor oral hygiene: No (upper & lower full denture) service: Yes Current occupational status: employed Meds Allergies Allergy/AdvReac Type Severity Reaction Status Date / Time No Known Allergies Allergy Verified 05/23/24 09:54 [No Known Allergies*] Home Medications ?Medication ?Instructions ?Recorded ?Confirmed ?Last Taken ?Type aspirin 81 mg tablet,delayed 81 mg PO DAILY 09/24/22 05/17/24 10/01/23 History release glyburide 5 mg tablet 10 mg PO DAILY@0900 09/14/23 05/17/24 10/01/23 History clopidogrel 75 mg tablet 75 mg PO DAILY 05/12/24 05/17/24 05/20/24 History Exam Airway Mallampati Class: III TM Dist: >3cm Neck ROM: Limited Denture: Upper and Lower Assessment and Plan Assessment Anesthesia Assessment: Anesthesia Plan Discussed Final Anesthetic Review Family History of Problems with Anesthesia: No NPO: Yes ASA Class: III Final Preanesthetic Review: No Changes in Pt Med Stat, Meds/Allgs Chart Reviewed, Consent Obtained/Reviewed, Anes Risks/Benef Reviewed and DNR Form (If Appl.) Patient Risk: Intermediate Procedure Risk: Intermediate Anesthetic Plan Anesthetic Plan: GA Disposition: Standard PACU
--- NOTE | 2024-05-25 08:54 | MHC.SHP ---
Pre-Procedural Eval Section A - 24 Hr Update-Section A only Date of Service: 05/26/24 The patient is an INPATIENT: No Changes since office visit: No Cold of Flu in the past 2 weeks, No New Medical Problems, No Changes in Medication and No Patient answered all questions Section B - Complete if H&P > 30 days Chief Complaint: Calculus of bile duct without cholangitis or michelle Allergies: Allergies Allergy/AdvReac Type Severity Reaction Status Date / Time No Known Allergies Allergy Verified 05/23/24 09:54 [No Known Allergies*] Exam Surgical H&P Exam: Normal: HEENT, Normal: Heart, Normal: Lungs, Normal: Extremities, Normal: Abdomen, Normal: Skin and Normal: Neurological Plan I have reviewed the history and physical and performed a pertinent physical examination on my patient. No changes have occurred unless specified. Time Spent With Patient Time: Total time managing care of this patient today ____ minutes.
[2024-05-26] VITALS (8 sets, daily range): BP systolic 153–168; BP diastolic 44–54; PULSE 55–74; RESP 14–18; TEMP 36.1–36.6; O2SAT 95–99; BMI 19.6
[2024-05-26] MEDS: Lactated Ringers 1,000 ML 50 ML IVCONT (07:26)
--- NOTE | 2024-05-26 07:38 | PC.NURSE ---
poc 49 felt weakness. no blurry eye vision. d5 250ml per md bustos. improved blood sugar. still remains tired. no difference per patient.
[2024-05-26 07:39] LABS: Glucose, Whole Blood 49 mg/dL (60-115)
[2024-05-26 07:39] LABS: Glucose, Whole Blood 185 mg/dL (60-115)
[2024-05-26 08:40] LABS: Glucose, Whole Blood 180 mg/dL (60-115)
--- NOTE | 2024-05-26 08:49 | P.OP_ITS ---
Operative Note Operative Note Date of Service: 05/26/24 Narrative: Preoperative diagnosis: [] Symptomatic gallbladder Postop diagnosis: [] The same Procedure [] laparoscopic cholecystectomy Surgeon: [] Jose Packing Room Worker: [] Eddie Type of Anesthesia: [] General Indication for surgery: [] Gallbladder with omental adhesions to it. Moderately intrahepatic gallbladder. Findings: [] Patient brought to the operating room, placed on operative table supine position, after an adequate level of general anesthesia was induced, the patient's abdomen was prepped and draped in usual sterile fashion. Using a supraumbilical curvilinear incision, Soriano technique was used to insufflate abdominal cavity to 15 mm of CO2. Upper midline and right subcostal ports were placed under direct laparoscopic view, and the patient was placed in reverse Trendelenburg position, and tilted to the left. Findings were as noted above. Gallbladder was grasped using laparoscopic graspers and retracted superiorly and laterally. Soft omental adhesions were swept off the gallbladder and the hilum was approached. Cystic artery and cystic duct were each identified, circumferentially skeletonized, traced directly into the gallbladder, and critical view obtained. Each was clipped proximally x2, distally x1, and transected gallbladder which was moderately intrahepatic was then cauterized from the gallbladder fossa using Bovie. Specimen placed in an Endo-Catch bag, a retrieved through the umbilical port. Abdominal cavity was copiously irrigated and secured hemostasis. All ports removed under direct laparoscopic view. Wounds were closed in the following manner; umbilical wound is fascia reapproximated using interrupted 0 Vicryl sutures. Skin wounds were closed using subcuticular 4-0 Vicryl sutures followed by Steri-Strips and sterile dressings. Wounds were infiltrated 0.5% Marcaine at completion. Sponge, needle, and instrument counts reported correct. Patient tolerated the procedure well and emerged from anesthesia stable condition. EBL minimal
--- NOTE | 2024-05-26 10:10 | PC.NURSE ---
daughter in law picking up prescription. patient states son will check on him each hour.
== END 2024-05-26 10:05 | disposition home or self-care (01) ==
PROVIDERS: PCP Internal Medicine Medical Oncology; Visit Provider Surgery
PROC: 0FT44ZZ Resection of Gallbladder, Percutaneous Endoscopic Approach (ICD-10-PCS; CPT 47562; principal; 2024-05-26 08:30)
DX: K80.10 Calculus of gallbladder with chronic cholecystitis without obstruction (principal); K82.8 Other specified diseases of gallbladder; Q44.1 Other congenital malformations of gallbladder; I25.10 Atherosclerotic heart disease of native coronary artery without angina pectoris; Z95.5 Presence of coronary angioplasty implant and graft; I25.2 Old myocardial infarction; F17.210 Nicotine dependence, cigarettes, uncomplicated; I10 Essential (primary) hypertension; E11.9 Type 2 diabetes mellitus without complications; E78.00 Pure hypercholesterolemia, unspecified; J44.9 Chronic obstructive pulmonary disease, unspecified; I73.9 Peripheral vascular disease, unspecified; Z79.82 Long term (current) use of aspirin; Z79.84 Long term (current) use of oral hypoglycemic drugs; Z79.899 Other long term (current) drug therapy; Z86.73 Personal history of transient ischemic attack (TIA), and cerebral infarction without residual deficits; Z98.890 Other specified postprocedural states
CPT/HCPCS: 47562; 82947; 88304; J0131; J0690; J1100; J2003; J2405; J2704; J2795; J3010

== ENCOUNTER → 2024-05-26 06:53 | Outpatient (BNV) | payer MEDICARE, MEDICAID, SELFPAY | PROVIDERS: PCP Internal Medicine Medical Oncology; Visit Provider Surgery | DX: K80.50 Calculus of bile duct without cholangitis or cholecystitis without obstruction (principal) | CPT/HCPCS: 47562 ==

== ENCOUNTER 2024-06-06 09:18 | Outpatient (AMB) | payer MEDICARE, MEDICAID, SELFPAY ==
--- NOTE | 2024-06-06 09:36 | A.OFFVIS_ITS ---
Intake Visit Reasons: S/P lap michelle Intake Note: Patient here s/p laparoscopic cholecystectomy. Reports incisions healing well. Patient c/o: no longer taking rx pain meds. 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 Aside from initial incisional discomfort which has resolved, patient was now doing quite well. He is tolerating a diet. Having regular bowel habits. He is increasing his activity level [facility] Medical History (Updated 05/17/24 @ 09:48 by Charo Zhang RN) NSTEMI (non-ST elevated myocardial infarction) Nausea Acute cholecystitis Hyperlipidemia CAD (coronary artery disease) Peripheral arterial disease TIA (transient ischemic attack) COPD (chronic obstructive pulmonary disease) Hearing loss Elevated cholesterol HTN (hypertension) Staghorn calculus Nephrolithiasis Enlarged prostate Diabetes mellitus, type II Renal cysts, acquired, bilateral History of kidney stones Rotator cuff impingement syndrome Surgical History (Updated 06/06/24 @ 10:15 by Paulino Garcia MD) Hx of cardiac catheterization Hx of cystoscopy History of left-sided carotid endarterectomy Hx of cataract surgery Hx of lithotripsy History of surgery Social History (Updated 05/17/24 @ 09:47 by Charo Zhang RN) Household Members: None Household Members Other:: 0 Housing: House Housing Other:: apt. in duplex Are you a primary child care nurse to a significant other at home: No Do you presently have visiting nurse or other home services: No Patient Tobacco Use Status: Current everyday Tobacco user Tobacco use type: Cigarette Cigarette Packs Per Day: 1 Cigarettes Per Day: 20.0 Years Smoked: 60 e-Cigarette/Vaping Use: Never Used Advance Directives Date on File: 09/29/22 service: Yes Current occupational status: employed Physical Exam Eyes Other: Anicteric GI Other: Abdomen is soft. All wounds clean dry and intact well healed Assessment & Plan Assessment & Plan (1) Status post laparoscopic cholecystectomy: Code(s): Z90.49 - Acquired absence of other specified parts of digestive tract Category: Surgical (2) Postop check: Code(s): Z09 - Encounter for follow-up examination after completed treatment for conditions other than malignant neoplasm Category: Surgical Plan Patient was been given local instructions including avoiding strenuous activities next few weeks time and will otherwise follow-up p.r.n.. All questions answered Coding Level of Care Code Global (04705) Diagnoses Status post laparoscopic cholecystectomy Z90.49 Postop check Z09
== END 2024-06-06 09:50 | disposition home or self-care (01) ==
PROVIDERS: PCP Internal Medicine Medical Oncology; Visit Provider Surgery
DX: Z90.49 Acquired absence of other specified parts of digestive tract (principal); Z09 Encounter for follow-up examination after completed treatment for conditions other than malignant neoplasm
CPT/HCPCS: 99024

== ENCOUNTER → 2024-06-06 09:18 | Outpatient (BNVA) | payer MEDICARE, MEDICAID, SELFPAY | PROVIDERS: PCP Internal Medicine Medical Oncology; Visit Provider Surgery | DX: Z09 Encounter for follow-up examination after completed treatment for conditions other than malignant neoplasm (principal); Z90.49 Acquired absence of other specified parts of digestive tract | CPT/HCPCS: 99212 ==

== ENCOUNTER 2024-07-24 11:04 | Day surgery (SDC) | payer MEDICARE, MEDICAID, SELFPAY ==
[2024-07-20 12:01] VITALS: BMI 21.1
[2024-07-24 11:12] VITALS: BMI 21.2
[2024-07-24 11:25] VITALS: BP 163/51; PULSE 63; RESP 20; TEMP 36.4; O2SAT 98
[2024-07-24 11:41] LABS: Glucose, Whole Blood 131 mg/dL (60-115)
[2024-07-24] MEDS: Lactated Ringers 1,000 ML 50 ML IVCONT (11:45)
--- NOTE | 2024-07-24 11:53 | HO.ANESPROP2 ---
HPI - Anesthesia Eval Consult details Narrative: for cysto, TURP PMFSH Active Problems Active Problems: All Active Problems Postop check (Acute) Status post laparoscopic cholecystectomy (Acute) Recurrent biliary colic (Acute) Breathlessness on exertion (Acute) Preoperative cardiovascular examination (Acute) Hospital discharge follow-up (Acute) Stented coronary artery (Acute) S/P cardiac cath (Acute) Non-ST elevation AK (NSTEMI) (Acute) Calcium oxalate kidney stones (Acute) Status post cystoscopy with ureteral stent placement (Acute) Acute UTI (Acute) Nausea (Acute) Enlarged prostate (Acute) Past Medical History Medical History (Updated 05/17/24 @ 09:48 by Charo Zhang RN) NSTEMI (non-ST elevated myocardial infarction) Nausea Acute cholecystitis Hyperlipidemia CAD (coronary artery disease) Peripheral arterial disease TIA (transient ischemic attack) COPD (chronic obstructive pulmonary disease) Hearing loss Elevated cholesterol HTN (hypertension) Staghorn calculus Nephrolithiasis Enlarged prostate Diabetes mellitus, type II Renal cysts, acquired, bilateral History of kidney stones Rotator cuff impingement syndrome Narrative: cardiol consult note from 10/02/2023 reviewed. Echo report from 05/22 reviewed. Family History Family history of problems with anesthesia: No Surgical History Surgical History (Updated 06/06/24 @ 10:15 by Paulino Garcia MD) Hx of cardiac catheterization Hx of cystoscopy History of left-sided carotid endarterectomy Hx of cataract surgery Hx of lithotripsy History of surgery History of Problems with Anesthesia: No Social History Social History (Updated 05/17/24 @ 09:47 by Charo Zhang RN) Household Members: None Household Members Other:: 0 Housing: House Housing Other:: apt. in duplex Are you a primary intensive care ambulance paramedic to a significant other at home: No Do you presently have visiting nurse or other home services: No Patient Tobacco Use Status: Current everyday Tobacco user Tobacco use type: Cigarette Cigarette Packs Per Day: 1.5 Cigarettes Per Day: 30.0 Years Smoked: 60 e-Cigarette/Vaping Use: Never Used Use of substances other than those prescribed or required for medical reasons: No Are you DNR?: Yes Advance Directives: No Advance Directives Information Provided: Yes Advance Directives Date on File: 09/29/22 Nutrition Risks: No Nutritional Risk Poor oral hygiene: No service: Yes Current occupational status: employed Meds Allergies Allergy/AdvReac Type Severity Reaction Status Date / Time No Known Allergies Allergy Verified 06/06/24 09:40 [No Known Allergies*] Active Medications: Current Medications Lactated Ringer's (Lr) 1,000 mls @ 50 mls/hr IVCONT .Q20H NAYAN Last Admin: 07/24/24 11:45 Dose: 50 mls/hr Home Medications ?Medication ?Instructions ?Recorded ?Confirmed ?Last Taken ?Type aspirin 81 mg tablet,delayed 81 mg PO DAILY 09/24/22 06/06/24 07/23/24 History release glyburide 5 mg tablet 10 mg PO DAILY@0900 09/14/23 06/06/24 10/01/23 History Exam Height,Weight and Vital Signs: Height 5 ft 5 in Weight 57.9 kg Last Vital Signs Temp 97.6 F 07/24/24 11:25 Pulse 63 07/24/24 11:25 Resp 20 07/24/24 11:25 BP 163/51 H 07/24/24 11:25 Pulse Ox 98 07/24/24 11:25 O2 Del Method Room Air 07/24/24 11:25 Pertinent Lab Results Pertinent Lab Results: Laboratory Tests 07/24/24 11:37 POC Glucose 131 H Airway Mallampati Class: II TM Dist: <=3cm Neck ROM: Full Heart: oK. Has CAD. Lungs: ok Assessment and Plan Assessment Anesthesia Assessment: Anesthesia Plan Discussed and Chart Reviewed Final Anesthetic Review Family History of Problems with Anesthesia: No History of Problems with Anesthesia: No NPO: Yes ASA Class: IV Final Preanesthetic Review: No Changes in Pt Med Stat, Meds/Allgs Chart Reviewed, Consent Obtained/Reviewed and Anes Risks/Benef Reviewed Patient Risk: High Procedure Risk: Low Anesthetic Plan Anesthetic Plan: GA and Agree w/ Assess. and Plan Disposition: Standard PACU
--- NOTE | 2024-07-24 11:59 | MHC.SHP ---
Pre-Procedural Eval Section A - 24 Hr Update-Section A only Date of Service: 07/24/24 The patient is an INPATIENT: No Changes since office visit: No Cold of Flu in the past 2 weeks, No New Medical Problems, No Changes in Medication and No Patient answered all questions The patient has been examined within 24 hours of the surgical procedure. The History & Physical has been completed within 30 days and I have reviewed it.: Yes Section B - Complete if H&P > 30 days Chief Complaint: Bladder-neck obstruction Details of Present Illness: Bipolar bladder neck TURP Allergies: Allergies Allergy/AdvReac Type Severity Reaction Status Date / Time No Known Allergies Allergy Verified 06/06/24 09:40 [No Known Allergies*] Review of Systems Sugical H&P ROS: Negative: Constitution, Cardiovascular, Respiratory, Neurological, Psychiatric, Hem-Onc, Allergic/Immunologic, Gastrointestinal, Genitourinary, Musculoskeletal, Integumentary, Endocrine and Eyes/Ears/Nose/Throat Exam Surgical H&P Exam: Normal: HEENT, Normal: Heart, Normal: Lungs, Normal: Extremities, Normal: Abdomen, Normal: Skin and Normal: Neurological Plan Diagnosis/Plan: Unchanged I have reviewed the history and physical and performed a pertinent physical examination on my patient. No changes have occurred unless specified. Time Spent With Patient Time: Total time managing care of this patient today ____ minutes.
[2024-07-24] MEDS: ceFAZolin Sodium/Dextrose,Iso 2 GM/50 ML PIGGYBACK IV (12:08)
--- NOTE | 2024-07-24 12:49 | P.OP_ITS ---
Operative Note Operative Note Date of Service: 07/24/24 Narrative: PreOperative Diagnosis: Bladder outlet obstruction Post Operative Diagnosis: Bladder outlet obstruction Procedure: CPT 69269 - Transurethral electrosurgical prostate resection Surgeon: Dr Les Alcantar Anesthesia: General History of bladder outlet obstruction. Treated with alpha-jimmy and other medications. Still with symptoms. On cystoscopy in office has tight bladder neck. Recommendation for prostate procedure with plasma button Transurethral electrosurgical prostate incision versus resection. Size of prostate less than 40 cc. Risks and benefits have been discussed. Focus was placed on development of retrograde ejaculation which is a normal part of this procedure. Procedure: After informed consent was verified the patient was brought to the operating room and placed in a supine position. Anesthesia was administered per protocol. Patient was placed in modified dorsal lithotomy position and prepped and draped in a sterile fashion. Safety pause time-out was confirmed. Antibiotics have been given. A Twenty-four Panamanian cystoscope with visual obturator was inserted per urethra. No abnormalities were found of the anterior and bulbar urethra. The prostatic urethra shows tight bladder neck. The bladder was examined and both ureteric orifices were seen in their normal positions away from the area of interest. Bladder trabeculation grade 1/2. The visual obturator was removed and replaced with a plasma button resection loop. Using the plasma button incisions were made at the 5 and 7 o'clock position. The initial incision was made at the 7 o'clock position starting level with the bladder neck and in line with ureteric orifice on that side. The groove was extended distally to the area just proximal of the veru. This groove was deepened with multiple passes to define the lateral aspects of the median lobe area. The proximal portion of the groove was extended through the bladder neck and remained in line with the ureteric orifice on each side. The goal was to reveal prostate strands from trhe surgical capsule. Once clearly defined the groove was extended in the lateral direction. The 05:00 o'clock position groove was then created in a similar fashion. The intervening median lobe was then resected and enucleated tissue released into the bladder. The deep boundary of resection was defined by the prostate surgical capsule. In this case due to the smaller prostate size a decision was made not to proceed with further resection of the lateral lobes. At completion debris and pieces of prostate were removed from the bladder with irrigation. Both ureteric orifices were reviewed again in shown to be patent in away from any areas of energy damage. The apical area was reviewed and any stray mucosal ooze was controlled. A 22 Panamanian 30 cc balloon Castillo catheter was placed into the bladder using a flexible stylet. Clear efflux was obtained upon irrigation with a Valentín piston syringe. 30 cc was placed in the balloon and gentle traction was placed. A snap was used to hold tension on the catheter to control bleeding during patient moved and transported. A drainage bag was placed. Once transportation is complete to the PACU the snap will be removed. The patient tolerated the procedure well, he was extubated in the operating and transferred in a stable condition to the recovery area. Pathology: Prostate tissue Drains: Castillo catheter
[2024-07-24 13:00] VITALS: BP 131/57; PULSE 67; RESP 18; TEMP 36.3; O2SAT 100
[2024-07-24 13:05] VITALS: BP 110/56; PULSE 60; RESP 20; O2SAT 97
[2024-07-24 13:10] VITALS: BP 159/59; PULSE 60; RESP 20; O2SAT 97
[2024-07-24 13:15] VITALS: BP 164/57; PULSE 59; RESP 20; O2SAT 99
[2024-07-24 13:30] VITALS: BP 164/57; PULSE 59; RESP 18; TEMP 36.1; O2SAT 97
--- NOTE | 2024-07-24 14:04 | PC.NURSE ---
patient aware to f/u with dr. nogueira on wednesday at 0900 for catheter removal.
--- NOTE | 2024-07-24 15:12 | PC.NURSE ---
patient waited patiently for ride in discharge.
== END 2024-07-24 15:22 | disposition home or self-care (01) ==
PROVIDERS: PCP Internal Medicine Medical Oncology; Visit Provider Urology
PROC: 0VT08ZZ Resection of Prostate, Via Natural or Artificial Opening Endoscopic (ICD-10-PCS; CPT 52601; principal; 2024-07-24 12:50)
DX: N32.0 Bladder-neck obstruction (principal); N40.1 Benign prostatic hyperplasia with lower urinary tract symptoms; N40.3 Nodular prostate with lower urinary tract symptoms; R35.0 Frequency of micturition; N20.0 Calculus of kidney; N28.1 Cyst of kidney, acquired; I25.10 Atherosclerotic heart disease of native coronary artery without angina pectoris; Z95.5 Presence of coronary angioplasty implant and graft; I25.2 Old myocardial infarction; I10 Essential (primary) hypertension; E78.5 Hyperlipidemia, unspecified; J44.9 Chronic obstructive pulmonary disease, unspecified; E11.9 Type 2 diabetes mellitus without complications; I73.9 Peripheral vascular disease, unspecified; Z86.73 Personal history of transient ischemic attack (TIA), and cerebral infarction without residual deficits; Z79.82 Long term (current) use of aspirin; Z79.02 Long term (current) use of antithrombotics/antiplatelets; Z79.84 Long term (current) use of oral hypoglycemic drugs; Z79.899 Other long term (current) drug therapy; Z98.890 Other specified postprocedural states; Z66 Do not resuscitate; F17.210 Nicotine dependence, cigarettes, uncomplicated
CPT/HCPCS: 52601; 82947; 88305; A4649; J0690; J2003; J2704; J3010

== ENCOUNTER → 2024-07-24 11:04 | Outpatient (BNV) | payer MEDICARE, MEDICAID, SELFPAY | PROVIDERS: PCP Internal Medicine Medical Oncology; Visit Provider Urology | DX: N32.0 Bladder-neck obstruction (principal) | CPT/HCPCS: 52601 ==

== ENCOUNTER 2024-08-02 10:37 | Outpatient (AMB) | payer MEDICARE, MEDICAID, SELFPAY ==
--- NOTE | 2024-08-02 10:42 | MHC.OFFVIS ---
Intake Visit Reasons: TURP- follow up(SET) Intake Note: Patient is present for TURP follow up Urology Medication:TAMSULOSIN Antibiotic Allergy:NONE Blood Thinner:ASPIRIN Phosphatic Fertilizer Supervisor Required: No Allergies No Known Allergies [No Known Allergies*] Allergy (Verified 08/02/24 10:43) HPI Comments Details: Antolin is a pleasant male. He is a patient of Dr. Bustillos. He is seen for the following urologic conditions - renal cysts - lower urinary tract symptoms - nephrolithiasis Effective bladder emptying following TURP with plasma button Six-month follow-up renal ultrasound Diabetic Lower urinary tract symptoms Bladder ultrasound 50 cc residual, 30 cc prostate with calcifications 07/25 plasma button Nephrolithiasis Renal imaging with large stones on left side Bilateral cysts CT angiogram with 2 cm stone left renal pelvis - CT 06/22 oz 2 cm stone within left renal pelvis - 03/22 renal ultrasound 4 mm stone bilateral Intervention - 10/20 left USR Composition - 10/20 calcium oxalate monohydrate 80% Did not tolerate potassium citrate On vitamin B6 PFSH Medical History (Updated 08/02/24 @ 11:10 by Les Alcantar MD) Nephrolithiasis NSTEMI (non-ST elevated myocardial infarction) Nausea Acute cholecystitis Hyperlipidemia CAD (coronary artery disease) Peripheral arterial disease TIA (transient ischemic attack) COPD (chronic obstructive pulmonary disease) Hearing loss Elevated cholesterol HTN (hypertension) Staghorn calculus Enlarged prostate Diabetes mellitus, type II Renal cysts, acquired, bilateral History of kidney stones Rotator cuff impingement syndrome Surgical History Hx of cardiac catheterization Hx of cystoscopy History of left-sided carotid endarterectomy Hx of cataract surgery Hx of lithotripsy History of surgery Social History Household Members: None Household Members Other:: 0 Housing: House Housing Other:: apt. in duplex Are you a primary workforce investment act career manager to a significant other at home: No Do you presently have visiting nurse or other home services: No Patient Tobacco Use Status: Current everyday Tobacco user Tobacco use type: Cigarette Cigarette Packs Per Day: 1.5 Cigarettes Per Day: 30.0 Years Smoked: 60 e-Cigarette/Vaping Use: Never Used Advance Directives Date on File: 09/29/22 service: Yes Current occupational status: employed Review of Systems Const Denies chills and Denies fever(s) Card Reports no additional complaints and Denies syncope Resp Denies cough GI Denies abdominal pain and Denies heartburn Reports as per HPI and Denies change in libido Neuro Denies syncope Psych Denies change in libido Endo Denies change in libido Physical Exam Const General: cooperative, healthy appearing, comfortable and no acute distress Orientation/consciousness: patient oriented x3 HEENT Face and sinus: Yes normal facial exam Mouth: moist mucous membranes Neck Neck: Yes normal visual inspection, Yes full ROM and Yes trachea midline Chest Chest palpation & inspection: normal inspection of the chest Resp Effort & Inspection: normal respiratory effort, able to speak in complete sentences and no respiratory distress GI Inspection: Yes normal to inspection Back/Spine/Pelvis Cervical Spine: normal cervical lordosis Thoracic/Lumbar Spine: thoracic and lumbar spine normal to inspection Skin General skin exam: no rashes or lesions noted Neuro General: patient oriented x3, gait normal, tone normal and moves all extremities Extrem General: Yes normal to inspection and Yes capillary refill normal Assessment & Plan Assessment & Plan (1) BPH w urinary obs/LUTS: Code(s): N40.1 - Benign prostatic hyperplasia with lower urinary tract symptoms; N13.8 - Other obstructive and reflux uropathy Category: Medical (2) Nephrolithiasis: Code(s): N20.0 - Calculus of kidney Category: Medical Plan Six-month follow-up renal ultrasound and PVR Orders: Orders US renal BI 6 Months N20.0 - Calculus of kidney Patient Instructions: This note is constructed using voice recognition software. While every effort has been made to ensure accuracy farmer cash grain errors may have been included. Imaging studies, laboratory and physical exam results were discussed and reviewed in detail. No major barriers to patient understanding were identified. An opportunity to ask questions regarding the treatment plan was provided. All questions were answered. The patient expressed understanding and agreement with the above treatment plan. The patient is aware they should contact our office by phone for worsening of their current condition or the appearance of new urologic symptoms. Compliance is encouraged with any medications and followup testing that is ordered. It is a privilege to participate in the urologic care of your patient. If you have any questions or concerns regarding treatment for the above conditions, or other urologic issues, please do not hesitate to contact me. The office telephone contact is [phone]. Sincerely, Dr Les Alcantar MD, [facility] - Urology Compassionate Specialist Care for the Genitourinary System Coding Level of Care Code Est Pt Level 3 (45819) Diagnoses BPH w urinary obs/LUTS N40.1; N13.8 Nephrolithiasis N20.0
--- OUTSIDE RECORDS SUMMARY | 2024-08-02 12:39 | XMS_ITS ---
Author Organization Jemal Bustillos III, MD Address [address] [place] [address] [place] [address] Care Team Providers Care Safety Net Maker Name Role Phone Jemal Bustillos Primary Care Provider Allergies Allergen (clinical drug ingredient) Drug/Non Drug Allergy documented on EMR Reaction Allergy Type Onset Date Status No Known Drug Allergy Unknown Drug Allergy Active Results Component Value Reference Range Notes URINE DIP STICK Reviewed date:07/28/2024 09:18:49 AM Interpretation: Performing Lab: Notes/Report: SG 1.020 1.005 - 1.025 pH 5.0 5.0 - 9.0 ALLA 70+ Negative - NIT Negative Negative - PRO 100 Negative - Trace GLU Negative Negative - KET Negative Negative - UBG 0.2 0.1 - 1.8 SELINA Negative 0.2 - 1.3 BLD +++ Negative - REASON FOR VISIT Annual Exam Medications Medication SIG (Take, Route, Frequency, Duration) Notes Start Date End Date Status Clopidogrel Bisulfate 75 MG 1 tablet Orally Once a day Active Atorvastatin Calcium 20 MG 1 tablet Orally Once a day Active predniSONE 20 MG 1 tablet with food or milk Orally Once a day 09/21/2023 Active Albuterol Sulfate HFA 108 (90 Base) MCG/ACT 1 puff as needed Inhalation every 4 hrs 09/21/2023 Active Famotidine 20 MG 1 tablet at bedtime as needed Orally Once a day Active Aspirin Adult Low Dose 81 MG 1 tablet Orally Once a day Active Lisinopril 30 MG 1 tablet Orally Once a day 04/14/2023 Active Metoprolol Succinate ER 25 MG 1 tablet Orally Once a day 07/08/2023 Active Omeprazole 20 MG 1 capsule 30 minutes before morning meal Orally twice a day 07/23/2023 Active metFORMIN HCl 1000 MG TAKE 1 TABLET BY MOUTH TWICE A DAY FOR 30 DAYS Active Pioglitazone HCl 15 MG 1 tablet Orally Once a day 04/06/2024 Active Fluticasone Furoate 27.5 MCG/SPRAY 2 sprays (1 spray in each nostril) Nasally Once a day 06/07/2024 Active Meclizine HCl 25 MG 1 tablet as needed Orally every 12 hrs 06/27/2024 Active glyBURIDE 5 MG TAKE 2 TABLETS BY MOUTH EVERY MORNING Patient has Insurance PA approval from 07/05/2024- Active Tamsulosin HCl 0.4 MG Oral Active Loratadine 10 MG 1 tablet Orally Once a day Active Social History Tobacco Use: Social History Observation Description Date Details (start date - stop date) Current Smoker NA - NA Sex Assigned At : Social History Observation Description Sex Assigned At Male Tobacco Control (Standard) Question Answer Notes Tobacco use: Current smoker How often do you smoke cigarettes? Every day How many cigarettes a day do you smoke? 21-30 How soon after you wake up d o you smoke your first cigarette? 6-30 minutes Are you interested in quitting? Not ready to beth t Additional Findings: Tobacco user Heavy cigarett e smoker (20-39 cigs/day) AUDIT-C (Standard) Question Answer Notes Did you have a drink contain ing alcohol in the past year? Yes How often did you have six o r more drinks on one occasion in the past year? Less than monthly (1 point) How many drinks did you have on a typical day when you were drinking in the past year? 1 or 2 drinks (0 point) How often did you have a dri nk containing alcohol in the past year? Never (0 point) Points 1 Interpretation Negative Vital Signs Temperature 98.3 degrees Fahrenheit 07/28/19 25 Blood pressure systolic 136 mm Hg 07/28/19 25 Blood pressure diastolic 66 mm Hg 02/28/2 025 Heart Rate 71 /min 07/28/2024 Height 65 in 07/28/2024 Weight 125 lbs 07/28/2024 BMI 20.8 kg/m2 07/28/2024 Encounters Encounter Location Date Provider Diagnosis Jemal Bustillos III, MD [address] [place] [address] [place] [address] 07/28/2024 Jemal Bustillos Tobacco dependence F17.200 ; Type 2 diabetes mellitus without complications E11.9 ; Hyperlipidemia E78.5 ; Hearing loss, bilateral H91.93 ; GERD without esophagitis K21.9 ; Benign prostatic hyperplasia, unspecified whether lower urinary tract symptoms present N40.0 ; Left carotid artery stenosis I65.22 ; Arteriosclerotic coronary artery disease I25.10 ; Chronic obstructive pulmonary disease, unspecified J44.9 and Complex renal cyst N28.1 Assessments Encounter Date Diagnosis (ICD Code) Assessment Notes T reatment Notes Treatment Clinical Notes 07/28/2024 Tobacco dependence (ICD-10 - F17.200) He resumed smoking 10 cigarettes daily. I have counseled him at length today about smoking cessation program. 07/28/2024 Type 2 diabetes mellitus without complications (ICD-10 - E11.9) He has been continued on his current regimen without change. His glucose levels have been acceptable. He has been compliant with his treatment and diet. 07/28/2024 Hyperlipidemia (ICD- 10 - E78.5) His lipids are stable. A repeat fasting lipid profile will be done periodically. No change in his regimen was necessary today. 07/28/2024 Hearing loss, bilateral (ICD-10 - H91.93) There has been no change in his hearing. He did quite well over the telephone today. 07/28/2024 GERD without esophagitis (ICD-10 - K21.9) His reflux symptoms have been well controlled with medication. He has been sleeping through the night lately. 07/28/2024 Benign prostatic hyperplasia, unspecified whether lower urinary tract symptoms present (ICD-10 - N40.0) He rises from sleep 3 or 4 times a night to urinate. We have discussed lifestyle modification as a way to reduce nocturia. A prostate procedure has been scheduled by his urologist in the near future. 07/28/2024 Left carotid artery stenosis (ICD-10 - I65.22) He has had an endarterectomy and now has a good pulse in the neck. 07/28/2024 Arteriosclerotic coronary artery disease (ICD-10 - I25.10) He recently had an angioplasty of the right coronary artery and 2 stents put into the left system May 25, 2023 at [facility]. He says he is unable to tolerate the metoprolol as well as the Brilinta. He has had no angina since his last visit. 07/28/2024 Chronic obstructive pulmonary disease, unspecified (ICD-10 - J44.9) He is trying to stop smoking. He continues to consume 10 cigarettes daily. He is comfortable breathing room air. He has been compliant with his medications. 07/28/2024 Complex renal cyst (ICD-10 - N28.1) The cyst will be imaged periodically. Plan Of Treatment Medication Medication Name Sig Start Date Stop Date Notes Clopidogrel Bisulfate 75 MG 1 tablet Orally Once a day Atorvastatin Calcium 20 MG 1 tablet Orally Once a day predniSONE 20 MG 1 tablet with food o r milk Orally Once a day 09/21/2023 Albuterol Sulfate HFA 108 (90 Base) MCG/ACT 1 puff as needed Inhalation every 4 hrs 09/21/2023 Famotidine 20 MG 1 tablet at bedtime as needed Orally Once a day Aspirin Adult Low Dose 81 MG 1 tablet Orally Once a day Lisinopril 30 MG 1 tablet Orally Once a day 04/14/2023 Metoprolol Succinate ER 25 MG 1 tablet Orally Once a day 07/08/2023 Omeprazole 20 MG 1 capsule 30 minutes before morning meal Orally twice a day 07/23/2023 metFORMIN HCl 1000 MG TAKE 1 TABLET BY MOUTH TWICE A DAY FOR 30 DAYS Pioglitazone HCl 15 MG 1 tablet Orally O nce a day 04/06/2024 Fluticasone Furoate 27.5 MCG/SPRAY 2 sprays (1 spray in each nostril) Nasally Once a day 06/07/2024 Meclizine HCl 25 MG 1 tablet as needed Orally every 12 hrs 06/27/2024 glyBURIDE 5 MG TAKE 2 TABLETS BY MOUTH EVERY MORNING Patient has Insurance PA approval from 07/05/2024-05/30/2025 Tamsulosin HCl 0.4 MG Oral Loratadine 10 MG 1 tablet Orally Once a day Pending Test Test Name Order Date PROFILE, FASTING (COMPREHENSIVE METABOLI C) 07/28/2024 CBC WITH AUTO DIFF 07/28/2024 Lipid Panel 07/28/2024 Microalbumin, Random 07/28/2024 Hemoglobin A1c 07/28/2024 Next Appt Details Follow Up: 3 Months, Shy Clemens ason: OV, Routine check-up Provider Name:Jemal Narvaezrne, 10/25/2024 09:45:00 AM, [address] [facility] [address], [place], [address], Provider Name:Jemal Bustillos, 07/30/2025 09:30:00 AM, [address] [place] [address] [address], [place], [address], Progress Notes * VANESSAHortensia COLINKerenOB:1940 (84 yo M)Acc No.[id number]:07/28/2024 Progress Notes Patient:?VANESSAAntolin Gallegos Provider:?Jemal Bustillos MD :1940???Age:84 Y???Sex:Male Andriy e:07/28/2024 Address:[address] [place] [address], [place], [id number] Subjective: * Chief Complaints: * ???Annual Exam * HPI: ???Depression Screening:? last wed had surg on prostate [place] [facility],? now has noct x2. ?PHQ-9?Little interest or pleasure in doing things?Not at all ?Feeling down, depressed, or hopeless?Not at all ?Trouble falling or staying asleep, or sleeping too much?Not at all ?Feeling tired or having little energy?Several days ?Poor appetite or overeating?Not at all ?Feeling bad about yourself or that you are a failure, or have let yourself or your family down?Not at all ?Trouble concentrating on things, such as reading the newspaper or watching television?Not at all ?Moving or speaking so slowly that other people could have noticed; or the opposite, being so fidgety or restless that you have been moving around a lot more than usual?Not at all ?Thoughts that you would be better off or of hurting yourself in some way?Not at all ?Total Score?1 ?Interpretation?Minimal Depression ???COVID-19 Screening:?Questions?Have you had any new onset fever, chills, cough, congestion, sore throat, shortness of breath, muscle aches??No ???Fall Risk Screening:?Fall History?Have you had any falls with injury in the past year??Yes ?Have you had two or more falls in the past year??No ?Fall Risk Assessment:?One fall with injury in the past year ???SDOH Questions:?SDOH Questions?In the past year have you been worried about losing your housing??No ?In the past year have you or any family members you live with been unable to get any of the following when it was really needed? Check all that apply:?Decline to answer ???:? The patient, an 84-year-old male, had a surgery on his prostate last Wednesday due to it blocking his bladder. The surgery was performed at [facility]. Since the surgery, the patient has been feeling better each day and his urination frequency has decreased from 4-5 times a night to twice a night. He has not been prescribed any new medications or pain pills post-surgery. The patient also has diabetes which he reports as being stable. He has gained some weight which is now in the normal range. He has no chest pains and his breathing is fine. He has a small wound on his nose which is healing. He sleeps well, going into a light sleep for the first two or three hours, then into a deep sleep. He has a regular heartbeat and no belly troubles. * ROS:?General/Constitutional:?pain?only normal aches and pains.?Chills?denies.?Fatigue?admits.?Fever?denies.?ENT:?Decreased hearing?in both ears.?Respiratory:?Cough?non-productive.?Cardiovascular:?Chest pain with exertion?denies.?Dyspnea on exertion?denies.?Shortness of breath?with exertion.?Gastrointestinal:?Constipation?denies.?Decreased appetite?denies.?Diarrhea?denies.?Heartburn?denies.?Nausea?denies.?Rectal bleeding?denies.?Vomiting?denies.?Hematology:?bruising?denies.?petechiae?denies.?Swollen glands?none have been noted.?Genitourinary:?Frequent urination?twice a night.?Musculoskeletal:?Muscle aches?denies.?Painful joints?denies.?Sciatica?denies.?Weakness?denies.?Skin:?Itching?denies.?Rash?denies.?Skin lesion(s)?denies.?Neurologic:?Difficulty speaking?denies.?Dizziness?denies.?Headache?denies.?Low back pain?denies.?Psychiatric:?Depressed mood?which is mild.? * Medical History:? * Surgical History:?bilateral cataracts left carotid endarterectomy [facility], Dr. Alonso 09/2017Cystoscopy with left ureteral stent subsequently removed, ureterolithiasis 3Cardiac cath with 2 stent placements at [facility] holecystectomy TURP 07/2024 * Hospitalization/Major Diagno stic Procedure:?TIA 08/2017Hospitalized at [facility] for prostate surgery * Family History:?Father: dece ased 72 yrs, Diabetes, Heart failure, cancer, diagnosed with DM, Cancer.?Mother: alive 68 yrs, diagnosed with Cancer, DM.?Children: alive.?Son(s): alive.?2 brother(s) , 3 sister(s) . 3 son(s) - healthy. .? One brother is on dialysis. His 3 sons are healthy and well. His mother has a history of cancer and diabetes and schizophrenia. He is not aware of any other history of mental illness in his family. He is not aware of any family history of substance abuse or addictions other than tobacco usage and his mother's mental illness. He is tobacco dependent. * Social History:?Tobacco Use:?Tobacco Control (Standard)?Tobacco use:?Current smoker ?How often do you smoke cigarettes??Every day ?How many cigarettes a day do you smoke??21-30 ?How soon after you wake up do you smoke your first cigarette??6-30 minutes ?Are you interested in quitting??Not ready to quit ?Additional Findings: Tobacco user?Heavy cigarette smoker (20-39 cigs/day) ???Drugs/Alcohol:?Drugs?Have you used drugs other than those for medical reasons in the past 12 months??No ???Drug/Alcohol:?AUDIT-C (Standard)?Did you have a drink containing alcohol in the past year??Yes ?How often did you have six or more drinks on one occasion in the past year??Less than monthly (1 point) ?How many drinks did you have on a typical day when you were drinking in the past year??1 or 2 drinks (0 point) ?How often did you have a drink containing alcohol in the past year??Never (0 point) ?Points?1 ?Interpretation?Negative ???He was to Anamaria (Alicai) for 49 years and is now . They had three sons and 2 grandchildren. 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 He smoked cigarettes but does not drink alcohol or take drugs. He has no occupational exposures and no travel history. Smokin.5 packs per day Smoking: Patient smokes 15-20 cigarettes a day. * Medications:?TakingmetFORMIN HCl 1000 MG Tablet TAKE 1 TABLET BY MOUTH TWICE A DAY FOR 30 DAYS Aspirin Adult Low Dose 81 MG Tablet Delayed Release 1 tablet Orally Once a day Lisinopril 30 MG Tablet 1 tablet Orally Once a day Metoprolol Succinate ER 25 MG Tablet Extended Release 24 Hour 1 tablet Orally Once a day Omeprazole 20 MG Capsule Delayed Release 1 capsule 30 minutes before morning meal Orally twice a day Atorvastatin Calcium 20 MG Tablet 1 tablet Orally Once a day predniSONE 20 MG Tablet 1 tablet with food or milk Orally Once a day Albuterol Sulfate HFA 108 (90 Base) MCG/ACT Aerosol Solution 1 puff as needed Inhalation every 4 hrs Famotidine 20 MG Tablet 1 tablet at bedtime as needed Orally Once a day Clopidogrel Bisulfate 75 MG Tablet 1 tablet Orally Once a day Loratadine 10 MG Tablet 1 tablet Orally Once a day Tamsulosin HCl 0.4 MG Capsule Oral Pioglitazone HCl 15 MG Tablet 1 tablet Orally Once a day Fluticasone Furoate 27.5 MCG/SPRAY Suspension 2 sprays (1 spray in each nostril) Nasally Once a day Meclizine HCl 25 MG Tablet 1 tablet as needed Orally every 12 hrs glyBURIDE 5 MG Tablet TAKE 2 TABLETS BY MOUTH EVERY MORNING , Notes to Pharmacist: Patient has Insurance PA approval from 07/05/2024-05/30/2025Medication List reviewed and reconciled with the patientTaking metFORMIN HCl 1000 MG Tablet TAKE 1 TABLET BY MOUTH TWICE A DAY FOR 30 DAYS Taking Aspirin Adult Low Dose 81 MG Tablet Delayed Release 1 tablet Orally Once a day Taking Lisinopril 30 MG Tablet 1 tablet Orally Once a day Taking Metoprolol Succinate ER 25 MG Tablet Extended Release 24 Hour 1 tablet Orally Once a day Taking Omeprazole 20 MG Capsule Delayed Release 1 capsule 30 minutes before morning meal Orally twice a day Taking Atorvastatin Calcium 20 MG Tablet 1 tablet Orally Once a day Taking predniSONE 20 MG Tablet 1 tablet with food or milk Orally Once a day Taking Albuterol Sulfate HFA 108 (90 Base) MCG/ACT Aerosol Solution 1 puff as needed Inhalation every 4 hrs Taking Famotidine 20 MG Tablet 1 tablet at bedtime as needed Orally Once a day Taking Clopidogrel Bisulfate 75 MG Tablet 1 tablet Orally Once a day Taking Loratadine 10 MG Tablet 1 tablet Orally Once a day Taking Tamsulosin HCl 0.4 MG Capsule Oral Taking Pioglitazone HCl 15 MG Tablet 1 tablet Orally Once a day Taking Fluticasone Furoate 27.5 MCG/SPRAY Suspension 2 sprays (1 spray in each nostril) Nasally Once a day Taking Meclizine HCl 25 MG Tablet 1 tablet as needed Orally every 12 hrs Taking glyBURIDE 5 MG Tablet TAKE 2 TABLETS BY MOUTH EVERY MORNING , Notes to Pharmacist: Patient has Insurance PA approval from 07/05/2024-05/30/2025Medication List reviewed and reconciled with the patient * Allergies:?No Known Drug All ergyno[Allergies Verified] Objective: * Vitals:?Ht: 65, Wt:125, BMI: 20.8, BP:136/66, HR:71, Temp:98.3, Ht-cm: 165.1, Wt- k.7. * ???Past Orders: Lab:URINE DIP STICK * Collection Date 07/28/2024 07/05/2023 06/29/2022 Order Date 07/28/2024 07/05/2023 06/29/2022 SG 1.020 (Ref Range: 1.005 - 1.025) 1.015 (Ref Range: 1.005 - 1.025) 1.000 pH 5.0 (Ref Range: 5.0 - 9.0) 5.0 (Ref Range: 5.0 - 9.0) 5.0 ALLA 70+ (Ref Range: Negative -) Negative (Ref Range: Negative -) positive NIT Negative (Ref Range: Negative -) Negative (Ref Range: Negative -) negative PRO 100 (Ref Range: Negative - Trace) 15 (Ref Range: Negative - Trace) 30 GLU Negative (Ref Range: Negative -) 500 (Ref Range: Negative -) positive KET Negative (Ref Range: Negative -) Negative (Ref Range: Negative -) 5 UBG 0.2 (Ref Range: 0.1 - 1.8) 0.2 (Ref Range: 0.1 - 1.8) negative SELINA Negative (Ref Range: 0.2 - 1.3) Negative (Ref Range: 0.2 - 1.3) negative BLD +++ (Ref Range: Negative -) Negative (Ref Range: Negative -) postitive Menstrating NR N/A n/a * Lab:Glucose, Whole Blood * Collection Date 05/26/2024 05/26/2024 05/26/2024 Collection Time 08:36 AM 07:35 AM 07:21 AM Order Date 05/26/2024 05/26/2024 05/26/2024 Glucose, Whole Blood 180?H (Ref Range: 60-115 mg/dL) 185?H (Ref Range: 60-115 mg/dL) 49?LL (Ref Range: 60-115 mg/dL) * Lab:Pathology * Collection Date 05/26/2024 10/12/2022 09/28/2022 Collection Time 08:15 AM 09:45 AM 02:06 PM Order Date 05/26/2024 10/12/2022 09/28/2022 * Lab:UA ClnCatch+Micro w/rflx Cult * Collection Date 05/04/2024 10/21/2023 09/08/2023 Collection Time 09:42 AM 06:35 PM 04:00 PM Order Date 05/04/2024 10/21/2023 09/08/2023 Color Urine Yellow Yellow Yellow Appearance Urine Clear Cloudy Clear PH 5.0 (Ref Range: 5.0-9.0) 5.5 (Ref Range: 5.0-9.0) 5.0 (Ref Range: 5.0-9.0) Glucose Urine UA 250?A (Ref Range: Negative mg/dL) Negative (Ref Range: Negative mg/dL) Negative (Ref Range: Negative mg/dL) Urine Blood Negative (Ref Range: Negative) Negative (Ref Range: Negative) Negative (Ref Range: Negative) Specific [place] - Urine 1.015 (Ref Range: 1.005-1.025) 1.015 (Ref Range: 1.005-1.025) 1.015 (Ref Range: 1.005-1.025) Urine Protein 30 (1+)?A (Ref Range: Neg-Trace mg/dL) Trace (Ref Range: Neg-Trace mg/dL) 30 (1+)?A (Ref Range: Neg-Trace mg/dL) Urine Ketones Negative (Ref Range: Negative mg/dL) Negative (Ref Range: Negative mg/dL) Negative (Ref Range: Negative mg/dL) Nitrite Urine Negative (Ref Range: Negative) Negative (Ref Range: Negative) Negative (Ref Range: Negative) Leukocyte Esterase Urine Small (1+)?A (Ref Range: Negative) Trace?A (Ref Range: Negative) Negative (Ref Range: Negative) RBC Urine 0-2 (Ref Range: 0-2 /HPF) 0-2 (Ref Range: 0-2 /HPF) 0-2 (Ref Range: 0-2 /HPF) WBC Urine 11-20?A (Ref Range: 0-5 /HPF) 0-5 (Ref Range: 0-5 /HPF) 0-5 (Ref Range: 0-5 /HPF) Squamous Epithelial Cell Urine 0-2 (Ref Range: 0-2 /HPF) 0-2 (Ref Range: 0-2 /HPF) 0-2 (Ref Range: 0-2 /HPF) Bacteria Urine None Seen (Ref Range: None Seen) None Seen (Ref Range: None Seen) None Seen (Ref Range: None Seen) Hyaline Casts Urine 0-2 (Ref Range: 0-2 /LPF) 0-2 (Ref Range: 0-2 /LPF) 0-2 (Ref Range: 0-2 /LPF) * Lab:Complete Blood Count Aut o Diff * Collection Date 05/04/2024 02/14/2024 10/21/2023 Collection Time 09:42 AM 09:03 AM 12:00 PM Order Date 05/04/2024 02/14/2024 10/21/2023 White Blood Count 11.6?H (Ref Range: 4.8-10.8 X10*3/uL) 9.7 (Ref Range: 4.8-10.8 X10*3/uL) 8.3 (Ref Range: 4.8-10.8 X10*3/uL) Red Blood Count 3.86?L (Ref Range: 4.60-5.80 X10*6/uL) 3.85?L (Ref Range: 4.60-5.80 X10*6/uL) 3.52?L (Ref Range: 4.60-5.80 X10*6/uL) Hemoglobin 12.1?L (Ref Range: 14.0-18.0 g/dl) 12.0?L (Ref Range: 14.0-18.0 g/dl) 10.9?L (Ref Range: 14.0-18.0 g/dl) Hematocrit 36.2?L (Ref Range: 42.0-52.0 %) 37.2?L (Ref Range: 42.0-52.0 %) 33.4?L (Ref Range: 42.0-52.0 %) Mean Corpuscular Volume 93.8 (Ref Range: 80.0-98.0 fL) 96.6 (Ref Range: 80.0-98.0 fL) 94.9 (Ref Range: 80.0-98.0 fL) Mean Corpuscular Hemoglobin 31.3 (Ref Range: 27.0-33.0 pg) 31.2 (Ref Range: 27.0-33.0 pg) 31.0 (Ref Range: 27.0-33.0 pg) Mean Corpuscular HGB Conc 33.4 (Ref Range: 31.0-36.0 g/dl) 32.3 (Ref Range: 31.0-36.0 g/dl) 32.6 (Ref Range: 31.0-36.0 g/dl) Red Cell Distribution Width 14.8 (Ref Range: 11.0-16.0 %) 14.6 (Ref Range: 11.0-16.0 %) 15.4 (Ref Range: 11.0-16.0 %) Platelet Count 328 (Ref Range: 160-400 X10*3/uL) 304 (Ref Range: 160-400 X10*3/uL) 344 (Ref Range: 160-400 X10*3/uL) Mean Platelet Volume 10.0 (Ref Range: 9.4-12.4 fL) 10.2 (Ref Range: 9.4-12.4 fL) 9.4 (Ref Range: 9.4-12.4 fL) Neutrophils Percent Auto 72.8 (Ref Range: 45-73 %) 61.5 (Ref Range: 45-73 %) 64.3 (Ref Range: 45-73 %) Imm Gran Pct Auto 0.5?H (Ref Range: 0.0-0.4 %) 0.5?H (Ref Range: 0.0-0.4 %) 0.4 (Ref Range: 0.0-0.4 %) Lymphocytes Percent Auto 17.8?L (Ref Range: 20-40 %) 26.6 (Ref Range: 20-40 %) 25.2 (Ref Range: 20-40 %) Monocytes Percent Auto 6.1 (Ref Range: 2-11 %) 8.5 (Ref Range: 2-11 %) 7.5 (Ref Range: 2-11 %) Eosinophils Percent Auto 2.5 (Ref Range: 0-4 %) 2.5 (Ref Range: 0-4 %) 2.5 (Ref Range: 0-4 %) Basophils Percent Auto 0.3 (Ref Range: 0-2 %) 0.4 (Ref Range: 0-2 %) 0.1 (Ref Range: 0-2 %) NRBC Pct Auto 0.0 (Ref Range: 0.0-0.2 /100WBC) 0.0 (Ref Range: 0.0-0.2 /100WBC) 0.0 (Ref Range: 0.0-0.2 /100WBC) Neutrophils Absolute Auto 8.5?H (Ref Range: 2.0-8.3 x10*3/uL) 6.0 (Ref Range: 2.0-8.3 x10*3/uL) 5.4 (Ref Range: 2.0-8.3 x10*3/uL) Imm Gran Abs Auto 0.06?H (Ref Range: 0.00-0.03 X10*3/uL) 0.05?H (Ref Range: 0.00-0.03 X10*3/uL) 0.03 (Ref Range: 0.00-0.03 X10*3/uL) Lymphocytes Absolute Auto 2.1 (Ref Range: 1.2-4.9 X10*3/uL) 2.6 (Ref Range: 1.2-4.9 X10*3/uL) 2.1 (Ref Range: 1.2-4.9 X10*3/uL) Monocytes Absolute Auto 0.7 (Ref Range: 0.1-1.2 X10*3/uL) 0.8 (Ref Range: 0.1-1.2 X10*3/uL) 0.6 (Ref Range: 0.1-1.2 X10*3/uL) Eosinophils Absolute Auto 0.3 (Ref Range: 0.0-0.4 X10*3/uL) 0.2 (Ref Range: 0.0-0.4 X10*3/uL) 0.2 (Ref Range: 0.0-0.4 X10*3/uL) Basophils Absolute Auto 0.0 (Ref Range: 0.0-0.2 X10*3/uL) 0.0 (Ref Range: 0.0-0.2 X10*3/uL) 0.0 (Ref Range: 0.0-0.2 X10*3/uL) NRBC Abs Auto 0.000 (Ref Range: 0.0-0.012 X10*3/uL) 0.000 (Ref Range: 0.0-0.012 X10*3/uL) 0.000 (Ref Range: 0.0-0.012 X10*3/uL) * Lab:Urine Culture * Collection Date 05/04/2024 05/22/2023 09/29/2022 Collection Time 07:17 PM 04:50 AM Order Date 05/04/2024 05/22/2023 09/29/2022 Urine Culture urogenital contamination. 10,000 to 50,000 cfu/mL urogenital contamination. Ampicillin NR <=2?S NR Levofloxacin NR 1?S NR Nitrofurantoin NR <=16?S NR O:ENTFAC NR Enterococcus faecalis NR Tetracycline NR >=16?R NR Vancomycin NR 1?S NR * Lab:Comprehensive Met. Panel * Collection Date 05/04/2024 02/14/2024 10/21/2023 Collection Time 09:42 AM 09:03 AM 12:00 PM Order Date 05/04/2024 02/14/2024 10/21/2023 Sodium 135 (Ref Range: 135-145 mmol/L) 139 (Ref Range: 135-145 mmol/L) 137 (Ref Range: 135-145 mmol/L) Bilirubin Total 0.4 (Ref Range: 0.0-1.0 mg/dL) 0.3 (Ref Range: 0.0-1.0 mg/dL) 0.2 (Ref Range: 0.0-1.0 mg/dL) Aspartate Amino Transferase 67?H (Ref Range: 5-37 U/L) 30 (Ref Range: 5-37 U/L) 21 (Ref Range: 5-37 U/L) Alanine Aminotransferase 182?H (Ref Range: 0-40 U/L) 70?H (Ref Range: 0-40 U/L) 22 (Ref Range: 0-40 U/L) Total Protein 6.4?L (Ref Range: 6.5-8.0 g/dL) 6.9 (Ref Range: 6.5-8.0 g/dL) 6.6 (Ref Range: 6.5-8.0 g/dL) Albumin Level 3.7 (Ref Range: 3.5-5.0 g/dL) 4.2 (Ref Range: 3.5-5.0 g/dL) 3.8 (Ref Range: 3.5-5.0 g/dL) Alkaline Phosphatase 92 (Ref Range: 39-117 U/L) 92 (Ref Range: 39-117 U/L) 81 (Ref Range: 39-117 U/L) Potassium 4.9 (Ref Range: 3.3-5.1 mmol/L) 5.5?H (Ref Range: 3.3-5.1 mmol/L) 5.6?H (Ref Range: 3.3-5.1 mmol/L) Chloride 102 (Ref Range: 96-108 mmol/L) 109?H (Ref Range: 96-108 mmol/L) 104 (Ref Range: 96-108 mmol/L) Carbon Dioxide 25 (Ref Range: 22-29 mmol/L) 22 (Ref Range: 22-29 mmol/L) 24 (Ref Range: 22-29 mmol/L) Anion Gap 13 (Ref Range: 12-20) 14 (Ref Range: 12-20) 15 (Ref Range: 12-20) Blood Urea Nitrogen 28?H (Ref Range: 9-16 mg/dL) 26?H (Ref Range: 9-16 mg/dL) 20?H (Ref Range: 9-16 mg/dL) Creatinine 1.23 (Ref Range: 0.5-1.4 mg/dL) 1.13 (Ref Range: 0.5-1.4 mg/dL) 1.20 (Ref Range: 0.5-1.4 mg/dL) Estimated Glomerular Filt Rate 56 > 60 58 Glucose Random 309?H (Ref Range: 60-115 mg/dL) 126?H (Ref Range: 60-115 mg/dL) 125?H (Ref Range: 60-115 mg/dL) Calcium 8.8 (Ref Range: 8.4-10.2 mg/dL) 9.6 (Ref Range: 8.4-10.2 mg/dL) 9.2 (Ref Range: 8.4-10.2 mg/dL) Creatinine Clr Calc Pharmacy 41.4 NR 34.1 * Lab:SARS-CoV2/FLU/RSV * Collection Date 05/04/2024 10/01/2023 09/03/2023 Collection Time 09:42 AM 05:29 PM 12:03 PM Order Date 05/04/2024 10/01/2023 09/03/2023 Influenza A PCR NEGATIVE (Ref Range: Negative) NEGATIVE (Ref Range: Negative) NEGATIVE (Ref Range: Negative) Influenza B PCR NEGATIVE (Ref Range: Negative) NEGATIVE (Ref Range: Negative) NEGATIVE (Ref Range: Negative) Resp Syncy Virus RNA Qual PCR NEGATIVE (Ref Range: Negative) NEGATIVE (Ref Range: Negative) NEGATIVE (Ref Range: Negative) SARS COV2 PCR INHOUSE NEGATIVE (Ref Range: Negative) NEGATIVE (Ref Range: Negative) NEGATIVE (Ref Range: Negative) ???Imaging:Diabetic Eye Exam (Order Date - 07/18/2024) (Performed Date - 07/18/2024)?Result: undefined ???Imaging:US bladder (Order Date - 05/18/2024) (Performed Date - 05/18/2024) * Imaging:US abdomen limited * Performed Date 05/04/2024 10/21/2023 09/14/2023 01:17 PM 12:32 PM 09:18 AM Order Date 05/04/2024 10/21/2023 09/14/2023 * Imaging:XR chest 2V * Performed Date 05/04/2024 10/01/2023 09/21/2023 10:48 AM 07:04 PM 10:18 AM Order Date 05/04/2024 10/01/2023 09/21/2023 * Examination: ???General Examination: ?GENERAL APPEARANCE:?pleasant, well nourished, well developed, in no acute distress, calm and relaxed, elderly man.?HEAD:?atraumatic, normocephalic.?EYES:?eomi, perrla, anicteric, conjugate.?EARS:?Normal anatomy with mild hearing loss.?NOSE:?septum intact.?ORAL CAVITY:?normal, unremarkable.?NECK/THYROID:?no jugular venous distention, no carotid bruit, thyroid normal.?LYMPH NODES:?no enlarged lymph nodes,spleen normal.?SKIN:?no suspicious lesions, anicteric.?HEART:?no clicks, gallops, murmurs, or rubs, regular rhythm, S1, S2 normal, no s3, or vascular bruits.?LUNGS:?, diminished breath sounds throughout, no wheezes, rales, rhonchi, good air movement.?BREASTS:??no masses palpable bilaterally.?ABDOMEN:?bowel sounds normal, no ascites, no organomegaly, no mass.?RECTAL EXAM:?not examined.?MUSCULOSKELETAL:?extremities unremarkable, no clubbing, cyanosis or edema, Mild pain to range of motion lumbar spine.?PERIPHERAL PULSES:?normal.?NEUROLOGIC:?alert and oriented, cranial nerves 2-12 grossly intact, deep tendon reflexes 2+ symmetrical, motor strength normal upper and lower extremities, sensory exam intact.?PSYCH:?alert, oriented.? Assessment: * Assessment: 1.?Type 2 diabetes mellitus without complications - E11.9 (Primary)???Notes :He has been continued on his current regimen without change.? His glucose levels have been acceptable.? He has been compliant with his treatment and diet.???2.?Tobacco dependence - F17.200???Notes :He resumed smoking 10 cigarettes daily. I have counseled him at length today about smoking cessation program.???3.?Hyperlipidemia - E78.5???Notes :His lipids are stable.? A repeat fasting lipid profile will be done periodically.? No change in his regimen was necessary today.???4.?Hearing loss, bilateral - H91.93???Notes :There has been no change in his hearing. He did quite well over the telephone today.???5.?GERD without esophagitis - K21.9???Notes :His reflux symptoms have been well controlled with medication. He has been sleeping through the night lately.???6.?Benign prostatic hyperplasia, unspecified whether lower urinary tract symptoms present - N40.0???Notes :He rises from sleep 3 or 4 times a night to urinate. We have discussed lifestyle modification as a way to reduce nocturia. A prostate procedure has been scheduled by his urologist in the near future.???7.?Left carotid artery stenosis - I65.22???Notes :He has had an endarterectomy and now has a good pulse in the neck.???8.?Arteriosclerotic coronary artery disease - I25.10???Notes :He recently had an angioplasty of the right coronary artery and 2 stents put into the left system May 25, 2023 at [facility]. He says he is unable to tolerate the metoprolol as well as the Brilinta. He has had no angina since his last visit.???9.?Chronic obstructive pulmonary disease, unspecified - J44.9???Notes :He is trying to stop smoking. He continues to consume 10 cigarettes daily. He is comfortable breathing room air. He has been compliant with his medications.???10.?Complex renal cyst - N28.1???Notes :The cyst will be imaged periodically.??? Plan: * Treatment: 2.?Tobacco dependence? Continue glyBURIDE Tablet, 5 MG, TAKE 2 TABLETS BY MOUTH EVERY MORNING, Notes to Pharmacist: Patient has Insurance [place] approval from 07/05/2024-05/30/2025;?Continue Aspirin Adult Low Dose Tablet Delayed Release, 81 MG, 1 tablet, Orally, Once a day;?Continue Lisinopril Tablet, 30 MG, 1 tablet, Orally, Once a day;?Continue Metoprolol Succinate ER Tablet Extended Release 24 Hour, 25 MG, 1 tablet, Orally, Once a day;?Continue Omeprazole Capsule Delayed Release, 20 MG, 1 capsule 30 minutes before morning meal, Orally, twice a day;?Continue Atorvastatin Calcium Tablet, 20 MG, 1 tablet, Orally, Once a day;?Continue predniSONE Tablet, 20 MG, 1 tablet with food or milk, Orally, Once a day;?Continue Albuterol Sulfate HFA Aerosol Solution, 108 (90 Base) MCG/ACT, 1 puff as needed, Inhalation, every 4 hrs;?Continue Famotidine Tablet, 20 MG, 1 tablet at bedtime as needed, Orally, Once a day;?Continue Clopidogrel Bisulfate Tablet, 75 MG, 1 tablet, Orally, Once a day;?Continue Loratadine Tablet, 10 MG, 1 tablet, Orally, Once a day;?Continue Tamsulosin HCl Capsule, 0.4 MG, Oral;?Continue Pioglitazone HCl Tablet, 15 MG, 1 tablet, Orally, Once a day;?Continue Fluticasone Furoate Suspension, 27.5 MCG/SPRAY, 2 sprays (1 spray in each nostril), Nasally, Once a day;?Continue Meclizine HCl Tablet, 25 MG, 1 tablet as needed, Orally, every 12 hrs.?? 3.?Hyperlipidemia?LAB: PROFILE, FASTING (COMPREHENSIVE METABOLIC) ?LAB: CBC WITH AUTO DIFF ?LAB: Lipid Panel ?LAB: Microalbumin, Random ?LAB: Hemoglobin A1c 4.?Others? Continue metFORMIN HCl Tablet, 1000 MG, TAKE 1 TABLET BY MOUTH TWICE A DAY FOR 30 DAYS.?? * Labs:? * ?Lab: URINE DIP STICK (C ollection Date & Time - 07/28/2024) ? Value Reference Range ?SG 1.020 1.005 - 1.025 * ?pH 5.0 5.0 - 9.0 * ?ALLA 70+ Negative - * ?NIT Negative Negative - * ?PRO 100 Negative - Trac e * ?GLU Negative Negative - * ?KET Negative Negative - * ?UBG 0.2 0.1 - 1.8 * ?SELINA Negative 0.2 - 1.3 * ?BLD +++ Negative - * Procedure Codes:?32380 URINE -NO MICRO * Preventive Medicine:? ??COPD Care Plan:?Patient Lifestyle Goals?Be able to be more active with friends and family, Reduce number of ED and hospitalizations, Relieve symptoms and improve quality of life.?Treatment Goals?Quit Smoking.?Barriers?no barriers.?Self-Managment Goals?Eat a healthy diet, Get an air purifier for the rooms you are in the most.? ??Counseling:?Smoking/Tobacco Use?Patient counseled on the dangers of tobacco use and urged to quit.?07/28/2024 ?Patient Lifestyle Goals?Patient wants to quit ?Treatment Goals?Cut down by 1 cigarette a week ?Barriers?Social smoker, Stress ?Self-Management Plan?Make a plan to cut down number of cigarettes over time and set a date to work towards quitting ??DM Care Plan:?Patient Lifestyle Goals?Patient wants to be able to manage diabetes without too much effort.?Treatment Goals?HbA1C < 7.0, Blood Sugars less than < 115.?Barriers?no barriers.?Self-Managment Goals?Take blood sugars twice daily and keep a log. Bring log in to next appointment.? * Follow Up:?3 Months, September (Re ason: OV, Routine check-up) * Images: * Sign off status: Completed true * Provider:?Jemal Bustillos MD Date:?07/02 Generated for Abner camara/Vee/Vic on:?08/02/2024 12:39 PM EST History and Physical Notes * HPI (History of Present Illness) Category Sub-Category Detail Notes Depression Screening PHQ-9 Little inte rest or pleasure in doing things: Not at all Feeling down, depressed, or hopeless: No t at all Trouble falling or staying asleep, or sl eeping too much: Not at all Feeling tired or having little energy: S everal days Poor appetite or overeating: Not at all Feeling bad about yourself o r that you are a failure, or have let yourself or your family down: Not at all Trouble concentrating on thi ngs, such as reading the newspaper or watching television: Not at all Moving or speaking so slowly that other people could have noticed; or the opposite, being so fidgety or restless that you have been moving around a lot more than usual: Not at all Thoughts that you would be b baljinder off or of hurting yourself in some way: Not at all Total Score: 1 Interpretation: Minimal Depression Fall Risk Screening Fall History Have you had any falls with injury in the past year?: Yes Have you had two or more falls in the year?: No Fall Risk Assessment:: One fall with inj ury in the past year COVID-19 Screening Questions Have you had any new onset fever, chills, cough, congestion, sore throat, shortness of breath, muscle aches?: No SDOH Questions SDOH Questions In the past year have you been worried about losing your housing?: No In the past year have you or any family members you live with been unable to get any of the following when it was really needed? Check all that apply:: Decline to answer Examination Category Sub-Category Detail Notes General Examination GENERAL APPEARANCE: pleasant , well nourished, well developed, in no acute distress, calm and relaxed, elderly man HEAD: atraumatic, normocep halic EYES: eomi, perrla, anicte estela, conjugate EARS: Normal anatomy with mild hearing loss NOSE: septum intact NECK/THYROID: no jugular venous di stention, no carotid bruit, thyroid normal HEART: no clicks, gallops, murmurs, or rubs, regular rhythm, S1, S2 normal, no s3, or vascular bruits LUNGS: , diminished breath sounds throughout, no wheezes, rales, rhonchi, good air movement ABDOMEN: bowel sounds normal, no ascites, no organomegaly, no mass NEUROLOGIC: alert and oriented, cranial nerves 2-12 grossly intact, deep tendon reflexes 2+ symmetrical, motor strength normal upper and lower extremities, sensory exam intact SKIN: no suspicious lesion s, anicteric PERIPHERAL PULSES: normal BREASTS: no masses palpable b ilaterally MUSCULOSKELETAL: extremities unremark able, no clubbing, cyanosis or edema, Mild pain to range of motion lumbar spine LYMPH NODES: no enlarged lymph no ines,spleen normal RECTAL EXAM: not examined PSYCH: alert, oriented ORAL CAVITY: normal, unremarkable
--- OUTSIDE RECORDS SUMMARY | 2024-08-02 12:39 | XMS_ITS ---
Author Organization [facility] Address [address] [place] [address] Care Team Providers Care Spot Sprayer Name Role Phone Tressa BRANDT, Ileana Primary Care Provider Eladio Stokes Jr, Nicolás Martinez Encounters Encounter Location Date Provider Diagnosis [facility] [address] [place] [address] 12/27/2023 Nicolás Puckett Jr Plan Of Treatment No Information Progress Notes * BETTY MENDEZ LDOB:[birth year] (84 yo M)Acc No.[id number]:12/27/2023 Progress Notes Patient:?BETTY MENDEZ Provider:?Nicolás Puckett MD :1940???Age:83 Y???Sex:Male Andriy e:12/27/2023 Address:[address] [place], [place] [id number] Pcp:Ileana Bustillos MD Subjective: * Chief Complaints: * ??? * Medical History:? Objective: * Vitals:? Assessment: Plan: * Treatment: * * The named appointment provid er may or may not be the originator of this progress note, and it is not deemed complete until electronically signed by the appointment provider. Sign off status: Pending * Provider:?Nicolás Puckett MD Date:?0 12/27/2023 Generated for Printi ng/Faxing/eTransmitting on:?08/02/2024 12:38 PM EST
--- OUTSIDE RECORDS SUMMARY | 2024-08-02 12:39 | XMS_ITS ---
Author Organization [facility] Address [address] [place] [phone] Care Team Providers Care Computer Aided Design Drafter Name Role Phone Ileana Bustillos MD Primary Care Provider Unavailab Nicolás Stokes Jr REASON FOR VISIT ov appt Encounters Encounter Location Date Provider Diagnosis [facility] [address] [place] [phone] 09/09/2023 Nicolás Puckett Jr Plan Of Treatment No Information Progress Notes * BETTY MENDEZ LDOB:[birth year] (83 yo M)Acc No.[id number]:09/09/2023 Patient:?BETTY MENDEZ :1940???Age:83 Y???Sex:Male Address:[address] [place] [address], [address] * true * Date:? Generated for Abner camara/Vee/eTransmitting on:?08/02/2024 12:39 PM EST
--- OUTSIDE RECORDS SUMMARY | 2024-08-02 12:39 | XMS_ITS ---
Author Organization Jemal Bustillos III, MD Address [address] [place] [address] [place] [address] Care Team Providers Care Blending Technician Name Role Phone Jemal Bustillos Primary Care Provider REASON FOR VISIT Message Social History Sex Assigned At : Social History Observation Description Sex Assigned At Male Encounters Encounter Location Date Provider Diagnosis Jemal Bustillos III, MD [address] [place] [address] [place] [address] 07/12/2024 Jemal Bustillos Plan Of Treatment Next Appt Details Provider Name:Jemal Bustillos, 10/25/2024 09:45:00 AM, [address] [place] [address] [place], [address], Provider Name:Jemal Bustillos, 07/30/2025 09:30:00 AM, [address] [place] [address] [place], [address], Progress Notes * Beck PERDOMOOB:1940 (84 yo M)Acc No.[id number]:07/12/2024 Patient:?Antolin PERDOMO :1940???Age:84 Y???Sex:Male Address:[address] [place] [address] [place], [address] * true * Date:? Generated for Abner camara/Vee/Daniellaitting on:?08/02/2024 12:38 PM EST
--- OUTSIDE RECORDS SUMMARY | 2024-08-02 12:39 | XMS_ITS | Patient Health Record ---
Author Organization [facility] Address [address] [place] [address] Care Team Providers Care Precision Assembler Name Role Phone Ileana Bustillos MD Primary Care Provider UnavailNicolás Cheney Jr Unavailable [phone] Allergies No Known Allergies Reason For Referral No Information Medications Medication SIG (Take, Route, Frequency, Duration) Notes Start Date End Date Status Ondansetron HCl 4 MG TAKE 1 TABLET ORALL Y EVERY 6 HOURS 7 DAYS Oral for 7 Active Aspirin 81 81 MG 1 tablet Orally Once a day for 30 day(s) 06/30/2023 Active Nicotine 21 MG/24HR APPLY 1 PATCH TO SKI N TOPICALLY ONCE A DAY FOR 21 DAYS Transdermal for 21 Active Atorvastatin Calcium 80 MG TAKE 1 TABLET BY MOUTH EVERYDAY AT BEDTIME Oral for 90 Active Metoprolol Tartrate 50 MG Oral for 30 Active Brilinta 90 MG TAKE 1 TABLET BY ARLEN TH TWO TIMES A DAY Oral for 30 Active Lisinopril 20 MG Oral for 90 A ctive glyBURIDE 5 MG TAKE 2 TABLETS BY MO UTH EVERY MORNING Oral for 90 Active Omeprazole 20 MG Oral for 30 A ctive Immunizations Vaccine Route Administration Date Status Comme nts Influenza Unknown 06/30/2023 Refused Social History Tobacco Use: Social History Observation Description Date Details (start date - stop date) Current Smoker NA - NA Tobacco Use/Smoking Question Answer Notes Patient is a current smoker Alcohol Screen Question Answer Notes Did you have a drink containing alcohol in the p ast year? No Points 0 Interpretation Negative Problems Problem Type SNOMED Code ICD Code Onset Dates Problem Status W/U Status Risk Notes Problem [id number] Acute gastritis without hemorrhage, unspecified gastritis type (K29.00) Active confirmed Encounters Encounter Location Date Provider Diagnosis [facility] [address] [place] [address] 08/25/2023 Nicolás Puckett Jr [facility] [address] [place] [address] 09/09/2023 Nicolás Puckett Jr Plan Of Treatment No Information Insurance Providers Payer Name Payer Address Payer Phone Subscriber Number Group Number Insured Name Patient Relationship to Insured Coverage Start Date Coverage End Date [facility] [address] [place] [phone] [id number] BETTY MENDEZ Self - patient is the insured MED[place] [address] [place] [address] [id number] BETTY MENDEZ Self - patient is the insured Medical (General) History Medical History History ICD Code Diabetes mellitus Coronary artery disease with history NSTEMI and PCI with stent placement x205/22 Hypertension Hyperlipidemia Peripheral vascular disease TIA Nephrolithiasis Back pain Surgical History Surgery Date(Month/Year) PCI/ALVAREZ x2 05/22/2023 Kidney stone removal 09/28/21 Iliac artery stent placement
--- OUTSIDE RECORDS SUMMARY | 2024-08-02 12:39 | XMS_ITS ---
Author Organization Jemal Bustillos III, MD Address [address] [place] [address] [place] [address] Care Team Providers Care Health Coach Name Role Phone Jemal Bustillos Primary Care Provider REASON FOR VISIT Annual Exam Social History Sex Assigned At : Social History Observation Description Sex Assigned At Male Encounters Encounter Location Date Provider Diagnosis Jemal Bustillos III, MD [address] [place] [address] [place] [address] 07/07/2024 Jemal Bustillos Plan Of Treatment Next Appt Details Provider Name:Jemal Bustillos, 10/25/2024 09:45:00 AM, [address] [place] [address] [place], [address], Provider Name:Jemal Bustillos, 07/30/2025 09:30:00 AM, [address] [place] [address] [place], [address], Progress Notes * Beck PERDOMOOB:1940 (84 yo M)Acc No.[id number]:07/07/2024 Progress Notes Patient:?Antolin PERDOMO Provider:?Jemal Bustillos MD :1940???Age:84 Y???Sex:Male Andriy e:07/07/2024 Address:[address] [place], [place] [phone] Subjective: * Chief Complaints: * ???1. Annual Exam. * Medical History:? Objective: * Vitals:? Assessment: Plan: * Treatment: * Images: * The named appointment provid er may or may not be the originator of this progress note, and it is not deemed complete until electronically signed by the appointment provider. Sign off status: Pending * Provider:?Jemal Bustillos MD Date:?11/2024 Generated for Abner camara/Vee/Daniellaitting on:?08/02/2024 12:39 PM EST
--- OUTSIDE RECORDS SUMMARY | 2024-08-02 12:39 | XMS_ITS ---
Author Organization [facility] Address [address] [place] [address] Care Team Providers Care Bicycle Repairman Name Role Phone Tressa BRANDT, Ileana Primary Care Provider Eladio Stokes Jr, Nioclás Martinez [phone] REASON FOR VISIT N/V EARLY SATIETY/hemoptysis Encounters Encounter Location Date Provider Diagnosis [facility] [address] [place] [address] 10/04/2023 Nicolás Puckett Jr Plan Of Treatment No Information Progress Notes * BETTY MENDEZ LDOB:[birth year] (84 yo M)Acc No.[id number]:10/04/2023 Progress Notes Patient:?BETTY MENDEZ Provider:?Nicolás Puckett MD :1940???Age:83 Y???Sex:Male Andriy e:10/04/2023 Address:[address] [place], [place] [id number] Pcp:Ileana Bustillos MD Subjective: * Chief Complaints: * ???1. N/V EARLY SATIETY/hemo ptysis. * Medical History:? Objective: * Vitals:? Assessment: Plan: * Treatment: * * The named appointment provid er may or may not be the originator of this progress note, and it is not deemed complete until electronically signed by the appointment provider. Sign off status: Pending * Provider:?Nicolás Puckett MD Date:?0 10/04/2023 Generated for Printi ng/Faxing/eTransmitting on:?08/02/2024 12:38 PM EST
== END 2024-08-02 11:12 | disposition home or self-care (01) ==
PROVIDERS: PCP Internal Medicine Medical Oncology; Visit Provider Urology
DX: N40.1 Benign prostatic hyperplasia with lower urinary tract symptoms (principal); N13.8 Other obstructive and reflux uropathy; N20.0 Calculus of kidney
CPT/HCPCS: 99024

== ENCOUNTER → 2024-08-02 10:37 | Outpatient (BNVA) | payer MEDICARE, MEDICAID, SELFPAY | PROVIDERS: PCP Internal Medicine Medical Oncology; Visit Provider Urology | DX: N40.1 Benign prostatic hyperplasia with lower urinary tract symptoms (principal); N13.8 Other obstructive and reflux uropathy; N20.0 Calculus of kidney | CPT/HCPCS: 99212 ==

== ENCOUNTER 2024-08-29 09:30 | Outpatient (AMB) | payer MEDICARE, MEDICAID, SELFPAY ==
--- NOTE | 2024-08-29 09:32 | A.OFFVIS_ITS ---
Vital Signs 08/29/24 09:33 Height 5 ft 5 in Weight 125 lb 10.616 oz BMI 20.9 BP 160/80 H Blood Pressure Location Lt brachial Position Sitting Pulse 60 Intake Visit Reasons: 3 mt f/up Intake Note: 3 month follow-up feeling good Regional Sales Director Required: No Allergies No Known Allergies [No Known Allergies*] Allergy (Verified 08/02/24 10:43) Medication List - Last Reconciled 08/29/24 by Thanh Sifuentes MD amlodipine 10 mg PO DAILY aspirin 81 mg PO DAILY atorvastatin 80 mg PO DAILY clopidogrel 75 mg PO DAILY glyburide 10 mg PO DAILY@0900 hydrocodone-acetaminophen 5-325 mg tabs PO lisinopril 5 mg PO DAILY metformin 1,000 mg PO DAILY HPI Comments Details: Antolin comes for follow-up. He underwent prostate surgery last month without much issues. Currently still remains on clopidogrel therapy for unclear reasons. He was not had any bleeding issues. Denies any exertional chest pain. Unfortunately continues to smoke. His blood pressure on today's exam is elevated and says always elevated. He said his lisinopril for was reduced for some reason he does not recall why. Denies any clear claudication symptoms. No lightheadedness, syncope. No prolonged palpitation irregular heartbeat. No significant worsening shortness of breath, orthopnea, PND, leg edema. [facility] Medical History CAD (coronary artery disease) Nephrolithiasis NSTEMI (non-ST elevated myocardial infarction) Nausea Acute cholecystitis Hyperlipidemia Peripheral arterial disease TIA (transient ischemic attack) COPD (chronic obstructive pulmonary disease) Hearing loss Elevated cholesterol HTN (hypertension) Staghorn calculus Enlarged prostate Diabetes mellitus, type II Renal cysts, acquired, bilateral History of kidney stones Rotator cuff impingement syndrome Surgical History Hx of cardiac catheterization Hx of cystoscopy History of left-sided carotid endarterectomy Hx of cataract surgery Hx of lithotripsy History of surgery Social History Household Members: None Household Members Other:: 0 Housing: House Housing Other:: apt. in duplex Are you a primary director of health care marketing to a significant other at home: No Do you presently have visiting nurse or other home services: No Patient Tobacco Use Status: Current everyday Tobacco user Tobacco use type: Cigarette Cigarette Packs Per Day: 1.5 Cigarettes Per Day: 30.0 Years Smoked: 60 e-Cigarette/Vaping Use: Never Used Advance Directives Date on File: 09/29/22 service: Yes Current occupational status: employed Review of Systems Const Denies chills, Denies fatigue, Denies fever(s), Denies frequent falls, Denies weakness, Denies weight gain and Denies weight loss ENT Denies dizziness Card Denies chest pain, Denies leg edema, Denies lightheadedness, Denies palpitations, Denies dyspnea, Denies dyspnea on exertion, Denies orthopnea and Denies other (loss of consciousness) Resp Denies cough, Denies dyspnea and Denies dyspnea on exertion GI Denies hematochezia and Denies change in stool character Musc Denies abnormal gait, Denies muscle weakness, Denies numbness, Denies radiating pain into limb and Denies tingling Neuro Denies abnormal gait, Denies dizziness, Denies frequent falls, Denies numbness, Denies tingling and Denies weakness Endo Denies fatigue and Denies palpitations Physical Exam Vital Signs: Last Vital Signs Pulse 60 08/29/24 09:33 BP 160/80 H 08/29/24 09:33 BMI result Body Mass Index 20.9 Const General: cooperative, comfortable, no acute distress, alert, awake and poor hygiene Nutritional Appearance: thin and other (Frail elderly man) Orientation/consciousness: patient oriented x3 Neck Neck: Yes normal visual inspection and Yes no JVD Chest Chest palpation & inspection: normal inspection of the chest Resp Effort & Inspection: normal respiratory effort Auscultation: clear to auscultation bilaterally, no rales, no rhonchi, no wheezes and diminished lung sounds Cardio Jugular venous distension: no JVD Rate: regular rate Rhythm: regular rhythm Heart sounds: S1 normal heart sound present, S2 normal heart sound present, no murmurs and no rubs Neuro General: patient oriented x3 Extrem General: Yes normal to inspection, No no pedal edema and No calf tenderness Psych Appearance: grossly normal Mental Status: mental status grossly normal Speech and movement: Normal speech and movement present Assessment & Plan Assessment & Plan (1) CAD (coronary artery disease): Comment: follows with [facility] Code(s): I25.10 - Atherosclerotic heart disease of [place] coronary artery without angina pectoris Category: Medical Qualifiers: Associated angina: unspecified whether angina present Coronary Disease- Associated Artery/Lesion type: [place] artery [place] vs. transplanted heart: [place] heart Qualified Code(s): I25.10 - Atherosclerotic heart disease of [place] coronary artery without angina pectoris Plan: Diffuse atherosclerotic disease in this elderly gentleman with unfortunately continued smoking which increase his risk. This was discussed with him. He is not interested in quitting smoking. He is more than a year since his stenting for the coronary arteries. Plavix can be discontinued at this point time. Continue aspirin for lifelong. Needs aggressive risk factor modification. Currently on high-intensity statin therapy. Annual lipid check with target goal LDL less than 70 mg/dL. (2) Uncontrolled hypertension: Code(s): I10 - Essential (primary) hypertension Category: Medical Plan: Uncontrolled blood pressure this elderly gentleman which increase his stroke risk. Discussed with him about this. He needs further intensification in his blood pressure control. Target goal blood pressure less than 140. Will increase lisinopril to 10 mg daily. Advised to follow up in the clinic in 1 week's time for blood pressure check. Low-salt diet was discussed. Smoking cessation was advised. Continue amlodipine in addition. Follow up in the clinic in 1 weeks for blood pressure check. Will see him in the clinic otherwise in 6 months time. Thank you for allowing me to partake in his care Medications: New lisinopril 10 mg PO DAILY 90 tabs 3RF Discontinued lisinopril Discontinued Reason: Doctor's Order 5 mg PO DAILY 90 tabs 1RF Coding Level of Care Code Est Pt Level 4 (67071) Complex EM visit Add On G2211 Diagnoses Coronary artery disease involving [place] coronary artery of [place] heart, unspecified whether angina present I25.10 Associated angina: unspecified whether angina present Coronary Disease-Associated Artery/Lesion type: [place] artery [place] vs. transplanted heart: [place] heart Uncontrolled hypertension I10
[2024-08-29 09:33] VITALS: BP 160/80; PULSE 60; BMI 20.9
--- OUTSIDE RECORDS SUMMARY | 2024-08-29 10:45 | XMS_ITS ---
Author Organization Jemal Bustillos III, MD Address [address] [place] [address] [place] [address] Care Team Providers Care Engine Boss Name Role Phone Jemal Bustillos Primary Care [...] Date Provider Diagnosis Jemal Bustillos III, MD [address] [place] [address] [place] [address] 07/28/2024 Jemal Bustillos Tobacco dependence F17.200 ; [...] the left system May 25, 2023 at [facility]. He says he is unable to [...] Provider Name:Jemal Narvaezrne, 10/25/2024 09:45:00 AM, [address] [facility] [address], [place], [phone], Provider Name:Jemal Bustillos, 07/30/2025 09:30:00 AM, [address] [place] [address] [address], [place], [phone], Progress Notes * VANESSAHortensia COLINKerenOB:1940 (84 yo M)Acc No.[id number]:07/28/2024 Progress Notes Patient:?VANESSAAntolin Gallegos Provider:?eJmal Bustillos MD :1940???Age:84 Y???Sex:Male Andriy e:07/28/2024 Address:[address] [place] [address], [place], [phone] Subjective: * Chief Complaints: * ???Annual Exam * HPI: ???Depression Screening:? last wed had surg on prostate at [facility] had anesthesia,? now has noct x2. [...] his bladder. The surgery was performed at [facility]. Since the surgery, the patient has been [...] * Surgical History:?bilateral cataracts left carotid endarterectomy [facility], Dr. Alonso 09/2017Cystoscopy with left ureteral stent subsequently removed, ureterolithiasis 3Cardiac cath with 2 stent placements [place] [facility] [place] [facility] 07/2024 * Hospitalization/Major Diagno stic Procedure:?TIA 08/2017Hospitalized at [facility] for prostate surgery * Family History:?Father: dece [...] point) ?Points?1 ?Interpretation?Negative ???He was to Anamaria (Alicia) for 49 years and is now . They had three sons and 2 grandchildren. 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 He smoked cigarettes but does [...] Range: Negative) Negative (Ref Range: Negative) Specific [place] - Urine 1.015 (Ref Range: 1.005-1.025) 1.015 [...] the left system May 25, 2023 at [facility]. He says he is unable to [...] * ?BLD +++ Negative - * Procedure Codes:?86907 URINE -NO MICRO * Preventive Medicine:? ??COPD [...] * Sign off status: Completed true * Provider:?Jemla Bustillos MD Date:?07/02 Generated for Abner camara/Vee/Vic on:?08/29/2024 10:45 AM EDT History and Physical Notes * HPI (History [...]
--- OUTSIDE RECORDS SUMMARY | 2024-08-29 10:45 | XMS_ITS | Patient Health Record ---
Author Organization [facility] Address [address] [place] [phone] Care Team Providers Care Wordpress Developer Name Role Phone Ileana Bustillos MD Primary Care Provider UnavailNicolás Cheney Jr Unavailable [phone] Allergies No Known Allergies Reason For Referral [...] Problem Status W/U Status Risk Notes Problem [id number] Acute gastritis without hemorrhage, unspecified gastritis type (K29.00) Active confirmed Encounters Encounter Location Date Provider Diagnosis [facility] [address] [place] [address] 09/09/2023 Nicolás Puckett Jr Plan Of Treatment No Information Insurance Providers Payer Name Payer Address Payer Phone Subscriber Number Group Number Insured Name Patient Relationship to Insured Coverage Start Date Coverage End Date [facility] [address] [place] [phone] [id number] BETTY MENDEZ Self - patient is the insured MEDICAID OF [employer] [address] [place] [address] [id number] BETTY MENDEZ Self - patient is the insured Medical (General) History Medical History History ICD Code Diabetes mellitus Coronary artery disease with history NSTEMI and PCI with stent placement x205/22 Hypertension Hyperlipidemia Peripheral vascular disease TIA Nephrolithiasis Back pain Surgical History Surgery Date(Month/Year) PCI/ALVAREZ x2 05/22/2023 Kidney stone removal 09/28/21 Iliac artery stent placement
--- OUTSIDE RECORDS SUMMARY | 2024-08-29 10:45 | XMS_ITS ---
Author Organization [facility] Address [address] [place] [address] Care Team Providers Care Training And Development Rep Name Role Phone Ileana Bustillos MD Primary Care Provider Unavailab Nicolás Stokes Jr REASON FOR VISIT ov appt Encounters Encounter Location Date Provider Diagnosis [facility] [address] [place] [phone] 09/09/2023 Nicolás Puckett Jr Plan Of Treatment No Information Progress Notes * BETTY MENDEZ LDOB:[birth year] (83 yo M)Acc No.[id number]:09/09/2023 Patient:?BETTY MENDEZ :1940???Age:83 Y???Sex:Male Address:[address] [place] [address], [address] * true * Date:? Generated for Miriani jax/Vee/eTransmitting on:?08/29/2024 10:45 AM EDT
--- OUTSIDE RECORDS SUMMARY | 2024-08-29 10:45 | XMS_ITS ---
Author Organization [facility] Address [address] [place] [address] Care Team Providers Care Welcome Desk Agent Name Role Phone Tressa BRANDT, Ileana Primary Care Provider Eladio Stokes Jr, Nicolás Martinez REASON FOR VISIT N/V EARLY SATIETY/hemoptysis Encounters Encounter Location Date Provider Diagnosis [facility] [address] [place] [address] 10/04/2023 Nicolás Puckett Jr Plan Of Treatment No Information Progress Notes * BETTY MENDEZ LDOB:[birth year] (84 yo M)Acc No.[id number]:10/04/2023 Progress Notes Patient:?BETTY MENDEZ Provider:?Nicolás Puckett MD :1940???Age:83 Y???Sex:Male Andriy e:10/04/2023 Address:[address] [place], [place] [id number] Pcp:Ileana Bustillos MD Subjective: * Chief Complaints: [...] MD Date:?0 10/04/2023 Generated for Printi ng/Faxing/eTransmitting on:?08/29/2024 10:44 AM EDT
--- OUTSIDE RECORDS SUMMARY | 2024-08-29 10:45 | XMS_ITS ---
Author Organization [facility] Address [address] [place] [address] Care Team Providers Care Hog Cooler Name Role Phone Tressa BRANDT, Ileana Primary Care Provider Eladio Stokes Jr, Nicolás Martinez Encounters Encounter Location Date Provider Diagnosis [facility] [address] [place] [address] 12/27/2023 Nicolás Puckett Jr Plan Of Treatment No Information Progress Notes * BETTY MENDEZ LDOB:[birth year] (84 yo M)Acc No.[id number]:12/27/2023 Progress Notes Patient:?BETTY MENDEZ Provider:?Nicolás Puckett MD :1940???Age:83 Y???Sex:Male Andriy e:12/27/2023 Address:[address] [place], [place] [id number] Pcp:Ileana Bustillos MD Subjective: * Chief Complaints: [...] MD Date:?0 12/27/2023 Generated for Printi ng/Faxing/eTransmitting on:?08/29/2024 10:44 AM EDT
--- OUTSIDE RECORDS SUMMARY | 2024-08-29 10:45 | XMS_ITS ---
Author Organization Jemal Bustillos III, MD Address [address] [place] [address] [place] [address] Care Team Providers Care Pool Attendant Name Role Phone Jemal Bustillos Primary Care Provider REASON FOR VISIT Message Social History Sex Assigned At : Social History Observation Description Sex Assigned At Male Encounters Encounter Location Date Provider Diagnosis Jemal Bustillos III, MD [address] [place] [address] [place] [address] 07/12/2024 Jemal Bustillos Plan Of Treatment Next Appt Details Provider Name:Jemal Bustillos, 10/25/2024 09:45:00 AM, [address] [place] [address] [place], [address], Provider Name:Jemal Bustillos, 07/30/2025 09:30:00 AM, [address] [place] [address] [place], [phone], Progress Notes * Beck PERDOMOOB:1940 (84 yo M)Acc No.[id number]:07/12/2024 Patient:?Antolin PERDOMO :1940???Age:84 Y???Sex:Male Address:[address] [place] [address], [address] * true * Date:? Generated for Abner camara/Vee/Gloriasmitting on:?08/29/2024 10:44 AM EDT
--- OUTSIDE RECORDS SUMMARY | 2024-08-29 10:45 | XMS_ITS ---
Author Organization Jemal Bustillos III, MD Address [address] [place] [address] [place] [address] Care Team Providers Care Refinish Technician Name Role Phone Jemal Bustillos Primary Care Provider [phone] REASON FOR VISIT HCC Risk Codes Social History Sex Assigned At : Social History Observation Description Sex Assigned At Male Encounters Encounter Location Date Provider Diagnosis Jemal Bustillos III, MD [address] [place] [address] [place] [address] 08/14/2024 Jemal Bustillos Plan Of Treatment Next Appt Details Provider Name:Jemal Bustillos, 10/25/2024 09:45:00 AM, [address] [place] [address] [place], [phone], Provider Name:Jemal Bustillos, 07/30/2025 09:30:00 AM, [address] [place] [address] [place], [phone], Progress Notes * Beck PERDOMOOB:1940 (84 yo M)Acc No.[id number]:08/14/2024 Patient:?Antolin PERDOMO :1940???Age:84 Y???Sex:Male Address:[address] [place] [address], [place], [address] * true * Date:? Generated for Abner camara/Vee/Gloriasmitting on:?08/29/2024 10:44 AM EDT
--- OUTSIDE RECORDS SUMMARY | 2024-08-29 10:45 | XMS_ITS | Clinical Summary ---
Author Organization [facility] Address [address] [place] [phone] Phone Care Team Providers Care Health Aid Name Role Phone Unavailable Primary Care Provider Unavailabl e Social History Tobacco Use Types Packs/Day Years Used Date Smoking Tobacco: Never Assessed Education Answer Date Recorded Are you interested in more education? Not on anil e 10/04/2023 Are you concerned about learning? Not on file 10/04/2023 No 10/04/2023 No 10/04/2023 Digital Access Answer Date Recorded No 10/04/2023 No 10/04/2023 Reliable internet access at home? Not on file 10/04/2023 Device with a working camera? Not on file Sex and Gender Information Value Date Recorded Sex Assigned at Not on file Gender Identity Not on file Sexual Orientation Not on file Plan of Treatment Not on file Medical Devices Not on file Additional Source Comments The information contained in this document represents components of the legal health record. It is not the complete legal health record.[facility]
== END 2024-08-29 09:51 | disposition home or self-care (01) ==
LOC: HO.HCS 09:30
PROVIDERS: PCP Internal Medicine Medical Oncology; Visit Provider Internal Medicine Cardiovascular Disease
DX: I25.10 Atherosclerotic heart disease of native coronary artery without angina pectoris (principal); I10 Essential (primary) hypertension
CPT/HCPCS: 99214; G2211

== ENCOUNTER → 2024-08-29 09:30 | Outpatient (BNVA) | payer MEDICARE, MEDICAID, SELFPAY | PROVIDERS: PCP Internal Medicine Medical Oncology; Visit Provider Internal Medicine Cardiovascular Disease | DX: I25.10 Atherosclerotic heart disease of native coronary artery without angina pectoris (principal); I10 Essential (primary) hypertension | CPT/HCPCS: 99212 ==

== ENCOUNTER 2024-10-20 06:54 | Outpatient (REF) | payer MEDICARE, MEDICAID, SELFPAY ==
--- OUTSIDE RECORDS SUMMARY | 2024-10-20 06:58 | XMS_ITS | Patient Health Record ---
Author Organization Jemal Bustillos III, MD Address [address] [place] [address] Care Team Providers Care Senior Training Specialist Name Role Phone Jemal Bustillos Primary Care [...] 0.2 - 1.3 BLD +++ Negative - Complete Blood Count Auto Di ff Reviewed date:10/22/2023 11:05:04 AM Interpretation: Performing Lab:[facility], [address] [place] [address] Notes/Report: White Blood Count 8.3 4.8-10.8 X10*3/uL Red Blood Count 3.52 4.60-5.80 X10*6/uL Hemoglobin 10.9 14.0-18.0 g/dl Hematocrit 33.4 42.0-52.0 % Mean Corpuscular Volume 94.9 80.0-98.0 fL Mean Corpuscular Hemoglobin 31.0 27.0-33.0 pg Mean Corpuscular HGB Conc 32.6 31.0-36.0 g/dl Red Cell Distribution Width 15.4 11.0-16.0 % Platelet Count 344 160-400 X10*3/uL Mean Platelet Volume 9.4 9.4-12.4 fL Neutrophils Percent Auto 64.3 45-73 % Imm Gran Pct Auto 0.4 0.0-0.4 % Lymphocytes Percent Auto 25.2 20-40 % Monocytes Percent Auto 7.5 2-11 % Eosinophils Percent Auto 2.5 0-4 % Basophils Percent Auto 0.1 0-2 % NRBC Pct Auto 0.0 0.0-0.2 /100WBC Neutrophils Absolute Auto 5.4 2.0-8.3 x10*3/uL Imm Gran Abs Auto 0.03 0.00-0.03 X10*3/uL Lymphocytes Absolute Auto 2.1 1.2-4.9 X10*3/uL Monocytes Absolute Auto 0.6 0.1-1.2 X10*3/uL Eosinophils Absolute Auto 0.2 0.0-0.4 X10*3/uL Basophils Absolute Auto 0.0 0.0-0.2 X10*3/uL NRBC Abs Auto 0.000 0.0-0.012 X10*3/uL Comprehensive Met. Panel Reviewed date:10/22/2023 11:05:04 AM Interpretation: Performing Lab:[facility], [address] [place] [phone] Notes/Report: Sodium 137 135-145 mmol/L Potassium 5.6 3.3-5.1 mmol/L Chloride 104 96-108 mmol/L Carbon Dioxide 24 22-29 mmol/L Anion Gap 15 12-20 Blood Urea Nitrogen 20 9-16 mg/dL Creatinine 1.20 0.5-1.4 mg/dL Creatinine Clr Calc Pharmacy 34.1 eGFR (calculated from the MDRD study equation) and eCrCl (calculated from the Cockcroft-Gault equation) are based on different parameters and may not yield comparable results. If eCrCl result is absurd, please check patient's height/weight. Estimated Glomerular Filt Rate 58 NOTE: For -Wallisian individuals, multiply the result by 1.210. Chronic Kidney Disease: Estimated GFR < 60 mL/min/1.73m2 Severe Kidney Disease: Estimated GFR < 15 mL/min/1.73m2 Glucose Random 125 60-115 mg/dL Calcium 9.2 8.4-10.2 mg/dL Bilirubin Total 0.2 0.0-1.0 mg/dL Aspartate Amino Transferase 21 5-37 U/L Alanine Aminotransferase 22 0-40 U/L Total Protein 6.6 6.5-8.0 g/dL Albumin Level 3.8 3.5-5.0 g/dL Alkaline Phosphatase 81 39-117 U/L Basic Metabolic Panel Reviewed date:10/22/2023 11:05:05 AM Interpretation: Performing Lab:[address] [phone] Notes/Report: Sodium 137 135-145 mmol/L Potassium 5.7 3.3-5.1 mmol/L Slight Hemoly sis Chloride 106 96-108 mmol/L Carbon Dioxide 23 22-29 mmol/L Anion Gap 14 12-20 Blood Urea Nitrogen 19 9-16 mg/dL Creatinine 1.00 0.5-1.4 mg/dL Creatinine Clr Calc Pharmacy 41.0 eGFR (calculated from the MDRD study equation) and eCrCl (calculated from the Cockcroft-Gault equation) are based on different parameters and may not yield comparable results. If eCrCl result is absurd, please check patient's height/weight. Estimated Glomerular Filt Rate > 60 NOTE: For -Wallisian individuals, multiply the result by 1.210. Chronic Kidney Disease: Estimated GFR < 60 mL/min/1.73m2 Severe Kidney Disease: Estimated GFR < 15 mL/min/1.73m2 Glucose Random 90 60-115 mg/dL Calcium 8.6 8.4-10.2 mg/dL Magnesium Reviewed date:10/22/2023 11:05:04 AM Interpretation: Performing Lab:[facility], [address] [place] [phone] Notes/Report: Magnesium 1.5 1.6-2.6 mg/dL C Reactive Protein Reviewed date:10/22/2023 11:05:04 AM Interpretation: Performing Lab:[facility], [address] [place] [phone] Notes/Report: C Reactive Protein < 0.10 < or = 0.50 mg/dL Lipase Reviewed date:10/22/2023 11:05:04 AM Interpretation: Performing Lab:[address] [phone] Notes/Report: Lipase 12 8-78 U/L UA ClnCatch+Micro w/rflx Cul t Reviewed date:10/22/2023 11:05:04 AM Interpretation: Performing Lab:[facility], [address] [place] [phone] Notes/Report: [id number] Urine, Clean Catch Color Urine Yellow Appearance Urine Cloudy PH 5.5 5.0-9.0 Glucose Urine UA Negative Negative mg/dL Urine Blood Negative Negative Specific [place] - Urine 1.015 1.005-1.025 Urine Protein Trace Neg-Trace mg/dL Urine Ketones Negative Negative mg/dL Nitrite Urine Negative Negative Leukocyte Esterase Urine Trace Negative RBC Urine 0-2 0-2 /HPF WBC Urine 0-5 0-5 /HPF Squamous Epithelial Cell Urine 0-2 0-2 /HPF Bacteria Urine None Seen None Seen Hyaline Casts Urine 0-2 0-2 /LPF CT abdomen pelvis w con Reviewed date:10/22/2023 11:05:05 AM Interpretation: Performing Lab: Notes/Report: [address] [address] [address] Scan Report Signed Patient: Antolin Perdomo MR#: [id number] 680 : 1940 Acct:[id number] Age/Sex: 83 / M ADM Date: 10/21/23 Loc: HO.ED Attending Dr: Ordering Physician: Blake Morales MD Date of Service: 10/21/23 Procedure(s): CT abdomen pelvis w IV con Accession Number(s): [id number] cc: Jemal Bustillos MD; Blake Morales MD EXAMINATION: CT ABDOMEN AND PELVIS WITH CONTRAST CLINICAL INFORMATION: Abdominal pain, distention and vomiting COMPARISON: Ultrasound abdomen earlier today, CT abdomen pelvis 09/08/2023, CT chest 10/02/2023 TECHNIQUE: Multidetector volumetric images were obtained from the superior aspect of the liver through the pubic symphysis following administration 85 mL of Omnipaque 350 intravenous contrast. Sagittal and coronal reformatted images were obtained on the technologist's workstation. Oral contrast: No This CT examination was performed using dose optimization techniques as appropriate, variously including the following: *Automated exposure control *Adjustment of mA and/or kV according to patient size (this includes techniques or standardized protocols for targeted exams where dose is matched to indication/reason for exam; i.e. extremities or head) *Use of iterative reconstruction technique DLP: 307 mGy-cm FINDINGS: LUNG BASES: Mild emphysematous changes are seen. No worrisome lung mass, infiltrate or effusion is seen. LIVER, GALLBLADDER, AND BILIARY TREE: The liver is prominent in size at 17 mm with a minimally nodular border. No focal hepatic lesion or biliary ductal dilatation is present. At the fundus of the gallbladder, there is a soft tissue density seen which has been seen on prior CT scans as well as the most recent abdominal CT. This could represent tumefactive sludge or possibly polypoid mass. Otherwise, the gallbladder is unremarkable with no evidence of radiopaque or obvious pericholecystic inflammatory changes. PANCREAS: Unremarkable. SPLEEN: Unremarkable. ADRENAL GLANDS: Unremarkable. KIDNEYS AND URETERS: The kidneys are normal in size, shape, and attenuation. Multiple bilateral benign Bosniak class I renal cysts are noted, the largest measuring 4.4 cm on the left which require no additional imaging or follow-up. No solid renal masses are seen. Is bilateral nonobstructing nephrolithiasis present which has been seen in the past. Largest stones measure 4 mm in the mid left kidney and 7 mm at the left lower pole. No hydronephrosis, hydroureter, or ureteral calculi seen. There is bilateral nonspecific perinephric stranding. BLADDER: Unremarkable. GASTROINTESTINAL TRACT: The small and large bowel are unremarkable. The appendix is not seen but there is no evidence of appendicitis evidence of appendicitis. ABDOMINAL WALL: No significant hernia is appreciated. LYMPH NODES: No retroperitoneal lymphadenopathy. VASCULAR: Severe calcific and noncalcific atherosclerotic changes are present in the aorta and iliofemoral vessels. A left external iliac artery stent is present. Significant peripheral vascular disease is present. There is no evidence of an abdominal aortic aneurysm. PELVIC VISCERA: There is moderate BPH. Seminal vesicles appear normal. OSSEOUS STRUCTURES: Mild degenerative changes are present in the spine most marked at L4-L5. No bony destructive lesions. CT/CT abdomen pelvis w IV con IMPRESSION: 1. A cause for the patient's abdominal pain, distention and vomiting has not been found. 2. Mild emphysema. 3. Prominent liver with minimally nodular border. 4. Soft tissue density at the fundus of the gallbladder which could represent tumefactive sludge or possibly polypoid mass unchanged from prior studies. 5. Bilateral nonobstructing nephrolithiasis. 6. Severe atherosclerotic changes in the aorta and iliofemoral vessels with left external iliac artery stent. 7. Moderate BPH. 8. Degenerative changes in the spine. Fleischner guidelines were followed. Dictated By: Chava Hobson MD Signed By: <Electronically signed by Chava Hobson MD in [place]> 10/21/232055 DD/ 23 TD/TT: Railroad Car Cleaner: [place] [id number] CT Scan Report Signed Patient: Radha Perdomo MR#: [id number] 680 : 1940 Acct:[id number] Age/Sex: 83 / M ADM Date: 10/21/23 Loc: HO.ED Attending Dr: Ordering Physician: Blake Morales MD Date of Service: 10/21/23 Procedure(s): CT abd omen pelvis w IV con Accession Number(s): [id number] cc: Jemal Bustillos MD; Blake Morales MD EXAMINATION: CT ABDOMEN AND PELVI S WITH CONTRAST CLINICAL INFORMATION: Abdominal pain, distention and vomiting COMPARISON: Ultrasound abdomen earlier today, CT abdomen pelvis 09/08/2023, CT chest 10/02/2023 TECHNIQUE: Multidetector volume tric images were obtained from the superior aspect of the liver through the pubic symphysis following administration 85 mL of Omnipaque 350 intravenous contrast. Sagittal and coronal reformatted images were obtained on the technologist's workstation. Oral contrast: No This CT examination was performed using dose optimization techniques as appropriate, various ly including the following: *Automated exposure control *Adjustment of mA an d/or kV according to patient size (this includes techniques or standardized protocols for targeted exams where dose is matched to indication/reason for exam; i.e. extremities or head) *Use of iterative reconstruction technique DLP: 307 mGy-cm FINDINGS: LUNG BASES: Mild emphysematous changes are seen. No worrisome lung mass, infiltrate or effusion is seen. LIVER, GALLBLADDER, AND BILIARY TREE: The liver is prominent in size at 17 mm with a minimal ly nodular border. No focal hepatic lesion or biliary ductal dilatation is present. At the fundus of the gallbladder, there is a soft tiss ue density seen which has been seen on prior CT scans as well as the most recent abdominal CT. This could represent tumefactive sludge o r possibly polypoid mass. Otherwise, the gallbladder is unremarkable with no evidence of radiopaque or obvious pericholecystic inflammatory changes. PANCREAS: Unremarkable. SPLEEN: Unremarkable. ADRENAL GLANDS: Unremarkable. KIDNEYS AND URETERS: The kidneys are normal in size, shape, and attenuation. Multipl e bilateral benign Bosniak class I renal cysts are noted, the largest measuring 4.4 cm on the left which require no additional imaging o r follow-up. No solid renal masses are seen. Is bilateral nonobstruc ting nephrolithiasis present which has been seen in the past. Largest st ones measure 4 mm in the mid left kidney and 7 mm at the left lower po le. No hydronephrosis, hydroureter, or ureteral calculi seen. There is bilateral nonspecific perinephric stranding. BLADDER: Unremarkable. GASTROINTESTINAL TRA CT: The small and large bowel are unremarkable. The appendix is not seen but there is no evidence of appendicitis evidence of appendicitis. ABDOMINAL WALL: No significant hernia is appreciated. LYMPH NODES: No retroperitoneal lymphadenopathy. VASCULAR: Severe calcific and noncalcific atherosclerotic changes are present in the aorta and iliofemoral vessels. A left external iliac artery stent is pres ent. Significant peripheral vascular disease is present. There is no evidence of an abdominal aortic aneurysm. PELVIC VISCERA: Ther e is moderate BPH. Seminal vesicles appear normal. OSSEOUS STRUCTURES: Mild degenerative changes are present in the spine most marked at L4-L5 . No bony destructive lesions. C T/CT abdomen pelvis w IV con IMPRESSION: 1. A cause for the patient's abdominal pain, distention and vomiting has not been found. 2. Mild emphysema. 3. Prominent liver w ith minimally nodular border. 4. Soft tissue densi ty at the fundus of the gallbladder which could represent tumefactiv e sludge or possibly polypoid mass unchanged from prior studies. 5. Bilateral nonobstructing nephrolithiasis. 6. Severe atherosclerotic changes in the aorta and iliofemoral vessels with left external i liac artery stent. 7. Moderate BPH. 8. Degenerative chirinos ges in the spine. Fleischner guideline s were followed. Dictated By: Chava Hobson MD Signed By: <Electronically signed by Chava Hobson MD in [place]> 10/21/232055 DD/ 23 TD/TT: Audit Practice Intern ist: SS US abdomen limited Reviewed date:10/22/2023 11:05:05 AM Interpretation: Performing Lab: Notes/Report: [address] [address] Ultrasound Report Signed Patient: Antolin Perdomo MR#: [id number] 680 : 1940 Acct:[id number] Age/Sex: 83 / M ADM Date: 10/21/23 Loc: HO.ED Attending Dr: Ordering Physician: Nasrin Alfaro Date of Service: 10/21/23 Procedure(s): US abdomen limited Accession Number(s): [id number] cc: Jemal Bustillos MD; Nasrin Alfaro EXAMINATION: US ABDOMEN LIMITED CLINICAL INFORMATION: Cholelithiasis. Query cholecystitis. COMPARISON: Ultrasound dated 09/14/2023. Ultrasound abdomen dated 09/03/2023. TECHNIQUE: Real-time imaging of the right upper quadrant abdominal viscera. FINDINGS: PANCREAS: The visualized pancreas is normal in appearance. LIVER: The liver is normal in size. The liver contour is normal. Parenchymal echogenicity is increased. No focal hepatic lesion. There is no intrahepatic biliary duct dilatation seen. GALLBLADDER: The gallbladder is contracted. Evaluation is markedly limited. There is no pericholecystic fluid. Again seen is an echogenic, avascular lesion measuring 1.4 x 0.9 x 0.8 cm within the fundus of the gallbladder. COMMON BILE DUCT: Normal in caliber measuring 0.3 cm in diameter. FREE FLUID: None. US/US abdomen limited IMPRESSION: The gallbladder is contracted, limiting evaluation. There is no pericholecystic fluid. The sonographic Carter sign is reported as negative. Again seen is an echogenic, avascular lesion measuring up to 1.4 cm within the fundus of the gallbladder. The etiology of this remains uncertain. It could represent tumefactive sludge. The liver is steatotic. Dictated By: Gavin Shafer Jr, DO Signed By: <Electronically signed by Gavin Shafer Jr, DO in [place]> 10/21/23 1416 DD/ 1232 TD/TT: Railroad Car Cleaner: EM[place] [id number] Ultrasound Report Signed Patient: Radha Perdomo MR#: [id number] 680 : 1940 Acct:[id number] Age/Sex: 83 / M ADM Date: 10/21/23 Loc: HO.ED Attending Dr: Ordering Physician: Nasrin Alfaro Date of Service: 10/21/23 Procedure(s): US abd omen limited Accession Number(s): [id number] cc: Jemal Bustillos MD; Nasrin Aflaro EXAMINATION: US ABDOMEN LIMITED CLINICAL INFORMATION: Cholelithiasis. Quer y cholecystitis. COMPARISON: Ultrasound dated 09/14/2023. Ultrasound abdomen d ated 09/03/2023. TECHNIQUE: Real-time imaging of the right upper quadrant abdominal viscera. FINDINGS: PANCREAS: The visual ized pancreas is normal in appearance. LIVER: The liver is normal in size. The liver contour is normal. Parenchymal echogeni city is increased. No focal hepatic lesion. There is no intrahepatic biliary duct dilatation seen. GALLBLADDER: The gallbladder is contracted. Evaluation is markedly limited. There is no pericholecystic fluid. Again seen is an echogenic, avascular lesion measuring 1.4 x 0.9 x 0.8 cm within the fundus of the gallbladder. COMMON BILE DUCT: No rmal in caliber measuring 0.3 cm in diameter. FREE FLUID: None. U S/US abdomen limited IMPRESSION: The gallbladder is contracted, limiting evaluation. There is no pericholecystic flui d. The sonographic Carter sign is reported as negative. Again seen is an echogenic, avascular lesion measuring up to 1.4 cm within the fu ndus of the gallbladder. The etiology of this remains uncertain. I t could represent tumefactive sludge. The liver is steatotic. Dictated By: Gavin Shafer Jr, DO Signed By: <Electronically signed by Gavin Shafer Jr, DO in [place]> 10/21/23 1416 DD/ 1232 TD/TT: Audit Practice Intern ist: CB Complete Blood Count Auto Di ff Reviewed date:03/13/2024 07:51:08 AM Interpretation: Performing Lab:[facility], [address] [place] [phone] Notes/Report: White Blood Count 9.7 4.8-10.8 X10*3/uL Red Blood Count 3.85 4.60-5.80 X10*6/uL Hemoglobin 12.0 14.0-18.0 g/dl Hematocrit 37.2 42.0-52.0 % Mean Corpuscular Volume 96.6 80.0-98.0 fL Mean Corpuscular Hemoglobin 31.2 27.0-33.0 pg Mean Corpuscular HGB Conc 32.3 31.0-36.0 g/dl Red Cell Distribution Width 14.6 11.0-16.0 % Platelet Count 304 160-400 X10*3/uL Mean Platelet Volume 10.2 9.4-12.4 fL Neutrophils Percent Auto 61.5 45-73 % Imm Gran Pct Auto 0.5 0.0-0.4 % Lymphocytes Percent Auto 26.6 20-40 % Monocytes Percent Auto 8.5 2-11 % Eosinophils Percent Auto 2.5 0-4 % Basophils Percent Auto 0.4 0-2 % NRBC Pct Auto 0.0 0.0-0.2 /100WBC Neutrophils Absolute Auto 6.0 2.0-8.3 x10*3/uL Imm Gran Abs Auto 0.05 0.00-0.03 X10*3/uL Lymphocytes Absolute Auto 2.6 1.2-4.9 X10*3/uL Monocytes Absolute Auto 0.8 0.1-1.2 X10*3/uL Eosinophils Absolute Auto 0.2 0.0-0.4 X10*3/uL Basophils Absolute Auto 0.0 0.0-0.2 X10*3/uL NRBC Abs Auto 0.000 0.0-0.012 X10*3/uL Comprehensive Met. Panel Reviewed date:03/13/2024 07:51:08 AM Interpretation: Performing Lab:[facility], [address] [place] [phone] Notes/Report: Sodium 139 135-145 mmol/L Potassium 5.5 3.3-5.1 mmol/L Chloride 109 96-108 mmol/L Carbon Dioxide 22 22-29 mmol/L Anion Gap 14 12-20 Blood Urea Nitrogen 26 9-16 mg/dL Creatinine 1.13 0.5-1.4 mg/dL Estimated Glomerular Filt Rate > 60 NOTE: For -Wallisian individuals, multiply the result by 1.210. Chronic Kidney Disease: Estimated GFR < 60 mL/min/1.73m2 Severe Kidney Disease: Estimated GFR < 15 mL/min/1.73m2 Glucose Random 126 60-115 mg/dL Calcium 9.6 8.4-10.2 mg/dL Bilirubin Total 0.3 0.0-1.0 mg/dL Aspartate Amino Transferase 30 5-37 U/L Alanine Aminotransferase 70 0-40 U/L Total Protein 6.9 6.5-8.0 g/dL Albumin Level 4.2 3.5-5.0 g/dL Alkaline Phosphatase 92 39-117 U/L Lipid Panel Reviewed date:03/13/2024 07:51:08 AM Interpretation: Performing Lab:[facility], [address] [place] [phone] Notes/Report: Triglycerides 174 <150 mg/dL Desirable Triglyceride: less than 150 mg/dL Borderline High Triglyceride 150-199 mg/dL High Triglyceride: 200-499 mg/dL Very High Triglyceride: greater than or equal to 5OO mg/dL Cholesterol 101 <200 mg/dL Desirable Cholesterol: less than 200 mg/dL Borderline High Cholesterol: 200-239 mg/dL High Cholesterol: greater than 239 mg/dL LDL Cholesterol Calculated 38 <100 mg/dL Desirable LDL: less than 100 mg/dL Near Optimal/Above Optimal LDL: 110-129 mg/dL Borderline High LDL: 130-159 mg/dL High LDL: 160-189 mg/dL Very High LDL: greater than or equal to 190 mg/dL HDL Cholesterol 29 >40 mg/dL Desirable HDL: greater than 40 mg/dL Note: This HDL assay may give artificially low results in patients with liver disease. Basic Metabolic Panel Reviewed date:03/13/2024 07:51:08 AM Interpretation: Performing Lab:[address] [phone] Notes/Report: Sodium 137 135-145 mmol/L Potassium 5.3 3.3-5.1 mmol/L Chloride 106 96-108 mmol/L Carbon Dioxide 24 22-29 mmol/L Anion Gap 12 12-20 Blood Urea Nitrogen 29 9-16 mg/dL Creatinine 1.05 0.5-1.4 mg/dL Estimated Glomerular Filt Rate > 60 NOTE: For -Wallisian individuals, multiply the result by 1.210. Chronic Kidney Disease: Estimated GFR < 60 mL/min/1.73m2 Severe Kidney Disease: Estimated GFR < 15 mL/min/1.73m2 Glucose Random 338 60-115 mg/dL Calcium 9.6 8.4-10.2 mg/dL Magnesium Reviewed date:03/13/2024 07:51:08 AM Interpretation: Performing Lab:[facility], [address] [place] [phone] Notes/Report: Magnesium 1.9 1.6-2.6 mg/dL Complete Blood Count Auto Di ff Reviewed date:05/06/2024 06:59:37 AM Interpretation: Performing Lab:[address] [phone] Notes/Report: White Blood Count 11.6 4.8-10.8 X10*3/uL Red Blood Count 3.86 4.60-5.80 X10*6/uL Hemoglobin 12.1 14.0-18.0 g/dl Hematocrit 36.2 42.0-52.0 % Mean Corpuscular Volume 93.8 80.0-98.0 fL Mean Corpuscular Hemoglobin 31.3 27.0-33.0 pg Mean Corpuscular HGB Conc 33.4 31.0-36.0 g/dl Red Cell Distribution Width 14.8 11.0-16.0 % Platelet Count 328 160-400 X10*3/uL Mean Platelet Volume 10.0 9.4-12.4 fL Neutrophils Percent Auto 72.8 45-73 % Imm Gran Pct Auto 0.5 0.0-0.4 % Lymphocytes Percent Auto 17.8 20-40 % Monocytes Percent Auto 6.1 2-11 % Eosinophils Percent Auto 2.5 0-4 % Basophils Percent Auto 0.3 0-2 % NRBC Pct Auto 0.0 0.0-0.2 /100WBC Neutrophils Absolute Auto 8.5 2.0-8.3 x10*3/uL Imm Gran Abs Auto 0.06 0.00-0.03 X10*3/uL Lymphocytes Absolute Auto 2.1 1.2-4.9 X10*3/uL Monocytes Absolute Auto 0.7 0.1-1.2 X10*3/uL Eosinophils Absolute Auto 0.3 0.0-0.4 X10*3/uL Basophils Absolute Auto 0.0 0.0-0.2 X10*3/uL NRBC Abs Auto 0.000 0.0-0.012 X10*3/uL Comprehensive Met. Panel Reviewed date:05/06/2024 06:59:37 AM Interpretation: Performing Lab:[facility], [address] [place] [phone] Notes/Report: Sodium 135 135-145 mmol/L Potassium 4.9 3.3-5.1 mmol/L Chloride 102 96-108 mmol/L Carbon Dioxide 25 22-29 mmol/L Anion Gap 13 12-20 Blood Urea Nitrogen 28 9-16 mg/dL Creatinine 1.23 0.5-1.4 mg/dL Creatinine Clr Calc Pharmacy 41.4 eGFR (calculated from the MDRD study equation) and eCrCl (calculated from the Cockcroft-Gault equation) are based on different parameters and may not yield comparable results. If eCrCl result is absurd, please check patient's height/weight. Estimated Glomerular Filt Rate 56 Chronic Kidney Disease: Estimated GFR < 60 mL/min/1.73m2 Severe Kidney Disease: Estimated GFR < 15 mL/min/1.73m2 Glucose Random 309 60-115 mg/dL Calcium 8.8 8.4-10.2 mg/dL Bilirubin Total 0.4 0.0-1.0 mg/dL Aspartate Amino Transferase 67 5-37 U/L Alanine Aminotransferase 182 0-40 U/L Total Protein 6.4 6.5-8.0 g/dL Albumin Level 3.7 3.5-5.0 g/dL Alkaline Phosphatase 92 39-117 U/L Urine Culture Reviewed date:05/06/2024 06:59:37 AM Interpretation: Performing Lab:[address] [phone] Notes/Report: Urine Culture Report Result Urine Culture 10,000 to 50,000 cfu/ml Urine Culture Mixed bacterial lisa a characteristic of Urine Culture urogenital contamination. SARS-CoV2/FLU/RSV Reviewed date:05/06/2024 06:59:37 AM Interpretation: Performing Lab:[address] [phone] Notes/Report: Influenza A PCR NEGATIVE Negative Influenza B PCR NEGATIVE Negative Resp Syncy Virus RNA Qual PCR NEGATIVE Negative SARS COV2 PCR INHOUSE NEGATIVE Negative All test results must be correlated with clinical findings. Negative results do not preclude SARS-CoV2, influenza A virus, influenza B virus and/or RSV infection and should not be used as the sole basis for treatment or other patient management decisions. Negative results must be combined with clinical observations, patient history, and epidemiological information. This test has not been evaluated for monitoring treatment of infection. This test has been authorized by the FDA under an Emergency Use Authorization (EUA) for use by authorized laboratories. Testing performed on the [employer] GeneXpert utilizing real-time RT-PCR. All SARS CoV2 and positive influenza A/B results are reported to [facility]. UA ClnCatch+Micro w/rflx Cul t Reviewed date:05/06/2024 06:59:37 AM Interpretation: Performing Lab:[address] [phone] Notes/Report: [id number] Urine, Clean Catch Color Urine Yellow Appearance Urine Clear PH 5.0 5.0-9.0 Glucose Urine UA 250 Negative mg/dL Urine Blood Negative Negative Specific [place] - Urine 1.015 1.005-1.025 Urine Protein 30 (1+) Neg-Trace mg/dL Urine Ketones Negative Negative mg/dL Nitrite Urine Negative Negative Leukocyte Esterase Urine Small (1+) Negative RBC Urine 0-2 0-2 /HPF WBC Urine 11-20 0-5 /HPF Squamous Epithelial Cell Urine 0-2 0-2 /HPF Bacteria Urine None Seen None Seen Hyaline Casts Urine 0-2 0-2 /LPF US abdomen limited Reviewed date:05/06/2024 06:59:37 AM Interpretation: Performing Lab: Notes/Report: [address] [address] Ultrasound Report Signed Patient: Antolin Perdomo MR#: [id number] 680 : 1940 Acct:[id number] Age/Sex: 83 / M ADM Date: 05/04/24 Loc: HO.ED Attending Dr: Ordering Physician: Denia Luong MD Date of Service: 05/04/24 Procedure(s): US abdomen limited Accession Number(s): [id number] cc: Denia Luong MD; Jemal Bustillos MD EXAMINATION: US ABDOMEN LIMITED CLINICAL INFORMATION: Right upper quadrant pain. Flank pain.. COMPARISON: Ultrasound limited dated October 21, 2023. TECHNIQUE: Real-time imaging of the right upper quadrant abdominal viscera using grayscale and color Doppler technique. FINDINGS: Limited examination. Multiple layering hyperechoic lesions within the gallbladder lumen with posterior shadowing. Gallbladder wall measures 3 mm. No pericholecystic fluid collection. Common bile duct measures 3 mm. Right kidney measures 11 cm with normal echotexture. No hydronephrosis. There is a 3 cm exophytic lobulated isoechoic lesion without flow on color Doppler interrogation. No gross ascites. US/US abdomen limited IMPRESSION: Cholelithiasis and up to normal limits gallbladder wall. 3 cm exophytic lesion, upper pole right kidney, nonspecific. According to prior CT October 21, 2023 this lesion is cystic. No ascites. 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 Flank pain.. COMPARISON: Ultrasound limited d ated October 21, 2023. TECHNIQUE: Real-time imaging of the right upper quadrant abdominal viscera using grayscale and color Doppler technique. FINDINGS: Limited examination. Multiple layering hyperechoic lesions within the gallbladder lumen with posterior shadowing. Gallbladder wall measures 3 mm. No pericholecystic fluid collection. Common bile duct measures 3 mm. Right kidney measure s 11 cm with normal echotexture. No hydronephrosis. There is a 3 cm exophytic lobulated isoechoic lesion without flow on color Doppler interrogation. No gross ascites. U S/US abdomen limited IMPRESSION: Cholelithiasis and u p to normal limits gallbladder wall. 3 cm exophytic lesio n, upper pole right kidney, nonspecific. According to prior CT October 21, 2023 this lesion is cystic. No ascites. Electronically carter d by: Polo Riley MD 05/04/2024 02:21 PM [facility] Dictated By: Polo Camacho MD Signed By: <Electronically signed by Polo Weeks MD in OV> 05/04/24 1421 DD/ 1317 TD/TT: 05/04/24 1324 [employer]er: XR chest 2V Reviewed date:05/06/2024 06:59:37 AM Interpretation: Performing Lab: Notes/Report: [address] [address] XRay Report Signed Patient: Antolin Perdomo MR#: [id number] 680 : 1940 Acct:[id number] Age/Sex: 83 / M ADM Date: 05/04/24 Loc: HO.ED Attending Dr: Ordering Physician: Denia Luong MD Date of Service: 05/04/24 Procedure(s): XR chest 2V Accession Number(s): [id number] cc: Denia Luong MD; Jemal Bustillos MD EXAMINATION: XR CHEST CLINICAL INFORMATION: SOB, congestion COMPARISON: 10/01/2023, 09/21/2023, 05/22/2023. TECHNIQUE: 2 views of the chest were obtained. FINDINGS: There is mild rightward rotation. The cardiac, hilar, and mediastinal contours are normal. The lungs diffusely hyperaerated, and mildly hyperlucent, consistent with COPD. They are otherwise clear. There is no pneumothorax or pleural effusion. There is no focal osseous or soft tissue abnormality. Mild spinal degenerative changes. XR/XR chest 2V IMPRESSION: COPD. No active superimposed disease. Electronically signed by: Danny Go MD 05/04/2024 11:13 AM [facility] Dictated By: Danny Go MD Signed By: <Electronically signed by Danny Go MD in OV> 05/04/24 1113 DD/ 1048 TD/TT: 05/04/24 1108 [employer]er: [place] [address] XRay Report Signed Patient: Radha Perdomo MR#: [id number] 680 : 1940 Acct:[id number] Age/Sex: 83 / M ADM Date: 05/04/24 Loc: HO.ED Attending Dr: Ordering Physician: Denia Luong MD Date of Service: 05/04/24 Procedure(s): XR [address] st 2V Accession Number(s): [id number] cc: Denia Luong MD ; Jemal Bustillos MD EXAMINATION: XR CHEST CLINICAL INFORMATION: SOB, congestion COMPARISON: 10/01/2023, 09/21/2023, 05/22/2023. TECHNIQUE: 2 views of the chest were obtained. FINDINGS: There is mild rightw harley rotation. The cardiac, hilar, and mediastinal contours are normal. The lungs diffusely hyperaerated, and mildly hyperlucent, consistent with COPD. They are otherwise clear. There is no pneumothorax or pleural effusion. There is no focal osseous or soft tissue abnormality. Mild spinal degenerative changes. X R/XR chest 2V IMPRESSION: COPD. No active superimposed disease. Electronically carter d by: Danny Go MD 05/04/2024 11:13 AM EST RP Dictated By: Danny Go MD Signed By: <Electronically signed by Danny Go MD in OV> 05/04/24 1113 DD/ 1048 TD/TT: 05/04/24 1108 [employer]er: US bladder Reviewed date:05/30/2024 11:42:26 AM Interpretation: Performing Lab: Notes/Report: [address] [address] Ultrasound Report Signed Patient: Antolin Perdomo MR#: [id number] 680 : 1940 Acct:[id number] Age/Sex: 84 / M ADM Date: 05/18/24 Loc: HO.US Attending Dr: Lse Alcantar MD Ordering Physician: Les Alcantar MD Date of Service: 05/18/24 Procedure(s): US bladder Accession Number(s): [id number] cc: Les Alcantar MD; Jemal Bustillos MD EXAMINATION: US PELVIS LIMITED (BLADDER) CLINICAL INFORMATION: Benign prostatic hyperplasia without lower urinary tract symptoms. COMPARISON: Limited ultrasound abdomen of 05/04/2024, ultrasound abdomen 09/14/2023, ultrasound abdomen 10/21/2023 TECHNIQUE: Real-time imaging of the bladder. FINDINGS: BLADDER: Well-distended. Bilateral ureteral jets are demonstrated. Prevoid bladder volume is 150 mL. Postvoid bladder volume is 65 mL. Prostate volume 25 mL. Echogenic foci within the prostate gland are characteristic of coarse calcifications. US/US bladder IMPRESSION: Postvoid bladder volume is 65 mL. Prostate volume 25 mL. Echogenic foci within the prostate gland are characteristic of coarse calcifications. . 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 [address] Ultrasound Report Signed Patient: Radha Perdomo MR#: [id number] 680 : 1940 Acct:[id number] Age/Sex: 84 / M ADM Date: 05/18/24 Loc: HO.US Attending Dr: Geovanni Rascon MD Ordering Physician: Les Alcantar MD Date of Service: 05/18/24 Procedure(s): US bladder Accession Number(s): [id number] cc: Les Alcantar MD; Jemal Bustillos MD EXAMINATION: US PELVIS LIMITED (BLADDER) CLINICAL INFORMATION: Benign prostatic hyperplasia without lower urinary tract symptoms. COMPARISON: Limited ultrasound abdomen of 05/04/2024, ultrasound abdomen 09/14/2023, ultrasound abdomen 10/21/2023 TECHNIQUE: Real-time imaging of the bladder. FINDINGS: BLADDER: Well-disten ded. Bilateral ureteral jets are demonstrated. Prevoid bladder volu me is 150 mL. Postvoid bladder volume is 65 mL. Prostate volume 25 m L. Echogenic foci within the prostate gland are characteristic of co arse calcifications. U S/US bladder IMPRESSION: Postvoid bladder vol ume is 65 mL. Prostate volume 25 m L. Echogenic foci within the prostate gland are characteristic of co arse calcifications. . Electronically carter d by: Lana Borja MD 05/28/2024 09:01 AM EST Dictated By: Lana Borja MD Signed By: <Electronically signed by Lana Borja MD in OV> 05/28/24 09 DD/ 16 TD/TT: 05/18/24 1426 [employer] Cleaner: Glucose, Whole Blood Reviewed date:05/26/2024 04:19:01 PM Interpretation: Performing Lab:[facility], [address] [place] [phone] Notes/Report: Glucose, Whole Blood 49 60-115 mg/dL METER # : [id number] Pathology Reviewed date:05/30/2024 11:42:26 AM Interpretation: Performing Lab:[facility], [address] [place] [address], [place] [address] Notes/Report: ---- Name: Antolin Perdomo Age/Sex: 84/M : 1940 Unit#: [id number] Attend Dr: Paulino Garcia MD Re05/26/24 Status : [facility] Location: [facility] Disch: ---- SPEC : [id number] RECD : 05/26/24 STATUS: ZACKARY RIVASCallum NUM: [id number] KRYSTAL: 05/26/[address] [facility] [address]: Paulino Garcia MD ENTERED: 05/26/24 57 SP TYPE: Surgical OTHR DR: Jemal Bustillos MD ORDERED: Gross Micro L3 Diagnosis Gallbladder, cholecystectomy: Chronic cholecystitis with cholelithiasis. Clinical History Pre-Op Dx: Calculus of bile duct without cholangitis or cholecystitis without obstruction Post-Op Dx: Symptoma tic gallbladder Microscopic Description Microscopic sections reviewed. Material Received Gallbladder Gross Description Received in formalin labeled ?gallbladder? is a 6.5 x 2.5 x 2.0 cm smooth and shaggy, johnson- pink and blue-purple gallbladder resected in continuity with 0.35 cm of clipped yet patent cystic duct. Upon opening the gallbladder contains copious yellow-green bile and 5 multifaceted friable black choleliths ranging from 0.4-0.6 cm, 1 of which is lodged within the neck of the gallbladder. The mucosa is finely reticulated, velvety, johnson. On sectioning wall is edematous, johnson-white and measures up to 0.15 cm in thickness. Manager Intensive Care sections are submitt ed in a cassette labeled A1 to include the margin of resection of the cystic duct. CEDS Copies To: Jemal Bustillos MD [address] [facility], [address] [place], [place] [id number] Paulino Garcia MD [facility] [place] [facility] [address] [place], [place] [id number] [email or web address] CONTINUED ON NEXT PAGE ---- Name: Antolin Perdomo Age/Sex: 84/M : 1940 Unit#: [id number] Attend Dr: Paulino Garcia MD Re05/26/24 Status : [facility] Location: [facility] Disch: ---- SPEC : [id number] RECD : 05/26/24 STATUS: ZACKARY GILL NUM: [id number] KRYSTAL: 05/26/[address] [facility] [address]: Paulino Garcia MD ENTERED: 05/26/24 SP TYPE: Surgical OTHR DR: Jemal Bustillos MD ORDERED: Gross Micro L3 ---- Signed (signature on file) Katya Baltimore 05/29/24 1255 ---- END OF REPORT Glucose, Whole Blood Reviewed date:05/26/2024 04:19:01 PM Interpretation: Performing Lab:[facility], [address] [place] [phone] Notes/Report: Glucose, Whole Blood 185 60-115 mg/dL METER # : [id number] Glucose, Whole Blood Reviewed date:05/26/2024 04:19:01 PM Interpretation: Performing Lab:[facility], [address] [place] [phone] Notes/Report: Glucose, Whole Blood 180 60-115 mg/dL METER # : [id number] Diabetic Eye Exam Reviewed date:07/24/2024 02:48:35 PM Interpretation:undefined Performing Lab: Notes/Report: undefined Glucose, Whole Blood Reviewed date:08/05/2024 09:22:41 AM Interpretation: Performing Lab:[facility], [address] [place] [phone] Notes/Report: Glucose, Whole Blood 131 60-115 mg/dL METER # : [id number] Pathology Reviewed date:08/05/2024 09:22:41 AM Interpretation: Performing Lab:[facility], [address] [place] [address] [place] [address] Notes/Report: ---- Name: Antolin Perdomo Age/Sex: 84/M : 1940 Unit#: [id number] Attend Dr: Les Alcantar MD Re07/24/24 Status : [facility] Location: [facility] Disch: ---- SPEC : [id number] RECD: 07/24/24-1312 STATUS: ZACKARY GILL NUM: [id number] KRYSTAL: 07/24/24-[address] [facility] [address]: Les Alcantar MD ENTERED: 07/24/24-13 18 SP TYPE: Surgical OTHR DR: Jemal Bustillos MD ORDERED: Gross Micro L4 Diagnosis Prostate, transureth ral resection: 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 Material Received Prostate Gross Description Received in formalin labeled ?prostate? are 2 diffusely cauterized, rubbery, porter-johnson and johnson-pink fragments o f fibromuscular tissue measuring 0.7 and 1.4 cm in greatest dimension. The largest fragment is sectioned and the specimen is entirely submitted in a cassette labeled A. CEDS This case was review ed intradepartmentally. Copies To: Les Alcantar MD [facility] [place] [facility] [address] [address] Jemal Bustillos MD [address] [place] [address], [facility] [address] [address] ---- Signed (signature on file) Rocky Stacy MD 07/26/24 1426 ---- END OF REPORT Reason For Referral Reason Evaluate and Treat Severe Left Dupuytren Left 4th and 5th finger Diagnosis 1 Dupuytrens contractu re (M72.0) Referral Organization Jemal Bustillos III, MD Referring Provider First Name Jemal Referring Provider Last Name Tressa Referring Provider Speciality Internal M edicine Referred Provider Kathie Guerrero Referred Provider Specialty Hand Surgery General Notes [facility] >Referral faxed. Pt is aware. Referral Priority Routine Medications Medication SIG (Take, Route, Frequency, Duration) Notes Start Date End Date Status predniSONE 20 MG 1 tablet with food or milk Orally Once a day 09/21/2023 Active Albuterol Sulfate HFA 108 (90 Base) MCG/ACT 1 puff as needed Inhalation every 4 hrs 09/21/2023 Active Famotidine 20 MG 1 tablet at bedtime as needed Orally Once a day Active Clopidogrel Bisulfate 75 MG 1 tablet Orally Once a day Active glyBURIDE 5 MG TAKE 2 TABLETS BY MOUTH EVERY MORNING Patient has Insurance [place] approval from 07/05/2024- Active Loratadine 10 MG 1 tablet Orally Once a day Active metFORMIN HCl 1000 MG TAKE 1 TABLET BY MOUTH TWICE A DAY FOR 30 DAYS Active Tamsulosin HCl 0.4 MG Oral Active Aspirin Adult Low Dose 81 MG 1 tablet Orally Once a day Active Pioglitazone HCl 15 MG 1 tablet Orally Once a day 04/06/2024 Active Lisinopril 30 MG 1 tablet Orally Once a day 04/14/2023 Active Fluticasone Furoate 27.5 MCG/SPRAY 2 sprays (1 spray in each nostril) Nasally Once a day 06/07/2024 Active Metoprolol Succinate ER 25 MG 1 tablet Orally Once a day 07/08/2023 Active Meclizine HCl 25 MG 1 tablet as needed Orally every 12 hrs 06/27/2024 Active Omeprazole 20 MG 1 capsule 30 minutes before morning meal Orally twice a day 07/23/2023 Active Atorvastatin Calcium 20 MG 1 tablet Orally Once a day Active Immunizations Vaccine Route Administration Date Status Comme nts COVID- 19 Vaccine Unknown 09/21/2020 Administered COVID- 19 Vaccine Unknown 10/18/2020 Administered RSV vaccine, bivalent, prote in subunit RSV prefusion F Unknown 04/30/2023 Administered Influenza, quad Unknown 05/20/2023 Administered Social History Tobacco Use: Social History Observation [...] Never (0 point) Points 1 Interpretation Negative Problems Problem Type SNOMED Code ICD Code Onset Dates Problem Status W/U Status Risk Notes Problem 96508116 Hyperlipidemia (E78.5) Active confirmed His lipids are stable. A repeat fasting lipid profile will be done periodically. No change in his regimen was necessary today. Problem 621101036 Underweight (R63.6) Active confirmed His weight has recently been stable in and underweight range. Because of his weight loss will be investigated. It is likely COPD. Problem 14561103 Type 2 diabetes mellitus without complications (E11.9) Active confirmed He has been continued on his current regimen without change. His glucose levels have been acceptable. He has been compliant with his treatment and diet. Problem Chronic obstructive pulmonary disease (19505119) Chronic obstructive pulmonary disease, unspecified (J44.9) Active confirmed He is trying to stop smoking. He continues to consume 10 cigarettes daily. He is comfortable breathing room air. He has been compliant with his medications. Problem 83088485 Calculus of ureter (N20.1) Active confirmed A stent has b een inserted and then removed. The stone was removed and was calcium oxalate. It is free of pain at this time, but weakened and has lost 5 pounds with his recent surgery and hospitalization. Problem Calculus of kidney with calculus of ureter (066599181) Calculus of kidney with calculus of ureter (N20.2) Active confirmed He has had no renal colic since his last visit. He denies hematuria. Problem 028056797 GERD without esophagitis (K21.9) Active confirmed His reflux symptoms have been well controlled with medication. He has been sleeping through the night lately. Problem 77633562 Essential hypertension (I10) Active confirmed His blood pressure is currently stable at 142/62 and no change in his regimen was necessary. Problem 73242999 Tobacco dependence (F17.200) Active confirmed He continues to smoke about 10 cigarettes per day. I discussed smoking cessation with him at great length today. Problem 11896712 COPD (chronic obstructive pulmonary disease) (J44.9) Active confirmed He continue s to smoke about 10 cigarettes daily. He is comfortable breathing room air at rest. At this point he does not need home oxygen. We have discussed smoking cessation strategies at length today. He was offered medications and we'll consider it. Problem 24691137 Hearing loss, bilateral (H91.93) Active confirmed There has been no change in his hearing. He did quite well over the telephone today. Problem 628774802 Pulmonary nodule (R91.1) Active confirmed He has a 7 mm right lower lobe nodule which will be followed carefully. Problem Contracture of palmar fascia (924430288) Dupuytrens contracture (M72.0) Active confirmed He has mild to moderate bilateral Dupuytren's contracture in the palm of each hand. It has become painful in the left hand recently. Problem 985674934 Peripheral arterial disease (I73.9) Active confirmed He continues to have claudication primarily in his left leg. He has seen his vascular surgeon recently. She has operated on the left leg. It is warm today. He complains of pain in his left leg with walking length of the [employer]. Problem 151595028 Cataract (H26.9) Active confirmed Problem 853153966 Lumbar spine pain (M54.5) Active confirmed The back pain i s minimal at this time. I recommended no heavy lifting. His current regimen. We'll continue. Problem 644359817 Complex renal cyst (N28.1) Active confirmed The cyst will b e imaged periodically. Problem 915769109 Abnormal liver function tests (R79.89) Active confirmed The cause of hi s abnormal transaminases enzymes will be sought. Problem 458892693 Acute asthmatic bronchitis (J45.909) Active confirmed He clearly has an antecedent viral syndrome and likely has a bacterial bronchitis. He was given an antibiotic. Follow-up was arranged. Problem 220280516 Benign prostatic hyperplasia, unspecified whether lower urinary tract symptoms present (N40.0) Active confirmed He rises from sleep 3 or 4 times a night to urinate. We have discussed lifestyle modification as a way to reduce nocturia. A prostate procedure has been scheduled by his urologist in the near future. Problem 428405377 S/P cholecystectomy (Z90.49) Active confirmed He underwent a cholecystectomy for acute cholelithiasis 14 days ago. He is now recovering at home. He remains weak but his appetite is fair. Problem 762132331257254 Left carotid artery stenosis (I65.22) Active confirmed He has had an endarterectomy and now has a good pulse in the neck. Problem Atherosclerotic heart disease of [place] coronary artery without angina pectoris (333086318093047 ) Arteriosclerotic coronary artery disease (I25.10) Active confirmed He recently had an angioplasty of the right coronary artery and 2 stents put into the left system May 25, 2023 at [facility]. He says he is unable to tolerate the metoprolol as well as the Brilinta. He has had no angina since his last visit. Vital Signs Heart Rate 78 /min 10/11/2024 Temperature 99.3 degrees Fahrenheit 10/11/2024 Blood pressure diastolic 57 mm Hg 10/11/2024 Height 65 in 10/11/2024 Blood pressure systolic 137 mm Hg 10/11/2024 Weight 128 lbs 10/11/2024 BMI 21.3 kg/m2 10/11/2024 Encounters Encounter Location Date Provider Diagnosis Jemal Bustillos III, MD [address] [place] [address] [place] [address] 11/04/2023 Jemal Bustillos Tobacco dependence F17.200 ; COPD (chronic obstructive pulmonary disease) J44.9 ; Hearing loss, bilateral H91.93 ; Essential hypertension I10 ; Type 2 diabetes mellitus without complications E11.9 ; Benign prostatic hyperplasia, unspecified whether lower urinary tract symptoms present N40.0 and Peripheral arterial disease I73.9 Jemal Bustillos III, MD [address] [place] [address] [place] [address] 04/06/2024 Jemal Bustillos Tobacco dependence F17.200 ; Type 2 diabetes mellitus without complications E11.9 ; Hyperlipidemia E78.5 ; COPD (chronic obstructive pulmonary disease) J44.9 ; Essential hypertension I10 and Nocturia R35.1 Jemal Bustillos III, MD [address] [place] [address] [place] [address] 06/07/2024 Jemal Bustillos Tobacco dependence F17.200 ; COPD (chronic obstructive pulmonary disease) J44.9 ; S/P cholecystectomy Z90.49 ; Essential hypertension I10 ; Type 2 diabetes mellitus without complications E11.9 ; Hyperlipidemia E78.5 ; Complex renal cyst N28.1 ; Benign prostatic hyperplasia, unspecified whether lower urinary tract symptoms present N40.0 ; Calculus of ureter N20.1 ; Hearing loss, bilateral H91.93 and Left carotid artery stenosis I65.22 Jemal Bustillos III, MD [address] [place] [address] [place] [address] 06/27/2024 Jemal Bustillos Tobacco dependence F17.200 ; COPD (chronic obstructive pulmonary disease) J44.9 ; Hearing loss, bilateral H91.93 ; Essential hypertension I10 ; Type 2 diabetes mellitus without complications E11.9 ; Hyperlipidemia E78.5 ; Complex renal cyst N28.1 ; Benign prostatic hyperplasia, unspecified whether lower urinary tract symptoms present N40.0 ; Peripheral arterial disease I73.9 ; Arteriosclerotic coronary artery disease I25.10 ; Underweight R63.6 and Abnormal liver function tests R79.89 Jemal Bustillos III, MD [address] [place] [address] [place] [address] 07/28/2024 Jemal Bustillos Tobacco dependence F17.200 ; Type 2 diabetes mellitus without complications E11.9 ; Hyperlipidemia E78.5 ; Hearing loss, bilateral H91.93 ; GERD without esophagitis K21.9 ; Benign prostatic hyperplasia, unspecified whether lower urinary tract symptoms present N40.0 ; Left carotid artery stenosis I65.22 ; Arteriosclerotic coronary artery disease I25.10 ; Chronic obstructive pulmonary disease, unspecified J44.9 and Complex renal cyst N28.1 Jemal Bustillos III, MD [address] [place] [address] [place] [address] 10/11/2024 Jemal Bustillos Tobacco dependence F17.200 ; [...] disease I25.10 and Peripheral arterial disease I73.9 Jemal Bustillos III, MD [address] [place] [address] [place] [address] 02/08/2024 Jemal Bustillos III, MD [address] [place] [address] [place] [address] 03/14/2024 Jemal Bustillos III, MD [address] [place] [address] [place] [address] 03/15/2024 Jemal Bustillos III, MD [address] [place] [address] [place] [address] 04/10/2024 Jemal Bustillos III, MD [address] [facility] [place] [address] 04/12/2024 Jemal Bustillos III, MD [address] [facility] [place] [address] 04/19/2024 Jemal Bustillos III, MD [address] [facility] [place] [address] 04/21/2024 Jemal Bustillos III, MD [address] [facility] [place] [address] 04/21/2024 Jemal Bustillos III, MD [address] [facility] [place] [address] 04/24/2024 Jemal Bustillos III, MD [address] [facility] [place] [address] 05/02/2024 Jemal Bustillos III, MD [address] [facility] [place] [address] 05/04/2024 Jemal Bustillos III, MD [address] [facility] [place] [address] 2024 Jemal Bustillos III, MD [address] [facility] [place] [address] 06/07/2024 Jemal Busitllos III, MD [address] [facility] [place] [address] 06/15/2024 Jemal Bustillos III, MD [address] [facility] [place] [address] 07/05/2024 Jemal Bustillos Tobacco dependence F17.200 Jemal Bustillos III, MD [address] [facility] [place] [address] 07/12/2024 Jemal Bustillos III, MD [address] [facility] [place] [address] 08/14/2024 Jemal Bustillos Assessments Encounter Date Diagnosis (ICD Code) Assessment Notes T reatment Notes Treatment Clinical Notes 11/04/2023 Tobacco dependence (ICD-10 - F17.200) He resumed smoking a few cigarettes daily. I have counseled him at length today about smoking cessation program. 11/04/2023 COPD (chronic obstructive pulmonary disease) (ICD-10 - J44.9) I have discussed smoking cessation with him. He is short of breath with exertion but comfortable without oxygen at home at rest. He may need to begin oxygen. I have arranged a pulmonary consultation for him. He will notify me immediately if his breathing deteriorates. 04/06/2024 Type 2 diabetes mellitus without complications (ICD-10 - E11.9) He says the metformin began to make an ill she stopped taking it. He is not willing to take it any further. He is taking glyburide. I have added pioglitazone.He will return to the office in 2 weeks after checking his fasting glucose every day. I have ordered a hemoglobin A1c. His glucose was 338 and the recent laboratory data 04/06/2024 Tobacco dependence (ICD-10 - F17.200) He resumed smoking 10 cigarettes daily. I have counseled him at length today about smoking cessation program. 06/07/2024 Tobacco dependence (ICD-10 - F17.200) He resumed smoking 10 cigarettes daily. I have counseled him at length today about smoking cessation program. 06/07/2024 COPD (chronic obstructive pulmonary disease) (ICD-10 - J44.9) He continues to smoke about 10 cigarettes daily. He is comfortable breathing room air at rest. At this point he does not need home oxygen. We have discussed smoking cessation strategies at length today. He was offered medications and we'll consider it. 06/27/2024 Tobacco dependence (ICD-10 - F17.200) He resumed smoking 10 cigarettes daily. I have counseled him at length today about smoking cessation program. 06/27/2024 COPD (chronic obstructive pulmonary disease) (ICD-10 - J44.9) He continues to smoke about 10 cigarettes daily. He is comfortable breathing room air at rest. At this point he does not need home oxygen. We have discussed smoking cessation strategies at length today. He was offered medications and we'll consider it. 07/28/2024 Type 2 diabetes mellitus without complications (ICD-10 - E11.9) He has been continued on his current regimen without change. His glucose levels have been acceptable. He has been compliant with his treatment and diet. 07/28/2024 Tobacco dependence (ICD-10 - F17.200) He resumed smoking 10 cigarettes daily. I have counseled him at length today about smoking cessation program. 10/11/2024 Tobacco dependence (ICD-10 - F17.200) He [...] consider it. We did make a referral. 07/05/2024 Tobacco dependence (ICD-10 - F17.200) He resumed smoking 10 cigarettes daily. I have counseled him at length today about smoking cessation program. 11/04/2023 Hearing loss, bilateral (ICD-10 - H91.93) There has been no change in his hearing. He did quite well over the telephone today. 04/06/2024 Hyperlipidemia (ICD- 10 - E78.5) His triglycerides are elevated. His total cholesterol was 101 and he has been compliant with his medications. 06/07/2024 S/P cholecystectomy (ICD-10 - Z90.49) He underwent a cholecystectomy for acute cholelithiasis 14 days ago. He is now recovering at home. He remains weak but his appetite is fair. 06/27/2024 Hearing loss, bilateral (ICD-10 - H91.93) There has been no change in his hearing. He did quite well over the telephone today. 07/28/2024 Hyperlipidemia (ICD- 10 - E78.5) His lipids are stable. A repeat fasting lipid profile will be done periodically. No change in his regimen was necessary today. 10/11/2024 Dupuytrens contractu re (ICD-10 - M72.0) He has mild to moderate bilateral Dupuytren's contracture in the palm of each hand. It has become painful in the left hand recently. 11/04/2023 Essential hypertensi on (ICD-10 - I10) His blood pressure has come down to a better level and his medications were not changed. It is 140/73. We have discussed sodium restriction at length. A close follow-up was arranged. 04/06/2024 COPD (chronic obstructive pulmonary disease) (ICD-10 - J44.9) He continues to smoke about 10 cigarettes daily. He is comfortable breathing room air at rest. At this point he does not need home oxygen. We have discussed smoking cessation strategies at length today. He was offered medications and we'll consider it. 06/07/2024 Essential hypertensi on (ICD-10 - I10) His blood pressure is currently stable and no change in his regimen was necessary. 06/27/2024 Essential hypertensi on (ICD-10 - I10) His blood pressure is currently stable at 142/62 and no change in his regimen was necessary. 07/28/2024 Hearing loss, bilateral (ICD-10 - H91.93) There has been no change in his hearing. He did quite well over the telephone today. 10/11/2024 Acute diarrhea (ICD- 10 - R19.7) The cause is unclear. No precipitant was identified. He is going to take 2 mg of Imodium every 3 hours. A followup was arranged. 11/04/2023 Type 2 diabetes mellitus without complications (ICD-10 - E11.9) His hemoglobin A1c was most recently 7.8. He has been compliant with medications. His weight is in the normal range. This medication will be adjusted as needed. A repeat hemoglobin A1c as part of comprehensive data will be ordered. 04/06/2024 Essential hypertensi on (ICD-10 - I10) His blood pressure is currently stable and no change in his regimen was necessary. 06/07/2024 Type 2 diabetes mellitus without complications (ICD-10 - E11.9) He says the metformin began to make an ill she stopped taking it. He is not willing to take it any further. He is taking glyburide. I have added pioglitazone.He will return to the office in 2 weeks after checking his fasting glucose every day. I have ordered a hemoglobin A1c. His glucose was 338 and the recent laboratory data 06/27/2024 Type 2 diabetes mellitus without complications (ICD-10 - E11.9) He says the metformin began to make an ill she stopped taking it. He is not willing to take it any further. He is taking glyburide. I have added pioglitazone.He will return to the office in 2 weeks after checking his fasting glucose every day. I have ordered a hemoglobin A1c. His glucose was 338 and the recent laboratory data 07/28/2024 GERD without esophagitis (ICD-10 - K21.9) His reflux symptoms have been well controlled with medication. He has been sleeping through the night lately. 10/11/2024 Type 2 diabetes mellitus without complications (ICD-10 - E11.9) He has been continued on his current regimen without change. His glucose levels have been acceptable. He has been compliant with his treatment and diet. 11/04/2023 Benign prostatic hyperplasia, unspecified whether lower urinary tract symptoms present (ICD-10 - N40.0) He rises from sleep twice a night to urinate. We have discussed lifestyle modification as a way to reduce nocturia. 04/06/2024 Nocturia (ICD-10 - R35.1) He suffers from benign prostatic hypertrophy and is rising from sleep about 3 times a night. He is under the care of a urologist at home. He will see him next week for urodynamic. 06/07/2024 Hyperlipidemia (ICD- 10 - E78.5) His triglycerides are elevated. His total cholesterol was 101 and he has been compliant with his medications. 06/27/2024 Hyperlipidemia (ICD- 10 - E78.5) His triglycerides are elevated. His total cholesterol was 101 and he has been compliant with his medications. 07/28/2024 Benign prostatic hyperplasia, unspecified whether lower urinary tract symptoms present (ICD-10 - N40.0) He rises from sleep 3 or 4 times a night to urinate. We have discussed lifestyle modification as a way to reduce nocturia. A prostate procedure has been scheduled by his urologist in the near future. 10/11/2024 Hearing loss, bilateral (ICD-10 - H91.93) There has been no change in his hearing. He did quite well over the telephone today. 11/04/2023 Peripheral arterial disease (ICD-10 - I73.9) He continues to have claudication primarily in his left leg. He has seen his vascular surgeon recently. She has operated on the left leg. It is warm today. He complains of pain in his left leg with walking length of the [employer]. 06/07/2024 Complex renal cyst (ICD-10 - N28.1) The cyst will be imaged periodically. 06/27/2024 Complex renal cyst (ICD-10 - N28.1) The cyst will be imaged periodically. 07/28/2024 Left carotid artery stenosis (ICD-10 - I65.22) He has had an endarterectomy and now has a good pulse in the neck. 10/11/2024 COPD (chronic obstructive pulmonary disease) (ICD-10 - J44.9) He continues to smoke about 10 cigarettes daily. He is comfortable breathing room air at rest. At this point he does not need home oxygen. We have discussed smoking cessation strategies at length today. He was offered medications and we'll consider it. 06/07/2024 Benign prostatic hyperplasia, unspecified whether lower urinary tract symptoms present (ICD-10 - N40.0) He rises from sleep twice a night to urinate. We have discussed lifestyle modification as a way to reduce nocturia. 06/27/2024 Benign prostatic hyperplasia, unspecified whether lower urinary tract symptoms present (ICD-10 - N40.0) He rises from sleep 3 or 4 times a night to urinate. We have discussed lifestyle modification as a way to reduce nocturia. A prostate procedure has been scheduled by his urologist in the near future. 07/28/2024 Arteriosclerotic coronary artery disease (ICD-10 - I25.10) He recently had an angioplasty of the right coronary artery and 2 stents put into the left system May 25, 2023 at [facility]. He says he is unable to tolerate the metoprolol as well as the Brilinta. He has had no angina since his last visit. 10/11/2024 Hyperlipidemia (ICD- 10 - E78.5) His lipids are stable. A repeat fasting lipid profile will be done periodically. No change in his regimen was necessary today. 06/07/2024 Calculus of ureter (ICD-10 - N20.1) A stent has been inserted and then removed. The stone was removed and was calcium oxalate. It is free of pain at this time, but weakened and has lost 5 pounds with his recent surgery and hospitalization. 06/27/2024 Peripheral arterial disease (ICD-10 - I73.9) He continues to have claudication primarily in his left leg. He has seen his vascular surgeon recently. She has operated on the left leg. It is warm today. He complains of pain in his left leg with walking length of the [employer]. 07/28/2024 Chronic obstructive pulmonary disease, unspecified (ICD-10 - J44.9) He is trying to stop smoking. He continues to consume 10 cigarettes daily. He is comfortable breathing room air. He has been compliant with his medications. 10/11/2024 GERD without esophagitis (ICD-10 - K21.9) His reflux symptoms have been well controlled with medication. He has been sleeping through the night lately. 06/07/2024 Hearing loss, bilateral (ICD-10 - H91.93) There has been no change in his hearing. He did quite well over the telephone today. 06/27/2024 Arteriosclerotic coronary artery disease (ICD-10 - I25.10) He recently had an angioplasty of the right coronary artery and 2 stents put into the left system May 25, 2023 at [facility]. He says he is unable to tolerate the metoprolol as well as the Brilinta. He has had no angina since his last visit. 07/28/2024 Complex renal cyst (ICD-10 - N28.1) The cyst will be imaged periodically. 10/11/2024 Benign prostatic hyperplasia, unspecified whether lower urinary tract symptoms present (ICD-10 - N40.0) He rises from sleep 3 or 4 times a night to urinate. We have discussed lifestyle modification as a way to reduce nocturia. A prostate procedure has been scheduled by his urologist in the near future. 06/07/2024 Left carotid artery stenosis (ICD-10 - I65.22) He has had an endarterectomy and now has a good pulse in the neck. 06/27/2024 Underweight (ICD-10 - R63.6) His weight has recently been stable in and underweight range. Because of his weight loss will be investigated. It is likely COPD. 10/11/2024 Left carotid artery stenosis (ICD-10 - I65.22) He has had an endarterectomy and now has a good pulse in the neck. 06/27/2024 Abnormal liver function tests (ICD-10 - R79.89) The cause of his abnormal transaminases enzymes will be sought. 10/11/2024 Arteriosclerotic coronary artery disease (ICD-10 - I25.10) He recently had an angioplasty of the right coronary artery and 2 stents put into the left system May 25, 2023 at [facility]. He says he is unable to tolerate [...] left leg with walking length of the [employer]. Plan Of Treatment Pending Test Test Name Order Date PROFILE, FASTING (COMPREHENSIVE METABOLI C) 08/04/2023 PROFILE, FASTING (COMPREHENSIVE METABOLI C) 01/29/2022 PROFILE, FASTING (COMPREHENSIVE METABOLI C) 04/06/2024 PROFILE, FASTING (COMPREHENSIVE METABOLI C) 07/05/2023 PROFILE, FASTING (COMPREHENSIVE METABOLI C) 07/28/2024 PROFILE, FASTING (COMPREHENSIVE METABOLI C) 02/23/2023 PROFILE, RANDOM (COMPREHENSIVE METABOLIC ) 06/22/2023 HEMOGLOBIN A1C (GLYCOHEMOGLOBIN) 023 LIPID PANEL 02/23/2023 PSA, TOTAL 04/06/2024 CBC w DIFF 04/06/2024 CBC w DIFF 02/23/2023 SED RATE (ESR) 06/22/2023 URINALYSIS (UA) 10/13/2023 XR CHEST 2 VIEW PA & LAT 09/21/2023 CBC WITH AUTO DIFF 06/22/2023 CBC WITH AUTO DIFF 08/04/2023 CBC WITH AUTO DIFF 07/05/2023 CBC WITH AUTO DIFF 07/28/2024 Lipid Panel 07/28/2024 Lipid Panel 04/06/2024 Lipid Panel 08/04/2023 Microalbumin, Random 07/05/2023 Microalbumin, Random 07/28/2024 Microalbumin, Random 04/06/2024 Microalbumin, Random 02/23/2023 Microalbumin, Random 08/04/2023 Hemoglobin A1c 08/04/2023 Hemoglobin A1c 07/28/2024 Hemoglobin A1c 04/06/2024 Next Appt Details Provider Name:Jemal Bustillos, 10/25/2024 09:45:00 AM, [address] [facility] [address], [place], [address], Provider Name:Jemal Bustillos, 07/30/2025 09:30:00 AM, [address] [place] [address] [address], [place], [address], Insurance Providers Payer Name Payer Address Payer Phone Subscriber Number Group Number Insured Name Patient Relationship to Insured Coverage Start Date Coverage End Date [facility] [address] [facility] [address] [place] [address] [id number] Antolin Perdomo Self - patient is the insured MEDICAID [facility] [address] [place] [id number] Antolin Perdomo Self - patient is the insured MEDICARE [employer] [address] [place] [address] [id number] Antolin Perdomo Self - patient is the insured Medical (General) History Medical History History ICD Code type II diabetes 10 years hypertension hyperlipidemia hearing loss, one hearing aid cigarette smoker sinusitis kidney stones COPD low back pain bilateral cataracts October 2010 left renal cyst left lower lobe pulmonary nodules with a telectasis complex exophytic cyst left kidney peripheral arterial disease, left caroti d, bilateral iliac and SFA's Left ureterolithiasis Calcium oxalate kidney stone Diabetes, Kidney Stones Gallbladder removal surgery in the past, Scheduled for a prostate surgery next month Surgical History Surgery Date(Month/Year) TURP 07/2024 Cholecystectomy Cardiac cath with 2 stent placements [place] [facility] [place] Cystoscopy with left uretera l stent subsequently removed, ureterolithiasis 09/2022 left carotid endarterectomy [facility], Dr. Alonso 09/2017 bilateral cataracts Hospitalization History Reason Date(Month/Year) Hospitalized at [facility] for pro state surgery TIA 08/2017
[2024-10-20 07:08] LABS: MANUAL DIFF FLAG NO
[2024-10-20 07:30] LABS: Basophils Percent Auto 0.4 % (0-2); Eosinophils Absolute Auto 0.4 X10*3/uL (0.0-0.4); Hematocrit 39.9 % (42.0-52.0); Hemoglobin 13.2 g/dl (14.0-18.0); Imm Gran Abs Auto 0.04 X10*3/uL (0.00-0.03); Imm Gran Pct Auto 0.4 % (0.0-0.4); Lymphocytes Absolute Auto 3.6 X10*3/uL (1.2-4.9); Lymphocytes Percent Auto 33.6 % (20-40); Mean Corpuscular HGB Conc 33.1 g/dl (31.0-36.0); Mean Corpuscular Hemoglobin 31.2 pg (27.0-33.0); Mean Corpuscular Volume 94.3 fL (80.0-98.0); Mean Platelet Volume 9.9 fL (9.4-12.4); Monocytes Absolute Auto 1.1 X10*3/uL (0.1-1.2); Monocytes Percent Auto 10.5 % (2-11); Neutrophils Absolute Auto 5.4 x10*3/uL (2.0-8.3); Neutrophils Percent Auto 51.1 % (45-73); Platelet Count 346 X10*3/uL (160-400); Red Blood Count 4.23 X10*6/uL (4.60-5.80); Red Cell Distribution Width 13.8 % (11.0-16.0); White Blood Count 10.6 X10*3/uL (4.8-10.8)
[2024-10-20 07:47] LABS: Estimated Average Glucose 166 mg/dL; Hemoglobin A1C 200.3009 umol/L; Hemoglobin A1c % 7.4 % (<6.0); Total Hemoglobin (HGBA1C) 3475.0073 umol/L
[2024-10-20 07:50] LABS: Alanine Aminotransferase 26 U/L (0-40); Albumin Level 4.7 g/dL (3.5-5.0); Anion Gap 17 (12-20); Aspartate Amino Transferase 25 U/L (5-37); Bilirubin Total 0.3 mg/dL (0.0-1.0); Blood Urea Nitrogen 36 mg/dL (9-16); Calcium 9.7 mg/dL (8.4-10.2); Carbon Dioxide 25 mmol/L (22-29); Chloride 103 mmol/L (96-108); Cholesterol 138 mg/dL (<200); Estimated Glomerular Filt Rate > 60; Glucose Fasting 111 mg/dL (60-99); HDL Cholesterol 39 mg/dL (>40); LDL Cholesterol Calculated 64 mg/dL (<100); Potassium 5.7 mmol/L (3.3-5.1); Sodium 139 mmol/L (135-145); Total Protein 7.5 g/dL (6.5-8.0); Triglycerides 179 mg/dL (<150)
[2024-10-20 07:51] LABS: Creatinine Urine 51.26 mg/dL; Microalbum/Creatinine Ratio Ur 813.4 ug/mg cr (<30)
[2024-10-20 08:07] LABS: Alkaline Phosphatase 82 U/L (39-117)
== END 2024-10-20 06:55 | disposition home or self-care (01) ==
LOC: HO.LAB 06:54
PROVIDERS: PCP Internal Medicine Medical Oncology; Visit Provider Internal Medicine Medical Oncology
DX: Z00.00 Encounter for general adult medical examination without abnormal findings (principal); E11.9 Type 2 diabetes mellitus without complications; E78.5 Hyperlipidemia, unspecified
CPT/HCPCS: 36415; 80053; 80061; 82043; 82570; 83036; 85025

== ENCOUNTER 2024-10-25 10:23 | Outpatient (REF) | payer MEDICARE, MEDICAID, SELFPAY ==
--- OUTSIDE RECORDS SUMMARY | 2024-10-25 11:21 | XMS_ITS ---
Author Organization Jemal Bustillos III, MD Address [address] [place] [address] [place] [address] Care Team Providers Care City Detective Name Role Phone Jemal Bustillos Primary Care Provider [phone] Allergies Allergen (clinical drug ingredient) Drug/Non Drug Allergy documented on EMR Reaction Allergy Type Onset Date Status No Known Drug Allergy Unknown Drug Allergy Active REASON FOR VISIT Follow up Medications Medication [...] Date Provider Diagnosis Jemal Bustillos III, MD [address] [place] [address] [place] [address] 10/25/2024 Jemal Bustillos Tobacco dependence F17.200 and Hyperkalemia E87.5 Assessments Encounter Date Diagnosis (ICD Code) Assessment Notes Treat ment Notes Treatment Clinical Notes 10/25/2024 Tobacco dependence (ICD-10 - F17.200) He continues to smoke about 10 cigarettes per day. I discussed smoking cessation with him at great length today. 10/25/2024 Hyperkalemia (ICD-10 - E87.5) Plan Of Treatment Medication Medication Name Sig [...] day 06/07/2024 Tamsulosin HCl 0.4 MG Oral Pending Test Test Name Order Date Electrolytes 10/25/2024 Next Appt Details Follow Up: 1 Week, Reason: T [facility] Provider Name:Jemal Bustillos, 10/31/2024 10:45:00 AM, [address] [place] [address] [address], [place], [address], Provider Name:Jemal Bustillos, 07/30/2025 09:30:00 AM, [address] [place] [address] [address], [place], [phone], Progress Notes * Beck PERDOMOOB:1940 (84 yo M)Acc No.[id number]:10/25/2024 Progress Notes Patient:?Antolin PERDOMO Provider:?Jemal Bustillos MD :1940???Age:84 Y???Sex:Male Andriy e:10/25/2024 Address:[address] [place] [address], [address], [place], [phone] Subjective: * Chief Complaints: * ???1. Follow up. * HPI: ???COVID-19 Screening:?Questions?Have you had any new onset fever, chills, cough, congestion, sore throat, shortness of breath, muscle aches??No * ROS:?General/Constitutional:?pain?only normal aches and pains.?Chills?denies.?Fatigue?admits.?Fever?denies.?ENT:?Decreased hearing?denies.?Respiratory:?Cough?denies.?Cardiovascular:?Chest pain with exertion?denies.?Dyspnea on exertion?denies.?Shortness of breath?denies.?Gastrointestinal:?Constipation?denies.?Decreased appetite?denies.?Diarrhea?denies.?Heartburn?denies.?Nausea?denies.?Rectal bleeding?denies.?Vomiting?denies.?Hematology:?bruising?denies.?petechiae?denies.?Swollen glands?none have been noted.?Genitourinary:?Frequent urination?denies.?Musculoskeletal:?Muscle aches?denies.?Painful joints?denies.?Sciatica?denies.?Weakness?denies.?Skin:?Itching?denies.?Rash?denies.?Skin lesion(s)?denies.?Neurologic:?Difficulty speaking?denies.?Dizziness?denies.?Headache?denies.?Low back pain?denies.?Psychiatric:?Depressed mood?denies.? 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 * Surgical History:?bilateral cataracts , left carotid endarterectomy [facility], Dr. Alonso 09/2017, Cystoscopy with left ureteral stent subsequently removed, ureterolithiasis 09/2022, [place]iac [place] with 2 [place] placements [place] [facility] [place], Cholecystectomy , TURP 07/2024. * Hospitalization/Major Diagno stic Procedure:?TIA 08/2017, Hospitalized at [facility] for prostate surgery . * Family History:?Father: dece ased 72 yrs, Diabetes, Heart failure, cancer, diagnosed with Cancer, DM.?Mother: alive 68 yrs, diagnosed with DM, Cancer.?Children: alive.?Son(s): alive.?2 brother(s) , 3 sister(s) . [...] Findings: Tobacco user?Heavy cigarette smoker (20-39 cigs/day) ???He was to Anamaria (Alicia) for 49 years and is now . They had three sons and 2 grandchildren. 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 He smoked cigarettes but does not drink alcohol or take drugs. He has no occupational exposures and no travel history. Smokin.5 packs per day Smoking: Patient smokes 15-20 cigarettes a day. * Medications:?Taking glyBURID E 5 MG Tablet TAKE 2 TABLETS BY MOUTH EVERY MORNING , Notes to Pharmacist: Patient has Insurance [place] approval from 07/05/2024-05/30/2025, Taking metFORMIN HCl 1000 MG Tablet TAKE 1 TABLET BY MOUTH TWICE A DAY FOR 30 DAYS , Taking Aspirin Adult Low Dose 81 MG Tablet Delayed Release 1 tablet Orally Once a day , Taking Lisinopril 30 MG Tablet 1 tablet Orally Once a day , Taking Metoprolol Succinate ER 25 MG Tablet Extended Release 24 Hour 1 tablet Orally Once a day , Taking Omeprazole 20 MG Capsule Delayed Release 1 capsule 30 minutes before morning meal Orally twice a day , Taking Atorvastatin Calcium 20 MG Tablet 1 tablet Orally Once a day , Taking predniSONE 20 MG Tablet 1 tablet with food or milk Orally Once a day , Taking Albuterol Sulfate HFA 108 (90 Base) MCG/ACT Aerosol Solution 1 puff as needed Inhalation every 4 hrs , Taking Famotidine 20 MG Tablet 1 tablet at bedtime as needed Orally Once a day , Taking Clopidogrel Bisulfate 75 MG Tablet 1 tablet Orally Once a day , Taking Loratadine 10 MG Tablet 1 tablet Orally Once a day , Taking Tamsulosin HCl 0.4 MG Capsule Oral , Taking Pioglitazone HCl 15 MG Tablet 1 tablet Orally Once a day , Taking Fluticasone Furoate 27.5 MCG/SPRAY Suspension 2 sprays (1 spray in each nostril) Nasally Once a day , Taking Meclizine HCl 25 MG Tablet 1 tablet as needed Orally every 12 hrs , Medication List reviewed and reconciled with the patient * Allergies:?No Known Drug All ergy. Objective: * Vitals:?Ht: 65, Wt:128, BMI: 21.3, BP:166/57, HR:72, Temp:97.9, Ht-cm: 165.1, Wt- k.06. * ???Past Orders: Lab:Microalbumin, Random * Collection Date 10/20/2024 06/24/2022 01/13/2021 Collection Time 07:05 AM 08:01 AM 06:20 AM Order Date 10/20/2024 06/24/2022 01/13/2021 Creatinine Urine 51.26 (Ref Range: mg/dL) 82.41 (Ref Range: mg/dL) 97.21 (Ref Range: mg/dL) Microalbumin Urine 417.0 (Ref Range: mg/L) 150.0 (Ref Range: mg/L) 338.0 (Ref Range: mg/L) Microalbum Creatinine Ratio Ur 813.4?H (Ref Range: <30 ug/mg cr) 182.0 (Ref Range: ug/mg cr) 347.7 (Ref Range: ug/mg cr) * Lab:Lipid Panel * Collection Date 10/20/2024 02/14/2024 07/06/2023 Collection Time 07:06 AM 09:03 AM 07:32 AM Order Date 10/20/2024 02/14/2024 07/05/2023 Triglycerides 179?H (Ref Range: <150 mg/dL) 174?H (Ref Range: <150 mg/dL) 98 (Ref Range: <150 mg/dL) Cholesterol 138 (Ref Range: <200 mg/dL) 101 (Ref Range: <200 mg/dL) 117 (Ref Range: <200 mg/dL) LDL Cholesterol Calculated 64 (Ref Range: <100 mg/dL) 38 (Ref Range: <100 mg/dL) 61 (Ref Range: <100 mg/dL) HDL Cholesterol 39?L (Ref Range: >40 mg/dL) 29?L (Ref Range: >40 mg/dL) 37?L (Ref Range: >40 mg/dL) * Lab:[facility] [place]. Pane l Fast * Collection Date 10/20/2024 [...] U/L) 84 (Ref Range: 39-117 U/L) Potassium 5.7?H (Ref Range: 3.3-5.1 mmol/L) 5.3?H (Ref Range: 3.3-5.1 mmol/L) 5.1 (Ref Range: 3.3-5.1 mmol/L) Chloride 103 (Ref Range: 96-108 mmol/L) 100 (Ref Range: 96-108 mmol/L) 104 (Ref Range: 96-108 mmol/L) Carbon Dioxide 25 (Ref Range: 22-29 mmol/L) 27 (Ref Range: 22-29 mmol/L) 27 (Ref Range: 22-29 mmol/L) Anion Gap 17 (Ref Range: 12-20) 15 (Ref Range: 12-20) 13 (Ref Range: 12-20) Blood Urea Nitrogen 36?H (Ref Range: 9-16 mg/dL) 24?H (Ref Range: 9-16 mg/dL) 26?H (Ref Range: 9-16 mg/dL) Creatinine 1.05 (Ref Range: 0.5-1.4 mg/dL) 1.13 (Ref Range: 0.5-1.4 mg/dL) 0.94 (Ref Range: 0.5-1.4 mg/dL) Estimated Glomerular Filt Rate > 60 > 60 > 60 Glucose Fasting 111?H (Ref Range: 60-99 mg/dL) 171?H (Ref Range: 60-99 mg/dL) 150?H (Ref Range: 60-99 mg/dL) Calcium 9.7 (Ref Range: 8.4-10.2 mg/dL) 9.4 (Ref Range: 8.4-10.2 mg/dL) 9.7 (Ref Range: 8.4-10.2 mg/dL) * Lab:Complete Blood Count Aut o Diff * Collection Date 10/20/2024 05/04/2024 02/14/2024 Collection Time 07:06 AM 09:42 AM 09:03 AM Order Date 10/20/2024 05/04/2024 02/14/2024 White Blood Count 10.6 (Ref Range: 4.8-10.8 X10*3/uL) 11.6?H (Ref Range: 4.8-10.8 X10*3/uL) 9.7 (Ref Range: 4.8-10.8 X10*3/uL) Red Blood Count 4.23?L (Ref Range: 4.60-5.80 X10*6/uL) 3.86?L (Ref Range: 4.60-5.80 X10*6/uL) 3.85?L (Ref Range: 4.60-5.80 X10*6/uL) Hemoglobin 13.2?L (Ref Range: 14.0-18.0 g/dl) 12.1?L (Ref Range: 14.0-18.0 g/dl) 12.0?L (Ref Range: 14.0-18.0 g/dl) Hematocrit 39.9?L (Ref Range: 42.0-52.0 %) 36.2?L (Ref Range: 42.0-52.0 %) 37.2?L (Ref Range: 42.0-52.0 %) Mean Corpuscular Volume [...] Pct Auto 0.4 (Ref Range: 0.0-0.4 %) 0.5?H (Ref Range: 0.0-0.4 %) 0.5?H (Ref Range: 0.0-0.4 %) Lymphocytes Percent Auto 33.6 (Ref Range: 20-40 %) 17.8?L (Ref Range: 20-40 %) 26.6 (Ref [...] Absolute Auto 5.4 (Ref Range: 2.0-8.3 x10*3/uL) 8.5?H (Ref Range: 2.0-8.3 x10*3/uL) 6.0 (Ref Range: 2.0-8.3 x10*3/uL) Imm Gran Abs Auto 0.04?H (Ref Range: 0.00-0.03 X10*3/uL) 0.06?H (Ref Range: 0.00-0.03 X10*3/uL) 0.05?H (Ref Range: 0.00-0.03 X10*3/uL) Lymphocytes Absolute Auto [...] Date 10/20/2024 07/05/2023 05/23/2023 Hemoglobin A1c % 7.4?H (Ref Range: <6.0 %) 7.8?H (Ref Range: <6.0 %) 7.8?H (Ref Range: <6.0 %) Estimated Average Glucose [...] postitive Menstrating NR N/A n/a * Examination: ???General Examination: ?GENERAL APPEARANCE:?pleasant, well nourished, well developed, in no acute distress, calm and relaxed.?HEAD:?atraumatic, normocephalic.?EYES:?eomi, perrla, anicteric, conjugate.?EARS:?normal.?NOSE:?septum intact.?ORAL CAVITY:?normal, unremarkable.?NECK/THYROID:?no jugular venous distention, no carotid bruit, thyroid normal.?LYMPH NODES:?no enlarged lymph nodes,spleen normal.?SKIN:?no suspicious lesions, anicteric.?HEART:?no clicks, gallops, murmurs, or rubs, regular rhythm, S1, S2 normal, no s3, or vascular bruits.?LUNGS:?clear to auscultation .?BREASTS:??no masses palpable bilaterally.?ABDOMEN:?bowel sounds normal, no ascites, no organomegaly, no mass.?RECTAL EXAM:?not examined.?MUSCULOSKELETAL:?extremities unremarkable, no clubbing, cyanosis or edema.?PERIPHERAL PULSES:?normal.?NEUROLOGIC:?alert and oriented, cranial nerves 2-12 grossly intact, deep tendon reflexes 2+ symmetrical, motor strength normal upper and lower extremities, sensory exam intact.?PSYCH:?alert, oriented.? Assessment: * Assessment: 1.?Tobacco dependence - F17. 200???Notes :He continues to smoke about 10 cigarettes per day. I discussed smoking cessation with him at great length today.???2.?Hyperkalemia - E87.5??? Plan: * Treatment: 2.?Hyperkalemia?LAB: Electrolytes 3.?Others? Continue metFORMIN HCl Tablet, 1000 MG, TAKE 1 TABLET BY MOUTH TWICE A DAY FOR 30 DAYS.?? * Preventive Medicine:? ??Counseling:?Care goal follow-up plan:?Counseling for abnormal BMI given?Yes ?Below Normal BMI Follow-up?Dietary education for weight gain, Dietary management education, guidance, and counseling, Feeding regime, Lifestyle education regarding diet, Nutrition / feeding management, Prescribed diet education, Special diet education, Intervention, Order not done: Medical or Other reason not done * Follow Up:?1 Week (Reason: T [facility]) * Images: * The named appointment provid er may or may not be the originator of this progress note, and it is not deemed complete until electronically signed by the appointment provider. Sign off status: Pending * Provider:?Jemal Bustillos MD Date:?09/29 Generated for Abner camara/Vee/Daniellaitting on:?10/25/2024 11:20 AM EDT History and Physical Notes * HPI (History of Present Illness) Category Sub-Category Detail Notes COVID-19 Screening Questions Have you had any new onset fever, chills, cough, congestion, sore throat, shortness of breath, muscle aches?: No Examination Category Sub-Category Detail Notes General Examination GENERAL APPEARANCE: pleasant , well nourished, well developed, in no acute distress, calm and relaxed HEAD: atraumatic, normocep halic EYES: eomi, perrla, anicte estela, conjugate EARS: normal NOSE: septum intact NECK/THYROID: no jugular venous di stention, no carotid bruit, thyroid normal HEART: no clicks, gallops, murmurs, or rubs, regular rhythm, S1, S2 normal, no s3, or vascular bruits LUNGS: clear to auscultatio n ABDOMEN: bowel sounds normal, no ascites, no organomegaly, no mass NEUROLOGIC: alert and oriented, cranial nerves 2-12 grossly intact, deep tendon reflexes 2+ symmetrical, motor strength normal upper and lower extremities, sensory exam intact SKIN: no suspicious lesion s, anicteric PERIPHERAL PULSES: normal BREASTS: no masses palpable b ilaterally MUSCULOSKELETAL: extremities unremark able, no clubbing, cyanosis or edema LYMPH NODES: no enlarged lymph no ines,spleen normal RECTAL EXAM: not examined PSYCH: alert, oriented ORAL CAVITY: normal, unremarkable
[2024-10-25 11:50] LABS: Anion Gap 13 (12-20); Carbon Dioxide 27 mmol/L (22-29); Chloride 102 mmol/L (96-108); Potassium 5.2 mmol/L (3.3-5.1); Sodium 137 mmol/L (135-145)
== END 2024-10-25 10:24 | disposition home or self-care (01) ==
LOC: HO.10HDL 10:23
PROVIDERS: Visit Provider Internal Medicine Medical Oncology
DX: E87.5 Hyperkalemia (principal)
CPT/HCPCS: 36415; 80051

== ENCOUNTER 2024-11-09 08:50 | Outpatient (AMB) | payer MEDICARE, MEDICAID, SELFPAY ==
[2024-11-09 08:54] VITALS: BMI 20.8
--- NOTE | 2024-11-09 08:54 | A.OFFVIS_ITS ---
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 Patient states that about a month is when the pain really stated to flair up. Patient reports that he has had a rough sensation in his palm and wrist for years. He states that no numbness or tingling in the fingers or palm. Patient states that he was seen by his PCP Tressa HERRERA on 10.22.24 for the issue who then refereed him here. Patient states that nothing was done to help with the pain that he wanted to wait until this visit to discuss what are his options. 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 Patient states that about a month is when the pain really stated to flair up. Patient reports that he has had a rough sensation in his palm and wrist for years. He states that occasional numbness but no tingling in the ring and small fingers fingers no symptoms in the palm. Patient states that he was seen by his PCP Tressa HERRERA on 10.22.24 for the issue who then refereed him here. Patient states that nothing was done to help with the pain that he wanted to wait until this visit to discuss what are his options. [facility] Medical History CAD (coronary artery disease) Nephrolithiasis NSTEMI (non-ST elevated myocardial infarction) Nausea Acute cholecystitis Hyperlipidemia Peripheral arterial disease TIA (transient ischemic attack) COPD (chronic obstructive pulmonary disease) Hearing loss Elevated cholesterol HTN (hypertension) Staghorn calculus Enlarged prostate Diabetes mellitus, type II Renal cysts, acquired, bilateral History of kidney stones Rotator cuff impingement syndrome Surgical History Hx of cardiac catheterization Hx of cystoscopy History of left-sided carotid endarterectomy Hx of cataract surgery Hx of lithotripsy History of surgery Social History Household Members: None Household Members Other:: 0 Housing: House Housing Other:: apt. in duplex Are you a primary nurse healthcare manager to a significant other at home: No Do you presently have visiting nurse or other home services: No Patient Tobacco Use Status: Current everyday Tobacco user Tobacco use type: Cigarette Cigarette Packs Per Day: 1.5 Cigarettes Per Day: 30.0 Years Smoked: 60 e-Cigarette/Vaping Use: Never Used Advance Directives Date on File: 09/29/22 service: Yes Current occupational status: employed Review of Systems Const All systems reviewed & are unremarkable except as noted in HPI and below Physical Exam Vital Signs: BMI result Body Mass Index 20.8 Extrem Other: Patient is alert, oriented, and in no acute distress. Neuro: Normal sensation of the tips of all digits of the left hand at this time Vascular: Cap refill brisk Pain: No tenderness to palpation about Dupuytren's nodule between the 4th and 5th metacarpal shafts Patient does report an electric shock-like sensation to palpation of the tips of the 4th and 5th digits of the left hand No pain with range of motion of the left hand ROM: Patient is able to make a closed fist and extend all digits of the left hand fully Skin: Small Dupuytren's nodule noted between the 4th and 5th metacarpal shafts of the left hand, no evidence of cord formation at this time No lacerations or abrasions. General: No ecchymosis, erythema, or evidence of infection. Psych: Appears grossly normal Affect normal Attitude cooperative Assessment & Plan Assessment & Plan (1) Numbness of left hand: Code(s): R20.0 - Anesthesia of skin Category: Medical (2) Dupuytren's disease of palm of left hand: Code(s): M72.0 - Palmar fascial fibromatosis [Dupuytren] Category: Medical Plan 1. Numbness and pain in ulnar nerve distribution of the left hand Patient is educated about this condition Patient is educated about the typical treatment course At this time, patient is advised that I feel the best course of action is an EMG and nerve conduction study to effectively rule in or out ulnar neuropathy However, the patient states that he has had EMG and nerve conduction studies performed on his lower extremities, and he finds these studies extremely unpleasant and would like to avoid at this time Patient is educated on the risks of prolonging diagnosis and treatment of cubital tunnel syndrome Patient states understanding of the risks Will follow-up if he decides he would like to pursue EMG and nerve conduction study 2. Dupuytren's nodule of the left hand No operative intervention indicated, as there is no cord formation Patient is advised on the table top test and to call our office for repeat appointment if he can no longer get his hand flat on a table Patient is amenable to this plan Follow-up as needed Coding Level of Care Code New Pt Level 3 (29863) Diagnoses Numbness of left hand R20.0 Dupuytren's disease of palm of left hand M72.0
--- OUTSIDE RECORDS SUMMARY | 2024-11-09 09:21 | XMS_ITS ---
Author Organization Jemal Bustillos III, MD Address [address] [place] [address] [place] [address] Care Team Providers Care Distributor Sales Manager Name Role Phone Jemal Bustillos Primary Care Provider [phone] Allergies Allergen (clinical drug ingredient) Drug/Non Drug Allergy documented on EMR Reaction Allergy Type Onset Date Status No Known Drug Allergy Unknown Drug Allergy Active Results Component Value Reference Range Notes Electrolytes (Not yet review ed by provider) Interpretation: Performing Lab:[facility], [address] [place] [address] Notes/Report: Sodium 137 135-145 mmol/L Potassium 5.2 [...] Status W/U Status Risk Notes Problem Hyperkalemia (32867031) Hyperkalemia (E87.5) Active confirmed His potassium level [...] Date Provider Diagnosis Jemal Bustillos III, MD [address] [place] [address] [address] [place], [place] [address] 10/25/2024 Jemal Bustillos Tobacco dependence F17.200 ; [...] Week, Reason: T [facility] Provider Name:Jemal Bustillos, 12/26/2024 09:30:00 AM, [address] [place] [address] [address], [address], Provider Name:Jemal Bustillos, 07/30/2025 09:30:00 AM, [address] [place] [address] [place], [address], Progress Notes * Beck PERDOMOOB:1940 (84 yo M)Acc No.[id number]:10/25/2024 Progress Notes Patient:Antolin PAUL Provider:?Jemal Bustillos MD :1940???Age:84 Y???Sex:Male Andriy e:10/25/2024 Address:[address] [place] [address], [id number] Subjective: * Chief Complaints: * ???Follow up * HPI: ???COVID-19 Screening:?Questions?Have you had any new onset fever, chills, cough, congestion, sore throat, shortness of breath, muscle aches??No * ROS:?General/Constitutional:?pain?only normal aches and pains.?Chills?denies.?Fatigue?admits.?Fever?denies.?ENT:?Decreased hearing?mild.?Respiratory:?Cough?non-productive.?Cardiovascular:?Chest pain with exertion?denies.?Dyspnea on exertion?with moderate activity.?Shortness of breath?with exertion.?Gastrointestinal:?Constipation?denies.?Decreased appetite?denies.?Diarrhea?Resolved.?Heartburn?denies.?Nausea?denies.?Rectal bleeding?denies.?Vomiting?denies.?Hematology:?bruising?denies.?petechiae?denies.?Swollen glands?none have been noted.?Genitourinary:?Frequent urination?twice a night.?Musculoskeletal:?Muscle aches?denies.?Painful joints?denies.?Sciatica?denies.?Weakness?denies.?Skin:?Itching?denies.?Rash?denies.?Skin lesion(s)?denies.?Neurologic:?Difficulty speaking?denies.?Dizziness?denies.?Headache?denies.?Low back pain?denies.?Psychiatric:?Depressed mood?denies.? * Medical History:? * Surgical History:?bilateral cataracts left carotid endarterectomy [facility], Dr. Alonso 09/2017Cystoscopy with left ureteral stent subsequently removed, ureterolithiasis ardiac cath with 2 stent placements at [facility] holecystectomy TURP 07/2024 * Hospitalization/Major Diagno stic Procedure:?TIA 08/2017Hospital[facility] * Family History:?Father: dece [...] sons and 2 grandchildren. 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 He smoked cigarettes but does not drink alcohol or take drugs. He has no occupational exposures and no travel history. Smokin.5 packs per day Smoking: Patient smokes 15-20 cigarettes a day. * Medications:?TakingglyBURIDE 5 MG Tablet TAKE 2 TABLETS BY [...] All ergyno[Allergies Verified] Objective: * Vitals:?Ht: 65, Wt:128, BMI: 21.3, [...] mg/dL) 37?L (Ref Range: >40 mg/dL) * Lab:[facility] * Collection Date 10/20/2024 07/06/2023 [...] 0.2 (Ref Range: 0.1 - 1.8) negative SELIAN Negative (Ref Range: 0.2 - 1.3) Negative (Ref Range: 0.2 - 1.3) negative BLD +++ (Ref Range: Negative -) Negative (Ref Range: Negative -) postitive Menstrating NR N/A n/a * Examination: ???General Examination: ?GENERAL APPEARANCE:?pleasant, well nourished, well developed, in no acute distress, calm and relaxed, elderly man.?HEAD:?atraumatic, normocephalic.?EYES:?eomi, perrla, anicteric, conjugate.?EARS:?normal.?NOSE:?septum intact.?ORAL CAVITY:?normal, unremarkable.?NECK/THYROID:?no jugular venous distention, no carotid bruit, thyroid normal.?LYMPH NODES:?no enlarged lymph nodes,spleen normal.?SKIN:?no suspicious lesions, anicteric.?HEART:?no clicks, gallops, murmurs, or rubs, regular rhythm, S1, S2 normal, no s3, or vascular bruits.?LUNGS:?, diminished breath sounds throughout, rhonchi on the RIGHT, rhonchi on the LEFT, scattered inspiratory wheezes.?BREASTS:??no masses palpable bilaterally.?ABDOMEN:?bowel sounds normal, no ascites, no organomegaly, no mass.?RECTAL EXAM:?not examined.?MUSCULOSKELETAL:?extremities unremarkable, no clubbing, cyanosis or edema, Decreased range of motion lumbar spine.?PERIPHERAL PULSES:?normal.?NEUROLOGIC:?alert and oriented, cranial nerves 2-12 grossly intact, deep tendon reflexes 2+ symmetrical, motor strength normal upper and lower extremities, sensory exam intact.?PSYCH:?alert, oriented.? Assessment: * Assessment: 1.?COPD (chronic obstructive pulmonary disease) - J44.9 (Primary)???Notes :He continues to smoke about 10 cigarettes daily. He is comfortable breathing room air at rest. At this point he does not need home oxygen. We have discussed smoking cessation strategies at length today. He was offered medications and we'll consider it.???2.?Tobacco dependence - F17.200???Notes :He continues to smoke about 10 cigarettes per day. I discussed smoking cessation with him at great length today.???3.?Hyperkalemia - E87.5???Notes :His potassium level was 5.7.? He was sent to repeat it.? On? repeat it was 5.2.???4.?Hearing loss, bilateral - H91.93???Notes :There has been no change in his hearing. He did quite well over the telephone today.???5.?Type 2 diabetes mellitus without complications - E11.9???Notes :He has been continued on his current regimen without change. His glucose levels have been acceptable. He has been compliant with his treatment and diet.???6.?Pulmonary nodule - R91.1???Notes :He has a 7 mm right lower lobe nodule which will be followed carefully.???7.?Left carotid artery stenosis - I65.22???Notes :He has had an endarterectomy and now has a good pulse in the neck.???8.?Benign prostatic hyperplasia, unspecified whether lower urinary tract symptoms present - N40.0???Notes :He rises from sleep 3 or 4 times a night to urinate. We have discussed lifestyle modification as a way to reduce nocturia. A prostate procedure has been scheduled by his urologist in the near future.???9.?Dupuytrens contracture - M72.0???Notes :He has mild to moderate bilateral Dupuytren's contracture in the palm of each hand. It has become painful in the left hand recently.??? Plan: * Treatment: 2.?Hyperkalemia?LAB: Electrolytes (Collection Date & Time - 10/25/2024 10:30 AM) ? Value Reference Range ?Sodium 137 135-145 - mmol/ L * ?Potassium 5.2 H 3.3-5.1 - mmo l/L * ?Chloride 102 96-108 - mmol/ L * ?Carbon Dioxide 27 22-29 - mmol/L * ?Anion Gap 13 12-20 - 3.?Others? Continue metFORMIN HCl Tablet, 1000 MG, TAKE 1 TABLET BY MOUTH TWICE A DAY FOR 30 DAYS.?? * Procedure Codes:? * Preventive Medicine:? ??Counseling:?Care goal follow-up plan:?Counseling for abnormal BMI given?Yes ?Below Normal BMI Follow-up?Dietary education for weight gain, Dietary management education, guidance, and counseling, Feeding regime, Lifestyle education regarding diet, Nutrition / feeding management, Prescribed diet education, Special diet education, Intervention, Order not done: Medical or Other reason not done ?Smoking/Tobacco Use?Patient counseled on the dangers of tobacco use and urged to quit.?10/25/2024 ?Patient Lifestyle Goals?Patient does not want to quit ?Treatment Goals?Cut down by 1 cigarette a week, Set a quit date ?Barriers?Stress, Social smoker, Not interested in quitting ?Self-Management Plan?Make a plan to cut down number of cigarettes over time and set a date to work towards quitting ??DM Care Plan:?Patient Lifestyle Goals?Patient wants to be able to manage diabetes without too much effort.?Treatment Goals?HbA1C < 7.0, Blood Sugars less than < 115.?Barriers?no barriers.?Self-Managment Goals?Take blood sugars twice daily and keep a log. Bring log in to next appointment.? ??COPD Care Plan:?Patient Lifestyle Goals?Be able to be more active with friends and family, Reduce number of ED and hospitalizations, Relieve symptoms and improve quality of life.?Treatment Goals?Quit Smoking, Exercise to help whole body, including lungs, Eat a nutritious diet and increase water consumption to 6-8 glasses a day.?Barriers?no barriers.?Self-Managment Goals?Make a plan for quitting smoking, Get an air purifier for the rooms you are in the most, Eat a healthy diet.? * Follow Up:?1 Week (Reason: T [facility]) * Images: * Sign off status: Completed true * Provider:?Jemal Bustillos MD Date:?09/29 Generated for Abner camara/Vee/eTransmitting on:?11/09/2024 09:20 AM EDT History and Physical Notes * [...]
== END 2024-11-09 09:30 | disposition home or self-care (01) ==
LOC: HO.HOS 08:51
PROVIDERS: PCP Internal Medicine Medical Oncology
DX: R20.0 Anesthesia of skin (principal); M72.0 Palmar fascial fibromatosis [Dupuytren]
CPT/HCPCS: 99203

== ENCOUNTER → 2024-11-09 08:50 | Outpatient (BNVA) | payer MEDICARE, MEDICAID, SELFPAY | PROVIDERS: PCP Internal Medicine Medical Oncology | DX: R20.0 Anesthesia of skin (principal); M72.0 Palmar fascial fibromatosis [Dupuytren] | CPT/HCPCS: 99202 ==

== ENCOUNTER 2025-01-22 09:14 | Outpatient (REF) | payer MEDICARE, MEDICAID, SELFPAY ==
--- OUTSIDE RECORDS SUMMARY | 2023-10-04 09:55 | XMS_ITS ---
Author Organization [facility] Address [address] [place] [phone] Care Team Providers Care [employer] Operator Name Role Phone Tressa BRANDT, Ileana Primary Care Provider Eladio Stokes Jr, Nicolás Martinez [phone] REASON FOR VISIT N/V EARLY SATIETY/hemoptysis Encounters Encounter Location Date Provider Diagnosis [facility] [address] [place] [phone] 10/04/2023 Nicolás Puckett Jr Plan Of Treatment No Information Progress Notes * BETTY MENDEZ LDOB:[birth year] (84 yo M)Acc No.[id number]:10/04/2023 Progress Notes Patient: BETTY AZEVEDO Provider: Narda Puckett MD :1940 A ge:83 Y S ex:Male Date:10/04/2023 Address:[address] [place], [place] [id number] Pcp:Ileana Bustillos MD Subjective: * Chief Complaints: [...] 0 10/04/2023 Generated for Miriani jax/Vee/eTransmitting on: 01/22/2025 09:58 AM EDT
--- OUTSIDE RECORDS SUMMARY | 2024-10-25 05:45 | XMS_ITS ---
Author Organization Jemal Bustillos III, MD Address [address] [place] [address] [place] [address] Care Team Providers Care Instrument Adjuster Name Role Phone Jemal Bustillos Primary Care Provider Allergies Allergen (clinical drug ingredient) Drug/Non Drug Allergy documented on EMR Reaction Allergy Type Onset Date Status No Known Drug Allergy Unknown Drug Allergy Active Results Component Value Reference Range Notes Electrolytes Reviewed date:12/30/2024 08:44:06 PM Interpretation: Performing Lab:[facility], [address] [place] [address] Notes/Report: Sodium 137 135-145 mmol/L Potassium 5.2 [...] Status W/U Status Risk Notes Problem Hyperkalemia (05974887) Hyperkalemia (E87.5) Active confirmed His potassium level [...] Date Provider Diagnosis Jemal Bustillos III, MD [address] [place] [address] [address] [place], [place] [phone] 10/25/2024 Jemal Bustillos Tobacco dependence F17.200 ; [...] [facility] Provider Name:Jemal Bustillos, 03/29/2025 09:00:00 AM, [address] [place] [address] [address], [place], [address], Provider Name:Jemal Bustillos, 07/30/2025 09:30:00 AM, [address] [place] [address] [address], [place], [address], Progress Notes * Hortensia PERDOMOileDOB:1940 (84 yo M)Acc No.[id number]:10/25/2024 Progress Notes Patient: Antolin AZEVEDO Provider: Sapna Bustillos MD :1940 A ge:84 Y S ex:Male Date:10/25/2024 Address:[address] [place] [id number] Subjective: * Chief Complaints: * F ollow [...] b ilateral cataracts left carotid endarterectomy [facility], Dr. Alonso 09/2017Cystoscopy with left ureteral stent subsequently removed, ureterolithiasis [place]ac [place] plac[place] [facility] [place] * Hospitalization/Major Diagno stic Procedure: T [place] 08/2017Hospitalized at [facility] for prostate surgery * Family History: F [...] sons and 2 grandchildren. 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 He smoked cigarettes but does not drink [...] L (Ref Range: >40 mg/dL) * Lab:[facility] [place] * Collection Date 10/20/2024 [...] 0.2 (Ref Range: 0.1 - 1.8) negative ESLINA Negative (Ref Range: 0.2 - 1.3) Negative [...] 10/25/2024 Generated for Abner camara/Vee/Daniellaitting on: 0 01/22/2025 09:58 AM EDT History and Physical Notes * [...]
--- NOTE | ~2025-01-22 | US_ITS ---
CLINICAL HISTORY: N20.0 - Calculus of kidney US RENAL Comparison: US/SR - US ABDOMEN LIMITED - 05/04/24 13:11 EST Findings: Right kidney length is 11.0 cm. Left kidney length is 10.8 cm. Renal cortical thickness and echotexture are within normal limits bilaterally. 1.8 cm dominant exophytic cyst in the upper pole of the right kidney. 6.9 x 3.3 x 5.1 cm dominant exophytic cyst in the upper to midpole of the left kidney. There are punctate echogenic foci in the right kidney. There are hyperechoic foci in the left kidney measuring up to 4 mm. IMPRESSION: 1. No hydronephrosis. 2. Bilateral nephrolithiasis, left greater than right. 3. Bilateral renal cysts. This document has been electronically signed by: Yesy Hillman DO on 01/22/2025 16:12:32
--- OUTSIDE RECORDS SUMMARY | 2025-01-22 09:58 | XMS_ITS | Clinical Summary ---
Author Organization [facility] Address [address] [place] [phone] Phone Care Team Providers Care Spindle Frame Carver Name Role Phone Unavailable Primary Care Provider [...] Recorded Sex Assigned at Not on file Legal Sex Male 9:26 AM EDT Gender Identity Not on file Sexual Orientation Not on file Plan of Treatment Not on file Medical Devices Not on file Insurance [employer] HMO [place]PLAC[place] [place] [address] MEDICARE HMO REPLACEMENT MEDICARE HMO [place] [place] [address] [address] [place] [place] [place] [address] MEDICARE HMO REPLACEMENT [employer] H[employer] REPLACEMENT Additional Source Comments The information contained in this document represents components of the legal health record. It is not the complete legal health record.[facility]
== END 2025-01-22 09:15 | disposition home or self-care (01) ==
LOC: HO.US 09:14
PROVIDERS: PCP Internal Medicine Medical Oncology; Visit Provider Urology
DX: N20.0 Calculus of kidney (principal)
CPT/HCPCS: 76775

== ENCOUNTER → 2025-01-22 09:16 | Outpatient (BNV) | payer MEDICARE, MEDICAID, SELFPAY | PROVIDERS: PCP Internal Medicine Medical Oncology; Visit Provider Radiology Diagnostic Radiology | DX: N20.0 Calculus of kidney (principal); N28.1 Cyst of kidney, acquired | CPT/HCPCS: 76775 ==

== ENCOUNTER 2025-02-02 09:39 | Outpatient (AMB) | payer MEDICARE, MEDICAID, SELFPAY ==
--- OUTSIDE RECORDS SUMMARY | 2023-10-04 09:55 | XMS_ITS ---
Author Organization [facility] Address [address] [place] [id number] Care Team Providers Care Ostomy Care Nurse Name Role Phone Tressa BRANDT, Ileana Primary Care Provider Eladio Stokes Jr, Nicolás Martinez [phone] REASON FOR VISIT N/V EARLY SATIETY/hemoptysis Encounters Encounter Location Date Provider Diagnosis [facility] [address] [place] [phone] 10/04/2023 Nicolás Puckett Jr Plan Of Treatment No Information Progress Notes * BETTY MENDEZ LDOB:[birth year] (84 yo M)Acc No.[id number]:10/04/2023 Progress Notes Patient: BETTY AZEVEDO Provider: Narda Puckett MD :1940 A ge:83 Y S ex:Male Date:10/04/2023 Address:[address] [place], [place] [id number] Pcp:Ileana Bustillos MD Subjective: * Chief Complaints: * 1 . N/V EARLY SATIETY/hemoptysis. * Medical History: Objective: * Vitals: Assessment: Plan: * Treatment: * * The named appointment provid er may or may not be the originator of this progress note, and it is not deemed complete until electronically signed by the appointment provider. Sign off status: Pending * Provider: Narda Puckett MD Date: 0 10/04/2023 Generated for Miriani jax/Vee/eTransmitting on: 0 02/02/2025 10:23 AM EDT
--- OUTSIDE RECORDS SUMMARY | 2023-12-27 05:20 | XMS_ITS ---
Author Organization [facility] Address [address] [place] [id number] Care Team Providers Care Fiber Technologist Name Role Phone Tressa BRANDT, Ileana Primary Care Provider Eladio Stokes Jr, Nicolás Martinez Encounters Encounter Location Date Provider Diagnosis [facility] [address] [place] [phone] 12/27/2023 Nicolás Puckett Jr Plan Of Treatment No Information Progress Notes * BETTY MENDEZ LDOB:[birth year] (84 yo M)Acc No.[id number]:12/27/2023 Progress Notes Patient: BETTY AZEVEDO Provider: Narda Puckett MD :1940 A ge:83 Y S ex:Male Date:12/27/2023 Address:[address] [place], [place] [phone] Pcp:Ileana Bustillos MD Subjective: * Chief Complaints: * * Medical History: Objective: * Vitals: Assessment: Plan: * Treatment: * * The named appointment provid er may or may not be the originator of this progress note, and it is not deemed complete until electronically signed by the appointment provider. Sign off status: Pending * Provider: Narda Puckett MD Date: 12/27/2023 Generated for Miriani ng/Faakirag/eTransmitting on: 02/02/2025 10:24 AM EDT
--- OUTSIDE RECORDS SUMMARY | 2024-08-14 06:50 | XMS_ITS ---
Author Organization Jemal Bustillos III, MD Address [address] [place] [address] [place] [address] Care Team Providers Care Communications Superintendent Name Role Phone Jemal Bustillos Primary Care Provider [phone] REASON FOR VISIT HCC Risk Codes Social History Sex Assigned At : Social History Observation Description Sex Assigned At Male Encounters Encounter Location Date Provider Diagnosis Jemal Bustillos III, MD [address] [place] [address] [place] [address] 08/14/2024 Jemal Bustillos Plan Of Treatment Next Appt Details Provider Name:Jemal Bustillos, 03/29/2025 09:00:00 AM, [address] [place] [address] [place], [address], Provider Name:Jemal Bustillos, 07/30/2025 09:30:00 AM, [address] [place] [address] [place], [address], Progress Notes * Beck PERDOMOOB:1940 (84 yo M)Acc No.[id number]:08/14/2024 Patient: Antolin AZEVEDO :1940 A ge:84 Y S ex:Male Address:[address] [place] [address], [place], [address] * true * Date: Generated for Abner camara/Vee/Vic on: 0 02/02/2025 10:24 AM EDT
--- OUTSIDE RECORDS SUMMARY | 2024-10-11 10:30 | XMS_ITS ---
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 Name Role Phone Jemal Bustillos Primary Care Provider Allergies Allergen (clinical drug ingredient) Drug/Non Drug Allergy documented on EMR Reaction Allergy Type Onset Date Status No Known Drug Allergy Unknown Drug Allergy Active Reason For Referral Reason Evaluate and Treat Severe Left Dupuytren Left 4th and 5th finger Diagnosis 1 Dupuytrens contractu re (M72.0) Referral Organization Jemal Bustillos III, MD Referring Provider First Name Jemal Referring Provider Last Name Tressa Referring Provider Speciality Internal M edicine Referred Provider Kathie Guerrero Referred Provider Specialty Hand Surgery General Notes Rian Snow 02:37:04 PM >Referral faxed. Pt is Flo boucher Amber 10/25/2024 09:44:47 AM > Patient made appointment for 11/06/2024 @ 9:30am with Chente STEWART Referral Priority Routine Referral Appointment Date 11/06/2024 REASON FOR VISIT Left hand swollen and painful Medications Medication SIG (Take, Route, Frequency, Duration) Notes Start Date End Date Status glyBURIDE 5 MG TAKE 2 TABLETS BY MOUTH EVERY MORNING Patient has Insurance PA approval from 07/05/2024- Active Tamsulosin HCl 0.4 MG Oral Active Pioglitazone HCl 15 MG 1 tablet Orally Once a day 04/06/2024 Active Fluticasone Furoate 27.5 MCG/SPRAY 2 sprays (1 spray in each nostril) Nasally Once a day 06/07/2024 Active Meclizine HCl 25 MG 1 tablet as needed Orally every 12 hrs 06/27/2024 Active predniSONE 20 MG 1 tablet with food or milk Orally Once a day 09/21/2023 Active Albuterol Sulfate HFA 108 (90 Base) MCG/ACT 1 puff as needed Inhalation every 4 hrs 09/21/2023 Active Famotidine 20 MG 1 tablet at bedtime as needed Orally Once a day Active Clopidogrel Bisulfate 75 MG 1 tablet Orally Once a day Active Loratadine 10 MG 1 tablet Orally Once a day Active Aspirin Adult Low Dose 81 MG 1 tablet Orally Once a day Active Lisinopril 30 MG 1 tablet Orally Once a day 04/14/2023 Active Metoprolol Succinate ER 25 MG 1 tablet Orally Once a day 07/08/2023 Active Omeprazole 20 MG 1 capsule 30 minutes before morning meal Orally twice a day 07/23/2023 Active Atorvastatin Calcium 20 MG 1 tablet Orally Once a day Active metFORMIN HCl 1000 MG TAKE 1 TABLET BY MOUTH TWICE A DAY FOR 30 DAYS Active Social History Tobacco Use: Social History [...] user Heavy cigarett e smoker (20-39 cigs/day) Vital Signs Temperature 99.3 degrees Fahrenheit 10/12/19 25 Blood pressure systolic 137 mm Hg 10/12/19 25 Blood pressure diastolic 57 mm Hg 025 Heart Rate 78 /min 10/11/2024 Height 65 in 10/11/2024 Weight 128 lbs 10/11/2024 BMI 21.3 kg/m2 10/11/2024 Encounters Encounter Location Date Provider Diagnosis Jemal Bustillos III, MD [address] [place] [address] [address], [place] [address] 10/11/2024 Jemal Bustillos Tobacco dependence F17.200 ; Left hand pain M79.642 ; Dupuytrens contracture M72.0 ; Acute diarrhea R19.7 ; Type 2 diabetes mellitus without complications E11.9 ; Hearing loss, bilateral H91.93 ; COPD (chronic obstructive pulmonary disease) J44.9 ; Hyperlipidemia E78.5 ; GERD without esophagitis K21.9 ; Benign prostatic hyperplasia, unspecified whether lower urinary tract symptoms present N40.0 ; Left carotid artery stenosis I65.22 ; Arteriosclerotic coronary artery disease I25.10 and Peripheral arterial disease I73.9 Assessments Encounter Date Diagnosis (ICD Code) Assessment Notes T reatment Notes Treatment Clinical Notes 10/11/2024 Tobacco dependence (ICD-10 - F17.200) He continues to smoke about 10 cigarettes per day. I discussed smoking cessation with him at great length today. 10/11/2024 Left hand pain (ICD- 10 - M79.642) The pain is in the palm of his hand in the left 2 fingers and is reproduced by pressure on the Dupuytren's contracted tendons. I offered to refer him to our local hand surgeon. He is going to consider it. We did make a referral. 10/11/2024 Dupuytrens contractu re (ICD-10 - M72.0) He has mild to moderate bilateral Dupuytren's contracture in the palm of each hand. It has become painful in the left hand recently. 10/11/2024 Acute diarrhea (ICD- 10 - R19.7) The cause is unclear. No precipitant was identified. He is going to take 2 mg of Imodium every 3 hours. A followup was arranged. 10/11/2024 Type 2 diabetes mellitus without complications (ICD-10 - E11.9) He has been continued on his current regimen without change. His glucose levels have been acceptable. He has been compliant with his treatment and diet. 10/11/2024 Hearing loss, bilateral (ICD-10 - H91.93) There has been no change in his hearing. He did quite well over the telephone today. 10/11/2024 COPD (chronic obstructive pulmonary disease) (ICD-10 - J44.9) He continues to smoke about 10 cigarettes daily. He is comfortable breathing room air at rest. At this point he does not need home oxygen. We have discussed smoking cessation strategies at length today. He was offered medications and we'll consider it. 10/11/2024 Hyperlipidemia (ICD- 10 - E78.5) His lipids are stable. A repeat fasting lipid profile will be done periodically. No change in his regimen was necessary today. 10/11/2024 GERD without esophagitis (ICD-10 - K21.9) His reflux symptoms have been well controlled with medication. He has been sleeping through the night lately. 10/11/2024 Benign prostatic hyperplasia, unspecified whether lower urinary tract symptoms present (ICD-10 - N40.0) He rises from sleep 3 or 4 times a night to urinate. We have discussed lifestyle modification as a way to reduce nocturia. A prostate procedure has been scheduled by his urologist in the near future. 10/11/2024 Left carotid artery stenosis (ICD-10 - I65.22) He has had an endarterectomy and now has a good pulse in the neck. 10/11/2024 Arteriosclerotic coronary artery disease (ICD-10 - I25.10) He recently had an angioplasty of the right coronary artery and 2 stents put into the left system May 25, 2023 at [facility]. He says he is unable to tolerate the metoprolol as well as the Brilinta. He has had no angina since his last visit. 10/11/2024 Peripheral arterial disease (ICD-10 - I73.9) He continues to have claudication primarily in his left leg. He has seen his vascular surgeon recently. She has operated on the left leg. It is warm today. He complains of pain in his left leg with walking length of the [employer]. Plan Of Treatment Medication Medication Name Sig Start Date Stop Date Notes glyBURIDE 5 MG TAKE 2 TABLETS BY MOUTH EVERY MORNING Patient has Insurance PA approval from 07/05/2024-05/30/2025 Tamsulosin HCl 0.4 MG Oral Pioglitazone HCl 15 MG 1 tablet Orally O nce a day 04/06/2024 Fluticasone Furoate 27.5 MCG/SPRAY 2 sprays (1 spray in each nostril) Nasally Once a day 06/07/2024 Meclizine HCl 25 MG 1 tablet as needed Orally every 12 hrs 06/27/2024 predniSONE 20 MG 1 tablet with food o r milk Orally Once a day 09/21/2023 Albuterol Sulfate HFA 108 (90 Base) MCG/ACT 1 puff as needed Inhalation every 4 hrs 09/21/2023 Famotidine 20 MG 1 tablet at bedtime as needed Orally Once a day Clopidogrel Bisulfate 75 MG 1 tablet Orally Once a day Loratadine 10 MG 1 tablet Orally Once a day Aspirin Adult Low Dose 81 MG 1 tablet Orally Once a day Lisinopril 30 MG 1 tablet Orally Once a day 04/14/2023 Metoprolol Succinate ER 25 MG 1 tablet Orally Once a day 07/08/2023 Omeprazole 20 MG 1 capsule 30 minutes before morning meal Orally twice a day 07/23/2023 Atorvastatin Calcium 20 MG 1 tablet Orally Once a day metFORMIN HCl 1000 MG TAKE 1 TABLET BY MOUTH TWICE A DAY FOR 30 DAYS Referrals Referral Date Details 10/11/2024 10/11/2024, Evaluate and Treat Severe Left Dupuytren Left 4th and 5th finger, Kathie Guerrero Next Appt Details Follow Up: As Scheduled, Michelle son: OV Provider Name:Jemal Bustillos, 03/29/2025 09:00:00 AM, [address] [place] [address] [address], [place], [phone], Provider Name:Jemal Bustillos, 07/30/2025 09:30:00 AM, [address] [place] [address] [address], [place], [phone], Progress Notes * Beck MENDEZOB:1940 (84 yo M)Acc No.[id number]:10/11/2024 Progress Notes Patient: Antolin AZEVEDO Provider: Sapna Bustillos MD :1940 A ge:84 Y S ex:Male Date:10/11/2024 Address:[address] [place] [id number] Subjective: * Chief Complaints: * L eft hand swollen and painful * HPI: C OVID-19 Screening: He comes to the office today saying he feels terrible. He has several new complaints. He has pain in the left fourth and fifth fingers of uncertain cause. He is breathing comfortably, but says he has had diarrhea recently several times a day. He has had 2 episodes of incontinence when he could not get to the bathroom in time. The stools are described as Brown but quit. Because of this he stopped taking his metformin and his pravastatin. I have placed him on Imodium and ordered a stool culture. He has not traveled anywhere lately nor drunk water a lot of wells R streams. He had a TURP in July and is pathology was negative for prostate cancer. He is getting out of bed still 3 times a night but it was 5 times. He denies any dysuria. We have discussed lifestyle modification she could make to try to reduce nocturia. He will be back to see the urologist in the near future. A followup appointment was arranged. He was instructed to take Imodium every 3 hours while awake his lungs he has diarrhea. Questions H ave you had any new onset fever, chills, cough, congestion, sore throat, shortness of breath, muscle aches? N o * ROS: G eneral/Constitutional: pain L eft hand fourth and fifth fingers. C hills d enies. F atigue a dmits. F ever d enies. E NT: Decreased hearing m ild. R espiratory: Cough d enies. C ardiovascular: Chest pain with exertion d enies. D yspnea on exertion?denies. S hortness of breath w ith exertion. G astrointestinal: Constipation o ccasional. D ecreased appetite d enies. D iarrhea d enies. H eartburn d enies. N ausea d enies. R ectal bleeding d enies. V omiting d enies. H ematology: bruising d enies. p etechiae d enies. S wollen glands n one have been noted. G enitourinary: Frequent urination t hree times a night. M usculoskeletal: Muscle aches d enies. P ainful joints L eft fourth and fifth fingers. S ciatica d enies. W eakness d enies. S kin: Itching d enies. R dali d enies. S kin lesion(s)?denies. N eurologic: Difficulty speaking d enies. D izziness d enies.?Headache d enies. L ow back pain d enies. P sychiatric: Depressed mood w hich is moderate. * Medical History: * Surgical History: b ilateral cataracts left carotid endarterectomy [facility], Dr. Alonso 09/2017Cystoscopy with left ureteral stent subsequently removed, ureterolithiasis ardiac cath with 2 stent placements at [facility] holecystectomy TURP 07/2024 * Hospitalization/Major Diagno stic Procedure: T IA 08/2017Hospitalized at [facility] for prostate surgery * Family History: F ather: 72 yrs, Diabetes, Heart failure, cancer, diagnosed with DM, Cancer. M other: alive 68 yrs, diagnosed with DM, Cancer. C hildren: alive. S on(s): alive. 2 brother(s) , 3 sister(s) . 3 son(s) - healthy. . One brother is on dialysis. His 3 [...] illness. He is tobacco dependent. * Social History: T obacco Use: T obacco Control (Standard) T obacco use: C urrent smoker H ow often do you smoke cigarettes? E very day H ow many cigarettes a day do you smoke? 2 1-30 H ow soon after you wake up do you smoke your first cigarette? 6 -30 minutes A re you interested in quitting? N ot ready to quit A dditional Findings: Tobacco user H eavy cigarette smoker (20-39 cigs/day) Marisol nieves was to Anamaria (Alicia) for 49 years and is now . They had three sons and 2 grandchildren. 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 He smoked cigarettes but does not drink alcohol or take drugs. He has no occupational exposures and no travel history. Smokin.5 packs per day Smoking: Patient smokes 15-20 cigarettes a day. * Medications: T akingglyBURIDE 5 MG Tablet TAKE 2 TABLETS BY MOUTH EVERY MORNING , Notes to Pharmacist: Patient has Insurance PA approval from 07/05/2024-05/30/2025metFORMIN HCl 1000 MG Tablet TAKE 1 TABLET [...] tablet as needed Orally every 12 hrs Medication List reviewed and reconciled with the patientTaking glyBURIDE 5 MG Tablet TAKE 2 TABLETS BY MOUTH EVERY MORNING , Notes to Pharmacist: Patient has Insurance PA approval from 07/05/2024-05/30/2025Taking metFORMIN HCl 1000 MG Tablet TAKE 1 [...] tablet as needed Orally every 12 hrs Medication List reviewed and reconciled with the patient * Allergies: N o Known Drug Allergyno[Allergies Verified] Objective: * Vitals: H t: 65, Wt:128, BMI:21.3, BP:137/57, HR:78, Temp:99.3, Ht-cm: 165.1, Wt-k.06. * P ast Orders: I maging:Diabetic Eye Exam (Order Date - 07/18/2024) (Performed Date - 07/18/2024) Result: undefined Lab:URINE DIP STICK * Collection Date 07/28/2024 [...] -) postitive Menstrating NR N/A n/a * Lab:Pathology * Collection Date 07/24/2024 05/26/2024 10/12/2022 Collection Time 12:59 PM 08:15 AM 09:45 AM Order Date 07/24/2024 05/26/2024 10/12/2022 * Lab:Glucose, Whole Blood * Collection Date 07/24/2024 05/26/2024 05/26/2024 Collection Time 11:37 AM 08:36 AM 07:35 AM Order Date 07/24/2024 05/26/2024 05/26/2024 Glucose, Whole Blood 131 H (Ref Range: 60-115 mg/dL) 180 H (Ref Range: 60-115 mg/dL) 185 H (Ref Range: 60-115 mg/dL) * Examination: G eneral Examination: GENERAL APPEARANCE: p leasant, well nourished, well developed, in no acute distress, calm and relaxed, elderly man. HEAD: a traumatic, normocephalic. EYES: e marcus, perrla, anicteric, conjugate. EARS: W ith mild hearing loss is. NOSE: s eptum intact. ORAL CAVITY: n ormal, unremarkable. NECK/THYROID: n o jugular venous distention, no carotid bruit, thyroid normal. LYMPH NODES: n o enlarged lymph nodes,spleen normal. SKIN: n o suspicious lesions, anicteric. HEART: n o clicks, gallops, murmurs, or rubs, regular rhythm, S1, S2 normal, no s3, or vascular bruits. LUNGS: d iminished breath sounds throughout, scattered inspiratory wheezes, rhonchi on the LEFT, rhonchi on the RIGHT. BREASTS: no masses palpable bilaterally. ABDOMEN: b owel sounds normal, no ascites, no organomegaly, no mass. RECTAL EXAM: n ot examined. MUSCULOSKELETAL: e xtremities unremarkable, no clubbing, cyanosis or edema, Bilateral Dupuytren's contracture, The pain in the fourth and fifth fingers of the left hand is reproduced by pressure on the Dupuytren's contracted tendons.. PERIPHERAL PULSES: D iminished in the lower extremities.? NEUROLOGIC: a lert and oriented, cranial nerves 2-12 grossly intact, deep tendon reflexes 2+ symmetrical, motor strength normal upper and lower extremities, sensory exam intact. PSYCH: a lert, oriented. Assessment: * Assessment: 1. T obacco dependence - F17.200 (Primary) N otes :He continues to smoke about 10 cigarettes per day. I discussed smoking cessation with him at great length today. 2 . L eft hand pain - M79.642 N otes :The pain is in the palm of his hand in the left 2 fingers and is reproduced by pressure on the Dupuytren's contracted tendons. I offered to refer him to our local hand surgeon. He is going to consider it. We did make a referral. 3 . D upuytrens contracture - M72.0 N otes :He has mild to moderate bilateral Dupuytren's contracture in the palm of each hand. It has become painful in the left hand recently. 4 . A cute diarrhea - R19.7 N otes :The cause is unclear. No precipitant was identified. He is going to take 2 mg of Imodium every 3 hours. A followup was arranged. 5 . T ype 2 diabetes mellitus without complications - E11.9 N otes :He has been continued on his current regimen without change. His glucose levels have been acceptable. He has been compliant with his treatment and diet. 6 . H earing loss, bilateral - H91.93 N otes :There has been no change in his hearing. He did quite well over the telephone today. 7 . C OPD (chronic obstructive pulmonary disease) - J44.9 N otes :He continues to smoke about 10 cigarettes daily. He is comfortable breathing room air at rest. At this point he does not need home oxygen. We have discussed smoking cessation strategies at length today. He was offered medications and we'll consider it. 8 . H yperlipidemia - E78.5 N otes :His lipids are stable. A repeat fasting lipid profile will be done periodically. No change in his regimen was necessary today. 9 . G ERD without esophagitis - K21.9 N otes :His reflux symptoms have been well controlled with medication. He has been sleeping through the night lately. 1 0. B enign prostatic hyperplasia, unspecified whether lower urinary tract symptoms present - N40.0 N otes :He rises from sleep 3 or 4 times a night to urinate. We have discussed lifestyle modification as a way to reduce nocturia. A prostate procedure has been scheduled by his urologist in the near future. 1 1. L eft carotid artery stenosis - I65.22 N otes :He has had an endarterectomy and now has a good pulse in the neck. 1 2. A rteriosclerotic coronary artery disease - I25.10 N otes :He recently had an angioplasty of the right coronary artery and 2 stents put into the left system May 25, 2023 at [facility]. He says he is unable to tolerate the metoprolol as well as the Brilinta. He has had no angina since his last visit. 1 3. P eripheral arterial disease - I73.9 N otes :He continues to have claudication primarily in his left leg. He has seen his vascular surgeon recently. She has operated on the left leg. It is warm today. He complains of pain in his left leg with walking length of the [employer] store. Plan: * Treatment: 2. D upuytrens contracture Referral To:Kathie Guerrero Hand Surgery Reason:Evaluate and Treat Severe Left Dupuytren Left 4th and 5th finger 3. O thers Continue metFORMIN HCl Tablet, 1000 MG, TAKE 1 TABLET BY MOUTH TWICE A DAY FOR 30 DAYS. * Procedure Codes: * Preventive Medicine: Counseling: S moking/Tobacco Use Patient counseled on the dangers of tobacco use and urged to quit. 0 10/11/2024 Patient Lifestyle Goals P edith does not want to quit Treatment Goals S et a quit date, Cut down by 1 cigarette a week Barriers S ocial smoker, Stress, Not interested in quitting Self-Management Plan M raudel a plan to cut down number of cigarettes over time and set a date to work towards quitting DM Care Plan: P atient Lifestyle Goals P atient wants to be able to manage diabetes without too much effort. T reatment Goals B lood Sugars less than < 115, HbA1C < 7.0. B arriers n o barriers. S elf-Managment Goals I ncrease exercise to 3 times a week for 30 mins, Take blood sugars twice daily and keep a log. Bring log in to next appointment.? COPD Care Plan: P atient Lifestyle Goals B e able to be more active with friends and family, Reduce number of ED and hospitalizations, Relieve symptoms and improve quality of life. T reatment Goals Q uit Smoking. B arriers n o barriers. S elf-Managment Goals E at a healthy diet, Get an air purifier for the rooms you are in the most, Make a plan for quitting smoking. * Follow Up: A s Scheduled (Reason: OV) * Images: * Sign off status: Completed true * Provider: Sapna Bustillos MD Date: 0 10/11/2024 Generated for Printi ng/Vee/eTransmitting on: 0 02/02/2025 10:23 AM EDT History and Physical Notes * HPI (History of Present Illness) Category Sub-Category Detail Notes COVID-19 Screening Questions Have you had any new onset fever, chills, cough, congestion, sore throat, shortness of breath, muscle aches?: No Examination Category Sub-Category Detail Notes General Examination GENERAL APPEARANCE: pleasant , well nourished, well developed, in no acute distress, calm and relaxed, elderly man HEAD: atraumatic, normocep halic EYES: eomi, perrla, anicte estela, conjugate EARS: With mild hearing lo ss is NOSE: septum intact NECK/THYROID: no jugular venous di stention, no carotid bruit, thyroid normal HEART: no clicks, gallops, murmurs, or rubs, regular rhythm, S1, S2 normal, no s3, or vascular bruits LUNGS: diminished breath so unds throughout, scattered inspiratory wheezes, rhonchi on the LEFT, rhonchi on the RIGHT ABDOMEN: bowel sounds normal, no ascites, no organomegaly, no mass NEUROLOGIC: alert and oriented, cranial nerves 2-12 grossly intact, deep tendon reflexes 2+ symmetrical, motor strength normal upper and lower extremities, sensory exam intact SKIN: no suspicious lesion s, anicteric PERIPHERAL PULSES: Diminished in the lo wer extremities BREASTS: no masses palpable b ilaterally MUSCULOSKELETAL: extremities unremark able, no clubbing, cyanosis or edema, Bilateral Dupuytren's contracture, The pain in the fourth and fifth fingers of the left hand is reproduced by pressure on the Dupuytren's contracted tendons. LYMPH NODES: no enlarged lymph no ines,spleen normal RECTAL EXAM: not examined PSYCH: alert, oriented ORAL CAVITY: normal, unremarkable Consultation Request Notes Referral Date Referring Provider Referred Provider Not wily 10/11/2024 Jemal Bustillos Allison Evaluate and Treat Severe Left Dupuytren Left 4th and 5th finger
--- OUTSIDE RECORDS SUMMARY | 2024-10-25 05:45 | XMS_ITS ---
Author Organization Jemal Bustillos III, MD Address [address] [place] [address] [place] [address] Care Team Providers Care Beam Dyer Operator Name Role Phone Jemal Bustillos Primary Care Provider Allergies Allergen (clinical drug ingredient) Drug/Non Drug Allergy documented on EMR Reaction Allergy Type Onset Date Status No Known Drug Allergy Unknown Drug Allergy Active Results Component Value Reference Range Notes Electrolytes Reviewed date:12/30/2024 08:44:06 PM Interpretation: Performing Lab:[facility], [address] [place] [address] Notes/Report: Sodium 137 135-145 mmol/L Potassium 5.2 [...] Status W/U Status Risk Notes Problem Hyperkalemia (49921681) Hyperkalemia (E87.5) Active confirmed His potassium level [...] Date Provider Diagnosis Jemal Bustillos III, MD [address] [place] [address] [address] [place], [place] [address] 10/25/2024 Jemal Bustillos Tobacco dependence F17.200 ; [...] [facility] Provider Name:Jemal Bustillos, 03/29/2025 09:00:00 AM, [address] [place] [address] [address], [place], [phone], Provider Name:Jemal Bustillos, 07/30/2025 09:30:00 AM, [address] [place] [address] [address], [place], [address], Progress Notes * Hortensia PERDOMOileDOB:1940 (84 yo M)Acc No.[id number]:10/25/2024 Progress Notes Patient: Antolin AZEVEDO Provider: Sapna Bustillos MD :1940 A ge:84 Y S ex:Male Date:10/25/2024 Address:[address] [place] [phone] Subjective: * Chief Complaints: * F ollow [...] History: b ilateral cataracts left carotid endarterectomy [facility], Dr. Alonso 09/2017Cystoscopy with left ureteral stent subsequently removed, ureterolithiasis ardiac cath with 2 stent placements [place] [facility] [place] T[place]P 07/2024 * Hospitalization/Major Diagno stic Procedure: T [place] 08/2017Hospitalized at [facility] for prostate surgery * Family History: F [...] sons and 2 grandchildren. 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 He smoked cigarettes but does not drink [...] L (Ref Range: >40 mg/dL) * Lab:[facility] [place]. P[facility] Fast * Collection Date 10/20/2024 [...] 10/25/2024 Generated for Abner camara/Vee/Daniellaitting on: 0 02/02/2025 10:23 AM EDT History [...]
--- OUTSIDE RECORDS SUMMARY | 2024-10-31 14:00 | XMS_ITS ---
Author Organization Jemal Bustillos III, MD Address [address] [place] [address] [place] [address] Care Team Providers Care Medical Technicians Name Role Phone Jemal Bustillos Primary Care Provider REASON FOR VISIT Telehealth Social History Sex Assigned At : Social History Observation Description Sex Assigned At Male Encounters Encounter Location Date Provider Diagnosis Jemal Bustillos III, MD [address] [place] [address] [place] [address] 10/31/2024 Jemal Bustillos Plan Of Treatment Next Appt Details Provider Name:Jemal Bustillos, 03/29/2025 09:00:00 AM, [address] [place] [address] [place], [address], Provider Name:Jemal Bustillos, 07/30/2025 09:30:00 AM, [address] [place] [address] [place], [address], Progress Notes * Beck PERDOMOOB:1940 (84 yo M)Acc No.[id number]:10/31/2024 Patient: Antolin AZEVEDO Provider: Sapna Bustillos MD :1940 A ge:84 Y S ex:Male Date:10/31/2024 Address:[address] [place] [address], [id number] Subjective: * Chief Complaints: * 1 . [...] 0 10/31/2024 Generated for Abner camara/Vee/Daniellaitting on: 0 02/02/2025 10:24 AM EDT
--- OUTSIDE RECORDS SUMMARY | 2024-12-26 05:30 | XMS_ITS ---
Author Organization Jemal Bustillos III, MD Address [address] [place] [address] [place] [address] Care Team Providers Care Stock Worker And Deliverer Name Role Phone Jemal Bustillos Primary Care [...] Date Provider Diagnosis Jemal Bustillos III, MD [address] [place] [address] [place] [address] 12/26/2024 Jemal Bustillos Tobacco dependence F17.200 ; [...] Up: 3 Months, Reason: OV Provider Name:Jemal Bustillos, 03/29/2025 09:00:00 AM, [address] [place] [address] [address], [place], [address], Provider Name:Jemal Bustillos, 07/30/2025 09:30:00 AM, [address] [place] [address] [address], [place], [address], Progress Notes * Beck PERDOMOOB:1940 (84 yo M)Acc No.[id number]:12/26/2024 Progress Notes Patient: Antolin AZEVEDO Provider: Sapna Bustillos MD :1940 A ge:84 Y S ex:Male Date:12/26/2024 Address:[address] [place] [id number] Subjective: * Chief Complaints: * D iabetesHearing [...] History: b ilateral cataracts left carotid endarterectomy [facility], Dr. Alonso 09/2017Cystoscopy with left ureteral stent subsequently removed, ureterolithiasis ardiac cath with 2 stent placements at [facility] holecystectomy TURP 07/2024 * Hospitalization/Major Diagno stic Procedure: T IA 08/2017Hospitalized at [facility] for prostate surgery * Family History: [...] sons and 2 grandchildren. 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 He smoked cigarettes but does [...] 37 L (Ref Range: >40 mg/dL) * Lab:[facility] [...] 0 12/26/2024 Generated for Abner camara/Vee/Daniellaitting on: 0 02/02/2025 10:25 AM EDT History and Physical Notes * [...] RECTAL EXAM: not examined PSYCH: alert, oriented: perinatal coordinator perative with exam: cognitive function intact: good eye contact: speech clear: thought process logical, goal directed ORAL CAVITY: normal, unremarkable
--- NOTE | 2025-02-02 09:53 | MHC.OFFVIS ---
Intake Visit Reasons: 6m/PSA/PVR Intake Note: Patient is present for:6mo follow up Urology Medication:none Blood Thinner:ASPIRIN ultrasound done: 01/22/25 today's PVR: 11mls Sales Advisor Required: No Accompanied by: Self / Same As Patient Allergies No Known Allergies (No Known Allergies*) Allergy (Verified 02/02/25 09:56) HPI Comments Details: Antolin is a pleasant male. He is a patient of Dr. Bustillos. He is seen for the following urologic conditions - renal cysts - lower urinary tract symptoms - nephrolithiasis Underwent prostate procedure in July PVR 10 cc UA trace leuks, glucose 2+ on glyburide and metformin however not on SGLT2 Still with nocturia and urge Describing overactive bladder symptoms Trial solifenacin Diabetic Lower urinary tract symptoms Bladder ultrasound 50 cc residual, 30 cc prostate with calcifications 07/25 plasma button PSA 06/22 0.8 Nephrolithiasis Renal imaging with large stones on left side Bilateral cysts CT angiogram with 2 cm stone left renal pelvis - CT 06/22 oz 2 cm stone within left renal pelvis - 03/22 renal ultrasound 4 mm stone bilateral Intervention - 10/20 left USR Composition - 10/20 calcium oxalate monohydrate 80% Did not tolerate potassium citrate On vitamin B6 PFSH Medical History CAD (coronary artery disease) Nephrolithiasis NSTEMI (non-ST elevated myocardial infarction) Nausea Acute cholecystitis Hyperlipidemia Peripheral arterial disease TIA (transient ischemic attack) COPD (chronic obstructive pulmonary disease) Hearing loss Elevated cholesterol HTN (hypertension) Staghorn calculus Enlarged prostate Diabetes mellitus, type II Renal cysts, acquired, bilateral History of kidney stones Rotator cuff impingement syndrome Surgical History Hx of cardiac catheterization Hx of cystoscopy History of left-sided carotid endarterectomy Hx of cataract surgery Hx of lithotripsy History of surgery Social History Household Members: None Household Members Other:: 0 Housing: House Housing Other:: apt. in duplex Are you a primary child care associate teacher to a significant other at home: No Do you presently have visiting nurse or other home services: No Patient Tobacco Use Status: Current everyday Tobacco user Tobacco use type: Cigarette Cigarette Packs Per Day: 1.5 Cigarettes Per Day: 30.0 Years Smoked: 60 e-Cigarette/Vaping Use: Never Used Advance Directives Date on File: 09/29/22 service: Yes Current occupational status: employed Review of Systems Const Denies chills and Denies fever(s) Card Reports no additional complaints and Denies syncope Resp Denies cough GI Denies abdominal pain and Denies heartburn Reports as per HPI and Denies change in libido Neuro Denies syncope Psych Denies change in libido Endo Denies change in libido Physical Exam Const General: cooperative, healthy appearing, comfortable and no acute distress Orientation/consciousness: patient oriented x3 HEENT Face and sinus: Yes normal facial exam Mouth: moist mucous membranes Neck Neck: Yes normal visual inspection, Yes full ROM and Yes trachea midline Chest Chest palpation & inspection: normal inspection of the chest Resp Effort & Inspection: normal respiratory effort, able to speak in complete sentences and no respiratory distress GI Inspection: Yes normal to inspection Back/Spine/Pelvis Cervical Spine: normal cervical lordosis Thoracic/Lumbar Spine: thoracic and lumbar spine normal to inspection Skin General skin exam: no rashes or lesions noted Neuro General: patient oriented x3, gait normal, tone normal and moves all extremities Extrem General: Yes normal to inspection and Yes capillary refill normal Office Procedures Post Void Residual Post Residual Void Post Void Residual (PVR): 11 [id number] Void Residual by ultrasound Results AMB Urinalysis, Automated UA Leukoctes 15 Panfilo/uL Last Edit by MYRA Terry on 02/02/25 10:06 UA Nitrite Negative Last Edit by MYRA Terry on 02/02/25 10:06 UA Urobilinogen 0.2 mg/dL Last Edit by MYRA Terry on 02/02/25 10:06 UA Protein 30 mg/dL Last Edit by MYRA Terry on 02/02/25 10:06 UA pH 6.0 Last Edit by MYRA Terry on 02/02/25 10:06 UA Blood 0 Beka/uL Last Edit by MYRA Terry on 02/02/25 10:06 UA Specific [place] 1.015 Last Edit by MYRA Terry on 02/02/25 10:06 UA Ketone Negative Last Edit by MYRA Terry on 02/02/25 10:06 UA Bilirubin 0 mg/dL Last Edit by MYRA Terry on 02/02/25 10:06 UA Glucose 500 mg/dL Last Edit by MYRA Terry on 02/02/25 10:06 Results Reviewed Results Reviewed: Laboratory Last Values Urine pH (Auto) 6.0 02/02/25 10:05 Specific [place] (Auto) 1.015 02/02/25 10:05 Urine Protein (Auto) 30 mg/dL 02/02/25 10:05 Glucose (UA)(Auto) 500 mg/dL 02/02/25 10:05 Urine Ketones (Auto) Negative 02/02/25 10:05 Urine Blood (Auto) 0 [place]ek[place]/uL 02/02/25 10:05 Urine Nitrite (Auto) Negative 02/02/25 10:05 Urine Bilirubin (Auto) 0 mg/dL 02/02/25 10:05 Urine Urobilinogen (Auto) 0.2 mg/dL 02/02/25 10:05 Leukocyte Esterase (Auto) 15 Panfilo/uL 02/02/25 10:05 Assessment & Plan Assessment & Plan (1) Overactive bladder: Code(s): N32.81 - Overactive bladder Category: Medical Plan Three-month follow-up PVR Orders: Orders AMB Post Void Residual by ultrasound Today N13.8 - Other obstructive and reflux uropathy, N40.1 - Benign prostatic hyperplasia with lower urinary tract symptoms AMB Urinalysis Automated Today Z13.9 - Encounter for screening, unspecified Medications: New solifenacin 5 mg PO DAILY 30 tabs 2RF 30 days N32.81 - Overactive bladder Patient Instructions: This note is constructed using voice recognition software. While every effort has been made to ensure accuracy steam pan sponger errors may have been included. Imaging studies, laboratory and physical exam results were discussed and reviewed in detail. No major barriers to patient understanding were identified. An opportunity to ask questions regarding the treatment plan was provided. All questions were answered. The patient expressed understanding and agreement with the above treatment plan. The patient is aware they should contact our office by phone for worsening of their current condition or the appearance of new urologic symptoms. Compliance is encouraged with any medications and followup testing that is ordered. It is a privilege to participate in the urologic care of your patient. If you have any questions or concerns regarding treatment for the above conditions, or other urologic issues, please do not hesitate to contact me. The office telephone contact is [phone]. Sincerely, Dr Les Alcantar MD, [facility] Care for the Genitourinary System Coding Level of Care Code Est Pt Level 4 (88023) Diagnoses Overactive bladder N32.81 CPT Codes Post Residual Void - PVR CPT Code: 18066-Jifh Void Residual by ultrasound ([id number])
--- OUTSIDE RECORDS SUMMARY | 2025-02-02 10:23 | XMS_ITS | Patient Health Record ---
Author Organization Jemal Bustillos III, MD Address [address] [place] [address] Care Team Providers Care Section 8 Property Manager Name Role Phone Jemal Bustillos Primary Care Provider [phone] Allergies Allergen (clinical drug ingredient) Drug/Non Drug [...] 0.2 - 1.3 BLD +++ Negative - Electrolytes Reviewed date:12/30/2024 08:44:06 PM Interpretation: Performing Lab:[facility], [address] [place] [address] Notes/Report: Sodium 137 135-145 mmol/L Potassium 5.2 3.3-5.1 mmol/L Chloride 102 96-108 mmol/L Carbon Dioxide 27 22-29 mmol/L Anion Gap 13 12-20 Complete Blood Count Auto Di ff Reviewed date:03/13/2024 07:51:08 AM Interpretation: Performing Lab:[facility], [address] [place] [phone] Notes/Report: White Blood Count 9.7 4.8-10.8 X10*3/uL [...] Panel Reviewed date:03/13/2024 07:51:08 AM Interpretation: Performing Lab:[facility], [address] [place] [phone] Notes/Report: Sodium 139 135-145 mmol/L Potassium 5.5 3.3-5.1 mmol/L Chloride 109 96-108 mmol/L Carbon Dioxide 22 22-29 mmol/L Anion Gap 14 12-20 Blood Urea Nitrogen 26 9-16 mg/dL Creatinine 1.13 0.5-1.4 mg/dL Estimated Glomerular Filt Rate > 60 NOTE: For -Slovenian individuals, multiply the result by 1.210. Chronic [...] Panel Reviewed date:03/13/2024 07:51:08 AM Interpretation: Performing Lab:[facility], [address] [place] [phone] Notes/Report: Triglycerides 174 <150 mg/dL Desirable Triglyceride: [...] Panel Reviewed date:03/13/2024 07:51:08 AM Interpretation: Performing Lab:[address] [address] Notes/Report: Sodium 137 135-145 mmol/L Potassium 5.3 3.3-5.1 mmol/L Chloride 106 96-108 mmol/L Carbon Dioxide 24 22-29 mmol/L Anion Gap 12 12-20 Blood Urea Nitrogen 29 9-16 mg/dL Creatinine 1.05 0.5-1.4 mg/dL Estimated Glomerular Filt Rate > 60 NOTE: For -Slovenian individuals, multiply the result by 1.210. Chronic Kidney Disease: Estimated GFR < 60 mL/min/1.73m2 Severe Kidney Disease: Estimated GFR < 15 mL/min/1.73m2 Glucose Random 338 60-115 mg/dL Calcium 9.6 8.4-10.2 mg/dL Magnesium Reviewed date:03/13/2024 07:51:08 AM Interpretation: Performing Lab:[facility], [address] [place] [phone] Notes/Report: Magnesium 1.9 1.6-2.6 mg/dL Complete Blood Count Auto Di ff Reviewed date:05/06/2024 06:59:37 AM Interpretation: Performing Lab:[facility], [address] [place] [phone] Notes/Report: White Blood Count 11.6 4.8-10.8 X10*3/uL [...] Panel Reviewed date:05/06/2024 06:59:37 AM Interpretation: Performing Lab:[facility], [address] [place] [phone] Notes/Report: Sodium 135 135-145 mmol/L Potassium 4.9 [...] Culture Reviewed date:05/06/2024 06:59:37 AM Interpretation: Performing Lab:[facility], [address] [place] [phone] Notes/Report: Urine Culture Report Result Urine Culture 10,000 to 50,000 cfu/ml Urine Culture Mixed bacterial lisa a characteristic of Urine Culture urogenital contamination. SARS-CoV2/FLU/RSV Reviewed date:05/06/2024 06:59:37 AM Interpretation: Performing Lab:[address] [address] Notes/Report: Influenza A PCR NEGATIVE Negative Influenza [...] by authorized laboratories. Testing performed on the Nitro GeneXpert utilizing real-time RT-PCR. All SARS CoV2 and positive influenza A/B results are reported to [facility]. UA ClnCatch+Micro w/rflx Cul t Reviewed date:05/06/2024 06:59:37 AM Interpretation: Performing Lab:[address] [address] Notes/Report: [id number] Urine, Clean Catch Color Urine Yellow Appearance Urine Clear PH 5.0 5.0-9.0 Glucose Urine UA 250 Negative mg/dL Urine Blood Negative Negative Specific [place] - Urine 1.015 1.005-1.025 Urine Protein 30 [...] date:05/06/2024 06:59:37 AM Interpretation: Performing Lab: Notes/Report: [address] [address] Ultrasound Report Signed Patient: Antolin Perdomo MR#: [id number] 680 : 1940 Acct:[id number] Age/Sex: 83 / M ADM Date: 05/04/24 Loc: HO.ED Attending Dr: Ordering Physician: Denia Luong MD Date of Service: 05/04/24 Procedure(s): US abdomen limited Accession Number(s): [id number] cc: Denia Luong MD; Jemal Bustillos MD [...] by: Polo Riley MD 05/04/2024 02:21 PM [facility] [place]ictated By: Polo Wu MD Signed By: <Electronically signed by Polo Weeks MD in OV> 05/04/24 1421 DD/ 1317 TD/TT: 05/04/24 1324 Char Belt Operator: [place] [address] Ultrasound Report Signed Patient: Radha Perdomo MR#: [id number] 680 : 1940 Acct:[id number] Age/Sex: 83 / M ADM Date: 05/04/24 Loc: HO.ED Attending Dr: Ordering Physician: Denia Luong MD Date of Service: 05/04/24 Procedure(s): US abdomen limited Accession Number(s): [id number] cc: Denia Luong MD ; Jemal Bustillos [...] ascites. US/US abdomen limited IMPRESSION: Cholelithiasis and u p to normal limits gallbladder wall. 3 cm exophytic lesio n, upper pole right kidney, nonspecific. According to prior CT October 21, 2023 this lesion is cystic. No ascites. Electronically carter d by: Polo Riley MD 05/04/2024 02:21 PM [facility] [place] Dictated By: Polo Camacho MD Signed By: <Electronically signed by Polo Weeks MD in OV> 05/04/24 1421 DD/ 1317 TD/TT: 05/04/24 1324 Char Belt Operator: XR chest 2V Reviewed date:05/06/2024 06:59:37 AM Interpretation: Performing Lab: Notes/Report: [address] [address] XRay Report Signed Patient: Antolin Perdomo MR#: [id number] 680 : 1940 Acct:[id number] Age/Sex: 83 / M ADM Date: 05/04/24 Loc: HO.ED Attending Dr: Ordering Physician: Denia Luong MD Date of Service: 05/04/24 Procedure(s): XR chest 2V Accession Number(s): [id number] cc: Denia Luong MD; Jemal Bustillos MD [...] 05/04/24 1113 DD/ 1048 TD/TT: 05/04/24 1108 Char Belt Operator: [address] [address] XRay Report Signed Patient: Radha Perdomo MR#: [id number] 680 : 1940 Acct:[id number] Age/Sex: 83 / M ADM Date: 05/04/24 Loc: HO.ED Attending Dr: Ordering Physician: Denia Luong MD Date of Service: 05/04/24 Procedure(s): XR elver st 2V Accession Number(s): [id number] cc: Denia Luong MD ; Jemal Bustillos [...] 05/04/24 1113 DD/ 1048 TD/TT: 05/04/24 1108 Char Belt Operator: US bladder Reviewed date:05/30/2024 11:42:26 AM Interpretation: Performing Lab: Notes/Report: [address] [address] Ultrasound Report Signed Patient: Antolin Perdomo MR#: [id number] 680 : 1940 Acct:[id number] Age/Sex: 84 / M ADM Date: 05/18/24 Loc: HO.US Attending Dr: Les Alcantar MD Ordering Physician: Les Alcantar MD Date of Service: 05/18/24 Procedure(s): US bladder Accession Number(s): [id number] cc: Les Alcantar MD; Jemal Bustillos MD [...] 05/28/2024 09:01 AM EST Dictated By: Lana Bojra MD Signed By: <Electronically signed by Lana Borja MD in OV> 05/28/24 0901 DD/ 1417 TD/TT: 05/18/24 1426 Char Belt Operator: [address] [address] Ultrasound Report Signed Patient: Radha Perdomo MR#: [id number] 680 : 1940 Acct:[id number] Age/Sex: 84 / M ADM Date: 05/18/24 Loc: HO.US Attending Dr: Geovanni Rascon MD Ordering Physician: Les Alcantar MD Date of Service: 05/18/24 Procedure(s): US bladder Accession Number(s): [id number] cc: Les Alcantar MD; Jemal Bustillos MD [...] coarse calcifications. US/US bladder IMPRESSION: Postvoid bladder vol ume is 65 mL. Prostate volume 25 m L. Echogenic foci within the prostate gland are characteristic of coarse calcifications. . Electronically caretr d by: Lana Borja MD 05/28/2024 09:01 AM [facility] [place]ict[place] By: Lana Borja MD Signed By: <Electronically signed by Lana Borja MD in OV> 05/28/24 0901 DD/ 1417 TD/TT: 05/18/24 1426 Char Belt Operator: Glucose, Whole Blood Reviewed date:05/26/2024 04:19:01 PM Interpretation: Performing Lab:[address] [address] Notes/Report: Glucose, Whole Blood 49 60-115 mg/dL METER # : [id number] Pathology Reviewed date:05/30/2024 11:42:26 AM Interpretation: Performing Lab:[address] [address] Notes/Report: --- Name: Antolin Perdomo Age/Sex: 84/M : 1940 [id number] Unit#: [id number] Attend Dr: Paulino Garcia MD Re05/26/24 Status : [facility] Location: [facility] Disch: --- SPEC : [id number] RECD : 05/26/24 STATUS: ZACKARY GILL NUM: [id number] KRYSTAL: 05/26/24 [facility] DR: Paulino Garcia MD ENTERED: 05/26/24 55 [...] measures up to 0.15 cm in thickness. Cart Driver sections are submitt ed in a cassette labeled A1 to include the margin of resection of the cystic duct. CEDS Copies To: Jemal Bustillos MD [address] [place] [address], [address] [place] [address] Paulino Garcia MD [facility] [address] [place] [address] CONTINUED ON NEXT PAGE --- Name: Antolin Perdomo Age/Sex: 84/M : 1940 Unit#: [id number] Attend Dr: Paulino Garcia MD Re05/26/24 Status : [facility] Location: [facility] Disch: --- SPEC : [id number] RECD : 05/26/24 STATUS: ZACKARY GILL NUM: [id number] KRYSTAL: 05/26/24 [facility] DR: Paulino Garcia MD ENTERED: 05/26/24 57 SP TYPE: Surgical OTHR DR: Jemal Bustillos MD ORDERED: Chanelle Meraz L3 --- Signed (signature on file) Katya Darcy 05/29/24 1255 --- END OF REPORT Glucose, Whole Blood Reviewed date:05/26/2024 04:19:01 PM Interpretation: Performing Lab:[facility], [address] [place] [phone] Notes/Report: Glucose, Whole Blood 185 60-115 mg/dL METER # : [id number] Glucose, Whole Blood Reviewed date:05/26/2024 04:19:01 PM Interpretation: Performing Lab:[facility], [address] [place] [phone] Notes/Report: Glucose, Whole Blood 180 60-115 mg/dL METER # : [id number] Diabetic Eye Exam Reviewed date:07/24/2024 02:48:35 PM Interpretation:undefined Performing Lab: Notes/Report: undefined Glucose, Whole Blood Reviewed date:08/05/2024 09:22:41 AM Interpretation: Performing Lab:[facility], [address] [place] [phone] Notes/Report: Glucose, Whole Blood 131 60-115 mg/dL METER # : [id number] Pathology Reviewed date:08/05/2024 09:22:41 AM Interpretation: Performing Lab:[facility], [address] [place] [address] Notes/Report: --- Name: Antolin Perdomo Age/Sex: 84/M : 1940 Unit#: [id number] Attend Dr: Les Alcantar MD Re07/24/24 Status : [facility] Location: [facility] Disch: --- SPEC : [id number] RECD: 07/24/24 STATUS: ARIKMisbah RIVASCallum NUM: [id number] KRYSTAL: 07/24/24-12[address] [facility] DR: Les Alcantar MD ENTERED: 07/24/24- 18 SP TYPE: Surgical OTHR DR: Jemal [...] ed intradepartmentally. Copies To: Les Alcantar MD [facility] [address] [place] [address] [address] [place] [address] Jemal Bustillos MD [address] [place] [address], [address] [place], [place] [id number] --- Signed (signature on file) Rocky Stacy MD 07/26/24 1426 --- END OF REPORT Complete Blood Count Auto Di ff Reviewed date:10/20/2024 09:05:17 AM Interpretation: Performing Lab:[facility], [address] [place] [address] Notes/Report: White Blood Count 10.6 4.8-10.8 X10*3/uL Red Blood Count 4.23 4.60-5.80 X10*6/uL Hemoglobin 13.2 14.0-18.0 g/dl Hematocrit 39.9 42.0-52.0 % Mean Corpuscular Volume 94.3 80.0-98.0 fL Mean Corpuscular Hemoglobin 31.2 27.0-33.0 pg Mean Corpuscular HGB Conc 33.1 31.0-36.0 g/dl Red Cell Distribution Width 13.8 11.0-16.0 % Platelet Count 346 160-400 X10*3/uL Mean Platelet Volume 9.9 9.4-12.4 fL Neutrophils Percent Auto 51.1 45-73 % Imm Gran Pct Auto 0.4 0.0-0.4 % Lymphocytes Percent Auto 33.6 20-40 % Monocytes Percent Auto 10.5 2-11 % Eosinophils Percent Auto 4.0 0-4 % Basophils Percent Auto 0.4 0-2 % NRBC Pct Auto 0.0 0.0-0.2 /100WBC Neutrophils Absolute Auto 5.4 2.0-8.3 x10*3/uL Imm Gran Abs Auto 0.04 0.00-0.03 X10*3/uL Lymphocytes Absolute Auto 3.6 1.2-4.9 X10*3/uL Monocytes Absolute Auto 1.1 0.1-1.2 X10*3/uL Eosinophils Absolute Auto 0.4 0.0-0.4 X10*3/uL Basophils Absolute Auto 0.0 0.0-0.2 X10*3/uL NRBC Abs Auto 0.000 0.0-0.012 X10*3/uL Comprehensive [place]. Panel Fa st Reviewed date:10/20/2024 09:05:17 AM Interpretation: Performing Lab:[facility], [address] [place] [phone] Notes/Report: Sodium 139 135-145 mmol/L Potassium 5.7 3.3-5.1 mmol/L Chloride 103 96-108 mmol/L Carbon Dioxide 25 22-29 mmol/L Anion Gap 17 12-20 Blood Urea Nitrogen 36 9-16 mg/dL Creatinine 1.05 0.5-1.4 mg/dL Estimated Glomerular Filt Rate > 60 Chronic Kidney Disease: Estimated GFR < 60 mL/min/1.73m2 Severe Kidney Disease: Estimated GFR < 15 mL/min/1.73m2 Glucose Fasting 111 60-99 mg/dL A fasting glucose from 100-125 mg/dl is considered impaired (pre-diabetes). Calcium 9.7 8.4-10.2 mg/dL Bilirubin Total 0.3 0.0-1.0 mg/dL Aspartate Amino Transferase 25 5-37 U/L Alanine Aminotransferase 26 0-40 U/L Total Protein 7.5 6.5-8.0 g/dL Albumin Level 4.7 3.5-5.0 g/dL Alkaline Phosphatase 82 39-117 U/L Lipid Panel Reviewed date:10/20/2024 09:05:17 AM Interpretation: Performing Lab:[facility], [address] [place] [phone] Notes/Report: Triglycerides 179 <150 mg/dL Desirable Triglyceride: less than 150 mg/dL Borderline High Triglyceride 150-199 mg/dL High Triglyceride: 200-499 mg/dL Very High Triglyceride: greater than or equal to 5OO mg/dL Cholesterol 138 <200 mg/dL Desirable Cholesterol: less than 200 mg/dL Borderline High Cholesterol: 200-239 mg/dL High Cholesterol: greater than 239 mg/dL LDL Cholesterol Calculated 64 <100 mg/dL Desirable LDL: less than 100 mg/dL Near Optimal/Above Optimal LDL: 110-129 mg/dL Borderline High LDL: 130-159 mg/dL High LDL: 160-189 mg/dL Very High LDL: greater than or equal to 190 mg/dL HDL Cholesterol 39 >40 mg/dL Desirable HDL: greater than 40 mg/dL Note: This HDL assay may give artificially low results in patients with liver disease. Microalbumin, Random Reviewed date:10/20/2024 09:05:17 AM Interpretation: Performing Lab:[address] [address] Notes/Report: Creatinine Urine 51.26 Microalbumin Urine 417.0 Microalbum/Creatinine Ratio Ur 813.4 <30 ug/mg cr Albumin/Creatinine Ratio Reference Ranges: Normal: < 30 ug/mg creatinine Microalbuminuria: 30 - 300 ug/mg creatinine Clinical Albuminuria: > 300 ug/mg creatinine Hemoglobin A1c Reviewed date:10/20/2024 09:05:17 AM Interpretation: Performing Lab:[address] [address] Notes/Report: Hemoglobin A1c % 7.4 <6.0 % Hemoglobin A1C Reference Range Adults: 4.8 - 6.0 % Non diabetic: < 6.0 % Goal: < 7.0 % Additional Action Suggested: > 8.0 % Note: Hemoglobin A1c results are invalid for patients with abnormal amounts of HbF. Blood transfusions may impact the HbA1c concentration in the patient sample. Estimated Average Glucose 166 eAG = Estimated average glucose which is %A1C expressed as average glucose, using the formula of the A3S-Lndgvlf Average Glucose study (ADAG), Diabetes Care, Vol.31,#8, Aug. 2007 US renal BI (Not yet review ed by provider) Interpretation: Performing Lab: Notes/Report: [address] [address] Ultrasound Report Signed Patient: Antolin Perdomo MR#: [id number] 680 : 1940 Acct:[id number] Age/Sex: 84 / M ADM Date: 01/22/25 Loc: . Attending Dr: Les Alcantar MD Ordering Physician: Les Alcantar MD Date of Service: 01/22/25 Procedure(s): US renal BI Accession Number(s): [id number] cc: Les Alcantar MD; Jemal Bustillos MD CLINICAL HISTORY: N20.0 - Calculus of kidney US RENAL Comparison: US/SR - US ABDOMEN LIMITED - 05/04/24 13:11 EST Findings: Right kidney length is 11.0 cm. Left kidney length is 10.8 cm. Renal cortical thickness and echotexture are within normal limits bilaterally. 1.8 cm dominant exophytic cyst in the upper pole of the right kidney. 6.9 x 3.3 x 5.1 cm dominant exophytic cyst in the upper to midpole of the left kidney. There are punctate echogenic foci in the right kidney. There are hyperechoic foci in the left kidney measuring up to 4 mm. IMPRESSION: 1. No hydronephrosis. 2. Bilateral nephrolithiasis, left greater than right. 3. Bilateral renal cysts. This document has been electronically signed by: Yesy Hillman DO on 01/22/2025 16:12:32 Dictated By: Yesy Hillman MD Signed By: <Electronically signed by Yesy Hillman MD in OV> 01/22/25 1613 DD/ 1612 TD/TT: 01/22/25 1612 Char Belt Operator: [place] [address] Ultrasound Report Signed Patient: Radha Perdomo MR#: [id number] 680 : 1940 Acct:[id number] Age/Sex: 84 / M ADM Date: 01/22/25 Loc: HO.US Attending Dr: Geovanni Rascon MD Ordering Physician: Les Alcantar MD Date of Service: 01/22/25 Procedure(s): US sowmya al BI Accession Number(s): [id number] cc: Les Alcantar MD; Jemal Bustillos MD CLINICAL HISTORY: N2 0.0 - Calculus of kidney US RENAL Comparison: US/SR - US ABDOMEN LIMITED - 05/04/24 13:11 EST Findings: Right kidney length is 11.0 cm. Left kidney length i s 10.8 cm. Renal cortical thickness and echotexture are within normal limits bilaterally. 1.8 cm dominant exophytic cyst in the upper pole of the right kidney. 6.9 x 3.3 x 5.1 cm dominant exophytic cyst in the upper to midpole of the left kidney. There are punctate echogenic foci in the right kidney. There are hyperechoi c foci in the left kidney measuring up to 4 mm. IMPRESSION: 1. No hydronephrosis. 2. Bilateral nephrolithiasis, left greater than right. 3. Bilateral renal cysts. This document has be en electronically signed by: Yesy Hillman DO on 01/22/2025 16:12:32 Dictated By: Yesy Hillman MD Signed By: <Electronically signed by Yesy Hillman MD in OV> 01/22/25 161 DD/ 11 TD/TT: 01/22/251611 Char Belt Operator: Reason For Referral Reason Evaluate and Treat Severe Left Dupuytren Left 4th and 5th finger Diagnosis 1 Dupuytrens contractu re (M72.0) Referral Organization Jemal Bustillos III, MD Referring Provider First Name Jemal Referring Provider Last Name Tressa Referring Provider Speciality Internal M edicine Referred Provider Kathie Guerrero Referred Provider Specialty Hand Surgery General Notes Rian Snow 02:37:04 PM >Referral faxed. Pt is aware.Flo Amber 10/25/2024 09:44:47 AM > Patient made appointment for 11/06/2024 @ 9:30am with Chente STEWART Referral Priority Routine Referral Appointment Date 11/06/2024 Medications Medication SIG (Take, Route, Frequency, Duration) [...] has Insurance PA approval from 07/05/2024- Active Atorvastatin Calcium 20 MG 1 tablet Orally Once a day Active metFORMIN HCl 1000 MG TAKE 1 TABLET BY MOUTH TWICE A DAY FOR 30 DAYS Active Pravastatin Sodium 20 MG TAKE 1 TABLET BY MOUTH EVERYDAY AT BEDTIME Oral Active Meclizine HCl 25 MG 1 tablet as needed Orally every 12 hrs 06/27/2024 Active Aspirin Adult Low Dose 81 MG 1 tablet Orally Once a day Active Omeprazole 20 MG 1 capsule 30 minutes before morning meal Orally twice a day 07/23/2023 Active Loratadine 10 MG 1 tablet Orally Once a day Active Tamsulosin HCl 0.4 MG Oral Active Lisinopril 30 MG 1 tablet Orally Once a day 04/14/2023 Active Pioglitazone HCl 15 MG 1 tablet Orally Once a day 04/06/2024 Active Metoprolol Succinate ER 25 MG 1 tablet Orally Once a day 07/08/2023 Active amLODIPine Besylate 10 MG 1 tablet Orally Once a day Active Fluticasone Furoate 27.5 MCG/SPRAY 2 sprays (1 spray in each nostril) Nasally Once a day 06/07/2024 Active Immunizations Vaccine Route Administration Date Status [...] Problem Status W/U Status Risk Notes Problem 63949578 Hyperlipidemia (E78.5) Active confirmed His lipids are stable. A repeat fasting lipid profile will be done periodically. No change in his regimen was necessary today. Problem 315724782 Underweight (R63.6) Active confirmed His weight has recently been stable in and underweight range. Because of his weight loss will be investigated. It is likely COPD. Problem 03886725 Type 2 diabetes mellitus without complications (E11.9) Active confirmed His hemoglobin A1c has improved from 7.8 down to 7.4. Current therapy was continued with only one metformin tablet daily. Problem Hyperkalemia (55092323) Hyperkalemia (E87.5) Active confirmed His potassium level was 5.7. He was sent to repeat it. On repeat it was 5.2. Problem Chronic obstructive pulmonary disease (81181864) Chronic obstructive pulmonary disease, unspecified (J44.9) Active confirmed He is trying to stop smoking. He continues to consume 10 cigarettes daily. He is comfortable breathing room air. He has been compliant with his medications. Problem 62472342 Calculus of ureter (N20.1) Active confirmed A stent has b een inserted and then removed. The stone was removed and was calcium oxalate. It is free of pain at this time, but weakened and has lost 5 pounds with his recent surgery and hospitalization. Problem Calculus of kidney with calculus of ureter (351115672) Calculus of kidney with calculus of ureter (N20.2) Active confirmed He has had no renal colic since his last visit. He denies hematuria. Problem 192650817 GERD without esophagitis (K21.9) Active confirmed His reflux symptoms have been well controlled with medication. He has been sleeping through the night lately. Problem 37424065 Essential hypertension (I10) Active confirmed His blood pressure is currently stable at 142/62 and no change in his regimen was necessary. Problem 32923629 Tobacco dependence (F17.200) Active confirmed He continues to smoke about 20 cigarettes per day. I discussed smoking cessation with him at great length today. Problem 25251836 COPD (chronic obstructive pulmonary disease) (J44.9) Active confirmed He continue s to smoke about 10 cigarettes daily. He is comfortable breathing room air at rest. At this point he does not need home oxygen. We have discussed smoking cessation strategies at length today. He was offered medications and we'll consider it. Problem 84522596 Hearing loss, bilateral (H91.93) Active confirmed There has been no change in his hearing. He did quite well over the telephone today. Problem 143998223 Pulmonary nodule (R91.1) Active confirmed He has a 7 mm right lower lobe nodule which will be followed carefully. Problem Contracture of palmar fascia (563354081) Dupuytrens contracture (M72.0) Active confirmed He has mild to moderate bilateral Dupuytren's contracture in the palm of each hand. It has become painful in the left hand recently. Problem 399362639 Peripheral arterial disease (I73.9) Active confirmed He continues to have claudication primarily in his left leg. He has seen his vascular surgeon recently. She has operated on the left leg. It is warm today. He complains of pain in his left leg with walking length of the [employer]. Problem 681309075 Cataract (H26.9) Active confirmed Problem 760187627 Lumbar spine pain (M54.5) Active confirmed The back pain i s minimal at this time. I recommended no heavy lifting. His current regimen. We'll continue. Problem 948020562 Complex renal cyst (N28.1) Active confirmed The cyst will b e imaged periodically. Problem 684891855 Abnormal liver function tests (R79.89) Active confirmed The cause of hi s abnormal transaminases enzymes will be sought. Problem 210894906 Acute asthmatic bronchitis (J45.909) Active confirmed He clearly has an antecedent viral syndrome and likely has a bacterial bronchitis. He was given an antibiotic. Follow-up was arranged. Problem 111498617 Benign prostatic hyperplasia, unspecified whether lower urinary tract symptoms present (N40.0) Active confirmed He rises from sleep 3 or 4 times a night to urinate. We have discussed lifestyle modification as a way to reduce nocturia. A prostate procedure has been scheduled by his urologist in the near future. Problem 334816023 S/P cholecystectomy (Z90.49) Active confirmed He underwent a cholecystectomy for acute cholelithiasis 14 days ago. He is now recovering at home. He remains weak but his appetite is fair. Problem 318747811392545 Left carotid artery stenosis (I65.22) Active confirmed He has had an endarterectomy and now has a good pulse in the neck. Problem Atherosclerotic heart disease of [place] coronary artery without angina pectoris (401098244972818 ) Arteriosclerotic coronary artery disease (I25.10) Active confirmed He recently had an angioplasty of the right coronary artery and 2 stents put into the left system May 25, 2023 at [facility]. He says he is unable to tolerate the metoprolol as well as the Brilinta. He has had no angina since his last visit. Vital Signs Heart Rate 72 /min 12/26/2024 Temperature 97.2 degrees Fahrenheit 12/26/2024 Blood pressure diastolic 68 mm Hg 12/26/2024 Height 65 in 12/26/2024 Blood pressure systolic 140 mm Hg 12/26/2024 Weight 125 lbs 12/26/2024 BMI 20.8 kg/m2 12/26/2024 Encounters Encounter Location Date Provider Diagnosis Jemal Bustillos III, MD [address] [place] [address] [place] [address] 04/06/2024 Jemal Bustillos Tobacco dependence F17.200 ; Type 2 diabetes mellitus without complications E11.9 ; Hyperlipidemia E78.5 ; COPD (chronic obstructive pulmonary disease) J44.9 ; Essential hypertension I10 and Nocturia R35.1 Jemal Bustillos III, MD [address] [place] [address] [place] [address] 06/07/2024 Jemal Bustillos Tobacco dependence F17.200 ; [...] artery stenosis I65.22 Jemal Bustillos III, MD [address] [place] [address] [place] [address] 06/27/2024 Jemal Bustillos Tobacco dependence F17.200 ; [...] function tests R79.89 Jemal Bustillos III, MD [address] [place] [address] [place] [address] 07/28/2024 Jemal Bustillos Tobacco dependence F17.200 ; [...] renal cyst N28.1 Jemal Bustillos III, MD [address] [place] [address] [place] [address] 10/11/2024 Jemal Bustillos Tobacco dependence F17.200 ; [...] arterial disease I73.9 Jemal Bustillos III, MD [address] [place] [address] [place] [id number] 10/25/2024 Jemal Bustillos Tobacco dependence F17.200 ; COPD (chronic obstructive pulmonary disease) J44.9 ; Hyperkalemia E87.5 ; Hearing loss, bilateral H91.93 ; Type 2 diabetes mellitus without complications E11.9 ; Pulmonary nodule R91.1 ; Left carotid artery stenosis I65.22 ; Benign prostatic hyperplasia, unspecified whether lower urinary tract symptoms present N40.0 and Dupuytrens contracture M72.0 Jemal Bustillos III, MD [address] [place] [address] [place] [address] 12/26/2024 Jemal Bustillos Tobacco dependence F17.200 ; COPD (chronic obstructive pulmonary disease) J44.9 ; Type 2 diabetes mellitus without complications E11.9 ; Hearing loss, bilateral H91.93 ; GERD without esophagitis K21.9 ; Lumbar spine pain M54.5 and Dupuytrens contracture M72.0 Jemal Bustillos III, MD [address] [place] [address] 02/08/2024 Jemal Bustillos III, MD [address] [place] [address] [place] [address] 03/14/2024 Jemal Bustillos III, MD [address] [place] [address] 03/15/2024 Jemal Bustillos III, MD [address] [place] [address] 04/10/2024 Jemal Bustillos III, MD [address] [place] [address] [place] [address] 04/12/2024 Jemal Bustillos III, MD [address] [place] [address] [place] [address] 04/19/2024 Jemal Bustillos III, MD [address] [place] [address] [place] [address] 04/21/2024 Jemal Bustillos III, MD [address] [place] [address] [place] [address] 04/21/2024 Jemal Bustillos III, MD [address] [place] [address] [place] [address] 04/24/2024 Jemal Bustillos III, MD [address] [place] [address] [place] [address] 05/02/2024 Jemal Bustillos III, MD [address] [place] [address] [place] [address] 05/04/2024 Jemal Bustillos III, MD [address] [place] [address] 2024 Jemal Bustillos III, MD [address] [place] [address] [place] [address] 06/07/2024 Jemal Bustillos III, MD [address] [place] [address] [place] [address] 06/15/2024 Jemal Bustillos III MD [address] [place] [address] [address] [place] [address] 07/05/2024 Jemal Bustillos Tobacco dependence F17.200 Jemal Bustillos III, MD [address] [place] [address] [address] [place] [address] 07/12/2024 Jemal Bustillos III, MD [address] [place] [address] [address] [place] [address] 08/14/2024 Jemal Bustillos Assessments Encounter Date Diagnosis (ICD Code) Assessment Notes T reatment Notes Treatment Clinical Notes 04/06/2024 Type 2 diabetes mellitus without complications [...] consider it. We did make a referral. 10/25/2024 Tobacco dependence (ICD-10 - F17.200) He [...] offered medications and we'll consider it. 12/26/2024 Tobacco dependence (ICD-10 - F17.200) He [...] was offered medications and we'll consider it. 07/05/2024 Tobacco dependence (ICD-10 - F17.200) He resumed smoking 10 cigarettes daily. I have counseled him at length today about smoking cessation program. 04/06/2024 Hyperlipidemia (ICD- 10 - E78.5) His [...] become painful in the left hand recently. 10/25/2024 Hyperkalemia (ICD-10 - E87.5) His potassium level was 5.7. He was sent to repeat it. On repeat it was 5.2. 12/26/2024 Type 2 diabetes mellitus without complications (ICD-10 - E11.9) His hemoglobin A1c has improved from 7.8 down to 7.4. Current therapy was continued with only one metformin tablet daily. 04/06/2024 COPD (chronic obstructive pulmonary disease) (ICD-10 [...] every 3 hours. A followup was arranged. 10/25/2024 Hearing loss, bilateral (ICD-10 - H91.93) There has been no change in his hearing. He did quite well over the telephone today. 12/26/2024 Hearing loss, bilateral (ICD-10 - H91.93) There has been no change in his hearing. He did quite well over the telephone today. 04/06/2024 Essential hypertensi on (ICD-10 - I10) [...] compliant with his treatment and diet. 10/25/2024 Type 2 diabetes mellitus without complications (ICD-10 - E11.9) He has been continued on his current regimen without change. His glucose levels have been acceptable. He has been compliant with his treatment and diet. 12/26/2024 GERD without esophagitis (ICD-10 - K21.9) His reflux symptoms have been well controlled with medication. He has been sleeping through the night lately. 04/06/2024 Nocturia (ICD-10 - R35.1) He suffers [...] quite well over the telephone today. 10/25/2024 Pulmonary nodule (ICD-10 - R91.1) He has a 7 mm right lower lobe nodule which will be followed carefully. 12/26/2024 Lumbar spine pain (ICD-10 - M54.5) The back pain is minimal at this time. I recommended no heavy lifting. His current regimen. We'll continue. 06/07/2024 Complex renal cyst (ICD-10 - N28.1) [...] offered medications and we'll consider it. 10/25/2024 Left carotid artery stenosis (ICD-10 - I65.22) He has had an endarterectomy and now has a good pulse in the neck. 12/26/2024 Dupuytrens contractu re (ICD-10 - M72.0) He has mild to moderate bilateral Dupuytren's contracture in the palm of each hand. It has become painful in the left hand recently. 06/07/2024 Benign prostatic hyperplasia, unspecified whether lower [...] the left system May 25, 2023 at [facility]. He says he is unable to tolerate the metoprolol as well as the Brilinta. He has had no angina since his last visit. 10/11/2024 Hyperlipidemia (ICD- 10 - E78.5) His lipids are stable. A repeat fasting lipid profile will be done periodically. No change in his regimen was necessary today. 10/25/2024 Benign prostatic hyperplasia, unspecified whether lower urinary tract symptoms present (ICD-10 - N40.0) He rises from sleep 3 or 4 times a night to urinate. We have discussed lifestyle modification as a way to reduce nocturia. A prostate procedure has been scheduled by his urologist in the near future. 06/07/2024 Calculus of ureter (ICD-10 - N20.1) [...] left leg with walking length of the [employer]. 07/28/2024 Chronic obstructive pulmonary disease, unspecified (ICD-10 - J44.9) He is trying to stop smoking. He continues to consume 10 cigarettes daily. He is comfortable breathing room air. He has been compliant with his medications. 10/11/2024 GERD without esophagitis (ICD-10 - K21.9) His reflux symptoms have been well controlled with medication. He has been sleeping through the night lately. 10/25/2024 Dupuytrens contractu re (ICD-10 - M72.0) He has mild to moderate bilateral Dupuytren's contracture in the palm of each hand. It has become painful in the left hand recently. 06/07/2024 Hearing loss, bilateral (ICD-10 - H91.93) There has been no change in his hearing. He did quite well over the telephone today. 06/27/2024 Arteriosclerotic coronary artery disease (ICD-10 - I25.10) He recently had an angioplasty of the right coronary artery and 2 stents put into the left system May 25, 2023 at [facility]. He says he is unable to [...] the left system May 25, 2023 at [facility]. He says he is unable to [...] left leg with walking length of the [employer]. Plan Of Treatment Pending Test Test Name Order Date PROFILE, FASTING (COMPREHENSIVE METABOLI C) 08/04/2023 PROFILE, FASTING (COMPREHENSIVE METABOLI C) 01/29/2022 PROFILE, FASTING (COMPREHENSIVE METABOLI C) 04/06/2024 PROFILE, FASTING (COMPREHENSIVE METABOLI C) 07/05/2023 PROFILE, FASTING (COMPREHENSIVE METABOLI C) 07/28/2024 PROFILE, FASTING (COMPREHENSIVE METABOLI C) 02/23/2023 PROFILE, RANDOM (COMPREHENSIVE METABOLIC ) 06/22/2023 PROFILE, RANDOM (COMPREHENSIVE METABOLIC ) 12/26/2024 HEMOGLOBIN A1C (GLYCOHEMOGLOBIN) 023 LIPID PANEL 02/23/2023 PSA, TOTAL 04/06/2024 CBC w DIFF 02/23/2023 CBC w DIFF 12/26/2024 CBC w DIFF 04/06/2024 SED RATE (ESR) 06/22/2023 URINALYSIS (UA) 10/13/2023 XR CHEST 2 VIEW PA & LAT 09/21/2023 CBC WITH AUTO DIFF 08/04/2023 CBC WITH AUTO DIFF 06/22/2023 CBC WITH AUTO DIFF 07/05/2023 CBC WITH AUTO DIFF 07/28/2024 Lipid Panel 08/04/2023 Lipid Panel 07/28/2024 Lipid Panel 04/06/2024 Microalbumin, Random 07/28/2024 Microalbumin, Random 04/06/2024 Microalbumin, Random 02/23/2023 Microalbumin, Random 08/04/2023 Microalbumin, Random 12/26/2024 Microalbumin, Random 07/05/2023 US renal BI 01/22/2025 Hemoglobin A1c 07/28/2024 Hemoglobin A1c 04/06/2024 Hemoglobin A1c 08/04/2023 Hemoglobin A1c 12/26/2024 Next Appt Details Provider Name:Jemal Bustillos, 03/29/2025 09:00:00 AM, [address] [place] [address] [address], [place], [phone], Provider Name:Jemal Bustillos, 07/30/2025 09:30:00 AM, [address] [place] [address] [address], [facility] [place], [phone], Insurance Providers Payer Name Payer Address Payer Phone Subscriber Number Group Number Insured Name Patient Relationship to Insured Coverage Start Date Coverage End Date [facility] [address] [facility] [place] [phone] [id number] Antolin Perdomo Self - patient is the insured MEDICA[place] [address] [place], [place] [id number] Antolin Perdomo Self - patient is the insured MEDICARE [place] [address] [facility] [place] [address] [id number] Antolin Perdomo Self - patient is the [...] [place]iac [place] with 2 [place] plac[place] [facility] [place] Cystoscopy with left uretera l stent subsequently removed, ureterolithiasis 09/2022 left carotid endarterectomy [facility], Dr. Alonso 09/2017 bilateral cataracts Hospitalization History Reason Date(Month/Year) Hospitalized at [facility] TIA 08/2017
--- OUTSIDE RECORDS SUMMARY | 2025-02-02 10:25 | XMS_ITS | Patient Health Record ---
Author Organization [facility] Address [address] [place] [id number] Care Team Providers Care Block Feeder Name Role Phone Ileana Bustillos MD Primary Care Provider UnavailNicolás Cheney Jr Unavailable Allergies No Known Allergies Reason For Referral [...] Problem Status W/U Status Risk Notes Problem [id number] Acute gastritis without hemorrhage, unspecified gastritis type (K29.00) Active confirmed Plan Of Treatment No Information Insurance Providers Payer Name Payer Address Payer Phone Subscriber Number Group Number Insured Name Patient Relationship to Insured Coverage Start Date Coverage End Date [facility] [address] [facility] [place] [phone] [id number] VANESSABETTY Gallegos Self - patient is the insured MEDICAID OF [employer] [address] [place] [phone] [id number] VANESSABETTY Gallegos Self - patient is the insured Medical (General) History Medical History History ICD Code Diabetes mellitus Coronary artery disease with history NSTEMI and PCI with stent placement x205/22 Hypertension Hyperlipidemia Peripheral vascular disease TIA Nephrolithiasis Back pain Surgical History Surgery Date(Month/Year) PCI/ALVAREZ x2 05/22/2023 Kidney stone removal 09/28/21 Iliac artery stent placement
--- OUTSIDE RECORDS SUMMARY | 2025-02-02 10:25 | XMS_ITS | Clinical Summary ---
Author Organization [facility] Address [address] [place] [id number] Phone Care Team Providers Care Angiographer Name Role Phone Unavailable Primary Care Provider [...] Insurance [employer] MEDIC[employer] HMO REPLACEMENT [place] [address] [place] [address] MEDICARE HMO REPLACEMENT MEDICARE HMO REPLACEMENT [address] [place] [address] [address] [place] [place] [address] MEDICARE HMO REPLACEMENT [employer] H[employer] REPLACEMENT Additional Source Comments The information contained in this document represents components of the legal health record. It is not the complete legal health record.[facility]
== END 2025-02-02 10:20 | disposition home or self-care (01) ==
LOC: HO.HUSH 09:40
PROVIDERS: PCP Internal Medicine Medical Oncology; Visit Provider Urology
DX: Z13.9 Encounter for screening, unspecified (principal); N32.81 Overactive bladder
CPT/HCPCS: 99214

== ENCOUNTER → 2025-02-02 09:39 | Outpatient (BNVA) | payer MEDICARE, MEDICAID, SELFPAY | PROVIDERS: PCP Internal Medicine Medical Oncology; Visit Provider Urology | DX: N40.1 Benign prostatic hyperplasia with lower urinary tract symptoms (principal); N13.8 Other obstructive and reflux uropathy; N32.81 Overactive bladder; N28.1 Cyst of kidney, acquired; N20.0 Calculus of kidney; Z13.9 Encounter for screening, unspecified | CPT/HCPCS: 51798; 81003; 99212 ==

== ENCOUNTER 2025-02-13 08:42 | Outpatient (AMB) | payer MEDICARE, MEDICAID, SELFPAY ==
--- OUTSIDE RECORDS SUMMARY | 2023-10-04 09:55 | XMS_ITS ---
Author Organization [facility] Address [address] [place] [phone] Care Team Providers Care [employer] Name Role Phone Tressa BRANDT, Ileana Primary Care Provider Eladio Stokes Jr, Nicolás Martinez [phone] REASON FOR VISIT N/V EARLY SATIETY/hemoptysis Encounters Encounter Location Date Provider Diagnosis [facility] [address] [place] [phone] 10/04/2023 Nicolás Puckett Jr Plan Of Treatment No Information Progress Notes * BETTY MENDEZ LDOB:[birth year] (84 yo M)Acc No.[id number]:10/04/2023 Progress Notes Patient: BETTY AZEVEDO Provider: Narda Puckett MD :1940 A ge:83 Y S ex:Male Date:10/04/2023 Address:[address] [place], [place] [id number] Pcp:Ileana Bustillos MD Subjective: * Chief Complaints: [...] MD Date: 0 10/04/2023 Generated for Miriani jax/Vickg/eTransmitting on: 0 02/13/2025 10:30 AM EDT
--- OUTSIDE RECORDS SUMMARY | 2023-12-27 05:20 | XMS_ITS ---
Author Organization [facility] Address [address] [place] [id number] Care Team Providers Care Payroll Lead Name Role Phone Tressa BRANDT, Ileana Primary Care Provider Eladio Stokes Jr, Nicolás Martinez Encounters Encounter Location Date Provider Diagnosis [facility] [address] [place] [phone] 12/27/2023 Nicolás Puckett Jr Plan Of Treatment No Information Progress Notes * BETTY MENDEZ LDOB:[birth year] (84 yo M)Acc No.[id number]:12/27/2023 Progress Notes Patient: BETTY AZEVEDO Provider: Narda Puckett MD :1940 A ge:83 Y S ex:Male Date:12/27/2023 Address:[address] [place], [place] [id number] Pcp:Ileana Bustillos MD Subjective: * Chief Complaints: * * Medical History: Objective: * Vitals: Assessment: Plan: * Treatment: * * The named appointment provid er may or may not be the originator of this progress note, and it is not deemed complete until electronically signed by the appointment provider. Sign off status: Pending * Provider: Narda Puckett MD Date: 12/27/2023 Generated for Printi ng/Faakirag/eTransmitting on: 0 02/13/2025 10:30 AM EDT
--- OUTSIDE RECORDS SUMMARY | 2024-08-14 06:50 | XMS_ITS ---
Author Organization Jemal Bustillos III, MD Address [address] [place] [address] [place] [address] Care Team Providers Care Cnc Programmer Name Role Phone Jemal Bustillos Primary Care Provider REASON FOR VISIT HCC Risk Codes Social History Sex Assigned At : Social History Observation Description Sex Assigned At Male Encounters Encounter Location Date Provider Diagnosis Jemal Bustillos III, MD [address] [place] [address] [place] [address] 08/14/2024 Jemal Bustillos Plan Of Treatment Next Appt Details Provider Name:Jemal Bustillos, 03/29/2025 09:00:00 AM, [address] [place] [address] [place], [address], Provider Name:Jemal Bustillos, 07/30/2025 09:30:00 AM, [address] [place] [place] [address] [place], [address], Progress Notes * Beck PERDOMOOB:1940 (84 yo M)Acc No.[id number]:08/14/2024 Patient: Antolin AZEVEDO :1940 A ge:84 Y S ex:Male Address:[address] [place] [address], [place], [address] * true * Date: Generated for Abner camara/Vee/Vic on: 0 02/13/2025 10:30 AM EDT
--- OUTSIDE RECORDS SUMMARY | 2024-10-11 10:30 | XMS_ITS ---
Author Organization Jemal Bustillos III, MD Address [address] [place] [address] [place] [address] Care Team Providers Care Team Leader Surgery Name Role Phone Jemal Bustillos Primary Care Provider [phone] Allergies Allergen (clinical drug ingredient) Drug/Non Drug [...] Date Provider Diagnosis Jemal Bustillos III, MD [address] [place] [address] [address], [place] [phone] 10/11/2024 Jemal Bustillos Tobacco dependence F17.200 ; [...] the left system May 25, 2023 at [facility]. He says he is unable to [...] left leg with walking length of the [employer]. Plan Of Treatment Medication Medication Name Sig [...] OV Provider Name:Jemal Bustillos, 03/29/2025 09:00:00 AM, [address] [place] [address] [address], [place], [address], Provider Name:Jemal Bustillos, 07/30/2025 09:30:00 AM, [address] [place] [address] [address], [place], [phone], Progress Notes * Beck MENDEZOB:1940 (84 yo M)Acc No.[id number]:10/11/2024 Progress Notes Patient: Antolin AZEVEDO Provider: Sapna Bustillos MD :1940 A ge:84 Y S ex:Male Date:10/11/2024 Address:[address] [place] [id number] Subjective: * Chief Complaints: * L eft [...] History: b ilateral cataracts left carotid endarterectomy [facility], Dr. Alonso 09/2017Cystoscopy with left ureteral stent subsequently removed, ureterolithiasis ardiac cath with 2 stent placements at [facility] holecystectomy TURP 07/2024 * Hospitalization/Major Diagno stic Procedure: T IA 08/2017Hospitalized at [facility] for prostate surgery * Family History: F [...] sons and 2 grandchildren. 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 He smoked cigarettes but does [...] the left system May 25, 2023 at [facility]. He says he is unable to [...] left leg with walking length of the [employer] store. Plan: * Treatment: 2. D upuytrens [...] MD Date: 0 10/11/2024 Generated for Printi ng/Vickg/eTransmitting on: 0 02/13/2025 10:30 AM EDT History and Physical Notes * [...]
--- OUTSIDE RECORDS SUMMARY | 2024-10-25 05:45 | XMS_ITS ---
Author Organization Jemal Bustillos III, MD Address [address] [place] [address] [place] [address] Care Team Providers Care Seamstress Fitter Name Role Phone Jemal Bustillos Primary Care Provider Allergies Allergen (clinical drug ingredient) Drug/Non Drug Allergy documented on EMR Reaction Allergy Type Onset Date Status No Known Drug Allergy Unknown Drug Allergy Active Results Component Value Reference Range Notes Electrolytes Reviewed date:12/30/2024 08:44:06 PM Interpretation: Performing Lab:[facility], [address] [place] [address] Notes/Report: Sodium 137 135-145 mmol/L Potassium 5.2 [...] user Heavy cigarett e smoker (20-39 cigs/day) Problems Problem Type SNOMED Code ICD Code Onset Dates Problem Status W/U Status Risk Notes Problem Hyperkalemia (30114875) Hyperkalemia (E87.5) Active confirmed His potassium level was 5.7. He was sent to repeat it. On repeat it was 5.2. Vital Signs Temperature 97.9 degrees Fahrenheit 10/26/19 25 Blood pressure systolic 166 mm Hg 10/26/19 25 Blood pressure diastolic 57 mm Hg 025 Heart Rate 72 /min 10/25/2024 Height 65 in 10/25/2024 Weight 128 lbs 10/25/2024 BMI 21.3 kg/m2 10/25/2024 Encounters Encounter Location Date Provider Diagnosis Jemal Bustillos III, MD [address] [place] [address] [address] [place], [place] [phone] 10/25/2024 Jemal Bustillos Tobacco dependence F17.200 ; [...] 1 Week, Reason: T [facility] Provider Name:Jemal Bustillos, 03/29/2025 09:00:00 AM, [address] [place] [address] [address], [place], [address], Provider Name:Jemal Bustillos, 07/30/2025 09:30:00 AM, [address] [place] [address] [address], [place], [address], Progress Notes * Hortensia PERDOMOileDOB:1940 (84 yo M)Acc No.[id number]:10/25/2024 Progress Notes Patient: Antolin AZEVEDO Provider: Sapna Bustillos MD :1940 A ge:84 Y S ex:Male Date:10/25/2024 Address:[address] [place] [id number] Subjective: * Chief Complaints: * F ollow [...] History: b ilateral cataracts left carotid endarterectomy [facility], Dr. Alonso 09/2017Cystoscopy with left ureteral stent subsequently removed, ureterolithiasis ardiac cath with 2 stent placements [place] [facility] [place] TURP 07/2024 * Hospitalization/Major Diagno stic Procedure: T [place] 08/2017Hospitalized at [facility] for prostate surgery * Family History: F ather: 72 yrs, Diabetes, Heart failure, cancer, diagnosed with DM, Cancer. M other: alive 68 yrs, diagnosed with Cancer, DM. C alyx: alive. S on(s): alive. 2 brother(s) , [...] user H eavy cigarette smoker (20-39 cigs/day) H e was to Anamaria (Alicia) for 49 years and is now . They had three sons and 2 grandchildren. 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 He smoked cigarettes but does not drink [...] L (Ref Range: >40 mg/dL) * Lab:[facility] [place]. P[facility] l Fast * Collection Date 10/20/2024 [...] Examination: G eneral Examination: GENERAL APPEARANCE: p marilyn, well nourished, well developed, in no acute [...] MD Date: 0 10/25/2024 Generated for Abner camara/Vee/Daniellaitting on: 0 02/13/2025 10:29 AM EDT History and Physical Notes * [...]
--- OUTSIDE RECORDS SUMMARY | 2024-10-31 14:00 | XMS_ITS ---
Author Organization Jemal Bustillos III, MD Address [address] [place] [address] [place] [address] Care Team Providers Care Cribber Name Role Phone Jemal Bustillos Primary Care Provider REASON FOR VISIT Telehealth Social History Sex Assigned At : Social History Observation Description Sex Assigned At Male Encounters Encounter Location Date Provider Diagnosis Jemal Bustillos III, MD [address] [place] [address] [place] [address] 10/31/2024 Jemal Bustillos Plan Of Treatment Next Appt Details Provider Name:Jemal Bustillos, 03/29/2025 09:00:00 AM, [address] [place] [address] [place], [address], Provider Name:Jemal Bustillos, 07/30/2025 09:30:00 AM, [address] [place] [address] [place], [address], Progress Notes * Beck PERDOMOOB:1940 (84 yo M)Acc No.[id number]:10/31/2024 Patient: Antolin AZEVEDO Provider: Sapna Bustillos MD :1940 A ge:84 Y S ex:Male Date:10/31/2024 Address:[address] [place] [address], [id number] Subjective: * Chief Complaints: * 1 . [...] MD Date: 0 10/31/2024 Generated for Abner camara/eVe/Daniellaitting on: 0 02/13/2025 10:31 AM EDT
--- OUTSIDE RECORDS SUMMARY | 2024-12-26 05:30 | XMS_ITS ---
Author Organization Jemal Bustillos III, MD Address [address] [place] [address] [place] [address] Care Team Providers Care Beauty Operator Apprentice Name Role Phone Jemal Bustillos Primary Care [...] Date Provider Diagnosis Jemal Bustillos III, MD [address] [place] [address] [place] [address] 12/26/2024 Jemal Bustillos Tobacco dependence F17.200 ; [...] OV Provider Name:Jemal Bustillos, 03/29/2025 09:00:00 AM, [address] [place] [address] [address], [place], [address], Provider Name:Jemal Bustillos, 07/30/2025 09:30:00 AM, [address] [place] [address] [address], [place], [address], Progress Notes * Beck PERDOMOOB:1940 (84 yo M)Acc No.[id number]:12/26/2024 Progress Notes Patient: Antolin AZEVEDO Provider: Sapna Bustillos MD :1940 A ge:84 Y S ex:Male Date:12/26/2024 Address:[address] [place] [id number] Subjective: * Chief Complaints: * D iabetesHearing [...] History: b ilateral cataracts left carotid endarterectomy [facility], Dr. Alonso 09/2017Cystoscopy with left ureteral stent subsequently removed, ureterolithiasis ardiac cath with 2 stent placements at [facility] holecystectomy TURP 07/2024 * Hospitalization/Major Diagno stic Procedure: T IA 08/2017Hospitalized at [facility] for prostate surgery * Family History: [...] sons and 2 grandchildren. 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 He smoked cigarettes but does [...] 12/26/2024 Generated for Abner camara/Vee/Daniellaitting on: 0 02/13/2025 10:31 AM EDT History and Physical Notes * [...] RECTAL EXAM: not examined PSYCH: alert, oriented: mail service coordinator perative with exam: cognitive function intact: good eye contact: speech clear: thought process logical, goal directed ORAL CAVITY: normal, unremarkable
--- NOTE | 2025-02-13 09:05 | A.OFFVIS_ITS ---
Vital Signs 02/13/25 09:06 Height 5 ft 5 in Weight 128 lb 11.999 oz BMI 21.4 BP 156/66 H Blood Pressure Location Lt brachial Pulse 70 Pulse Source Monitor Intake Visit Reasons: 6 mth f/up NS Accompanied by: Self / Same As Patient Allergies No Known Allergies (No Known Allergies*) Allergy (Verified 02/13/25 09:09) Medication List - Last Reconciled 02/13/25 by Yeimi Ruelas NP-C amlodipine 10 mg PO DAILY aspirin 81 mg PO DAILY glyburide 10 mg PO DAILY@0900 lisinopril 10 mg PO DAILY metformin 1,000 mg PO DAILY pravastatin 20 mg PO BEDTIME solifenacin 5 mg PO DAILY 30 days HPI HPI 6 mth f/up NS: Details: Antolin is an 84-year-old male past medical history of hypertension, hyperlipidemia, diabetes, peripheral vascular disease, COPD, smoking, NSTEMI 04/2023 and underwent cardiac catheterization showing severe 2 vessel CAD and had stents placed to the proximal left circumflex and proximal RCA. Today he reports he has been doing well since his last visit in August. He denies any chest discomfort at rest or with activity. He is denying shortness of breath, PND, orthopnea or edema. No lightheadedness, presyncope, syncope, fa lls. His activity is limited by knee issues. He is able to tolerate normal ADLs but does no routine exercise. He continues to smoke 1-1.5 packs of cigarettes per day. His blood pressure is elevated today and he says it always is. He is declining further medications to treat this. He reports compliance with his current meds. He has an upcoming visit with his PCP. [facility] Medical History CAD (coronary artery disease) Nephrolithiasis NSTEMI (non-ST elevated myocardial infarction) Nausea Acute cholecystitis Hyperlipidemia Peripheral arterial disease TIA (transient ischemic attack) COPD (chronic obstructive pulmonary disease) Hearing loss Elevated cholesterol HTN (hypertension) Staghorn calculus Enlarged prostate Diabetes mellitus, type II Renal cysts, acquired, bilateral History of kidney stones Rotator cuff impingement syndrome Surgical History Hx of cardiac catheterization Hx of cystoscopy History of left-sided carotid endarterectomy Hx of cataract surgery Hx of lithotripsy History of surgery Social History Household Members: None Household Members Other:: 0 Housing: House Housing Other:: apt. in duplex Are you a primary pet care assistant to a significant other at home: No Do you presently have visiting nurse or other home services: No Patient Tobacco Use Status: Current everyday Tobacco user Tobacco use type: Cigarette Cigarette Packs Per Day: 1.5 Cigarettes Per Day: 30.0 Years Smoked: 60 e-Cigarette/Vaping Use: Never Used Advance Directives Date on File: 09/29/22 service: Yes Current occupational status: employed Review of Systems Const All systems reviewed & are unremarkable except as noted in HPI and below Denies daytime sleepiness, Denies difficulty sleeping, Denies snoring, Denies stops breathing during sleep and Denies weakness Card Denies chest pain, Denies rapid heart rate, Denies irregular heart rhythm, Denies claudication, Denies leg edema, Denies lightheadedness, Denies palpitations, Denies dyspnea, Denies dyspnea on exertion, Denies orthopnea, Denies paroxysmal nocturnal dyspnea and Denies slow heart rate Resp Denies cough, Denies dyspnea, Denies dyspnea on exertion and Denies snoring GI Reports no additional complaints, Denies hematochezia, Denies change in stool character and Denies dyspepsia Musc Denies abnormal gait, Denies muscle weakness and Denies numbness Neuro Denies abnormal gait, Denies numbness and Denies weakness Endo Denies palpitations Physical Exam Vital Signs: Last Vital Signs Pulse 70 02/13/25 09:06 BP 156/66 H 02/13/25 09:06 BMI result Body Mass Index 21.4 Const General: cooperative, healthy appearing, comfortable and no acute distress Orientation/consciousness: patient oriented x3 Neck Neck: Yes normal visual inspection Resp Effort & Inspection: normal respiratory effort Auscultation: clear to auscultation bilaterally, no crackles, no rales, no rhonchi and no wheezes Cardio Jugular venous distension: no JVD Rate: regular rate Rhythm: regular rhythm Heart sounds: S1 normal heart sound present, S2 normal heart sound present, no murmurs and no rubs Neuro General: patient oriented x3 Extrem General: Yes normal to inspection, No no pedal edema and No calf tenderness Psych Appearance: grossly normal Mental Status: mental status grossly normal Speech and movement: Normal speech and movement present Office Procedures EKG Details: Today, read by me, sinus rhythm with right bundle branch block, left anterior fascicular block, possible septal infarct, age undetermined, rate 70, QTC 442 m illiseconds [id number], Complete Assessment & Plan Assessment & Plan (1) Non-ST elevation NH (NSTEMI): Code(s): I21.4 - Non-ST elevation (NSTEMI) myocardial infarction Category: Medical Plan: NSTEMI 05/22/2023 with symptom of chest discomfort. Echocardiogram showed EF 60-65%, basal inferior lateral and anterior lateral hypokinesis, circumflex territory. Cardiac catheterization on 05/25/2023 showing severe two-vessel CAD. He had stents placed to the proximal left circumflex and to the proximal RCA. He has been doing well without angina. He was on metoprolol but stopped it due to possible GI side effects. Continue aspirin indefinitely. Continue pravastatin with ideal LDL goal less than 70. Continue amlodipine and lisinopril for good blood pressure control. Signs and symptoms of angina reviewed. Cardiology follow-up in 6 months, sooner if needed (2) CAD (coronary artery disease): Comment: follows with [facility] Code(s): I25.10 - Atherosclerotic heart disease of [place] coronary artery without angina pectoris Category: Medical Qualifiers: Coronary Disease-Associated Artery/Lesion type: [place] artery [place] vs. transplanted heart: [place] heart Associated angina: unspecified whether angina present Qualified Code(s): I25.10 - Atherosclerotic heart disease of [place] coronary artery without angina pectoris Plan: As above (3) S/P cardiac cath: Comment: 05/25/2023, lad proximal 60% stenosis, mid 50% stenosis, D1 70% stenosis, left circumflex proximal 90% stenosis, angioplasty and ALVAREZ placed with residual 0% stenosis, OM1 50% stenosis RCA proximal 90% stenosis, angioplasty and ALVAREZ placed with residual 0% stenosis Code(s): Z98.890 - Other specified postprocedural states Category: Surgical Plan: As above (4) Stented coronary artery: Code(s): Z95.5 - Presence of coronary angioplasty implant and graft Category: Surgical Plan: ALVAREZ to the left circumflex and ALVAREZ to the RCA (5) Hyperlipidemia: Code(s): E78.5 - Hyperlipidemia, unspecified Category: Medical Qualifiers: Hyperlipidemia type: unspecified Qualified Code(s): E78.5 - Hyperlipidemia, unspecified Plan: [place] LDL goal less than 70. Labs from 10/21/2023 showed LDL 64. It seems that he was started on pravastatin after that time. He is reporting GI issues with his medications which is why he may have switched from atorvastatin to pravastatin. Recommend recheck of fasting lipids. orders placed. (6) HTN (hypertension): Code(s): I10 - Essential (primary) hypertension Category: Medical Qualifiers: Hypertension type: primary hypertension Qualified Code(s): I10 - Essential (primary) hypertension Plan: Blood pressure goal less than 130/80. Blood pressure elevated today, initially 156/66 however recheck done by me later in the visit 172/78. Recent labs did show elevated potassium. Recommend recheck of BMP. Will keep lisinopril at current dose, amlodipine is at 10 mg daily. Suggested starting hydralazine 10 mg b.i.d. and he declines. He says he has follow-up with his PCP in the near future and wants him to recheck his blood pressure and see if meds are needed. Reviewed low-salt diet with him. Periodic home blood pressure checks if able. Plan I discussed with the patient the persistent hypertension despite current medications and considered adding hydralazine, but the patient preferred to wait for Dr. Altman' evaluation. We reviewed the potential dietary contributions to hyperkalemia and planned for follow-up blood work. The patient was advised on managing diarrhea with dietary changes and [id number]-[id number] medications. Smoking cessation was recommended, and a follow-up visit was scheduled in six months. Orders: Orders Lipid Panel Today E78.5 - Hyperlipidemia, unspecified Liver Panel Today E78.5 - Hyperlipidemia, unspecified Patient Instructions: - Monitor blood pressure regularly and report any significant changes to Dr. Bustillos. - Limit intake of potassium-rich foods such as bananas and orange juice. - Use Imodium as needed for diarrhea and try to maintain a balanced diet. - Consider smoking cessation and discuss options with Dr. Bustillos. Patient was informed and verbally consented to the use of an ambient scribe for clinic note documentation during this visit. Visit time spent on chart review, interview, assessment, orders, documentation. Coding Level of Care Code Est Pt Level 4 (07029) Complex EM visit Add On G2211 Diagnoses Non-ST elevation NH (NSTEMI) I21.4 Coronary artery disease involving [place] coronary artery of [place] heart, unspecified whether angina present I25.10 Coronary Disease-Associated Artery/Lesion type: [place] artery [place] vs. transplanted heart: [place] heart Associated angina: unspecified whether angina present S/P cardiac cath Z98.890 Stented coronary artery Z95.5 Hyperlipidemia, unspecified hyperlipidemia type E78.5 Hyperlipidemia type: unspecified Primary hypertension I10 Hypertension type: primary hypertension CPT Codes EKG - CPT: [id number], Complete ([id number]) Time Spent (min) 32
[2025-02-13 09:06] VITALS: BP 156/66; PULSE 70; BMI 21.4
--- OUTSIDE RECORDS SUMMARY | 2025-02-13 10:30 | XMS_ITS | Patient Health Record ---
Author Organization Jemal Bustillos III, MD Address [address] [facility] [facility] [place] [address] Care Team Providers Care Grading Machine Feeder Name Role Phone Jemal Bustillos Primary Care [...] Electrolytes Reviewed date:12/30/2024 08:44:06 PM Interpretation: Performing Lab:[facility], [address] [place] [address] Notes/Report: Sodium 137 135-145 mmol/L Potassium 5.2 3.3-5.1 mmol/L Chloride 102 96-108 mmol/L Carbon Dioxide 27 22-29 mmol/L Anion Gap 13 12-20 Complete Blood Count Auto Di ff Reviewed date:03/13/2024 07:51:08 AM Interpretation: Performing Lab:[facility], [address] [place] [address] Notes/Report: White Blood Count 9.7 4.8-10.8 X10*3/uL [...] Panel Reviewed date:03/13/2024 07:51:08 AM Interpretation: Performing Lab:[facility], [address] [place] [address] Notes/Report: Sodium 139 135-145 mmol/L Potassium 5.5 3.3-5.1 mmol/L Chloride 109 96-108 mmol/L Carbon Dioxide 22 22-29 mmol/L Anion Gap 14 12-20 Blood Urea Nitrogen 26 9-16 mg/dL Creatinine 1.13 0.5-1.4 mg/dL Estimated Glomerular Filt Rate > 60 NOTE: For -Polish individuals, multiply the result by 1.210. Chronic [...] Panel Reviewed date:03/13/2024 07:51:08 AM Interpretation: Performing Lab:[facility], [address] [place] [address] Notes/Report: Triglycerides 174 <150 mg/dL Desirable Triglyceride: [...] Panel Reviewed date:03/13/2024 07:51:08 AM Interpretation: Performing Lab:[address] [address] Notes/Report: Sodium 137 135-145 mmol/L Potassium 5.3 3.3-5.1 mmol/L Chloride 106 96-108 mmol/L Carbon Dioxide 24 22-29 mmol/L Anion Gap 12 12-20 Blood Urea Nitrogen 29 9-16 mg/dL Creatinine 1.05 0.5-1.4 mg/dL Estimated Glomerular Filt Rate > 60 NOTE: For -Polish individuals, multiply the result by 1.210. Chronic Kidney Disease: Estimated GFR < 60 mL/min/1.73m2 Severe Kidney Disease: Estimated GFR < 15 mL/min/1.73m2 Glucose Random 338 60-115 mg/dL Calcium 9.6 8.4-10.2 mg/dL Magnesium Reviewed date:03/13/2024 07:51:08 AM Interpretation: Performing Lab:[facility], [address] [place] [address] Notes/Report: Magnesium 1.9 1.6-2.6 mg/dL Complete Blood Count Auto Di ff Reviewed date:05/06/2024 06:59:37 AM Interpretation: Performing Lab:[facility], [address] [place] [address] Notes/Report: White Blood Count 11.6 4.8-10.8 X10*3/uL [...] Panel Reviewed date:05/06/2024 06:59:37 AM Interpretation: Performing Lab:[facility], [address] [place] [address] Notes/Report: Sodium 135 135-145 mmol/L Potassium 4.9 [...] Culture Reviewed date:05/06/2024 06:59:37 AM Interpretation: Performing Lab:[facility], [address] [place] [address] Notes/Report: Urine Culture Report Result Urine Culture 10,000 to 50,000 cfu/ml Urine Culture Mixed bacterial lisa a characteristic of Urine Culture urogenital contamination. SARS-CoV2/FLU/RSV Reviewed date:05/06/2024 06:59:37 AM Interpretation: Performing Lab:[address] [address] Notes/Report: Influenza A PCR NEGATIVE Negative Influenza [...] by authorized laboratories. Testing performed on the [employer] GeneXpert utilizing real-time RT-PCR. All SARS CoV2 and positive influenza A/B results are reported to [facility]. UA ClnCatch+Micro w/rflx Cul t Reviewed date:05/06/2024 06:59:37 AM Interpretation: Performing Lab:[address] [address] Notes/Report: [id number] Urine, Clean Catch Color Urine Yellow Appearance Urine Clear PH 5.0 5.0-9.0 Glucose Urine UA 250 Negative mg/dL Urine Blood Negative Negative Specific [place] - Urine 1.015 1.005-1.025 Urine Protein 30 [...] date:05/06/2024 06:59:37 AM Interpretation: Performing Lab: Notes/Report: [address] [address] Ultrasound Report Signed Patient: Antolin Perdomo MR#: [id number] 680 : 1940 Acct:[id number] Age/Sex: 83 / M ADM Date: 05/04/24 Loc: HO.ED Attending Dr: Ordering Physician: Denia Luong MD Date of Service: 05/04/24 Procedure(s): US abdomen limited Accession Number(s): [id number] cc: Denia Luong MD; Jemal Bustillos MD [...] by: Polo Riley MD 05/04/2024 02:21 PM [facility] Dictated By: Polo Wu MD Signed By: <Electronically signed by Polo Weeks MD in OV> 05/04/24 1421 DD/ 1317 TD/TT: 05/04/24 1324 Audio Specialist: [place] [address] Ultrasound Report Signed Patient: Radha Perdomo MR#: [id number] 680 : 1940 Acct:[id number] Age/Sex: 83 / M ADM Date: 05/04/24 Loc: HO.ED Attending Dr: Ordering Physician: Denia Luong MD Date of Service: 05/04/24 Procedure(s): US abdomen limited Accession Number(s): [id number] cc: Denia Luong MD ; Jemal Bustillos [...] by: Polo Riley MD 05/04/2024 02:21 PM [facility] Dictated By: Polo Camacho MD Signed By: <Electronically signed by Polo Weeks MD in OV> 05/04/24 1421 DD/ 1317 TD/TT: 05/04/24 1324 Audio Specialist: XR chest 2V Reviewed date:05/06/2024 06:59:37 AM Interpretation: Performing Lab: Notes/Report: [address] [address] XRay Report Signed Patient: Antolin Perdomo MR#: [id number] 680 : 1940 Acct:[id number] Age/Sex: 83 / M ADM Date: 05/04/24 Loc: HO.ED Attending Dr: Ordering Physician: Denia Luong MD Date of Service: 05/04/24 Procedure(s): XR chest 2V Accession Number(s): [id number] cc: Denia Luong MD; Jemal Bustillos MD [...] 05/04/24 1113 DD/ 1048 TD/TT: 05/04/24 1108 Audio Specialist: [address] [address] XRay Report Signed Patient: Radha Perdomo MR#: [id number] 680 : 1940 Acct:[id number] Age/Sex: 83 / M ADM Date: 05/04/24 Loc: HO.ED Attending Dr: Ordering Physician: Denia Luong MD Date of Service: 05/04/24 Procedure(s): XR el[address] st 2V Accession Number(s): [id number] cc: Denia Luogn MD ; Jemal Bustillos MD EXAMINATION: XR [...] 05/04/24 1113 DD/ 1048 TD/TT: 05/04/24 1108 Audio Specialist: US bladder Reviewed date:05/30/2024 11:42:26 AM Interpretation: Performing Lab: Notes/Report: [address] [address] Ultrasound Report Signed Patient: Antolin Perdomo MR#: [id number] 680 : 1940 Acct:[id number] Age/Sex: 84 / M ADM Date: 05/18/24 Loc: HO.US Attending Dr: Les Alcantar MD Ordering Physician: Les Alcantar MD Date of Service: 05/18/24 Procedure(s): US bladder Accession Number(s): [id number] cc: Les Alcantar MD; Jemal Bustillos MD [...] 05/28/24 0901 DD/ 1417 TD/TT: 05/18/24 1426 Audio Specialist: [address] [address] Ultrasound Report Signed Patient: Radha Perdomo MR#: [id number] 680 : 1940 Acct:[id number] Age/Sex: 84 / M ADM Date: 05/18/24 Loc: HO.US Attending Dr: Geovanni Rascon MD Ordering Physician: Les Alcantar MD Date of Service: 05/18/24 Procedure(s): US bladder Accession Number(s): [id number] cc: Les Alcantar MD; Jemal Bustillos MD [...] are characteristic of coarse calcifications. . Electronically carter d by: Lana Borja MD 05/28/2024 09:01 AM [facility] Dictated By: Lana Borja MD Signed By: <Electronically signed by Lana Borja MD in OV> 05/28/24 0901 DD/ 1417 TD/TT: 05/18/24 1426 Audio Specialist: Glucose, Whole Blood Reviewed date:05/26/2024 04:19:01 PM Interpretation: Performing Lab:[address] [address] Notes/Report: Glucose, Whole Blood 49 60-115 mg/dL METER # : [id number] Pathology Reviewed date:05/30/2024 11:42:26 AM Interpretation: Performing Lab:[address] [address] Notes/Report: --- Name: Antolin Perdomo Age/Sex: 84/M : 1940 [id number]#: [id number] Attend Dr: Paulino Garcia MD Re05/26/24 Status : [facility] Location: [facility] Disch: --- SPEC : [id number] RECD : 05/26/24 STATUS: ZACKARY GILL NUM: [id number] KRYSTAL: 05/26/24 [facility] DR: Paulino Garcia MD ENTERED: 05/26/24 [...] measures up to 0.15 cm in thickness. Lower In Supervisor sections are submitt ed in a cassette labeled A1 to include the margin of resection of the cystic duct. CEDS Copies To: Jemal Bustillos MD [address] [place] [address], [address] [place] [address] Paulino Garcia MD [facility] [address] [place] [address] [email or web address] CONTINUED ON NEXT PAGE --- Name: Antolin Perdomo Age/Sex: 84/M : 1940 Unit#: [id number] Attend Dr: Paulino Garcia MD Re05/26/24 Status : [facility] Location: [facility] Disch: --- SPEC : [id number] RECD : 05/26/24 STATUS: ZACKARY GILL NUM: [id number] KRYSTAL: 05/26/24 [facility] DR: Paulino Garcia MD ENTERED: 05/26/24 57 SP TYPE: Surgical OTHR DR: Jemal Bustillos MD ORDERED: Chanelle Meraz L3 --- Signed (signature on file) Katya Darcy 05/29/24 1255 --- END OF REPORT Glucose, Whole Blood Reviewed date:05/26/2024 04:19:01 PM Interpretation: Performing Lab:[facility], [address] [place] [address] Notes/Report: Glucose, Whole Blood 185 60-115 mg/dL METER # : [id number] Glucose, Whole Blood Reviewed date:05/26/2024 04:19:01 PM Interpretation: Performing Lab:[facility], [address] [place] [address] Notes/Report: Glucose, Whole Blood 180 60-115 mg/dL METER # : [id number] Diabetic Eye Exam Reviewed date:07/24/2024 02:48:35 PM Interpretation:undefined Performing Lab: Notes/Report: undefined Glucose, Whole Blood Reviewed date:08/05/2024 09:22:41 AM Interpretation: Performing Lab:[facility], [address] [place] [address] Notes/Report: Glucose, Whole Blood 131 60-115 mg/dL METER # : [id number] Pathology Reviewed date:08/05/2024 09:22:41 AM Interpretation: Performing Lab:[facility], [address] [place] [address] Notes/Report: --- Name: Antolin Perdomo Age/Sex: 84/M : 1940 Unit#: [id number] Attend Dr: Les Alcantar MD Re07/24/24 Status : [facility] Location: [facility] Disch: --- SPEC : [id number] RECD: 07/24/24 STATUS: AIRKMisbah RIVASCallum NUM: [id number] KRYSTAL: 07/24/24-1259 [facility] DR: Les Alcantar MD ENTERED: 07/24/24- 18 [...] ed intradepartmentally. Copies To: Les Alcantar MD [facility] [address] [place] [address] [address] [place] [address] Jemal Bustillos MD [address] [place] [address], [address] [place], [place] [id number] --- Signed (signature on file) Rocyk Stacy MD 07/26/24 1426 --- END OF REPORT Complete Blood Count Auto Di ff Reviewed date:10/20/2024 09:05:17 AM Interpretation: Performing Lab:[facility], [address] [place] [address] Notes/Report: White Blood Count 10.6 4.8-10.8 X10*3/uL [...] NRBC Abs Auto 0.000 0.0-0.012 X10*3/uL Comprehensive [place]. Panel Fa st Reviewed date:10/20/2024 09:05:17 AM Interpretation: Performing Lab:[facility], [address] [place] [address] Notes/Report: Sodium 139 135-145 mmol/L Potassium 5.7 [...] Panel Reviewed date:10/20/2024 09:05:17 AM Interpretation: Performing Lab:[facility], [address] [place] [address] Notes/Report: Triglycerides 179 <150 mg/dL Desirable Triglyceride: [...] Random Reviewed date:10/20/2024 09:05:17 AM Interpretation: Performing Lab:[address] [address] Notes/Report: Creatinine Urine 51.26 Microalbumin Urine 417.0 Microalbum/Creatinine Ratio Ur 813.4 <30 ug/mg cr Albumin/Creatinine Ratio Reference Ranges: Normal: < 30 ug/mg creatinine Microalbuminuria: 30 - 300 ug/mg creatinine Clinical Albuminuria: > 300 ug/mg creatinine Hemoglobin A1c Reviewed date:10/20/2024 09:05:17 AM Interpretation: Performing Lab:[address] [address] Notes/Report: Hemoglobin A1c % 7.4 <6.0 % [...] average glucose, using the formula of the Z6I-Lkglykf Average Glucose study (ADAG), Diabetes Care, Vol.31,#8, Aug. 2007 US renal BI (Not yet review ed by provider) Interpretation: Performing Lab: Notes/Report: [address] [address] Ultrasound Report Signed Patient: Antolin Perdomo MR#: [id number] 680 : 1940 Acct:[id number] Age/Sex: 84 / M ADM Date: 01/22/25 Loc: . Attending Dr: Les Alcantar MD Ordering Physician: Les Alcantar MD Date of Service: 01/22/25 Procedure(s): US renal BI Accession Number(s): [id number] cc: Les Alcantar MD; Jemal Bustillos MD [...] 01/22/25 1613 DD/ 1612 TD/TT: 01/22/25 1612 Audio Specialist: [place] [address] Ultrasound Report Signed Patient: Radha Perdomo MR#: [id number] 680 : 1940 Acct:[id number] Age/Sex: 84 / M ADM Date: 01/22/25 Loc: HO.US Attending Dr: Geovanni Rascon MD Ordering Physician: Les Alcantar MD Date of Service: 01/22/25 Procedure(s): US sowmya al BI Accession Number(s): [id number] cc: Les Alcantar MD; Jemal Bustillos MD [...] OV> 01/22/25 161 DD/ 11 TD/TT: 01/22/251611 Audio Specialist: Reason For Referral Reason Evaluate and Treat [...] Problem Status W/U Status Risk Notes Problem 96466099 Hyperlipidemia (E78.5) Active confirmed His lipids are stable. A repeat fasting lipid profile will be done periodically. No change in his regimen was necessary today. Problem 008942607 Underweight (R63.6) Active confirmed His weight has recently been stable in and underweight range. Because of his weight loss will be investigated. It is likely COPD. Problem 17960443 Type 2 diabetes mellitus without complications (E11.9) Active confirmed His hemoglobin A1c has improved from 7.8 down to 7.4. Current therapy was continued with only one metformin tablet daily. Problem Hyperkalemia (01570964) Hyperkalemia (E87.5) Active confirmed His potassium level was 5.7. He was sent to repeat it. On repeat it was 5.2. Problem Chronic obstructive pulmonary disease (72060007) Chronic obstructive pulmonary disease, unspecified (J44.9) Active confirmed He is trying to stop smoking. He continues to consume 10 cigarettes daily. He is comfortable breathing room air. He has been compliant with his medications. Problem 86141171 Calculus of ureter (N20.1) Active confirmed A stent has b een inserted and then removed. The stone was removed and was calcium oxalate. It is free of pain at this time, but weakened and has lost 5 pounds with his recent surgery and hospitalization. Problem Calculus of kidney with calculus of ureter (499491224) Calculus of kidney with calculus of ureter (N20.2) Active confirmed He has had no renal colic since his last visit. He denies hematuria. Problem 506569997 GERD without esophagitis (K21.9) Active confirmed His reflux symptoms have been well controlled with medication. He has been sleeping through the night lately. Problem 05755061 Essential hypertension (I10) Active confirmed His blood pressure is currently stable at 142/62 and no change in his regimen was necessary. Problem 10172301 Tobacco dependence (F17.200) Active confirmed He continues to smoke about 20 cigarettes per day. I discussed smoking cessation with him at great length today. Problem 68700364 COPD (chronic obstructive pulmonary disease) (J44.9) Active confirmed He continue s to smoke about 10 cigarettes daily. He is comfortable breathing room air at rest. At this point he does not need home oxygen. We have discussed smoking cessation strategies at length today. He was offered medications and we'll consider it. Problem 34195788 Hearing loss, bilateral (H91.93) Active confirmed There has been no change in his hearing. He did quite well over the telephone today. Problem 225721857 Pulmonary nodule (R91.1) Active confirmed He has a 7 mm right lower lobe nodule which will be followed carefully. Problem Contracture of palmar fascia (678736690) Dupuytrens contracture (M72.0) Active confirmed He has mild to moderate bilateral Dupuytren's contracture in the palm of each hand. It has become painful in the left hand recently. Problem 140951216 Peripheral arterial disease (I73.9) Active confirmed He continues to have claudication primarily in his left leg. He has seen his vascular surgeon recently. She has operated on the left leg. It is warm today. He complains of pain in his left leg with walking length of the [employer] store. Problem 379984358 Cataract (H26.9) Active confirmed Problem 669484697 Lumbar spine pain (M54.5) Active confirmed The back pain i s minimal at this time. I recommended no heavy lifting. His current regimen. We'll continue. Problem 187146101 Complex renal cyst (N28.1) Active confirmed The cyst will b e imaged periodically. Problem 461004900 Abnormal liver function tests (R79.89) Active confirmed The cause of hi s abnormal transaminases enzymes will be sought. Problem 515530304 Acute asthmatic bronchitis (J45.909) Active confirmed He clearly has an antecedent viral syndrome and likely has a bacterial bronchitis. He was given an antibiotic. Follow-up was arranged. Problem 203335502 Benign prostatic hyperplasia, unspecified whether lower urinary tract symptoms present (N40.0) Active confirmed He rises from sleep 3 or 4 times a night to urinate. We have discussed lifestyle modification as a way to reduce nocturia. A prostate procedure has been scheduled by his urologist in the near future. Problem 318699154 S/P cholecystectomy (Z90.49) Active confirmed He underwent a cholecystectomy for acute cholelithiasis 14 days ago. He is now recovering at home. He remains weak but his appetite is fair. Problem 382223112540684 Left carotid artery stenosis (I65.22) Active confirmed He has had an endarterectomy and now has a good pulse in the neck. Problem Atherosclerotic heart disease of platinum coronary artery without angina pectoris (804064872032648 ) Arteriosclerotic coronary artery disease (I25.10) Active confirmed He recently had an angioplasty of the right coronary artery and 2 stents put into the left system May 25, 2023 at [facility]. He says he is unable to [...] Date Provider Diagnosis Jemal Bustillos III, MD [address] [place] [address] [place] [address] 04/06/2024 Jemal Bustillos Tobacco dependence F17.200 ; Type 2 diabetes mellitus without complications E11.9 ; Hyperlipidemia E78.5 ; COPD (chronic obstructive pulmonary disease) J44.9 ; Essential hypertension I10 and Nocturia R35.1 Jemal Bustillos III, MD [address] [place] [address] [place] [address] 06/07/2024 Jemal Bustillos Tobacco dependence F17.200 ; [...] artery stenosis I65.22 Jemal Bustillos III, MD [address] [place] [address] [place] [address] 06/27/2024 Jemal Bustillos Tobacco dependence F17.200 ; [...] function tests R79.89 Jemal Bustillos III, MD [address] [place] [address] [place] [address] 07/28/2024 Jemal Bustillos Tobacco dependence F17.200 ; [...] renal cyst N28.1 Jemal Bustillos III, MD [address] [place] [address] [place] [address] 10/11/2024 Jemal Bustillos Tobacco dependence F17.200 ; [...] arterial disease I73.9 Jemal Bustillos III, MD [address] [place] [address] [place] [address] 10/25/2024 Jemal Bustillos Tobacco dependence F17.200 ; COPD (chronic obstructive pulmonary disease) J44.9 ; Hyperkalemia E87.5 ; Hearing loss, bilateral H91.93 ; Type 2 diabetes mellitus without complications E11.9 ; Pulmonary nodule R91.1 ; Left carotid artery stenosis I65.22 ; Benign prostatic hyperplasia, unspecified whether lower urinary tract symptoms present N40.0 and Dupuytrens contracture M72.0 Jemal Bustillos III, MD [address] [place] [address] [place] [address] 12/26/2024 Jemal Bustillos Tobacco dependence F17.200 ; COPD (chronic obstructive pulmonary disease) J44.9 ; Type 2 diabetes mellitus without complications E11.9 ; Hearing loss, bilateral H91.93 ; GERD without esophagitis K21.9 ; Lumbar spine pain M54.5 and Dupuytrens contracture M72.0 Jemal Bustillos III, MD [address] [facility] [place] [address] 03/14/2024 Jemal Bustillos III, MD [address] [place] [address] [place] [address] 03/15/2024 Jemal Bustillos III, MD [address] [facility] [place] [address] 04/10/2024 Jemal Bustillos III, MD [address] [facility] [place] [address] 04/12/2024 Jemal Bustillos III, MD [address] [place] [address] [place] [address] 04/19/2024 Jemal Bustillos III, MD [address] [place] [address] [place] [address] 04/21/2024 Jemal Bustillos III, MD [address] [place] [address] [place] [address] 04/21/2024 Jemal Bustillos III, MD [address] [place] [address] [place] [address] 04/24/2024 Jemal Bustillos III, MD [address] [place] [address] [place] [address] 05/02/2024 Jemal Bustillos III, MD [address] [place] [address] [place] [address] 05/04/2024 Jemal Bustillos III, MD [address] [place] [address] [place] [address] 2024 Jemal Bustillos III, MD [address] [place] [address] [place] [address] 06/07/2024 Jemal Bustillos III, MD [address] [place] [address] [place] [address] 06/15/2024 Jemal Bustillos III, MD [address] [place] [address] [place] [address] 07/05/2024 Jemal Bustillos Tobacco dependence F17.200 Jemal Bustillos III, MD [address] [place] [address] [address] [place] [address] 07/12/2024 Jemal Bustillos III, MD [address] [place] [address] [address] [place] [address] 08/14/2024 Jemal Bustillos Assessments Encounter Date Diagnosis [...] the left system May 25, 2023 at [facility]. He says he is unable to [...] left leg with walking length of the [employer] store. 07/28/2024 Chronic obstructive pulmonary disease, unspecified [...] the left system May 25, 2023 at [facility]. He says he is unable to [...] the left system May 25, 2023 at [facility]. He says he is unable to [...] left leg with walking length of the [employer]. Plan Of Treatment Pending Test Test [...] Details Provider Name:Jemal Bustillos, 03/29/2025 09:00:00 AM, [address] [place] [address] DR, [address], [place], [address], Provider Name:Jemal Bustillos, 07/30/2025 09:30:00 AM, [address] [place] [address] [address], [place], [address], Insurance Providers Payer Name Payer Address Payer Phone Subscriber Number Group Number Insured Name Patient Relationship to Insured Coverage Start Date Coverage End Date [facility] [address] [facility] [address] [place] [address] [id number] Antolin Perdomo Self - patient is the insured MEDICAID [facility] [address] [place] [id number] Antolin Perdomo Self - patient is the insured MEDICARE [employer] [address] [place] [address] [id number] Antolin Perdomo Self - patient is the [...] Cardiac cath with 2 stent placements at [facility] 04/2023 Cystoscopy with left uretera l stent subsequently removed, ureterolithiasis 09/2022 left carotid endarterectomy [facility], Dr. Alonso 09/2017 bilateral cataracts Hospitalization History Reason Date(Month/Year) Hospitalized at [facility] TIA 08/2017
--- OUTSIDE RECORDS SUMMARY | 2025-02-13 10:30 | XMS_ITS | Clinical Summary ---
Author Organization [facility] Address [address] [place] [address] Phone Care Team Providers Care Assembler Dc Field Yoke Name Role Phone Unavailable Primary Care Provider [...] Insurance [employer] MEDIC[employer] HMO REPLACEMENT [address] [place] [address] MEDICARE HMO REPLACEMENT MEDICARE HMO REPLACEMENT [address] [address] [address] HMO REPL[address] [place] [address] MEDICARE HMO REPLACEMENT [employer] H[employer] REPLACEMENT Additional Source Comments The information contained in this document represents components of the legal health record. It is not the complete legal health record.[facility]
--- OUTSIDE RECORDS SUMMARY | 2025-02-13 10:31 | XMS_ITS | Patient Health Record ---
Author Organization [facility] Address [address] [place] [id number] Care Team Providers Care Customer Records Division Supervisor Name Role Phone Ileana Bustillos MD Primary Care Provider UnavailNicolás Cheney Jr Unavailable [phone] Allergies No Known Allergies Reason For Referral [...] Problem Status W/U Status Risk Notes Problem [id number] Acute gastritis without hemorrhage, unspecified gastritis type (K29.00) Active confirmed Plan Of Treatment No Information Insurance Providers Payer Name Payer Address Payer Phone Subscriber Number Group Number Insured Name Patient Relationship to Insured Coverage Start Date Coverage End Date [facility] [address] [facility] [place] [phone] [id number] VANESSABETTY Gallegos Self - patient is the insured MEDICAID OF [employer] [address] [place] [phone] [id number] VANESSABETTY Gallegos Self - patient is the insured Medical (General) History Medical History History ICD Code Diabetes mellitus Coronary artery disease with history NSTEMI and PCI with stent placement x205/22 Hypertension Hyperlipidemia Peripheral vascular disease TIA Nephrolithiasis Back pain Surgical History Surgery Date(Month/Year) PCI/ALVAREZ x2 05/22/2023 Kidney stone removal 09/28/21 Iliac artery stent placement
== END 2025-02-13 09:37 | disposition home or self-care (01) ==
LOC: HO.HCS 08:42
PROVIDERS: PCP Internal Medicine Medical Oncology; Visit Provider Nurse Practitioner Family
DX: I21.4 Non-ST elevation (NSTEMI) myocardial infarction (principal); I25.10 Atherosclerotic heart disease of native coronary artery without angina pectoris; Z98.890 Other specified postprocedural states; Z95.5 Presence of coronary angioplasty implant and graft; E78.5 Hyperlipidemia, unspecified; I10 Essential (primary) hypertension
CPT/HCPCS: 93010; 99214; G2211

== ENCOUNTER → 2025-02-13 08:42 | Outpatient (BNVA) | payer MEDICARE, MEDICAID, SELFPAY | PROVIDERS: PCP Internal Medicine Medical Oncology; Visit Provider Nurse Practitioner Family | DX: I10 Essential (primary) hypertension (principal); E78.5 Hyperlipidemia, unspecified; Z95.5 Presence of coronary angioplasty implant and graft; I21.4 Non-ST elevation (NSTEMI) myocardial infarction; I25.10 Atherosclerotic heart disease of native coronary artery without angina pectoris | CPT/HCPCS: 93005; 99212 ==

== ENCOUNTER 2025-02-19 15:28 | Emergency (ER) | payer MEDICARE, MEDICAID, SELFPAY ==
--- OUTSIDE RECORDS SUMMARY | 2024-12-26 05:30 | XMS_ITS ---
Demographics Address [address] [place] [phone] Mobile Email Address Preferred Language en
--- NOTE | ~2025-02-19 | CT_ITS ---
CLINICAL HISTORY: diffuse abd pain CT abdomen and pelvis with contrast Comparison: CT/SR - CT ABDOMEN PELVIS WITH IV CONTRAST - 10/21/23 17:59 EDT Findings: No consolidation or effusion. Calcified coronary atherosclerotic disease. Prior cholecystectomy. Left renal interpolar region cortical low-attenuation lesion, 4.9 cm, right renal lower pole 0.8 cm, upper pole 1.7 cm; renal cysts. Left renal interpolar region 0.3 cm, lower pole 0.5 cm, right interpolar region 0.4 cm nonobstructing nephroliths. The prostate is heterogeneous in attenuation and hypertrophic. No bowel obstruction, pneumoperitoneum, or pneumatosis. Left external common iliac artery endovascular stent. Focal> 60% stenosis of the left proximal femoral artery, axial image number 80 of 90 series 3. The appendix is not identified. [id number] osteopenia. Lumbar levoscoliosis. IMPRESSION: 1. No acute intraabdominal or pelvic pathology. 2. Nonobstructing bilateral nephrolithiasis. 3. Prostatic hypertrophy. Clinical correlation suggested. 4. Left external common iliac artery stent. 5. Calcified coronary atherosclerotic disease. 6. Interval cholecystectomy. This document has been electronically signed by: Billy Galloway MD on 02/19/2025 21:14:20
[2025-02-19 15:30] VITALS: BP 177/73; PULSE 100; RESP 16; TEMP 36.1; O2SAT 95; BMI 24.7
--- NOTE | 2025-02-19 15:31 | ED.ABDPAIN ---
HPI - Abdominal Pain General Chief Complaint: Abdominal Pain Stated Complaint: abd pain Time Seen by Provider: 02/19/25 19:47 Source: patient Mode of arrival: ambulatory Limitations: no limitations History of Present Illness ED Provider: Dr. Laya Gomez HPI narrative: Patient comes to the emergency room complaining of diffuse abdominal pain. Patient states that over last 2 weeks he has been having a lot of abdominal distention. Patient reports a large amount of flatus and burping. Patient states that he recently was seen by his primary care physician, patient was prescribed medication for gastritis/GERD. Patient states that it was working well until this morning. Patient denies nausea vomiting or diarrhea. Denies fever chills. Patient states that he recently had a surgery for his prostate, denies any hematuria or dysuria. Denies flank pain. Related Data Home Medications ?Medication ?Instructions ?Recorded ?Confirmed aspirin 81 mg tablet,delayed 81 mg PO DAILY 09/24/22 02/13/25 release glyburide 5 mg tablet 10 mg PO DAILY@0900 09/14/23 02/13/25 metformin 1,000 mg tablet 1,000 mg PO DAILY 08/02/24 02/13/25 Previous Rx's ?Medication ?Instructions ?Recorded amlodipine 10 mg tablet 10 mg PO DAILY #90 tabs 08/08/24 lisinopril 10 mg tablet 10 mg PO DAILY #90 tabs 08/30/24 pravastatin 20 mg tablet 20 mg PO BEDTIME #90 tabs 11/10/24 solifenacin 5 mg tablet 5 mg PO DAILY 30 days #30 tabs 02/02/25 cefuroxime axetil 250 mg tablet 250 mg PO BID #14 tabs 02/19/25 simethicone 250 mg capsule (Gas 250 mg PO BID PRN abdominal 02/19/25 Relief (simethicone)) distention #30 caps Allergies Allergy/AdvReac Type Severity Reaction Status Date / Time No Known Allergies (No Known Allergy Verified 02/19/25 15:32 Allergies*) Review of Systems Review of Systems Constitutional : No Weight loss, No Fever, No Chills, No Night Sweats, No Fatigue, No Malaise ENT/Mouth : No Hearing loss, No Ear Pain, No Nasal Congestion, No Sinus Pain, No Hoarseness, No sore throat, No Rhinorrhea, No Swallowing Difficulty Eyes: No Eye Pain, No Swelling, No Redness, No Foreign Body, No Discharge, No Vision Changes Cardiovascular : No Chest Pain, No SOB, No Dyspnea on Exertion, No Orthopnea, No Edema, No Palpitations Respiratory : No Cough, No Sputum, No Wheezing, No Smoke Exposure, No Dyspnea Gastrointestinal : No Nausea, No Vomiting, No Diarrhea, No Constipation, complaining of diffuse abdominal discomfort, no hematochezia or melena, complaining of large amount of flatus and burping Genitourinary : no irregular bleeding, No Dysuria, No Urinary Frequency, No Hematuria, No Urinary Incontinence, No Urgency, No Flank Pain, No Urinary Flow Changes, No Hesitancy Musculoskeletal : No joint pain, No Myalgias, No Joint Swelling Skin : No Skin Lesions, No rash Neuro : No Weakness, No Numbness, No Paresthesias, No Loss of Consciousness, No Dizziness, No Headache Psych : No Anxiety/Panic, No Depression, No SI/HI/AH/VH, No Social Issues, Heme/Lymph: No Bruising, No Bleeding,No Lymphadenopathy Endocrine : No Polyuria, No Polydipsia, No Temperature Intolerance PMFSH Past Medical History Medical History Hyperlipidemia CAD (coronary artery disease) Nephrolithiasis NSTEMI (non-ST elevated myocardial infarction) Nausea Acute cholecystitis Peripheral arterial disease TIA (transient ischemic attack) COPD (chronic obstructive pulmonary disease) Hearing loss Elevated cholesterol HTN (hypertension) Staghorn calculus Enlarged prostate Diabetes mellitus, type II Renal cysts, acquired, bilateral History of kidney stones Rotator cuff impingement syndrome Surgical History Hx of cardiac catheterization Hx of cystoscopy History of left-sided carotid endarterectomy Hx of cataract surgery Hx of lithotripsy History of surgery Social History Social History Household Members: None Household Members Other:: 0 Housing: House Housing Other:: apt. in duplex Are you a primary physician locums urgent care to a significant other at home: No Do you presently have visiting nurse or other home services: No Patient Tobacco Use Status: Current everyday Tobacco user Tobacco use type: Cigarette Cigarette Packs Per Day: 1.5 Cigarettes Per Day: 30.0 Years Smoked: 60 e-Cigarette/Vaping Use: Never Used Advance Directives: Yes Advance Directives on File: Yes Advance Directives Date on File: 09/29/22 service: Yes Current occupational status: employed Physical Exam ED Exam Exam: Appearance: Alert. Oriented X3. No acute distress. Eyes: Pupils equal, round and reactive to light. ENT: Pharynx normal. Neck: Normal inspection. Neck supple. No lymph nodes noted. No crepitus CVS: Normal heart rate and rhythm. Pulses normal. Normal S1 and S2 Respiratory: No respiratory distress. Breath sounds normal. No Wheezing. No rales Abdomen: Soft, slightly distended, discomfort to palpation in all quadrants, no significant pain, no rebound or guarding Skin: Skin warm and dry. Normal skin color. Normal skin turgor. Extremities: No lower extremity edema. No Lacerations. No Rash Neuro: Oriented X 3. No motor deficit. No sensory deficit. Moving all extremities. No slurred speech. CN 2 through 12 grossly intact Psych: calm, cooperative, normal affect Vital Signs: Vital Signs - 24 hr 02/19/25 15:30 02/19/25 19:37 Temperature 96.9 F 97.9 F Pulse Rate 100 77 Respiratory Rate 16 16 Blood Pressure 177/73 H 167/64 H Pulse Oximetry 95 97 Oxygen Delivery Method Room Air Room Air BMI result Body Mass Index 24.7 Course Course Course Narrative: This is a Rapid Medical Examination (RME) performed by Sunni Alfaro PA-C in triage. Full HPI, ROS, assessment and treatment plan per primary provider in the Main ED. Hx: 84 yo M here for eval of diffuse abd pain x this morning. no N/V/D, urinary sx. Plan: labs, UA Medical Decision Making Medical Decision Making MDM Narrative: Patient receiving IV morphine, Zofran, famotidine. I reviewed patient's inpatient records, in August of last year, patient had a HIDA scan, negative for cholecystitis. Patient states that after that, he did get a cholecystectomy. My interpretation of labs: Patient's white blood cell count within normal limits, no significant abnormality in patient's hematology, chemistry shows a potassium of 5.5, patient has had potassium elevation before. LFTs within normal limits, lipase normal. CT scan of the abdomen/pelvis does not show any acute intra-abdominal or pelvic pathology Overall, patient feeling much better. Urinalysis positive for UTI, patient was given the 1st dose of cefuroxime here in the emergency room. Up to a dose of simethicone Patient states that he feels well, and will like to be discharged home Differential Diagnosis Differential Diagnoses: The differential diagnosis associated with the presentation includes (Choledocholithiasis, pancreatitis, gastritis, peptic ulcer disease, peptic ulcer perforation) Admission/Observation Consideration of admission/observation: Escalation of care including admission/observation considered (Given patient's presentation, history , observation has been considered) Lab Data MDM Lab Attestation statement: I reviewed the patient's lab results. 02/19/25 15:59 02/19/25 15:59 Labs: Lab Results 02/19/25 02/19/25 Range/Units 15:59 21:16 WBC 9.6 (4.8-10.8) X10*3/uL RBC 4.20 L (4.60-5.80) X10*6/uL Hgb 13.2 L (14.0-18.0) g/dl Hct 38.7 L (42.0-52.0) % MCV 92.1 (80.0-98.0) fL MCH 31.4 (27.0-33.0) pg MCHC 34.1 (31.0-36.0) g/dl RDW 13.5 (11.0-16.0) % Plt Count 236 D (160-400) X10*3/uL MPV 10.4 (9.4-12.4) fL Immature Gran % (Auto) 0.4 (0.0-0.4) % Neut % (Auto) 66.3 (45-73) % Lymph % (Auto) 22.9 (20-40) % Emanuel % (Auto) 6.6 (2-11) % Eos % (Auto) 3.3 (0-4) % Baso % (Auto) 0.5 (0-2) % Lymph # (Auto) 2.2 (1.2-4.9) X10*3/uL Emanuel # (Auto) 0.6 (0.1-1.2) X10*3/uL Eos # (Auto) 0.3 (0.0-0.4) X10*3/uL Baso # (Auto) 0.1 (0.0-0.2) X10*3/uL Abs Immat Gran (auto) 0.04 H (0.00-0.03) X10*3/uL Absolute Neuts (auto) 6.4 (2.0-8.3) x10*3/uL Absolute Nucleated RBC 0.000 (0.0-0.012) X10*3/uL Nucleated RBC % (auto) 0.0 (0.0-0.2) /100WBC Smear Tech's Comments VERIFIED Sodium 138 (135-145) mmol/L Potassium 5.5 H (3.3-5.1) mmol/L Chloride 106 (96-108) mmol/L Carbon Dioxide 23 (22-29) mmol/L Anion Gap 15 (12-20) BUN 28 H (9-16) mg/dL Creatinine 1.10 (0.5-1.4) mg/dL Estim Creat Clear Calc 37.2 Estimated GFR > 60 Random Glucose 217 H (60-115) mg/dL Calcium 9.7 (8.4-10.2) mg/dL Magnesium 2.0 (1.6-2.6) mg/dL Total Bilirubin 0.2 (0.0-1.0) mg/dL AST 22 (5-37) U/L ALT 23 (0-40) U/L Alkaline Phosphatase 87 (39-117) U/L Total Protein 7.1 (6.5-8.0) g/dL Albumin 4.5 (3.5-5.0) g/dL Lipase 25 (8-78) U/L Urine Color Yellow Urine Appearance Clear Urine pH 5.0 (5.0-9.0) Ur Specific [place] 1.025 (1.005-1.025) Urine Protein 100 (2+) H (Neg-Trace) mg/dL Urine Glucose (UA) 100 H (Negative) mg/dL Urine Ketones Negative (Negative) mg/dL Urine Blood Trace H (Negative) Urine Nitrite Negative (Negative) Ur Leukocyte Esterase Moderate (2+) H (Negative) Urine RBC 0-2 (0-2) /HPF Urine WBC 21-50 H (0-5) /HPF Ur Squamous Epith Cells 0-2 (0-2) /HPF Urine Bacteria Trace (None Seen) Hyaline Casts 0-2 (0-2) /LPF Independent Interpretation I performed an independent interpretation of an: CT Scan Radiology Impression Discussion of test interpretation with radiology: I have reviewed the radiologist's reading. Radiologist Impression: No consolidation or effusion. Calcified coronary atherosclerotic disease. Prior cholecystectomy. Left renal interpolar region cortical low-attenuation lesion, 4.9 cm, right renal lower pole 0.8 cm, upper pole 1.7 cm; renal cysts. Left renal interpolar region 0.3 cm, lower pole 0.5 cm, right interpolar region 0.4 cm nonobstructing nephroliths. The prostate is heterogeneous in attenuation and hypertrophic. No bowel obstruction, pneumoperitoneum, or pneumatosis. Left external common iliac artery endovascular stent. Focal> 60% stenosis of the left proximal femoral artery, axial image number 80 of 90 series 3. The appendix is not identified. [id number] osteopenia. Lumbar levoscoliosis. IMPRESSION: 1. No acute intraabdominal or pelvic pathology. 2. Nonobstructing bilateral nephrolithiasis. 3. Prostatic hypertrophy. Clinical correlation suggested. 4. Left external common iliac artery stent. 5. Calcified coronary atherosclerotic disease. 6. Interval cholecystectomy. Medications Administered Discontinued Medications Generic Name Dose Route Start Last Admin Trade Name Freq PRN Reason Stop Dose Admin Famotidine 20 mg 02/19/25 19:53 02/19/25 20:43 Famotidine/Pf 20 Mg/2 Ml Vial IVPUSH 02/19/25 19:54 20 mg ONCE ONE Administration Iohexol 85 ml 02/19/25 20:31 02/19/25 20:32 Iohexol 350 Mg/Ml 100 Ml Infus..Btl IV 02/19/25 20:32 85 ml ONCE ONE Administration Morphine Sulfate 2 mg 02/19/25 19:53 02/19/25 20:41 Morphine Sulfate 2 Mg/Ml Cartridge IVPUSH 02/19/25 19:54 2 mg ONCE ONE Administration Protocol Ondansetron HCl 4 mg 02/19/25 19:53 02/19/25 20:40 Ondansetron Hcl 4 Mg/2 Ml Vial IVPUSH 02/19/25 19:54 4 mg ONCE ONE Administration Critical Care Time Critical Care Time Critical Care Time: Yes Total Critical Care Time: 35 Attestation: I have personally provided critical care time. Time includes review of lab data, radiology results, discussion with consultants, and monitoring for potential decompensation. Intervention performed as documented. Discharge Plan Discharge Clinical Impression: Abdominal pain, Acute UTI Patient Disposition: Home, Self-Care Instructions: Urinary Tract Infection in Men (ED), Abdominal Pain (ED) Additional Instructions: Please follow-up with your primary care physician tomorrow. If you have any worsening or new symptoms, please return to the emergency room or call 911 Prescriptions: New cefuroxime axetil 250 mg tablet 250 mg PO BID Qty: 14 0RF Gas Relief (simethicone) 250 mg capsule 250 mg PO BID PRN (Reason: abdominal distention) Qty: 30 0RF No Action amlodipine 10 mg tablet 10 mg PO DAILY Qty: 90 3RF lisinopril 10 mg tablet 10 mg PO DAILY Qty: 90 3RF pravastatin 20 mg tablet 20 mg PO BEDTIME Qty: 90 2RF aspirin 81 mg Tablet,Delayed Release (Dr/Ec) 81 mg PO DAILY glyburide 5 mg tablet 10 mg PO DAILY@0900 solifenacin 5 mg tablet 5 mg PO DAILY 30 Days Qty: 30 2RF metformin 1,000 mg tablet 1,000 mg PO DAILY Print Language: Bhutanese
[2025-02-19 16:19] LABS: Alanine Aminotransferase 23 U/L (0-40); Albumin Level 4.5 g/dL (3.5-5.0); Alkaline Phosphatase 87 U/L (39-117); Anion Gap 15 (12-20); Aspartate Amino Transferase 22 U/L (5-37); Blood Urea Nitrogen 28 mg/dL (9-16); Calcium 9.7 mg/dL (8.4-10.2); Carbon Dioxide 23 mmol/L (22-29); Chloride 106 mmol/L (96-108); Creatinine Clr Calc Pharmacy 37.2; Estimated Glomerular Filt Rate > 60; Lipase 25 U/L (8-78); Magnesium 2.0 mg/dL (1.6-2.6); Potassium 5.5 mmol/L (3.3-5.1); Sodium 138 mmol/L (135-145); Total Protein 7.1 g/dL (6.5-8.0)
[2025-02-19 16:24] LABS: Hemoglobin 13.2 g/dl (14.0-18.0); Mean Corpuscular Volume 92.1 fL (80.0-98.0); NRBC Abs Auto 0.000 X10*3/uL (0.0-0.012); NRBC Pct Auto 0.0 /100WBC (0.0-0.2); PLT CLUMP 1; SCAN SMEAR FLAG 1
[2025-02-19 16:26] LABS: Hematocrit 38.7 % (42.0-52.0); Imm Gran Abs Auto 0.04 X10*3/uL (0.00-0.03); Imm Gran Pct Auto 0.4 % (0.0-0.4); Lymphocytes Absolute Auto 2.2 X10*3/uL (1.2-4.9); MANUAL DIFF FLAG SCAN; Mean Corpuscular HGB Conc 34.1 g/dl (31.0-36.0); Mean Corpuscular Hemoglobin 31.4 pg (27.0-33.0); Red Blood Count 4.20 X10*6/uL (4.60-5.80)
[2025-02-19 16:38] LABS: White Blood Count 9.6 X10*3/uL (4.8-10.8)
[2025-02-19 16:48] LABS: Platelet Count 236 X10*3/uL (160-400)
[2025-02-19 19:37] VITALS: BP 167/64; PULSE 77; RESP 16; TEMP 36.6; O2SAT 97
--- NOTE | 2025-02-19 19:53 | ECG_ITS ---
Test Reason : ABD PAIN Blood Pressure : */* mmHG Vent. Rate : 69 BPM Atrial Rate : 69 BPM P-R Int : 158 ms QRS Dur : 118 ms QT Int : 404 ms P-R-T Axes : 76 -59 49 degrees QTcB Int : 432 ms Normal sinus rhythm Right bundle branch block Left anterior fascicular block Bifascicular block Septal infarct , age undetermined Abnormal ECG When compared with ECG of 21-Oct-2023 12:58, No significant change was found Referred By: Laya Gomez Electronically Signed By: Richie Brown
[2025-02-19] MEDS: iohexoL 350 MG/ML 100 ML INFUS..BTL 85 ML IV (20:32)
[2025-02-19 21:22] LABS: Appearance Urine Clear; Glucose Urine UA 100 mg/dL (Negative); PH 5.0 (5.0-9.0); Specific Gravity - Urine 1.025 (1.005-1.025); UMIC TRIGGER UACC YES
[2025-02-19 21:27] LABS: UACC Culture Trigger YES
[2025-02-19 22:02] VITALS: BP 167/64; PULSE 77; RESP 16; TEMP 36.6; O2SAT 97
== END 2025-02-19 22:03 | disposition home or self-care (01) ==
PROVIDERS: Physician Assistant Medical; Emergency Provider Emergency Medicine; PCP Internal Medicine Medical Oncology
DX: N39.0 Urinary tract infection, site not specified (principal); R10.9 Unspecified abdominal pain; I10 Essential (primary) hypertension; J44.9 Chronic obstructive pulmonary disease, unspecified; Z72.0 Tobacco use; Z79.899 Other long term (current) drug therapy; Z86.79 Personal history of other diseases of the circulatory system
CPT/HCPCS: 36415; 74177; 80053; 81001; 83690; 83735; 85025; 87086; 87088; 87186; 93005; 96374; 96375; 99284; 99285; J1308; J2270; J2405; Q9967

== ENCOUNTER → 2025-02-19 19:53 | Outpatient (BNV) | payer MEDICARE, MEDICAID, SELFPAY | PROVIDERS: Emergency Provider Emergency Medicine; PCP Internal Medicine Medical Oncology; Visit Provider Radiology Diagnostic Radiology | DX: N20.0 Calculus of kidney (principal); I25.84 Coronary atherosclerosis due to calcified coronary lesion | CPT/HCPCS: 74177 ==

== ENCOUNTER → 2025-02-19 19:53 | Outpatient (BNV) | payer MEDICARE, MEDICAID, SELFPAY | PROVIDERS: Emergency Provider Emergency Medicine; PCP Internal Medicine Medical Oncology; Visit Provider Internal Medicine Cardiovascular Disease | DX: I45.2 Bifascicular block (principal) | CPT/HCPCS: 93010 ==

== ENCOUNTER 2025-05-08 09:06 | Outpatient (AMB) | payer MEDICARE, MEDICAID, SELFPAY ==
--- NOTE | 2025-05-08 09:07 | A.OFFVIS_ITS ---
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 He is a patient of Dr. Bustillos. 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 This has been stopped Follow-up six-month check PVR and UA Lower urinary tract symptoms Bladder ultrasound 50 cc residual, 30 cc prostate with calcifications - 07/25 07/25 plasma button PSA 06/22 0.8 Nephrolithiasis Renal imaging with large stones on left side Bilateral cysts CT angiogram with 2 cm stone left renal pelvis - CT 06/22 oz 2 cm stone within left renal pelvis - 03/22 renal ultrasound 4 mm stone bilateral Intervention - 10/20 left USR Composition - 10/20 calcium oxalate monohydrate 80% Did not tolerate potassium citrate On vitamin B6 PFSH Medical History Hyperlipidemia CAD (coronary artery disease) Nephrolithiasis NSTEMI (non-ST elevated myocardial infarction) Nausea Acute cholecystitis Peripheral arterial disease TIA (transient ischemic attack) COPD (chronic obstructive pulmonary disease) Hearing loss Elevated cholesterol HTN (hypertension) Staghorn calculus Enlarged prostate Diabetes mellitus, type II Renal cysts, acquired, bilateral History of kidney stones Rotator cuff impingement syndrome Surgical History Hx of cardiac catheterization Hx of cystoscopy History of left-sided carotid endarterectomy Hx of cataract surgery Hx of lithotripsy History of surgery Social History Household Members: None Household Members Other:: 0 Housing: House Housing Other:: apt. in duplex Are you a primary care coordination manager to a significant other at home: No Do you presently have visiting nurse or other home services: No Patient Tobacco Use Status: Current everyday Tobacco user Tobacco use type: Cigarette Cigarette Packs Per Day: 1.5 Cigarettes Per Day: 30.0 Years Smoked: 60 e-Cigarette/Vaping Use: Never Used Advance Directives Date on File: 09/29/22 service: Yes Current occupational status: employed Review of Systems Const Denies chills and Denies fever(s) Card Reports no additional complaints and Denies syncope Resp Denies cough GI Denies abdominal pain and Denies heartburn Reports as per HPI and Denies change in libido Neuro Denies syncope Psych Denies change in libido Endo Denies change in libido Physical Exam Const General: cooperative, healthy appearing, comfortable and no acute distress Orientation/consciousness: patient oriented x3 HEENT Face and sinus: Yes normal facial exam Mouth: moist mucous membranes Neck Neck: Yes normal visual inspection, Yes full ROM and Yes trachea midline Chest Chest palpation & inspection: normal inspection of the chest Resp Effort & Inspection: normal respiratory effort, able to speak in complete sentences and no respiratory distress GI Inspection: Yes normal to inspection Back/Spine/Pelvis Cervical Spine: normal cervical lordosis Thoracic/Lumbar Spine: thoracic and lumbar spine normal to inspection Skin General skin exam: no rashes or lesions noted Neuro General: patient oriented x3, gait normal, tone normal and moves all extremities Extrem General: Yes normal to inspection and Yes capillary refill normal Office Procedures Post Void Residual Post Residual Void Post Void Residual (PVR): 99 19531-Hyvf Void Residual by ultrasound Assessment & Plan Assessment & Plan (1) Enlarged prostate: Code(s): N40.0 - Benign prostatic hyperplasia without lower urinary tract symptoms Category: Medical (2) Nephrolithiasis: Code(s): N20.0 - Calculus of kidney Category: Medical Plan Six-month follow-up PVR and UA Medications: Discontinued cefuroxime axetil Discontinued Reason: Patient Completed Course 250 mg PO BID 14 tabs 0RF solifenacin Discontinued Reason: Patient Completed Course 5 mg PO DAILY 30 days 30 tabs 2RF N32.81 - Overactive bladder Patient Instructions: This note is constructed using voice recognition software. While every effort has been made to ensure accuracy director retirement errors may have been included. Imaging studies, laboratory and physical exam results were discussed and reviewed in detail. No major barriers to patient understanding were identified. An opportunity to ask questions regarding the treatment plan was provided. All questions were answered. The patient expressed understanding and agreement with the above treatment plan. The patient is aware they should contact our office by phone for worsening of their current condition or the appearance of new urologic symptoms. Compliance is encouraged with any medications and followup testing that is ordered. It is a privilege to participate in the urologic care of your patient. If you have any questions or concerns regarding treatment for the above conditions, or other urologic issues, please do not hesitate to contact me. The office telephon e contact is [phone]. Sincerely, Dr Les Alcantar MD, [facility] - Urology Compassionate Specialist Care for the Genitourinary System Coding Level of Care Code Est Pt Level 3 (32693) Complex visit Add On G2211 Diagnoses Enlarged prostate N40.0 Nephrolithiasis N20.0 CPT Codes Post Residual Void - PVR CPT Code: 19412-Hhyd Void Residual by ultrasound ([id number])
== END 2025-05-08 09:53 | disposition home or self-care (01) ==
LOC: HO.HUSH 09:06
PROVIDERS: PCP Internal Medicine Medical Oncology; Visit Provider Urology
DX: N40.0 Benign prostatic hyperplasia without lower urinary tract symptoms (principal); N20.0 Calculus of kidney
CPT/HCPCS: 99213; G2211

== ENCOUNTER → 2025-05-08 09:06 | Outpatient (BNVA) | payer MEDICARE, MEDICAID, SELFPAY | PROVIDERS: PCP Internal Medicine Medical Oncology; Visit Provider Urology | DX: N40.0 Benign prostatic hyperplasia without lower urinary tract symptoms (principal); N20.0 Calculus of kidney; E11.9 Type 2 diabetes mellitus without complications | CPT/HCPCS: 51798; 99212 ==

== ENCOUNTER 2025-05-18 09:44 | Emergency (ER) | payer MEDICARE, MEDICAID, SELFPAY ==
--- OUTSIDE RECORDS SUMMARY | 2024-10-25 04:45 | XMS_ITS ---
Author Organization Jemal Bustillos III, MD Address [address] [place] [address] [place] [address] Care Team Providers Care Translation Director Name Role Phone Dr. Jemal Bustillos III Primary Care Provider [phone] Allergies Allergen (clinical drug ingredient) Drug/Non Drug Allergy documented on EMR Reaction Allergy Type Onset Date Status No Known Drug Allergy Unknown Drug Allergy Active Results Component Value Reference Range Notes Electrolytes Reviewed date:12/30/2024 08:44:06 PM Interpretation: Performing Lab:[facility], [address] [place] [address] Notes/Report: Sodium 137 135-145 mmol/L Potassium 5.2 3.3-5.1 mmol/L Chloride 102 96-108 mmol/L Carbon Dioxide 27 22-29 mmol/L Anion Gap 13 12-20 REASON FOR VISIT Follow up Medications Medication SIG (Take, Route, Frequency, Duration) Notes Start Date End Date Status predniSONE 20 MG 1 tablet with food or milk Orally Once a day 09/21/2023 Active Famotidine 20 MG 1 tablet at bedtime as needed Orally Once a day Active Albuterol Sulfate HFA 108 (90 Base) MCG/ACT 1 puff as needed Inhalation every 4 hrs 09/21/2023 Active Loratadine 10 MG 1 tablet Orally Once a day Active Clopidogrel Bisulfate 75 MG 1 tablet Orally Once a day Active Atorvastatin Calcium 20 MG 1 tablet Orally Once a day Active Aspirin Adult Low Dose 81 MG 1 tablet Orally Once a day Active Lisinopril 30 MG 1 tablet Orally Once a day 04/14/2023 Active Omeprazole 20 MG 1 capsule 30 minutes before morning meal Orally twice a day 07/23/2023 Active Metoprolol Succinate ER 25 MG 1 tablet Orally Once a day 07/08/2023 Active glyBURIDE 5 MG TAKE 2 TABLETS BY MOUTH EVERY MORNING Patient has Insurance PA approval from 07/05/2024- Active Pioglitazone HCl 15 MG 1 tablet Orally Once a day 04/06/2024 Active metFORMIN HCl 1000 MG TAKE 1 TABLET BY MOUTH TWICE A DAY FOR 30 DAYS Active Meclizine HCl 25 MG 1 tablet as needed Orally every 12 hrs 06/27/2024 Active Fluticasone Furoate 27.5 MCG/SPRAY 2 sprays (1 spray in each nostril) Nasally Once a day 06/07/2024 Active Tamsulosin HCl 0.4 MG Oral Active Social History Tobacco Use: Social History [...] e smoker (20-39 cigs/day) Vital Signs Temperature 97.9 degrees Fahrenheit 10/26/19 25 Blood pressure systolic 166 mm Hg 10/26/19 25 Blood pressure diastolic 57 mm Hg 025 Heart Rate 72 /min 10/25/2024 Height 65 in 10/25/2024 Weight 128 lbs 10/25/2024 BMI 21.3 kg/m2 10/25/2024 Encounters Encounter Location Date Provider Diagnosis Jemal Bustillos III, MD [address] [place] [address] [place] [address] 10/25/2024 Jemal Bustillos Tobacco dependence F17.200 ; COPD (chronic obstructive pulmonary disease) J44.9 ; Hyperkalemia E87.5 ; Hearing loss, bilateral H91.93 ; Type 2 diabetes mellitus without complications E11.9 ; Pulmonary nodule R91.1 ; Left carotid artery stenosis I65.22 ; Benign prostatic hyperplasia, unspecified whether lower urinary tract symptoms present N40.0 and Dupuytrens contracture M72.0 Assessments Encounter Date Diagnosis (ICD Code) Assessment Notes Treat ment Notes Treatment Clinical Notes 10/25/2024 Tobacco dependence (ICD-10 - F17.200) He continues to smoke about 10 cigarettes per day. I discussed smoking cessation with him at great length today. 10/25/2024 COPD (chronic obstructive pulmonary disease) (ICD-10 - J44.9) He continues to smoke about 10 cigarettes daily. He is comfortable breathing room air at rest. At this point he does not need home oxygen. We have discussed smoking cessation strategies at length today. He was offered medications and we'll consider it. 10/25/2024 Hyperkalemia (ICD-10 - E87.5) His potassium level was 5.7. He was sent to repeat it. On repeat it was 5.2. 10/25/2024 Hearing loss, bilateral (ICD-10 - H91.93) There has been no change in his hearing. He did quite well over the telephone today. 10/25/2024 Type 2 diabetes mellitus without complications (ICD-10 - E11.9) He has been continued on his current regimen without change. His glucose levels have been acceptable. He has been compliant with his treatment and diet. 10/25/2024 Pulmonary nodule (ICD-10 - R91.1) He has a 7 mm right lower lobe nodule which will be followed carefully. 10/25/2024 Left carotid artery stenosis (ICD-10 - I65.22) He has had an endarterectomy and now has a good pulse in the neck. 10/25/2024 Benign prostatic hyperplasia, unspecified whether lower urinary tract symptoms present (ICD-10 - N40.0) He rises from sleep 3 or 4 times a night to urinate. We have discussed lifestyle modification as a way to reduce nocturia. A prostate procedure has been scheduled by his urologist in the near future. 10/25/2024 Dupuytrens contracture (ICD-10 - M72.0) He has mild to moderate bilateral Dupuytren's contracture in the palm of each hand. It has become painful in the left hand recently. Plan Of Treatment Medication Medication Name Sig Start Date Stop Date Notes predniSONE 20 MG 1 tablet with food o r milk Orally Once a day 09/21/2023 Famotidine 20 MG 1 tablet at bedtime as needed Orally Once a day Albuterol Sulfate HFA 108 (90 Base) MCG/ACT 1 puff as needed Inhalation every 4 hrs 09/21/2023 Loratadine 10 MG 1 tablet Orally Once a day Clopidogrel Bisulfate 75 MG 1 tablet Orally Once a day Atorvastatin Calcium 20 MG 1 tablet Orally Once a day Aspirin Adult Low Dose 81 MG 1 tablet Orally Once a day Lisinopril 30 MG 1 tablet Orally Once a day 04/14/2023 Omeprazole 20 MG 1 capsule 30 minutes before morning meal Orally twice a day 07/23/2023 Metoprolol Succinate ER 25 MG 1 tablet Orally Once a day 07/08/2023 glyBURIDE 5 MG TAKE 2 TABLETS BY MOUTH EVERY MORNING Patient has Insurance PA approval from 07/05/2024-05/30/2025 Pioglitazone HCl 15 MG 1 tablet Orally O nce a day 04/06/2024 metFORMIN HCl 1000 MG TAKE 1 TABLET BY MOUTH TWICE A DAY FOR 30 DAYS Meclizine HCl 25 MG 1 tablet as needed Orally every 12 hrs 06/27/2024 Fluticasone Furoate 27.5 MCG/SPRAY 2 sprays (1 spray in each nostril) Nasally Once a day 06/07/2024 Tamsulosin HCl 0.4 MG Oral Next Appt Details Follow Up: 1 Week, Reason: T [facility] Provider Name:Jemal Bustillos , 07/30/2025 09:30:00 AM, [address] [place] [address] , [place] [address], [place], [address], Progress Notes * VANESSAHortensiaileDOB:1940 (84 yo M)Acc No.[id number]:10/25/2024 Progress Notes Patient: Antolin AZEVEDO Provider: Sapna Bustillos MD :1940 A ge:84 Y S ex:Male Date:10/25/2024 Address:[address] [place] [address] [address], [place], [id number] Subjective: * Chief Complaints: * F ollow up * HPI: C OVID-19 Screening: Questions H ave you had any new onset fever, chills, cough, congestion, sore throat, shortness of breath, muscle aches? N o * ROS: G eneral/Constitutional: pain o nly normal aches and pains. C hills d enies.?Fatigue a dmits. F ever d enies. E NT: Decreased hearing m ild. R espiratory: Cough n on-productive. C ardiovascular: Chest pain with exertion d enies. D yspnea on exertion?with moderate activity. S hortness of breath w ith exertion. G astrointestinal: Constipation d enies. D ecreased appetite d enies.?Diarrhea R esolved. H eartburn d enies. N ausea d enies. R ectal bleeding d enies. V omiting d enies. H ematology: bruising d enies. p etechiae d enies. S wollen glands n one have been noted. G enitourinary: Frequent urination t wice a night. M usculoskeletal: Muscle aches d enies. P ainful joints d enies. S ciatica d enies. W eakness d enies. S kin: Itching d enies. R dali d enies. S kin lesion(s)?denies. N eurologic: Difficulty speaking d enies. D izziness d enies.?Headache d enies. L ow back pain d enies. P sychiatric: Depressed mood d enies. * Medical History: * Surgical History: b ilateral cataracts left carotid endarterectomy [facility], Dr. Alonso 09/2017Cystoscopy with left ureteral stent subsequently removed, ureterolithiasis ardiac cath with 2 stent placements at [facility] holecystectomy TURP 07/2024 * Hospitalization/Major Diagno stic Procedure: T IA 08/2017Hospitalized at [facility] for prostate surgery * Family History: F ather: 72 yrs, Diabetes, Heart failure, cancer, diagnosed with DM, Cancer. M other: alive 68 yrs, diagnosed with Cancer, DM. Cricket wisdom: alive. S on(s): alive. 2 brother(s) , [...] sons and 2 grandchildren. 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 He smoked cigarettes but does [...] * Vitals: H t: 65, Wt:128, BMI:21.3, BP:166/57, HR:72, Temp:97.9, Ht-cm: 165.1, Wt-k.06. * P ast Orders: Lab:Microalbumin, Random * Collection Date 10/20/2024 06/24/2022 01/13/2021 Collection Time 07:05 AM 08:01 AM 06:20 AM Order Date 10/20/2024 06/24/2022 01/13/2021 Creatinine Urine 51.26 (Ref Range: mg/dL) 82.41 (Ref Range: mg/dL) 97.21 (Ref Range: mg/dL) Microalbumin Urine 417.0 (Ref Range: mg/L) 150.0 (Ref Range: mg/L) 338.0 (Ref Range: mg/L) Microalbum Creatinine Ratio Ur 813.4 H (Ref Range: <30 ug/mg cr) 182.0 (Ref Range: ug/mg cr) 347.7 (Ref Range: ug/mg cr) * Lab:Lipid Panel * Collection Date 10/20/2024 02/14/2024 07/06/2023 Collection Time 07:06 AM 09:03 AM 07:32 AM Order Date 10/20/2024 02/14/2024 07/05/2023 Triglycerides 179 H (Ref Range: <150 mg/dL) 174 H (Ref Range: <150 mg/dL) 98 (Ref Range: <150 mg/dL) Cholesterol 138 (Ref Range: <200 mg/dL) 101 (Ref Range: <200 mg/dL) 117 (Ref Range: <200 mg/dL) LDL Cholesterol Calculated 64 (Ref Range: <100 mg/dL) 38 (Ref Range: <100 mg/dL) 61 (Ref Range: <100 mg/dL) HDL Cholesterol 39 L (Ref Range: >40 mg/dL) 29 L (Ref Range: >40 mg/dL) 37 L (Ref Range: >40 mg/dL) * Lab:Comprehensive [place]. Pane l Fast * Collection Date 10/20/2024 07/06/2023 02/16/2023 Collection Time 07:06 AM 07:32 AM 07:21 AM Order Date 10/20/2024 07/06/2023 02/16/2023 Sodium 139 (Ref Range: 135-145 mmol/L) 137 (Ref Range: 135-145 mmol/L) 139 (Ref Range: 135-145 mmol/L) Bilirubin Total 0.3 (Ref Range: 0.0-1.0 mg/dL) 0.2 (Ref Range: 0.0-1.0 mg/dL) 0.3 (Ref Range: 0.0-1.0 mg/dL) Aspartate Amino Transferase 25 (Ref Range: 5-37 U/L) 17 (Ref Range: 5-37 U/L) 22 (Ref Range: 5-37 U/L) Alanine Aminotransferase 26 (Ref Range: 0-40 U/L) 21 (Ref Range: 0-40 U/L) 29 (Ref Range: 0-40 U/L) Total Protein 7.5 (Ref Range: 6.5-8.0 g/dL) 7.2 (Ref Range: 6.5-8.0 g/dL) 7.4 (Ref Range: 6.5-8.0 g/dL) Albumin Level 4.7 (Ref Range: 3.5-5.0 g/dL) 4.0 (Ref Range: 3.5-5.0 g/dL) 4.4 (Ref Range: 3.5-5.0 g/dL) Alkaline Phosphatase 82 (Ref Range: 39-117 U/L) 92 (Ref Range: 39-117 U/L) 84 (Ref Range: 39-117 U/L) Potassium 5.7 H (Ref Range: 3.3-5.1 mmol/L) 5.3 H (Ref Range: 3.3-5.1 mmol/L) 5.1 (Ref Range: 3.3-5.1 mmol/L) Chloride 103 (Ref Range: 96-108 mmol/L) 100 (Ref Range: 96-108 mmol/L) 104 (Ref Range: 96-108 mmol/L) Carbon Dioxide 25 (Ref Range: 22-29 mmol/L) 27 (Ref Range: 22-29 mmol/L) 27 (Ref Range: 22-29 mmol/L) Anion Gap 17 (Ref Range: 12-20) 15 (Ref Range: 12-20) 13 (Ref Range: 12-20) Blood Urea Nitrogen 36 H (Ref Range: 9-16 mg/dL) 24 H (Ref Range: 9-16 mg/dL) 26 H (Ref Range: 9-16 mg/dL) Creatinine 1.05 (Ref Range: 0.5-1.4 mg/dL) 1.13 (Ref Range: 0.5-1.4 mg/dL) 0.94 (Ref Range: 0.5-1.4 mg/dL) Estimated Glomerular Filt Rate > 60 > 60 > 60 Glucose Fasting 111 H (Ref Range: 60-99 mg/dL) 171 H (Ref Range: 60-99 mg/dL) 150 H (Ref Range: 60-99 mg/dL) Calcium 9.7 (Ref Range: 8.4-10.2 mg/dL) 9.4 (Ref Range: 8.4-10.2 mg/dL) 9.7 (Ref Range: 8.4-10.2 mg/dL) * Lab:Complete Blood Count Aut o Diff * Collection Date 10/20/2024 05/04/2024 02/14/2024 Collection Time 07:06 AM 09:42 AM 09:03 AM Order Date 10/20/2024 05/04/2024 02/14/2024 White Blood Count 10.6 (Ref Range: 4.8-10.8 X10*3/uL) 11.6 H (Ref Range: 4.8-10.8 X10*3/uL) 9.7 (Ref Range: 4.8-10.8 X10*3/uL) Red Blood Count 4.23 L (Ref Range: 4.60-5.80 X10*6/uL) 3.86 L (Ref Range: 4.60-5.80 X10*6/uL) 3.85 L (Ref Range: 4.60-5.80 X10*6/uL) Hemoglobin 13.2 L (Ref Range: 14.0-18.0 g/dl) 12.1 L (Ref Range: 14.0-18.0 g/dl) 12.0 L (Ref Range: 14.0-18.0 g/dl) Hematocrit 39.9 L (Ref Range: 42.0-52.0 %) 36.2 L (Ref Range: 42.0-52.0 %) 37.2 L (Ref Range: 42.0-52.0 %) Mean Corpuscular Volume 94.3 (Ref Range: 80.0-98.0 fL) 93.8 (Ref Range: 80.0-98.0 fL) 96.6 (Ref Range: 80.0-98.0 fL) Mean Corpuscular Hemoglobin 31.2 (Ref Range: 27.0-33.0 pg) 31.3 (Ref Range: 27.0-33.0 pg) 31.2 (Ref Range: 27.0-33.0 pg) Mean Corpuscular HGB Conc 33.1 (Ref Range: 31.0-36.0 g/dl) 33.4 (Ref Range: 31.0-36.0 g/dl) 32.3 (Ref Range: 31.0-36.0 g/dl) Red Cell Distribution Width 13.8 (Ref Range: 11.0-16.0 %) 14.8 (Ref Range: 11.0-16.0 %) 14.6 (Ref Range: 11.0-16.0 %) Platelet Count 346 (Ref Range: 160-400 X10*3/uL) 328 (Ref Range: 160-400 X10*3/uL) 304 (Ref Range: 160-400 X10*3/uL) Mean Platelet Volume 9.9 (Ref Range: 9.4-12.4 fL) 10.0 (Ref Range: 9.4-12.4 fL) 10.2 (Ref Range: 9.4-12.4 fL) Neutrophils Percent Auto 51.1 (Ref Range: 45-73 %) 72.8 (Ref Range: 45-73 %) 61.5 (Ref Range: 45-73 %) Imm Gran Pct Auto 0.4 (Ref Range: 0.0-0.4 %) 0.5 H (Ref Range: 0.0-0.4 %) 0.5 H (Ref Range: 0.0-0.4 %) Lymphocytes Percent Auto 33.6 (Ref Range: 20-40 %) 17.8 L (Ref Range: 20-40 %) 26.6 (Ref Range: 20-40 %) Monocytes Percent Auto 10.5 (Ref Range: 2-11 %) 6.1 (Ref Range: 2-11 %) 8.5 (Ref Range: 2-11 %) Eosinophils Percent Auto 4.0 (Ref Range: 0-4 %) 2.5 (Ref Range: 0-4 %) 2.5 (Ref Range: 0-4 %) Basophils Percent Auto 0.4 (Ref Range: 0-2 %) 0.3 (Ref Range: 0-2 %) 0.4 (Ref Range: 0-2 %) NRBC Pct Auto 0.0 (Ref Range: 0.0-0.2 /100WBC) 0.0 (Ref Range: 0.0-0.2 /100WBC) 0.0 (Ref Range: 0.0-0.2 /100WBC) Neutrophils Absolute Auto 5.4 (Ref Range: 2.0-8.3 x10*3/uL) 8.5 H (Ref Range: 2.0-8.3 x10*3/uL) 6.0 (Ref Range: 2.0-8.3 x10*3/uL) Imm Gran Abs Auto 0.04 H (Ref Range: 0.00-0.03 X10*3/uL) 0.06 H (Ref Range: 0.00-0.03 X10*3/uL) 0.05 H (Ref Range: 0.00-0.03 X10*3/uL) Lymphocytes Absolute Auto 3.6 (Ref Range: 1.2-4.9 X10*3/uL) 2.1 (Ref Range: 1.2-4.9 X10*3/uL) 2.6 (Ref Range: 1.2-4.9 X10*3/uL) Monocytes Absolute Auto 1.1 (Ref Range: 0.1-1.2 X10*3/uL) 0.7 (Ref Range: 0.1-1.2 X10*3/uL) 0.8 (Ref Range: 0.1-1.2 X10*3/uL) Eosinophils Absolute Auto 0.4 (Ref Range: 0.0-0.4 X10*3/uL) 0.3 (Ref Range: 0.0-0.4 X10*3/uL) 0.2 (Ref Range: 0.0-0.4 X10*3/uL) Basophils Absolute Auto 0.0 (Ref Range: 0.0-0.2 X10*3/uL) 0.0 (Ref Range: 0.0-0.2 X10*3/uL) 0.0 (Ref Range: 0.0-0.2 X10*3/uL) NRBC Abs Auto 0.000 (Ref Range: 0.0-0.012 X10*3/uL) 0.000 (Ref Range: 0.0-0.012 X10*3/uL) 0.000 (Ref Range: 0.0-0.012 X10*3/uL) * Lab:Hemoglobin A1c * Collection Date 10/20/2024 07/06/2023 05/23/2023 Collection Time 07:06 AM 07:32 AM 07:04 AM Order Date 10/20/2024 07/05/2023 05/23/2023 Hemoglobin A1c % 7.4 H (Ref Range: <6.0 %) 7.8 H (Ref Range: <6.0 %) 7.8 H (Ref Range: <6.0 %) Estimated Average Glucose 166 (Ref Range: mg/dL) 177 (Ref Range: mg/dL) 177 (Ref Range: mg/dL) * Lab:URINE DIP STICK * Collection Date 07/28/2024 [...] -) postitive Menstrating NR N/A n/a * Examination: G eneral Examination: GENERAL APPEARANCE: p leasant, well nourished, well developed, in no acute distress, calm and relaxed, elderly man. HEAD: a traumatic, normocephalic. EYES: e marcus, perrla, anicteric, conjugate. EARS: n ormal. NOSE: s eptum intact. ORAL CAVITY: n ormal, unremarkable. NECK/THYROID: n o jugular venous distention, no carotid bruit, thyroid normal. LYMPH NODES: n o enlarged lymph nodes,spleen normal. SKIN: n o suspicious lesions, anicteric. HEART: n o clicks, gallops, murmurs, or rubs, regular rhythm, S1, S2 normal, no s3, or vascular bruits. LUNGS: , diminished breath sounds throughout, rhonchi on the RIGHT, rhonchi on the LEFT, scattered inspiratory wheezes. BREASTS: no masses palpable bilaterally. ABDOMEN: b owel sounds normal, no ascites, no organomegaly, no mass. RECTAL EXAM: n ot examined. MUSCULOSKELETAL: e xtremities unremarkable, no clubbing, cyanosis or edema, Decreased range of motion lumbar spine. PERIPHERAL PULSES: n ormal. NEUROLOGIC: a lert and oriented, cranial nerves 2-12 grossly intact, deep tendon reflexes 2+ symmetrical, motor strength normal upper and lower extremities, sensory exam intact. PSYCH: a lert, oriented. Assessment: * Assessment: 1. C OPD (chronic obstructive pulmonary disease) - J44.9 (Primary) N otes :He continues to smoke about 10 cigarettes daily. He is comfortable breathing room air at rest. At this point he does not need home oxygen. We have discussed smoking cessation strategies at length today. He was offered medications and we'll consider it. 2 . T obacco dependence - F17.200 N otes :He continues to smoke about 10 cigarettes per day. I discussed smoking cessation with him at great length today. 3 . H yperkalemia - E87.5 N otes :His potassium level was 5.7. He was sent to repeat it. On repeat it was 5.2. 4 . H earing loss, bilateral - H91.93 N otes :There has been no change in his hearing. He did quite well over the telephone today. 5 . T ype 2 diabetes mellitus without complications - E11.9 N otes :He has been continued on his current regimen without change. His glucose levels have been acceptable. He has been compliant with his treatment and diet. 6 . P ulmonary nodule - R91.1 N otes :He has a 7 mm right lower lobe nodule which will be followed carefully. 7 . L eft carotid artery stenosis - I65.22 N otes :He has had an endarterectomy and now has a good pulse in the neck. 8 . B enign prostatic hyperplasia, unspecified whether lower urinary tract symptoms present - N40.0 N otes :He rises from sleep 3 or 4 times a night to urinate. We have discussed lifestyle modification as a way to reduce nocturia. A prostate procedure has been scheduled by his urologist in the near future. 9 . D upuytrens contracture - M72.0 N otes :He has mild to moderate bilateral Dupuytren's contracture in the palm of each hand. It has become painful in the left hand recently. Plan: * Treatment: 2. H yperkalemia L AB: Electrolytes (Collection Date & Time - 10/25/2024 10:30 AM) Value Reference Range S odium 137 135-145 - mmol/L * P otassium 5.2 H 3.3-5.1 - mmol/L * C hloride 102 96-108 - mmol/L * C arbon Dioxide 27 22-29 - mmol/L * A nion Gap 13 12-20 - 3.?Others? Continue metFORMIN HCl Tablet, 1000 MG, TAKE 1 TABLET BY MOUTH TWICE A DAY FOR 30 DAYS.?? * Procedure Codes: * Preventive Medicine: Counseling: C are goal follow-up plan: Counseling for abnormal BMI given Y es Below Normal BMI Follow-up D ietary education for weight gain, Dietary management education, guidance, and counseling, Feeding regime, Lifestyle education regarding diet, Nutrition / feeding management, Prescribed diet education, Special diet education, Intervention, Order not done: Medical or Other reason not done S moking/Tobacco Use Patient counseled on the dangers of tobacco use and urged to quit. 0 10/25/2024 Patient Lifestyle Goals P atient does not want to quit Treatment Goals C ut down by 1 cigarette a week, Set a quit date Barriers S tress, Social smoker, Not interested in quitting Self-Management Plan M raudel a plan to cut down number of cigarettes over time and set a date to work towards quitting DM Care Plan: P atient Lifestyle Goals P atient wants to be able to manage diabetes without too much effort. T reatment Goals H bA1C < 7.0, Blood Sugars less than < 115. B arriers n o barriers. S elf-Managment Goals T raudel blood sugars twice daily and keep a log. Bring log in to next appointment. COPD Care Plan: P atient Lifestyle Goals B e able to be more active with friends and family, Reduce number of ED and hospitalizations, Relieve symptoms and improve quality of life. T reatment Goals Q uit Smoking, Exercise to help whole body, including lungs, Eat a nutritious diet and increase water consumption to 6-8 glasses a day.? B arriers n o barriers. S elf-Managment Goals M raudel a plan for quitting smoking, Get an air purifier for the rooms you are in the most, Eat a healthy diet. * Follow Up: 1 Week (Reason: Telehealth) * Images: * Sign off status: Completed true * Provider: Sapna Bustillos MD Date: 0 10/25/2024 Generated for Abner camara/Vee/Gloriasmitting on: 07/19/2024 04:29 PM EST History and Physical Notes * [...] EYES: eomi, perrla, anicte estela, conjugate EARS: normal NOSE: septum intact NECK/THYROID: no jugular venous di stention, no carotid bruit, thyroid normal HEART: no clicks, gallops, murmurs, or rubs, regular rhythm, S1, S2 normal, no s3, or vascular bruits LUNGS: , diminished breath sounds throughout, rhonchi on the RIGHT, rhonchi on the LEFT, scattered inspiratory wheezes ABDOMEN: bowel sounds normal, no ascites, no organomegaly, no mass NEUROLOGIC: alert and oriented, cranial nerves 2-12 grossly intact, deep tendon reflexes 2+ symmetrical, motor strength normal upper and lower extremities, sensory exam intact SKIN: no suspicious lesion s, anicteric PERIPHERAL PULSES: normal BREASTS: no masses palpable b ilaterally MUSCULOSKELETAL: extremities unremark able, no clubbing, cyanosis or edema, Decreased range of motion lumbar spine LYMPH NODES: no enlarged lymph no ines,spleen normal RECTAL EXAM: not examined PSYCH: alert, oriented ORAL CAVITY: normal, unremarkable
--- OUTSIDE RECORDS SUMMARY | 2024-10-31 13:00 | XMS_ITS ---
Author Organization Jemal Bustillos III, MD Address [address] [place] [address] [place] [address] Care Team Providers Care Respiratory Care Program Director Name Role Phone Dr. Jemal Bustillos III Primary Care Provider [phone] REASON FOR VISIT Telehealth Social History Sex Assigned At : Social History Observation Description Sex Assigned At Male Encounters Encounter Location Date Provider Diagnosis Jemal Bustillos III, MD [address] [place] [address] [place] [address] 10/31/2024 Jemal Bustillos Plan Of Treatment Next Appt Details Provider Name:Jemal Bustillos , 07/30/2025 09:30:00 AM, [address] [place] [address] [place], [phone], Progress Notes * Beck PERDOMOOB:1940 (85 yo M)Acc No.[id number]:10/31/2024 Patient: Antolin AZEVEDO Provider: Sapna Bustillos MD :1940 A ge:84 Y S ex:Male Date:10/31/2024 Address:[address] [place] [address], [place], [id number] Subjective: * Chief Complaints: * 1 . Telehealth. * Medical History: Objective: * Vitals: Assessment: Plan: * Treatment: * Images: * The named appointment provid er may or may not be the originator of this progress note, and it is not deemed complete until electronically signed by the appointment provider. Sign off status: Pending * Provider: Sapna Bustillos MD Date: 0 10/31/2024 Generated for Abner camara/Vee/Daniellaitting on: 07/19/2024 04:29 PM EST
--- OUTSIDE RECORDS SUMMARY | 2024-12-26 04:30 | XMS_ITS ---
Author Organization Jemal Bustillos III, MD Address [address] [place] [address] [place] [address] Care Team Providers Care Craniologist Name Role Phone Dr. 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 Medications Medication SIG (Take, Route, Frequency, Duration) Notes Start Date End Date Status Meclizine HCl 25 MG 1 tablet as needed Orally every 12 hrs 06/27/2024 Active Loratadine 10 MG 1 tablet Orally Once a day Active Tamsulosin HCl 0.4 MG Oral Active Pioglitazone HCl 15 MG 1 tablet Orally Once a day 04/06/2024 Active Fluticasone Furoate 27.5 MCG/SPRAY 2 sprays (1 spray in each nostril) Nasally Once a day 06/07/2024 Active predniSONE 20 MG 1 tablet with [...] 1 tablet Orally Once a day Active Pravastatin Sodium 20 MG TAKE 1 TABLET BY MOUTH EVERYDAY AT BEDTIME Oral Active Omeprazole 20 MG 1 capsule 30 minutes before morning meal Orally twice a day 07/23/2023 Active Lisinopril 30 MG 1 tablet Orally Once a day 04/14/2023 Active Metoprolol Succinate ER 25 MG 1 tablet Orally Once a day 07/08/2023 Active amLODIPine Besylate 10 MG 1 tablet Orally Once a day Active metFORMIN HCl 1000 MG TAKE 1 TABLET BY MOUTH TWICE A DAY FOR 30 DAYS Active Aspirin Adult Low Dose 81 MG 1 tablet Orally Once a day Active glyBURIDE 5 MG TAKE 2 TABLETS BY MOUTH EVERY MORNING Patient has Insurance [place] approval from 07/05/2024- Active Social History Tobacco Use: Social History [...] e smoker (20-39 cigs/day) Vital Signs Temperature 97.2 degrees Fahrenheit 12/27/19 25 Blood pressure systolic 140 mm Hg 12/27/19 25 Blood pressure diastolic 68 mm Hg 025 Heart Rate 72 /min 12/26/2024 Height 65 in 12/26/2024 Weight 125 lbs 12/26/2024 BMI 20.8 kg/m2 12/26/2024 Encounters Encounter Location Date Provider Diagnosis Jemal Bustillos III, MD [address] [place] [address] [place] [address] 12/26/2024 Jemal Bustillos Tobacco dependence F17.200 ; COPD (chronic obstructive pulmonary disease) J44.9 ; Type 2 diabetes mellitus without complications E11.9 ; Hearing loss, bilateral H91.93 ; GERD without esophagitis K21.9 ; Lumbar spine pain M54.5 and Dupuytrens contracture M72.0 Assessments Encounter Date Diagnosis (ICD Code) Assessment Notes Treat ment Notes Treatment Clinical Notes 12/26/2024 Tobacco dependence (ICD-10 - F17.200) He continues to smoke about 20 cigarettes per day. I discussed smoking cessation with him at great length today. 12/26/2024 COPD (chronic obstructive pulmonary disease) (ICD-10 - J44.9) He continues to smoke about 10 cigarettes daily. He is comfortable breathing room air at rest. At this point he does not need home oxygen. We have discussed smoking cessation strategies at length today. He was offered medications and we'll consider it. 12/26/2024 Type 2 diabetes mellitus without complications (ICD-10 - E11.9) His hemoglobin A1c has improved from 7.8 down to 7.4. Current therapy was continued with only one metformin tablet daily. 12/26/2024 Hearing loss, bilateral (ICD-10 - H91.93) There has been no change in his hearing. He did quite well over the telephone today. 12/26/2024 GERD without esophagitis (ICD-10 - K21.9) His reflux symptoms have been well controlled with medication. He has been sleeping through the night lately. 12/26/2024 Lumbar spine pain (ICD-10 - M54.5) The back pain is minimal at this time. I recommended no heavy lifting. His current regimen. We'll continue. 12/26/2024 Dupuytrens contracture (ICD-10 - M72.0) He has mild to moderate bilateral Dupuytren's contracture in the palm of each hand. It has become painful in the left hand recently. Plan Of Treatment Medication Medication Name Sig Start Date Stop Date Notes Meclizine HCl 25 MG 1 tablet as needed Orally every 12 hrs 06/27/2024 Loratadine 10 MG 1 tablet Orally Once a day Tamsulosin HCl 0.4 MG Oral Pioglitazone HCl 15 MG 1 tablet Orally O nce a day 04/06/2024 Fluticasone Furoate 27.5 MCG/SPRAY 2 sprays (1 spray in each nostril) Nasally Once a day 06/07/2024 predniSONE 20 MG 1 tablet with food [...] MG 1 tablet Orally Once a day Pravastatin Sodium 20 MG TAKE 1 TABLET BY MOUTH EVERYDAY AT BEDTIME Oral Omeprazole 20 MG 1 capsule 30 minutes before morning meal Orally twice a day 07/23/2023 Lisinopril 30 MG 1 tablet Orally Once a day 04/14/2023 Metoprolol Succinate ER 25 MG 1 tablet Orally Once a day 07/08/2023 amLODIPine Besylate 10 MG 1 tablet Orally Once a day metFORMIN HCl 1000 MG TAKE 1 TABLET BY MOUTH TWICE A DAY FOR 30 DAYS Aspirin Adult Low Dose 81 MG 1 tablet Orally Once a day glyBURIDE 5 MG TAKE 2 TABLETS BY MOUTH EVERY MORNING Patient has Insurance [place] approval from 07/05/2024-05/30/2025 Pending Test Test Name Order Date PROFILE, RANDOM (COMPREHENSIVE METABOLIC ) 12/26/2024 CBC w DIFF 12/26/2024 Microalbumin, Random 12/26/2024 Hemoglobin A1c 12/26/2024 Next Appt Details Follow Up: 3 Months, Reason: OV Provider Name:Jemal Bustillos , 07/30/2025 09:30:00 AM, [address] [place] [address] , [place] [address], [place], [address], Progress Notes * Hortensia PERDOMOileDOB:1940 (84 yo M)Acc No.[id number]:12/26/2024 Progress Notes Patient: Antolin AZEVEDO Provider: Sapna Bustillos MD :1940 A ge:84 Y S ex:Male Date:12/26/2024 Address:[address] [place] [id number] Subjective: * Chief Complaints: * D iabetesHearing lossCOPDHyperlipidemiaLow back painGERDBenign prostatic hypertrophyTobacco dependenceCoronary artery disease2 port friends contractor * HPI: C OVID-19 Screening: He returns for medical management. He continues to be short of breath with exertion but is comfortable at rest. He continues to smoke a package of cigarettes per day. He says his diabetes has been controlled but taking 2 metformin make him sick so he only takes 1. He admits to nocturia 3 times a night sometimes. He has had no chest pain. He continues to live independently at home. Questions H ave you had any new onset fever, chills, cough, congestion, sore throat, shortness of breath, muscle aches? N o * ROS: G eneral/Constitutional: pain o nly normal aches and pains. C hills d enies.?Fatigue a dmits. F ever d enies. E NT: Decreased hearing i n both ears. R espiratory: Cough n on-productive. C ardiovascular: Chest pain with exertion d enies. D yspnea on exertion?with moderate activity. S hortness of breath w ith exertion. G astrointestinal: Constipation o ccasional. D ecreased appetite d enies. D iarrhea d enies. H eartburn c ontrolled with medications. N ausea d enies. R ectal bleeding [...] enies.?Headache d enies. L ow back pain t hat is chronic. P sychiatric: Depressed mood d enies. * Medical History: * Surgical History: b ilateral cataracts left carotid endarterectomy [facility], Dr. Alonso 09/2017Cystoscopy with left ureteral stent subsequently removed, ureterolithiasis ardiac cath with 2 stent placements at [facility] holecystectomy TURP 07/2024 * Hospitalization/Major Diagno stic Procedure: T IA 08/2017Hospitalized at [facility] for prostate surgery * Family History: F ather: 72 yrs, Diabetes, Heart failure, cancer, diagnosed with Cancer, DM. M other: alive 68 yrs, diagnosed with DM, Cancer. Cricket wisdom: alive. S on(s): alive. 2 [...] sons and 2 grandchildren. 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 He smoked cigarettes but does not drink alcohol or take drugs. He has no occupational exposures and no travel history. Smokin.5 packs per day Smoking: Patient smokes 15-20 cigarettes a day. * Medications: T akingamLODIPine Besylate 10 MG Tablet 1 tablet Orally Once a day glyBURIDE 5 MG Tablet TAKE 2 TABLETS BY MOUTH EVERY MORNING , Notes to Pharmacist: Patient has Insurance [place] approval from 07/05/2024-05/30/2025metFORMIN HCl 1000 MG Tablet TAKE 1 TABLET BY MOUTH TWICE A DAY FOR 30 DAYS Aspirin Adult Low Dose 81 MG Tablet Delayed Release 1 tablet Orally Once a day Lisinopril 30 MG Tablet 1 tablet Orally Once a day Pravastatin Sodium 20 MG Tablet TAKE 1 TABLET BY MOUTH EVERYDAY AT BEDTIME Oral Taking amLODIPine Besylate 10 MG Tablet 1 tablet Orally Once a day Taking glyBURIDE 5 MG Tablet TAKE 2 [...] 1 tablet Orally Once a day Taking Pravastatin Sodium 20 MG Tablet TAKE 1 TABLET BY MOUTH EVERYDAY AT BEDTIME Oral Not-Taking/PRNMetoprolol Succinate ER 25 MG Tablet Extended Release [...] Medication List reviewed and reconciled with the patientNot-Taking/PRN Metoprolol Succinate ER 25 MG Tablet Extended Release 24 Hour 1 tablet Orally Once a day Not-Taking/PRN Omeprazole 20 MG Capsule Delayed Release 1 capsule 30 minutes before morning meal Orally twice a day Not-Taking/PRN Atorvastatin Calcium 20 MG Tablet 1 tablet Orally Once a day Not-Taking/PRN predniSONE 20 MG Tablet 1 tablet with food or milk Orally Once a day Not-Taking/PRN Albuterol Sulfate HFA 108 (90 Base) MCG/ACT Aerosol Solution 1 puff as needed Inhalation every 4 hrs Not-Taking/PRN Famotidine 20 MG Tablet 1 tablet at bedtime as needed Orally Once a day Not-Taking/PRN Clopidogrel Bisulfate 75 MG Tablet 1 tablet Orally Once a day Not-Taking/PRN Loratadine 10 MG Tablet 1 tablet Orally Once a day Not-Taking/PRN Tamsulosin HCl 0.4 MG Capsule Oral Not-Taking/PRN Pioglitazone HCl 15 MG Tablet 1 tablet Orally Once a day Not-Taking/PRN Fluticasone Furoate 27.5 MCG/SPRAY Suspension 2 sprays (1 spray in each nostril) Nasally Once a day Not-Taking/PRN Meclizine HCl 25 MG Tablet 1 tablet as needed Orally every 12 hrs Medication List reviewed and reconciled with the patient * Allergies: N o Known Drug Allergyno[Allergies Verified] Objective: * Vitals: H t: 65, Wt:125, BMI:20.8, BP:140/68, HR:72, Temp:97.2, Ht-cm: 165.1, Wt-k.7. * P ast Orders: Lab:Microalbumin, Random * [...] L (Ref Range: >40 mg/dL) * Lab:Comprehensive [place]. Pane l Fast * Collection Date 10/20/2024 [...] Range: mg/dL) 177 (Ref Range: mg/dL) * Examination: G eneral Examination: GENERAL APPEARANCE: p leasant, well nourished, well developed, in no acute distress, calm and relaxed: elderly man. HEAD: a traumatic, normocephalic. EYES: e marcus, perrla, anicteric, conjugate. EARS: N ormal anatomy with hearing loss, hearing aid in the right ear no cerumen. NOSE: s eptum intact. ORAL CAVITY: n ormal, unremarkable. NECK/THYROID: n o jugular venous distention, no carotid bruit, thyroid normal. LYMPH NODES: n o enlarged lymph nodes,spleen normal. SKIN: n o suspicious lesions, anicteric. HEART: n o clicks, gallops, murmurs, or rubs, regular rhythm, S1, S2 normal, no s3, or vascular bruits. LUNGS: : diminished breath sounds throughout: scattered inspiratory wheezes. BREASTS: no masses palpable bilaterally. ABDOMEN: b owel sounds normal, no ascites, no organomegaly, no mass. RECTAL EXAM: n ot examined. MUSCULOSKELETAL: e xtremities unremarkable, no clubbing, cyanosis or edema. PERIPHERAL PULSES: n ormal. NEUROLOGIC: a lert and oriented, cranial nerves 2-12 grossly intact, deep tendon reflexes 2+ symmetrical, motor strength normal upper and lower extremities, sensory exam intact. PSYCH: a lert, oriented: cooperative with exam: cognitive function intact: good eye contact: speech clear: thought process logical, goal directed. ? Assessment: * Assessment: 1. C OPD (chronic [...] N otes :He continues to smoke about 20 cigarettes per day. I discussed smoking cessation with him at great length today. 3 . T ype 2 diabetes mellitus without complications - E11.9 N otes :His hemoglobin A1c has improved from 7.8 down to 7.4. Current therapy was continued with only one metformin tablet daily. 4 . H earing loss, bilateral - H91.93 N otes :There has been no change in his hearing. He did quite well over the telephone today. 5 . G ERD without esophagitis - K21.9 N otes :His reflux symptoms have been well controlled with medication. He has been sleeping through the night lately. 6 . L umbar spine pain - M54.5 N otes :The back pain is minimal at this time. I recommended no heavy lifting. His current regimen. We'll continue. 7 . D upuytrens contracture - M72.0 N otes :He has mild to moderate bilateral Dupuytren's contracture in the palm of each hand. It has become painful in the left hand recently. Plan: * Treatment: 2. T obacco dependence Continue glyBURIDE Tablet, 5 MG, TAKE 2 TABLETS BY MOUTH EVERY MORNING, Notes to Pharmacist: Patient has Insurance [place] approval from 07/05/2024-05/30/2025; C ontinue Aspirin Adult Low Dose Tablet Delayed Release, 81 MG, 1 tablet, Orally, Once a day; C ontinue Lisinopril Tablet, 30 MG, 1 tablet, Orally, Once a day; C ontinue Metoprolol Succinate ER Tablet Extended Release 24 Hour, 25 MG, 1 tablet, Orally, Once a day. 3. T ype 2 diabetes mellitus without complications L AB: PROFILE, RANDOM (COMPREHENSIVE METABOLIC) L AB: CBC w DIFF L AB: Microalbumin, Random L AB: Hemoglobin A1c 4. O thers Continue metFORMIN HCl Tablet, 1000 MG, TAKE 1 TABLET BY MOUTH TWICE A DAY FOR 30 DAYS. * Procedure Codes: * Preventive Medicine: DM Care Plan: P atient Lifestyle Goals P atient wants to be able to manage diabetes without too much effort. T reatment Goals B lood Sugars less than < 115, HbA1C < 7.0. B arriers n o barriers. S elf-Managment Goals I ncrease exercise to 3 times a week for 30 mins, Stop drinking juice and/or soda, replace with more water. * Follow Up: 3 Months (Reason: OV) * Images: * Sign off status: Completed true * Provider: Sapna Bustillos MD Date: 0 12/26/2024 Generated for Abner camara/Vee/Daniellaitting on: 07/19/2024 04:30 PM EST History and Physical Notes * HPI (History of Present Illness) Category Sub-Category Detail Notes COVID-19 Screening Questions Have you had any new onset fever, chills, cough, congestion, sore throat, shortness of breath, muscle aches?: No Examination Category Sub-Category Detail Notes General Examination GENERAL APPEARANCE: pleasant , well nourished, well developed, in no acute distress, calm and relaxed: elderly man HEAD: atraumatic, normocep halic EYES: eomi, perrla, anicte estela, conjugate EARS: Normal anatomy with hearing loss, hearing aid in the right ear no cerumen NOSE: septum intact NECK/THYROID: no jugular venous di stention, no carotid bruit, thyroid normal HEART: no clicks, gallops, murmurs, or rubs, regular rhythm, S1, S2 normal, no s3, or vascular bruits LUNGS: : diminished breath sounds throughout: scattered inspiratory wheezes ABDOMEN: bowel sounds normal, [...] normal RECTAL EXAM: not examined PSYCH: alert, oriented: logistics coordinator perative with exam: cognitive function intact: good eye contact: speech clear: thought process logical, goal directed ORAL CAVITY: normal, unremarkable
--- OUTSIDE RECORDS SUMMARY | 2025-02-16 10:30 | XMS_ITS ---
Author Organization Jemal Bustillos III, MD Address [address] [place] [address] [place] [address] Care Team Providers Care Institution Librarian Name Role Phone Dr. Jemal Bustillos III Primary Care Provider [phone] Allergies Allergen (clinical drug ingredient) Drug/Non Drug Allergy documented on EMR Reaction Allergy Type Onset Date Status No Known Drug Allergy Unknown Drug Allergy Active Reason For Referral Reason Consult and Treat Follow up PAD Needs Carotid U/S Diagnosis 1 Peripheral arterial disease (I73.9) Referral Organization Jemal Busitllos III, MD Referring Provider First Name Jemal Referring Provider Last Name Tresas Referring Provider Speciality Internal M edicine Referred Provider [facility], [facility] Referred Provider Specialty Unknown General Notes Fiona Rossi 02/19/2025 09:20:01 AM > Cover sheet, referral and progress note faxed.Aaliyah Suzanne CMA 02/20/2025 09:23:34 AM >I called [phone] press 6 spoke to Edel shankar patient appt with Tesha Alberto for 03/14/2025 at 2pm information called and mailed to patient Referral Priority Routine Referral Appointment Date 03/14/2025 REASON FOR VISIT Ureterolithiasis, Coronary artery disease, Diabetes, COPD, Hyperlipidemia, GERD, Benign prostatic hypertrophy, Dupuytren's contracture Medications Medication SIG (Take, Route, Frequency, Duration) Notes Start Date End Date Status Ondansetron HCl 4 MG 1 tablet Orally every six hours if needed for 10 days 02/16/2025 Active Solifenacin Succinate 5 MG Oral Active Pravastatin Sodium 20 MG TAKE 1 TABLET BY MOUTH EVERYDAY AT BEDTIME Oral Active amLODIPine Besylate 10 MG 1 tablet Orally Once a day Active Lisinopril 30 MG 1 tablet Orally Once a day 04/14/2023 Active Aspirin Adult Low Dose 81 MG 1 tablet Orally Once a day Active metFORMIN HCl 1000 MG TAKE 1 TABLET BY MOUTH TWICE A DAY FOR 30 DAYS Active glyBURIDE 5 MG TAKE 2 TABLETS [...] e smoker (20-39 cigs/day) Vital Signs Temperature 98.2 degrees Fahrenheit 02/17/20 25 Blood pressure systolic 137 mm Hg 02/17/20 25 Blood pressure diastolic 64 mm Hg 025 Heart Rate 91 /min 02/16/2025 Height 65 in 02/16/2025 Weight 126 lbs 02/16/2025 BMI 20.97 kg/m2 02/16/2025 Encounters Encounter Location Date Provider Diagnosis Jemal Bustillos III, MD [address] [place] [address] [address] [place], [place] [id number] 02/16/2025 Jemal Bustillos Tobacco dependence F17.200 ; COPD (chronic obstructive pulmonary disease) J44.9 ; Hearing loss, bilateral H91.93 ; Essential hypertension I10 ; Type 2 diabetes mellitus without complications E11.9 ; Pulmonary nodule R91.1 ; Calculus of ureter N20.1 and Dupuytrens contracture M72.0 Assessments Encounter Date Diagnosis (ICD Code) Assessment Notes Treat ment Notes Treatment Clinical Notes 02/16/2025 Tobacco dependence (ICD-10 - F17.200) He continues to smoke about 20 cigarettes per day. I discussed smoking cessation with him at great length today. 02/16/2025 COPD (chronic obstructive pulmonary disease) (ICD-10 - J44.9) He continues to smoke about 10 cigarettes daily. He is comfortable breathing room air at rest. At this point he does not need home oxygen. We have discussed smoking cessation strategies at length today. He was offered medications and we'll consider it. 02/16/2025 Hearing loss, bilateral (ICD-10 - H91.93) There has been no change in his hearing. He did quite well over the telephone today. 02/16/2025 Essential hypertension (ICD-10 - I10) His blood pressure is currently stable at 142/62 and no change in his regimen was necessary. 02/16/2025 Type 2 diabetes mellitus without complications (ICD-10 - E11.9) His hemoglobin A1c has improved from 7.8 down to 7.4. Current therapy was continued with only one metformin tablet daily. 02/16/2025 Pulmonary nodule (ICD-10 - R91.1) He has a 7 mm right lower lobe nodule which will be followed carefully. 02/16/2025 Calculus of ureter (ICD-10 - N20.1) A stent has been inserted and then removed. The stone was removed and was calcium oxalate. It is free of pain at this time, but weakened and has lost 5 pounds with his recent surgery and hospitalization. 02/16/2025 Dupuytrens contracture (ICD-10 - M72.0) He has mild to moderate bilateral Dupuytren's contracture in the palm of each hand. It has become painful in the left hand recently. Plan Of Treatment Medication Medication Name Sig Start Date Stop Date Notes Ondansetron HCl 4 MG 1 tablet Orally every six hours if needed for 10 days 02/16/2025 Solifenacin Succinate 5 MG Oral Pravastatin Sodium 20 MG TAKE 1 TABLET BY MOUTH EVERYDAY AT BEDTIME Oral amLODIPine Besylate 10 MG 1 tablet Orally Once a day Lisinopril 30 MG 1 tablet Orally Once a day 04/14/2023 Aspirin Adult Low Dose 81 MG 1 tablet Orally Once a day metFORMIN HCl 1000 MG TAKE 1 TABLET BY MOUTH TWICE A DAY FOR 30 DAYS glyBURIDE 5 MG TAKE 2 TABLETS BY MOUTH EVERY MORNING Patient has Lorrainec ezequiel STEWART approval from 07/05/2024-05/30/2025 Referrals Referral Date Details 02/16/2025 02/16/2025, Consult and Treat Follow up PAD Needs Carotid U/S, Services - [facility] Next Appt Details Follow Up: 3 Weeks, Reason: ov Provider Name:Jemal Bustillso , 07/30/2025 09:30:00 AM, [address] [place] [address] , [place] [address], [place], [phone], Progress Notes * Hortensia MENDEZileDOB:1940 (84 yo M)Acc No.[id number]:02/16/2025 Progress Notes Patient: Antolin AZEVEDO Provider: Sapna Bustillos MD :1940 A ge:84 Y S ex:Male Date:02/16/2025 Address:[address] [place], [place] [id number] Subjective: * Chief Complaints: * U reterolithiasisCoronary artery diseaseDiabetesCOPDHyperlipidemiaGERDBenign prostatic hypertrophyDupuytren's contracture * HPI: C OVID-19 Screening: He has recently been seen by cardiology who wanted to add hydralazine to his regimen for elevated blood pressure. He declined saying he wanted to speak with me first. He has also recently been seen for kidney stones by the urology service. He is not experiencing hearing. Symptoms are renal colic. At this time. He continues to feel diffusely weak but has no chest pain. H e is short of breath with minimal exertion. He has seen by urology for a ureterolithiasis. On January 22, 2025. An ultrasound showed bilateral nephrolithiasis. He is scheduled to see them again in the future to deal with this. He has also occasionally noted an upset stomach with a bloated feeling. His urologist found blood in his urine and evaluation is in progress. His examination showed bilateral carotid bruits which are known. He has not seen vascular surgery in over a year and was referred back for routine follow-up. He was given a prescription for ondansetron for his nausea. Questions H ave you had any new onset fever, chills, cough, congestion, sore throat, shortness of breath, muscle aches? N o * ROS: G eneral/Constitutional: pain A rthritis neck, shoulders and hands, intermittent ureteral colic. C hills d enies. F atigue a dmits. F ever d enies. ? E NT: Decreased hearing i n both ears. R espiratory: Cough n on-productive. C ardiovascular: Chest pain with exertion d enies. D yspnea on exertion?with mild activity. S hortness of breath w ith [...] Muscle aches d enies. P ainful joints N venu, shoulders and knees. S ciatica d enies. W eakness t hat is generalized. S kin: Itching d enies. 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 He smoked cigarettes but does [...] Tablet 1 tablet Orally Once a day amLODIPine Besylate 10 MG Tablet 1 tablet Orally Once a day Pravastatin Sodium 20 MG Tablet TAKE 1 TABLET BY MOUTH EVERYDAY AT BEDTIME Oral Solifenacin Succinate 5 MG Tablet Oral Taking glyBURIDE 5 MG Tablet TAKE 2 [...] 1 tablet Orally Once a day Taking amLODIPine Besylate 10 MG Tablet 1 tablet Orally Once a day Taking Pravastatin Sodium 20 MG Tablet TAKE 1 TABLET BY MOUTH EVERYDAY AT BEDTIME Oral Taking Solifenacin Succinate 5 MG Tablet Oral DiscontinuedMetoprolol Succinate ER 25 MG Tablet Extended Release [...] Medication List reviewed and reconciled with the patientDiscontinued Metoprolol Succinate ER 25 MG Tablet Extended Release 24 Hour 1 tablet Orally Once a day Discontinued Omeprazole 20 MG Capsule Delayed Release 1 capsule 30 minutes before morning meal Orally twice a day Discontinued Atorvastatin Calcium 20 MG Tablet 1 tablet Orally Once a day Discontinued predniSONE 20 MG Tablet 1 tablet with food or milk Orally Once a day Discontinued Albuterol Sulfate HFA 108 (90 Base) MCG/ACT Aerosol Solution 1 puff as needed Inhalation every 4 hrs Discontinued Famotidine 20 MG Tablet 1 tablet at bedtime as needed Orally Once a day Discontinued Clopidogrel Bisulfate 75 MG Tablet 1 tablet Orally Once a day Discontinued Loratadine 10 MG Tablet 1 tablet Orally Once a day Discontinued Tamsulosin HCl 0.4 MG Capsule Oral Discontinued Pioglitazone HCl 15 MG Tablet 1 tablet Orally Once a day Discontinued Fluticasone Furoate 27.5 MCG/SPRAY Suspension 2 sprays (1 spray in each nostril) Nasally Once a day Discontinued Meclizine HCl 25 MG Tablet 1 tablet as needed Orally every 12 hrs Medication List reviewed and reconciled with the patient * Allergies: N o Known Drug Allergyno[Allergies Verified] Objective: * Vitals: H t: 65, Wt:126, BMI:20.97, BP:137/64, HR:91, Temp:98.2, Ht-cm: 165.1, Wt-k.15. * Examination: G eneral Examination: GENERAL APPEARANCE: p marilyn, well nourished, well developed, in no acute distress, Anxious: elderly man. HEAD: a traumatic, normocephalic. EYES: [...] bruits. LUNGS: : diminished breath sounds throughout: rhonchi on the RIGHT: rhonchi on the LEFT: no wheezes, rales, . BREASTS: no masses palpable bilaterally. ABDOMEN: b owel sounds normal, no ascites, no organomegaly, no mass. RECTAL EXAM: n ot examined. MUSCULOSKELETAL: e xtremities unremarkable, no clubbing, cyanosis or edema, Bilateral Dupuytren's contractures. PERIPHERAL PULSES: P resent. NEUROLOGIC: a lert and oriented, cranial nerves 2-12 grossly intact, deep tendon reflexes 2+ symmetrical, motor strength normal upper and lower extremities, sensory exam intact, Unremarkable for the age. PSYCH: a lert, oriented: thought process logical, goal directed: speech clear: cognitive function intact. Assessment: * Assessment: 1. C OPD (chronic [...] at great length today. 3 . H earing loss, bilateral - H91.93 N otes :There has been no change in his hearing. He did quite well over the telephone today. 4 . E ssential hypertension - I10 N otes :His blood pressure is currently stable at 142/62 and no change in his regimen was necessary. 5 . T ype 2 diabetes mellitus without complications - E11.9 N otes :His hemoglobin A1c has improved from 7.8 down to 7.4. Current therapy was continued with only one metformin tablet daily. 6 . P ulmonary nodule - R91.1 N otes :He has a 7 mm right lower lobe nodule which will be followed carefully. 7 . C alculus of ureter - N20.1 N otes :A stent has been inserted and then removed. The stone was removed and was calcium oxalate. It is free of pain at this time, but weakened and has lost 5 pounds with his recent surgery and hospitalization. 8 . D upuytrens contracture - M72.0 N otes :He has mild to moderate bilateral Dupuytren's contracture in the palm of each hand. It has become painful in the left hand recently. Plan: * Treatment: 2. O thers Referral To:Services - [facility] Unknown Reason:Consult and Treat Follow up PAD Needs Carotid U/S * Procedure Codes: * Preventive Medicine: Counseling: [...] tobacco use and urged to quit. 0 02/16/2025 Patient Lifestyle Goals P atient does not want to quit Treatment Goals S et a quit date, Cut down by 1 cigarette a week Barriers N ot interested in quitting Self-Management Plan M raudel [...] to 3 times a week for 30 mins. COPD Care Plan: P atient Lifestyle Goals B e able to be more active with friends and family, Reduce number of ED and hospitalizations, Relieve symptoms and improve quality of life. T reatment Goals E at a nutritious diet and increase water consumption to 6-8 glasses a day, Eat 4- 5 small meals throughout the day, Quit Smoking. B arriers n o barriers. * Follow Up: 3 Weeks (Reason: ov) * Images: * Sign off status: Completed true * Provider: Sapna Bustillos MD Date: 0 02/16/2025 Generated for Abner camara/Vee/Vic on: 1 07/19/2024 04:30 PM EST History and Physical Notes * HPI (History of Present Illness) Category Sub-Category Detail Notes COVID-19 Screening Questions Have you had any new onset fever, chills, cough, congestion, sore throat, shortness of breath, muscle aches?: No Examination Category Sub-Category Detail Notes General Examination GENERAL APPEARANCE: pleasant , well nourished, well developed, in no acute distress, Anxious: elderly man HEAD: atraumatic, normocep halic EYES: eomi, perrla, anicte estela, conjugate EARS: normal NOSE: septum intact NECK/THYROID: no jugular venous di stention, no carotid bruit, thyroid normal HEART: no clicks, gallops, murmurs, or rubs, regular rhythm, S1, S2 normal, no s3, or vascular bruits LUNGS: : diminished breath sounds throughout: rhonchi on the RIGHT: rhonchi on the LEFT: no wheezes, rales, ABDOMEN: bowel sounds normal, no ascites, no organomegaly, no mass NEUROLOGIC: alert and oriented, cranial nerves 2-12 grossly intact, deep tendon reflexes 2+ symmetrical, motor strength normal upper and lower extremities, sensory exam intact, Unremarkable for the age SKIN: no suspicious lesion s, anicteric PERIPHERAL PULSES: Present BREASTS: no masses palpable b ilaterally MUSCULOSKELETAL: extremities unremark able, no clubbing, cyanosis or edema, Bilateral Dupuytren's contractures LYMPH NODES: no enlarged lymph no ines,spleen normal RECTAL EXAM: not examined PSYCH: alert, oriented: tho ught process logical, goal directed: speech clear: cognitive function intact ORAL CAVITY: normal, unremarkable Consultation Request Notes Referral Date Referring Provider Referred Provider Not wily 02/16/2025 Jemal Bustillos [facility], Services - [place] Consult and Treat Follow up PAD Needs Carotid U/S
--- OUTSIDE RECORDS SUMMARY | 2025-02-20 04:09 | XMS_ITS ---
Author Organization Jemal Bustillos III, MD Address [address] [place] [address] [place] [address] Care Team Providers Care Child And Youth Program Assistant Name Role Phone Dr. Jemal Bustillos III Primary Care Provider REASON FOR VISIT Message Social History Sex Assigned At : Social History Observation Description Sex Assigned At Male Encounters Encounter Location Date Provider Diagnosis Jemal Bustillos III, MD [address] [place] [address] [place] [address] 02/20/2025 Jemal Bustillos Plan Of Treatment Next Appt Details Provider Name:Jemal Bustillos , 07/30/2025 09:30:00 AM, [address] [place] [address] [place], [address], Progress Notes * VANESSA HortensiaKerenOB:1940 (84 yo M)Acc No.[id number]:02/20/2025 Patient: Antolin AZEVEDO :1940 A ge:84 Y S ex:Male Address:[address] [place] [address], [place], [address] * true * Date: Generated for Abner camara/Vee/Vic on: 1 07/19/2024 04:30 PM EST
--- OUTSIDE RECORDS SUMMARY | 2025-02-23 05:15 | XMS_ITS ---
Author Organization Jemal Bustillos III, MD Address [address] [place] [address] [place] [address] Care Team Providers Care Underground Electrician Name Role Phone Dr. Jemal Bustillos III Primary Care Provider REASON FOR VISIT told patient to call Social History Sex Assigned At : Social History Observation Description Sex Assigned At Male Encounters Encounter Location Date Provider Diagnosis Jemal Bustillos III, MD [address] [place] [address] [place] [address] 02/23/2025 Jemal Bustillos Plan Of Treatment Next Appt Details Provider Name:Jemal Bustillos , 07/30/2025 09:30:00 AM, [address] [place] [address] [place], [address], Progress Notes * Beck PERDOMOOB:1940 (84 yo M)Acc No.[id number]:02/23/2025 Patient: Naomi NAPIERLLOYDAntolin :1940 A ge:84 Y S ex:Male Address:[address] [place] [address], [place], [address] * true * Date: Generated for Abner camara/Vee/Vic on: 07/19/2024 04:30 PM EST
--- OUTSIDE RECORDS SUMMARY | 2025-02-23 05:39 | XMS_ITS ---
Author Organization Jemal Bustillos III, MD Address [address] [place] [address] [place] [address] Care Team Providers Care Director Of Health Education Name Role Phone Dr. Jemal Bustillos III Primary Care Provider Medications Medication SIG (Take, Route, Fr equency, Duration) Notes Start Date End Date Status levoFLOXacin 500 MG 1 tablet Orally Once a day for 7 days 02/23/2025 03/02/2025 Active Social History Sex Assigned At : Social History Observation Description Sex Assigned At Male Encounters Encounter Location Date Provider Diagnosis Jemal Bustillos III, MD [address] [place] [address] [place] [address] 02/23/2025 Jemal Bustillos Plan Of Treatment Medication Medication Name Sig Start Date Stop Date Notes levoFLOXacin 500 MG 1 tablet Orally Once a day for 7 days 02/23/2025 03/02/2025 Next Appt Details Provider Name:Jemal Bustillos , 07/30/2025 09:30:00 AM, [address] [place] [address] [place], [address], Progress Notes * Beck PERDOMOOB:1940 (84 yo M)Acc No.[id number]:02/23/2025 Patient: Antolin AZEVEDO :1940 A ge:84 Y S ex:Male Address:[address] [place] [address], [address] * Refills Start levoFLOXacin Tablet, 500 MG, Orally, 7 Tablet, 1 tablet, Once a day, 7 days, Refills=0 * true * Date: Generated for Abner camara/Vee/Gloriasmitting on: 07/19/2024 04:30 PM EST
--- OUTSIDE RECORDS SUMMARY | 2025-02-28 04:04 | XMS_ITS ---
Author Organization Jemal Bustillos III, MD Address [address] [place] [address] [place] [address] Care Team Providers Care Respiratory Care Technician Name Role Phone Dr. Jemal Bustillos III Primary Care Provider [phone] REASON FOR VISIT FYI Medications Medication SIG (Take, Route, Frequency, Duration) Notes Start Date End Date Status levoFLOXacin 500 MG 1 tablet Orally Once a day for 7 days 02/23/2025 03/02/2025 Active amLODIPine Besylate 10 MG 1 tablet Orally Once a day Active Pravastatin Sodium 20 MG TAKE 1 TABLET BY MOUTH EVERYDAY AT BEDTIME Oral Active Solifenacin Succinate 5 MG Oral Active Ondansetron HCl 4 MG 1 tablet Orally every six hours if needed for 10 days 02/16/2025 Active glyBURIDE 5 MG TAKE 2 TABLETS BY MOUTH EVERY MORNING Patient has Insurance PA approval from 07/05/2024-05/30/20 25 Active metFORMIN HCl 1000 MG TAKE 1 TABLET BY MOUTH TWICE A DAY FOR 30 DAYS Active Aspirin Adult Low Dose 81 MG 1 tablet Orally Once a day Active Lisinopril 30 MG 1 tablet Orally Once a day 04/14/2023 Active Social History Sex Assigned At : Social History Observation Description Sex Assigned At Male Encounters Encounter Location Date Provider Diagnosis Jemal Bustillos III, MD [address] [place] [address] [address] [place] [address] 02/28/2025 Jemal Bustillos Plan Of Treatment Next Appt Details Provider Name:Jemal Gallegos Tressa , 07/30/2025 09:30:00 AM, [address] [place] [address] [place], [place], [address], Progress Notes * Hortensia PERDOMOKerenOB:1940 (84 yo M)Acc No.[id number]:02/28/2025 Patient: Antolin AZEVEDO :1940 A ge:84 Y S ex:Male Address:[address] [place] [address], [place], [address] Subjective: * Chief Complaints: * F GREEK * Medical History: * Surgical History: * Hospitalization/Major Diagno stic Procedure: * Medications: T akingglyBURIDE 5 MG Tablet [...] Oral Solifenacin Succinate 5 MG Tablet Oral Ondansetron HCl 4 MG Tablet 1 tablet Orally every six hours if needed levoFLOXacin 500 MG Tablet 1 tablet Orally Once a day , stop date 03/02/2025Taking glyBURIDE 5 MG Tablet TAKE 2 TABLETS [...] Taking Solifenacin Succinate 5 MG Tablet Oral Taking Ondansetron HCl 4 MG Tablet 1 tablet Orally every six hours if needed Taking levoFLOXacin 500 MG Tablet 1 tablet Orally Once a day , stop date 03/02/2025 Objective: * Vitals: * Physical Examination: Assessment: Plan: * Treatment: * Procedure Codes: * true * Date: Generated for Abner camara/Vee/Vic on: 07/19/2024 04:29 PM EST
--- OUTSIDE RECORDS SUMMARY | 2025-03-29 12:00 | XMS_ITS ---
Author Organization Jemal Bustillos III, MD Address [address] [place] [address] [place] [address] Care Team Providers Care Cvicu Rn Name Role Phone Dr. Jemal Bustillos III Primary Care Provider REASON FOR VISIT Follow up Social History Sex Assigned At : Social History Observation Description Sex Assigned At Male Encounters Encounter Location Date Provider Diagnosis Jemal Bustillos III, MD [address] [place] [address] [place] [address] 03/29/2025 Jemal Bustillos Plan Of Treatment Next Appt Details Provider Name:Jemal Bustillos , 07/30/2025 09:30:00 AM, [address] [place] [address] [place], [address], Progress Notes * CONORBeckOB:1940 (85 yo M)Acc No.[id number]:03/29/2025 Progress Notes Patient: Antolin AZEVEDO Provider: Sapna Bustillos MD :1940 A ge:84 Y S ex:Male Date:03/29/2025 Address:[address] [place] [address], [place], [place]-[phone] Subjective: * Chief Complaints: * 1 . Follow up. * Medical History: Objective: * Vitals: Assessment: Plan: * Treatment: * Images: * The named appointment provid er may or may not be the originator of this progress note, and it is not deemed complete until electronically signed by the appointment provider. Sign off status: Pending * Provider: Sapna Bustillos MD Date: Generated for Abner camara/Vee/Gloriasmitting on: 07/19/2024 04:30 PM EST
--- OUTSIDE RECORDS SUMMARY | 2025-04-19 04:15 | XMS_ITS ---
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 Jemal Bustillos III Primary Care Provider Allergies Allergen (clinical drug ingredient) Drug/Non Drug Allergy documented on EMR Reaction Allergy Type Onset Date Status No Known Drug Allergy Unknown Drug Allergy Active REASON FOR VISIT COPD, Diabetes, Bilateral hearing loss, Hyperlipidemia, Tobacco dependence(, Benign prostatic hypertrophy, Hypertension, Coronary artery disease, GERD, To put transient contraction Medications Medication SIG (Take, Route, Frequency, Duration) Notes Start Date End Date Status metFORMIN HCl 1000 MG TAKE 1 TABLET BY MOUTH TWICE A DAY FOR 30 DAYS Active amLODIPine Besylate 10 MG 1 tablet Orally Once a day Active Lisinopril 30 MG 1 tablet Orally Once a day 04/14/2023 Active Aspirin Adult Low Dose 81 MG 1 tablet Orally Once a day Active glyBURIDE 5 MG TAKE 2 TABLETS BY MOUTH EVERY MORNING Patient has Insurance PA approval from 07/05/2024- Active Ondansetron HCl 4 MG 1 tablet Orally every six hours if needed 02/16/2025 Active Solifenacin Succinate 5 MG Oral Active Pravastatin Sodium 20 MG TAKE 1 TABLET BY MOUTH EVERYDAY AT BEDTIME Oral Active Social History Tobacco Use: Social [...] e smoker (20-39 cigs/day) Vital Signs Temperature 98.0 degrees Fahrenheit 04/19/20 25 Blood pressure systolic 139 mm Hg 04/19/20 25 Blood pressure diastolic 55 mm Hg 025 Heart Rate 80 /min 04/19/2025 Respiratory Rate 16 /min 04/19/2025 Height 65 in 04/19/2025 Weight 130 lbs 04/19/2025 BMI 21.63 kg/m2 04/19/2025 Oximetry 99 % 04/19/2025 Encounters Encounter Location Date Provider Diagnosis Jemal Bustillos III, MD [address] [place] [address] [place] [address] 04/19/2025 Jemal Bustillos Tobacco dependence F17.200 ; Type 2 diabetes mellitus without complications E11.9 ; Hyperlipidemia E78.5 ; Essential hypertension I10 ; Underweight R63.6 ; Hearing loss, bilateral H91.93 ; Left carotid artery stenosis I65.22 ; GERD without esophagitis K21.9 ; Arteriosclerotic coronary artery disease I25.10 ; Complex renal cyst N28.1 and S/P cholecystectomy Z90.49 Assessments Encounter Date Diagnosis (ICD Code) Assessment Notes T reatment Notes Treatment Clinical Notes 04/19/2025 Tobacco dependence (ICD-10 - F17.200) He continues to smoke a package of cigarettes per day. He says he has no intention of trying to stop smoking at this point in his life. 04/19/2025 Type 2 diabetes mellitus without complications (ICD-10 - E11.9) In September of this year the hemoglobin A1c was 7.4. His most recent glucose which was not fasting was 217. I have ordered comprehensive blood work which will include fasting lipids, microalbumin, hemoglobin A1c and a fasting glucose to better manage his diabetes. He declines to home testing of his glucose levels 04/19/2025 Hyperlipidemia (ICD- 10 - E78.5) His lipids have been stable. No change in his regimen was necessary. The carotid arteries appear normal today. 04/19/2025 Essential hypertensi on (ICD-10 - I10) His blood pressure is currently adequately controlled. He has been compliant with his medications. I recommended aggressive sodium restriction to reduce his systolic blood pressure somewhat. 04/19/2025 Underweight (ICD-10 - R63.6) His appetite is good and his body mass index is slightly over 21.His nutrition is stable. I recommended he stabilize his weight at this level. 04/19/2025 Hearing loss, bilateral (ICD-10 - H91.93) There has been no change in his hearing. He did quite well over the telephone today. 04/19/2025 Left carotid artery stenosis (ICD-10 - I65.22) He has had an endarterectomy and now has a good pulse in the neck. 04/19/2025 GERD without esophagitis (ICD-10 - K21.9) His reflux symptoms have been well controlled with medication. He has been sleeping through the night lately. 04/19/2025 Arteriosclerotic coronary artery disease (ICD-10 - I25.10) He recently had an angioplasty of the right coronary artery and 2 stents put into the left system May 25, 2023 at [facility]. He says he is unable to tolerate the metoprolol as well as the Brilinta. He has had no angina since his last visit. 04/19/2025 Complex renal cyst (ICD-10 - N28.1) The cyst will be imaged periodically. 04/19/2025 S/P cholecystectomy (ICD-10 - Z90.49) He underwent a cholecystectomy for acute cholelithiasis 14 days ago. He is now recovering at home. He remains weak but his appetite is fair. Plan Of Treatment Medication Medication Name Sig Start Date Stop Date Notes metFORMIN HCl 1000 MG TAKE 1 TABLET BY MOUTH TWICE A DAY FOR 30 DAYS amLODIPine Besylate 10 MG 1 tablet Orally Once a day Lisinopril 30 MG 1 tablet Orally Once a day 04/14/2023 Aspirin Adult Low Dose 81 MG 1 tablet Orally Once a day glyBURIDE 5 MG TAKE 2 TABLETS BY MOUTH EVERY MORNING Patient has Insuranc e PA approval from 07/05/2024-05/30/2025 Ondansetron HCl 4 MG 1 tablet Orally every six hours if needed 02/16/2025 Solifenacin Succinate 5 MG Oral Pravastatin Sodium 20 MG TAKE 1 TABLET BY MOUTH EVERYDAY AT BEDTIME Oral Pending Test Test Name Order Date PROFILE, FASTING (COMPREHENSIVE METABOLI C) 04/19/2025 PSA, TOTAL 04/19/2025 CBC w DIFF 04/19/2025 Lipid Panel 04/19/2025 Microalbumin, Random 04/19/2025 Hemoglobin A1c 04/19/2025 Next Appt Details Follow Up: As Scheduled, Michelle son: Annual Exam Provider Name:Jemal Nieves Tressa , 07/30/2025 09:30:00 AM, [address] [place] [address] [address] [id number], [place], [address], Progress Notes * Hortensia PERDOMOKerenOB:1940 (84 yo M)Acc No.[id number]:04/19/2025 Progress Notes Patient: Antolin AZEVEDO Provider: Sapna Bustillos MD :1940 A ge:84 Y S ex:Male Date:04/19/2025 Address:[address] [place], [place] [id number] Subjective: * Chief Complaints: * C OPDDiabetesBilateral hearing lossHyperlipidemiaTobacco dependence(Benign prostatic hypertrophyHypertensionCoronary artery diseaseGERDTo put transient contraction * HPI: C OVID-19 Screening: Marisol nieves returns for a routine scheduled visit for medical management. He has continued to smoke a package of cigarettes per day. Once again he states he has no intention of stopping his tobacco consumption. He plans to go to his youngest son's house for Thanksgiving dinner. He says he has no idea what his blood glucose levels have been. He has had no change in his bilateral hearing loss. His back pain has not been troubling him lately. He has had no heartburn lately. He is experiencing nocturia twice a night. He has had no change in the bilateral Dupuytren's contracture. He denies any recent episodes of chest pain or dyspnea. He is primarily sedentary at home. Questions H ave you had [...] enies. S ciatica d enies. W eakness t hat is generalized. S kin: Itching d enies. R dali d enies. S kin lesion(s)?denies. N eurologic: Difficulty speaking d enies. D izziness d enies.?Headache d enies. L ow back pain d enies. P sychiatric: Depressed mood d enies. * Medical History: * Surgical History: b ilateral cataracts left carotid endarterectomy [facility], Dr. Alonso 09/2017Cystoscopy with left ureteral stent subsequently removed, ureterolithiasis ardiac cath with 2 stent placements at [facility] [place] holecystectomy TURP 07/2024 * Hospitalization/Major Diagno stic Procedure: T IA 08/2017Hospitalized at [facility] for prostate surgery * Family History: F [...] sons and 2 grandchildren. 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 He smoked cigarettes but does not drink alcohol or take drugs. He has no occupational exposures and no travel history. Smokin.5 packs per day Smoking: Patient smokes 15-20 cigarettes a day. * Medications: T akingglyBURIDE 5 MG Tablet TAKE 2 TABLETS BY MOUTH EVERY MORNING , Notes to Pharmacist: Patient has Insurance PA approval from 07/05/2024-05/30/2025spirin Adult Low Dose 81 MG Tablet Delayed [...] tablet Orally every six hours if needed metFORMIN HCl 1000 MG Tablet TAKE 1 TABLET BY MOUTH TWICE A DAY FOR 30 DAYS Medication List reviewed and reconciled with the patientTaking glyBURIDE 5 MG Tablet TAKE 2 TABLETS BY MOUTH EVERY MORNING , Notes to Pharmacist: Patient has Insurance PA approval from 07/05/2024-05/30/2025Taking Aspirin Adult Low Dose 81 MG Tablet [...] Orally every six hours if needed Taking metFORMIN HCl 1000 MG Tablet TAKE 1 TABLET BY MOUTH TWICE A DAY FOR 30 DAYS Medication List reviewed and reconciled with the patient * Allergies: N o Known Drug Allergyno[Allergies Verified] Objective: * Vitals: H t: 65, Wt:130, BMI:21.63, BP:139/55, HR:80, RR:16, Temp:98.0, Oxygen sat %:99, Ht-cm: 165.1, Wt-k.97. * P ast Orders: Imaging:US renal BI * Performed Date 01/22/2025 03/15/2023 02/10/2022 04:12 PM 08:37 AM 08:27 AM Order Date 01/22/2025 03/15/2023 02/10/2022 * Imaging:CT abdomen pelvis w con * Performed Date 02/19/2025 10/21/2023 09/08/2023 09:14 PM 06:24 PM 09:36 PM Order Date 02/19/2025 10/21/2023 09/08/2023 * Lab:Lipase * Collection Date 02/19/2025 10/21/2023 09/14/2023 Collection Time 03:59 PM 12:00 PM 06:25 AM Order Date 02/19/2025 10/21/2023 09/14/2023 Lipase 25 (Ref Range: 8-78 U/L) 12 (Ref Range: 8-78 U/L) 19 (Ref Range: 8-78 U/L) * Lab:Magnesium * Collection Date 02/19/2025 02/25/2024 10/21/2023 Collection Time 03:59 PM 09:59 AM 12:00 PM Order Date 02/19/2025 02/25/2024 10/21/2023 Magnesium 2.0 (Ref Range: 1.6-2.6 mg/dL) 1.9 (Ref Range: 1.6-2.6 mg/dL) 1.5 L (Ref Range: 1.6-2.6 mg/dL) * Lab:UA ClnCatch+Micro w/rflx Cult * Collection Date 02/19/2025 05/04/2024 10/21/2023 Collection Time 09:16 PM 09:42 AM 06:35 PM Order Date 02/19/2025 05/04/2024 10/21/2023 Color Urine Yellow Yellow Yellow Appearance Urine Clear Clear Cloudy PH 5.0 (Ref Range: 5.0-9.0) 5.0 (Ref Range: 5.0-9.0) 5.5 (Ref Range: 5.0-9.0) Glucose Urine UA 100 A (Ref Range: Negative mg/dL) 250 A (Ref Range: Negative mg/dL) Negative (Ref Range: Negative mg/dL) Urine Blood Trace A (Ref Range: Negative) Negative (Ref Range: Negative) Negative (Ref Range: Negative) Specific [place] - Urine 1.025 (Ref Range: 1.005-1.025) 1.015 (Ref Range: 1.005-1.025) 1.015 (Ref Range: 1.005-1.025) Urine Protein 100 (2+) A (Ref Range: Neg-Trace mg/dL) 30 (1+) A (Ref Range: Neg-Trace mg/dL) Trace (Ref Range: Neg-Trace mg/dL) Urine Ketones Negative (Ref Range: Negative mg/dL) Negative (Ref Range: Negative mg/dL) Negative (Ref Range: Negative mg/dL) Nitrite Urine Negative (Ref Range: Negative) Negative (Ref Range: Negative) Negative (Ref Range: Negative) Leukocyte Esterase Urine Moderate (2+) A (Ref Range: Negative) Small (1+) A (Ref Range: Negative) Trace A (Ref Range: Negative) RBC Urine 0-2 (Ref Range: 0-2 /HPF) 0-2 (Ref Range: 0-2 /HPF) 0-2 (Ref Range: 0-2 /HPF) WBC Urine 21-50 A (Ref Range: 0-5 /HPF) 11-20 A (Ref Range: 0-5 /HPF) 0-5 (Ref Range: 0-5 /HPF) Squamous Epithelial Cell Urine 0-2 (Ref Range: 0-2 /HPF) 0-2 (Ref Range: 0-2 /HPF) 0-2 (Ref Range: 0-2 /HPF) Bacteria Urine Trace (Ref Range: None Seen) None Seen (Ref Range: None Seen) None Seen (Ref Range: None Seen) Hyaline Casts Urine 0-2 (Ref Range: 0-2 /LPF) 0-2 (Ref Range: 0-2 /LPF) 0-2 (Ref Range: 0-2 /LPF) * Lab:Comprehensive Met. Panel * Collection Date 02/19/2025 05/04/2024 02/14/2024 Collection Time 03:59 PM 09:42 AM 09:03 AM Order Date 02/19/2025 05/04/2024 02/14/2024 Sodium 138 (Ref Range: 135-145 mmol/L) 135 (Ref Range: 135-145 mmol/L) 139 (Ref Range: 135-145 mmol/L) Bilirubin Total 0.2 (Ref Range: 0.0-1.0 mg/dL) 0.4 (Ref Range: 0.0-1.0 mg/dL) 0.3 (Ref Range: 0.0-1.0 mg/dL) Aspartate Amino Transferase 22 (Ref Range: 5-37 U/L) 67 H (Ref Range: 5-37 U/L) 30 (Ref Range: 5-37 U/L) Alanine Aminotransferase 23 (Ref Range: 0-40 U/L) 182 H (Ref Range: 0-40 U/L) 70 H (Ref Range: 0-40 U/L) Total Protein 7.1 (Ref Range: 6.5-8.0 g/dL) 6.4 L (Ref Range: 6.5-8.0 g/dL) 6.9 (Ref Range: 6.5-8.0 g/dL) Albumin Level 4.5 (Ref Range: 3.5-5.0 g/dL) 3.7 (Ref Range: 3.5-5.0 g/dL) 4.2 (Ref Range: 3.5-5.0 g/dL) Alkaline Phosphatase 87 (Ref Range: 39-117 U/L) 92 (Ref Range: 39-117 U/L) 92 (Ref Range: 39-117 U/L) Potassium 5.5 H (Ref Range: 3.3-5.1 mmol/L) 4.9 (Ref Range: 3.3-5.1 mmol/L) 5.5 H (Ref Range: 3.3-5.1 mmol/L) Chloride 106 (Ref Range: 96-108 mmol/L) 102 (Ref Range: 96-108 mmol/L) 109 H (Ref Range: 96-108 mmol/L) Carbon Dioxide 23 (Ref Range: 22-29 mmol/L) 25 (Ref Range: 22-29 mmol/L) 22 (Ref Range: 22-29 mmol/L) Anion Gap 15 (Ref Range: 12-20) 13 (Ref Range: 12-20) 14 (Ref Range: 12-20) Blood Urea Nitrogen 28 H (Ref Range: 9-16 mg/dL) 28 H (Ref Range: 9-16 mg/dL) 26 H (Ref Range: 9-16 mg/dL) Creatinine 1.10 (Ref Range: 0.5-1.4 mg/dL) 1.23 (Ref Range: 0.5-1.4 mg/dL) 1.13 (Ref Range: 0.5-1.4 mg/dL) Estimated Glomerular Filt Rate > 60 56 > 60 Glucose Random 217 H (Ref Range: 60-115 mg/dL) 309 H (Ref Range: 60-115 mg/dL) 126 H (Ref Range: 60-115 mg/dL) Calcium 9.7 (Ref Range: 8.4-10.2 mg/dL) 8.8 (Ref Range: 8.4-10.2 mg/dL) 9.6 (Ref Range: 8.4-10.2 mg/dL) Creatinine Clr Calc Pharmacy 37.2 41.4 NR * Lab:UA CC w/rflx Micro + Cul t * Collection Date 02/19/2025 09/03/2023 Collection Time 09:16 PM 04:19 PM Order Date 02/19/2025 09/03/2023 Color Urine Yellow Yellow Appearance Urine Clear Clear PH 5.0 (Ref Range: 5.0-9.0) 5.0 (Ref Range: 5.0-9.0) Glucose Urine UA 100 A (Ref Range: Negative mg/dL) Negative (Ref Range: Negative mg/dL) Urine Blood Trace A (Ref Range: Negative) Negative (Ref Range: Negative) Specific Paramount - Urine 1.025 (Ref Range: 1.005-1.025) 1.015 (Ref Range: 1.005-1.025) Urine Protein 100 (2+) A (Ref Range: Neg-Trace mg/dL) Trace (Ref Range: Neg-Trace mg/dL) Urine Ketones Negative (Ref Range: Negative mg/dL) Negative (Ref Range: Negative mg/dL) Nitrite Urine Negative (Ref Range: Negative) Negative (Ref Range: Negative) Leukocyte Esterase Urine Moderate (2+) A (Ref Range: Negative) Negative (Ref Range: Negative) * Lab:Complete Blood Count Aut o Diff * Collection Date 02/19/2025 10/20/2024 05/04/2024 Collection Time 03:59 PM 07:06 AM 09:42 AM Order Date 02/19/2025 10/20/2024 05/04/2024 White Blood Count 9.6 (Ref Range: 4.8-10.8 X10*3/uL) 10.6 (Ref Range: 4.8-10.8 X10*3/uL) 11.6 H (Ref Range: 4.8-10.8 X10*3/uL) Red Blood Count 4.20 L (Ref Range: 4.60-5.80 X10*6/uL) 4.23 L (Ref Range: 4.60-5.80 X10*6/uL) 3.86 L (Ref Range: 4.60-5.80 X10*6/uL) Hemoglobin 13.2 L (Ref Range: 14.0-18.0 g/dl) 13.2 L (Ref Range: 14.0-18.0 g/dl) 12.1 L (Ref Range: 14.0-18.0 g/dl) Hematocrit 38.7 L (Ref Range: 42.0-52.0 %) 39.9 L (Ref Range: 42.0-52.0 %) 36.2 L (Ref Range: 42.0-52.0 %) Mean Corpuscular Volume 92.1 (Ref Range: 80.0-98.0 fL) 94.3 (Ref Range: 80.0-98.0 fL) 93.8 (Ref Range: 80.0-98.0 fL) Mean Corpuscular Hemoglobin 31.4 (Ref Range: 27.0-33.0 pg) 31.2 (Ref Range: 27.0-33.0 pg) 31.3 (Ref Range: 27.0-33.0 pg) Mean Corpuscular HGB Conc 34.1 (Ref Range: 31.0-36.0 g/dl) 33.1 (Ref Range: 31.0-36.0 g/dl) 33.4 (Ref Range: 31.0-36.0 g/dl) Red Cell Distribution Width 13.5 (Ref Range: 11.0-16.0 %) 13.8 (Ref Range: 11.0-16.0 %) 14.8 (Ref Range: 11.0-16.0 %) Platelet Count 236 (Ref Range: 160-400 X10*3/uL) 346 (Ref Range: 160-400 X10*3/uL) 328 (Ref Range: 160-400 X10*3/uL) Mean Platelet Volume 10.4 (Ref Range: 9.4-12.4 fL) 9.9 (Ref Range: 9.4-12.4 fL) 10.0 (Ref Range: 9.4-12.4 fL) Neutrophils Percent Auto 66.3 (Ref Range: 45-73 %) 51.1 (Ref Range: 45-73 %) 72.8 (Ref Range: 45-73 %) Imm Gran Pct Auto 0.4 (Ref Range: 0.0-0.4 %) 0.4 (Ref Range: 0.0-0.4 %) 0.5 H (Ref Range: 0.0-0.4 %) Lymphocytes Percent Auto 22.9 (Ref Range: 20-40 %) 33.6 (Ref Range: 20-40 %) 17.8 L (Ref Range: 20-40 %) Monocytes Percent Auto 6.6 (Ref Range: 2-11 %) 10.5 (Ref Range: 2-11 %) 6.1 (Ref Range: 2-11 %) Eosinophils Percent Auto 3.3 (Ref Range: 0-4 %) 4.0 (Ref Range: 0-4 %) 2.5 (Ref Range: 0-4 %) Basophils Percent Auto 0.5 (Ref Range: 0-2 %) 0.4 (Ref Range: 0-2 %) 0.3 (Ref Range: 0-2 %) NRBC Pct Auto 0.0 (Ref Range: 0.0-0.2 /100WBC) 0.0 (Ref Range: 0.0-0.2 /100WBC) 0.0 (Ref Range: 0.0-0.2 /100WBC) Neutrophils Absolute Auto 6.4 (Ref Range: 2.0-8.3 x10*3/uL) 5.4 (Ref Range: 2.0-8.3 x10*3/uL) 8.5 H (Ref Range: 2.0-8.3 x10*3/uL) Imm Gran Abs Auto 0.04 H (Ref Range: 0.00-0.03 X10*3/uL) 0.04 H (Ref Range: 0.00-0.03 X10*3/uL) 0.06 H (Ref Range: 0.00-0.03 X10*3/uL) Lymphocytes Absolute Auto 2.2 (Ref Range: 1.2-4.9 X10*3/uL) 3.6 (Ref Range: 1.2-4.9 X10*3/uL) 2.1 (Ref Range: 1.2-4.9 X10*3/uL) Monocytes Absolute Auto 0.6 (Ref Range: 0.1-1.2 X10*3/uL) 1.1 (Ref Range: 0.1-1.2 X10*3/uL) 0.7 (Ref Range: 0.1-1.2 X10*3/uL) Eosinophils Absolute Auto 0.3 (Ref Range: 0.0-0.4 X10*3/uL) 0.4 (Ref Range: 0.0-0.4 X10*3/uL) 0.3 (Ref Range: 0.0-0.4 X10*3/uL) Basophils Absolute Auto 0.1 (Ref Range: 0.0-0.2 X10*3/uL) 0.0 (Ref Range: 0.0-0.2 X10*3/uL) 0.0 (Ref Range: 0.0-0.2 X10*3/uL) NRBC Abs Auto 0.000 (Ref Range: 0.0-0.012 X10*3/uL) 0.000 (Ref Range: 0.0-0.012 X10*3/uL) 0.000 (Ref Range: 0.0-0.012 X10*3/uL) * Lab:SLIDE REVIEW * Collection Date 02/19/2025 10/02/2023 09/28/2022 Collection Time 03:59 PM 04:14 AM 08:53 PM Order Date 02/19/2025 10/02/2023 09/28/2022 SLIDE REVIEW VERIFIED VERIFIED VERIFIED * Lab:Urine Culture * Collection Date 02/19/2025 05/04/2024 05/22/2023 Collection Time 09:29 PM 07:17 PM Order Date 02/19/2025 05/04/2024 05/22/2023 Urine Culture > 100,000 cfu/mL urogenital contamination. 10,000 to 50,000 cfu/mL Ampicillin <=2 S NR <=2 S Levofloxacin 0.5 S NR 1 S Nitrofurantoin <=16 S NR <=16 S O:ENTFAC Enterococcus faecali s NR Enterococcus faecalis Tetracycline >=16 R NR >=16 R Vancomycin 1 S NR 1 S * Examination: G eneral Examination: GENERAL APPEARANCE: p leasant, well nourished, well developed, in no acute distress, calm and relaxed: elderly man. HEAD: a traumatic, normocephalic. EYES: e marcus, perrla, anicteric, conjugate. EARS: : Normal anatomy with bilateral hearing loss. NOSE: s eptum intact. ORAL CAVITY: n ormal, unremarkable, No visible lesions.? NECK/THYROID: n o jugular venous distention, no carotid bruit, thyroid normal. LYMPH NODES: n o enlarged lymph nodes,spleen normal. SKIN: n o suspicious lesions, anicteric. HEART: n o clicks, gallops, murmurs, or rubs, regular rhythm, S1, S2 normal, no s3, or vascular bruits. LUNGS: : diminished breath sounds throughout: rhonchi on the RIGHT: rhonchi on the LEFT. BREASTS: no masses palpable bilaterally. ABDOMEN: b owel sounds normal, no ascites, no organomegaly, no mass. RECTAL EXAM: n ot examined. MUSCULOSKELETAL: e xtremities unremarkable, no clubbing, cyanosis or edema. PERIPHERAL PULSES: n ormal. NEUROLOGIC: a lert and oriented, cranial nerves 2-12 grossly intact, deep tendon reflexes 2+ symmetrical, motor strength normal upper and lower extremities, sensory exam intact. PSYCH: a lert, oriented: cognitive function intact: cooperative with exam: good eye contact: speech clear: thought process logical, goal directed. ? Assessment: * Assessment: 1. T ype 2 diabetes mellitus without complications - E11.9 (Primary) N otes :In September of this year the hemoglobin A1c was 7.4. His most recent glucose which was not fasting was 217. I have ordered comprehensive blood work which will include fasting lipids, microalbumin, hemoglobin A1c and a fasting glucose to better manage his diabetes. He declines to home testing of his glucose levels 2 . T obacco dependence - F17.200 N otes :He continues to smoke a package of cigarettes per day. He says he has no intention of trying to stop smoking at this point in his life. 3 . H yperlipidemia - E78.5 N otes :His lipids have been stable. No change in his regimen was necessary. The carotid arteries appear normal today. 4 . E ssential hypertension - I10 N otes :His blood pressure is currently adequately controlled. He has been compliant with his medications. I recommended aggressive sodium restriction to reduce his systolic blood pressure somewhat. 5 . U nderweight - R63.6 N otes :His appetite is good and his body mass index is slightly over 21.His nutrition is stable. I recommended he stabilize his weight at this level. 6 . H earing loss, bilateral - H91.93 N otes :There has been no change in his hearing. He did quite well over the telephone today. 7 . L eft carotid artery stenosis - I65.22 N otes :He has had an endarterectomy and now has a good pulse in the neck. 8 . G ERD without esophagitis - K21.9 N otes :His reflux symptoms have been well controlled with medication. He has been sleeping through the night lately. 9 . A rteriosclerotic coronary artery disease - I25.10 N otes :He recently had an angioplasty of the right coronary artery and 2 stents put into the left system May 25, 2023 at [facility]. He says he is unable to tolerate the metoprolol as well as the Brilinta. He has had no angina since his last visit. 1 0. C omplex renal cyst - N28.1 N otes :The cyst will be imaged periodically. 1 1. S /P cholecystectomy - Z90.49 N otes :He underwent a cholecystectomy for acute cholelithiasis 14 days ago. He is now recovering at home. He remains weak but his appetite is fair. Plan: * Treatment: 2. T obacco dependence Continue metFORMIN HCl Tablet, 1000 MG, TAKE 1 TABLET BY MOUTH TWICE A DAY FOR 30 DAYS; C ontinue glyBURIDE Tablet, 5 MG, TAKE 2 TABLETS BY MOUTH EVERY MORNING, Notes to Pharmacist: Patient has Insurance PA approval from 07/05/2024-05/30/2025; C ontinue Aspirin Adult Low Dose Tablet Delayed Release, 81 MG, 1 tablet, Orally, Once a day; C ontinue Lisinopril Tablet, 30 MG, 1 tablet, Orally, Once a day; C ontinue amLODIPine Besylate Tablet, 10 MG, 1 tablet, Orally, Once a day; C ontinue Pravastatin Sodium Tablet, 20 MG, TAKE 1 TABLET BY MOUTH EVERYDAY AT BEDTIME, Oral; C ontinue Solifenacin Succinate Tablet, 5 MG, Oral; C ontinue Ondansetron HCl Tablet, 4 MG, 1 tablet, Orally, every six hours if needed. 3. H yperlipidemia L AB: PROFILE, FASTING (COMPREHENSIVE METABOLIC) L AB: PSA, TOTAL L AB: CBC w DIFF L AB: Lipid Panel L AB: Microalbumin, Random L AB: Hemoglobin A1c 4. E ssential hypertension L AB: PROFILE, FASTING (COMPREHENSIVE METABOLIC) L AB: PSA, TOTAL L AB: CBC w DIFF L AB: Lipid Panel L AB: Microalbumin, Random L AB: Hemoglobin A1c 5. U nderweight L AB: PROFILE, FASTING (COMPREHENSIVE METABOLIC) L AB: PSA, TOTAL L AB: CBC w DIFF L AB: Lipid Panel L AB: Microalbumin, Random L AB: Hemoglobin A1c * Procedure Codes: 9 4760 MEASURE BLOOD OXYGEN LEVEL * Preventive Medicine: Counseling: S moking/Tobacco Use Patient counseled on the dangers of tobacco use and urged to quit. 1 06/19/2024 Patient Lifestyle Goals P atient does not [...] arriers n o barriers. S elf-Managment Goals S top drinking juice and/or soda, replace with more water, Take blood sugars twice daily and keep a log. Bring log in to next appointment. COPD Care Plan: P atient Lifestyle Goals R elieve symptoms and improve quality of life, Reduce number of ED and hospitalizations, Be able to be more active with friends and family. T reatment Goals Q uit Smoking. B arriers n o barriers. S elf-Managment Goals G et an air purifier for the rooms you are in the most, Eat a healthy diet. * Follow Up: A s Scheduled (Reason: Annual Exam) * Images: * Sign off status: Completed true * Provider: Sapna Bustillos MD Date: 06/19/2024 Generated for Abner camara/Vee/eTransmitting on: 07/19/2024 04:30 PM EST History and [...] EYES: eomi, perrla, anicte estela, conjugate EARS: : Normal anatomy wit h bilateral hearing loss NOSE: septum intact NECK/THYROID: no jugular venous di stention, no carotid bruit, thyroid normal HEART: no clicks, gallops, murmurs, or rubs, regular rhythm, S1, S2 normal, no s3, or vascular bruits LUNGS: : diminished breath sounds throughout: rhonchi on the RIGHT: rhonchi on the LEFT ABDOMEN: bowel sounds normal, no ascites, no [...] RECTAL EXAM: not examined PSYCH: alert, oriented: cog nitive function intact: cooperative with exam: good eye contact: speech clear: thought process logical, goal directed ORAL CAVITY: normal, unremarkable , No visible lesions
[2025-05-18] VITALS (8 sets, daily range): BP systolic 160–211; BP diastolic 60–78; PULSE 72–92; RESP 16–20; TEMP 36.2–36.8; O2SAT 87–96; BMI 21.3
--- NOTE | ~2025-05-18 | CT_ITS ---
CLINICAL HISTORY: eval for ischemia CT angiography abdomen and pelvis with contrast. 3-D post processing. Comparison: CT/REG/SR - CT ABDOMEN PELVIS W IV CON - 02/19/25 20:26 EDT Findings: Mild calcified atherosclerotic disease of the abdominal aorta. The celiac, SMA, DOC and single left and right renal arteries are patent. Endovascular stent of the proximal left external iliac artery. Hiatal hernia. The lung bases are clear. The liver demonstrates a microlobulated contour with hypertrophy of the caudate lobe. Prior cholecystectomy. Spleen is within normal limits. Left renal interpolar region exophytic homogeneous low-attenuation lesion, 3.4 cm, right interpolar region 1.4 cm and upper pole 1.6 cm; renal cysts. Left interpolar region 0.4 cm, lower pole 0.5 cm, right interpolar region 0.4 cm nonobstructing nephroliths. The adrenals and pancreas are within normal limits. No bowel obstruction, pneumoperitoneum, or pneumatosis. The prostate is within normal limits. Bilateral inguinal hernias with adipose tissue in lumen, left 1.4 x 1.6 x a 7.7, right 2.2 x 1.6 x [address] evidence of incarceration or strangulation. The bones are intact. IMPRESSION: 1. Endovascular stent in the proximal left external iliac artery, patent. 2. Bilateral inguinal hernias without CT evidence of incarceration or strangulation. 3. Multiple renal cysts, largest 3.4 cm in left interpolar region. 4. Small nonobstructing nephroliths bilaterally. 5. Liver with microlobulated contour and caudate lobe hypertrophy, suggestive of cirrhosis. 6. Hiatal hernia. 7. No acute intraabdominal or pelvic findings. This document has been electronically signed by: Billy Galloway MD on 05/18/2025 17:51:39
[2025-05-18 11:06] LABS: MANUAL DIFF FLAG NO
[2025-05-18 11:09] LABS: Hematocrit 38.6 % (42.0-52.0); Hemoglobin 12.8 g/dl (14.0-18.0); Imm Gran Abs Auto 0.04 X10*3/uL (0.00-0.03); Imm Gran Pct Auto 0.4 % (0.0-0.4); Lymphocytes Absolute Auto 2.6 X10*3/uL (1.2-4.9); Mean Corpuscular HGB Conc 33.2 g/dl (31.0-36.0); Mean Corpuscular Hemoglobin 31.4 pg (27.0-33.0); Mean Corpuscular Volume 94.8 fL (80.0-98.0); NRBC Abs Auto 0.000 X10*3/uL (0.0-0.012); NRBC Pct Auto 0.0 /100WBC (0.0-0.2); Platelet Count 287 X10*3/uL (160-400); Red Blood Count 4.07 X10*6/uL (4.60-5.80); White Blood Count 10.0 X10*3/uL (4.8-10.8)
[2025-05-18 11:22] LABS: Lipase 39 U/L (8-78); Magnesium 1.8 mg/dL (1.6-2.6)
[2025-05-18 11:23] LABS: Albumin Level 4.5 g/dL (3.5-5.0); Alkaline Phosphatase 86 U/L (39-117); Anion Gap 14 (12-20); Aspartate Amino Transferase 33 U/L (5-37); Blood Urea Nitrogen 23 mg/dL (9-16); Calcium 9.1 mg/dL (8.4-10.2); Carbon Dioxide 27 mmol/L (22-29); Chloride 103 mmol/L (96-108); Creatinine Clr Calc Pharmacy 40.3; Estimated Glomerular Filt Rate > 60; Potassium 4.5 mmol/L (3.3-5.1); Sodium 139 mmol/L (135-145); Total Protein 7.1 g/dL (6.5-8.0)
[2025-05-18 11:34] LABS: Alanine Aminotransferase 44 U/L (0-40)
--- NOTE | 2025-05-18 13:48 | ED.GENADULT ---
HPI - General Adult General Chief complaint: General Medical Stated complaint: stomach pain Time Seen by Provider: 05/18/25 15:24 Source: patient Mode of arrival: ambulatory Limitations: no limitations History of Present Illness ED Provider: [facility] narrative: 85-year-old male, presenting with abdominal bloating, nausea, reports this has been going on since the summer after cholecystectomy, denies chest pain shortness of breath fevers or chills, no dysuria hematuria, pain maybe postprandial, possibly during positional changes. Related Data Home Medications ?Medication ?Instructions ?Recorded ?Confirmed aspirin 81 mg tablet,delayed 81 mg PO DAILY 09/24/22 02/13/25 release glyburide 5 mg tablet 10 mg PO DAILY@0900 09/14/23 02/13/25 metformin 1,000 mg tablet 1,000 mg PO DAILY 08/02/24 02/13/25 Previous Rx's ?Medication ?Instructions ?Recorded amlodipine 10 mg tablet 10 mg PO DAILY #90 tabs 08/08/24 lisinopril 10 mg tablet 10 mg PO DAILY #90 tabs 08/30/24 pravastatin 20 mg tablet 20 mg PO BEDTIME #90 tabs 11/10/24 simethicone 250 mg capsule (Gas 250 mg PO BID PRN abdominal 02/19/25 Relief (simethicone)) distention #30 caps nitrofurantoin 100 mg PO BID 7 days #14 caps 02/24/25 monohydrate/macrocrystals 100 mg capsule (Macrobid) Allergies Allergy/AdvReac Type Severity Reaction Status Date / Time No Known Allergies (No Known Allergy Verified 05/18/25 09:54 Allergies*) Review of Systems Constitutional: Constitutional: Reports as per [facility] Past Medical History Medical History Hyperlipidemia CAD (coronary artery disease) Nephrolithiasis NSTEMI (non-ST elevated myocardial infarction) Nausea Acute cholecystitis Peripheral arterial disease TIA (transient ischemic attack) COPD (chronic obstructive pulmonary disease) Hearing loss Elevated cholesterol HTN (hypertension) Staghorn calculus Enlarged prostate Diabetes mellitus, type II Renal cysts, acquired, bilateral History of kidney stones Rotator cuff impingement syndrome Surgical History Hx of cardiac catheterization Hx of cystoscopy History of left-sided carotid endarterectomy Hx of cataract surgery Hx of lithotripsy History of surgery Social History Social History Household Members: None Household Members Other:: 0 Housing: House Housing Other:: apt. in duplex Are you a primary personal care aid to a significant other at home: No Do you presently have visiting nurse or other home services: No Patient Tobacco Use Status: Current everyday Tobacco user Tobacco use type: Cigarette Cigarette Packs Per Day: 1.5 Cigarettes Per Day: 30.0 Years Smoked: 60 Smoked in Last 30 Days: No e-Cigarette/Vaping Use: Never Used Use of substances other than those prescribed or required for medical reasons: No Advance Directives: Yes Advance Directives on File: Yes Advance Directives Date on File: 09/29/22 Do you have a plan to hurt others: No Plan service: Yes Current occupational status: employed Physical Exam ED Exam Exam: ?General: ??looks age appropriate ?PERRLA, EOMI, MMM, Neck: Supple, no LAD ?CV: RRR, no obvious murmurs appreciated ?Resp: ?No wheezing rales rhonchi no stridor moving air well Abd: ?Bowel sounds are present, somewhat distended, nontender MSK: FROM, strength 5/5 all extremities Skin: Warm, dry, intact, ?Neuro: ?Alert and oriented x3, moving upper and lower extremities symmetrically, no obvious facial asymmetry noted, cranial nerves 2-12 intact Vital Signs: Vital Signs - 24 hr 05/18/25 09:54 05/18/25 13:54 05/18/25 13:54 Temperature 98.0 F 97.1 F 97.1 F Pulse Rate 92 89 89 Respiratory Rate 20 18 18 Blood Pressure 211/78 H 160/70 H 160/70 H Pulse Oximetry 96 93 93 Oxygen Delivery Method Room Air Room Air Room Air 05/18/25 15:03 05/18/25 15:33 05/18/25 15:54 Temperature 98.2 F Pulse Rate 80 75 Respiratory Rate 16 16 Blood Pressure 208/76 H 192/78 H 172/66 H Pulse Oximetry 93 91 L Oxygen Delivery Method Room Air Room Air 05/18/25 16:00 05/18/25 18:00 Temperature Pulse Rate 72 80 Respiratory Rate 18 19 Blood Pressure 170/66 H 170/60 H Pulse Oximetry 90 L 87 L Oxygen Delivery Method Room Air Room Air BMI result Body Mass Index 21.3 Course Course Course Narrative: This is a Rapid Medical Exam performed in triage by Milady Yo PA-C. Full HPI, ROS and PE to be performed by primary ED provider. 85-year-old male with a past medical history HLD, CAD, nephrolithiasis, NSTEMI, biliary colic s/p cholecystectomy 6 months ago presenting to the ED c/o abdominal pain & nausea x6 months worsening over the past 2 days -pain more constant. Denies fever, chills, urinary symptoms. PE: Abdomen is soft, mildly tender. No rebound or guarding. Lungs CTA Plan: EKG, labs, UA Medications Administered Discontinued Medications Generic Name Dose Route Start Last Admin Trade Name Freq PRN Reason Stop Dose Admin Sodium Chloride 1,000 mls @ 999 mls/hr 05/18/25 15:45 05/18/25 17:07 Ns IV 05/18/25 16:45 Infused .Q1H1M NAYAN Infusion Iohexol 100 ml 05/18/25 17:12 05/18/25 17:13 Iohexol 350 Mg/Ml 100 Ml Infus..Btl IV 05/18/25 17:13 80 ml ONCE ONE Administration Ondansetron HCl 4 mg 05/18/25 15:43 05/18/25 15:54 Ondansetron Hcl 4 Mg/2 Ml Vial IVPUSH 05/18/25 15:44 4 mg ONCE ONE Administration Medical Decision Making Medical Decision Making MDM Narrative: 3:48 PM 05/18/2025 (Dr. Eugene Lala): Chronicity and age of patient's symptoms his history of cardiac catheterization and stents raises the suspicion for me that he may have ischemic gut, we will obtain lactic acid, CT angio, this is likely chronic and recurrent and possibly happens when he goes from laying down to standing and some of the symptoms sounds like they are postprandial, he endorses that symptoms started around the summer after cholecystectomy, other considerations include ACS, infectious etiology, SBO, patient's care will be signed out to incoming provider pending disposition.Dr. Aiken Took over the case at the change of shift. Patient's CT scan showed no overt large vessel occlusion. It did show the following 1. Endovascular stent in the proximal left external iliac artery, patent. 2. Bilateral inguinal hernias without CT evidence of incarceration or strangulation. 3. Multiple renal cysts, largest 3.4 cm in left interpolar region. 4. Small nonobstructing nephroliths bilaterally. 5. Liver with microlobulated contour and caudate lobe hypertrophy, suggestive of cirrhosis. 6. Hiatal hernia. 7. No acute intraabdominal or pelvic findings. The renal cyst will need follow-up. Patient in no distress. Will discharge home Differential Diagnosis Differential Diagnoses: The differential diagnosis associated with the presentation includes (SBO, volvulus, ischemic colitis, C diff colitis, infectious colitis, bilaterally pathology) Admission/Observation Consideration of admission/observation: Escalation of care including admission/observation considered Lab Data MDM Lab Attestation statement: I reviewed the patient's lab results. 05/18/25 11:04 05/18/25 11:04 Labs: Lab Results 05/18/25 05/18/25 05/18/25 Range/Units 11:04 15:44 17:20 WBC 10.0 (4.8-10.8) X10*3/uL RBC 4.07 L (4.60-5.80) X10*6/uL Hgb 12.8 L (14.0-18.0) g/dl Hct 38.6 L (42.0-52.0) % MCV 94.8 (80.0-98.0) fL MCH 31.4 (27.0-33.0) pg MCHC 33.2 (31.0-36.0) g/dl RDW 13.5 (11.0-16.0) % Plt Count 287 (160-400) X10*3/uL MPV 10.0 (9.4-12.4) fL Immature Gran % (Auto) 0.4 (0.0-0.4) % Neut % (Auto) 64.6 (45-73) % Lymph % (Auto) 25.6 (20-40) % [place] % (Auto) 7.0 (2-11) % Eos % (Auto) 1.8 (0-4) % Baso % (Auto) 0.6 (0-2) % Lymph # (Auto) 2.6 (1.2-4.9) X10*3/uL [place] # (Auto) 0.7 (0.1-1.2) X10*3/uL Eos # (Auto) 0.2 (0.0-0.4) X10*3/uL Baso # (Auto) 0.1 (0.0-0.2) X10*3/uL Abs Immat Gran (auto) 0.04 H (0.00-0.03) X10*3/uL Absolute Neuts (auto) 6.5 (2.0-8.3) x10*3/uL Absolute Nucleated RBC 0.000 (0.0-0.012) X10*3/uL Nucleated RBC % (auto) 0.0 (0.0-0.2) /100WBC Sodium 139 (135-145) mmol/L Potassium 4.5 (3.3-5.1) mmol/L Chloride 103 (96-108) mmol/L Carbon Dioxide 27 (22-29) mmol/L Anion Gap 14 (12-20) BUN 23 H (9-16) mg/dL Creatinine 1.06 (0.5-1.4) mg/dL Estim Creat Clear Calc 40.3 Estimated GFR > 60 Random Glucose 258 H (60-115) mg/dL Lactic Acid 1.4 (0.5-2.0) mmol/L Calcium 9.1 D (8.4-10.2) mg/dL Magnesium 1.8 (1.6-2.6) mg/dL Total Bilirubin 0.2 (0.0-1.0) mg/dL AST 33 (5-37) U/L ALT 44 H (0-40) U/L Alkaline Phosphatase 86 (39-117) U/L Troponin I High Sens 6.3 D (<3.5-35.0) ng/L Total Protein 7.1 (6.5-8.0) g/dL Albumin 4.5 (3.5-5.0) g/dL Lipase 39 (8-78) U/L Urine Color Yellow Urine Appearance Clear Urine pH 8.0 (5.0-9.0) Ur Specific [place] 1.015 (1.005-1.025) Urine Protein 100 (2+) H (Neg-Trace) mg/dL Urine Glucose (UA) 500 H (Negative) mg/dL Urine Ketones Negative (Negative) mg/dL Urine Blood Negative (Negative) Urine Nitrite Negative (Negative) Ur Leukocyte Esterase Negative (Negative) Urine RBC 0-2 (0-2) /HPF Urine WBC 0-5 (0-5) /HPF Ur Squamous Epith Cells 0-2 (0-2) /HPF Urine Bacteria None Seen (None Seen) Hyaline Casts 0-2 (0-2) /LPF Discharge Plan Discharge Clinical Impression: Abdominal bloating Patient Disposition: Home, Self-Care Instructions: Abdominal Pain (ED) Additional Instructions: 1. Endovascular stent in the proximal left external iliac artery, patent. 2. Bilateral inguinal hernias without CT evidence of incarceration or strangulation. 3. Multiple renal cysts, largest 3.4 cm in left interpolar region. 4. Small nonobstructing nephroliths bilaterally. 5. Liver with microlobulated contour and caudate lobe hypertrophy, suggestive of cirrhosis. 6. Hiatal hernia. 7. No acute intraabdominal or pelvic findings. Multiple renal cyst was noted in the left kidney. Please follow-up on an outpatient basis. Prescriptions: No Action amlodipine 10 mg tablet 10 mg PO DAILY Qty: 90 3RF lisinopril 10 mg tablet 10 mg PO DAILY Qty: 90 3RF pravastatin 20 mg tablet 20 mg PO BEDTIME Qty: 90 2RF aspirin 81 mg Tablet,Delayed Release (Dr/Ec) 81 mg PO DAILY glyburide 5 mg tablet 10 mg PO DAILY@0900 Gas Relief (simethicone) 250 mg capsule 250 mg PO BID PRN (Reason: abdominal distention) Qty: 30 0RF nitrofurantoin monohyd/m-cryst [Macrobid] 100 mg capsule 100 mg PO BID 7 Days Qty: 14 0RF Rx Instructions: must administer with a meal/food metformin 1,000 mg tablet 1,000 mg PO DAILY Referrals: Jemal Bustillos MD [Primary Care Provider, Internal Medicine] - 05/22/25 Print Language: Citizen Of [place]
[2025-05-18 14:20] LABS: Troponin-I High Sensitivity 6.3 ng/L (<3.5-35.0)
--- NOTE | 2025-05-18 15:45 | ECG_ITS ---
Test Reason : Abdominal pain Blood Pressure : */* mmHG Vent. Rate : 77 BPM Atrial Rate : 77 BPM P-R Int : 152 ms QRS Dur : 116 ms QT Int : 412 ms P-R-T Axes : 53 -56 44 degrees QTcB Int : 466 ms Normal sinus rhythm Right bundle branch block Left anterior fascicular block Bifascicular block Septal infarct (cited on or before 19-Feb-2025) Abnormal ECG When compared with ECG of 19-Feb-2025 20:07, No significant change was found Referred By: Eugene Lala Electronically Signed By: Richie Brown
[2025-05-18 15:52] LABS: Appearance Urine Clear; Glucose Urine UA 500 mg/dL (Negative); PH 8.0 (5.0-9.0); Specific Gravity - Urine 1.015 (1.005-1.025); UMIC TRIGGER UACC YES
--- OUTSIDE RECORDS SUMMARY | 2025-05-18 16:29 | XMS_ITS | Patient Health Record ---
Author Organization [facility] Address [address] [place] [id number] Care Team Providers Care Dictaphone Mechanic Name Role Phone Ileana Bustillos MD Primary Care Provider UnavailNicolás Cheney Jr Unavailable Allergies No Known Allergies Reason For Referral No Information Medications Medication SIG (Take, Route, Frequency, Duration) Notes Start Date End Date Status Ondansetron HCl 4 MG Tablet TAKE 1 TABLE T ORALLY EVERY 6 HOURS 7 DAYS Oral; Duration: 7 Active Aspirin 81 81 MG Tablet Delayed Release 1 tablet Orally Once a day; Duration: 30 day(s) 06/30/2023 Active Nicotine 21 MG/24HR Patch 24 Hour APPLY 1 PATCH TO SKIN TOPICALLY ONCE A DAY FOR 21 DAYS Transdermal; Duration: 21 Active Atorvastatin Calcium 80 MG Tablet TAKE 1 TABLET BY MOUTH EVERYDAY AT BEDTIME Oral; Duration: 90 Active Metoprolol Tartrate 50 MG Tablet Oral; Duration: 30 Active Brilinta 90 MG Tablet TAKE 1 TABLET BY M OUTH TWO TIMES A DAY Oral; Duration: 30 Active Lisinopril 20 MG Tablet Oral; Duration: 90 Active glyBURIDE 5 MG Tablet TAKE 2 TABLETS BY MOUTH EVERY MORNING Oral; Duration: 90 Active Omeprazole 20 MG Capsule Delayed Release Oral; Duration: 30 Active Immunizations Vaccine Route Administration Date Status Comme nts Influenza Unknown 06/30/2023 Refused Social History Tobacco Use: Social History Observation Description Date Details (start date - stop date) Current Smoker NA - NA Social History Drugs/Alcohol: Social Info Question Answer Notes Alcohol Screen Did you have a drink containing alcohol in the past year? No Points 0 Interpretation Negative Tobacco Use: Social Info Question Answer Notes Tobacco Use/Smoking Patient is a current smoker Additional Details Category Social Info Options Details Miscellaneous: Marital status: Occupation: retired Problems Problem Type SNOMED Code ICD Code Onset Dates Problem Status W/U Status Risk Notes Problem Acute gastritis (disorder) (90639880) Acute gastritis without hemorrhage, unspecified gastritis type (K29.00) Active confirmed Plan Of Treatment No Information Insurance Providers Payer Name Payer Address Payer Phone Subscriber Number Group Number Insured Name Patient Relationship to Insured Coverage Start Date Coverage End Date [facility] [address] [place] [phone] [id number] BETTY MENDEZ Self - patient is the insured MEDICAID OF [facility] [address] [place] [address] [id number] BETTY MENDEZ Self - patient is the insured Medical (General) History Medical History History ICD Code Diabetes mellitus Coronary artery disease with history NSTEMI and PCI with stent placement x205/22 Hypertension Hyperlipidemia Peripheral vascular disease TIA Nephrolithiasis Back pain Surgical History Surgery Date(Month/Year) PCI/ALVAREZ x2 05/22/2023 Kidney stone removal 09/28/21 Iliac artery stent placement
--- OUTSIDE RECORDS SUMMARY | 2025-05-18 16:30 | XMS_ITS | Patient Health Record ---
Author Organization Jemal Bustillos III, MD Address [address] [place] [address] Care Team Providers Care Fur Tanner Name Role Phone Dr. Jemal Bustillos III [...] Electrolytes Reviewed date:12/30/2024 08:44:06 PM Interpretation: Performing Lab:[facility], [address] [place] [address] Notes/Report: Sodium 137 135-145 mmol/L Potassium 5.2 3.3-5.1 mmol/L Chloride 102 96-108 mmol/L Carbon Dioxide 27 22-29 mmol/L Anion Gap 13 12-20 US bladder Reviewed date:05/30/2024 11:42:26 AM Interpretation: Performing Lab: Notes/Report: [address] [address] Ultrasound Report Signed Patient: Antolin Perdomo MR#: [id number] 680 : 1940 Acct:[id number] Age/Sex: 84 / M ADM Date: 05/18/24 Loc: HO.US Attending Dr: Les Alcantar MD Ordering Physician: Les Alcantar MD Date of Service: 05/18/24 Procedure(s): US bladder Accession Number(s): [id number] cc: Les Alcantar MD; Jemal Bustillos MD [...] by: Lana Borja MD 05/28/2024 09:01 AM [facility] Dictated By: Lana Borja MD Signed By: <Electronically signed by Lana Borja MD in OV> 05/28/24 0901 DD/ 1417 TD/TT: 05/18/24 1426 Director Of Dementia Operations: [address] [address] Ultrasound Report Signed Patient: Radha Perdomo MR#: [id number] 680 : 1940 Acct:[id number] Age/Sex: 84 / M ADM Date: 05/18/24 Loc: HO.US Attending Dr: Geovanni Rascon MD Ordering Physician: Les Alcantar MD Date of Service: 05/18/24 Procedure(s): US bladder Accession Number(s): [id number] cc: Les Alcantar MD; Jemal Bustillos MD [...] by: Lana Borja MD 05/28/2024 09:01 AM [facility] Dictated By: Lana Borja MD Signed By: <Electronically signed by Lana Borja MD in OV> 05/28/24 0901 DD/ 1417 TD/TT: 05/18/24 1426 Director Of Dementia Operations: Glucose, Whole Blood Reviewed date:05/26/2024 04:19:01 PM Interpretation: Performing Lab:[facility], [address] [place] [phone] Notes/Report: Glucose, Whole Blood 49 60-115 mg/dL METER # : [id number] Pathology Reviewed date:05/30/2024 11:42:26 AM Interpretation: Performing Lab:[facility], [address] [place] [phone] Notes/Report: --- Name: Antolin Perdomo Age/Sex: 84/M : 1940 Unit#: [id number] Attend Dr: Paulino Garcia MD Re05/26/24 Statu s: [facility] [place] Location: [facility] Disch: --- SPEC : [id number] RECD : 05/26/24 STATUS: ZACKARY GILL NUM: [id number] KRYSTAL: 05/26/[address]: Paulino Garcia MD ENTERED: 05/26/24 SP [...] measures up to 0.15 cm in thickness. Multi Sensor Operator sections are submitt ed in a cassette labeled A1 to include the margin of resection of the cystic duct. CEDS Copies To: Jemal Bustillos MD [address], [address] [place], [place] [id number] Paulino Garcia MD [facility] General Surgeons [address] [place] [address] [email or web address] [email or web address] CONTINUED ON NEXT PAGE --- Name: Antolin Perdomo Age/Sex: 84/M : 1940 Unit#: [id number] Attend Dr: Paulino Garcia MD Re05/26/24 Status : [facility] Location: [facility] Disch: --- SPEC : [id number] RECD : 05/26/24 STATUS: ZACKARY GILL NUM: [id number] KRYSTAL: 05/26/[address] [facility] DR: Paulino Garcia MD ENTERED: 05/26/24 SP TYPE: Surgical OTHR DR: Jemal Bustillos MD ORDERED: Chanelle Meraz L3 --- Signed (signature on file) Katya Darcy 05/29/24 1255 --- END OF REPORT Glucose, Whole Blood Reviewed date:05/26/2024 04:19:01 PM Interpretation: Performing Lab:[facility], [address] [place] [phone] Notes/Report: Glucose, Whole Blood 185 60-115 mg/dL METER # : [id number] Glucose, Whole Blood Reviewed date:05/26/2024 04:19:01 PM Interpretation: Performing Lab:[facility], [address] [place] [phone] Notes/Report: Glucose, Whole Blood 180 60-115 mg/dL METER # : [id number] Diabetic Eye Exam Reviewed date:07/24/2024 02:48:35 PM Interpretation:undefined Performing Lab: Notes/Report: undefined Glucose, Whole Blood Reviewed date:08/05/2024 09:22:41 AM Interpretation: Performing Lab:[facility], [address] [place] [phone] Notes/Report: Glucose, Whole Blood 131 60-115 mg/dL METER # : [id number] Pathology Reviewed date:08/05/2024 09:22:41 AM Interpretation: Performing Lab:[facility], [address] [place] [phone] Notes/Report: --- Name: Antolin Perdomo Age/Sex: 84/M : 1940 [facility]#: [id number] Unit#: [id number] Attend Dr: Les Alcantar MD Re07/24/24 Status : [facility] Location: [facility] Disch: --- SPEC : [id number] RECD: 07/24/24-131 STATUS: ZACKARY GILL NUM: [id number] KRYSTAL: 07/24/24-1259 [facility] DR: Les Alcantar MD ENTERED: 07/24/24- 18 [...] ed intradepartmentally. Copies To: Les Alcantar MD [facility] Urology Services [address] [place] [address] [address] [place], [place] [phone] Jemal Bustillos MD [address] [place] [address], [address] [place], [place] [id number] --- Signed (signature on file) Rocky Stacy MD 07/26/24 1426 --- END OF REPORT Complete Blood Count Auto Di ff Reviewed date:10/20/2024 09:05:17 AM Interpretation: Performing Lab:[facility], [address] [place] [phone] Notes/Report: White Blood Count 10.6 4.8-10.8 X10*3/uL [...] NRBC Abs Auto 0.000 0.0-0.012 X10*3/uL Comprehensive [place]. Panel Fa st Reviewed date:10/20/2024 09:05:17 AM Interpretation: Performing Lab:[facility], [address] [place] [phone] Notes/Report: Sodium 139 135-145 mmol/L Potassium 5.7 [...] Panel Reviewed date:10/20/2024 09:05:17 AM Interpretation: Performing Lab:[facility], [address] [place] [phone] Notes/Report: Triglycerides 179 <150 mg/dL Desirable Triglyceride: [...] Random Reviewed date:10/20/2024 09:05:17 AM Interpretation: Performing Lab:[address] [phone] Notes/Report: Creatinine Urine 51.26 Microalbumin Urine 417.0 Microalbum/Creatinine Ratio Ur 813.4 <30 ug/mg cr Albumin/Creatinine Ratio Reference Ranges: Normal: < 30 ug/mg creatinine Microalbuminuria: 30 - 300 ug/mg creatinine Clinical Albuminuria: > 300 ug/mg creatinine Hemoglobin A1c Reviewed date:10/20/2024 09:05:17 AM Interpretation: Performing Lab:[address] [phone] Notes/Report: Hemoglobin A1c % 7.4 <6.0 % [...] average glucose, using the formula of the Y4R-Jkrcmve Average Glucose study (ADAG), Diabetes Care, Vol.31,#8, Dec. 2007 US renal BI Reviewed date:02/23/2025 10:42:54 AM Interpretation: Performing Lab: Notes/Report: [address] [address] Ultrasound Report Signed Patient: Antolin Perdomo MR#: [id number] 680 : 1940 Acct:[id number] Age/Sex: 84 / M ADM Date: 01/22/25 Loc: . Attending Dr: Les Alcantar MD Ordering Physician: Les Alcantar MD Date of Service: 01/22/25 Procedure(s): US renal BI Accession Number(s): [id number] cc: Les Alcantar MD; Jemal Bustillos MD [...] 01/22/25 1613 DD/ 1612 TD/TT: 01/22/25 1612 Director Of Dementia Operations: [place] [address] Ultrasound Report Signed Patient: Radha Perdomo MR#: [id number] 680 : 1940 Acct:[id number] Age/Sex: 84 / M ADM Date: 01/22/25 Loc: HO.US Attending Dr: Geovanni Rascon MD Ordering Physician: Les Alcantar MD Date of Service: 01/22/25 Procedure(s): US sowmya Lawrence Accession Number(s): [id number] cc: Les Alcantar MD; Jemal Bustillos MD [...] Hillman MD in OV> 01/22/25 1613 DD/ 161 TD/TT: 01/22/25 161 Director Of Dementia Operations: Complete Blood Count Auto Di ff Reviewed date:02/23/2025 10:42:54 AM Interpretation: Performing Lab:[facility], [address] [place] [phone] Notes/Report: White Blood Count 9.6 4.8-10.8 X10*3/uL Red Blood Count 4.20 4.60-5.80 X10*6/uL Hemoglobin 13.2 14.0-18.0 g/dl Hematocrit 38.7 42.0-52.0 % Mean Corpuscular Volume 92.1 80.0-98.0 fL Mean Corpuscular Hemoglobin 31.4 27.0-33.0 pg Mean Corpuscular HGB Conc 34.1 31.0-36.0 g/dl Red Cell Distribution Width 13.5 11.0-16.0 % Platelet Count 236 160-400 X10*3/uL Mean Platelet Volume 10.4 9.4-12.4 fL Neutrophils Percent Auto 66.3 45-73 % Imm Gran Pct Auto 0.4 0.0-0.4 % Lymphocytes Percent Auto 22.9 20-40 % Monocytes Percent Auto 6.6 2-11 % Eosinophils Percent Auto 3.3 0-4 % Basophils Percent Auto 0.5 0-2 % NRBC Pct Auto 0.0 0.0-0.2 /100WBC Neutrophils Absolute Auto 6.4 2.0-8.3 x10*3/uL Imm Gran Abs Auto 0.04 0.00-0.03 X10*3/uL Lymphocytes Absolute Auto 2.2 1.2-4.9 X10*3/uL Monocytes Absolute Auto 0.6 0.1-1.2 X10*3/uL Eosinophils Absolute Auto 0.3 0.0-0.4 X10*3/uL Basophils Absolute Auto 0.1 0.0-0.2 X10*3/uL NRBC Abs Auto 0.000 0.0-0.012 X10*3/uL White Blood Count 9.6 4.8-10.8 X10*3/uL Red Blood Count 4.20 4.60-5.80 X10*6/uL Hemoglobin 13.2 14.0-18.0 g/dl Hematocrit 38.7 42.0-52.0 % Mean Corpuscular Volume 92.1 80.0-98.0 fL Mean Corpuscular Hemoglobin 31.4 27.0-33.0 pg Mean Corpuscular HGB Conc 34.1 31.0-36.0 g/dl Red Cell Distribution Width 13.5 11.0-16.0 % Platelet Count 236 160-400 X10*3/uL Mean Platelet Volume 10.4 9.4-12.4 fL Neutrophils Percent Auto 66.3 45-73 % Imm Gran Pct Auto 0.4 0.0-0.4 % Lymphocytes Percent Auto 22.9 20-40 % Monocytes Percent Auto 6.6 2-11 % Eosinophils Percent Auto 3.3 0-4 % Basophils Percent Auto 0.5 0-2 % NRBC Pct Auto 0.0 0.0-0.2 /100WBC Neutrophils Absolute Auto 6.4 2.0-8.3 x10*3/uL Imm Gran Abs Auto 0.04 0.00-0.03 X10*3/uL Lymphocytes Absolute Auto 2.2 1.2-4.9 X10*3/uL Monocytes Absolute Auto 0.6 0.1-1.2 X10*3/uL Eosinophils Absolute Auto 0.3 0.0-0.4 X10*3/uL Basophils Absolute Auto 0.1 0.0-0.2 X10*3/uL NRBC Abs Auto 0.000 0.0-0.012 X10*3/uL C ORRECTED REPORT C ORRECTED REPORT Comprehensive Met. Panel Reviewed date:02/23/2025 10:42:54 AM Interpretation: Performing Lab:[facility], [address] [place] [phone] Notes/Report: Sodium 138 135-145 mmol/L Potassium 5.5 3.3-5.1 mmol/L Chloride 106 96-108 mmol/L Carbon Dioxide 23 22-29 mmol/L Anion Gap 15 12-20 Blood Urea Nitrogen 28 9-16 mg/dL Creatinine 1.10 0.5-1.4 mg/dL Creatinine Clr Calc Pharmacy 37.2 eGFR (calculated from the MDRD study equation) and eCrCl (calculated from the Cockcroft-Gault equation) are based on different parameters and may not yield comparable results. If eCrCl result is absurd, please check patient's height/weight. Estimated Glomerular Filt Rate > 60 Chronic Kidney Disease: Estimated GFR < 60 mL/min/1.73m2 Severe Kidney Disease: Estimated GFR < 15 mL/min/1.73m2 Glucose Random 217 60-115 mg/dL Calcium 9.7 8.4-10.2 mg/dL Bilirubin Total 0.2 0.0-1.0 mg/dL Aspartate Amino Transferase 22 5-37 U/L Alanine Aminotransferase 23 0-40 U/L Total Protein 7.1 6.5-8.0 g/dL Albumin Level 4.5 3.5-5.0 g/dL Alkaline Phosphatase 87 39-117 U/L Magnesium Reviewed date:02/23/2025 10:42:54 AM Interpretation: Performing Lab:[facility], [address] [place] [phone] Notes/Report: Magnesium 2.0 1.6-2.6 mg/dL Lipase Reviewed date:02/23/2025 10:42:54 AM Interpretation: Performing Lab:[facility], [address] [place] [phone] Notes/Report: Lipase 25 8-78 U/L Urine Culture Reviewed date:02/23/2025 10:42:53 AM Interpretation: Performing Lab:[facility], [address] [place] [phone] Notes/Report: O:ENTFAC Enterococcus faecalis Urine Culture Quant Urine Culture > 100,000 cfu/mL Ampicillin <=2 Levofloxacin 0.5 Nitrofurantoin <=16 Tetracycline >=16 Vancomycin 1 SLIDE REVIEW Reviewed date:02/23/2025 10:42:54 AM Interpretation: Performing Lab:[facility], [address] [place] [phone] Notes/Report: SLIDE REVIEW VERIFIED UA CC w/rflx Micro + Cult Reviewed date:02/23/2025 10:42:54 AM Interpretation: Performing Lab:[facility], [address] [place] [phone] Notes/Report: Urine, Clean Catch Color Urine Yellow Appearance Urine Clear PH 5.0 5.0-9.0 Glucose Urine UA 100 Negative mg/dL Urine Blood Trace Negative Specific [place] - Urine 1.025 1.005-1.025 Urine Protein 100 (2+) Neg-Trace mg/dL Urine Ketones Negative Negative mg/dL Nitrite Urine Negative Negative Leukocyte Esterase Urine Moderate (2+) Negative UA ClnCatch+Micro w/rflx Cul t Reviewed date:02/23/2025 10:42:54 AM Interpretation: Performing Lab:[facility], [address] [place] [phone] Notes/Report: Urine, Clean Catch Color Urine Yellow Appearance Urine Clear PH 5.0 5.0-9.0 Glucose Urine UA 100 Negative mg/dL Urine Blood Trace Negative Specific [place] - Urine 1.025 1.005-1.025 Urine Protein 100 (2+) Neg-Trace mg/dL Urine Ketones Negative Negative mg/dL Nitrite Urine Negative Negative Leukocyte Esterase Urine Moderate (2+) Negative RBC Urine 0-2 0-2 /HPF WBC Urine 21-50 0-5 /HPF Squamous Epithelial Cell Urine 0-2 0-2 /HPF Bacteria Urine Trace None Seen Hyaline Casts Urine 0-2 0-2 /LPF CT abdomen pelvis w con Reviewed date:02/23/2025 10:42:54 AM Interpretation: Performing Lab: Notes/Report: [address] [place] [address] CT Scan Report Signed Patient: Antolin Perdomo MR#: [id number] 680 : 1940 Acct:[id number] Age/Sex: 84 / M ADM Date: 02/19/25 Loc: HO.ED Attending Dr: Ordering Physician: Laya Gomez MD Date of Service: 02/19/25 Procedure(s): CT abdomen pelvis w IV con Accession Number(s): [id number] cc: Jemal Bustillos MD; Laya Gomez MD Report Number: [id number]: Total DLP = 340.00 mGy-cm Reason for Exam: diffuse abd pain CLINICAL HISTORY: diffuse abd pain CT abdomen and pelvis with contrast Comparison: CT/SR - CT ABDOMEN PELVIS WITH IV CONTRAST - 10/21/23 17:59 EDT Findings: No consolidation or effusion. Calcified coronary atherosclerotic disease. Prior cholecystectomy. Left renal interpolar region cortical low-attenuation lesion, 4.9 cm, right renal lower pole 0.8 cm, upper pole 1.7 cm; renal cysts. Left renal interpolar region 0.3 cm, lower pole 0.5 cm, right interpolar region 0.4 cm nonobstructing nephroliths. The prostate is heterogeneous in attenuation and hypertrophic. No bowel obstruction, pneumoperitoneum, or pneumatosis. Left external common iliac artery endovascular stent. Focal> 60% stenosis of the left proximal femoral artery, axial image number 80 of 90 series 3. The appendix is not identified. Dibb-ol-hhchfcud osteopenia. Lumbar levoscoliosis. IMPRESSION: 1. No acute intraabdominal or pelvic pathology. 2. Nonobstructing bilateral nephrolithiasis. 3. Prostatic hypertrophy. Clinical correlation suggested. 4. Left external common iliac artery stent. 5. Calcified coronary atherosclerotic disease. 6. Interval cholecystectomy. This document has been electronically signed by: Billy Galloway MD on 02/19/2025 21:14:20 Dictated By: Billy Galloway MD Signed By: <Electronically signed by Billy Galloway MD in OV> 02/19/252114 DD/ 13 TD/TT: 02/19/252113 Director Of Dementia Operations: [address] [address] [address] Scan Report Signed Patient: Radha Perdomo MR#: [id number] 680 : 1940 Acct:[id number] Age/Sex: 84 / M ADM Date: 02/19/25 Loc: HO.ED Attending Dr: Ordering Physician: Laya Gomez MD Date of Service: 02/19/25 Procedure(s): CT abdomen pelvis w IV con Accession Number(s): [id number] cc: Jemal Bustillos MD; Laya Gomez MD Report Number: [id number]: Total DLP = 340.00 mGy-cm Reason for Exam: diffuse abd pain CLINICAL HISTORY: diffuse abd pain CT abdomen and pelvi s with contrast Comparison: CT/SR - CT ABDOMEN PELVIS WITH IV CONTRAST - 10/21/23 17:59 EDT Findings: No consolidation or effusion. Calcified coronary atherosclerotic disease. Prior cholecystectomy. Left renal interpola r region cortical low-attenuation lesion, 4.9 cm, right renal lower po le 0.8 cm, upper pole 1.7 cm; renal cysts. Left renal interpolar region 0. 3 cm, lower pole 0.5 cm, right interpolar region 0.4 cm nonobstructing nephroliths. The prostate is heterogeneous in attenuation and hypertrophic. No bowel obstruction , pneumoperitoneum, or pneumatosis. Left external common iliac artery endovascular stent. Focal> 60% stenosis of the left proximal femoral artery, axial image number 80 of 90 series 3. The appendix is not identified. Bifb-uk-endhkbym osteopenia. Lumbar levoscoliosis. IMPRESSION: 1. No acute intraabdominal or pelvic pathology. 2. Nonobstructing bilateral nephrolithiasis. 3. Prostatic hypertrophy. Clinical correlation suggested. 4. Left external com mon iliac artery stent. 5. Calcified coronar y atherosclerotic disease. 6. Interval cholecystectomy. This document has be en electronically signed by: Billy Galloway MD on 02/19/2025 21:14:20 Dictated By: Billy Galloway MD Signed By: <Electronically signed by Billy Galloway MD in OV> 02/19/252114 DD/ 13 TD/TT: 02/19/252113 Director Of Dementia Operations: Complete Blood Count Auto Di ff (Not yet reviewed by provider) Interpretation: Performing Lab:[facility], [address] [place] [phone] Notes/Report: White Blood Count 10.0 4.8-10.8 X10*3/uL Red Blood Count 4.07 4.60-5.80 X10*6/uL Hemoglobin 12.8 14.0-18.0 g/dl Hematocrit 38.6 42.0-52.0 % Mean Corpuscular Volume 94.8 80.0-98.0 fL Mean Corpuscular Hemoglobin 31.4 27.0-33.0 pg Mean Corpuscular HGB Conc 33.2 31.0-36.0 g/dl Red Cell Distribution Width 13.5 11.0-16.0 % Platelet Count 287 160-400 X10*3/uL Mean Platelet Volume 10.0 9.4-12.4 fL Neutrophils Percent Auto 64.6 45-73 % Imm Gran Pct Auto 0.4 0.0-0.4 % Lymphocytes Percent Auto 25.6 20-40 % Monocytes Percent Auto 7.0 2-11 % Eosinophils Percent Auto 1.8 0-4 % Basophils Percent Auto 0.6 0-2 % NRBC Pct Auto 0.0 0.0-0.2 /100WBC Neutrophils Absolute Auto 6.5 2.0-8.3 x10*3/uL Imm Gran Abs Auto 0.04 0.00-0.03 X10*3/uL Lymphocytes Absolute Auto 2.6 1.2-4.9 X10*3/uL Monocytes Absolute Auto 0.7 0.1-1.2 X10*3/uL Eosinophils Absolute Auto 0.2 0.0-0.4 X10*3/uL Basophils Absolute Auto 0.1 0.0-0.2 X10*3/uL NRBC Abs Auto 0.000 0.0-0.012 X10*3/uL Comprehensive Met. Panel (No t yet reviewed by provider) Interpretation: Performing Lab:[facility], [address] [place] [phone] Notes/Report: Sodium 139 135-145 mmol/L Potassium 4.5 3.3-5.1 mmol/L Chloride 103 96-108 mmol/L Carbon Dioxide 27 22-29 mmol/L Anion Gap 14 12-20 Blood Urea Nitrogen 23 9-16 mg/dL Creatinine 1.06 0.5-1.4 mg/dL Creatinine Clr Calc Pharmacy 40.3 eGFR (calculated from the MDRD study equation) and eCrCl (calculated from the Cockcroft-Gault equation) are based on different parameters and may not yield comparable results. If eCrCl result is absurd, please check patient's height/weight. Estimated Glomerular Filt Rate > 60 Chronic Kidney Disease: Estimated GFR < 60 mL/min/1.73m2 Severe Kidney Disease: Estimated GFR < 15 mL/min/1.73m2 Glucose Random 258 60-115 mg/dL Calcium 9.1 8.4-10.2 mg/dL Bilirubin Total 0.2 0.0-1.0 mg/dL Aspartate Amino Transferase 33 5-37 U/L Alanine Aminotransferase 44 0-40 U/L Total Protein 7.1 6.5-8.0 g/dL Albumin Level 4.5 3.5-5.0 g/dL Alkaline Phosphatase 86 39-117 U/L Magnesium (Not yet reviewed by provider) Interpretation: Performing Lab:[address] [address] Notes/Report: Magnesium 1.8 1.6-2.6 mg/dL Troponin-I High Sensitivity (Not yet reviewed by provider) Interpretation: Performing Lab:[address] [address] Notes/Report: Troponin-I High Sensitivity 6.3 <3.5-35.0 ng/L The [place] high sensitivity Troponin-I results should be used in conjunction with other diagnostic information such as ECG, clinical observations and information, and patient symptoms to aid in the diagnosis of NH. Lipase (Not yet reviewed by provider) Interpretation: Performing Lab:[address] [address] Notes/Report: Lipase 39 8-78 U/L UA ClnCatch+Micro w/rflx Cul t (Not yet reviewed by provider) Interpretation: Performing Lab:[address] [address] Notes/Report: Urine, Clean Catch Color Urine Yellow Appearance Urine Clear PH 8.0 5.0-9.0 Glucose Urine UA 500 Negative mg/dL Urine Blood Negative Negative Specific [place] - Urine 1.015 1.005-1.025 Urine Protein 100 (2+) Neg-Trace mg/dL Urine Ketones Negative Negative mg/dL Nitrite Urine Negative Negative Leukocyte Esterase Urine Negative Negative RBC Urine 0-2 0-2 /HPF WBC Urine 0-5 0-5 /HPF Squamous Epithelial Cell Urine 0-2 0-2 /HPF Bacteria Urine None Seen None Seen Hyaline Casts Urine 0-2 0-2 /LPF Reason For Referral Reason Evaluate and Treat Severe Left Dupuytren Left 4th and 5th finger Diagnosis 1 Dupuytrens contractu re (M72.0) Referral Organization Jemal Bustillos III, MD Referring Provider First Name Jemal Referring Provider Last Name Tressa Referring Provider Speciality Internal edicine Referred Provider Kathie Guerrero Referred Provider Specialty Hand Surgery General Notes PRian 02:37:04 PM >Referral faxed. Pt is aware.Flo Amber 10/25/2024 09:44:47 AM > Patient made appointment for 11/06/2024 @ 9:30am with Chente STEWART Referral Priority Routine Referral Appointment Date 11/06/2024 Reason Consult and Treat Follow up PAD Needs Carotid U/S Diagnosis 1 Peripheral arterial disease (I73.9) Referral Organization Jemal Bustillos III, MD Referring Provider First Name Jemal Referring Provider Last Name Tressa Referring Provider Speciality Internal edicine Referred Provider [facility] Referred Provider Specialty Unknown General Notes Fiona Rossi 02/19/2025 09:20:01 AM > Cover sheet, referral and progress note faxed.Aaliyah Suzanne CMA 02/20/2025 09:23:34 AM >I called [phone] press 6 spoke to Edel made patient appt with Tesha Alberto for 03/14/2025 at 2pm information called and mailed to patient Referral Priority Routine Referral Appointment Date 03/14/2025 Medications Medication SIG (Take, Route, Frequency, Duration) Notes Start Date End Date Status Ondansetron HCl 4 MG 1 tablet Orally every six hours if needed 02/16/2025 Active Solifenacin Succinate 5 MG Oral Active Pravastatin Sodium 20 MG TAKE 1 TABLET BY MOUTH EVERYDAY AT BEDTIME Oral Active metFORMIN HCl 1000 MG TAKE 1 [...] has Insurance PA approval from 07/05/2024- Active Immunizations Vaccine Route Administration Date Status [...] Problem Status W/U Status Risk Notes Problem 69292767 Hyperlipidemia (E78.5) Active confirmed His lipids have been stable. No change in his regimen was necessary. The carotid arteries appear normal today. Problem 096728713 Underweight (R63.6) Active confirmed His appetite is good and his body mass index is slightly over 21.His nutrition is stable. I recommended he stabilize his weight at this level. Problem 54837310 Type 2 diabetes mellitus without complications (E11.9) Active confirmed In September of this year the hemoglobin A1c was 7.4. His most recent glucose which was not fasting was 217. I have ordered comprehensive blood work which will include fasting lipids, microalbumin, hemoglobin A1c and a fasting glucose to better manage his diabetes. He declines to home testing of his glucose levels Problem 03020027 Calculus of ureter (N20.1) Active confirmed A stent has b een inserted and then removed. The stone was removed and was calcium oxalate. It is free of pain at this time, but weakened and has lost 5 pounds with his recent surgery and hospitalization. Problem Calculus of kidney with calculus of ureter (992644542) Calculus of kidney with calculus of ureter (N20.2) Active confirmed He has had no renal colic since his last visit. He denies hematuria. Problem 505607934 GERD without esophagitis (K21.9) Active confirmed His reflux symptoms have been well controlled with medication. He has been sleeping through the night lately. Problem 82776504 Essential hypertension (I10) Active confirmed His blood pressure is currently adequately controlled. He has been compliant with his medications. I recommended aggressive sodium restriction to reduce his systolic blood pressure somewhat. Problem 32394828 Tobacco dependence (F17.200) Active confirmed He continues to smoke a package of cigarettes per day. He says he has no intention of trying to stop smoking at this point in his life. Problem 67145443 COPD (chronic obstructive pulmonary disease) (J44.9) Active confirmed He continue s to smoke about 10 cigarettes daily. He is comfortable breathing room air at rest. At this point he does not need home oxygen. We have discussed smoking cessation strategies at length today. He was offered medications and we'll consider it. Problem 24056520 Hearing loss, bilateral (H91.93) Active confirmed There has been no change in his hearing. He did quite well over the telephone today. Problem 942296578 Pulmonary nodule (R91.1) Active confirmed He has a 7 mm right lower lobe nodule which will be followed carefully. Problem Contracture of palmar fascia (565357080) Dupuytrens contracture (M72.0) Active confirmed He has mild to moderate bilateral Dupuytren's contracture in the palm of each hand. It has become painful in the left hand recently. Problem 603235131 Peripheral arterial disease (I73.9) Active confirmed He continues to have claudication primarily in his left leg. He has seen his vascular surgeon recently. She has operated on the left leg. It is warm today. He complains of pain in his left leg with walking length of the [employer]. Problem 565216031 Cataract (H26.9) Active confirmed Problem 590977524 Complex renal cyst (N28.1) Active confirmed The cyst will b e imaged periodically. Problem 147130223 Benign prostatic hyperplasia, unspecified whether lower urinary tract symptoms present (N40.0) Active confirmed He rises from sleep 3 or 4 times a night to urinate. We have discussed lifestyle modification as a way to reduce nocturia. A prostate procedure has been scheduled by his urologist in the near future. Problem 572241851 S/P cholecystectomy (Z90.49) Active confirmed He underwent a cholecystectomy for acute cholelithiasis 14 days ago. He is now recovering at home. He remains weak but his appetite is fair. Problem [id number] Left carotid artery stenosis (I65.22) Active confirmed He has had an endarterectomy and now has a good pulse in the neck. Problem Atherosclerotic heart disease of [place] coronary artery without angina pectoris ([id number] ) Arteriosclerotic coronary artery disease (I25.10) Active confirmed He recently had an angioplasty of the right coronary artery and 2 stents put into the left system May 25, 2023 at [facility]. He says he is unable to tolerate the metoprolol as well as the Brilinta. He has had no angina since his last visit. Vital Signs Heart Rate 80 /min 04/19/2025 Temperature 98.0 degrees Fahrenheit 04/19/2025 Respiratory Rate 16 /min 04/19/2025 Oximetry 99 % 04/19/2025 Blood pressure diastolic 55 mm Hg 04/19/2025 Height 65 in 04/19/2025 Blood pressure systolic 139 mm Hg 04/19/2025 Weight 130 lbs 04/19/2025 BMI 21.63 kg/m2 04/19/2025 Encounters Encounter Location Date Provider Diagnosis Jemal Bustillos III, MD [address] [place] [address] DR [place], ADRIAN [id number] 06/07/2024 Jemal Bustillos Tobacco dependence F17.200 ; [...] artery stenosis I65.22 Jemal Bustillos III, MD [address] [place] [address] [place] [address] 06/27/2024 Jemal Bustillos Tobacco dependence F17.200 ; [...] function tests R79.89 Jemal Bustillos III, MD [address] [place] [address] [place] [address] 07/28/2024 Jemal Bustillos Tobacco dependence F17.200 ; [...] renal cyst N28.1 Jemal Bustillos III, MD [address] [place] [address] [place] [address] 10/11/2024 Jemal Bustillos Tobacco dependence F17.200 ; [...] arterial disease I73.9 Jemal Bustillos III, MD [address] [place] [address] [place] [address] 10/25/2024 Jemal Bustillos Tobacco dependence F17.200 ; COPD (chronic obstructive pulmonary disease) J44.9 ; Hyperkalemia E87.5 ; Hearing loss, bilateral H91.93 ; Type 2 diabetes mellitus without complications E11.9 ; Pulmonary nodule R91.1 ; Left carotid artery stenosis I65.22 ; Benign prostatic hyperplasia, unspecified whether lower urinary tract symptoms present N40.0 and Dupuytrens contracture M72.0 Jemal Bustillos III, MD [address] [place] [address] [place] [address] 12/26/2024 Jemal Bustillos Tobacco dependence F17.200 ; COPD (chronic obstructive pulmonary disease) J44.9 ; Type 2 diabetes mellitus without complications E11.9 ; Hearing loss, bilateral H91.93 ; GERD without esophagitis K21.9 ; Lumbar spine pain M54.5 and Dupuytrens contracture M72.0 Jemal Bustillos III, MD [address] [place] [address] [place] [address] 02/16/2025 Jemal Bustillos Tobacco dependence F17.200 ; COPD (chronic obstructive pulmonary disease) J44.9 ; Hearing loss, bilateral H91.93 ; Essential hypertension I10 ; Type 2 diabetes mellitus without complications E11.9 ; Pulmonary nodule R91.1 ; Calculus of ureter N20.1 and Dupuytrens contracture M72.0 Jemal Bustillos III, MD [address] [place] [address] [place] [address] 04/19/2025 Jemal Bustillos Tobacco dependence F17.200 ; Type 2 diabetes mellitus without complications E11.9 ; Hyperlipidemia E78.5 ; Essential hypertension I10 ; Underweight R63.6 ; Hearing loss, bilateral H91.93 ; Left carotid artery stenosis I65.22 ; GERD without esophagitis K21.9 ; Arteriosclerotic coronary artery disease I25.10 ; Complex renal cyst N28.1 and S/P cholecystectomy Z90.49 Jemal Bustillos III, MD [address] [place] [address] [place] [address] 06/07/2024 Jemal Bustillos III, MD [address] [place] [address] [place] [address] 06/15/2024 Jemal Bustillos III, MD [address] [place] [address] [place] [address] 07/05/2024 Jemal Bustillos Tobacco dependence F17.200 Jemal Bustillos III, MD [address] [facility] [place] [address] 07/12/2024 Jemal Bustillos III, MD [address] [place] [address] [place] [address] 08/14/2024 Jemal Bustillos III, MD [address] [facility] [place] [address] 02/20/2025 Jemal Bustillos III, MD [address] [facility] [place] [address] 02/23/2025 Jemal Bustillos III, MD [address] [place] [address] [place] [address] 02/23/2025 Jemal Bustillos III, MD [address] [place] [address] [place] [address] 02/28/2025 Jemal Bustillos Assessments Encounter Date Diagnosis (ICD Code) Assessment Notes T reatment Notes Treatment Clinical Notes 06/07/2024 Tobacco dependence (ICD-10 - F17.200) He [...] offered medications and we'll consider it. 02/16/2025 Tobacco dependence (ICD-10 - F17.200) He [...] was offered medications and we'll consider it. 04/19/2025 Type 2 diabetes mellitus without complications (ICD-10 - E11.9) In September of this year the hemoglobin A1c was 7.4. His most recent glucose which was not fasting was 217. I have ordered comprehensive blood work which will include fasting lipids, microalbumin, hemoglobin A1c and a fasting glucose to better manage his diabetes. He declines to home testing of his glucose levels 04/19/2025 Tobacco dependence (ICD-10 - F17.200) He continues to smoke a package of cigarettes per day. He says he has no intention of trying to stop smoking at this point in his life. 07/05/2024 Tobacco dependence (ICD-10 - F17.200) He resumed smoking 10 cigarettes daily. I have counseled him at length today about smoking cessation program. 06/07/2024 S/P cholecystectomy (ICD-10 - Z90.49) He [...] with only one metformin tablet daily. 02/16/2025 Hearing loss, bilateral (ICD-10 - H91.93) There has been no change in his hearing. He did quite well over the telephone today. 04/19/2025 Hyperlipidemia (ICD- 10 - E78.5) His lipids have been stable. No change in his regimen was necessary. The carotid arteries appear normal today. 06/07/2024 Essential hypertensi on (ICD-10 - I10) [...] well over the telephone today. 02/16/2025 Essential hypertensi on (ICD-10 - I10) His blood pressure is currently stable at 142/62 and no change in his regimen was necessary. 04/19/2025 Essential hypertensi on (ICD-10 - I10) His blood pressure is currently adequately controlled. He has been compliant with his medications. I recommended aggressive sodium restriction to reduce his systolic blood pressure somewhat. 06/07/2024 Type 2 diabetes mellitus without complications [...] has been sleeping through the night lately. 02/16/2025 Type 2 diabetes mellitus without complications (ICD-10 - E11.9) His hemoglobin A1c has improved from 7.8 down to 7.4. Current therapy was continued with only one metformin tablet daily. 04/19/2025 Underweight (ICD-10 - R63.6) His appetite is good and his body mass index is slightly over 21.His nutrition is stable. I recommended he stabilize his weight at this level. 06/07/2024 Hyperlipidemia (ICD- 10 - E78.5) His [...] heavy lifting. His current regimen. We'll continue. 02/16/2025 Pulmonary nodule (ICD-10 - R91.1) He has a 7 mm right lower lobe nodule which will be followed carefully. 04/19/2025 Hearing loss, bilateral (ICD-10 - H91.93) There has been no change in his hearing. He did quite well over the telephone today. 06/07/2024 Complex renal cyst (ICD-10 - N28.1) [...] become painful in the left hand recently. 02/16/2025 Calculus of ureter (ICD-10 - N20.1) A stent has been inserted and then removed. The stone was removed and was calcium oxalate. It is free of pain at this time, but weakened and has lost 5 pounds with his recent surgery and hospitalization. 04/19/2025 Left carotid artery stenosis (ICD-10 - I65.22) He has had an endarterectomy and now has a good pulse in the neck. 06/07/2024 Benign prostatic hyperplasia, unspecified whether lower [...] the left system May 25, 2023 at [facility]. He says he is unable to [...] by his urologist in the near future. 02/16/2025 Dupuytrens contractu re (ICD-10 - M72.0) He has mild to moderate bilateral Dupuytren's contracture in the palm of each hand. It has become painful in the left hand recently. 04/19/2025 GERD without esophagitis (ICD-10 - K21.9) His reflux symptoms have been well controlled with medication. He has been sleeping through the night lately. 06/07/2024 Calculus of ureter (ICD-10 - N20.1) [...] left leg with walking length of the [employer] store. 07/28/2024 Chronic obstructive pulmonary disease, unspecified [...] become painful in the left hand recently. 04/19/2025 Arteriosclerotic coronary artery disease (ICD-10 - I25.10) He recently had an angioplasty of the right coronary artery and 2 stents put into the left system May 25, 2023 at [facility]. He says he is unable to tolerate the metoprolol as well as the Brilinta. He has had no angina since his last visit. 06/07/2024 Hearing loss, bilateral (ICD-10 - H91.93) There has been no change in his hearing. He did quite well over the telephone today. 06/27/2024 Arteriosclerotic coronary artery disease (ICD-10 - I25.10) He recently had an angioplasty of the right coronary artery and 2 stents put into the left system May 25, 2023 at [facility]. He says he is unable to [...] by his urologist in the near future. 04/19/2025 Complex renal cyst (ICD-10 - N28.1) The cyst will be imaged periodically. 06/07/2024 Left carotid artery stenosis (ICD-10 - [...] a good pulse in the neck. 04/19/2025 S/P cholecystectomy (ICD-10 - Z90.49) He underwent a cholecystectomy for acute cholelithiasis 14 days ago. He is now recovering at home. He remains weak but his appetite is fair. 06/27/2024 Abnormal liver function tests (ICD-10 - R79.89) The cause of his abnormal transaminases enzymes will be sought. 10/11/2024 Arteriosclerotic coronary artery disease (ICD-10 - I25.10) He recently had an angioplasty of the right coronary artery and 2 stents put into the left system May 25, 2023 at [facility]. He says he is unable to [...] left leg with walking length of the [employer] store. Plan Of Treatment Pending Test Test Name Order Date PROFILE, FASTING (COMPREHENSIVE METABOLI C) 04/19/2025 PROFILE, FASTING (COMPREHENSIVE METABOLI C) 01/29/2022 PROFILE, FASTING (COMPREHENSIVE METABOLI C) 04/06/2024 PROFILE, FASTING (COMPREHENSIVE METABOLI C) 07/05/2023 PROFILE, FASTING (COMPREHENSIVE METABOLI C) 07/28/2024 PROFILE, FASTING (COMPREHENSIVE METABOLI C) 02/23/2023 PROFILE, FASTING (COMPREHENSIVE METABOLI C) 08/04/2023 PROFILE, RANDOM (COMPREHENSIVE METABOLIC ) 06/22/2023 PROFILE, RANDOM (COMPREHENSIVE METABOLIC ) 12/26/2024 HEMOGLOBIN A1C (GLYCOHEMOGLOBIN) 023 LIPID PANEL 02/23/2023 PSA, TOTAL 04/19/2025 PSA, TOTAL 04/06/2024 CBC w DIFF 04/19/2025 CBC w DIFF 12/26/2024 CBC w DIFF 04/06/2024 CBC w DIFF 02/23/2023 SED RATE (ESR) 06/22/2023 URINALYSIS (UA) 10/13/2023 XR CHEST 2 VIEW PA & LAT 09/21/2023 CBC WITH AUTO DIFF 08/04/2023 CBC WITH AUTO DIFF 06/22/2023 CBC WITH AUTO DIFF 07/05/2023 CBC WITH AUTO DIFF 07/28/2024 Complete Blood Count Auto Diff Comprehensive Met. Panel 05/18/2025 Magnesium 05/18/2025 Troponin-I High Sensitivity 05/18/2025 Lipid Panel 08/04/2023 Lipid Panel 04/19/2025 Lipid Panel 07/28/2024 Lipid Panel 04/06/2024 Lipase 05/18/2025 Microalbumin, Random 02/23/2023 Microalbumin, Random 08/04/2023 Microalbumin, Random 12/26/2024 Microalbumin, Random 07/05/2023 Microalbumin, Random 04/19/2025 Microalbumin, Random 07/28/2024 Microalbumin, Random 04/06/2024 Hemoglobin A1c 07/28/2024 Hemoglobin A1c 04/06/2024 Hemoglobin A1c 08/04/2023 Hemoglobin A1c 12/26/2024 Hemoglobin A1c 04/19/2025 UA ClnCatch+Micro w/rflx Cult 05/18/2025 Next Appt Details Provider Name:Jemal Bustillos , 07/30/2025 09:30:00 AM, [address] [place] [address] HAMLET [place]ERR[place], [place], [address], Insurance Providers Payer Name Payer Address Payer Phone Subscriber Number Group Number Insured Name Patient Relationship to Insured Coverage Start Date Coverage End Date [facility] [address] [address] [address] [place] [address] [phone] [id number] Antolin Perdomo Self - patient is the insured MED[place] [address] [facility] [place] [id number] ConorAntolin nieves Self - patient is the insured MEDICARE [place] [address] [place] [address] [id number] Antolin Perdomo Self - patient is the [...] Cardiac cath with 2 stent placements at [facility] 04/2023 Cystoscopy with left uretera l stent subsequently removed, ureterolithiasis 09/2022 left carotid endarterectomy [facility], Dr. Alonso 09/2017 bilateral cataracts Hospitalization History Reason Date(Month/Year) Hospitalized at [facility] for [facility] state surgery TIA 08/2017
--- OUTSIDE RECORDS SUMMARY | 2025-05-18 16:31 | XMS_ITS | Clinical Summary ---
Author Organization [facility] Address [address] [place] [phone] Phone Care Team Providers Care Industrial Psychologist Name Role Phone Unavailable Primary Care Provider [...] Insurance [employer] MEDIC[employer] HMO [place] [address] [place] [address] MEDICARE HMO REPLACEMENT MEDICARE H[place] [place] [address] [address] [place] [address] [place] [address] MEDICARE HMO REPLACEMENT [employer] H[employer] REPLACEMENT Additional Source Comments The information contained in this document represents components of the legal health record. It is not the complete legal health record.[facility]
[2025-05-18] MEDS: iohexoL 350 MG/ML 100 ML INFUS..BTL IV (17:13)
== END 2025-05-18 18:17 | disposition home or self-care (01) ==
PROVIDERS: Emergency Medicine; Physician Assistant; Emergency Provider Emergency Medicine Emergency Medical Services; PCP Internal Medicine Medical Oncology
DX: R14.0 Abdominal distension (gaseous) (principal); R10.9 Unspecified abdominal pain; R11.0 Nausea; E78.5 Hyperlipidemia, unspecified; R50.9 Fever, unspecified; I73.9 Peripheral vascular disease, unspecified; Z86.73 Personal history of transient ischemic attack (TIA), and cerebral infarction without residual deficits; J44.9 Chronic obstructive pulmonary disease, unspecified; I10 Essential (primary) hypertension; N40.0 Benign prostatic hyperplasia without lower urinary tract symptoms; F17.210 Nicotine dependence, cigarettes, uncomplicated; Z79.82 Long term (current) use of aspirin; Z79.84 Long term (current) use of oral hypoglycemic drugs
CPT/HCPCS: 36415; 74174; 80053; 81001; 83605; 83690; 83735; 84484; 85025; 93005; 96361; 96374; 99285; J2405; Q9967

== ENCOUNTER → 2025-05-18 15:41 | Outpatient (BNV) | payer MEDICARE, MEDICAID, SELFPAY | PROVIDERS: Emergency Provider Emergency Medicine Emergency Medical Services; PCP Internal Medicine Medical Oncology; Visit Provider Radiology Diagnostic Radiology | DX: N20.0 Calculus of kidney (principal); K40.00 Bilateral inguinal hernia, with obstruction, without gangrene, not specified as recurrent; K44.9 Diaphragmatic hernia without obstruction or gangrene; Z95.820 Peripheral vascular angioplasty status with implants and grafts | CPT/HCPCS: 74174 ==

== ENCOUNTER → 2025-05-18 15:45 | Outpatient (BNV) | payer MEDICARE, MEDICAID, SELFPAY | PROVIDERS: Emergency Provider Emergency Medicine Emergency Medical Services; PCP Internal Medicine Medical Oncology; Visit Provider Internal Medicine Cardiovascular Disease | DX: I45.2 Bifascicular block (principal); I25.2 Old myocardial infarction | CPT/HCPCS: 93010 ==